=== PATIENT | female | born 1935 | race Caucasian/White ===

== ENCOUNTER → 2016-06-30 | Outpatient (CLI) | payer MEDICARE, MEDICAID ==
[2016-06-30 16:33] LABS: CH 30.4; CHCM 32.3; HCT 43.5 % (34.0-46.0); HDW 2.62; MCH 30.5 pg (25.0-35.0); MCHC 32.2 g/dL (31.0-37.0); MCV 94.6 fL (80.0-100.0); Mean Platelet Volume 6.7; RDW 13.9 % (11.5-15.5); WBC 7.4 k/uL (3.8-10.6)
[2016-06-30 16:42] LABS: Anion Gap 7 mmol/L; Blood Urea Nitrogen 14 mg/dL (7-17); Carbon Dioxide 29 mmol/L (22-30); Chloride 106 mmol/L (98-107); Non-African American GFR(MDRD) >60 (>60 ml/min/1.73 sqM); Potassium 4.2 mmol/L (3.5-5.1); Sodium 142 mmol/L (137-145)
== END | disposition home or self-care (01) ==
LOC: LABWHC1 15:52
PROVIDERS: ATTEND Internal Medicine Interventional Cardiology
DX: Z01.812 Encounter for preprocedural laboratory examination (principal); I73.9 Peripheral vascular disease, unspecified
CPT/HCPCS: 80051; 82565; 84520; 85027

== ENCOUNTER 2016-07-06 10:20 | Day surgery (SDC) | payer MEDICARE, MEDICAID ==
[2016-06-30 14:19] VITALS: BMI 28.1
[~2016-07-06 10:20] MED LIST: ASPIRIN 325 MG TAB PO ONE; SODIUM CHLORIDE 0.9% 1,000 ML in EMPTY BAG 1 BAG IV ONE
[2016-07-06 10:48] VITALS: RESP 18
[2016-07-06] MEDS: MIDAZOLAM 2 MG/2 ML VIAL IVP ONE ×2 (12:10→12:16)
[2016-07-06] MEDS ORDERED: LIDOCAINE 2% INJ 20 MG/ML SQ ONE (12:15)
[2016-07-06] MEDS ORDERED: HEPARIN SODIUM 1,000 UNIT/ML VIAL IV ONE (12:16)
[2016-07-06] MEDS: VERAPAMIL SYRINGE (5 MG/10 ML) INTRAARTER ONE ×2 (12:17→12:30)
[2016-07-06] MEDS ORDERED: IODIXANOL 320 MG/ML 100 ML INTRAARTER ONE (12:31)
[2016-07-06] MEDS ORDERED: SODIUM CHLORIDE 0.9% 1,000 ML IV SCH (12:45)
--- NOTE | 2016-07-06 13:10 | IR ---
EXAMINATION TYPE: IR angio abdominal w runoff DATE OF EXAM: 07/06/2016 1:05 PM COMPARISON: NONE HISTORY: Peripheral vascular occlusive disease. Fluoroscopy was applied to the referring clinician. See dictated report from cardiology.
[2016-07-06 18:18] VITALS: BP 125/62; PULSE 60; TEMP 98.2
--- NOTE | 2016-07-07 05:59 | PCN ---
DATE OF PROCEDURE: 07/06/2016 ABDOMINAL AORTOGRAM AND BILATERAL LOWER EXTREMITY RUNOFF PERFORMING PHYSICIAN: Salvador Cotton MD, stunner animal. PROCEDURE PERFORMED: 1. Abdominal aortogram. 2. Bilateral lower extremity runoff. INDICATION: This is a pleasant 80-year-old female patient who sees Dr. Teague as an outpatient, who was experiencing lower extremity discomfort consistent with intermittent claudication who underwent an arterial duplex study recently in our office and that study showed peripheral arterial disease. APPROACH: Right radial artery. COMPLICATIONS: None. LEVEL OF SEDATION: Moderate. PROCEDURE DESCRIPTION: After obtaining an informed consent, the patient was brought to the cardiac lab technologist. The right radial artery was cannulated using micropuncture technique. The micropuncture wire passed easily and I placed 5-[place] Island[place] sheath in the right radial artery. Subsequently, the patient was given 2 mg of verapamil IA, 3000 units of heparin IV. Then I did an abdominal aortogram and bilateral lower extremity runoff using 5-[place] pigtail catheter, which was initially placed at the level of the renal arteries then it was advanced into above the bifurcation of the aorta to right and left common iliac arteries. The procedure was completed without any completion. SELECTIVE PERIPHERAL ANGIOGRAM. 1. The abdominal aorta appeared to be calcified with mild disease only. 2. Common Iliac Arteries: The right common iliac artery is occluded from the ostium and reconstitutes above the bifurcation of the common iliacs right and left to right external and right internal iliac arteries. The left common iliac artery appeared to have mild disease only. 3. The External Iliac Artery: The right and left external iliac arteries appear to have mild disease only. 4. The Internal Iliac Arteries: The right and left internal iliac arteries are patent. 5. Common Femoral Arteries: The right and left common femoral arteries are angiographically normal. 6. Profunda: The right and left profunda are normal. 7. SFA: The right and left SFA appear to have mild disease only. 8. Popliteal: The right and left popliteal appear to have mild disease only. 9. Below the Knee: There are ( ) runoff below the knee bilaterally. 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 POSTPROCEDURE MANAGEMENT: I will discuss with the patient how symptomatic she is on the right side and if she is symptomatic I will consider doing a PROSTHETICS LAB TECHNICIAN of the right common iliac artery.
== END 2016-07-06 18:34 | disposition home or self-care (01) ==
LOC: CATHCVL 10:20
PROVIDERS: ATTEND Internal Medicine Interventional Cardiology
DX: I73.9 Peripheral vascular disease, unspecified (principal); I77.9 Disorder of arteries and arterioles, unspecified; I70.0 Atherosclerosis of aorta; I10 Essential (primary) hypertension; E78.5 Hyperlipidemia, unspecified; I25.10 Atherosclerotic heart disease of native coronary artery without angina pectoris; Z95.5 Presence of coronary angioplasty implant and graft; I25.2 Old myocardial infarction; I48.92 Unspecified atrial flutter; I48.91 Unspecified atrial fibrillation; Z79.01 Long term (current) use of anticoagulants; Z79.899 Other long term (current) drug therapy; Z88.8 Allergy status to other drugs, medicaments and biological substances; Z87.891 Personal history of nicotine dependence
CPT/HCPCS: 36200; 75625; 75716; 99156; 99157; C1769 ×5; C1894 ×2; J2001; J2250; Q9967; J1644

== ENCOUNTER → 2016-08-31 | Outpatient (CLI) | payer MEDICARE, MEDICAID ==
[2016-08-31 12:34] LABS: CH 30.5; CHCM 32.7; HCT 43.8 % (34.0-46.0); HDW 2.77; HGB 14.1 gm/dL (11.4-16.0); MCH 30.2 pg (25.0-35.0); MCHC 32.2 g/dL (31.0-37.0); MCV 93.6 fL (80.0-100.0); Mean Platelet Volume 6.7; RBC 4.67 m/uL (3.80-5.40); RDW 13.6 % (11.5-15.5); WBC 10.5 k/uL (3.8-10.6)
[2016-08-31 13:13] LABS: Anion Gap 11 mmol/L; Blood Urea Nitrogen 14 mg/dL (7-17); Carbon Dioxide 32 mmol/L (22-30); Chloride 100 mmol/L (98-107); Non-African American GFR(MDRD) 60 (>60 ml/min/1.73 sqM); Potassium 3.4 mmol/L (3.5-5.1); Sodium 143 mmol/L (137-145)
== END ==
LOC: LABPAT 11:33
PROVIDERS: ATTEND Internal Medicine Interventional Cardiology
DX: Z01.812 Encounter for preprocedural laboratory examination (principal); I71.9 Aortic aneurysm of unspecified site, without rupture
CPT/HCPCS: 80051; 82565; 84520; 85027

== ENCOUNTER 2016-09-10 06:29 | Day surgery (SDC) | payer MEDICARE, MEDICAID ==
[2016-08-31 10:34] VITALS: BMI 28.3
[~2016-09-10 06:29] MED LIST changes: -ASPIRIN 325 MG TAB PO ONE
[2016-09-10] MEDS ORDERED: IV FLUID CONTINUATION 1,000 ML IV ONE (07:20)
[2016-09-10] MEDS: MIDAZOLAM 2 MG/2 ML VIAL IV ONE ×2 (07:45→07:53)
[2016-09-10] MEDS ORDERED: LIDOCAINE 2% INJ 20 MG/ML SQ ONE (07:47)
[2016-09-10] MEDS: HYDROmorphone 2 MG/ML 1 ML SYRINGE IV ONE ×3 (07:50→08:13)
[2016-09-10] MEDS ORDERED: HEPARIN SODIUM 1,000 UNIT/ML VIAL IV ONE (07:51)
[2016-09-10] MEDS ORDERED: MIDAZOLAM 2 MG/2 ML VIAL IV ONE (08:26)
[2016-09-10] MEDS ORDERED: fentaNYL (PF) 50 MCG/ML 2 ML AMP IV ONE (08:31)
[2016-09-10] MEDS ORDERED: HYDROmorphone 2 MG/ML 1 ML SYRINGE IV ONE (08:47)
[2016-09-10] MEDS ORDERED: CLOPIDOGREL 75 MG TAB PO ONE (09:27)
[2016-09-10] MEDS ORDERED: guaiFENesin 600 MG TABLET.ER PO PRN (10:37)
[2016-09-10] MEDS ORDERED: FUROSEMIDE 20 MG TAB PO PRN (10:37)
[2016-09-10] MEDS ORDERED: SODIUM CHLORIDE 0.9% 1,000 ML IV SCH (10:45)
[2016-09-10] MEDS ORDERED: IODIXANOL 320 MG/ML 100 ML INTRAARTER ONE (10:51)
--- NOTE | 2016-09-10 11:14 | IR ---
EXAMINATION TYPE: IR stent intravas non coronary DATE OF EXAM: 09/10/2016 11:11 AM COMPARISON: NONE HISTORY: Peripheral vascular occlusive disease. Fluoroscopy was applied to the referring clinician. See dictated report from cardiology.
[2016-09-10] MEDS ORDERED: METOPROLOL SUCCINATE (ER) 25 MG TAB.ER.24H PO STA (12:06)
[2016-09-10 13:13] LABS: Magnesium 1.5 mg/dL (1.6-2.3); Potassium 3.5 mmol/L (3.5-5.1)
--- NOTE | 2016-09-10 13:13 | PCN ---
DATE OF SERVICE: 09/10/2016 PERCUTANEOUS PERIPHERAL INTERVENTION PERFORMING PHYSICIAN: Salvador Cotton MD, boilermaker ship. PROCEDURE PERFORMED: 1. 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 2. Selective bilateral common iliac arteries angiogram. 3. Selective bilateral external iliac arteries angiogram. 4. Selective bilateral common femoral arteries angiogram. 5. Successful kissing stents of bilateral common iliac arteries using a 7.0 x 40 on the right and 8.0 x 40 on the left balloon expandable stent with good angiographic results. 6. Successful stenting of the right external iliac artery using 7.0 x 50 Viabahn self-expandable stent, as well as 7.0 x 39 mm another self-expandable stent with a good angiographic result. INDICATION: This is a very pleasant 80-year-old female patient who was experiencing right leg discomfort consistent with intermittent claudication who underwent a peripheral angiogram a few weeks ago and that showed occluded right common iliac artery from the ostium with reconstitution in the external iliac artery. She was brought today to undergo a RIG HAND of the right common iliac artery. APPROACH: Right common femoral artery and left common femoral artery in retrograde fashion. COMPLICATION: Dissection of the right external iliac artery which was stented. LEVEL OF SEDATION: Moderate with sedation length about 2-1/2 hours. PROCEDURE DESCRIPTION: After obtaining an informed consent, the patient was brought to the cardiac laborer. The right common iliac artery was cannulated using micropuncture technique. The micropuncture wire passed easily and then I placed initially an 5 Belgian 23 cm Brite tip sheath in the right common femoral artery. At that point, anticoagulation was initiated using heparin and the patient was given a weight-based heparin. Subsequently, I did stat anticoagulation using heparin and the patient was given a weight -based heparin. After that, I tried to cross the WASHER AND CAPPER MACHINE OPERATOR of the right common iliac artery and I was able to using an 0.035 Glidewire initially, then I used an 0.018 Astato wire and I was able to cross the WASHER AND CAPPER MACHINE OPERATOR of the right common iliac artery, then I did advance an 0.035 QuickCross catheter and I was able to inject blood in the aorta to prove that I was in the true lumen. At that point, I did access the left common femoral artery using micropuncture technique. The micropuncture wire passed easily. Then I placed a 7 Belgian 23 cm Brite tip sheath in the left common femoral artery preparing for kissing technique using covered stent. After that, I did upgrade my sheath on the right side from 5 Belgian into 7 Belgian where I placed a 7 Belgian 23 cm Brite tip sheath in the right common femoral artery. I did selective bilateral common iliac artery and external iliac arteries angiogram. At that point, I took a 7.0 x 40 balloon expandable stent, which was covered stent and 8.0 x 40 balloon expandable which was also covered stent to do bilateral kissing stents. The 7.0 stent was placed on the right and the 8.0 was placed on the left. Both placements were performed under fluoroscopic guidance with contract injection. I deployed 2 stents simultaneously with a kissing technique where both the stents were deployed under 12 atmospheres for 1 minute. The following angiogram showed good angiographic results in the right common iliac arteries. I did pull my 23 cm Brite tip sheath down just above the inguinal ligament and then I injected contrast to assess the right external iliac artery and I found there was what seems to be a ( ) dissection. I decided to cover that with self-expandable stent so initially I placed a 7.0 x 50 and then 7.0 x 39 mm self-expandable stent. The following angiogram showed good angiographic results. At that point, I did exchange my 23 cm Brite tip sheath to an 11 cm sheath, which was a 7 Belgian sheath on each side. Finally, I did selective bilateral common iliac artery angiogram. The procedure was completed without any complication. POSTPROCEDURE MANAGEMENT: 1. Dual antiplatelet therapy. 2. Risk factor modification. 3. Follow up with the patient.
[2016-09-10] MEDS: HYDROcodone/APAP 7.5-325MG 1 EACH TAB PO PRN ×2 (13:34→21:57)
[2016-09-10] MEDS ORDERED: Potassium Replacement Protocol 1 EACH MISC MISCELLANE PRN (14:16)
[2016-09-10] MEDS ORDERED: Magnesium Replacement Protocol 1 EACH MISC MISCELLANE PRN (14:16)
[2016-09-10] MEDS ORDERED: HYDROmorphone 1 MG/ML 1 ML SYRINGE IVP STA (14:17)
[2016-09-10] MEDS: POTASSIUM CHLORIDE 10 MEQ, LIDOCAINE 2% INJ 10 MG in SODIUM CHLORIDE 0.9% 100 ML IV SCH ×2 (15:49→18:31)
[2016-09-10] MEDS: MAGNESIUM SULFATE-D5W PMX 1 GM in DEXTROSE/WATER 1 100ML.BAG IVPB SCH ×2 (16:19→18:31)
[2016-09-10] MEDS ORDERED: ONDANSETRON 4 MG/2 ML VIAL IVP PRN (18:26)
[2016-09-10] MEDS ORDERED: LISINOPRIL 5 MG TAB PO SCH (21:00)
[2016-09-10] MEDS: METOPROLOL SUCCINATE (ER) 25 MG TAB.ER.24H PO SCH (21:55)
[2016-09-10] MEDS: ATORVASTATIN 80 MG TAB PO SCH ×2 (21:57→22:00)
[2016-09-11 06:20] LABS: Basophils % (A) 0 %; CH 30.7; CHCM 33.4; Eosinophils # (A) 0.1 k/uL (0-0.7); Eosinophils % (A) 1 %; HCT 35.8 % (34.0-46.0); HDW 2.82; HGB 11.9 gm/dL (11.4-16.0); Luc # (Auto) 0.22; Luc % (Auto) 3; Lymphocytes # (A) 1.5 k/uL (1.0-4.8); Lymphocytes % (A) 18 %; MCH 30.8 pg (25.0-35.0); MCHC 33.3 g/dL (31.0-37.0); MCV 92.3 fL (80.0-100.0); Mean Platelet Volume 6.7; Monocytes # (A) 0.6 k/uL (0-1.0); Monocytes % (A) 7 %; Neutrophils % (A) 72 %; RBC 3.88 m/uL (3.80-5.40); RDW 13.6 % (11.5-15.5); WBC 8.4 k/uL (3.8-10.6); WBC (Perox) 9.24
[2016-09-11 06:30] LABS: Anion Gap 6 mmol/L; Blood Urea Nitrogen 12 mg/dL (7-17); Calcium 8.7 mg/dL (8.4-10.2); Carbon Dioxide 26 mmol/L (22-30); Chloride 107 mmol/L (98-107); Glucose 99 mg/dL (74-99); Non-African American GFR(MDRD) >60 (>60 ml/min/1.73 sqM); Potassium 3.8 mmol/L (3.5-5.1); Sodium 139 mmol/L (137-145)
[2016-09-11] MEDS: LEVOTHYROXINE 50 MCG TAB PO SCH ×2 (06:36→06:54)
[2016-09-11] MEDS: METOPROLOL SUCCINATE (ER) 25 MG TAB.ER.24H PO SCH (08:35)
[2016-09-11] MEDS ORDERED: CLOPIDOGREL 75 MG TAB PO SCH (09:00)
[2016-09-11] MEDS ORDERED: FAMOTIDINE 20 MG TAB PO SCH (09:00)
[2016-09-11] MEDS ORDERED: amLODIPine 10 MG TAB PO SCH (09:00)
[2016-09-11] MEDS ORDERED: ASPIRIN 325 MG TAB PO SCH (09:00)
[2016-09-11 09:09] VITALS: BP 109/58; PULSE 63; RESP 18; TEMP 97.1
--- NOTE | 2016-09-13 11:55 | DS ---
DATE OF ADMISSION: 09/10/2016 DATE OF DISCHARGE: 09/11/2016 BRIEF HISTORY: This is a pleasant 80-year-old female patient who sees Dr. Teague as an outpatient, who was admitted to the hospital on September 10, 2016 and underwent successful kissing stents of right and left common iliac arteries with a good angiographic result and without any complication from bilateral groin approach. Both the groins are soft and nontender and without any bruises. The patient is going to be discharged on dual antiplatelet therapy and I will follow up with the patient as an outpatient in the office.
== END 2016-09-11 11:54 | disposition home or self-care (01) ==
LOC: CATHCVL 06:29 → 6SEL 10:38 → CATHCVL 09-11 11:54
PROVIDERS: ATTEND Internal Medicine Interventional Cardiology
DX: I73.9 Peripheral vascular disease, unspecified (principal); I74.5 Embolism and thrombosis of iliac artery; I70.92 Chronic total occlusion of artery of the extremities; Z87.891 Personal history of nicotine dependence; E78.5 Hyperlipidemia, unspecified; I25.10 Atherosclerotic heart disease of native coronary artery without angina pectoris; Z95.5 Presence of coronary angioplasty implant and graft; I65.23 Occlusion and stenosis of bilateral carotid arteries; I25.5 Ischemic cardiomyopathy; I48.92 Unspecified atrial flutter; I48.91 Unspecified atrial fibrillation; I10 Essential (primary) hypertension; I49.5 Sick sinus syndrome; I51.7 Cardiomegaly; J44.9 Chronic obstructive pulmonary disease, unspecified; I25.2 Old myocardial infarction; Z79.01 Long term (current) use of anticoagulants; Z79.891 Long term (current) use of opiate analgesic; Z79.899 Other long term (current) drug therapy; Z88.8 Allergy status to other drugs, medicaments and biological substances
CPT/HCPCS: 37221; 37223; 85347; 80051; 80048; 83735 ×2; 85025; 99152; 99153 ×6; C1769 ×7; C1894 ×2; C1725; C1876; C1887; C1874 ×2; J2001; J2250; J1170 ×2; Q9967; J2405; J3480; J3010; J1644; J3475

== ENCOUNTER → 2016-10-01 | Outpatient (CLI) | payer MEDICARE, MEDICAID ==
--- NOTE | 2016-10-01 14:23 | US ---
EXAMINATION TYPE: US venous doppler duplex LE BI DATE OF EXAM: 10/01/2016 1:43 PM COMPARISON: NONE CLINICAL HISTORY: Deep Vein Thrombosis Z86.718. No hx of blood clots. On blood thinners. Bilateral leg pain. Lower arterial surgery x 3 weeks ago. SIDE PERFORMED: Bilateral. TECHNIQUE: The lower extremity deep venous system is examined utilizing real time linear array sonog jaqui with graded compression, doppler sonography and color-flow sonography. VESSELS IMAGED: External Iliac Vein (EIV) Common Femoral Vein Deep Femoral Vein Greater Saphenous Vein * Femoral Vein Popliteal Vein Small Saphenous Vein * Proximal Calf Veins (* superficial vessels) Suboptimal exam due to patient tender at touch Right Leg: Appears negative for DVT Left Leg: Appears negative for DVT IMPRESSION: No evidence for DVT.
== END | disposition home or self-care (01) ==
LOC: RADUSWWP 13:06
PROVIDERS: ATTEND Internal Medicine Clinical Cardiac Electrophysiology
DX: M79.606 Pain in leg, unspecified (principal); R22.40 Localized swelling, mass and lump, unspecified lower limb; Z86.718 Personal history of other venous thrombosis and embolism
CPT/HCPCS: 93970

== ENCOUNTER 2016-10-09 16:44 | Emergency (ER) | payer MEDICARE, MEDICAID ==
[2016-10-09 16:50] VITALS: RESP 16
[2016-10-09 17:48] LABS: Calcium 9.6 mg/dL (8.4-10.2); Magnesium 1.6 mg/dL (1.6-2.3); Potassium 3.1 mmol/L (3.5-5.1)
[2016-10-09] MEDS ORDERED: POTASSIUM CHLORIDE ER 10 MEQ TAB.ER.PRT PO STA (17:59)
[2016-10-09 18:09] LABS: Basophils # (A) 0.1 k/uL (0-0.2); Basophils % (A) 1 %; CH 30.5; CHCM 33.8; Eosinophils # (A) 0.2 k/uL (0-0.7); Eosinophils % (A) 3 %; HCT 41.5 % (34.0-46.0); HDW 2.83; HGB 13.7 gm/dL (11.4-16.0); Luc % (Auto) 4; Lymphocytes # (A) 2.6 k/uL (1.0-4.8); Lymphocytes % (A) 31 %; MCV 90.7 fL (80.0-100.0); Mean Platelet Volume 6.8; Monocytes # (A) 0.5 k/uL (0-1.0); Monocytes % (A) 6 %; Neutrophils # (A) 4.6 k/uL (1.3-7.7); Neutrophils % (A) 56 %; RBC 4.58 m/uL (3.80-5.40); RDW 13.5 % (11.5-15.5); WBC 8.3 k/uL (3.8-10.6); WBC (Perox) 8.36
--- NOTE | 2016-10-09 18:42 | ED ---
Recheck HPI - General Chief Complaint: Recheck/Abnormal Lab/Rx Stated Complaint: Lab Redraw Time Seen by Provider: 10/09/16 16:55 Source: patient Mode of arrival: wheelchair Limitations: no limitations - History of Present Illness Initial Comments: 80-year-old female presented for evaluation of abnormal lab. She states that she recently switched to a new primary care physician and was getting new labs for a future CT with IV contrast. The primary goal was to obtain her baseline kidney status however there was noted to be hypokalemia on labs and she was sent to the ED for further evaluation and treatment. She states that she has no complaints at this time. She states this last August she had 3 stents placed in her legs 2 in the right one on the left for peripheral vascular disease. There were no grafts placed for bypasses performed. She is currently on Xarelto and Plavix as well as aspirin. She was also originally started on Lasix which she believes is accountable for the hypokalemia and she denies any potassium supplementation. She denies any chest pain, shortness breath, fevers, chills, nausea, vomiting. She does state that she is having some swelling to her right lower extremity which is the reason for her primary care physician wanting to obtain a CT with IV contrast and runoff. - Related Data Home Medications Medication Instructions Recorded Confirmed Levothyroxine Sodium [Synthroid] 50 mcg PO QAM 11/07/14 10/09/16 Lisinopril [Zestril] 5 mg PO HS 11/07/14 10/09/16 Metoprolol Succinate (ER) [Toprol 25 mg PO BID 11/07/14 10/09/16 XL] amLODIPine [Norvasc] 10 mg PO QAM 11/07/14 10/09/16 guaiFENesin [Mucinex] 600 mg PO BID PRN 11/07/14 10/09/16 HYDROcodone/APAP 7.5-325MG [[place] 1 tab PO Q4H PRN 10/24/15 10/09/16 7.5-325] Rivaroxaban [Xarelto] 20 mg PO HS 06/30/16 10/09/16 Famotidine [Pepcid] 20 mg PO DAILY 07/06/16 10/09/16 Furosemide [Lasix] 60 mg PO DAILY 07/06/16 10/09/16 Rosuvastatin [Crestor] 20 mg PO HS 10/09/16 10/09/16 Previous Rx's Medication Instructions Recorded Aspirin 81 mg PO DAILY #90 tab 09/11/16 Clopidogrel [Plavix] 75 mg PO DAILY #90 tab 09/11/16 Potassium Chloride ER [K-Dur 20] 20 meq PO BID #14 tab 10/09/16 Allergies Allergy/AdvReac Type Severity Reaction Status Date / Time lorazepam [From Ativan] Allergy Hallucinati Verified 10/09/16 17:15 ons hydromorphone [From Dilaudid] AdvReac Nausea Verified 10/09/16 17:15 Review of Systems ROS Statement: Those systems with pertinent positive or pertinent negative responses have been documented in the HPI. ROS Other: All systems not noted in ROS Statement are negative. Constitutional: Denies: fever, chills Eyes: Denies: eye pain, eye discharge, vision change ENT: Denies: ear pain, throat pain, dental pain Respiratory: Denies: cough, dyspnea, wheezes, hemoptysis, stridor Cardiovascular: Denies: chest pain, palpitations, dyspnea on exertion, orthopnea , edema Endocrine: Denies: fatigue, polydipsia, polyuria Gastrointestinal: Denies: abdominal pain, nausea, vomiting, diarrhea, constipation Genitourinary: Denies: urgency, dysuria Musculoskeletal: Denies: back pain, arthralgia, myalgia Skin: Denies: rash, lesions Neurological: Denies: headache, weakness Psychiatric: Denies: anxiety, depression Hematological/Lymphatic: Denies: easy bleeding, easy bruising Past Medical History Past Medical History: Atrial Fibrillation, Atrial Flutter, Coronary Artery Disease (CAD), Cancer, Heart Failure, COPD, CVA/TIA, Hyperlipidemia, Hypertension, Liver Disease, Vascular Disorder Additional Past Medical History / Comment(s): hx Kidney Stones, Chronic left leg numbness, degenerative arthritis, hx hepatitis C, hx cervical cancer Last Myocardial Infarction Date:: 2009 History of Any Multi-Drug Resistant Organisms: None Reported Past Surgical History: Appendectomy, Cholecystectomy, Heart Catheterization With Stent, Hysterectomy, Joint Replacement, Pacemaker Additional Past Surgical History / Comment(s): 2--17 abd. aortogram, ERCP, 4 cardiac stents, left hip replacement, Past Anesthesia/Blood Transfusion Reactions: Family History of Problems w/ Anesthesia Additional Past Anesthesia/Blood Transfusion Reaction / Comment(s): sister-long time to come out Date of Last Stent Placement:: unknown Type of Cardiac Device: Permanent Pacemaker Device Placement Date:: 2014 Past Psychological History: No Psychological Hx Reported Smoking Status: Former smoker Past Alcohol Use History: Rare Additional Past Alcohol Use History / Comment(s): quit smoking November 2015. SMOKED >35 YEARS 1PPD. Past Drug Use History: None Reported - Past Family History Son(s) Family Medical History: Cancer Father Family Medical History: COPD Additional Family Medical History / Comment(s): EMPHYSEMA Mother Family Medical History: Chest Pain / Angina, Myocardial Infarction ([place]) Brother(s) Family Medical History: Cancer Daughter(s) Family Medical History: Cancer General Exam Limitations: no limitations General appearance: alert, in no apparent distress Head exam: Present: atraumatic, normocephalic, normal inspection Eye exam: Present: normal appearance, PERRL, EOMI. Absent: scleral icterus, conjunctival injection, periorbital swelling ENT exam: Present: normal exam, mucous membranes moist Neck exam: Present: normal inspection. Absent: tenderness, meningismus, lymphadenopathy Respiratory exam: Present: normal lung sounds bilaterally. Absent: respiratory distress, wheezes, rales, rhonchi, stridor Cardiovascular Exam: Present: regular rate, normal rhythm, normal heart sounds. Absent: systolic murmur, diastolic murmur, rubs, gallop, clicks GI/Abdominal exam: Present: soft, normal bowel sounds. Absent: distended, tenderness, guarding, rebound, rigid Rectal exam: Present: deferred Extremities exam: Present: full ROM, pedal edema, other (right lower extremity edema compared to the left). Absent: tenderness Back exam: Present: normal inspection Neurological exam: Present: alert, oriented X3, CN II-XII intact Psychiatric exam: Present: normal affect, normal mood Skin exam: Present: warm, dry, intact, normal color. Absent: rash Course Vital Signs 10/09/16 16:47 Temperature 97.6 F Pulse Rate 87 Respiratory 16 Rate Blood Pressure 129/60 O2 Sat by Pulse 98 Oximetry Medical Decision Making - Medical Decision Making 80-year-old female presented for evaluation of hyperkalemia on outpatient lab draw. She is obtaining these labs in order to prepare for an outpatient CT abdomen with contrast and runoff. This is to evaluate for lower extremity peripheral vascular disease which she had intervention for in August. She had 2 stents placed in her right leg and one stent placed in her left however her right leg is started to swell recently and they would like to obtain a CT to evaluate the patency of the stents. No grafts of bypasses were placed at that time. The patient denies any shortness of breath, chest pain, fevers, chills, nausea, vomiting, abdominal pain. On physical examination her right lower extremity is more edematous than the left but there are no focal point tenderness erythema or focal swelling. Labs are obtained which showed a mild hypokalemia and she was given oral replacement. There is also a mild BONIFACIO noticed on labs. Labs were discussed with pharmacy and given that the patient is on 60 of Lasix daily Will start her on twice a day treatment with oral potassium. The patient was informed of these results and this plan and she agreed. She was advised to follow-up with her primary care physician but also to return this facility for symptoms should worsen or persist. The patient acknowledged an understanding of this information and agreed with this plan of care. - Lab Data Result diagrams: 10/09/16 17:55 10/09/16 17:30 Lab Results 10/09/16 10/09/16 Range/Units 17:30 17:55 WBC 8.3 (3.8-10.6) k/uL RBC 4.58 (3.80-5.40) m/uL Hgb 13.7 (11.4-16.0) gm/dL Hct 41.5 (34.0-46.0) % MCV 90.7 (80.0-100.0) fL MCH 30.0 (25.0-35.0) pg MCHC 33.0 (31.0-37.0) g/dL RDW 13.5 (11.5-15.5) % Plt Count 218 (150-450) k/uL Neutrophils % 56 % Lymphocytes % 31 % Monocytes % 6 % Eosinophils % 3 % Basophils % 1 % Neutrophils # 4.6 (1.3-7.7) k/uL Lymphocytes # 2.6 (1.0-4.8) k/uL Monocytes # 0.5 (0-1.0) k/uL Eosinophils # 0.2 (0-0.7) k/uL Basophils # 0.1 (0-0.2) k/uL Sodium 142 (137-145) mmol/L Potassium 3.1 L (3.5-5.1) mmol/L Chloride 99 (98-107) mmol/L Carbon Dioxide 33 H (22-30) mmol/L Anion Gap 10 mmol/L BUN 29 H (7-17) mg/dL Creatinine 1.33 H (0.52-1.04) mg/dL Est GFR (MDRD) Af Amer 47 (>60 ml/min/1.73 sqM) Est GFR (MDRD) Non-Af 38 (>60 ml/min/1.73 sqM) Glucose 107 H (74-99) mg/dL Calcium 9.6 (8.4-10.2) mg/dL Magnesium 1.6 (1.6-2.3) mg/dL 10/09/16 18:43 Normal sinus rhythm with left axis deviation and incomplete right bundle-branch block. Ventricular rate 72, BARBARA 174, QRS 92, QT/QTc 406/444. Disposition Clinical Impression: Hypokalemia, BONIFACIO (acute kidney injury) Disposition: HOME SELF-CARE Condition: Stable Instructions: Hypokalemia (ED) Additional Instructions: Please use medication as discussed. Please follow up with family doctor if symptoms have not improved over the next two days. Please return to the emergency room if your symptoms increase or worsen or for any other concerns. Prescriptions: Potassium Chloride ER [K-Dur 20] 20 meq PO BID #14 tab Referrals: Bertram Kikrpatrick MD [Primary Care Provider] - 1-2 days Time of Disposition: 18:42
[2016-10-09 19:12] VITALS: BP 129/70; PULSE 78; TEMP 97.8
== END 2016-10-09 19:11 | disposition home or self-care (01) ==
LOC: EC 16:44
DX: E87.6 Hypokalemia (principal); N17.9 Acute kidney failure, unspecified; I48.91 Unspecified atrial fibrillation; I11.0 Hypertensive heart disease with heart failure; I50.9 Heart failure, unspecified; Z86.73 Personal history of transient ischemic attack (TIA), and cerebral infarction without residual deficits; Z85.41 Personal history of malignant neoplasm of cervix uteri; Z87.891 Personal history of nicotine dependence; Z88.5 Allergy status to narcotic agent; Z88.8 Allergy status to other drugs, medicaments and biological substances; Z79.01 Long term (current) use of anticoagulants; Z79.02 Long term (current) use of antithrombotics/antiplatelets; Z79.82 Long term (current) use of aspirin; Z79.899 Other long term (current) drug therapy
CPT/HCPCS: 36415; 80048; 80053; 83735; 85025; 85027; 93005; 99283

== ENCOUNTER → 2016-10-09 | Outpatient (CLI) | payer MEDICARE, MEDICAID ==
[2016-10-09 16:04] LABS: Calcium 9.6 mg/dL (8.4-10.2); Total Bilirubin 0.7 mg/dL (0.2-1.3); Total Protein 7.4 g/dL (6.3-8.2)
[2016-10-09 16:05] LABS: CH 29.9; HCT 42.8 % (34.0-46.0); HDW 2.86; HGB 13.7 gm/dL (11.4-16.0); MCH 29.2 pg (25.0-35.0); MCHC 32.1 g/dL (31.0-37.0); Mean Platelet Volume 6.9; RBC 4.71 m/uL (3.80-5.40); RDW 13.5 % (11.5-15.5); WBC 9.2 k/uL (3.8-10.6)
== END | disposition home or self-care (01) ==
LOC: LABWHC1 15:29
PROVIDERS: ATTEND Internal Medicine
DX: R60.9 Edema, unspecified (principal)
CPT/HCPCS: 36415; 80053; 85027

== ENCOUNTER → 2016-10-19 | Outpatient (CLI) | payer MEDICARE, MEDICAID ==
--- NOTE | 2016-10-19 16:04 | CT ---
EXAMINATION TYPE: CT abdomen pelvis wo con DATE OF EXAM: 10/19/2016 2:51 PM COMPARISON: NONE INDICATION: Right leg swelling x 4 years. DLP: 865.00 mGycm, Automated exposure control for dose reduction was used. CONTRAST: None Study performed with Oral Contrast TECHNIQUE: Axial images were obtained from above the diaphragm to the pubic rami in the axial plane a t 5 mm thick sections. Reconstructed images are reviewed on the computer in the coronal plane. FINDINGS: Limited CT sections are obtained the lung bases. The lung bases are clear. CT ABDOMEN: Liver: Normal Spleen: Normal Pancreas: Normal Adrenal glands: The adrenal glands are normal. Gallbladder: Not visualized Kidneys: No masses are evident. No hydronephrosis is present. No cysts are present. There is a 1.1 x 0.3 cm calcification at the inferior pole right kidney. Aorta: Vascular calcification is within the aorta. There is fusiform prominence of the distal abdomi nal aorta with an AP diameter of 2.1 cm. This extends to the bifurcation. Inferior vena cava: Normal. CT PELVIS: Lower pelvis is limitation due to beam hardening artifact from the left hip prosthesis. Loops of bowel within the abdomen and pelvis are normal. There are loops of bowel which are incom pletely distended or lack oral contrast limiting their evaluation. Diverticular changes are within th e sigmoid colon. No acute diverticulitis is evident. Appendix: Not visualized. Urinary bladder: Normal. Genitourinary structures: Uterus and ovaries are not identified. Osseous structures: No suspicious lytic or sclerotic lesions. Facet degenerative changes are through the lumbar spine. IMPRESSIONS: 1. Nonobstructing inferior pole right renal stone. 2. Fusiform prominence distal abdominal aorta with an AP diameter of 2.1 cm. 3. Diverticulosis without acute diverticulitis sigmoid colon. 4. Facet degenerative changes lower lumbar spine. 5. No suspicious masses to account for swelling lower extremities
== END | disposition home or self-care (01) ==
LOC: RADCTMAIN 12:11
PROVIDERS: ATTEND Internal Medicine
DX: N20.0 Calculus of kidney (principal); K57.90 Diverticulosis of intestine, part unspecified, without perforation or abscess without bleeding; R60.9 Edema, unspecified
CPT/HCPCS: 36415; 74176; 82565; 84520

== ENCOUNTER 2017-03-08 17:58 | Inpatient (IN) | payer MEDICARE, MEDICAID ==
[2017-03-08] MEDS ORDERED: SODIUM CHLORIDE 0.9% 1,000 ML IV STA ×2 (19:37)
--- NOTE | 2017-03-08 19:40 | ED ---
Recheck HPI - General Chief Complaint: Recheck/Abnormal Lab/Rx Stated Complaint: Sent by Tomaryann ABnormal Labs Time Seen by Provider: 03/08/17 19:16 Source: patient Mode of arrival: wheelchair Limitations: no limitations - History of Present Illness Initial Comments: patient states she was sent to the ER today for abnormal lab work done earlier this morning. States she's not sure what the abnormal lab work was, however she was told to stop taking her Lasix. patient does states she's been urinating less recently. Patient admits to softer than normal light brown stools 3-4 times a day over the past 2 weeks. Patient states she has left lower quadrant pain when she lifts her right leg. Patient denies nausea, vomiting, changes in appetite, fevers, chills. States her Lasix has slowly been increase outpatient , was increased from 40 mg to 60 mg 2 months ago. Patient states she thinks she drinks a lot of water. States she still able to urinate throughout the day , however it is smaller amounts, it is clear per patient. Denies blood in her stools. she complains of mild abdominal bloating. Complaint: abnormal lab - Related Data Home Medications Medication Instructions Recorded Confirmed Levothyroxine Sodium [Synthroid] 50 mcg PO DAILY 11/07/14 03/08/17 Lisinopril [Zestril] 5 mg PO HS 11/07/14 03/08/17 Metoprolol Succinate (ER) [Toprol 25 mg PO BID 11/07/14 03/08/17 XL] Famotidine [Pepcid] 20 mg PO DAILY 07/06/16 03/08/17 Furosemide [Lasix] 60 mg PO DAILY 07/06/16 03/08/17 Rosuvastatin [Crestor] 20 mg PO HS 10/09/16 03/08/17 Triamterene-Hctz 37.5-25Mg 1 cap PO DAILY 03/08/17 03/08/17 [Dyazide 37.5-25 Capsule] Previous Rx's Medication Instructions Recorded Clopidogrel [Plavix] 75 mg PO DAILY #90 tab 09/11/16 Allergies Allergy/AdvReac Type Severity Reaction Status Date / Time hydromorphone [From Dilaudid] AdvReac Nausea & Verified 03/08/17 20:03 Vomiting lorazepam [From Ativan] AdvReac Hallucinati Verified 03/08/17 20:03 ons Review of Systems ROS Statement: Those systems with pertinent positive or pertinent negative responses have been documented in the HPI. ROS Other: All systems not noted in ROS Statement are negative. Constitutional: Denies: fever, chills, weakness Eyes: Denies: vision change ENT: Reports: congestion Respiratory: Denies: cough, dyspnea Cardiovascular: Denies: chest pain, palpitations Endocrine: Denies: fatigue Gastrointestinal: Reports: abdominal pain, diarrhea. Denies: nausea, vomiting, constipation, hematemesis, melena, hematochezia Genitourinary: Reports: frequency, other (decreased urine). Denies: urgency, dysuria, hematuria, discharge Musculoskeletal: Denies: back pain Skin: Denies: rash Neurological: Denies: headache, weakness, numbness, confusion Past Medical History Past Medical History: Atrial Fibrillation, Atrial Flutter, Coronary Artery Disease (CAD), Cancer, Heart Failure, COPD, CVA/TIA, Hyperlipidemia, Hypertension, Liver Disease, Vascular Disorder Additional Past Medical History / Comment(s): hx Kidney Stones, Chronic left leg numbness, degenerative arthritis, hx hepatitis C, hx cervical cancer Last Myocardial Infarction Date:: 2009 History of Any Multi-Drug Resistant Organisms: None Reported Past Surgical History: Appendectomy, Cholecystectomy, Heart Catheterization With Stent, Hysterectomy, Joint Replacement, Pacemaker Additional Past Surgical History / Comment(s): 2--17 abd. aortogram, ERCP, 4 cardiac stents, left hip replacement, Past Anesthesia/Blood Transfusion Reactions: Family History of Problems w/ Anesthesia Additional Past Anesthesia/Blood Transfusion Reaction / Comment(s): sister-long time to come out Date of Last Stent Placement:: unknown Type of Cardiac Device: Permanent Pacemaker Device Placement Date:: 2014 Past Psychological History: No Psychological Hx Reported Smoking Status: Former smoker Past Alcohol Use History: Rare Past Drug Use History: None Reported - Past Family History Son(s) Family Medical History: Cancer Father Family Medical History: COPD Additional Family Medical History / Comment(s): EMPHYSEMA Mother Family Medical History: Chest Pain / Angina, Myocardial Infarction ([place]) Brother(s) Family Medical History: Cancer Daughter(s) Family Medical History: Cancer General Exam - General Exam Comments Initial Comments: Sitting up in bed. No acute distress. Conversing normally. Calm, pleasant. Well appearing. Limitations: no limitations General appearance: alert, in no apparent distress Head exam: Present: atraumatic, normocephalic Eye exam: Present: normal appearance, PERRL, EOMI ENT exam: Present: normal exam, normal oropharynx, mucous membranes moist, normal external ear exam Neck exam: Present: normal inspection Respiratory exam: Present: normal lung sounds bilaterally. Absent: respiratory distress, wheezes, rales Cardiovascular Exam: Present: regular rate, normal rhythm GI/Abdominal exam: Present: soft, tenderness, other (tenderness palpation left lower quadrant). Absent: distended, guarding, rebound Extremities exam: Present: other (no edema to the lower extremities) Neurological exam: Present: alert, oriented X3, CN II-XII intact Psychiatric exam: Present: normal affect, normal mood Skin exam: Present: warm, dry, intact, normal color. Absent: rash Course Vital Signs 03/08/17 03/08/17 03/08/17 18:21 19:23 20:22 Temperature 97.6 F Pulse Rate 55 L 92 81 Respiratory 17 17 Rate Blood Pressure 115/71 127/61 107/63 O2 Sat by Pulse 98 98 100 Oximetry 03/08/17 21:40 Temperature 97.9 F Pulse Rate 80 Respiratory 18 Rate Blood Pressure 132/68 O2 Sat by Pulse 99 Oximetry Medical Decision Making - Medical Decision Making Review of blood work from this morning shows BUN in the 80s, creatinine 2. Patient with decreased urine, history of UTIs per patient, "soft stools" but not "diarrhea". Patient denies blood in her stools, hemoglobin level within normal range on blood work from earlier today. give IV fluids given. CT abdomen with oral contrast only ordered to rule out possible diverticulitis or other etiologies of left lower quadrant tenderness and pain. BUN and creatinine significantly elevated on repeat, we'll continue with IV fluid hydration. UA shows infection, IV Rocephin given, culture sent. CT the abdomen shows diverticulosis without diverticulitis, no renal stones. plan for observation for, complicated UTI, acute renal failure likely secondary to dehydration versus diuretic use. Pt updated results and plan. spoke with Dr. Ponce, updated with patient condition and results, agrees with observation, no further requests at this time. - Lab Data Result diagrams: 03/08/17 19:30 03/08/17 19:30 Lab Results 03/08/17 03/08/17 03/08/17 Range/Units 19:30 19:30 19:30 WBC 8.0 (3.8-10.6) k/uL RBC 4.71 (3.80-5.40) m/uL Hgb 14.0 (11.4-16.0) gm/dL Hct 42.8 (34.0-46.0) % MCV 90.8 (80.0-100.0) fL MCH 29.6 (25.0-35.0) pg MCHC 32.6 (31.0-37.0) g/dL RDW 15.1 (11.5-15.5) % Plt Count 217 (150-450) k/uL Neutrophils % 50 % Lymphocytes % 37 % Monocytes % 7 % Eosinophils % 2 % Basophils % 1 % Neutrophils # 4.0 (1.3-7.7) k/uL Lymphocytes # 3.0 (1.0-4.8) k/uL Monocytes # 0.6 (0-1.0) k/uL Eosinophils # 0.2 (0-0.7) k/uL Basophils # 0.1 (0-0.2) k/uL Sodium 142 (137-145) mmol/L Potassium 5.5 H (3.5-5.1) mmol/L Chloride 103 (98-107) mmol/L Carbon Dioxide 23 (22-30) mmol/L Anion Gap 16 mmol/L BUN 85 H* (7-17) mg/dL Creatinine 2.80 H (0.52-1.04) mg/dL Est GFR (MDRD) Af Amer 20 (>60 ml/min/1.73 sqM) Est GFR (MDRD) Non-Af 16 (>60 ml/min/1.73 sqM) Glucose 109 H (74-99) mg/dL Calcium 10.6 H (8.4-10.2) mg/dL Urine Color Light Yellow Urine Appearance Cloudy H (Clear) Urine pH 6.0 (5.0-8.0) Ur Specific Merritt 1.008 (1.001-1.035) Urine Protein Negative (Negative) Urine Glucose (UA) Negative (Negative) Urine Ketones Negative (Negative) Urine Blood Trace H (Negative) Urine Nitrite Negative (Negative) Urine Bilirubin Negative (Negative) Urine Urobilinogen <2.0 (<2.0) mg/dL Ur Leukocyte Esterase Large H (Negative) Urine RBC 2 (0-5) /hpf Urine WBC >182 H (0-5) /hpf Urine WBC Clumps Few H (None) /hpf Ur Squamous Epith Cells <1 (0-4) /hpf Urine Bacteria Moderate H (None) /hpf Hyaline Casts 1 (0-2) /lpf Urine Mucus Rare H (None) /hpf Disposition Clinical Impression: Complicated UTI (urinary tract infection), Acute renal failure Disposition: ADMITTED IP TO THIS HOSP Condition: Good Referrals: Bertram Kirkpatrick MD [Primary Care Provider] - 1-2 days
[2017-03-08] MEDS ORDERED: IOHEXOL 350 MG/ML 25 ML BOTTLE (ORAL USE) PO PRN (19:42)
[2017-03-08 19:57] LABS: Basophils # (A) 0.1 k/uL (0-0.2); Basophils % (A) 1 %; CH 30.7; Eosinophils # (A) 0.2 k/uL (0-0.7); Eosinophils % (A) 2 %; HCT 42.8 % (34.0-46.0); HDW 2.47; Luc # (Auto) 0.28; Luc % (Auto) 3; Lymphocytes % (A) 37 %; MCH 29.6 pg (25.0-35.0); MCHC 32.6 g/dL (31.0-37.0); MCV 90.8 fL (80.0-100.0); Mean Platelet Volume 7.7; Monocytes # (A) 0.6 k/uL (0-1.0); Monocytes % (A) 7 %; Neutrophils % (A) 50 %; RBC 4.71 m/uL (3.80-5.40); RDW 15.1 % (11.5-15.5); WBC (Perox) 7.89
[2017-03-08 20:01] LABS: Appearance,Urine Cloudy (Clear); Bacteria,Urine Moderate /hpf; Bilirubin,Urine Negative (Negative); Glucose,Urine (UA) Negative (Negative); Ketones,Urine Negative (Negative); Leukocyte Esterase,Urine Large (Negative); Mucus,Urine Rare /hpf; Nitrite,Urine Negative (Negative); Particle Count 24317; Protein,Urine Negative (Negative); RBC,Urine 2 /hpf (0-5); Specific Gravity,Urine 1.008 (1.001-1.035); Squamous Epithelial Cell,Urine <1 /hpf (0-4); UA Billing (MACRO vs. MICRO) MICRO; Urobilinogen,Urine <2.0 mg/dL (<2.0); WBC,Urine >182 /hpf (0-5)
[2017-03-08 20:10] LABS: Calcium 10.6 mg/dL (8.4-10.2); Potassium 5.5 mmol/L (3.5-5.1)
--- NOTE | 2017-03-08 21:41 | CT ---
EXAMINATION TYPE: CT abdomen pelvis wo con DATE OF EXAM: 03/08/2017 COMPARISON: NONE HISTORY: Left lower quadrant pain, abnormal labs. CT DLP: 555.70 mGycm Automated exposure control for dose reduction was used. TECHNIQUE: Helical acquisition of images was performed from the lung bases through the pelvis. FINDINGS: Lung bases are clear of consolidation. There is no pleural effusion. Liver shows no focal defect. There is some air in the bile ducts. Spleen appears normal. There is no pancreatic mass. There is atherosclerotic vascular calcification. Bile ducts are not dilated. Cholecy stectomy is noted. There is no adrenal mass. The kidneys show no hydronephrosis. Ureters are not dilated. There is no re troperitoneal adenopathy. Abdominal aorta is atheromatous. There is no ascites. There is left hip pro sthesis. There are multiple diverticula in the sigmoid colon. There is no sign of diverticulitis. Ki dder distends smoothly. There is spondylotic change in the lumbar spine there is a degenerative first degree L4-5 spondylolisthesis. There is L4-5 bony spinal stenosis. There is severe L3-4 bony spinal stenosis. IMPRESSION: ATHEROSCLEROTIC VASCULAR DISEASE. SPINAL STENOSIS IN THE LOWER LUMBAR SPINE. SIGMOID DIVERTICULOSIS WITHOUT SIGN OF DIVERTICULITIS.
[2017-03-09 00:26] VITALS: BMI 29.3
[2017-03-09 08:11] LABS: Basophils % (A) 1 %; CH 30.4; CHCM 33.5; Eosinophils # (A) 0.3 k/uL (0-0.7); Eosinophils % (A) 4 %; HCT 40.1 % (34.0-46.0); HGB 12.6 gm/dL (11.4-16.0); Luc # (Auto) 0.22; Luc % (Auto) 3; Lymphocytes # (A) 2.3 k/uL (1.0-4.8); Lymphocytes % (A) 35 %; MCH 28.5 pg (25.0-35.0); MCHC 31.3 g/dL (31.0-37.0); MCV 91.2 fL (80.0-100.0); Mean Platelet Volume 7.4; Monocytes # (A) 0.5 k/uL (0-1.0); Monocytes % (A) 8 %; Neutrophils # (A) 3.2 k/uL (1.3-7.7); Neutrophils % (A) 49 %; RDW 14.4 % (11.5-15.5); WBC 6.5 k/uL (3.8-10.6); WBC (Perox) 6.57
[2017-03-09 08:33] LABS: Calcium 9.5 mg/dL (8.4-10.2); Potassium 4.4 mmol/L (3.5-5.1)
[2017-03-09] MEDS: METOPROLOL SUCCINATE (ER) 25 MG TAB.ER.24H PO SCH ×2 (13:09→20:19)
[2017-03-09] MEDS: LEVOTHYROXINE 50 MCG TAB PO SCH (13:09)
[2017-03-09] MEDS: FAMOTIDINE 20 MG TAB PO SCH (13:10)
[2017-03-09] MEDS: CLOPIDOGREL 75 MG TAB PO SCH (13:10)
--- NOTE | 2017-03-09 16:28 | US ---
EXAMINATION TYPE: US kidneys/renal and bladder DATE OF EXAM: 03/09/2017 COMPARISON: CLINICAL HISTORY: BONIFACIO. bladder infection EXAM MEASUREMENTS: Right Kidney: 8.4 x 4.2 x 4.6 cm Left Kidney: 9.3 x 4.1 x 4.6 cm Right Kidney: wnl Left Kidney: wnl Bladder: distended, wnl as visualized Bilateral Jets not seen There is no evidence for hydronephrosis at this point in time. No nephrolithiasis is seen. No dameon s are identified. The urinary bladder is anechoic. IMPRESSION: No significant abnormality seen.
--- NOTE | 2017-03-09 18:03 | P.HPIM ---
History of Present Illness H&P Date: 03/09/17 Chief Complaint: acute kidney injury. This is an 81-year-old female one of Dr. Kirkpatrick with a previous medical history significant for hypertension and hypertensive cardiovascular disease, atrial flutter/fibrillation status post permanent pacemaker placement on xarelto, history of previous CVA, CAD status post microinfarction in the past , PVD status post stents by Dr. Cotton in both lower extremities last one was about 09/03/2015, patient received a call from Dr. Tompkins's office stating of the patient did go to the emergency department because of abnormal labs she was found to have a BUN of 85 and creatinine is 2.5 patient baseline creatinine 0.95 , patient stated that she was started recently on Dyazide along with Lasix that was about a month ago and the patient has been drinking enough water, patient was not complaining of any cramps in the legs however she was admitted to the hospital because of acute kidney injury due to acute tubular necrosis, she had a computed tomography scan of the abdomen and pelvis yesterday that did not show any evidence of acute of normalities. There is no evidence of any hydronephrosis or hydroureter. Review of Systems Constitutional: Denies anorexia, Denies chronic headaches, Denies chronic pain, Denies fever, Denies lethargy, Denies weakness, Denies weight gain, Denies weight loss Eyes: denies blurred vision, denies bulging eye, denies decreased vision, denies diplopia Ears: deny: decreased hearing Ears, nose, mouth and throat: Denies dysphagia, Denies neck lump, Denies swelling in throat, Denies sore throat Cardiovascular: Reports high blood pressure, Reports irregular heart beat, Reports shortness of breath, Denies chest pain, Denies decreased exercise tolerance, Denies dyspnea on exertion, Denies rapid heart beat, Denies syncope Respiratory: Reports dyspnea, Denies congestion, Denies cough, Denies cough with sputum, Denies sleep apnea, Denies snoring, Denies wheezing Gastrointestinal: Denies abdominal pain, Denies bloating, Denies BRBPR, Denies heartburn, Denies melena, Denies nausea, Denies vomiting Genitourinary: Denies dysuria, Denies hematuria Menstruation: Reports postmenopausal Musculoskeletal: Denies myalgias Musculoskeletal: absent: ankle pain, ankle stiffness, ankle swelling, elbow pain , elbow stiffness, elbow swelling, foot pain, foot stiffness, foot swelling, hand pain, hand stiffness, hand swelling, hip pain, hip stiffness, hip swelling , knee pain, knee stiffness, knee swelling, shoulder pain, shoulder stiffness, shoulder swelling, wrist pain, wrist stiffness, wrist swelling Integumentary: Denies pruritus, Denies rash Neurological: Denies numbness, Denies weakness Psychiatric: Denies anxiety, Denies depression Endocrine: Denies fatigue, Denies weight change Past Medical History Past Medical History: Atrial Fibrillation, Atrial Flutter, Coronary Artery Disease (CAD), Cancer, Heart Failure, COPD, CVA/TIA, Hyperlipidemia, Hypertension, Liver Disease, Vascular Disorder Additional Past Medical History / Comment(s): hx Kidney Stones, Chronic left leg numbness, degenerative arthritis, hx hepatitis C, hx cervical cancer, PVD Last Myocardial Infarction Date:: 2009 History of Any Multi-Drug Resistant Organisms: None Reported Past Surgical History: Appendectomy, Cholecystectomy, Heart Catheterization With Stent, Hysterectomy, Joint Replacement, Pacemaker Additional Past Surgical History / Comment(s): 2--17 abd. aortogram, ERCP, 4 cardiac stents, left hip replacement, Past Anesthesia/Blood Transfusion Reactions: Family History of Problems w/ Anesthesia Additional Past Anesthesia/Blood Transfusion Reaction / Comment(s): sister-long time to come out Date of Last Stent Placement:: unknown Type of Cardiac Device: Permanent Pacemaker Device Placement Date:: 2014 Past Psychological History: No Psychological Hx Reported Smoking Status: Former smoker Past Alcohol Use History: Rare Additional Past Alcohol Use History / Comment(s): quit smoking November 2015. SMOKED >35 YEARS 1PPD. Past Drug Use History: None Reported - Past Family History Son(s) Family Medical History: Cancer (patient has 3 sons one of them was diagnosed with bladder cancer.) Father Family Medical History: COPD (father at age of 89 from COPD/emphysema.) Additional Family Medical History / Comment(s): EMPHYSEMA Mother Family Medical History: Chest Pain / Angina, Myocardial Infarction ([place]) (mother at age of 91 from myocardial infarction) Brother(s) Family Medical History: Cancer (patient had 2 brothers one of them was diagnosed with esophageal cancer with metastatic disease) Daughter(s) Family Medical History: Cancer (patient has 3 daughters one of them was diagnosed with leukemia.) Medications and Allergies Home Medications Medication Instructions Recorded Confirmed Type Levothyroxine Sodium [Synthroid] 50 mcg PO DAILY 11/07/14 03/08/17 History Lisinopril [Zestril] 5 mg PO HS 11/07/14 03/08/17 History Metoprolol Succinate (ER) [Toprol 25 mg PO BID 11/07/14 03/08/17 History XL] Famotidine [Pepcid] 20 mg PO DAILY 07/06/16 03/08/17 History Furosemide [Lasix] 60 mg PO DAILY 07/06/16 03/08/17 History Clopidogrel [Plavix] 75 mg PO DAILY #90 tab 09/11/16 03/08/17 Rx Rosuvastatin [Crestor] 20 mg PO HS 10/09/16 03/08/17 History Triamterene-Hctz 37.5-25Mg 1 cap PO DAILY 03/08/17 03/08/17 History [Dyazide 37.5-25 Capsule] Rivaroxaban [Xarelto] 20 mg PO HS 03/09/17 03/09/17 History Allergies Allergy/AdvReac Type Severity Reaction Status Date / Time hydromorphone [From Dilaudid] AdvReac Nausea & Verified 03/08/17 20:03 Vomiting lorazepam [From Ativan] AdvReac Hallucinati Verified 03/08/17 20:03 ons Physical Exam Vitals: Vital Signs Temp Pulse Pulse Resp BP BP Pulse Ox 03/09/17 10:59 78 14 03/09/17 07:00 98.0 F 78 14 102/54 98 03/09/17 03:53 97.0 F L 79 16 101/66 100 03/08/17 23:51 98.0 F 91 18 119/69 96 03/08/17 22:45 82 16 119/62 96 03/08/17 21:40 97.9 F 80 18 132/68 99 03/08/17 20:22 81 17 107/63 100 03/08/17 19:23 92 127/61 98 03/08/17 18:21 97.6 F 55 L 17 115/71 98 Intake and Output 03/08/17 03/09/17 03/09/17 22:59 06:59 14:59 Intake Total 1000 Balance 1000 Intake: Amount of Fluid Infused ( 1000 ml) Other: Voiding Method Toilet Toilet # Voids 3 1 # Bowel Movements 2 Weight 72.575 kg 70.5 kg - Constitutional General appearance: average body habitus, no acute distress - EENT Eyes: anicteric sclerae, EOMI, PERRLA, no ptosis, no scleral icterus, normal appearance ENT: hearing grossly normal, NA/AT, normal oropharynx, no thrush Ears: bilateral: normal - Neck Neck: no lymphadenopathy, normal ROM, no rigidity, no stridor, no thyromegaly Carotids: bilateral: upstroke normal Thyroid: bilateral: normal size - Respiratory Respiratory: bilateral: diminished, negative: dullness, rales, rhonchi, wheezing , prolonged expiration, prolonged inspiration - Cardiovascular Rhythm: irregularly irregular (permanent pacemaker.) Heart sounds: normal: S1, S2 Abnormal Heart Sounds: systolic murmur, no rub, no click - Gastrointestinal General gastrointestinal: normal bowel sounds, soft, no splenomegaly, no tenderness, no umbilical hernia, no ventral hernia - Integumentary Integumentary: normal, normal turgor - Neurologic Neurologic: CNII-XII intact - Musculoskeletal Musculoskeletal: gait normal, strength equal bilaterally - Psychiatric Psychiatric: A&O x's 3, appropriate affect, intact judgment & insight Results CBC & Chem 7: 03/09/17 07:44 03/09/17 07:44 Labs: Abnormal Lab Results - Last 24 Hours (Table) 03/08/17 03/08/17 03/09/17 Range/Units 19:30 19:30 07:44 Potassium 5.5 H (3.5-5.1) mmol/L Chloride 110 H (98-107) mmol/L Carbon Dioxide 19 L (22-30) mmol/L BUN 85 H* 65 H (7-17) mg/dL Creatinine 2.80 H 1.93 H (0.52-1.04) mg/dL Glucose 109 H (74-99) mg/dL Calcium 10.6 H (8.4-10.2) mg/dL Urine Appearance Cloudy H (Clear) Urine Blood Trace H (Negative) Ur Leukocyte Esterase Large H (Negative) Urine WBC >182 H (0-5) /hpf Urine WBC Clumps Few H (None) /hpf Urine Bacteria Moderate H (None) /hpf Urine Mucus Rare H (None) /hpf Microbiology - Last 24 Hours (Table) 03/08/17 19:30 Urine Culture - Preliminary Urine,Voided Thrombosis Risk Factor Assmnt - DVT/VTE Prophylaxis DVT/VTE Prophylaxis: Pharmacologic Prophylaxis ordered, Mechanical Prophylaxis ordered - Choose All That Apply Any of the Below Risk Factors Present?: Yes Each Factor Represents 1 point: Obesity (BMI >25) Other Risk Factors: Yes Each Risk Factor Represents 3 Points: Age 75 years or older Thrombosis Risk Factor Assessment Total Risk Factor Score: 4 Thrombosis Risk Factor Assessment Level: Moderate Risk Assessment and Plan Plan: Assessment and plan: 1. Acute kidney injury due to acute tubular necrosis with aggressive diuresis. Discontinue Lasix, discontinue Dyazide, start the patient on half-normal saline at 100 mL an hour, monitor the patient input and output and daily weight , monitor the patient CMP magnesium and the next 24 hours, computed tomography scan of the abdomen and pelvis did not show any evidence of acute hydronephrosis or hydroureter. 2. History of CAD . Continue metoprolol 25 mg orally twice every day. 3. Hypertension and hypertensive cardiovascular disease. Discontinue lisinopril 5 mg orally once every day, amlodipine 10 mg orally once every day. Continue metoprolol 25 mg orally twice every day. 4. Hypothyroidism. Continue Synthroid 50 g orally once every day. 5. PAD post PTBI with stent placement of both lower extremities. Stable. 6. Atrial fibrillation post-permanent pacemaker placement. Continue metoprolol 25 mg orally twice every day as well as Xarelto 15 mg orally once every day. 7. DVT prophylaxis. Continue with the Xarelto. 8. Prophylaxis. Continue patient on Pepcid 20 mg orally once every day. 9. Full code. 10. Admitted to inpatient. Estimate a length of stay 2 midnights.
[2017-03-09] MEDS ORDERED: RIVAROXABAN 15 MG TAB PO SCH (18:30)
[2017-03-09] MEDS: SODIUM CHLORIDE 0.45% 1,000 ML IV SCH (18:56)
[2017-03-09] MEDS: ATORVASTATIN 40 MG TAB PO SCH (20:20)
[2017-03-09] MEDS: RIVAROXABAN 15 MG TAB PO SCH (20:21)
[2017-03-09] MEDS ORDERED: NON-FORMULARY DRUG (Rivaroxaban [Xarelto] 20 MG) PO SCH (21:00)
[2017-03-10] MEDS: LEVOTHYROXINE 50 MCG TAB PO SCH (05:53)
[2017-03-10] MEDS: SODIUM CHLORIDE 0.45% 1,000 ML IV SCH (08:07)
[2017-03-10] MEDS: FAMOTIDINE 20 MG TAB PO SCH (08:08)
[2017-03-10] MEDS: CLOPIDOGREL 75 MG TAB PO SCH (08:08)
[2017-03-10] MEDS: METOPROLOL SUCCINATE (ER) 25 MG TAB.ER.24H PO SCH ×2 (08:08→21:55)
[2017-03-10 08:57] LABS: Calcium 9.1 mg/dL (8.4-10.2)
[2017-03-10] MEDS: AMMONIUM LACTATE 12% LOTION 225 GM BTL TOPICAL SCH ×2 (12:24→21:54)
[2017-03-10] MEDS: DEXTROSE 5%-0.45% NACL 1,000 ML IV SCH ×2 (12:24→23:45)
[2017-03-10] MEDS ORDERED: MAGNESIUM HYDROXIDE 2,400 MG/10 ML CUP PO PRN (12:26)
--- NOTE | 2017-03-10 12:57 | CDI ---
In responding to this query, please exercise your independent professional judgment. The [facility] Coding Staff and Clinical Documentation Specialists appreciate your assistance in clarifying documentation, maintaining compliance with coding guidelines, accurately documenting patients condition and capturing severity of illness. The fact that a question is asked does not imply that any particular answer is desired or expected. Communication forms are a method of clarifying documentation and are not made part of the Legal Health Record. Thank you in advance for your clarification. Last Revision, March 2015 Bertha Mendez [address] [facility] [place] [address] Documentation Clarification Form Date: 03/10/2017 12:49:00 PM From: Jennifer Houston RN, CCDS Admit Date: 03/08/2017 10:26:00 PM Patient Name: Rohini Hansen Visit Number: [id number] Dr. Phillip Ponce/Bette Copeland CNP Atrial fibrillation is documented in the H&P. History/Risk Factors: A-Fib Flutter, CAD< CHF, COPD< CVA?TIA, hyperlipidemia, HTN, liver disease, vascular disorder Clinical Indicators: 03/09 H&P: "Atrial Fib s/p PPM placement." EKG/telemetry: not done Treatment: Consults: Nephro Toprol XL PO BID Xarelto 15mg PO Q HS In your professional opinion, can you please clarify the type of atrial fibrillation, if known? Chronic/Permanent Paroxysmal Persistent Other, please specify Unable to determine Please document in your progress notes and discharge summary in order to capture severity of illness and risk of mortality. Include clinical findings that support your diagnosis. FYI: Press F11 to launch patient chart PAF DANISHD
--- NOTE | 2017-03-10 13:03 | P.PN ---
Subjective Progress Note Date: 03/10/17 This is an 81-year-old female one of Dr. Kirkpatrick with a previous medical history significant for hypertension and hypertensive cardiovascular disease, atrial flutter/fibrillation status post permanent pacemaker placement on xarelto, history of previous CVA, CAD status post microinfarction in the past , PVD status post stents by Dr. Cotton in both lower extremities last one was about 09/03/2015, patient received a call from Dr. Tompkins's office stating of the patient did go to the emergency department because of abnormal labs she was found to have a BUN of 85 and creatinine is 2.5 patient baseline creatinine 0.95 , patient stated that she was started recently on Dyazide along with Lasix that was about a month ago and the patient has been drinking enough water, patient was not complaining of any cramps in the legs however she was admitted to the hospital because of acute kidney injury due to acute tubular necrosis, she had a computed tomography scan of the abdomen and pelvis yesterday that did not show any evidence of acute of normalities. There is no evidence of any hydronephrosis or hydroureter. 03/10: Kidney function is much improved today with a BUN of 39 and creatinine 1.46. She was changed to half-normal saline last night. Today we'll change her to D5 half-normal saline at 75 mL per hour. She states she is eating okay. PT and OT are in process. Milk of magnesia added. Anticipate discharge home tomorrow. Objective - Vital Signs Vital signs: Vital Signs Temp 97.0 F L 03/10/17 07:00 Pulse 64 03/10/17 07:00 Resp 16 03/10/17 07:00 BP 109/56 03/10/17 07:00 Pulse Ox 99 03/10/17 07:00 Intake & Output 03/09/17 03/10/17 03/10/17 18:59 06:59 18:59 Weight 77.8 kg Other: Voiding Method Toilet Toilet # Voids 4 3 # Bowel Movements 1 - Exam General appearance: average body habitus, no acute distress - EENT Eyes: anicteric sclerae, EOMI, PERRLA, no ptosis, no scleral icterus, normal appearance ENT: hearing grossly normal, NA/AT, normal oropharynx, no thrush Ears: bilateral: normal - Neck Neck: no lymphadenopathy, normal ROM, no rigidity, no stridor, no thyromegaly Carotids: bilateral: upstroke normal Thyroid: bilateral: normal size - Respiratory Respiratory: bilateral: diminished, negative: dullness, rales, rhonchi, wheezing , prolonged expiration, prolonged inspiration - Cardiovascular Rhythm: irregularly irregular (permanent pacemaker.) Heart sounds: normal: S1, S2 Abnormal Heart Sounds: systolic murmur, no rub, no click - Gastrointestinal General gastrointestinal: normal bowel sounds, soft, no splenomegaly, no tenderness, no umbilical hernia, no ventral hernia - Integumentary Integumentary: normal, normal turgor - Neurologic Neurologic: CNII-XII intact - Musculoskeletal Musculoskeletal: gait normal, strength equal bilaterally - Psychiatric Psychiatric: A&O x's 3, appropriate affect, intact judgment & insight - Labs CBC & Chem 7: 03/09/17 07:44 03/10/17 07:41 Labs: Abnormal Lab Results - Last 24 Hours (Table) 03/10/17 Range/Units 07:41 Chloride 113 H (98-107) mmol/L Carbon Dioxide 19 L (22-30) mmol/L BUN 39 H (7-17) mg/dL Creatinine 1.46 H (0.52-1.04) mg/dL Microbiology - Last 24 Hours (Table) 03/08/17 19:30 Urine Culture - Preliminary Urine,Voided Gram Neg Bacilli Assessment and Plan Plan: 1. Acute kidney injury due to acute tubular necrosis with aggressive diuresis. Discontinue Lasix, discontinue Dyazide, start the patient on half-normal saline at 100 mL an hour, monitor the patient input and output and daily weight , monitor the patient CMP magnesium and the next 24 hours, computed tomography scan of the abdomen and pelvis did not show any evidence of acute hydronephrosis or hydroureter. 2. History of CAD . Continue metoprolol 25 mg orally twice every day. 3. Hypertension and hypertensive cardiovascular disease. Discontinue lisinopril 5 mg orally once every day, amlodipine 10 mg orally once every day. Continue metoprolol 25 mg orally twice every day. 4. Hypothyroidism. Continue Synthroid 50 g orally once every day. 5. PAD post PTBI with stent placement of both lower extremities. Stable. 6. Atrial fibrillation , chronic, post-permanent pacemaker placement. Continue metoprolol 25 mg orally twice every day as well as Xarelto 15 mg orally once every day. 7. DVT prophylaxis. Continue with the Xarelto. 8. Prophylaxis. Continue patient on Pepcid 20 mg orally once every day. 9. Full code. Discharge plan: PT consult in place. Impression and plan of care have been directed as dictated by the signing physician. Bette Copeland nurse practitioner acting as scribe for signing physician.
--- NOTE | 2017-03-10 14:47 | CONS ---
CONSULTATION REASON FOR CONSULT: Renal failure. DATE OF CONSULTATION: 03/10/2017. HISTORY OF PRESENT ILLNESS: The patient is a 81-year-old female who was admitted to the hospital on 03/08/2017 with the complaints of abnormal blood work which was done as outpatient and patient was advised admission. The patient denies any prior history of kidney diseases. Her serum creatinine was 2.8 mg/dL at the time of admission, and potassium was 5.5. The patient denies use of any nonsteroidal anti-inflammatory agents. Her blood pressure has been running low with systolic in the 90s at the time of admission. Currently, patient is maintained on IV fluids. At home she was on Zestril, which is currently on hold. Serum creatinine is now down to 1.46 mg/dL. PAST MEDICAL HISTORY: Hypertension, coronary artery disease, COPD, CVA/TIA, hyperlipidemia, valvular heart disease, atrial fibrillation, A. fib/atrial flutter, history of hepatitis C, kidney stones, cervical cancer, peripheral vascular disease. PAST SURGICAL HISTORY: Appendectomy, cholecystectomy, cardiac catheterization with coronary stent placement, pacemaker, hysterectomy, four coronary stents, ERCP, left hip arthroplasty. SOCIAL HISTORY: Negative for smoking, drug abuse or alcohol abuse. MEDICATIONS: Medications at home prior to admission included: 1. Dyazide. 2. Xarelto. 3. Crestor. 4. Plavix. 5. Lasix. 6. Pepcid. 7. Metoprolol. 8. Zestril. 9. Synthroid. ALLERGIES: INCLUDE DILAUDID, ATIVAN. REVIEW OF SYSTEMS: As per HPI. Other systems negative. PHYSICAL EXAMINATION: Patient is comfortable, awake, not in any acute distress. She is alert and oriented x3. Blood pressure is 109/56, heart rate 64 per minute. She is afebrile. Examination of the heart S1, S2. Examination lungs bilateral breath sounds are heard. Abdomen is soft, nontender. Exam of the lower extremity shows no evidence of edema. 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 Patient moving all 4 extremities. LAB: Show sodium 140, potassium 5.0, chloride 113, BUN 39, serum creatinine 1.46. Hemoglobin was 12.6. UA shows trace blood, no protein, WBCs more than 182. Urine culture is growing gram-negative bacilli. ASSESSMENT: 1. Acute kidney injury, prerenal, associated with hypotension, hypoperfusion as well as urinary tract infection, currently improving. Continue with IV fluids. Continue to hold off on MARY ANN inhibitors for now as the patient remains hypotensive. 2. Urinary tract infection with urine culture growing gram-negative bacilli. Maintained on Rocephin. 3. Dyslipidemia. 4. Hypertension. 5. History of coronary artery disease, status post coronary stents. 6. Atrial fibrillation with controlled ventricular response maintained on Xarelto. PLAN: Continue IV fluids. Continue antibiotics. Repeat labs in a.m. Repeat UA down the road as outpatient after treatment of urinary tract infection. Thank you for this consultation. We will continue to follow the patient with you during her hospitalization. MMODL / IJN: [id number] /
[2017-03-10] MEDS: ATORVASTATIN 40 MG TAB PO SCH (21:54)
[2017-03-10] MEDS: RIVAROXABAN 15 MG TAB PO SCH (21:55)
[2017-03-11] MEDS: LEVOTHYROXINE 50 MCG TAB PO SCH (05:18)
[2017-03-11 07:53] VITALS: BP 114/69; PULSE 71; RESP 16; TEMP 96.9
[2017-03-11 08:37] LABS: Calcium 9.4 mg/dL (8.4-10.2); Potassium 4.2 mmol/L (3.5-5.1)
[2017-03-11] MEDS: CLOPIDOGREL 75 MG TAB PO SCH (08:49)
[2017-03-11] MEDS: METOPROLOL SUCCINATE (ER) 25 MG TAB.ER.24H PO SCH (08:49)
[2017-03-11] MEDS: FAMOTIDINE 20 MG TAB PO SCH (08:50)
[2017-03-11] MEDS: AMMONIUM LACTATE 12% LOTION 225 GM BTL TOPICAL SCH (08:50)
--- NOTE | 2017-03-11 11:53 | P.PN ---
Subjective Patient is seen in follow-up for acute kidney injury. Creatinine was 2.8 on admission and potassium was 5.5. MARY ANN inhibitor is held and she is currently maintained on IV hydration with normal saline running at 75 mL an hour. Potassium is down to 4.2 and creatinine is down to 1.2. She is currently being treated for an E. coli UTI with IV Rocephin. Oral intake is good. Admits to good urine output. No vomiting or diarrhea. Denies chest pain or shortness of breath. Vital signs are stable. General: The patient appeared well nourished and normally developed. HEENT: Head exam is unremarkable. Neck is without jugular venous distension. LUNGS: Lungs are clear to auscultation and percussion. Breath sounds decreased. HEART: Rate and Rhythm are regular. First and second heart sounds normal. No murmurs, rubs or gallops. ABDOMEN: Abdominal exam reveals normal bowel sounds. Non-tender and non- distended. No evidence of peritonitis. EXTREMITITES: No clubbing, cyanosis, or edema. Objective - Vital Signs Vital signs: Vital Signs Temp 96.9 F L 03/11/17 07:00 Pulse 71 03/11/17 07:00 Resp 16 03/11/17 07:00 BP 114/69 03/11/17 07:00 Pulse Ox 100 03/11/17 07:00 Intake & Output 03/10/17 03/11/17 03/11/17 18:59 06:59 18:59 Intake Total 600 300 Balance 600 300 Weight 72.5 kg Intake: IV 600 Dextrose 5%-0.45% NaCl 1, 600 000 ml @ 75 mls/hr IV . [id number] [facility] Rx#:[id number] Oral 300 Other: Voiding Method Toilet # Voids 1 2 - Labs CBC & Chem 7: 03/09/17 07:44 03/11/17 07:23 Labs: Abnormal Lab Results - Last 24 Hours (Table) 03/11/17 Range/Units 07:23 Chloride 113 H (98-107) mmol/L Carbon Dioxide 20 L (22-30) mmol/L BUN 21 H (7-17) mg/dL Creatinine 1.20 H (0.52-1.04) mg/dL Glucose 102 H (74-99) mg/dL Microbiology - Last 24 Hours (Table) 03/08/17 19:30 Urine Culture - Final Urine,Voided Escherichia coli Assessment and Plan Plan: Assessment: #1. Nonoliguric acute kidney injury mostly prerenal. Improved with stopping MARY ANN inhibitor and IV hydration. Creatinine was 2.8 on admission and is down to 1.2 today. #2. Hypotension with systolic blood pressure in the 90s. Improved with holding MARY ANN inhibitor. #3. E. coli UTI. #4. Hyperkalemia secondary to acute kidney injury and MARY ANN inhibitor use. Resolved. Plan: Encourage oral intake. I will decrease rate of fluids to 50 mL an hour. Continue antibiotics. Potential discharge today. She will need to follow-up as an outpatient in the next 2 weeks.
--- NOTE | 2017-03-11 12:28 | P.DS ---
Providers Date of admission: 03/08/17 22:26 Expected date of discharge: 03/11/17 Attending physician: Phillip Ponce Consults: 03/09/17 14:57 Consult Physician Routine Consulting Provider: Dorys Ivory Consult Reason/Comments: bebeto Do you want consulting provider notified?: Yes Primary care physician: Bertram [facility] Course: This is an 81-year-old female one of Dr. Kirkpatrick with a previous medical history significant for hypertension and hypertensive cardiovascular disease, atrial flutter/fibrillation status post permanent pacemaker placement on xarelto, history of previous CVA, CAD status post microinfarction in the past , PVD status post stents by Dr. Cotton in both lower extremities last one was about 09/03/2015, patient received a call from Dr. Tompkins's office stating of the patient did go to the emergency department because of abnormal labs she was found to have a BUN of 85 and creatinine is 2.5 patient baseline creatinine 0.95 , patient stated that she was started recently on Dyazide along with Lasix that was about a month ago and the patient has been drinking enough water, patient was not complaining of any cramps in the legs however she was admitted to the hospital because of acute kidney injury due to acute tubular necrosis, she had a computed tomography scan of the abdomen and pelvis yesterday that did not show any evidence of acute of normalities. There is no evidence of any hydronephrosis or hydroureter. 03/10: Kidney function is much improved today with a BUN of 39 and creatinine 1.46. She was changed to half-normal saline last night. Today we'll change her to D5 half-normal saline at 75 mL per hour. She states she is eating okay. PT and OT are in process. Milk of magnesia added. Anticipate discharge home tomorrow. 03/11: Patient has been followed by Dr. Velazquez from nephrology with recommendations for outpatient follow-up in 2 weeks. Today's lab work shows a BUN of 21 and creatinine of 1.2. Chloride is 113 and CO2 was 20. Urine culture is positive for E. coli, pansensitive. Patient has been ambulating well in her room and denies any need for home care. Patient will be discharged home today in stable condition. Discharge diagnoses: 1. Acute kidney injury due to acute tubular necrosis with aggressive diuresis. 2. History of CAD 3. Hypertension and hypertensive cardiovascular disease. 4. Hypothyroidism. 5. PAD post PTBI with stent placement of both lower extremities. Stable. 6. Atrial fibrillation , chronic, post-permanent pacemaker placement. Discharge plan: Return home Impression and plan of care have been directed as dictated by the signing physician. Bette Copeland nurse practitioner acting as scribe for signing physician. Cc: Dr. Bertram Kirkpatrick Patient Condition at Discharge: Good Plan - Discharge Summary New Discharge Prescriptions: New Ammonium Lactate Lotion [Lac-Hydrin 12% Lotion] 1 applic TOPICAL BID dose Cefuroxime [Ceftin] 250 mg PO BID #14 tablet Continue Metoprolol Succinate (ER) [Toprol XL] 25 mg PO BID Levothyroxine Sodium [Synthroid] 50 mcg PO DAILY Lisinopril [Zestril] 5 mg PO HS Clopidogrel [Plavix] 75 mg PO DAILY #90 tab Rosuvastatin [Crestor] 20 mg PO HS Rivaroxaban [Xarelto] 20 mg PO HS Famotidine [Pepcid] 20 mg PO DAILY #0 Changed Furosemide [Lasix] 20 mg PO DAILY #0 Discontinued Triamterene-Hctz 37.5-25Mg [Dyazide 37.5-25 Capsule] 1 cap PO DAILY Discharge Medication List Levothyroxine Sodium [Synthroid] 50 mcg PO DAILY 11/07/14 [History] Lisinopril [Zestril] 5 mg PO HS 11/07/14 [History] Metoprolol Succinate (ER) [Toprol XL] 25 mg PO BID 11/07/14 [History] Clopidogrel [Plavix] 75 mg PO DAILY #90 tab 09/11/16 [Rx] Rosuvastatin [Crestor] 20 mg PO HS 10/09/16 [History] Rivaroxaban [Xarelto] 20 mg PO HS 03/09/17 [History] Ammonium Lactate Lotion [Lac-Hydrin 12% Lotion] 1 applic TOPICAL BID dose 03/11 [Rx] Cefuroxime [Ceftin] 250 mg PO BID #14 tablet 03/11/17 [Rx] Famotidine [Pepcid] 20 mg PO DAILY #0 03/11/17 [Rx] Furosemide [Lasix] 20 mg PO DAILY #0 03/11/17 [Rx] Follow up Appointment(s)/Referral(s): Bertram Kirkpatrick MD [Primary Care Provider] - 03/17/17 1:30 pm Eugenio Velazquez DO [STAFF PHYSICIAN] - 2 Weeks Ambulatory/Diagnostic Orders: Basic Metabolic Panel [LAB.AMB] Location: Determined By Patient Patient Instructions/Handouts: Heart Failure (DC), Urinary Tract Infection in Women (DC) Activity/Diet/Wound Care/Special Instructions: Cardiac diet. Limited activity until follow up with , with fall precautions. Discharge Disposition: HOME SELF-CARE
[2017-03-11] MEDS: DEXTROSE 5%-0.45% NACL 1,000 ML IV SCH (14:40)
== END 2017-03-11 14:43 | disposition home or self-care (01) | DRG 683 ==
LOC: EC 17:58 → 4MS4W 22:26
PROVIDERS: ADMIT Internal Medicine; ATTEND Internal Medicine
DX: N17.0 Acute kidney failure with tubular necrosis (principal); N39.0 Urinary tract infection, site not specified; I95.9 Hypotension, unspecified; I11.0 Hypertensive heart disease with heart failure; I50.9 Heart failure, unspecified; E87.5 Hyperkalemia; I48.2 Chronic atrial fibrillation; J44.9 Chronic obstructive pulmonary disease, unspecified; I73.9 Peripheral vascular disease, unspecified; B96.20 Unspecified Escherichia coli [E. coli] as the cause of diseases classified elsewhere; E03.9 Hypothyroidism, unspecified; E78.5 Hyperlipidemia, unspecified; I25.10 Atherosclerotic heart disease of native coronary artery without angina pectoris; I25.2 Old myocardial infarction; K57.90 Diverticulosis of intestine, part unspecified, without perforation or abscess without bleeding; B19.20 Unspecified viral hepatitis C without hepatic coma; M19.90 Unspecified osteoarthritis, unspecified site; Z79.02 Long term (current) use of antithrombotics/antiplatelets; Z79.899 Other long term (current) drug therapy; Z87.440 Personal history of urinary (tract) infections; Z87.891 Personal history of nicotine dependence; Z95.0 Presence of cardiac pacemaker; Z95.5 Presence of coronary angioplasty implant and graft; Z96.642 Presence of left artificial hip joint; Z85.41 Personal history of malignant neoplasm of cervix uteri; Z88.5 Allergy status to narcotic agent; Z88.8 Allergy status to other drugs, medicaments and biological substances; Z82.49 Family history of ischemic heart disease and other diseases of the circulatory system
CPT/HCPCS: 36415; 74176; 76770; 80048; 80053; 80061; 81001; 84443; 85025; 85027; 87077; 87086; 87186; 87324; 96360; 96361; 99284

== ENCOUNTER → 2017-03-08 | Outpatient (CLI) | payer MEDICARE, MEDICAID ==
[2017-03-08 16:31] LABS: CH 30.5; CHCM 33.7; HDW 2.48; HGB 13.2 gm/dL (11.4-16.0); MCHC 32.9 g/dL (31.0-37.0); MCV 91.1 fL (80.0-100.0); Mean Platelet Volume 7.9; RBC 4.39 m/uL (3.80-5.40); RDW 14.9 % (11.5-15.5); WBC 6.5 k/uL (3.8-10.6)
[2017-03-08 16:44] LABS: Calcium 10.1 mg/dL (8.4-10.2); Potassium 4.8 mmol/L (3.5-5.1); Total Bilirubin 0.7 mg/dL (0.2-1.3); Total Protein 7.7 g/dL (6.3-8.2)
== END | disposition home or self-care (01) ==
LOC: LABWHC1 15:43
PROVIDERS: ATTEND Nurse Practitioner Adult Health
DX: E03.9 Hypothyroidism, unspecified (principal); E78.00 Pure hypercholesterolemia, unspecified; I10 Essential (primary) hypertension; R60.0 Localized edema
CPT/HCPCS: 36415; 80053; 80061; 84443; 85027

== ENCOUNTER → 2017-12-06 | Outpatient (CLI) | payer MEDICARE, MEDICAID | END | disposition home or self-care (01) | LOC: LABWHC1 16:04 | PROVIDERS: ATTEND Family Medicine | DX: Z13.88 Encounter for screening for disorder due to exposure to contaminants (principal) | CPT/HCPCS: 36415; 83655 ==

== ENCOUNTER → 2017-12-28 | Outpatient (CLI) | payer MEDICARE, MEDICAID ==
[2017-12-22 14:46] VITALS: BMI 27.4
[2017-12-28 11:42] VITALS: BP 135/70; PULSE 67; RESP 18; TEMP 98.2
--- NOTE | 2017-12-28 13:01 | P.PAINPG ---
Subjective Progress Note Date: 12/28/17 Principal diagnosis: Right hip and right leg pain as well as right back pain This a very pleasant 82-year-old woman who has a long-standing history of right hip pain and right back pain as well as weakness and pain down her right leg to her foot. She also reports weakness in her left leg. She has had previous left hip replacement. She also has a history of vascular disease and has had stents put into her iliac arteries bilaterally. She has a history of atrial fibrillation as well. She does take several toe and Plavix. She is been through physical therapy in the past however the last time would seem to be several years ago. She does not do any exercises on a regular basis. She denies bowel or bladder dysfunction. Objective - Vital Signs Vital signs: Vital Signs Temp 98.2 F 12/28/17 11:33 Pulse 67 12/28/17 11:33 Resp 18 12/28/17 11:33 BP 135/70 12/28/17 11:33 Pulse Ox - Exam General: The patient is alert and oriented. Patient is not sedated Patient answers all question appropriately. She demonstrates a forward leaning posture Cardiac: Heart is regular in rate and rhythm Respiratory: Clear to auscultation. No audible wheezes. Abdomen: Soft nontender nondistended. Lower extremities: Strength is normal bilaterally. Sensation is normal bilaterally. Reflexes are preserved and symmetric bilaterally. Straight leg raise is negative bilaterally. She is tender to palpation over her trochanteric bursa on the right side. Facet loading maneuvers are positive bilaterally. She is tender to palpation over the facet joints bilaterally. She is also tender to palpation over sacroiliac joints bilaterally. Neurologic: She demonstrates decreased sensation in the L4 and L5 dermatomes on the left side. Assessment and Plan (1) Spondylosis of lumbar joint Current Visit: Yes Status: Acute Code(s): M47.816 - SPONDYLOSIS W/O MYELOPATHY OR RADICULOPATHY, LUMBAR REGION SNOMED Code(s): 545610133 (2) Lumbar radiculopathy, chronic Narrative/Plan: Plan of Care 1. Medications: I had a long discussion with patient regarding her management. There are significant risks and benefits to many different treatment courses. The patient would need to discontinue her blood thinners for any sort of interventional procedure. I think this is a risky proposition at this time given her history of atrial fibrillation as well as stents. She has previously utilized [place] and found this to be very helpful in controlling her pain. I would recommend that we restart this medication discontinue her tramadol which she reports is not helpful. She did sign the [place] start talking form today. I have reviewed the patient's MAPS report and it reveals expected results. Patient has signed an opiate agreement as well as opiate consent for treatment in our clinic. They understand the risks and benefits of opiate medications. They are aware of the potential for addiction. 2. Interventions: Interventions are contraindicated secondary to her anticoagulations status. 3. Referrals: Patient will follow up with her orthopedist next week. I've asked that she send me a report concerning his findings. 4. Testing: I did not order an EMG or any imaging of her back as I am not considering any interventional treatment for her. If this changes I would recommend these 2 modalities to further elucidate the cause of her back pain. 5. Psychological: She denies significant depression or anxiety. I will not refer her to a psychologist today. Current Visit: Yes Status: Acute Code(s): M54.16 - RADICULOPATHY, LUMBAR REGION SNOMED Code(s): 060928276 (3) Myofascial pain syndrome Current Visit: Yes Status: Acute Code(s): M79.1 - MYALGIA SNOMED Code(s): 994701725 PQRS Measure Charge Sheet Measure #130: Documentation of Current Meds in Medical Chart: Patient's medications documented in chart Measure #226: Tobacco Use: Screen & Cessation Intervention: Pt not a tobacco user Measure #111: Pneumonia Vaccination: Pneumococcal vaccine NOT administered or previously given Measure #47: Advance Care Plan: Advance care planning discussed & documented, pt chose/unable to give Measure #412: Opioid Treatment Agreement: Documented signed opioid trtmnt agreemnt min once during opioid trtmnt Measure #408: Opioid Therapy Follow-up Evaluation: Patient had f/u eval minimum every 3 months during opioid therapy Measure #317: Preventitive Care & Scrn High Bld Press & F/U: Normal blood pressure, f/u not required Measure #128: Body Mass Index (BMI) Screening & Follow-up: BMI documented within normal parameters Measure #131: Pain Assessment & Follow-up: Pain positive & plan documented Measure #431: Unhealthy Alcohol Use Preventative Care & Scrn: Patient not identified as an unhealthy alcohol user PQRS Narrative: Smoking Status Current every day smoker Do You Want the Pneumonia No Vaccine AT THIS TIME? Blood Pressure 135/70 Pain Intensity [Right Hip] 8 Hx Alcohol Use (MH) Yes: rare Home Medications: Ambulatory Orders Levothyroxine Sodium [Synthroid] 50 mcg PO DAILY 11/07/14 Lisinopril [Zestril] 5 mg PO HS 11/07/14 Metoprolol Succinate (ER) [Toprol XL] 25 mg PO BID 11/07/14 Clopidogrel [Plavix] 75 mg PO DAILY #90 tab 09/11/16 Rosuvastatin [Crestor] 20 mg PO HS 10/09/16 Rivaroxaban [Xarelto] 20 mg PO HS 03/09/17 Ammonium Lactate Lotion [Lac-Hydrin 12% Lotion] 1 applic TOPICAL BID dose 03/11 Famotidine [Pepcid] 20 mg PO DAILY #0 03/11/17 Furosemide [Lasix] 20 mg PO DAILY #0 03/11/17 Potassium Chloride [K-Tab ER] 10 meq PO DAILY 12/22/17 Controlled Substance Measures - Controlled Substance Measures Is patient prescribed a controlled substance at discharge?: Yes When asked, does pt state using other controlled substances?: No If prescribed controlled substance>3 days was MAPS reviewed?: Yes If Rx opioid, was Start Talking consent form obtained?: Yes
== END | disposition home or self-care (01) ==
LOC: PNWHC3 11:28
PROVIDERS: ATTEND Pain Medicine Pain Medicine
DX: M47.26 Other spondylosis with radiculopathy, lumbar region (principal); M79.1 Myalgia; F17.200 Nicotine dependence, unspecified, uncomplicated; Z79.899 Other long term (current) drug therapy; Z79.02 Long term (current) use of antithrombotics/antiplatelets; Z79.01 Long term (current) use of anticoagulants
CPT/HCPCS: 99211

== ENCOUNTER 2018-01-09 20:04 | Inpatient (IN) | payer MEDICARE, MEDICAID ==
[2018-01-09] MEDS ORDERED: MORPHINE SULFATE 2 MG/ML SYRINGE IVP STA (20:44)
[2018-01-09] MEDS ORDERED: SODIUM CHLORIDE 0.9% 500 ML IV STA (20:44)
[2018-01-09] MEDS ORDERED: ONDANSETRON 4 MG/2 ML VIAL IVP STA (20:44)
[2018-01-09 21:10] LABS: Albumin 4.2 g/dL (3.5-5.0); Calcium 10.4 mg/dL (8.4-10.2); Creatine Kinase 106 U/L (30-135); Potassium 3.3 mmol/L (3.5-5.1); Total Bilirubin 1.5 mg/dL (0.2-1.3); Total Protein 7.4 g/dL (6.3-8.2)
--- NOTE | 2018-01-09 21:21 | ED ---
General Adult HPI - General Source: patient, EMS Mode of arrival: EMS Limitations: no limitations <Bre Prado - Last Filed: 01/10/18 00:53> <Kate Jimenez - Last Filed: 01/21/18 08:10> - General Chief complaint: Nausea/Vomiting/Diarrhea Stated complaint: Nausea,vomiting Time Seen by Provider: 01/09/18 20:21 - History of Present Illness Initial comments: 82-year-old female patient presents to the emergency department today for evaluation of abdominal pain and vomiting. Patient states that she is having lower abdominal pain that is severe. Patient feels like she needs to have a bowel movement but cannot. Patient states she has vomited several times. States her symptoms started after eating today. She denies any fevers or chills. Denies any diarrhea, hematochezia, or melena. Denies any difficulty with urination. Patient denies any recent rash, shortness breath, chest pain, numbness, tingling, dizziness, weakness, hematuria, dysuria, urinary urgency, urinary frequency, headache, visual changes, or any other complaints. (Bre Prado) - Related Data Home Medications Medication Instructions Recorded Confirmed Levothyroxine Sodium [Synthroid] 50 mcg PO DAILY 11/07/14 01/10/18 Rosuvastatin [Crestor] 20 mg PO HS 10/09/16 01/10/18 Previous Rx's Medication Instructions Recorded Famotidine [Pepcid] 20 mg PO DAILY #0 03/11/17 Furosemide [Lasix] 40 mg PO DAILY tab 01/17/18 Levofloxacin [Levaquin] 500 mg PO DAILY #3 tab 01/17/18 Metoprolol Succinate (ER) [Toprol 50 mg PO TID tab.er.24h 01/17/18 XL] Nystatin 100,000 Unit/ml Susp 500,000 unit PO QID cup 01/17/18 [Mycostatin Oral Susp] Potassium Chloride ER [K-Dur 20] 20 meq PO DAILY tab.er.prt 01/17/18 Rivaroxaban [Xarelto] 15 mg PO W/SUPPER tab 01/17/18 metroNIDAZOLE [Flagyl] 500 mg PO TID #9 tab 01/17/18 traMADol HCL [Ultram] 50 mg PO Q12H PRN #6 tablet 01/17/18 Allergies Allergy/AdvReac Type Severity Reaction Status Date / Time hydromorphone [From Dilaudid] AdvReac Nausea & Verified 01/10/18 09:49 Vomiting lorazepam [From Ativan] AdvReac Hallucinati Verified 01/10/18 09:49 ons Review of Systems ROS Other: All systems not noted in ROS Statement are negative. <Bre Prado M - Last Filed: 01/10/18 00:53> ROS Other: All systems not noted in ROS Statement are negative. <Kate Jimenez P - Last Filed: 01/21/18 08:10> ROS Statement: Those systems with pertinent positive or pertinent negative responses have been documented in the HPI. Past Medical History Past Medical History: Atrial Fibrillation, Atrial Flutter, Coronary Artery Disease (CAD), Cancer, Heart Failure, COPD, CVA/TIA, Hyperlipidemia, Hypertension, Liver Disease, Thyroid Disorder, Vascular Disorder Additional Past Medical History / Comment(s): hx Kidney Stones, Chronic N/T BILAT LEGS, WITH BLE EDEMA, degenerative arthritis, hx hepatitis C, hx cervical cancer, PVD Last Myocardial Infarction Date:: 2009 History of Any Multi-Drug Resistant Organisms: None Reported Past Surgical History: Appendectomy, Cholecystectomy, Heart Catheterization With Stent, Hysterectomy, Joint Replacement, Pacemaker Additional Past Surgical History / Comment(s): 2-6-17 abd. aortogram, ERCP, 4 cardiac stents, left hip replacement, Past Anesthesia/Blood Transfusion Reactions: Family History of Problems w/ Anesthesia Additional Past Anesthesia/Blood Transfusion Reaction / Comment(s): sister-long time to come out Date of Last Stent Placement:: unknown Type of Cardiac Device: Permanent Pacemaker Device Placement Date:: 2014 Past Psychological History: No Psychological Hx Reported Smoking Status: Current every day smoker Past Alcohol Use History: Rare Past Drug Use History: None Reported - Past Family History Son(s) Family Medical History: Cancer Father Family Medical History: COPD (father at age of 89 from COPD/emphysema.) Additional Family Medical History / Comment(s): EMPHYSEMA Mother Family Medical History: Chest Pain / Angina, Myocardial Infarction ([place]) (mother at age of 91 from myocardial infarction) Brother(s) Family Medical History: Cancer Daughter(s) Family Medical History: Cancer (patient has 3 daughters one of them was diagnosed with leukemia.) <EveBre - Last Filed: 01/10/18 00:53> General Exam Limitations: no limitations General appearance: alert, in no apparent distress, other (Physical well- developed, well-nourished elderly female patient in mild distress related to pain. Vital signs upon presentation are temperature 98.0F, pulse 75, respirations 18, blood pressure 113/69, pulse ox 95% on room air.) Eye exam: Present: normal appearance, PERRL, EOMI. Absent: scleral icterus, conjunctival injection, periorbital swelling ENT exam: Present: normal exam, normal oropharynx, mucous membranes moist Neck exam: Present: normal inspection. Absent: tenderness, meningismus, lymphadenopathy Respiratory exam: Present: normal lung sounds bilaterally. Absent: respiratory distress, wheezes, rales, rhonchi, stridor Cardiovascular Exam: Present: regular rate, normal rhythm, normal heart sounds. Absent: systolic murmur, diastolic murmur, rubs, gallop, clicks GI/Abdominal exam: Present: soft, tenderness (Lower abdominal tenderness), normal bowel sounds. Absent: distended, guarding, rebound, rigid Neurological exam: Present: alert, CN II-XII intact, other (Patient seems out of it, not able to give a lot of information. ). Absent: oriented X3 ( Oriented 2) Psychiatric exam: Present: normal affect, normal mood Skin exam: Present: warm, intact, normal color, diaphoretic. Absent: dry, rash <EveDelonBre - Last Filed: 01/10/18 00:53> Vital Signs 01/09/18 01/09/18 01/10/18 20:09 22:52 01:15 Temperature 98.0 F Pulse Rate 75 79 75 Respiratory 18 20 20 Rate Blood Pressure 113/69 169/86 127/62 O2 Sat by Pulse 95 92 L 92 L Oximetry EKG Findings - EKG Comments: EKG Findings:: EKG obtained at 2013 shows sinus rhythm with premature PVCs. Ventricular rate is 81, UT interval 168, QRS duration 88, QTC 418, QTC 485. EKG obtained at 2042 shows sinus rhythm with a marked sinus arrhythmia with PVCs. Ventricular rate is 78, UT interval 184, QRS duration 92, QT 426, QTC 485. <Bre Prado Regulo - Last Filed: 01/10/18 00:53> Medical Decision Making - Lab Data Result diagrams: 01/09/18 20:15 01/09/18 20:15 - Radiology Data Radiology results: report reviewed, image reviewed <Bre Prado - Last Filed: 01/10/18 00:53> - Lab Data Result diagrams: 01/17/18 06:01 01/17/18 06:01 <Kate Jimenez - Last Filed: 01/21/18 08:10> - Medical Decision Making 82-year-old male patient presented to the emergency department today for complaints of abdominal pain and vomiting. Physical examination upon arrival patient was diaphoretic and pale. Abdomen was mildly tender over the entirety of the abdomen but more so over the lower abdomen. Patient is afebrile. Labs reviewed and did reveal elevated white blood cell count elevated lactic acid at 2.9. Mildly elevated bilirubin. CT of the abdomen and pelvis was obtained without contrast due to renal function, did show evidence of ileus and colitis with fat stranding. Patient was given doses of Zofran and Reglan here in the department. Patient is still experiencing pain and nausea. We'll keep her in the hospital for IV antibiotics and symptom management. She'll be admitted to Dr. Díaz. Patient and family are aware of the plan and agree. (Bre Prado) I personally saw and examined the patient. I reviewed and agree with the mid- level provider findings including all diagnostic interpretations and treatment plans as written unless otherwise stated. I was present for paulson portions of any procedures performed. Discussed patient care with the admitting team agreed with plan for admission. (Kate Jimenez) - Lab Data Lab Results 01/09/18 01/09/18 01/09/18 Range/Units 20:15 20:15 20:15 WBC 14.5 H (3.8-10.6) k/uL RBC 5.74 H (3.80-5.40) m/uL Hgb 17.2 H (11.4-16.0) gm/dL Hct 52.8 H (34.0-46.0) % MCV 92.0 (80.0-100.0) fL MCH 30.0 (25.0-35.0) pg MCHC 32.6 (31.0-37.0) g/dL RDW 14.6 (11.5-15.5) % Plt Count 193 (150-450) k/uL Neutrophils % 55 % Lymphocytes % 40 % Monocytes % 3 % Eosinophils % 1 % Basophils % 1 % Neutrophils # 7.9 H (1.3-7.7) k/uL Lymphocytes # 5.7 H (1.0-4.8) k/uL Monocytes # 0.4 (0-1.0) k/uL Eosinophils # 0.1 (0-0.7) k/uL Basophils # 0.1 (0-0.2) k/uL Manual Slide Review Performed RBC Morphology Normal Sodium 140 (137-145) mmol/L Potassium 3.3 L (3.5-5.1) mmol/L Chloride 106 (98-107) mmol/L Carbon Dioxide 21 L (22-30) mmol/L Anion Gap 13 mmol/L BUN 20 H (7-17) mg/dL Creatinine 1.40 H (0.52-1.04) mg/dL Est GFR (CKD-EPI)AfAm 41 (>60 ml/min/1.73 sqM) Est GFR (CKD-EPI)NonAf 35 (>60 ml/min/1.73 sqM) Glucose 130 H (74-99) mg/dL Lactic Ac Sepsis Rflx Plasma Lactic Acid Tyler (0.7-2.0) mmol/L Calcium 10.4 H (8.4-10.2) mg/dL Total Bilirubin 1.5 H (0.2-1.3) mg/dL AST 40 H (14-36) U/L ALT 24 (9-52) U/L Alkaline Phosphatase 101 (38-126) U/L Total Creatine Kinase 106 (30-135) U/L CK-MB (CK-2) 1.4 (0.0-2.4) ng/mL CK-MB (CK-2) Rel Index 1.3 Troponin I <0.012 (0.000-0.034) ng/mL Total Protein 7.4 (6.3-8.2) g/dL Albumin 4.2 (3.5-5.0) g/dL Amylase 307 H* (30-110) U/L Lipase 133 (23-300) U/L Urine Color Urine Appearance (Clear) Urine pH (5.0-8.0) Ur Specific [place] (1.001-1.035) Urine Protein (Negative) Urine Glucose (UA) (Negative) Urine Ketones (Negative) Urine Blood (Negative) Urine Nitrite (Negative) Urine Bilirubin (Negative) Urine Urobilinogen (<2.0) mg/dL Ur Leukocyte Esterase (Negative) Urine RBC (0-5) /hpf Urine WBC (0-5) /hpf Ur Squamous Epith Cells (0-4) /hpf Amorphous Sediment (None) /hpf Urine Bacteria (None) /hpf Urine Mucus (None) /hpf 01/09/18 01/09/18 01/09/18 Range/Units 20:15 21:15 22:02 WBC (3.8-10.6) k/uL RBC (3.80-5.40) m/uL Hgb (11.4-16.0) gm/dL Hct (34.0-46.0) % MCV (80.0-100.0) fL MCH (25.0-35.0) pg MCHC (31.0-37.0) g/dL RDW (11.5-15.5) % Plt Count (150-450) k/uL Neutrophils % % Lymphocytes % % Monocytes % % Eosinophils % % Basophils % % Neutrophils # (1.3-7.7) k/uL Lymphocytes # (1.0-4.8) k/uL Monocytes # (0-1.0) k/uL Eosinophils # (0-0.7) k/uL Basophils # (0-0.2) k/uL Manual Slide Review RBC Morphology Sodium (137-145) mmol/L Potassium (3.5-5.1) mmol/L Chloride (98-107) mmol/L Carbon Dioxide (22-30) mmol/L Anion Gap mmol/L BUN (7-17) mg/dL Creatinine (0.52-1.04) mg/dL Est GFR (CKD-EPI)AfAm (>60 ml/min/1.73 sqM) Est GFR (CKD-EPI)NonAf (>60 ml/min/1.73 sqM) Glucose (74-99) mg/dL Lactic Ac Sepsis Rflx Y Plasma Lactic Acid Tyler 2.9 H* (0.7-2.0) mmol/L Calcium (8.4-10.2) mg/dL Total Bilirubin (0.2-1.3) mg/dL AST (14-36) U/L ALT (9-52) U/L Alkaline Phosphatase (38-126) U/L Total Creatine Kinase (30-135) U/L CK-MB (CK-2) (0.0-2.4) ng/mL CK-MB (CK-2) Rel Index Troponin I (0.000-0.034) ng/mL Total Protein (6.3-8.2) g/dL Albumin (3.5-5.0) g/dL Amylase (30-110) U/L Lipase (23-300) U/L Urine Color Yellow Urine Appearance Cloudy H (Clear) Urine pH 7.5 (5.0-8.0) Ur Specific [place] 1.006 (1.001-1.035) Urine Protein 1+ H (Negative) Urine Glucose (UA) Negative (Negative) Urine Ketones Negative (Negative) Urine Blood Trace H (Negative) Urine Nitrite Negative (Negative) Urine Bilirubin Negative (Negative) Urine Urobilinogen <2.0 (<2.0) mg/dL Ur Leukocyte Esterase Small H (Negative) Urine RBC 4 (0-5) /hpf Urine WBC 13 H (0-5) /hpf Ur Squamous Epith Cells 1 (0-4) /hpf Amorphous Sediment Rare H (None) /hpf Urine Bacteria Moderate H (None) /hpf Urine Mucus Rare H (None) /hpf - Radiology Data Two-view x-ray of the chest is obtained. Report was reviewed in its entirety. Impression by Dr. Herrera shows no acute cardiopulmonary process. CT of the abdomen and pelvis without contrast was obtained. Report was reviewed in its entirety. Impression by Dr. Puckett shows diffuse wall thickening of the left colon compared to old exam consistent with nonspecific colitis. Large bowel fluid levels consistent with ileus. No evidence of an abscess. Extensive colonic diverticulosis. (Bre Prado) Disposition Decision to Admit Reason: Admit from EC Decision Date: 01/10/18 Decision Time: 00:09 <Bre Prado - Last Filed: 01/10/18 00:53> <Kate Jimenez - Last Filed: 01/21/18 08:10> Clinical Impression: Colitis, Ileus, Sepsis Disposition: ADMITTED IP TO THIS HOSP Condition: Good
[2018-01-09 21:24] LABS: Creatine Kinase MB 1.4 ng/mL (0.0-2.4); Troponin I <0.012 ng/mL (0.000-0.034)
[2018-01-09 21:25] LABS: Basophils # (A) 0.1 k/uL (0-0.2); Basophils % (A) 1 %; Eosinophils # (A) 0.1 k/uL (0-0.7); Eosinophils % (A) 1 %; HCT 52.8 % (34.0-46.0); HGB 17.2 gm/dL (11.4-16.0); Lymphocytes % (A) 40 %; MCHC 32.6 g/dL (31.0-37.0); Mean Platelet Volume 7.2; Monocytes # (A) 0.4 k/uL (0-1.0); Monocytes % (A) 3 %; Neutrophils # (A) 7.9 k/uL (1.3-7.7); Neutrophils % (A) 55 %; Platelet Count 193 k/uL (150-450); RBC 5.74 m/uL (3.80-5.40); RDW 14.6 % (11.5-15.5); WBC 14.5 k/uL (3.8-10.6)
[2018-01-09 21:27] LABS: Lymphocytes # (A) 5.7 k/uL (1.0-4.8)
--- NOTE | 2018-01-09 21:32 | XR ---
EXAMINATION TYPE: XR chest 2V DATE OF EXAM: 01/09/2018 COMPARISON: 11/16/2014 HISTORY: Nausea, vomiting, and chest pain TECHNIQUE: Frontal and lateral views of the chest are obtained. FINDINGS: There is no focal air space opacity, pleural effusion, or pneumothorax seen. Multilead le ft-sided cardiac device is noted in addition to prominence of the cardiomediastinal silhouette, upper limits of normal. Low lung volumes accentuate the pulmonary vasculature. The cardiac silhouette size is within normal limits. There is generalized osseous demineralization. The osseous structures are intact. IMPRESSION: No acute cardiopulmonary process.
[2018-01-09] MEDS ORDERED: SODIUM CHLORIDE 0.9% 500 ML IV ONE (21:42)
[2018-01-09] MEDS ORDERED: diphenhydrAMINE 50 MG/ML 1 ML VIAL IVP STA ×2 (21:53→22:15)
[2018-01-09] MEDS ORDERED: METOCLOPRAMIDE 5 MG/ML 2 ML VIAL IVP STA (21:53)
--- NOTE | 2018-01-09 22:35 | CT ---
EXAMINATION TYPE: CT abdomen pelvis wo con DATE OF EXAM: 01/09/2018 COMPARISON: 03/08/2017 HISTORY: Nausea and vomiting CT DLP: 605.3 mGycm Automated exposure control for dose reduction was used. TECHNIQUE: Helical acquisition of images was performed from the lung bases through the pelvis. FINDINGS: There is minimal subsegmental atelectasis or scarring at the lung bases. There is no pleural effusion . Heart appears slightly enlarged. Liver shows no focal defect. Spleen appears normal. There is atherosclerotic vascular calcification i n the abdominal aorta and its branches. There is no evidence of pancreatic mass. Gallbladder is absen t. Bile ducts are not dilated. There is no adrenal mass. Kidneys show no hydronephrosis. There are a few retroperitoneal lymph nodes that measure up to 1 cm. There is wall thickening and fat stranding around the splenic flexure and descending colon. There is also wall thickening in the rectosigmoid colon. There are numerous diverticula in the left colon and sigmoid colon. There are large bowel fluid levels in the transverse colon. Bladder distends smoothly. There is left hip prosthesis. There is a 1 cm anterior subluxation of L4 in relation L5. There is no compression fracture. There is disc space narrowing in the lower lumbar spine. IMPRESSION: THERE IS NEW DIFFUSE WALL THICKENING OF THE LEFT COLON COMPARED TO OLD EXAM CONSISTENT WITH NONSPECIF IC COLITIS. LARGE BOWEL FLUID LEVELS CONSISTENT WITH ILEUS. NO EVIDENCE OF AN ABSCESS. EXTENSIVE COLO CINTIA DIVERTICULOSIS.
[2018-01-09 23:12] LABS: Amorphous Sediment,Urine Rare /hpf; Appearance,Urine Cloudy (Clear); Bacteria,Urine Moderate /hpf; Bilirubin,Urine Negative (Negative); Blood,Urine Trace (Negative); Color,Urine Yellow; Glucose,Urine (UA) Negative (Negative); Ketones,Urine Negative (Negative); Leukocyte Esterase,Urine Small (Negative); Mucus,Urine Rare /hpf; Nitrite,Urine Negative (Negative); PH, Urine 7.5 (5.0-8.0); Protein,Urine 1+ (Negative); RBC,Urine 4 /hpf (0-5); Specific Gravity,Urine 1.006 (1.001-1.035); Squamous Epithelial Cell,Urine 1 /hpf (0-4); Urobilinogen,Urine <2.0 mg/dL (<2.0); WBC,Urine 13 /hpf (0-5)
[2018-01-09] MEDS ORDERED: cefTRIAXone IN SWFI 1,000 MG/10 ML SYRINGE IVP STA (23:32)
[2018-01-09] MEDS ORDERED: metroNIDAZOLE-NS PMX 500 MG in SALINE 1 100ML.BAG IVPB STA (23:32)
[2018-01-10] MEDS ORDERED: NALOXONE 0.4 MG/ML 1 ML VIAL IV PRN (00:05)
[2018-01-10] MEDS ORDERED: SODIUM CHLORIDE 0.9% 1,000 ML IV ONE ×2 (01:11→21:27)
[2018-01-10] MEDS: SODIUM CHLORIDE 0.9% 1,000 ML IV SCH ×2 (04:13→13:51)
[2018-01-10 07:09] LABS: Basophils % (A) 0 %; Eosinophils % (A) 0 %; HCT 50.7 % (34.0-46.0); Lymphocytes % (A) 6 %; MCH 29.7 pg (25.0-35.0); MCHC 31.6 g/dL (31.0-37.0); Mean Platelet Volume 7.3; Monocytes # (A) 0.6 k/uL (0-1.0); Monocytes % (A) 4 %; Neutrophils # (A) 13.7 k/uL (1.3-7.7); Neutrophils % (A) 89 %; Platelet Count 182 k/uL (150-450); RBC 5.39 m/uL (3.80-5.40); RDW 14.4 % (11.5-15.5); WBC 15.4 k/uL (3.8-10.6)
[2018-01-10 07:25] LABS: Albumin 2.9 g/dL (3.5-5.0); Calcium 8.5 mg/dL (8.4-10.2); Potassium 3.5 mmol/L (3.5-5.1); Total Bilirubin 1.3 mg/dL (0.2-1.3); Total Protein 5.4 g/dL (6.3-8.2)
[2018-01-10] MEDS: metroNIDAZOLE-NS PMX 500 MG in SALINE 1 100ML.BAG IVPB SCH ×2 (10:16→16:18)
[2018-01-10] MEDS: LEVOFLOXACIN 500MG-D5W PMX 500 MG in DEXTROSE/WATER 1 100ML.BAG IVPB SCH (12:00)
--- NOTE | 2018-01-10 15:13 | P.GSCN ---
History of Present Illness Consult date: 01/10/18 Reason for Consult: Abdominal pain History of present illness: 82-year-old female known to our service. Patient presents to the hospital with a one-day history of abdominal pain. Pain is described as crampy. Some nausea. Some diarrhea as well that started about a day or so prior to that. Denies rectal bleeding or melena. Has not noticed any mucus. History of previous colitis in the past possibly ischemic in nature. Patient has a history of peripheral vascular disease as well. Pain somewhat better today. Labs show a lactic acidosis returned to normal. White blood cell count remains slightly elevated. Repeat abdominal x-rays today are pending. Denies fevers. No tachycardia. Last colonoscopy November 2015. A few small adenomas found but no colitis. This was done by Dr. Tompkins. Review of Systems The patient denies any acute changes in vision or hearing, no dysphagia or odynophagia, no chest pain or shortness of breath, no dysuria or hematuria, no headache, no runny nose, no rectal bleeding or melena, no unexplained weight loss Past Medical History Past Medical History: Atrial Fibrillation, Atrial Flutter, Coronary Artery Disease (CAD), Cancer, Heart Failure, COPD, CVA/TIA, Hyperlipidemia, Hypertension, Liver Disease, Thyroid Disorder, Vascular Disorder Additional Past Medical History / Comment(s): hx Kidney Stones, Chronic N/T BILAT LEGS, WITH BLE EDEMA, degenerative arthritis, hx hepatitis C, hx cervical cancer, PVD Last Myocardial Infarction Date:: 2009 History of Any Multi-Drug Resistant Organisms: None Reported Past Surgical History: Appendectomy, Cholecystectomy, Heart Catheterization With Stent, Hysterectomy, Joint Replacement, Pacemaker Additional Past Surgical History / Comment(s): 2--17 abd. aortogram, ERCP, 4 cardiac stents, left hip replacement, Past Anesthesia/Blood Transfusion Reactions: Family History of Problems w/ Anesthesia Additional Past Anesthesia/Blood Transfusion Reaction / Comm: sister-long time to come out Date of Last Stent Placement:: unknown Type of Cardiac Device: Permanent Pacemaker Device Placement Date:: 2014 Past Psychological History: No Psychological Hx Reported Smoking Status: Former smoker Past Alcohol Use History: Rare Additional Past Alcohol Use History / Comment(s): Patient quit smoking in 2016. She smoked one pack per day for greater than 35 years. No illicit drug use. rare alcohol use. Past Drug Use History: None Reported - Past Family History Son(s) Family Medical History: Cancer Additional Family Medical History / Comment(s): Patient has 3 sons and one has been diagnosed with bladder cancer. Father Family Medical History: COPD (father at age of 89 from COPD/emphysema.) Additional Family Medical History / Comment(s): EMPHYSEMA. Father at age 89 from COPD. Mother Family Medical History: Chest Pain / Angina, Myocardial Infarction ([place]) (mother at age of 91 from myocardial infarction) Additional Family Medical History / Comment(s): Mother at age 91 from myocardial infarction. Brother(s) Family Medical History: Cancer Additional Family Medical History / Comment(s): Patient has 2 brothers and one was diagnosed with esophageal cancer with metastatic disease. Daughter(s) Family Medical History: Cancer (patient has 3 daughters one of them was diagnosed with leukemia.) Additional Family Medical History / Comment(s): Patient has 3 daughters and one diagnosed with leukemia. Medications and Allergies Home Medications Medication Instructions Recorded Confirmed Type Levothyroxine Sodium [Synthroid] 50 mcg PO DAILY 11/07/14 01/10/18 History Lisinopril [Zestril] 5 mg PO HS 11/07/14 01/10/18 History Clopidogrel [Plavix] 75 mg PO DAILY #90 tab 09/11/16 01/10/18 Rx Rosuvastatin [Crestor] 20 mg PO HS 10/09/16 01/10/18 History Rivaroxaban [Xarelto] 20 mg PO HS 03/09/17 01/10/18 History Famotidine [Pepcid] 20 mg PO DAILY #0 03/11/17 01/10/18 Rx Furosemide [Lasix] 20 mg PO DAILY #0 03/11/17 01/10/18 Rx Potassium Chloride [K-Tab ER] 10 meq PO DAILY 12/22/17 01/10/18 History Metoprolol Succinate [Toprol Xl] 50 mg PO BID 01/10/18 01/10/18 History traMADol HCL [Ultram] 50 mg PO Q12H PRN 01/10/18 01/10/18 History Allergies Allergy/AdvReac Type Severity Reaction Status Date / Time hydromorphone [From Dilaudid] AdvReac Nausea & Verified 01/10/18 09:49 Vomiting lorazepam [From Ativan] AdvReac Hallucinati Verified 01/10/18 09:49 ons Surgical - Exam Vital Signs Temp Pulse Resp BP Pulse Ox 98.0 F 75 18 113/69 95 01/09/18 20:09 01/09/18 20:09 01/09/18 20:09 01/09/18 20:09 01/09/18 20:09 Physical exam: General: Well-developed, well-nourished HEENT: Normocephalic, sclerae nonicteric Abdomen: Mild diffuse tenderness, nondistended Extremities: No edema Neuro: Alert and oriented Results - Labs 01/10/18 06:44 01/10/18 06:44 Abnormal Lab Results - Last 24 Hours (Table) 01/09/18 01/09/18 01/09/18 Range/Units 20:15 20:15 20:15 WBC 14.5 H (3.8-10.6) k/uL RBC 5.74 H (3.80-5.40) m/uL Hgb 17.2 H (11.4-16.0) gm/dL Hct 52.8 H (34.0-46.0) % Neutrophils # 7.9 H (1.3-7.7) k/uL Lymphocytes # 5.7 H (1.0-4.8) k/uL Potassium 3.3 L (3.5-5.1) mmol/L Chloride (98-107) mmol/L Carbon Dioxide 21 L (22-30) mmol/L BUN 20 H (7-17) mg/dL Creatinine 1.40 H (0.52-1.04) mg/dL Glucose 130 H (74-99) mg/dL Plasma Lactic Acid Tyler 2.9 H* (0.7-2.0) mmol/L Calcium 10.4 H (8.4-10.2) mg/dL Total Bilirubin 1.5 H (0.2-1.3) mg/dL AST 40 H (14-36) U/L Total Protein (6.3-8.2) g/dL Albumin (3.5-5.0) g/dL Amylase 307 H* (30-110) U/L Urine Appearance (Clear) Urine Protein (Negative) Urine Blood (Negative) Ur Leukocyte Esterase (Negative) Urine WBC (0-5) /hpf Amorphous Sediment (None) /hpf Urine Bacteria (None) /hpf Urine Mucus (None) /hpf 01/09/18 01/10/18 01/10/18 Range/Units 22:02 00:23 06:44 WBC 15.4 H (3.8-10.6) k/uL RBC (3.80-5.40) m/uL Hgb (11.4-16.0) gm/dL Hct 50.7 H (34.0-46.0) % Neutrophils # 13.7 H (1.3-7.7) k/uL Lymphocytes # (1.0-4.8) k/uL Potassium (3.5-5.1) mmol/L Chloride (98-107) mmol/L Carbon Dioxide (22-30) mmol/L BUN (7-17) mg/dL Creatinine (0.52-1.04) mg/dL Glucose (74-99) mg/dL Plasma Lactic Acid Tyler 3.3 H* (0.7-2.0) mmol/L Calcium (8.4-10.2) mg/dL Total Bilirubin (0.2-1.3) mg/dL AST (14-36) U/L Total Protein (6.3-8.2) g/dL Albumin (3.5-5.0) g/dL Amylase (30-110) U/L Urine Appearance Cloudy H (Clear) Urine Protein 1+ H (Negative) Urine Blood Trace H (Negative) Ur Leukocyte Esterase Small H (Negative) Urine WBC 13 H (0-5) /hpf Amorphous Sediment Rare H (None) /hpf Urine Bacteria Moderate H (None) /hpf Urine Mucus Rare H (None) /hpf 01/10/18 Range/Units 06:44 WBC (3.8-10.6) k/uL RBC (3.80-5.40) m/uL Hgb (11.4-16.0) gm/dL Hct (34.0-46.0) % Neutrophils # (1.3-7.7) k/uL Lymphocytes # (1.0-4.8) k/uL Potassium (3.5-5.1) mmol/L Chloride 113 H (98-107) mmol/L Carbon Dioxide 21 L (22-30) mmol/L BUN 25 H (7-17) mg/dL Creatinine 1.50 H (0.52-1.04) mg/dL Glucose 220 H (74-99) mg/dL Plasma Lactic Acid [place] (0.7-2.0) mmol/L Calcium (8.4-10.2) mg/dL Total Bilirubin (0.2-1.3) mg/dL AST 40 H (14-36) U/L Total Protein 5.4 L (6.3-8.2) g/dL Albumin 2.9 L (3.5-5.0) g/dL Amylase (30-110) U/L Urine Appearance (Clear) Urine Protein (Negative) Urine Blood (Negative) Ur Leukocyte Esterase (Negative) Urine WBC (0-5) /hpf Amorphous Sediment (None) /hpf Urine Bacteria (None) /hpf Urine Mucus (None) /hpf Microbiology - Last 24 Hours (Table) 01/09/18 22:02 Urine Culture - Preliminary Urine,Voided Diabetes panel 01/09/18 01/10/18 Range/Units 20:15 06:44 Sodium 140 143 (137-145) mmol/L Potassium 3.3 L 3.5 (3.5-5.1) mmol/L Chloride 106 113 H (98-107) mmol/L Carbon Dioxide 21 L 21 L (22-30) mmol/L BUN 20 H 25 H (7-17) mg/dL Creatinine 1.40 H 1.50 H (0.52-1.04) mg/dL Glucose 130 H 220 H (74-99) mg/dL Calcium 10.4 H 8.5 (8.4-10.2) mg/dL AST 40 H 40 H (14-36) U/L ALT 24 32 (9-52) U/L Alkaline Phosphatase 101 60 (38-126) U/L Total Protein 7.4 5.4 L (6.3-8.2) g/dL Albumin 4.2 2.9 L (3.5-5.0) g/dL Calcium panel 01/09/18 01/10/18 Range/Units 20:15 06:44 Calcium 10.4 H 8.5 (8.4-10.2) mg/dL Albumin 4.2 2.9 L (3.5-5.0) g/dL Pituitary panel 01/09/18 01/10/18 Range/Units 20:15 06:44 Sodium 140 143 (137-145) mmol/L Potassium 3.3 L 3.5 (3.5-5.1) mmol/L Chloride 106 113 H (98-107) mmol/L Carbon Dioxide 21 L 21 L (22-30) mmol/L BUN 20 H 25 H (7-17) mg/dL Creatinine 1.40 H 1.50 H (0.52-1.04) mg/dL Glucose 130 H 220 H (74-99) mg/dL Calcium 10.4 H 8.5 (8.4-10.2) mg/dL Adrenal panel 01/09/18 01/10/18 Range/Units 20:15 06:44 Sodium 140 143 (137-145) mmol/L Potassium 3.3 L 3.5 (3.5-5.1) mmol/L Chloride 106 113 H (98-107) mmol/L Carbon Dioxide 21 L 21 L (22-30) mmol/L BUN 20 H 25 H (7-17) mg/dL Creatinine 1.40 H 1.50 H (0.52-1.04) mg/dL Glucose 130 H 220 H (74-99) mg/dL Calcium 10.4 H 8.5 (8.4-10.2) mg/dL Total Bilirubin 1.5 H 1.3 (0.2-1.3) mg/dL AST 40 H 40 H (14-36) U/L ALT 24 32 (9-52) U/L Alkaline Phosphatase 101 60 (38-126) U/L Total Protein 7.4 5.4 L (6.3-8.2) g/dL Albumin 4.2 2.9 L (3.5-5.0) g/dL Assessment and Plan (1) Colitis Narrative/Plan: Continue antibiotics for suspected ischemic colitis. Will check SMA via CT angiogram. Patient does have a history of extensive peripheral vascular disease. This is likely related to small vessel disease however. Begin clear liquid diet. Repeat labs tomorrow. Will follow. Current Visit: Yes Status: Acute Code(s): K52.9 - NONINFECTIVE GASTROENTERITIS AND COLITIS, UNSPECIFIED SNOMED Code(s): 14890310
--- NOTE | 2018-01-10 15:29 | P.HPIM ---
History of Present Illness H&P Date: 01/10/18 This is an 82-year-old female one of Dr. Kirkpatrick with a previous medical history significant for hypertension and hypertensive cardiovascular disease, atrial flutter/fibrillation status post permanent pacemaker placement on xarelto, history of previous CVA, CAD status post microinfarction in the past , PVD status post stents by Dr. Cotton in both lower extremities last one was about 09/03/2015, admission February 2017 for acute kidney injury secondary to aggressive diuresis. Patient is complaining of lower abdominal pain that is severe and feeling that she needs to have a bowel movement but is unable to do that. She has had several episodes of vomiting. Onset of symptoms were yesterday. No fever or chills she denies any diarrhea. She denies any chest pain or shortness of breath. She came into [facility] emergency center by EMS. She was found to be afebrile with stable vital signs, leukocytosis of 14.5, BUN 20 creatinine 1.4 and potassium 3.3. Blood sugar was 130. Amylase 307, lipase 133, troponin was normal. Lactic acid was 2.9. Urinalysis was cloudy, trace blood, nitrate negative, leukoesterase small, bacteria moderate. She had a chest x-ray shows no acute cardiopulmonary process. CT of the abdomen and pelvis without contrast shows diffuse wall thickening of the left colon compared to old exam consistent with nonspecific colitis. She large bowel with air-fluid levels consistent with ileus. No evidence of an abscess. Extensive colonic diverticulosis. Patient was given IV ceftriaxone, Reglan and Flagyl status post 2 L of IV fluid and admitted to the [facility] floor. Patient is nothing by mouth. A consult with Dr. Balbuena requested and repeat abdominal x-rays. Review of Systems All systems: negative Constitutional: Reports fatigue, Reports poor appetite, Denies chills, Denies fever Eyes: denies blurred vision, denies pain Ears, nose, mouth and throat: Denies headache, Denies sore throat, Denies vertigo Cardiovascular: Denies chest pain, Denies decreased exercise tolerance, Denies dyspnea on exertion, Denies leg edema, Denies lightheadedness, Denies shortness of breath, Denies syncope Respiratory: Denies cough, Denies cough with sputum, Denies dyspnea, Denies excessive sputum, Denies hemoptysis, Denies home oxygen, Denies wheezing Gastrointestinal: Reports abdominal pain, Reports diarrhea, Reports loss of appetite, Reports nausea, Reports vomiting, Denies hematemesis, Denies hematochezia, Denies melena Genitourinary: Denies dysuria, Denies hematuria, Denies urgency, Denies urinary frequency Musculoskeletal: Denies myalgias Integumentary: Denies pruritus, Denies rash Neurological: Denies confusion, Denies gait dysfunction, Denies numbness, Denies weakness Psychiatric: Denies anxiety, Denies depression Endocrine: Denies fatigue, Denies weight change Past Medical History Past Medical History: Atrial Fibrillation, Atrial Flutter, Coronary Artery Disease (CAD), Cancer, Heart Failure, COPD, CVA/TIA, Hyperlipidemia, Hypertension, Liver Disease, Thyroid Disorder, Vascular Disorder Additional Past Medical History / Comment(s): hx Kidney Stones, Chronic N/T BILAT LEGS, WITH BLE EDEMA, degenerative arthritis, hx hepatitis C, hx cervical cancer, PVD Last Myocardial Infarction Date:: 2009 History of Any Multi-Drug Resistant Organisms: None Reported Past Surgical History: Appendectomy, Cholecystectomy, Heart Catheterization With Stent, Hysterectomy, Joint Replacement, Pacemaker Additional Past Surgical History / Comment(s): 2-6-17 abd. aortogram, ERCP, 4 cardiac stents, left hip replacement, Past Anesthesia/Blood Transfusion Reactions: Family History of Problems w/ Anesthesia Additional Past Anesthesia/Blood Transfusion Reaction / Comment(s): sister-long time to come out Date of Last Stent Placement:: unknown Type of Cardiac Device: Permanent Pacemaker Device Placement Date:: 2014 Past Psychological History: No Psychological Hx Reported Smoking Status: Former smoker Past Alcohol Use History: Rare Additional Past Alcohol Use History / Comment(s): Patient quit smoking in 2016. She smoked one pack per day for greater than 35 years. No illicit drug use. rare alcohol use. Past Drug Use History: None Reported - Past Family History Son(s) Family Medical History: Cancer Additional Family Medical History / Comment(s): Patient has 3 sons and one has been diagnosed with bladder cancer. Father Family Medical History: COPD (father at age of 89 from COPD/emphysema.) Additional Family Medical History / Comment(s): EMPHYSEMA. Father at age 89 from COPD. Mother Family Medical History: Chest Pain / Angina, Myocardial Infarction ([place]) (mother at age of 91 from myocardial infarction) Additional Family Medical History / Comment(s): Mother at age 91 from myocardial infarction. Brother(s) Family Medical History: Cancer Additional Family Medical History / Comment(s): Patient has 2 brothers and one was diagnosed with esophageal cancer with metastatic disease. Daughter(s) Family Medical History: Cancer (patient has 3 daughters one of them was diagnosed with leukemia.) Additional Family Medical History / Comment(s): Patient has 3 daughters and one diagnosed with leukemia. Medications and Allergies Home Medications Medication Instructions Recorded Confirmed Type Levothyroxine Sodium [Synthroid] 50 mcg PO DAILY 11/07/14 01/10/18 History Lisinopril [Zestril] 5 mg PO HS 11/07/14 01/10/18 History Clopidogrel [Plavix] 75 mg PO DAILY #90 tab 09/11/16 01/10/18 Rx Rosuvastatin [Crestor] 20 mg PO HS 10/09/16 01/10/18 History Rivaroxaban [Xarelto] 20 mg PO HS 03/09/17 01/10/18 History Famotidine [Pepcid] 20 mg PO DAILY #0 03/11/17 01/10/18 Rx Furosemide [Lasix] 20 mg PO DAILY #0 03/11/17 01/10/18 Rx Potassium Chloride [K-Tab ER] 10 meq PO DAILY 12/22/17 01/10/18 History Metoprolol Succinate [Toprol Xl] 50 mg PO BID 01/10/18 01/10/18 History traMADol HCL [Ultram] 50 mg PO Q12H PRN 01/10/18 01/10/18 History Allergies Allergy/AdvReac Type Severity Reaction Status Date / Time hydromorphone [From Dilaudid] AdvReac Nausea & Verified 01/10/18 09:49 Vomiting lorazepam [From Ativan] AdvReac Hallucinati Verified 01/10/18 09:49 ons Physical Exam Vitals: Vital Signs Temp Pulse Pulse Resp BP BP Pulse Ox 01/10/18 06:44 97.7 F 82 16 140/79 94 L 01/10/18 01:15 75 20 127/62 92 L 01/09/18 22:52 79 20 169/86 92 L 01/09/18 20:09 98.0 F 75 18 113/69 95 Intake and Output 01/09/18 01/10/18 01/10/18 22:59 06:59 14:59 Intake Total 1500 Balance 1500 Intake: Amount of Fluid Infused ( 1500 ml) Other: # Bowel Movements 2 Weight 68.039 kg General appearance: average body habitus, no acute distress - EENT Eyes: anicteric sclerae, EOMI, PERRLA, no ptosis, no scleral icterus, normal appearance ENT: hearing grossly normal, NA/AT, normal oropharynx, no thrush Ears: bilateral: normal - Neck Neck: no lymphadenopathy, normal ROM, no rigidity, no stridor, no thyromegaly Carotids: bilateral: upstroke normal Thyroid: bilateral: normal size - Respiratory Respiratory: bilateral: diminished, negative: dullness, rales, rhonchi, wheezing , prolonged expiration, prolonged inspiration - Cardiovascular Rhythm: irregularly irregular (permanent pacemaker.) Heart sounds: normal: S1, S2 Abnormal Heart Sounds: systolic murmur, no rub, no click - Gastrointestinal General gastrointestinal: normal bowel sounds, soft, no splenomegaly, generalized tenderness more severe in the lower quadrants. - Integumentary Integumentary: normal, normal turgor - Neurologic Neurologic: CNII-XII intact - Musculoskeletal Musculoskeletal: gait normal, strength equal bilaterally - Psychiatric Psychiatric: A&O x's 3, appropriate affect, intact judgment & insight Results CBC & Chem 7: 01/10/18 06:44 01/10/18 06:44 Labs: Abnormal Lab Results - Last 24 Hours (Table) 01/09/18 01/09/18 01/09/18 Range/Units 20:15 20:15 20:15 WBC 14.5 H (3.8-10.6) k/uL RBC 5.74 H (3.80-5.40) m/uL Hgb 17.2 H (11.4-16.0) gm/dL Hct 52.8 H (34.0-46.0) % Neutrophils # 7.9 H (1.3-7.7) k/uL Lymphocytes # 5.7 H (1.0-4.8) k/uL Potassium 3.3 L (3.5-5.1) mmol/L Chloride (98-107) mmol/L Carbon Dioxide 21 L (22-30) mmol/L BUN 20 H (7-17) mg/dL Creatinine 1.40 H (0.52-1.04) mg/dL Glucose 130 H (74-99) mg/dL Plasma Lactic Acid Tyler 2.9 H* (0.7-2.0) mmol/L Calcium 10.4 H (8.4-10.2) mg/dL Total Bilirubin 1.5 H (0.2-1.3) mg/dL AST 40 H (14-36) U/L Total Protein (6.3-8.2) g/dL Albumin (3.5-5.0) g/dL Amylase 307 H* (30-110) U/L Urine Appearance (Clear) Urine Protein (Negative) Urine Blood (Negative) Ur Leukocyte Esterase (Negative) Urine WBC (0-5) /hpf Amorphous Sediment (None) /hpf Urine Bacteria (None) /hpf Urine Mucus (None) /hpf 01/09/18 01/10/18 01/10/18 Range/Units 22:02 00:23 06:44 WBC 15.4 H (3.8-10.6) k/uL RBC (3.80-5.40) m/uL Hgb (11.4-16.0) gm/dL Hct 50.7 H (34.0-46.0) % Neutrophils # 13.7 H (1.3-7.7) k/uL Lymphocytes # (1.0-4.8) k/uL Potassium (3.5-5.1) mmol/L Chloride (98-107) mmol/L Carbon Dioxide (22-30) mmol/L BUN (7-17) mg/dL Creatinine (0.52-1.04) mg/dL Glucose (74-99) mg/dL Plasma Lactic Acid Tyler 3.3 H* (0.7-2.0) mmol/L Calcium (8.4-10.2) mg/dL Total Bilirubin (0.2-1.3) mg/dL AST (14-36) U/L Total Protein (6.3-8.2) g/dL Albumin (3.5-5.0) g/dL Amylase (30-110) U/L Urine Appearance Cloudy H (Clear) Urine Protein 1+ H (Negative) Urine Blood Trace H (Negative) Ur Leukocyte Esterase Small H (Negative) Urine WBC 13 H (0-5) /hpf Amorphous Sediment Rare H (None) /hpf Urine Bacteria Moderate H (None) /hpf Urine Mucus Rare H (None) /hpf 01/10/18 Range/Units 06:44 WBC (3.8-10.6) k/uL RBC (3.80-5.40) m/uL Hgb (11.4-16.0) gm/dL Hct (34.0-46.0) % Neutrophils # (1.3-7.7) k/uL Lymphocytes # (1.0-4.8) k/uL Potassium (3.5-5.1) mmol/L Chloride 113 H (98-107) mmol/L Carbon Dioxide 21 L (22-30) mmol/L BUN 25 H (7-17) mg/dL Creatinine 1.50 H (0.52-1.04) mg/dL Glucose 220 H (74-99) mg/dL Plasma Lactic Acid Tyler (0.7-2.0) mmol/L Calcium (8.4-10.2) mg/dL Total Bilirubin (0.2-1.3) mg/dL AST 40 H (14-36) U/L Total Protein 5.4 L (6.3-8.2) g/dL Albumin 2.9 L (3.5-5.0) g/dL Amylase (30-110) U/L Urine Appearance (Clear) Urine Protein (Negative) Urine Blood (Negative) Ur Leukocyte Esterase (Negative) Urine WBC (0-5) /hpf Amorphous Sediment (None) /hpf Urine Bacteria (None) /hpf Urine Mucus (None) /hpf Thrombosis Risk Factor Assmnt - DVT/VTE Prophylaxis DVT/VTE Prophylaxis: Pharmacologic Prophylaxis ordered - Choose All That Apply Any of the Below Risk Factors Present?: Yes Each Factor Represents 1 point: Medical pt on bed rest, Obesity (BMI >25) Other Risk Factors: Yes Each Risk Factor Represents 3 Points: Age 75 years or older, History of DVT/PE Thrombosis Risk Factor Assessment Total Risk Factor Score: 8 Thrombosis Risk Factor Assessment Level: High Risk Assessment and Plan Plan: 1. Acute colitis, possible ischemic colitis, possible ileus. Patient made nothing by mouth. Levaquin and Flagyl started. Consult with Dr. Balbuena ordered. Repeat abdominal x-rays. Continue Zofran for nausea and morphine for pain control. Continue IV fluids at 75 mL per hour. Check stool for occult blood. 2. History of CAD. Continue metoprolol 50 mg orally twice every day. 3. Hypertension and hypertensive cardiovascular disease. Continue lisinopril 5 mg orally once every day, metoprolol 50 mg orally twice every day. 4. Hypothyroidism. Continue Synthroid 50 g orally once every day. 5. PAD post PTBI with stent placement of both lower extremities. Stable. Continue Plavix 6. Atrial fibrillation post-permanent pacemaker placement. Continue metoprolol 50 mg orally twice every day as well as Xarelto 15 mg orally once every day. 7. Chronic kidney disease stage III. Monitor kidney function. 8. DVT prophylaxis. Continue with the Xarelto. 9. Gastrointestinal prophylaxis. Protonix. 10. Full code. 11. Admitted to inpatient. Estimate a length of stay 2 midnights. Impression and plan of care have been directed as dictated by the signing physician. Bette Copeland nurse practitioner acting as scribe for signing physician.
--- NOTE | 2018-01-10 16:06 | XR ---
EXAMINATION TYPE: XR abdomen 2V DATE OF EXAM: 01/10/2018 2:20 PM CLINICAL HISTORY: Follow-up for ileus TECHNIQUE: Upright and supine abdominal images were performed. COMPARISON: 01/09/2018. FINDINGS: Few mildly dilated small bowel loops stacked upon one another within the right lower quadra nt measuring up to 3.1 cm. Left hip arthroplasty is noted. There is atherosclerosis of the abdominal aorta and its branches. No dilated large bowel. Lung bases are well aerated. No pneumoperitoneum is s een on the upright image. IMPRESSION: Few minimally dilated loops of small bowel within the right mid abdomen suggest mild smal l bowel ileus. No evidence of obstruction.
[2018-01-10] MEDS ORDERED: SODIUM CHLORIDE 0.9% 500 ML IV ONE (20:59)
[2018-01-10] MEDS ORDERED: LISINOPRIL 5 MG TAB PO SCH (21:00)
[2018-01-10] MEDS ORDERED: RIVAROXABAN 15 MG TAB PO SCH (21:00)
[2018-01-10] MEDS ORDERED: METOPROLOL SUCCINATE (ER) 50 MG TAB.ER.24H PO SCH (21:00)
[2018-01-10 21:05] LABS: Glucose,Whole Blood 105 mg/dL (75-99)
[2018-01-10 21:14] LABS: Basophils # (A) 0.1 k/uL (0-0.2); Basophils % (A) 0 %; Eosinophils # (A) 0.1 k/uL (0-0.7); Eosinophils % (A) 1 %; HCT 50.8 % (34.0-46.0); HGB 16.4 gm/dL (11.4-16.0); Lymphocytes # (A) 1.8 k/uL (1.0-4.8); Lymphocytes % (A) 11 %; MCH 29.9 pg (25.0-35.0); MCHC 32.2 g/dL (31.0-37.0); MCV 92.9 fL (80.0-100.0); Mean Platelet Volume 7.4; Monocytes # (A) 0.5 k/uL (0-1.0); Monocytes % (A) 3 %; Neutrophils # (A) 13.5 k/uL (1.3-7.7); Neutrophils % (A) 84 %; Platelet Count 165 k/uL (150-450); RBC 5.47 m/uL (3.80-5.40); RDW 14.7 % (11.5-15.5); WBC 16.2 k/uL (3.8-10.6)
[2018-01-10] MEDS: traMADol 50 MG TAB PO PRN (21:14)
[2018-01-10 21:26] LABS: INR 1.5 (<1.2); Partial Thromboplastin Time 27.6 sec (22.0-30.0)
[2018-01-10 21:28] LABS: Albumin 2.9 g/dL (3.5-5.0); Calcium 8.3 mg/dL (8.4-10.2); Magnesium 1.9 mg/dL (1.6-2.3); Phosphorus 2.9 mg/dL (2.5-4.5); Potassium 3.5 mmol/L (3.5-5.1); Total Bilirubin 0.9 mg/dL (0.2-1.3); Total Protein 5.5 g/dL (6.3-8.2)
--- NOTE | 2018-01-10 21:55 | XR ---
EXAMINATION TYPE: XR abdomen 1V DATE OF EXAM: 01/10/2018 COMPARISON: 11/07/2014 HISTORY: Abdominal pain TECHNIQUE: 2 views supine FINDINGS: There is no sign of intestinal obstruction or pneumoperitoneum. There is gas-filled multipl e loops of small bowel. There is left hip prosthesis. IMPRESSION: There is probably small bowel ileus that is new compared to old exam. No free air.
[2018-01-10] MEDS: DILTIAZEM 50 MG in SODIUM CHLORIDE 0.9% 40 ML IV SCH ×2 (22:10→23:53)
[2018-01-10] MEDS ORDERED: DILTIAZEM DRIP BOLUS FROM BAG 1 MG SOLN IV ONE (22:14)
[2018-01-10 23:27] LABS: Appearance,Urine Turbid (Clear); Bilirubin,Urine Negative (Negative); Blood,Urine Moderate (Negative); Color,Urine Red; Glucose,Urine (UA) Negative (Negative); Ketones,Urine Negative (Negative); Leukocyte Esterase,Urine Large (Negative); Mucus,Urine Moderate /hpf; Nitrite,Urine Negative (Negative); Protein,Urine 2+ (Negative); RBC,Urine 97 /hpf (0-5); Urobilinogen,Urine <2.0 mg/dL (<2.0); WBC,Urine >182 /hpf (0-5)
[2018-01-10 23:28] LABS: Specific Gravity,Urine 1.013 (1.001-1.035)
[2018-01-11] MEDS: DILTIAZEM 50 MG in SODIUM CHLORIDE 0.9% 40 ML IV SCH (00:03)
[2018-01-11] MEDS: metroNIDAZOLE-NS PMX 500 MG in SALINE 1 100ML.BAG IVPB SCH ×3 (00:11→16:47)
[2018-01-11] MEDS: MORPHINE SULFATE 4 MG/ML SYRINGE IV PRN (03:04)
[2018-01-11] MEDS: SODIUM CHLORIDE 0.9% 1,000 ML IV SCH ×2 (03:05→12:53)
[2018-01-11 05:12] LABS: Basophils % (A) 0 %; Eosinophils % (A) 0 %; HCT 38.7 % (34.0-46.0); Lymphocytes # (A) 1.1 k/uL (1.0-4.8); Lymphocytes % (A) 8 %; MCH 30.7 pg (25.0-35.0); MCHC 32.9 g/dL (31.0-37.0); MCV 93.4 fL (80.0-100.0); Mean Platelet Volume 7.7; Monocytes # (A) 0.5 k/uL (0-1.0); Monocytes % (A) 4 %; Neutrophils % (A) 87 %; Platelet Count 138 k/uL (150-450); RBC 4.14 m/uL (3.80-5.40); RDW 14.7 % (11.5-15.5); WBC 13.8 k/uL (3.8-10.6)
[2018-01-11 05:13] LABS: HGB 12.7 gm/dL (11.4-16.0)
[2018-01-11 05:26] LABS: Calcium 7.7 mg/dL (8.4-10.2); Magnesium 1.7 mg/dL (1.6-2.3); Phosphorus 3.3 mg/dL (2.5-4.5); Potassium 3.3 mmol/L (3.5-5.1)
[2018-01-11] MEDS ORDERED: Potassium Replacement Protocol 1 EACH MISC MISCELLANE PRN (06:21)
[2018-01-11] MEDS ORDERED: LEVOTHYROXINE IVP 100 MCG/5 ML VIAL IV SCH (06:30)
[2018-01-11] MEDS: MAGNESIUM SULFATE-D5W PMX 1 GM in DEXTROSE/WATER 1 100ML.BAG IVPB SCH ×2 (06:41→07:44)
[2018-01-11] MEDS: LEVOTHYROXINE 50 MCG TAB PO SCH (06:41)
[2018-01-11] MEDS: POTASSIUM CHLORIDE 10 MEQ in WATER FOR INJECTION 1 100ML.BAG IVPB SCH ×4 (07:37→18:23)
--- NOTE | 2018-01-11 07:44 | XR ---
EXAMINATION TYPE: XR chest 1V DATE OF EXAM: 01/11/2018 CLINICAL HISTORY: Difficulty breathing progress study. TECHNIQUE: Single AP portable upright view of the chest is obtained. COMPARISON: Chest x-ray from 2 days earlier. FINDINGS: Overlying EKG leads are redemonstrated. There is persistent cardiomegaly with dual lead pa cemaker. Patchy left basilar atelectasis is now present. Right lung is clear. No pleural effusion or pneumothorax is evident bilaterally. Osseous structures are intact. IMPRESSION: Overall stable findings, cardiomegaly with patchy left basilar atelectasis but no new s uspicious focal infiltrate.
--- NOTE | 2018-01-11 08:44 | P.CNPUL ---
History of Present Illness Consult date: 01/11/18 Reason for consult: other Chief complaint: GI bleed and hypotension History of present illness: Pulmonary consult dated 01/11/2018 82-year-old female who was seen in the emergency department on January 09. She presented to the emergency department with complaints of abdominal pain and vomiting. He was also having some bloody bowel movements. Abdominal pain was described as being very severe. The patient also had some nausea with vomiting. This occurred several times. It seemed to happen after she was eating. No fever or chills. There is no urinary complaints. No chest pain or chest discomfort. No shortness of breath. No neurologic complaints. History is consistent with atrial fibrillation and atrial flutter CAD heart failure COPD CVA hyperlipidemia hypertension liver disease hypothyroidism and peripheral last occlusive disease. The patient also has history of cervical cancer and kidney stones as well as hepatitis C. The patient was seen as an"A "team last night. She was brought to the ICU primarily because of hypotension. She is not requiring any supplemental oxygen. She's got an IV of Cardizem 5 mg an hour and a saline IV at 75 mL an hour. Her current systolic blood pressure is 90. She is awake and alert. Her only complaint today is some tenderness in the abdomen. Review of Systems A 12 point review of systems is positive for abdominal tenderness some nausea vomiting and some bloody bowel movements. The rest of the 14 point review of system is negative. Past Medical History Past Medical History: Atrial Fibrillation, Atrial Flutter, Coronary Artery Disease (CAD), Cancer, Heart Failure, COPD, CVA/TIA, Hyperlipidemia, Hypertension, Liver Disease, Thyroid Disorder, Vascular Disorder Additional Past Medical History / Comment(s): hx Kidney Stones, Chronic N/T BILAT LEGS, WITH BLE EDEMA, degenerative arthritis, hx hepatitis C, hx cervical cancer, PVD Last Myocardial Infarction Date:: 2009 History of Any Multi-Drug Resistant Organisms: None Reported Past Surgical History: Appendectomy, Cholecystectomy, Heart Catheterization With Stent, Hysterectomy, Joint Replacement, Pacemaker Additional Past Surgical History / Comment(s): 2--17 abd. aortogram, ERCP, 4 cardiac stents, left hip replacement, Past Anesthesia/Blood Transfusion Reactions: Family History of Problems w/ Anesthesia Additional Past Anesthesia/Blood Transfusion Reaction / Comment(s): sister-long time to come out Date of Last Stent Placement:: unknown Type of Cardiac Device: Permanent Pacemaker Device Placement Date:: 2014 Past Psychological History: No Psychological Hx Reported Smoking Status: Former smoker Past Alcohol Use History: Rare Additional Past Alcohol Use History / Comment(s): Patient quit smoking in 2016. She smoked one pack per day for greater than 35 years. No illicit drug use. rare alcohol use. Past Drug Use History: None Reported - Past Family History Son(s) Family Medical History: Cancer Additional Family Medical History / Comment(s): Patient has 3 sons and one has been diagnosed with bladder cancer. Father Family Medical History: COPD (father at age of 89 from COPD/emphysema.) Additional Family Medical History / Comment(s): EMPHYSEMA. Father at age 89 from COPD. Mother Family Medical History: Chest Pain / Angina, Myocardial Infarction ([place]) (mother at age of 91 from myocardial infarction) Additional Family Medical History / Comment(s): Mother at age 91 from myocardial infarction. Brother(s) Family Medical History: Cancer Additional Family Medical History / Comment(s): Patient has 2 brothers and one was diagnosed with esophageal cancer with metastatic disease. Daughter(s) Family Medical History: Cancer (patient has 3 daughters one of them was diagnosed with leukemia.) Additional Family Medical History / Comment(s): Patient has 3 daughters and one diagnosed with leukemia. Medications and Allergies Home Medications Medication Instructions Recorded Confirmed Type Levothyroxine Sodium [Synthroid] 50 mcg PO DAILY 11/07/14 01/10/18 History Lisinopril [Zestril] 5 mg PO HS 11/07/14 01/10/18 History Clopidogrel [Plavix] 75 mg PO DAILY #90 tab 09/11/16 01/10/18 Rx Rosuvastatin [Crestor] 20 mg PO HS 10/09/16 01/10/18 History Rivaroxaban [Xarelto] 20 mg PO HS 03/09/17 01/10/18 History Famotidine [Pepcid] 20 mg PO DAILY #0 03/11/17 01/10/18 Rx Furosemide [Lasix] 20 mg PO DAILY #0 03/11/17 01/10/18 Rx Potassium Chloride [K-Tab ER] 10 meq PO DAILY 12/22/17 01/10/18 History Metoprolol Succinate [Toprol Xl] 50 mg PO BID 01/10/18 01/10/18 History traMADol HCL [Ultram] 50 mg PO Q12H PRN 01/10/18 01/10/18 History Allergies Allergy/AdvReac Type Severity Reaction Status Date / Time hydromorphone [From Dilaudid] AdvReac Nausea & Verified 01/10/18 09:49 Vomiting lorazepam [From Ativan] AdvReac Hallucinati Verified 01/10/18 09:49 ons Physical Exam Osteopathic Statement: *. No significant issues noted on an osteopathic structural exam other than those noted in the History and Physical/Consult. Vitals: Vital Signs Temp Pulse Pulse Resp BP BP Pulse Ox 01/11/18 08:00 97.9 F 96 16 89/66 93 L 01/11/18 07:30 104 H 10 L 90/51 92 L 01/11/18 07:00 94 12 93/72 92 L 01/11/18 06:30 82 18 83/46 92 L 01/11/18 06:00 101 H 25 H 82/49 88 L 01/11/18 05:30 102 H 12 91/48 90 L 01/11/18 05:00 100 13 83/47 90 L 01/11/18 04:30 96 12 83/46 91 L 01/11/18 04:00 98.2 F 93 12 76/50 90 L 01/11/18 03:30 94 10 L 78/43 91 L 01/11/18 03:00 98.2 F 119 H 18 98/54 92 L 01/11/18 02:30 122 H 15 127/52 91 L 01/11/18 02:00 123 H 18 102/65 91 L 01/11/18 01:30 111 H 13 115/66 92 L 01/11/18 01:00 110 H 28 H 107/60 91 L 01/11/18 00:30 111 H 15 104/60 93 L 01/11/18 00:00 135 H 17 114/61 93 L 01/10/18 23:30 127 H 57 H 117/90 95 01/10/18 23:00 124 H 17 97/59 94 L 01/10/18 22:30 127 H 18 75/53 98 01/10/18 22:00 153 H 22 87/57 92 L 01/10/18 21:55 163 H 01/10/18 15:27 18 01/10/18 14:44 96.8 F L 87 18 144/45 92 L Intake and Output 01/10/18 01/11/18 01/11/18 22:59 06:59 14:59 Intake Total 0 2725.167 250 Output Total 1405 75 Balance 0 1320.167 175 Intake: IV 525 150 Sodium Chloride 0.9% 1, 525 150 000 ml @ 75 mls/hr IV . [id number] [facility] Rx#:[id number] Intake, IV Titration 0 2200.167 100 Amount Diltiazem 50 mg In Sodium 0 0.167 Chloride 0.9% 40 ml @ Per Protocol IV .Q0M [facility] Rx#:[id number] Magnesium Sulfate-D5w Pmx 100 1 gm In Dextrose/Water 1 100ml.bag @ 100 mls/hr IVPB Q1H [facility] Rx#: [id number] Potassium Chloride 10 meq 100 In Water For Injection 1 100ml.bag @ 100 mls/hr IVPB Q1HR [facility] Rx#: [id number] Sodium Chloride 0.9% 500 2000 ml @ 999 mls/hr IV .Q31M [facility] Rx#:[id number] metroNIDAZOLE-NS PMX 500 100 mg In Saline 1 100ml.bag @ 100 mls/hr IVPB Q8HR [facility] Rx#:[id number] Output: Urine 1405 75 Other: Voiding Method Indwelling Catheter # Voids 0 # Bowel Movements 0 Weight 68.9 kg No acute distress, oriented 3. No supplemental oxygen. HEENT examination is grossly unremarkable. Mucous membranes are moist. No oral lesions. Neck supple. Full range of motion. No adenopathy thyromegaly or neck vein distention. Cardiovascular examination reveals a irregular rhythm and rate. S1-S2 normal. No heart murmur noted.. Lungs reveal clear breath sounds. Her sounds are equal bilaterally. No adventitious lung sounds including wheezes rhonchi or crackles. Abdomen tender on palpation. No bowel sounds. Extremities are intact. No cyanosis clubbing or edema. Skin is without rash or lesion. Neurologic examination is brief but nonfocal. Results - Laboratory Findings CBC and BMP: 01/11/18 04:35 01/11/18 04:35 PT/INR, D-dimer PT 14.0 sec (9.0-12.0) H 01/10/18 21:04 INR 1.5 (<1.2) H 01/10/18 21:04 Abnormal lab findings: Abnormal Labs 01/09/18 01/09/18 01/09/18 20:15 20:15 20:15 WBC 14.5 H RBC 5.74 H Hgb 17.2 H Hct 52.8 H Plt Count Neutrophils # 7.9 H Lymphocytes # 5.7 H PT INR Potassium 3.3 L Chloride Carbon Dioxide 21 L BUN 20 H Creatinine 1.40 H Glucose 130 H POC Glucose (mg/dL) Plasma Lactic Acid Tyler 2.9 H* Calcium 10.4 H Total Bilirubin 1.5 H AST 40 H Total Protein Albumin Amylase 307 H* Urine Appearance Urine Protein Urine Blood Ur Leukocyte Esterase Urine RBC Urine WBC Amorphous Sediment Urine Bacteria Urine Mucus 01/09/18 01/10/18 01/10/18 22:02 00:23 06:44 WBC 15.4 H RBC Hgb Hct 50.7 H Plt Count Neutrophils # 13.7 H Lymphocytes # PT INR Potassium Chloride Carbon Dioxide BUN Creatinine Glucose POC Glucose (mg/dL) Plasma Lactic Acid Tyler 3.3 H* Calcium Total Bilirubin AST Total Protein Albumin Amylase Urine Appearance Cloudy H Urine Protein 1+ H Urine Blood Trace H Ur Leukocyte Esterase Small H Urine RBC Urine WBC 13 H Amorphous Sediment Rare H Urine Bacteria Moderate H Urine Mucus Rare H 01/10/18 01/10/18 01/10/18 06:44 20:54 21:04 WBC 16.2 H RBC 5.47 H Hgb 16.4 H Hct 50.8 H Plt Count Neutrophils # 13.5 H Lymphocytes # PT INR Potassium Chloride 113 H Carbon Dioxide 21 L BUN 25 H Creatinine 1.50 H Glucose 220 H POC Glucose (mg/dL) 105 H Plasma Lactic Acid Tyler Calcium Total Bilirubin AST 40 H Total Protein 5.4 L Albumin 2.9 L Amylase Urine Appearance Urine Protein Urine Blood Ur Leukocyte Esterase Urine RBC Urine WBC Amorphous Sediment Urine Bacteria Urine Mucus 01/10/18 01/10/18 01/10/18 21:04 21:04 21:45 WBC RBC Hgb Hct Plt Count Neutrophils # Lymphocytes # PT 14.0 H INR 1.5 H Potassium Chloride 111 H Carbon Dioxide 18 L BUN 25 H Creatinine 1.48 H Glucose 109 H POC Glucose (mg/dL) Plasma Lactic Acid Tyler 2.6 H* Calcium 8.3 L Total Bilirubin AST Total Protein 5.5 L Albumin 2.9 L Amylase Urine Appearance Urine Protein Urine Blood Ur Leukocyte Esterase Urine RBC Urine WBC Amorphous Sediment Urine Bacteria Urine Mucus 01/10/18 01/11/18 01/11/18 23:20 04:35 04:35 WBC 13.8 H RBC Hgb Hct Plt Count 138 L Neutrophils # 12.0 H Lymphocytes # PT INR Potassium 3.3 L Chloride 114 H Carbon Dioxide 19 L BUN 23 H Creatinine 1.40 H Glucose 104 H POC Glucose (mg/dL) Plasma Lactic Acid Tyler Calcium 7.7 L Total Bilirubin AST Total Protein Albumin Amylase Urine Appearance Turbid H Urine Protein 2+ H Urine Blood Moderate H Ur Leukocyte Esterase Large H Urine RBC 97 H Urine WBC >182 H Amorphous Sediment Urine Bacteria Urine Mucus Moderate H - Diagnostic Findings Chest x-ray: report reviewed, image reviewed (Chest x-ray, labs, and medications are all reviewed.) Assessment and Plan Assessment: Assessment Abdominal pain, nausea vomiting and bloody stools, rule out ischemic colitis secondary to patient's history of atrial fibrillation History of hypothyroidism History of hypertension History of hyperlipidemia History of chronic atrial fibrillation/flutter History of coronary disease History of hepatitis C History of CVA History of COPD History of cervical cancer Peripheral last occlusive disease Nephrolithiasis Plan: Plan dated 01/11/2018 The patient seemed to be much more stable than last night. Her blood pressure has improved with fluid resuscitation. Currently on IV Cardizem at 5 mg an hour. She's getting a saline IV at 75 mL an hour. Her heart rhythm is atrial fibrillation with a heart rate of 109. Her abdomen is tender on palpation. He has some mild lower extremity edema. No respiratory issues at all. CT of the abdomen was consistent with colitis of the left colon. White count 13.8 hemoglobin 12.7 hematocrit 38.7 platelet count 138,000. Sodium 140 potassium 3.3 chloride 114 CO2 19 anion gap 7 BUN and creatinine were 23 and 1.40. Lactic acid is down to 1.3 from 2.6. Medications are reviewed. Additional recommendations and suggestions are forthcoming. Chest x-ray is stable. Time with Patient: Greater than 30
[2018-01-11] MEDS ORDERED: CLOPIDOGREL 75 MG TAB PO SCH (09:00)
[2018-01-11] MEDS ORDERED: FUROSEMIDE 20 MG TAB PO SCH (09:00)
[2018-01-11] MEDS: LEVOFLOXACIN 500MG-D5W PMX 500 MG in DEXTROSE/WATER 1 100ML.BAG IVPB SCH (09:59)
[2018-01-11] MEDS: PANTOPRAZOLE 40 MG/10 ML VIAL IVP SCH (10:00)
[2018-01-11] MEDS: POTASSIUM CHLORIDE ER 10 MEQ TAB.ER.PRT PO SCH (10:05)
[2018-01-11] MEDS ORDERED: SODIUM CHLORIDE 0.9% 500 ML IV ONE (12:15)
--- NOTE | 2018-01-11 12:27 | P.PN ---
Subjective Progress Note Date: 01/11/18 This is an 82-year-old female one of Dr. Kirkpatrick with a previous medical history significant for hypertension and hypertensive cardiovascular disease, atrial flutter/fibrillation status post permanent pacemaker placement on xarelto, history of previous CVA, CAD status post microinfarction in the past , PVD status post stents by Dr. Cotton in both lower extremities last one was about 09/03/2015, admission February 2017 for acute kidney injury secondary to aggressive diuresis. Patient is complaining of lower abdominal pain that is severe and feeling that she needs to have a bowel movement but is unable to do that. She has had several episodes of vomiting. Onset of symptoms were yesterday. No fever or chills she denies any diarrhea. She denies any chest pain or shortness of breath. She came into [facility] emergency center by EMS. She was found to be afebrile with stable vital signs, leukocytosis of 14.5, BUN 20 creatinine 1.4 and potassium 3.3. Blood sugar was 130. Amylase 307, lipase 133, troponin was normal. Lactic acid was 2.9. Urinalysis was cloudy, trace blood, nitrate negative, leukoesterase small, bacteria moderate. She had a chest x-ray shows no acute cardiopulmonary process. CT of the abdomen and pelvis without contrast shows diffuse wall thickening of the left colon compared to old exam consistent with nonspecific colitis. She large bowel with air-fluid levels consistent with ileus. No evidence of an abscess. Extensive colonic diverticulosis. Patient was given IV ceftriaxone, Reglan and Flagyl status post 2 L of IV fluid and admitted to the [facility] floor. Patient is nothing by mouth. A consult with Dr. Balbuena requested and repeat abdominal x-rays. 01/11: Patient has been seen by Dr. Balbuena with recommendations to continue antibiotics for suspected ischemic colitis and clear liquid diet. He has ordered CTA of the abdomen and pelvis. Last evening, patient had 2 bloody bowel movements and abdominal pain became severe she was nauseated and had emesis. She had a drop in her blood pressure to systolic of 60 and she was transferred to the intensive care unit. She apparently had one bloody stool in ICU. She has been treated with 2-1/2 L of IV fluids. He has not required vasopressors. Her initial lactic acid was 3.3 now improved to 1.3. She also went into rapid ventricular response A. fib. She is currently in a paced rhythm and rate controlled. Cardiology consult was added and patient is on a Cardizem drip. Is also consult with intensive care management. Objective - Vital Signs Vital signs: Vital Signs Temp 97.9 F 01/11/18 08:00 Pulse 100 01/11/18 09:30 Resp 13 01/11/18 09:30 BP 98/48 01/11/18 09:30 Pulse Ox 92 L 01/11/18 09:30 Intake & Output 01/10/18 01/11/18 01/11/18 18:59 06:59 18:59 Intake Total 2725.167 425 Output Total 1405 150 Balance 1320.167 275 Weight 68.9 kg Intake: IV 525 225 Sodium Chloride 0.9% 1, 525 225 000 ml @ 75 mls/hr IV . [id number] [facility] Rx#:[id number] Intake, IV Titration 2200.167 200 Amount Diltiazem 50 mg In Sodium 0.167 Chloride 0.9% 40 ml @ Per Protocol IV .Q0M [facility] Rx#:[id number] Levofloxacin 500Mg-D5w 100 Pmx 500 mg In Dextrose/ Water 1 100ml.bag @ 100 mls/hr IVPB Q24HR [facility] Rx# :[id number] Magnesium Sulfate-D5w Pmx 100 1 gm In Dextrose/Water 1 100ml.bag @ 100 mls/hr IVPB Q1H [facility] Rx#: [id number] Potassium Chloride 10 meq 100 In Water For Injection 1 100ml.bag @ 100 mls/hr IVPB Q1HR [facility] Rx#: [id number] Sodium Chloride 0.9% 500 2000 ml @ 999 mls/hr IV .Q31M [facility] Rx#:[id number] metroNIDAZOLE-NS PMX 500 100 mg In Saline 1 100ml.bag @ 100 mls/hr IVPB Q8HR [facility] Rx#:[id number] Output: Urine 1405 150 Other: Voiding Method Indwelling Catheter # Voids 1 0 # Bowel Movements 0 0 - Exam General appearance: average body habitus, no acute distress - EENT Eyes: anicteric sclerae, EOMI, PERRLA, no ptosis, no scleral icterus, normal appearance ENT: hearing grossly normal, NA/AT, normal oropharynx, no thrush Ears: bilateral: normal - Neck Neck: no lymphadenopathy, normal ROM, no rigidity, no stridor, no thyromegaly Carotids: bilateral: upstroke normal Thyroid: bilateral: normal size - Respiratory Respiratory: bilateral: diminished, negative: dullness, rales, rhonchi, wheezing , prolonged expiration, prolonged inspiration - Cardiovascular Rhythm: irregularly irregular (permanent pacemaker.) Heart sounds: normal: S1, S2 Abnormal Heart Sounds: systolic murmur, no rub, no click - Gastrointestinal General gastrointestinal: normal bowel sounds, soft, no splenomegaly, generalized tenderness more severe in the lower quadrants. - Integumentary Integumentary: normal, normal turgor - Neurologic Neurologic: CNII-XII intact - Musculoskeletal Musculoskeletal: gait normal, strength equal bilaterally - Psychiatric Psychiatric: A&O x's 3, appropriate affect, intact judgment & insight - Labs CBC & Chem 7: 01/11/18 04:35 01/11/18 04:35 Labs: Abnormal Lab Results - Last 24 Hours (Table) 01/10/18 01/10/18 01/10/18 Range/Units 20:54 21:04 21:04 WBC 16.2 H (3.8-10.6) k/uL RBC 5.47 H (3.80-5.40) m/uL Hgb 16.4 H (11.4-16.0) gm/dL Hct 50.8 H (34.0-46.0) % Plt Count (150-450) k/uL Neutrophils # 13.5 H (1.3-7.7) k/uL PT 14.0 H (9.0-12.0) sec INR 1.5 H (<1.2) Potassium (3.5-5.1) mmol/L Chloride (98-107) mmol/L Carbon Dioxide (22-30) mmol/L BUN (7-17) mg/dL Creatinine (0.52-1.04) mg/dL Glucose (74-99) mg/dL POC Glucose (mg/dL) 105 H (75-99) mg/dL Plasma Lactic Acid Tyler (0.7-2.0) mmol/L Calcium (8.4-10.2) mg/dL Total Protein (6.3-8.2) g/dL Albumin (3.5-5.0) g/dL Urine Appearance (Clear) Urine Protein (Negative) Urine Blood (Negative) Ur Leukocyte Esterase (Negative) Urine RBC (0-5) /hpf Urine WBC (0-5) /hpf Urine Mucus (None) /hpf 01/10/18 01/10/18 01/10/18 Range/Units 21:04 21:45 23:20 WBC (3.8-10.6) k/uL RBC (3.80-5.40) m/uL Hgb (11.4-16.0) gm/dL Hct (34.0-46.0) % Plt Count (150-450) k/uL Neutrophils # (1.3-7.7) k/uL PT (9.0-12.0) sec INR (<1.2) Potassium (3.5-5.1) mmol/L Chloride 111 H (98-107) mmol/L Carbon Dioxide 18 L (22-30) mmol/L BUN 25 H (7-17) mg/dL Creatinine 1.48 H (0.52-1.04) mg/dL Glucose 109 H (74-99) mg/dL POC Glucose (mg/dL) (75-99) mg/dL Plasma Lactic Acid Tyler 2.6 H* (0.7-2.0) mmol/L Calcium 8.3 L (8.4-10.2) mg/dL Total Protein 5.5 L (6.3-8.2) g/dL Albumin 2.9 L (3.5-5.0) g/dL Urine Appearance Turbid H (Clear) Urine Protein 2+ H (Negative) Urine Blood Moderate H (Negative) Ur Leukocyte Esterase Large H (Negative) Urine RBC 97 H (0-5) /hpf Urine WBC >182 H (0-5) /hpf Urine Mucus Moderate H (None) /hpf 01/11/18 01/11/18 Range/Units 04:35 04:35 WBC 13.8 H (3.8-10.6) k/uL RBC (3.80-5.40) m/uL Hgb (11.4-16.0) gm/dL Hct (34.0-46.0) % Plt Count 138 L (150-450) k/uL Neutrophils # 12.0 H (1.3-7.7) k/uL PT (9.0-12.0) sec INR (<1.2) Potassium 3.3 L (3.5-5.1) mmol/L Chloride 114 H (98-107) mmol/L Carbon Dioxide 19 L (22-30) mmol/L BUN 23 H (7-17) mg/dL Creatinine 1.40 H (0.52-1.04) mg/dL Glucose 104 H (74-99) mg/dL POC Glucose (mg/dL) (75-99) mg/dL Plasma Lactic Acid Tyler (0.7-2.0) mmol/L Calcium 7.7 L (8.4-10.2) mg/dL Total Protein (6.3-8.2) g/dL Albumin (3.5-5.0) g/dL Urine Appearance (Clear) Urine Protein (Negative) Urine Blood (Negative) Ur Leukocyte Esterase (Negative) Urine RBC (0-5) /hpf Urine WBC (0-5) /hpf Urine Mucus (None) /hpf Microbiology - Last 24 Hours (Table) 01/09/18 20:15 Blood Culture - Preliminary Blood No Growth after 24 hours 01/09/18 22:02 Urine Culture - Preliminary Urine,Voided Assessment and Plan Plan: 1. Acute colitis, possible ischemic colitis, possible ileus with lactic acidosis that has resolved. Patient made nothing by mouth. Levaquin and Flagyl started. Consult with Dr. Balbuena appreciated. CTA of the abdomen and pelvis ordered. Continue Zofran for nausea and morphine for pain control. Continue IV fluids at 75 mL per hour. 2. Acute GI bleed. Continue to monitor hemoglobin. 2. History of CAD. Continue metoprolol 50 mg orally twice every day. 3. Hypertension and hypertensive cardiovascular disease. Continue lisinopril 5 mg orally once every day, metoprolol 50 mg orally twice every day. 4. Hypothyroidism. Continue Synthroid 50 g orally once every day. 5. PAD post PTBI with stent placement of both lower extremities. Stable. Continue Plavix 6. Atrial fibrillation post-permanent pacemaker placement with episode of RVR. Patient required Cardizem drip. Xarelto on hold. Cardiology consult appreciated. 7. Chronic kidney disease stage III. Monitor kidney function. 8. DVT prophylaxis. Continue with the Xarelto. 9. Gastrointestinal prophylaxis. Protonix. 10. Full code. Impression and plan of care have been directed as dictated by the signing physician. Bette Copeland nurse practitioner acting as scribe for signing physician.
[2018-01-11] MEDS ORDERED: NOREPINEPHRIN 4 MG-0.9% NS PMX 4 MG/250 ML ML IV SCH (12:30)
[2018-01-11] MEDS ORDERED: NOREPINEPHRINE 4 MG in DEXTROSE 5% IN WATER 250 ML IV SCH ×2 (13:00)
--- NOTE | 2018-01-11 13:10 | CONS ---
CONSULTATION This patient's medical records reviewed. She is an 82-year-old female who was admitted on 01/10/1988 with generalized abdominal pain, nausea, vomiting, as well as diarrhea. Patient had some maroon-colored stools. Last night the patient A-team was called in. Patient was on the general floor and A-team was called. Patient was found to be in atrial fibrillation with rapid ventricular response and the patient was subsequently transferred to the intensive care unit. This patient has a history of atrial fibrillation and paroxysmal atrial fibrillation and history of permanent pacemaker. The patient also has a history of peripheral vascular disease with a history of a stent in both lower extremities. The patient has a prior history of CVA. Patient's initial lactic acid level was 2.9, and CT of the abdomen and pelvis without contrast was done which showed diffuse wall thickening of the left colon suggestive of nonspecific colitis. The patient was evaluated by Dr. Balbuena and he has ordered a CT angiogram of the abdomen and pelvis to rule out any ischemic colitis. Patient at present is comfortable. She is not having any chest discomfort and she is not in any respiratory distress. The patient's blood pressure at the time of my examination, was 72/60. Patient heart rate is 70 to 80 per minute. HEENT examination is negative. Neck is supple. There is no increase in jugular venous pressure. Both the carotid pulses are felt. There is no bruit. Chest is symmetrical. HEART: The PMI is not felt. First and second heart sounds are normal. There is no evidence of any murmur. Lungs are clinically clear to auscultation and percussion. Abdomen shows mild generalized tenderness. Bowel sounds are hypoactive. EXTREMITIES: Peripheral pulsations are 1+. The EKG on admission showed normal sinus rhythm with intermittent PVCs. Monitor strip yet last night showed evidence of atrial fibrillation with a rapid ventricular response. This morning the patient is in atrial pacer rhythm. The patient's electrolytes are normal. Creatinine is 1.40. FINAL IMPRESSION: This patient is admitted with abdominal pain and diarrhea. Rule out ischemic colitis. Patient has a history of atrial fibrillation. The patient has been taking Xarelto and Plavix. We will continue the patient on IV fluids and after the patient's blood pressure is stabilized she can undergo CT angiogram of the abdomen and pelvis. The risk of acute kidney injury was explained to the family members. We will continue the patient's fluids and echocardiogram will be obtained. FLIP / JOSSELIN: [id number] /
--- NOTE | 2018-01-11 16:53 | P.PN ---
Subjective Progress Note Date: 01/11/18 Principal diagnosis: Colitis Patient was transferred to the ICU last night because of uncontrolled heart rate /A. fib with hypotension. Patient states her pain is improved today. Vital signs of also improved. She did have a bloody liquidy stool earlier today. CAT scan angiogram of the mesenteric vasculature was ordered. Those results are pending. White blood cell count 13.8. Lactic acid normalized. Objective - Vital Signs Vital signs: Vital Signs Temp 97.7 F 01/11/18 12:00 Pulse 75 01/11/18 15:00 Resp 12 01/11/18 15:00 BP 90/49 01/11/18 15:00 Pulse Ox 93 L 01/11/18 15:00 Intake & Output 01/10/18 01/11/18 01/11/18 18:59 06:59 18:59 Intake Total 2725.167 919.5 Output Total 1405 355 Balance 1320.167 564.5 Weight 68.9 kg Intake: IV 525 475 Sodium Chloride 0.9% 1, 525 475 000 ml @ 100 mls/hr IV . Q10H [facility] Rx#:[id number] Intake, IV Titration 2200.167 444.5 Amount Diltiazem 50 mg In Sodium 0.167 Chloride 0.9% 40 ml @ Per Protocol IV .Q0M [facility] Rx#:[id number] Levofloxacin 500Mg-D5w 100 Pmx 500 mg In Dextrose/ Water 1 100ml.bag @ 100 mls/hr IVPB Q24HR [facility] Rx# :[id number] Magnesium Sulfate-D5w Pmx 100 1 gm In Dextrose/Water 1 100ml.bag @ 100 mls/hr IVPB Q1H [facility] Rx#: [id number] Norepinephrine 4 mg In 9.5 Dextrose 5% in Water 250 ml @ Titrate IV .Q0M [facility] Rx#:[id number] Potassium Chloride 10 meq 235 In Water For Injection 1 100ml.bag @ 100 mls/hr IVPB Q1HR [facility] Rx#: [id number] Sodium Chloride 0.9% 1, 100 000 ml @ 100 mls/hr IV . Q10H [facility] Rx#:[id number] Sodium Chloride 0.9% 500 2000 ml @ 999 mls/hr IV .Q31M [facility] Rx#:[id number] metroNIDAZOLE-NS PMX 500 100 mg In Saline 1 100ml.bag @ 100 mls/hr IVPB Q8HR [facility] Rx#:[id number] Output: Urine 1405 355 Other: Voiding Method Indwelling Catheter Indwelling Catheter # Voids 1 0 # Bowel Movements 0 0 - Exam Abdomen: Soft, mild diffuse tenderness, mild distention - Labs CBC & Chem 7: 01/11/18 04:35 01/11/18 04:35 Labs: Abnormal Lab Results - Last 24 Hours (Table) 01/10/18 01/10/18 01/10/18 Range/Units 20:54 21:04 21:04 WBC 16.2 H (3.8-10.6) k/uL RBC 5.47 H (3.80-5.40) m/uL Hgb 16.4 H (11.4-16.0) gm/dL Hct 50.8 H (34.0-46.0) % Plt Count (150-450) k/uL Neutrophils # 13.5 H (1.3-7.7) k/uL PT 14.0 H (9.0-12.0) sec INR 1.5 H (<1.2) Potassium (3.5-5.1) mmol/L Chloride (98-107) mmol/L Carbon Dioxide (22-30) mmol/L BUN (7-17) mg/dL Creatinine (0.52-1.04) mg/dL Glucose (74-99) mg/dL POC Glucose (mg/dL) 105 H (75-99) mg/dL Plasma Lactic Acid Tyler (0.7-2.0) mmol/L Calcium (8.4-10.2) mg/dL Total Protein (6.3-8.2) g/dL Albumin (3.5-5.0) g/dL Urine Appearance (Clear) Urine Protein (Negative) Urine Blood (Negative) Ur Leukocyte Esterase (Negative) Urine RBC (0-5) /hpf Urine WBC (0-5) /hpf Urine Mucus (None) /hpf 01/10/18 01/10/18 01/10/18 Range/Units 21:04 21:45 23:20 WBC (3.8-10.6) k/uL RBC (3.80-5.40) m/uL Hgb (11.4-16.0) gm/dL Hct (34.0-46.0) % Plt Count (150-450) k/uL Neutrophils # (1.3-7.7) k/uL PT (9.0-12.0) sec INR (<1.2) Potassium (3.5-5.1) mmol/L Chloride 111 H (98-107) mmol/L Carbon Dioxide 18 L (22-30) mmol/L BUN 25 H (7-17) mg/dL Creatinine 1.48 H (0.52-1.04) mg/dL Glucose 109 H (74-99) mg/dL POC Glucose (mg/dL) (75-99) mg/dL Plasma Lactic Acid Tyler 2.6 H* (0.7-2.0) mmol/L Calcium 8.3 L (8.4-10.2) mg/dL Total Protein 5.5 L (6.3-8.2) g/dL Albumin 2.9 L (3.5-5.0) g/dL Urine Appearance Turbid H (Clear) Urine Protein 2+ H (Negative) Urine Blood Moderate H (Negative) Ur Leukocyte Esterase Large H (Negative) Urine RBC 97 H (0-5) /hpf Urine WBC >182 H (0-5) /hpf Urine Mucus Moderate H (None) /hpf 01/11/18 01/11/18 Range/Units 04:35 04:35 WBC 13.8 H (3.8-10.6) k/uL RBC (3.80-5.40) m/uL Hgb (11.4-16.0) gm/dL Hct (34.0-46.0) % Plt Count 138 L (150-450) k/uL Neutrophils # 12.0 H (1.3-7.7) k/uL PT (9.0-12.0) sec INR (<1.2) Potassium 3.3 L (3.5-5.1) mmol/L Chloride 114 H (98-107) mmol/L Carbon Dioxide 19 L (22-30) mmol/L BUN 23 H (7-17) mg/dL Creatinine 1.40 H (0.52-1.04) mg/dL Glucose 104 H (74-99) mg/dL POC Glucose (mg/dL) (75-99) mg/dL Plasma Lactic Acid Tyler (0.7-2.0) mmol/L Calcium 7.7 L (8.4-10.2) mg/dL Total Protein (6.3-8.2) g/dL Albumin (3.5-5.0) g/dL Urine Appearance (Clear) Urine Protein (Negative) Urine Blood (Negative) Ur Leukocyte Esterase (Negative) Urine RBC (0-5) /hpf Urine WBC (0-5) /hpf Urine Mucus (None) /hpf Microbiology - Last 24 Hours (Table) 01/09/18 22:02 Urine Culture - Final Urine,Voided 01/10/18 23:20 Urine Culture - Preliminary Urine,Catheterized 01/09/18 20:15 Blood Culture - Preliminary Blood No Growth after 24 hours Assessment and Plan (1) Colitis Narrative/Plan: Await stool studies. Await final CT angiogram report. Will discuss with Dr. Morgan regarding mesenteric vascular status. Current colitis likely ischemic in origin but related to low flow ischemia rather than a thrombotic or embolic event. Begin clear liquids. Will follow. Current Visit: Yes Status: Acute Code(s): K52.9 - NONINFECTIVE GASTROENTERITIS AND COLITIS, UNSPECIFIED SNOMED Code(s): 00173823
--- NOTE | 2018-01-11 18:15 | CT ---
EXAMINATION TYPE: CT angio abdomen pelvis DATE OF EXAM: 01/11/2018 HISTORY: Recurrent ischemic colitis. CT DLP: 2089mGycm Automated Exposure Control for Dose Reduction was Utilized. CONTRAST: CT scan of the abdomen and pelvis is performed without and with IV Contrast, patient injected with 80 ml mL of Isovue 370. There are 3-D post processed images. COMPARISON: None FINDINGS: The heart appears enlarged. There is infiltrate and atelectasis at the posterior lung bases. Abdomina l aorta is atheromatous. The abdominal aorta is not dilated. There is patency of the common internal and external iliac arteries bilaterally. There is patency of the celiac artery and superior mesenteri c artery. There is bilateral patency of the renal arteries. There is diffuse wall thickening of the d istal transverse colon and the left colon. There is metal artifact from left hip prosthesis. There is some free fluid in the pelvis. There is Myrick catheter in the urinary bladder. There is a degenerati ve first-degree L4-5 spondylolisthesis.There is 25% stenosis at the origin of the celiac artery and s uperior mesenteric artery. There is atherosclerotic plaque at the origin of both renal arteries. 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 This could relate to a chronic dissection. This is at the origin of the inferior mesenteric artery. There is some fat stranding around the descending colon. IMPRESSION: There is left colon Wall thickening and surrounding fat stranding. This is consistent wit h a nonspecific colitis that is worse than last CT scan of 01/09/2018. This could be ischemic colitis. Atherosclerotic vascular disease. There is increase in the fluid and thickening in the posterior lef t paracolic gutter compared to old exam.
[2018-01-12] MEDS: metroNIDAZOLE-NS PMX 500 MG in SALINE 1 100ML.BAG IVPB SCH ×3 (00:11→15:39)
[2018-01-12] MEDS: SODIUM CHLORIDE 0.9% 1,000 ML IV SCH ×2 (02:04→15:37)
[2018-01-12 05:40] LABS: Basophils % (A) 0 %; Eosinophils # (A) 0.1 k/uL (0-0.7); Eosinophils % (A) 1 %; Hypochromasia Slight; Lymphocytes # (A) 1.5 k/uL (1.0-4.8); Lymphocytes % (A) 10 %; MCH 30.2 pg (25.0-35.0); MCHC 31.7 g/dL (31.0-37.0); MCV 95.3 fL (80.0-100.0); Mean Platelet Volume 7.7; Monocytes # (A) 0.5 k/uL (0-1.0); Monocytes % (A) 3 %; Neutrophils # (A) 12.6 k/uL (1.3-7.7); Neutrophils % (A) 85 %; Platelet Count 136 k/uL (150-450); RBC 4.31 m/uL (3.80-5.40); RDW 14.6 % (11.5-15.5); WBC 14.8 k/uL (3.8-10.6)
[2018-01-12 05:47] LABS: Calcium 8.4 mg/dL (8.4-10.2); Magnesium 2.1 mg/dL (1.6-2.3); Phosphorus 2.9 mg/dL (2.5-4.5); Potassium 4.1 mmol/L (3.5-5.1)
[2018-01-12] MEDS ORDERED: DEXTROSE 50%-WATER 50 ML SYRINGE IVP ONE (06:11)
[2018-01-12 06:12] LABS: Glucose,Whole Blood 70 mg/dL (75-99)
[2018-01-12] MEDS: ONDANSETRON 4 MG/2 ML VIAL IVP PRN ×2 (06:26→18:30)
[2018-01-12] MEDS: LEVOTHYROXINE 50 MCG TAB PO SCH (06:32)
[2018-01-12 06:33] LABS: Glucose,Whole Blood 129 mg/dL (75-99)
--- NOTE | 2018-01-12 07:49 | P.PN ---
Subjective Progress Note Date: 01/12/18 Principal diagnosis: Colitis Progress note dated 01/12/2018 82-year-old female who was seen in the emergency department on January 09. She presented to the emergency department with complaints of abdominal pain and vomiting. He was also having some bloody bowel movements. Abdominal pain was described as being very severe. The patient also had some nausea with vomiting. This occurred several times. It seemed to happen after she was eating. No fever or chills. There is no urinary complaints. No chest pain or chest discomfort. No shortness of breath. No neurologic complaints. History is consistent with atrial fibrillation and atrial flutter CAD heart failure COPD CVA hyperlipidemia hypertension liver disease hypothyroidism and peripheral last occlusive disease. The patient also has history of cervical cancer and kidney stones as well as hepatitis C. The patient was seen as an"A "team last night. She was brought to the ICU primarily because of hypotension. She is not requiring any supplemental oxygen. She's got an IV of Cardizem 5 mg an hour and a saline IV at 75 mL an hour. Her current systolic blood pressure is 90. She is awake and alert. Her only complaint today is some tenderness in the abdomen. The patient is currently not receiving any supplemental oxygen. She is still complaining of abdominal pain. She was weaned off the norepinephrine. She is really only minimally better than she did yesterday. Objective - Vital Signs Vital signs: Vital Signs Temp 98.2 F 01/12/18 04:00 Pulse 125 H 01/12/18 07:00 Resp 11 L 01/12/18 07:00 BP 154/86 01/12/18 07:00 Pulse Ox 91 L 01/12/18 07:00 Intake & Output 01/11/18 01/12/18 01/12/18 18:59 06:59 18:59 Intake Total 1434.5 1573.625 100 Output Total 470 755 75 Balance 964.5 818.625 25 Weight 75 kg Intake: IV 875 1200 100 Sodium Chloride 0.9% 1, 875 1200 100 000 ml @ 100 mls/hr IV . Q10H [facility] Rx#:[id number] Intake, IV Titration 559.5 73.625 Amount Levofloxacin 500Mg-D5w 100 Pmx 500 mg In Dextrose/ Water 1 100ml.bag @ 100 mls/hr IVPB Q24HR [facility] Rx# :[id number] Norepinephrine 4 mg In 24.5 73.625 Dextrose 5% in Water 250 ml @ Titrate IV .Q0M [facility] Rx#:[id number] Potassium Chloride 10 meq 235 In Water For Injection 1 100ml.bag @ 100 mls/hr IVPB Q1HR [facility] Rx#: [id number] Sodium Chloride 0.9% 1, 100 000 ml @ 100 mls/hr IV . Q10H [facility] Rx#:[id number] metroNIDAZOLE-NS PMX 500 100 mg In Saline 1 100ml.bag @ 100 mls/hr IVPB Q8HR [facility] Rx#:[id number] Oral 300 Output: Urine 470 755 75 Other: Voiding Method Indwelling Catheter Indwelling Catheter - Exam No acute distress, oriented 3. No supplemental oxygen. HEENT examination is grossly unremarkable. Mucous membranes are moist. No oral lesions. Neck supple. Full range of motion. No adenopathy thyromegaly or neck vein distention. Cardiovascular examination reveals a irregular rhythm and rate. S1-S2 normal. No heart murmur noted. She appears to be in atrial fibrillation. Heart rate about 110 bpm. Lungs reveal clear breath sounds. Her sounds are equal bilaterally. No adventitious lung sounds including wheezes rhonchi or crackles. Abdomen tender on palpation. A few bowel sounds are noted today. Abdomen mildly distended. Extremities are intact. No cyanosis clubbing or edema. Skin is without rash or lesion. Neurologic examination is brief but nonfocal. - Labs CBC & Chem 7: 01/12/18 05:12 01/12/18 05:12 Labs: Abnormal Lab Results - Last 24 Hours (Table) 01/12/18 01/12/18 01/12/18 Range/Units 05:12 05:12 06:10 WBC 14.8 H (3.8-10.6) k/uL Plt Count 136 L (150-450) k/uL Neutrophils # 12.6 H (1.3-7.7) k/uL Chloride 114 H (98-107) mmol/L Carbon Dioxide 16 L (22-30) mmol/L BUN 19 H (7-17) mg/dL Creatinine 1.20 H (0.52-1.04) mg/dL Glucose 73 L (74-99) mg/dL POC Glucose (mg/dL) 70 L (75-99) mg/dL 01/12/18 Range/Units 06:32 WBC (3.8-10.6) k/uL Plt Count (150-450) k/uL Neutrophils # (1.3-7.7) k/uL Chloride (98-107) mmol/L Carbon Dioxide (22-30) mmol/L BUN (7-17) mg/dL Creatinine (0.52-1.04) mg/dL Glucose (74-99) mg/dL POC Glucose (mg/dL) 129 H (75-99) mg/dL Microbiology - Last 24 Hours (Table) 01/09/18 20:15 Blood Culture - Preliminary Blood No Growth after 48 hours 01/09/18 22:02 Urine Culture - Final Urine,Voided 01/10/18 23:20 Urine Culture - Preliminary Urine,Catheterized Assessment and Plan Assessment: Assessment Abdominal pain, nausea vomiting and bloody stools, rule out ischemic colitis secondary to patient's history of atrial fibrillation Hypotension, resolved, patient was weaned off of norepinephrine. History of hypothyroidism History of hypertension History of hyperlipidemia History of chronic atrial fibrillation/flutter History of coronary disease History of hepatitis C History of CVA History of COPD History of cervical cancer Peripheral last occlusive disease Nephrolithiasis Plan: Plan dated 01/11/2018 The patient seemed to be much more stable than last night. Her blood pressure has improved with fluid resuscitation. Currently on IV Cardizem at 5 mg an hour. She's getting a saline IV at 75 mL an hour. Her heart rhythm is atrial fibrillation with a heart rate of 109. Her abdomen is tender on palpation. He has some mild lower extremity edema. No respiratory issues at all. CT of the abdomen was consistent with colitis of the left colon. White count 13.8 hemoglobin 12.7 hematocrit 38.7 platelet count 138,000. Sodium 140 potassium 3.3 chloride 114 CO2 19 anion gap 7 BUN and creatinine were 23 and 1.40. Lactic acid is down to 1.3 from 2.6. Medications are reviewed. Additional recommendations and suggestions are forthcoming. Chest x-ray is stable. Plan dated 01/12/2018 The patient's white count is 14.8 hemoglobin and hematocrit were stable and platelet count 136,000. Sodium 137, potassium 4.1, chlorides 114, CO2 16, anion gap normal, BUN 19, and creatinine 1.20. Chest x-ray shows some bibasilar atelectasis. Microbiology was all negative. Medications are reviewed and seem appropriate including Levaquin and Flagyl. We will continue to follow here in the ICU. The patient may need a follow-up computed tomography scan of the abdomen. The surgeon is following along. Additional recommendations and suggestions are forthcoming. Prognosis is guarded. Critical care time 31 minutes Time with Patient: Greater than 30
--- NOTE | 2018-01-12 08:07 | XR ---
EXAMINATION TYPE: XR chest 1V DATE OF EXAM: 01/12/2018 COMPARISON: 01/11/2018 INDICATION: ICU management. No additional history is provided., Previous history of difficulty breath ing with abnormal prior chest films. TECHNIQUE: Single frontal view of the chest is obtained. FINDINGS: The heart size is normal. The pulmonary vasculature is normal. Suspicious patchy infiltrate at the left base is not as evident. Pacemaker overlies left chest. IMPRESSION: 1. No acute pulmonary process.
[2018-01-12] MEDS: LEVOFLOXACIN 500MG-D5W PMX 500 MG in DEXTROSE/WATER 1 100ML.BAG IVPB SCH (08:47)
[2018-01-12] MEDS: PANTOPRAZOLE 40 MG/10 ML VIAL IVP SCH (08:47)
[2018-01-12] MEDS ORDERED: METOPROLOL TARTRATE 25 MG TAB PO SCH (09:00)
--- NOTE | 2018-01-12 09:12 | P.PN ---
Subjective Progress Note Date: 01/12/18 Principal diagnosis: Colitis Patient feeling nauseated this morning. Says her abdominal pain itself is improved. CT angiogram report noted. There is not a lot of description regarding the takeoff of the SMA and degree of atherosclerosis. She is afebrile. No pressors. She is thirsty. No stool since yesterday. Objective - Vital Signs Vital signs: Vital Signs Temp 98.2 F 01/12/18 08:00 Pulse 95 01/12/18 08:00 Resp 10 L 01/12/18 08:00 BP 159/93 01/12/18 08:00 Pulse Ox 97 01/12/18 08:00 Intake & Output 01/11/18 01/12/18 01/12/18 18:59 06:59 18:59 Intake Total 1434.5 1573.625 100 Output Total 470 755 75 Balance 964.5 818.625 25 Weight 75 kg Intake: IV 875 1200 100 Sodium Chloride 0.9% 1, 875 1200 100 000 ml @ 100 mls/hr IV . Q10H [facility] Rx#:[id number] Intake, IV Titration 559.5 73.625 Amount Levofloxacin 500Mg-D5w 100 Pmx 500 mg In Dextrose/ Water 1 100ml.bag @ 100 mls/hr IVPB Q24HR [facility] Rx# :[id number] Norepinephrine 4 mg In 24.5 73.625 Dextrose 5% in Water 250 ml @ Titrate IV .Q0M [facility] Rx#:[id number] Potassium Chloride 10 meq 235 In Water For Injection 1 100ml.bag @ 100 mls/hr IVPB Q1HR [facility] Rx#: [id number] Sodium Chloride 0.9% 1, 100 000 ml @ 100 mls/hr IV . Q10H [facility] Rx#:[id number] metroNIDAZOLE-NS PMX 500 100 mg In Saline 1 100ml.bag @ 100 mls/hr IVPB Q8HR [facility] Rx#:[id number] Oral 300 Output: Urine 470 755 75 Other: Voiding Method Indwelling Catheter Indwelling Catheter - Exam Abdomen: Soft, mild distention, mild diffuse tenderness improved - Labs CBC & Chem 7: 01/12/18 05:12 01/12/18 05:12 Labs: Abnormal Lab Results - Last 24 Hours (Table) 01/12/18 01/12/18 01/12/18 Range/Units 05:12 05:12 06:10 WBC 14.8 H (3.8-10.6) k/uL Plt Count 136 L (150-450) k/uL Neutrophils # 12.6 H (1.3-7.7) k/uL Chloride 114 H (98-107) mmol/L Carbon Dioxide 16 L (22-30) mmol/L BUN 19 H (7-17) mg/dL Creatinine 1.20 H (0.52-1.04) mg/dL Glucose 73 L (74-99) mg/dL POC Glucose (mg/dL) 70 L (75-99) mg/dL 01/12/18 Range/Units 06:32 WBC (3.8-10.6) k/uL Plt Count (150-450) k/uL Neutrophils # (1.3-7.7) k/uL Chloride (98-107) mmol/L Carbon Dioxide (22-30) mmol/L BUN (7-17) mg/dL Creatinine (0.52-1.04) mg/dL Glucose (74-99) mg/dL POC Glucose (mg/dL) 129 H (75-99) mg/dL Microbiology - Last 24 Hours (Table) 01/09/18 20:15 Blood Culture - Preliminary Blood No Growth after 48 hours 01/09/18 22:02 Urine Culture - Final Urine,Voided 01/10/18 23:20 Urine Culture - Preliminary Urine,Catheterized Assessment and Plan (1) Colitis Narrative/Plan: CAT scan angiogram report is lacking some details. I discussed the case with Dr. Morgan no ulcer from previous peripheral vascular studies. He will evaluate her case today. Keep nothing by mouth given the patient's nausea. May have ice chips. Continue antibiotics. We'll follow closely. Current Visit: Yes Status: Acute Code(s): K52.9 - NONINFECTIVE GASTROENTERITIS AND COLITIS, UNSPECIFIED SNOMED Code(s): 15480652
[2018-01-12] MEDS: POTASSIUM CHLORIDE ER 10 MEQ TAB.ER.PRT PO SCH (09:36)
[2018-01-12] MEDS ORDERED: DILTIAZEM DRIP BOLUS FROM BAG 1 MG SOLN IV ONE (10:27)
[2018-01-12] MEDS: DILTIAZEM 50 MG in SODIUM CHLORIDE 0.9% 40 ML IV SCH (10:41)
--- NOTE | 2018-01-12 12:32 | P.PN ---
Subjective Progress Note Date: 01/12/18 This is an 82-year-old female one of Dr. Kirkpatrick with a previous medical history significant for hypertension and hypertensive cardiovascular disease, atrial flutter/fibrillation status post permanent pacemaker placement on xarelto, history of previous CVA, CAD status post microinfarction in the past , PVD status post stents by Dr. Cotton in both lower extremities last one was about 09/03/2015, admission February 2017 for acute kidney injury secondary to aggressive diuresis. Patient is complaining of lower abdominal pain that is severe and feeling that she needs to have a bowel movement but is unable to do that. She has had several episodes of vomiting. Onset of symptoms were yesterday. No fever or chills she denies any diarrhea. She denies any chest pain or shortness of breath. She came into [facility] by EMS. She was found to be afebrile with stable vital signs, leukocytosis of 14.5, BUN 20 creatinine 1.4 and potassium 3.3. Blood sugar was 130. Amylase 307, lipase 133, troponin was normal. Lactic acid was 2.9. Urinalysis was cloudy, trace blood, nitrate negative, leukoesterase small, bacteria moderate. She had a chest x-ray shows no acute cardiopulmonary process. CT of the abdomen and pelvis without contrast shows diffuse wall thickening of the left colon compared to old exam consistent with nonspecific colitis. She large bowel with air-fluid levels consistent with ileus. No evidence of an abscess. Extensive colonic diverticulosis. Patient was given IV ceftriaxone, Reglan and Flagyl status post 2 L of IV fluid and admitted to the [facility] floor. Patient is nothing by mouth. A consult with Dr. Balbuena requested and repeat abdominal x-rays. 01/11: Patient has been seen by Dr. Balbuena with recommendations to continue antibiotics for suspected ischemic colitis and clear liquid diet. He has ordered CTA of the abdomen and pelvis. Last evening, patient had 2 bloody bowel movements and abdominal pain became severe she was nauseated and had emesis. She had a drop in her blood pressure to systolic of 60 and she was transferred to the intensive care unit. She apparently had one bloody stool in ICU. She has been treated with 2-1/2 L of IV fluids. He has not required vasopressors. Her initial lactic acid was 3.3 now improved to 1.3. She also went into rapid ventricular response A. fib. She is currently in a paced rhythm and rate controlled. Cardiology consult was added and patient is on a Cardizem drip. Is also consult with intensive care management. 01/12: CTA of the abdomen and pelvis showed left colon wall thickening and surrounding fat stranding consistent with nonspecific colitis that is worse than last CT on 01/09/2018. This could be ischemic colitis. Atherosclerotic vascular disease. Increase in fluid and thickening in the posterior left paracolic gutter compared to old exam. Repeat chest x-ray shows no acute findings. White count has increased to 14.8. Hemoglobin is stable at 13. Creatinine is 1.2. Capillary blood glucose running between 70 and 129. She states that she has had some nausea and vomiting and saw Dr. Balbuena this morning and patient will be switched from clears to nothing by mouth. Dr. Balbuena discussing case with Dr. Cotton. Objective - Vital Signs Vital signs: Vital Signs Temp 98.2 F 01/12/18 04:00 Pulse 125 H 01/12/18 07:00 Resp 11 L 01/12/18 07:00 BP 154/86 01/12/18 07:00 Pulse Ox 91 L 01/12/18 07:00 Intake & Output 01/11/18 01/12/18 01/12/18 18:59 06:59 18:59 Intake Total 1434.5 1573.625 100 Output Total 470 755 75 Balance 964.5 818.625 25 Weight 75 kg Intake: IV 875 1200 100 Sodium Chloride 0.9% 1, 875 1200 100 000 ml @ 100 mls/hr IV . Q10H [facility] Rx#:[id number] Intake, IV Titration 559.5 73.625 Amount Levofloxacin 500Mg-D5w 100 Pmx 500 mg In Dextrose/ Water 1 100ml.bag @ 100 mls/hr IVPB Q24HR [facility] Rx# :[id number] Norepinephrine 4 mg In 24.5 73.625 Dextrose 5% in Water 250 ml @ Titrate IV .Q0M [facility] Rx#:[id number] Potassium Chloride 10 meq 235 In Water For Injection 1 100ml.bag @ 100 mls/hr IVPB Q1HR [facility] Rx#: [id number] Sodium Chloride 0.9% 1, 100 000 ml @ 100 mls/hr IV . Q10H [facility] Rx#:[id number] metroNIDAZOLE-NS PMX 500 100 mg In Saline 1 100ml.bag @ 100 mls/hr IVPB Q8HR [facility] Rx#:[id number] Oral 300 Output: Urine 470 755 75 Other: Voiding Method Indwelling Catheter Indwelling Catheter - Exam General appearance: average body habitus, no acute distress - EENT Eyes: anicteric sclerae, EOMI, PERRLA, no ptosis, no scleral icterus, normal appearance ENT: hearing grossly normal, NA/AT, normal oropharynx, no thrush Ears: bilateral: normal - Neck Neck: no lymphadenopathy, normal ROM, no rigidity, no stridor, no thyromegaly Carotids: bilateral: upstroke normal Thyroid: bilateral: normal size - Respiratory Respiratory: bilateral: diminished, negative: dullness, rales, rhonchi, wheezing , prolonged expiration, prolonged inspiration - Cardiovascular Rhythm: irregularly irregular (permanent pacemaker.) Heart sounds: normal: S1, S2 Abnormal Heart Sounds: systolic murmur, no rub, no click - Gastrointestinal General gastrointestinal: normal bowel sounds, soft, no splenomegaly, generalized mild tenderness. - Integumentary Integumentary: normal, normal turgor - Neurologic Neurologic: CNII-XII intact - Musculoskeletal Musculoskeletal: gait normal, strength equal bilaterally - Psychiatric Psychiatric: A&O x's 3, appropriate affect, intact judgment & insight - Labs CBC & Chem 7: 01/12/18 05:12 01/12/18 05:12 Labs: Abnormal Lab Results - Last 24 Hours (Table) 01/12/18 01/12/18 01/12/18 Range/Units 05:12 05:12 06:10 WBC 14.8 H (3.8-10.6) k/uL Plt Count 136 L (150-450) k/uL Neutrophils # 12.6 H (1.3-7.7) k/uL Chloride 114 H (98-107) mmol/L Carbon Dioxide 16 L (22-30) mmol/L BUN 19 H (7-17) mg/dL Creatinine 1.20 H (0.52-1.04) mg/dL Glucose 73 L (74-99) mg/dL POC Glucose (mg/dL) 70 L (75-99) mg/dL 08/15/18 Range/Units 06:32 WBC (3.8-10.6) k/uL Plt Count (150-450) k/uL Neutrophils # (1.3-7.7) k/uL Chloride (98-107) mmol/L Carbon Dioxide (22-30) mmol/L BUN (7-17) mg/dL Creatinine (0.52-1.04) mg/dL Glucose (74-99) mg/dL POC Glucose (mg/dL) 129 H (75-99) mg/dL Microbiology - Last 24 Hours (Table) 01/09/18 20:15 Blood Culture - Preliminary Blood No Growth after 48 hours 01/09/18 22:02 Urine Culture - Final Urine,Voided 01/10/18 23:20 Urine Culture - Preliminary Urine,Catheterized Assessment and Plan Plan: 1. Acute colitis secondary to ischemic colitis, with lactic acidosis. Patient made nothing by mouth. Levaquin and Flagyl started. Consult with Dr. Balbuena appreciated. CTA of the abdomen and pelvis as above. Continue Zofran for nausea and morphine for pain control. Continue IV fluids at 75 mL per hour. 2. Acute GI bleed with stable hemoglobin. Continue to monitor hemoglobin. 3. Hypovolemic shock secondary to acute acute GI bleed requiring IV fluid resuscitation and transferred to the intensive care unit. 4. History of CAD. Continue metoprolol 50 mg orally twice every day. 5. Hypertension and hypertensive cardiovascular disease. Continue lisinopril 5 mg orally once every day, metoprolol 50 mg orally twice every day. 6. Hypothyroidism. Continue Synthroid 50 g orally once every day. 7. PAD post PTBI with stent placement of both lower extremities. Stable. Continue Plavix 8. Atrial fibrillation post-permanent pacemaker placement with episode of RVR. Patient required Cardizem drip. Xarelto on hold. Cardiology consult appreciated. 9. Chronic kidney disease stage III. Monitor kidney function. 10. DVT prophylaxis. Continue with the Xarelto. 11. Gastrointestinal prophylaxis. Protonix. Full code. Discharge plan: To be determined Impression and plan of care have been directed as dictated by the signing physician. Bette Copeland nurse practitioner acting as scribe for signing physician.
--- NOTE | 2018-01-12 14:12 | ECHOF ---
Referral Reason:low bp MEASUREMENTS -------- HEIGHT: 154.9 cm WEIGHT: 68.5 kg BP: 90/50 RVIDd: 2.3 cm (< 3.3) IVSd: 1.0 cm (0.6 - 1.1) LVIDd: 3.4 cm (3.9 - 5.3) LVPWd: 1.0 cm (0.6 - 1.1) IVSs: 1.4 cm LVIDs: 2.2 cm LVPWs: 1.1 cm LA Diam: 2.5 cm (2.7 - 3.8) LAESV Index (A-L): 18.83 ml/m Ao Diam: 3.1 cm (2.0 - 3.7) AV Cusp: 1.9 cm (1.5 - 2.6) MV EXCURSION: 21.258 mm (> 18.000) MV EF SLOPE: 95 mm/s (70 - 150) EPSS: 0.2 cm MV E Saleem: 1.02 m/s MV DecT: 148 ms MV A Saleem: 0.38 m/s MV E/A Ratio: 2.70 RAP: 15.00 mmHg RVSP: 49.99 mmHg FINDINGS -------- Sinus rhythm with extra systolic beats. This was a technically adequate study. The left ventricular size is normal. Left ventricular wall thickness is normal. Overall left vent ricular systolic function is normal with, an EF between 55 - 60 %. The right ventricle is normal in size. Normal LA size by volume 22+/-6 ml/m2. The right atrium is normal in size. There is mild aortic valve sclerosis. The mitral valve leaflets are mildly thickened. Mild mitral annular calcification present. Moderate tricuspid regurgitation present. There is moderate pulmonary hypertension. The right agnes tricular systolic pressure, as measured by Doppler, is 49.99mmHg. Trace/mild (physiologic) pulmonic regurgitation. The aortic root size is normal. The inferior vena cava is dilated with no significant inspiratory collapse which is consistent estima satcy right atrial pressure of >15 mmHg. There is no pericardial effusion. CONCLUSIONS -------- 1. Sinus rhythm with extra systolic beats. 2. This was a technically adequate study. 3. The left ventricular size is normal. 4. Left ventricular wall thickness is normal. 5. Overall left ventricular systolic function is normal with, an EF between 55 - 60 %. 6. The right ventricle is normal in size. 7. Normal LA size by volume 22+/-6 ml/m2. 8. The right atrium is normal in size. 9. There is mild aortic valve sclerosis. 10. The mitral valve leaflets are mildly thickened. 11. Mild mitral annular calcification present. 12. Moderate tricuspid regurgitation present. 13. There is moderate pulmonary hypertension. 14. The right ventricular systolic pressure, as measured by Doppler, is 49.99mmHg. 15. Trace/mild (physiologic) pulmonic regurgitation. 16. The aortic root size is normal. 17. The inferior vena cava is dilated with no significant inspiratory collapse which is consistent es timated right atrial pressure of >15 mmHg. 18. There is no pericardial effusion. AGENCY SERVICE COORDINATOR: Claudia Reyes RDCS
--- NOTE | 2018-01-12 15:21 | P.CRDCN ---
History of Present Illness Consult date: 01/12/18 Chief complaint: Abdominal discomfort History of present illness: This is a pleasant 82-year-old female patient who I was asked to see regarding peripheral arterial disease and mesenteric ischemia. The patient does have a history of peripheral arterial disease where she underwent in August 2015 stenting of the bilateral iliac arteries, beside that she does have history of paroxysmal atrial fibrillation on oral anticoagulation as well as hypertension and dyslipidemia. Beside that she does have history of TIA/CVA. According to her and her daughter, she was in her usual state of health until the day she was brought to the hospital when she developed sudden onset of abdominal discomfort. The patient was sitting on the toilet when she developed a discomfort in the abdomen. She felt that she is going to have a bowel movement but she was unable to. It was associated also with nausea as well as vomiting. No fever and no chills. Subsequently the patient developed bloody diarrhea. She did not have any symptoms of chest pain or chest discomfort or any shortness of breath. During her hospitalization she developed an episode of A. fib with RVR and converted to normal sinus mechanism on Cardizem and drip. The patient was seen by Dr. Balbuena and mesenteric ischemia was suspected. She underwent a CTA of the abdomen and pelvis which I reviewed and that revealed heavily calcified peripheral arterial system as well as aorta at the mesenteric arteries with patent celiac trunk as well as intermediate calcified plaque involving the ostial of the superior mesenteric artery. I could not visualize the inferior mesenteric artery which is likely to be occluded chronically from before. Beside that the CTA revealed very thickened transverse colon consistent with ischemia. The patient continues to have very mild ongoing abdominal discomfort and abdominal tenderness but the abdomen overall seems to be soft. Currently she is nothing by mouth. That anticoagulation with Xarelto as well as Plavix where on hold at that time because of the bloody diarrhea. Beside that the intensive care team as well as the primary care team suspecting possible infection and currently the patient is also receiving antibiotic. The EKG when the patient presented to the hospital revealed sinus mechanism. I reviewed her echocardiogram from today and that revealed normal LV function without any significant valvular abnormalities. Past Medical History Past Medical History: Atrial Fibrillation, Atrial Flutter, Coronary Artery Disease (CAD), Cancer, Heart Failure, COPD, CVA/TIA, Hyperlipidemia, Hypertension, Liver Disease, Thyroid Disorder, Vascular Disorder Additional Past Medical History / Comment(s): hx Kidney Stones, Chronic N/T BILAT LEGS, WITH BLE EDEMA, degenerative arthritis, hx hepatitis C, hx cervical cancer, PVD Last Myocardial Infarction Date:: 2009 History of Any Multi-Drug Resistant Organisms: None Reported Past Surgical History: Appendectomy, Cholecystectomy, Heart Catheterization With Stent, Hysterectomy, Joint Replacement, Pacemaker Additional Past Surgical History / Comment(s): 2-6-17 abd. aortogram, ERCP, 4 cardiac stents, left hip replacement, Past Anesthesia/Blood Transfusion Reactions: Family History of Problems w/ Anesthesia Additional Past Anesthesia/Blood Transfusion Reaction / Comment(s): sister-long time to come out Date of Last Stent Placement:: unknown Type of Cardiac Device: Permanent Pacemaker Device Placement Date:: 2014 Past Psychological History: No Psychological Hx Reported Smoking Status: Former smoker Past Alcohol Use History: Rare Additional Past Alcohol Use History / Comment(s): Patient quit smoking in 2016. She smoked one pack per day for greater than 35 years. No illicit drug use. rare alcohol use. Past Drug Use History: None Reported - Past Family History Son(s) Family Medical History: Cancer Additional Family Medical History / Comment(s): Patient has 3 sons and one has been diagnosed with bladder cancer. Father Family Medical History: COPD (father at age of 89 from COPD/emphysema.) Additional Family Medical History / Comment(s): EMPHYSEMA. Father at age 89 from COPD. Mother Family Medical History: Chest Pain / Angina, Myocardial Infarction (CA) (mother at age of 91 from myocardial infarction) Additional Family Medical History / Comment(s): Mother at age 91 from myocardial infarction. Brother(s) Family Medical History: Cancer Additional Family Medical History / Comment(s): Patient has 2 brothers and one was diagnosed with esophageal cancer with metastatic disease. Daughter(s) Family Medical History: Cancer (patient has 3 daughters one of them was diagnosed with leukemia.) Additional Family Medical History / Comment(s): Patient has 3 daughters and one diagnosed with leukemia. Medications and Allergies Home Medications Medication Instructions Recorded Confirmed Type Levothyroxine Sodium [Synthroid] 50 mcg PO DAILY 11/07/14 01/10/18 History Lisinopril [Zestril] 5 mg PO HS 11/07/14 01/10/18 History Clopidogrel [Plavix] 75 mg PO DAILY #90 tab 09/11/16 01/10/18 Rx Rosuvastatin [Crestor] 20 mg PO HS 10/09/16 01/10/18 History Rivaroxaban [Xarelto] 20 mg PO HS 03/09/17 01/10/18 History Famotidine [Pepcid] 20 mg PO DAILY #0 03/11/17 01/10/18 Rx Furosemide [Lasix] 20 mg PO DAILY #0 03/11/17 01/10/18 Rx Potassium Chloride [K-Tab ER] 10 meq PO DAILY 12/22/17 01/10/18 History Metoprolol Succinate [Toprol Xl] 50 mg PO BID 01/10/18 01/10/18 History traMADol HCL [Ultram] 50 mg PO Q12H PRN 01/10/18 01/10/18 History Allergies Allergy/AdvReac Type Severity Reaction Status Date / Time hydromorphone [From Dilaudid] AdvReac Nausea & Verified 01/10/18 09:49 Vomiting lorazepam [From Ativan] AdvReac Hallucinati Verified 01/10/18 09:49 ons Physical Exam Vitals: Vital Signs Temp Pulse Resp BP Pulse Ox 01/12/18 13:00 122 H 20 134/70 94 L 01/12/18 12:00 112 H 23 149/83 94 L 01/12/18 11:00 98 29 H 163/74 93 L 01/12/18 10:00 86 15 164/74 93 L 01/12/18 09:00 81 22 163/82 94 L 01/12/18 08:00 98.2 F 95 17 159/93 97 01/12/18 07:00 125 H 11 L 154/86 91 L 01/12/18 06:00 98 13 157/79 92 L 01/12/18 05:00 87 14 159/82 94 L 01/12/18 04:00 98.2 F 79 12 145/66 93 L 01/12/18 03:00 86 13 134/74 92 L 01/12/18 02:00 86 25 H 138/68 92 L 01/12/18 01:45 78 8 L 143/77 91 L 01/12/18 01:30 84 11 L 143/77 93 L 01/12/18 01:15 82 10 L 138/63 92 L 01/12/18 01:00 81 19 138/63 93 L 01/12/18 00:45 79 18 133/72 91 L 01/12/18 00:30 82 16 133/72 93 L 01/12/18 00:15 82 14 144/68 94 L 01/12/18 00:00 98.9 F 78 15 127/63 93 L 01/11/18 23:45 79 22 127/63 93 L 01/11/18 23:30 80 12 119/59 91 L 01/11/18 23:28 80 22 115/60 92 L 01/11/18 23:15 81 14 115/60 91 L 01/11/18 23:00 80 13 137/69 92 L 01/11/18 22:45 84 15 76/53 92 L 01/11/18 22:30 82 15 130/60 92 L 01/11/18 22:15 80 32 H 125/60 91 L 01/11/18 22:00 78 16 125/60 92 L 01/11/18 21:00 80 20 119/56 93 L 01/11/18 20:00 97.9 F 87 22 121/66 96 01/11/18 19:00 81 13 97/60 94 L 01/11/18 18:30 82 30 H 103/60 93 L 01/11/18 18:00 72 16 111/60 96 01/11/18 17:30 75 21 01/11/18 17:00 84 30 H 114/60 94 L 01/11/18 16:30 79 21 97/55 92 L 01/11/18 16:18 97.7 F 80 28 H 01/11/18 15:30 74 12 91/50 93 L Intake and Output 01/12/18 01/12/18 01/12/18 06:59 14:59 22:59 Intake Total 800 700 Output Total 505 375 Balance 295 325 Intake: IV 800 500 Sodium Chloride 0.9% 1, 800 500 000 ml @ 100 mls/hr IV . Q10H [facility] Rx#:[id number] Intake, IV Titration 200 Amount Levofloxacin 500Mg-D5w 100 Pmx 500 mg In Dextrose/ Water 1 100ml.bag @ 100 mls/hr IVPB Q24HR [facility] Rx# :[id number] metroNIDAZOLE-NS PMX 500 100 mg In Saline 1 100ml.bag @ 100 mls/hr IVPB Q8HR [facility] Rx#:[id number] Output: Urine 505 375 Other: Voiding Method Indwelling Catheter # Bowel Movements 1 Weight 75 kg - Constitutional General appearance: no acute distress - Respiratory Respiratory: bilateral: CTA - Cardiovascular Rhythm: regular Heart sounds: normal: S1, S2 Results 01/12/18 05:12 01/12/18 05:12 CBC 01/12/18 Range/Units 05:12 WBC 14.8 H (3.8-10.6) k/uL RBC 4.31 (3.80-5.40) m/uL Hgb 13.0 (11.4-16.0) gm/dL Hct 41.0 (34.0-46.0) % Plt Count 136 L (150-450) k/uL Comprehensive Metabolic Panel 01/12/18 Range/Units 05:12 Sodium 137 (137-145) mmol/L Potassium 4.1 (3.5-5.1) mmol/L Chloride 114 H (98-107) mmol/L Carbon Dioxide 16 L (22-30) mmol/L BUN 19 H (7-17) mg/dL Creatinine 1.20 H (0.52-1.04) mg/dL Glucose 73 L (74-99) mg/dL Calcium 8.4 (8.4-10.2) mg/dL Current Medications Generic Name Dose Route Start Last Admin Trade Name Freq PRN Reason Stop Dose Admin Sodium Chloride 1,000 mls @ 100 mls/hr 01/10/18 00:15 01/12/18 02:04 Saline 0.9% IV 100 mls/hr .Q10H [facility] Administration Levofloxacin 500 mg/ IV 100 mls @ 100 mls/hr 01/10/18 09:30 01/12/18 08:47 Solution IVPB 100 mls/hr Q24HR [facility] Administration Metronidazole 500 mg/ IV 100 mls @ 100 mls/hr 01/10/18 09:30 01/12/18 08:47 Solution IVPB 100 mls/hr Q8HR [facility] Administration Norepinephrine Bitartrate 4 mg 250 mls @ 0 mls/hr 01/11/18 13:00 01/11/18 22: 42 / Dextrose/Water IV 0 mcg/min .Q0M [facility] 0 mls/hr Titration Protocol Titrate Diltiazem HCl 50 mg/ Sodium 50 mls @ 5 mls/hr 01/12/18 10:30 01/12/18 10:41 Chloride IV 5 mg/hr .Q10H [facility] 5 mls/hr Administration 5 MG/HR Levothyroxine Sodium 50 mcg 01/11/18 06:30 01/12/18 06:32 Synthroid PO 50 mcg DAILY@0630 [facility] Administration Miscellaneous Information 1 each 01/11/18 06:21 Potassium Per Protocol MISCELLANE DAILY PRN Per Protocol Protocol Morphine Sulfate 4 mg 01/10/18 00:05 01/11/18 03:04 Morphine Sulfate (Inj) IV 4 mg Q4HR PRN Administration Severe Pain Naloxone HCl 0.2 mg 01/10/18 00:05 Narcan IV Q2M PRN Opioid Reversal Ondansetron HCl 4 mg 01/10/18 00:05 01/12/18 06:26 Zofran IVP 4 mg Q8HR PRN Administration Nausea And Vomiting Pantoprazole Sodium 40 mg 01/11/18 09:00 01/12/18 08:47 Protonix IVP 40 mg DAILY [facility] Administration Potassium Chloride 10 meq 01/11/18 09:00 01/11/18 10:05 K-Dur 10 PO Not Given DAILY [facility] Tramadol HCl 50 mg 01/10/18 14:50 01/10/18 21:14 Ultram PO 50 mg Q12H PRN Administration Pain Intake and Output 01/12/18 01/12/18 01/12/18 06:59 14:59 22:59 Intake Total 800 700 Output Total 505 375 Balance 295 325 Intake: IV 800 500 Sodium Chloride 0.9% 1, 800 500 000 ml @ 100 mls/hr IV . Q10H [facility] Rx#:[id number] Intake, IV Titration 200 Amount Levofloxacin 500Mg-D5w 100 Pmx 500 mg In Dextrose/ Water 1 100ml.bag @ 100 mls/hr IVPB Q24HR [facility] Rx# :[id number] metroNIDAZOLE-NS PMX 500 100 mg In Saline 1 100ml.bag @ 100 mls/hr IVPB Q8HR [facility] Rx#:[id number] Output: Urine 505 375 Other: Voiding Method Indwelling Catheter # Bowel Movements 1 Weight 75 kg 01/12/18 05:12 01/12/18 05:12 Assessment and Plan Assessment: Assessment #1 sudden onset of abdominal discomfort associated with bloody stool. The clinical picture is likely consistent with ischemic colitis. #2 peripheral arterial disease documented by peripheral angiogram in the past. #3 paroxysmal atrial fibrillation and the patient now is in normal sinus mechanism #4 hypertension #5 dyslipidemia Plan #1 the patient's clinical picture is likely consistent with ischemic colitis. The etiology either severe atherosclerosis which is documented by the CTA of the abdomen and pelvis, or because of embolic event given her history of paroxysmal atrial fibrillation. #2 the patient does have intermediate plaque involving the ostial superior mesenteric artery. The inferior mesentery artery was not visualized and likely to be occluded. #3 I would recommend continuing the patient on Cardizem if she is still nothing by mouth. Switch her to Cardizem by mouth down the line. #4 resume oral anticoagulation once she is not having any bloody stool and once we know for sure that she is not going to have any surgery on the abdomen #5 I would recommend a conservative medical approach at this point of time. If the patient continues to have discomfort we might consider proceeding with an abdominal aortogram to evaluate her mesenteric arteries with possible intervention on the superior mesenteric artery #6 continue monitor the hemoglobin and the kidney function #7 the echocardiogram was reviewed and discussed above. It did show normal LV function #8 follow-up with the patient. Thank you for allowing us participate in her care and we will continue following up with the patient
--- NOTE | 2018-01-12 19:56 | PN ---
PROGRESS NOTE This patient has remained stable over the last 24 hours. As far as cardiac-ernandez concerns, patient goes in and out of atrial fibrillation. She continues to have abdominal pain, but hemodynamically patient is stable. Heart rate varies between 80-120 per minute. Blood pressure is 134/70 mmHg. HEART: S1 and S2 normal. Lungs are clinically clear to auscultation and percussion. The patient has a urine output of about 400-500 mL per shift. The patient continues to have some abdominal discomfort. Dr. Cotton is going to evaluate for ischemic bowel. We will start the patient on Cardizem drip to keep the heart rate under control. MMODL / IJN: [id number] /
[2018-01-13] MEDS: SODIUM CHLORIDE 0.9% 1,000 ML IV SCH ×2 (00:41→10:53)
[2018-01-13] MEDS: metroNIDAZOLE-NS PMX 500 MG in SALINE 1 100ML.BAG IVPB SCH ×4 (00:41→23:48)
[2018-01-13] MEDS: MORPHINE SULFATE 4 MG/ML SYRINGE IV PRN ×2 (01:04→21:56)
[2018-01-13] MEDS: ONDANSETRON 4 MG/2 ML VIAL IVP PRN ×3 (02:00→21:57)
[2018-01-13] MEDS: DILTIAZEM 50 MG in SODIUM CHLORIDE 0.9% 40 ML IV SCH ×3 (03:45→23:57)
[2018-01-13 04:53] LABS: Basophils % (A) 0 %; Eosinophils % (A) 0 %; HCT 40.2 % (34.0-46.0); Lymphocytes # (A) 1.2 k/uL (1.0-4.8); Lymphocytes % (A) 10 %; MCH 29.9 pg (25.0-35.0); MCHC 32.3 g/dL (31.0-37.0); MCV 92.6 fL (80.0-100.0); Mean Platelet Volume 7.7; Monocytes # (A) 0.4 k/uL (0-1.0); Monocytes % (A) 3 %; Neutrophils # (A) 10.8 k/uL (1.3-7.7); Neutrophils % (A) 86 %; Platelet Count 154 k/uL (150-450); RBC 4.34 m/uL (3.80-5.40); RDW 14.8 % (11.5-15.5); WBC 12.6 k/uL (3.8-10.6)
[2018-01-13 04:57] LABS: Calcium 8.2 mg/dL (8.4-10.2); Magnesium 1.7 mg/dL (1.6-2.3); Phosphorus 2.3 mg/dL (2.5-4.5); Potassium 3.5 mmol/L (3.5-5.1)
[2018-01-13] MEDS ORDERED: Magnesium Replacement Protocol 1 EACH MISC MISCELLANE PRN (05:13)
[2018-01-13] MEDS: MAGNESIUM SULFATE-D5W PMX 1 GM in DEXTROSE/WATER 1 100ML.BAG IVPB SCH ×2 (06:03→09:22)
[2018-01-13] MEDS: LEVOTHYROXINE 50 MCG TAB PO SCH (06:35)
[2018-01-13] MEDS: POTASSIUM CHLORIDE ER 20 MEQ TAB.ER PO SCH ×2 (06:36→09:23)
--- NOTE | 2018-01-13 07:17 | P.PN ---
Subjective Progress Note Date: 01/13/18 Principal diagnosis: Colitis Progress note dated 01/12/2018 82-year-old female who was seen in the emergency department on January 09. She presented to the emergency department with complaints of abdominal pain and vomiting. He was also having some bloody bowel movements. Abdominal pain was described as being very severe. The patient also had some nausea with vomiting. This occurred several times. It seemed to happen after she was eating. No fever or chills. There is no urinary complaints. No chest pain or chest discomfort. No shortness of breath. No neurologic complaints. History is consistent with atrial fibrillation and atrial flutter CAD heart failure COPD CVA hyperlipidemia hypertension liver disease hypothyroidism and peripheral last occlusive disease. The patient also has history of cervical cancer and kidney stones as well as hepatitis C. The patient was seen as an"A "team last night. She was brought to the ICU primarily because of hypotension. She is not requiring any supplemental oxygen. She's got an IV of Cardizem 5 mg an hour and a saline IV at 75 mL an hour. Her current systolic blood pressure is 90. She is awake and alert. Her only complaint today is some tenderness in the abdomen. The patient is currently not receiving any supplemental oxygen. She is still complaining of abdominal pain. She was weaned off the norepinephrine. She is really only minimally better than she did yesterday. Progress note dated 01/13/2018 82-year-old female admitted with a diagnosis of colitis and possible sepsis. Patient remains on an IV of saline at 100 mL an hour and is on a Cardizem drip at 5 mg an hour. She is in atrial fibrillation with a rapid ventricular response. Heart rate is 130. She still having abdominal discomfort. She is maybe a bit better. The patient denies any fever or chills. No chest pain or chest discomfort. Not practically short of breath or anything like that. Her most recent chest x-ray shows a bit of fluid overload. She's got some very mild interstitial edema some small amounts of fluid in the fissure on the right and small bilateral pleural effusions. Her white count is 12.6 hemoglobin and hematocrit and platelet count all normal. Sodium 138 potassium 3.5 chloride 1: 15 CO2 16 anion gap is 7 BUN and creatinine are 13 and 1.0. This is consistent with a non-anion gap hyperchloremic metabolic acidosis. Microbiology is currently on negative. Clostridium difficile studies were negative and stools were positive for blood. Objective - Vital Signs Vital signs: Vital Signs Temp 97.4 F L 01/13/18 04:00 Pulse 93 01/13/18 07:00 Resp 12 01/13/18 07:00 BP 135/76 01/13/18 07:00 Pulse Ox 93 L 01/13/18 07:00 Intake & Output 01/12/18 01/13/18 01/13/18 18:59 06:59 18:59 Intake Total 1385 1515 Output Total 755 855 Balance 630 660 Weight 75 kg 76.1 kg Intake: IV 1050 1430 Diltiazem 50 mg In Sodium 30 Chloride 0.9% 40 ml @ 5 MG/HR 5 mls/hr IV .Q10H [facility] Rx#:[id number] Sodium Chloride 0.9% 1, 1050 1300 000 ml @ 100 mls/hr IV . Q10H [facility] Rx#:[id number] metroNIDAZOLE-NS PMX 500 100 mg In Saline 1 100ml.bag @ 100 mls/hr IVPB Q8HR [facility] Rx#:[id number] Intake, IV Titration 335 85 Amount Diltiazem 50 mg In Sodium 35 85 Chloride 0.9% 40 ml @ 5 MG/HR 5 mls/hr IV .Q10H [facility] Rx#:[id number] Levofloxacin 500Mg-D5w 100 Pmx 500 mg In Dextrose/ Water 1 100ml.bag @ 100 mls/hr IVPB Q24HR [facility] Rx# :[id number] metroNIDAZOLE-NS PMX 500 200 mg In Saline 1 100ml.bag @ 100 mls/hr IVPB Q8HR [facility] Rx#:[id number] Output: Urine 755 855 Other: Voiding Method Indwelling Catheter Indwelling Catheter # Bowel Movements 1 2 - Exam No acute distress, oriented 3. No supplemental oxygen. HEENT examination is grossly unremarkable. Mucous membranes are moist. No oral lesions. Neck supple. Full range of motion. No adenopathy thyromegaly or neck vein distention. Cardiovascular examination reveals a irregular rhythm and rate. S1-S2 normal. No heart murmur noted. She appears to be in atrial fibrillation. Heart rate about 130 bpm. Lungs reveal mostly clear breath sounds. Her sounds are equal bilaterally. There are a few scattered crackles. No wheezes or rhonchi. Abdomen tender on palpation. A few bowel sounds are noted today. Abdomen mildly distended. Extremities are intact. No cyanosis clubbing or edema. Skin is without rash or lesion. Neurologic examination is brief but nonfocal. - Labs CBC & Chem 7: 01/13/18 04:04 01/13/18 04:04 Labs: Abnormal Lab Results - Last 24 Hours (Table) 01/12/18 01/13/18 01/13/18 Range/Units 11:50 04:04 04:04 WBC 12.6 H (3.8-10.6) k/uL Neutrophils # 10.8 H (1.3-7.7) k/uL Chloride 115 H (98-107) mmol/L Carbon Dioxide 16 L (22-30) mmol/L Calcium 8.2 L (8.4-10.2) mg/dL Phosphorus 2.3 L (2.5-4.5) mg/dL Stool Occult Blood Positive H (Negative) Microbiology - Last 24 Hours (Table) 01/12/18 20:16 Stool Culture - Preliminary Stool 01/09/18 20:15 Blood Culture - Preliminary Blood No Growth after 72 hours 01/10/18 23:20 Urine Culture - Final Urine,Catheterized Assessment and Plan Assessment: Assessment Abdominal pain, nausea vomiting and bloody stools, rule out ischemic colitis secondary to patient's history of atrial fibrillation Hypotension, resolved, patient was weaned off of norepinephrine Atrial fibrillation with rapid ventricular response History of hypothyroidism History of hypertension History of hyperlipidemia History of chronic atrial fibrillation/flutter History of coronary disease History of hepatitis C History of CVA History of COPD History of cervical cancer Peripheral last occlusive disease Nephrolithiasis Plan: Plan dated 01/11/2018 The patient seemed to be much more stable than last night. Her blood pressure has improved with fluid resuscitation. Currently on IV Cardizem at 5 mg an hour. She's getting a saline IV at 75 mL an hour. Her heart rhythm is atrial fibrillation with a heart rate of 109. Her abdomen is tender on palpation. He has some mild lower extremity edema. No respiratory issues at all. CT of the abdomen was consistent with colitis of the left colon. White count 13.8 hemoglobin 12.7 hematocrit 38.7 platelet count 138,000. Sodium 140 potassium 3.3 chloride 114 CO2 19 anion gap 7 BUN and creatinine were 23 and 1.40. Lactic acid is down to 1.3 from 2.6. Medications are reviewed. Additional recommendations and suggestions are forthcoming. Chest x-ray is stable. Plan dated 01/12/2018 The patient's white count is 14.8 hemoglobin and hematocrit were stable and platelet count 136,000. Sodium 137, potassium 4.1, chlorides 114, CO2 16, anion gap normal, BUN 19, and creatinine 1.20. Chest x-ray shows some bibasilar atelectasis. Microbiology was all negative. Medications are reviewed and seem appropriate including Levaquin and Flagyl. We will continue to follow here in the ICU. The patient may need a follow-up computed tomography scan of the abdomen. The surgeon is following along. Additional recommendations and suggestions are forthcoming. Prognosis is guarded. Critical care time 31 minutes Plan dated 01/13/2018 The patient remains in atrial fibrillation with rapid ventricular response. This is despite being on Cardizem at 5 mg an hour. Her pressure has stabilized a bit. The patient has developed a non-anion gap hyperchloremic metabolic acidosis. Microbiology is negative. Chest x-ray show some very mild fluid overload with some interstitial edema fluid in the fissures and small pleural effusions. Clostridium difficile studies were negative and stools were positive for occult blood. We will continue to follow. Prognosis is guarded. No additional recommendations are made. Critical care time 32 minutes Time with Patient: Greater than 30
--- NOTE | 2018-01-13 08:11 | XR ---
EXAMINATION TYPE: XR chest 1V DATE OF EXAM: 01/13/2018 HISTORY: Shortness of breath. COMPARISON: January 12, 2018 TECHNIQUE: Single view of the chest is submitted. FINDINGS: Demonstrated are scattered senescent parenchymal change. There is no evidence for focal infiltrate. The heart is stable. Pulmonary venous congestion without overt failure. Hilar and mediastinal structures are within normal limits. Degenerative changes are seen of the dorsal spine. IMPRESSION: 1. Pulmonary venous congestion without overt failure.
[2018-01-13] MEDS: LEVOFLOXACIN 500MG-D5W PMX 500 MG in DEXTROSE/WATER 1 100ML.BAG IVPB SCH (09:23)
[2018-01-13] MEDS: PANTOPRAZOLE 40 MG/10 ML VIAL IVP SCH (09:24)
[2018-01-13] MEDS: POTASSIUM CHLORIDE ER 10 MEQ TAB.ER.PRT PO SCH (09:25)
--- NOTE | 2018-01-13 11:06 | PN ---
PROGRESS NOTE This patient was admitted with abdominal pain. She has been consider as ischemic colitis. She is improved. She did have a bowel movement. Today her pain is improved. The patient goes in and out of the atrial fibrillation. The patient currently is off the anticoagulant in view of the possibility of ischemic colitis from the atrial fibrillation. I would recommend to at least consider IV heparin if it is okay with Dr. Balbuena until she is ready for oral anticoagulant. The patient's vital signs remain stable with the heart rate of 90 to 100. Blood pressure is 129/69 mmHg. Oxygen saturation is normal. First and second heart sounds are normal. Lungs are clear to auscultation and percussion. Patient's electrolytes are normal and creatinine is 1.0. We will continue the patient on Cardizem drip. MMODL / IJN: [id number] /
--- NOTE | 2018-01-13 15:09 | P.PN ---
Subjective Progress Note Date: 01/13/18 This is an 82-year-old female one of Dr. Kirkpatrick with a previous medical history significant for hypertension and hypertensive cardiovascular disease, atrial flutter/fibrillation status post permanent pacemaker placement on xarelto, history of previous CVA, CAD status post microinfarction in the past , PVD status post stents by Dr. Cotton in both lower extremities last one was about 09/03/2015, admission February 2017 for acute kidney injury secondary to aggressive diuresis. Patient is complaining of lower abdominal pain that is severe and feeling that she needs to have a bowel movement but is unable to do that. She has had several episodes of vomiting. Onset of symptoms were yesterday. No fever or chills she denies any diarrhea. She denies any chest pain or shortness of breath. She came into [facility] emergency center by EMS. She was found to be afebrile with stable vital signs, leukocytosis of 14.5, BUN 20 creatinine 1.4 and potassium 3.3. Blood sugar was 130. Amylase 307, lipase 133, troponin was normal. Lactic acid was 2.9. Urinalysis was cloudy, trace blood, nitrate negative, leukoesterase small, bacteria moderate. She had a chest x-ray shows no acute cardiopulmonary process. CT of the abdomen and pelvis without contrast shows diffuse wall thickening of the left colon compared to old exam consistent with nonspecific colitis. She large bowel with air-fluid levels consistent with ileus. No evidence of an abscess. Extensive colonic diverticulosis. Patient was given IV ceftriaxone, Reglan and Flagyl status post 2 L of IV fluid and admitted to the [facility] floor. Patient is nothing by mouth. A consult with Dr. Balbuena requested and repeat abdominal x-rays. 01/11: Patient has been seen by Dr. Balbuena with recommendations to continue antibiotics for suspected ischemic colitis and clear liquid diet. He has ordered CTA of the abdomen and pelvis. Last evening, patient had 2 bloody bowel movements and abdominal pain became severe she was nauseated and had emesis. She had a drop in her blood pressure to systolic of 60 and she was transferred to the intensive care unit. She apparently had one bloody stool in ICU. She has been treated with 2-1/2 L of IV fluids. He has not required vasopressors. Her initial lactic acid was 3.3 now improved to 1.3. She also went into rapid ventricular response A. fib. She is currently in a paced rhythm and rate controlled. Cardiology consult was added and patient is on a Cardizem drip. Is also consult with intensive care management. 01/12: CTA of the abdomen and pelvis showed left colon wall thickening and surrounding fat stranding consistent with nonspecific colitis that is worse than last CT on 01/09/2018. This could be ischemic colitis. Atherosclerotic vascular disease. Increase in fluid and thickening in the posterior left paracolic gutter compared to old exam. Repeat chest x-ray shows no acute findings. White count has increased to 14.8. Hemoglobin is stable at 13. Creatinine is 1.2. Capillary blood glucose running between 70 and 129. She states that she has had some nausea and vomiting and saw Dr. Balbuena this morning and patient will be switched from clears to nothing by mouth. Dr. Balbuena discussing case with Dr. Cotton. 01/13: Patient remains in the intensive care unit. Heart rate is running in the 1 teens as paced atrial fibrillation. Patient had vomiting continued until last evening. She tolerated clear liquids for dinner and for breakfast this morning. She denies having any nausea at this time. She has had a bowel movement. Myrick catheter in place. Anticipate patient is ready for transfer out of the intensive care unit. She is on a Cardizem drip. Abdominal tenderness to the left lower quadrant today. Objective - Vital Signs Vital signs: Vital Signs Temp 97.4 F L 01/13/18 04:00 Pulse 93 01/13/18 07:00 Resp 12 01/13/18 07:00 BP 135/76 01/13/18 07:00 Pulse Ox 93 L 01/13/18 07:00 Intake & Output 01/12/18 01/13/18 01/13/18 18:59 06:59 18:59 Intake Total 1385 1515 Output Total 755 855 Balance 630 660 Weight 75 kg 76.1 kg Intake: IV 1050 1430 Diltiazem 50 mg In Sodium 30 Chloride 0.9% 40 ml @ 5 MG/HR 5 mls/hr IV .Q10H [facility] Rx#:[id number] Sodium Chloride 0.9% 1, 1050 1300 000 ml @ 100 mls/hr IV . Q10H [facility] Rx#:[id number] metroNIDAZOLE-NS PMX 500 100 mg In Saline 1 100ml.bag @ 100 mls/hr IVPB Q8HR [facility] Rx#:[id number] Intake, IV Titration 335 85 Amount Diltiazem 50 mg In Sodium 35 85 Chloride 0.9% 40 ml @ 5 MG/HR 5 mls/hr IV .Q10H [facility] Rx#:[id number] Levofloxacin 500Mg-D5w 100 Pmx 500 mg In Dextrose/ Water 1 100ml.bag @ 100 mls/hr IVPB Q24HR [facility] Rx# :[id number] metroNIDAZOLE-NS PMX 500 200 mg In Saline 1 100ml.bag @ 100 mls/hr IVPB Q8HR [facility] Rx#:[id number] Output: Urine 755 855 Other: Voiding Method Indwelling Catheter Indwelling Catheter # Bowel Movements 1 2 - Exam General appearance: average body habitus, no acute distress - EENT Eyes: anicteric sclerae, EOMI, PERRLA, no ptosis, no scleral icterus, normal appearance ENT: hearing grossly normal, NA/AT, normal oropharynx, no thrush Ears: bilateral: normal - Neck Neck: no lymphadenopathy, normal ROM, no rigidity, no stridor, no thyromegaly Carotids: bilateral: upstroke normal Thyroid: bilateral: normal size - Respiratory Respiratory: bilateral: diminished, negative: dullness, rales, rhonchi, wheezing , prolonged expiration, prolonged inspiration - Cardiovascular Rhythm: irregularly irregular (permanent pacemaker.) Heart sounds: normal: S1, S2 Abnormal Heart Sounds: systolic murmur, no rub, no click - Gastrointestinal General gastrointestinal: normal bowel sounds, soft, no splenomegaly, generalized mild tenderness to left lower quadrant. - Integumentary Integumentary: normal, normal turgor - Neurologic Neurologic: CNII-XII intact - Musculoskeletal Musculoskeletal: gait normal, strength equal bilaterally - Psychiatric Psychiatric: A&O x's 3, appropriate affect, intact judgment & insight - Labs CBC & Chem 7: 01/13/18 04:04 01/13/18 04:04 Labs: Abnormal Lab Results - Last 24 Hours (Table) 01/12/18 01/13/18 01/13/18 Range/Units 11:50 04:04 04:04 WBC 12.6 H (3.8-10.6) k/uL Neutrophils # 10.8 H (1.3-7.7) k/uL Chloride 115 H (98-107) mmol/L Carbon Dioxide 16 L (22-30) mmol/L Calcium 8.2 L (8.4-10.2) mg/dL Phosphorus 2.3 L (2.5-4.5) mg/dL Stool Occult Blood Positive H (Negative) Microbiology - Last 24 Hours (Table) 01/12/18 20:16 Stool Culture - Preliminary Stool 01/09/18 20:15 Blood Culture - Preliminary Blood No Growth after 72 hours 01/10/18 23:20 Urine Culture - Final Urine,Catheterized Assessment and Plan Plan: 1. Acute colitis secondary to ischemic colitis, with lactic acidosis. Patient made nothing by mouth. Levaquin and Flagyl started. Consult with Dr. Balbuena appreciated. CTA of the abdomen and pelvis as above. Continue Zofran for nausea and morphine for pain control. Continue IV fluids at 100 mL per hour. 2. Acute GI bleed with stable hemoglobin. Continue to monitor hemoglobin. 3. Hypovolemic shock secondary to acute acute GI bleed requiring IV fluid resuscitation and transferred to the intensive care unit. No vasopressors. 4. History of CAD. Continue metoprolol 50 mg orally twice every day. 5. Hypertension and hypertensive cardiovascular disease. Continue lisinopril 5 mg orally once every day, metoprolol 50 mg orally twice every day. 6. Hypothyroidism. Continue Synthroid 50 g orally once every day. 7. PAD post PTBI with stent placement of both lower extremities. Stable. Continue Plavix 8. Atrial fibrillation post-permanent pacemaker placement with episode of RVR. Patient required Cardizem drip. Xarelto on hold. Cardiology consult appreciated. 9. Chronic kidney disease stage III. Monitor kidney function. 10. DVT prophylaxis. Continue with the Xarelto. 11. Gastrointestinal prophylaxis. Protonix. Full code. Discharge plan: To be determined. PT and OT to evaluate patient. She lives at home with her daughter. Impression and plan of care have been directed as dictated by the signing physician. Bette Copeland nurse practitioner acting as scribe for signing physician.
--- NOTE | 2018-01-13 15:34 | P.PN ---
Subjective Progress Note Date: 01/13/18 Principal diagnosis: Colitis Patient states she feels better today. She is hungry. Her nausea has improved. She is afebrile. White blood cell count decreased to 12.6. Objective - Vital Signs Vital signs: Vital Signs Temp 98.3 F 01/13/18 12:00 Pulse 92 01/13/18 15:00 Resp 11 L 01/13/18 15:25 BP 139/73 01/13/18 15:00 Pulse Ox 96 01/13/18 15:00 Intake & Output 01/12/18 01/13/18 01/13/18 18:59 06:59 18:59 Intake Total 1385 1515 1190 Output Total 755 855 510 Balance 630 660 680 Weight 75 kg 76.1 kg Intake: IV 1050 1430 940 Diltiazem 50 mg In Sodium 30 40 Chloride 0.9% 40 ml @ 5 MG/HR 5 mls/hr IV .Q10H [facility] Rx#:[id number] Sodium Chloride 0.9% 1, 1050 1300 800 000 ml @ 100 mls/hr IV . Q10H [facility] Rx#:[id number] metroNIDAZOLE-NS PMX 500 100 100 mg In Saline 1 100ml.bag @ 100 mls/hr IVPB Q8HR [facility] Rx#:[id number] Intake, IV Titration 335 85 250 Amount Diltiazem 50 mg In Sodium 35 85 50 Chloride 0.9% 40 ml @ 5 MG/HR 5 mls/hr IV .Q10H [facility] Rx#:[id number] Levofloxacin 500Mg-D5w 100 Pmx 500 mg In Dextrose/ Water 1 100ml.bag @ 100 mls/hr IVPB Q24HR [facility] Rx# :[id number] Magnesium Sulfate-D5w Pmx 100 1 gm In Dextrose/Water 1 100ml.bag @ 100 mls/hr IVPB Q1H [facility] Rx#: [id number] Sodium Chloride 0.9% 1, 100 000 ml @ 100 mls/hr IV . Q10H [facility] Rx#:[id number] metroNIDAZOLE-NS PMX 500 200 mg In Saline 1 100ml.bag @ 100 mls/hr IVPB Q8HR [facility] Rx#:[id number] Output: Urine 755 855 510 Other: Voiding Method Indwelling Catheter Indwelling Catheter Indwelling Catheter # Voids 0 # Bowel Movements 1 2 - Exam Abdomen: Soft, mild diffuse tenderness, nondistended - Labs CBC & Chem 7: 01/13/18 04:04 01/13/18 04:04 Labs: Abnormal Lab Results - Last 24 Hours (Table) 01/13/18 01/13/18 Range/Units 04:04 04:04 WBC 12.6 H (3.8-10.6) k/uL Neutrophils # 10.8 H (1.3-7.7) k/uL Chloride 115 H (98-107) mmol/L Carbon Dioxide 16 L (22-30) mmol/L Calcium 8.2 L (8.4-10.2) mg/dL Phosphorus 2.3 L (2.5-4.5) mg/dL Microbiology - Last 24 Hours (Table) 01/12/18 20:16 Stool Culture - Preliminary Stool 01/09/18 20:15 Blood Culture - Preliminary Blood No Growth after 72 hours Assessment and Plan (1) Colitis Narrative/Plan: Continue IV antibiotics. Advance diet to full liquids. May transfer to [facility] care. Current Visit: Yes Status: Acute Code(s): K52.9 - NONINFECTIVE GASTROENTERITIS AND COLITIS, UNSPECIFIED SNOMED Code(s): 44122696
[2018-01-13] MEDS: METOPROLOL SUCCINATE (ER) 25 MG TAB.ER.24H PO SCH (20:31)
--- NOTE | 2018-01-13 22:57 | PN ---
PROGRESS NOTE DATE OF SERVICE: January 13, 2018. HISTORY OF PRESENT ILLNESS: This is a pleasant 82-year-old female patient with a past medical history significant for peripheral arterial disease and status post bilateral iliac stenting, paroxysmal atrial fibrillation, and history of TIA/CVA, was admitted to the hospital with abdominal discomfort of sudden onset and possible mesenteric ischemia. On follow up with the patient today, overall she is feeling better. The abdominal discomfort is better. She is afebrile. Denies having any chest pain or chest discomfort. Her diet was advanced and she is on liquid diet and she seems to be tolerating that very well. No more episodes of bloody stool so far. She continues to be in atrial fibrillation. She continues to be in an out atrial fibrillation and continues to be on Cardizem IV. The heart rate has been around 110 to 120 beats per minute. Hemodynamically, she continues to be stable beside that. Physical examination: General appearance: She does not look in any pain or any distress. Vitals showed a heart rate of 118 beats per minute, pressure is 146/88 mmHg, saturation is 96% on room air, and respiratory rate is 15 per minute. CARDIOVASCULAR examination shows irregularly irregular rhythm. RESPIRATORY examination showed diminished breathing sounds bilaterally. Diagnostic workup showed WBC is 12.6, hemoglobin 13.0, platelet count is 154. Sodium 138, potassium 3.5 and creatinine continues to be stable at 1.0. ASSESSMENT: 1. Mesenteric ischemia. 2. Abdominal discomfort associated with diarrhea seems to be better and secondary to mesenteric ischemia. 3. Paroxysmal atrial fibrillation. PLAN: 1. I would hold the anti-platelet and anticoagulation for at least additional 24 hours. 2. Start the patient on metoprolol to control the heart rate, and right wean from the Cardizem drip. 3. Her diet was advanced to liquid diet and she seems to be tolerating that very well. 4. Follow up with the patient. MMODL / IJN: [id number] /
[2018-01-14] MEDS: SODIUM CHLORIDE 0.9% 1,000 ML IV SCH ×2 (04:40→05:45)
[2018-01-14 05:14] LABS: Basophils % (A) 0 %; Eosinophils % (A) 0 %; HCT 43.3 % (34.0-46.0); Lymphocytes # (A) 1.2 k/uL (1.0-4.8); Lymphocytes % (A) 10 %; MCH 29.8 pg (25.0-35.0); MCHC 32.3 g/dL (31.0-37.0); MCV 92.3 fL (80.0-100.0); Mean Platelet Volume 7.7; Monocytes # (A) 0.6 k/uL (0-1.0); Monocytes % (A) 5 %; Neutrophils % (A) 83 %; Platelet Count 164 k/uL (150-450); RBC 4.69 m/uL (3.80-5.40); RDW 14.7 % (11.5-15.5); WBC 12.1 k/uL (3.8-10.6)
[2018-01-14 05:26] LABS: Calcium 8.3 mg/dL (8.4-10.2); Magnesium 1.9 mg/dL (1.6-2.3); Phosphorus 2.1 mg/dL (2.5-4.5); Potassium 3.6 mmol/L (3.5-5.1)
[2018-01-14] MEDS: DILTIAZEM 50 MG in SODIUM CHLORIDE 0.9% 40 ML IV SCH (05:45)
[2018-01-14] MEDS ORDERED: POTASSIUM CHLORIDE ER 20 MEQ TAB.ER PO SCH (06:00)
[2018-01-14] MEDS: MAGNESIUM SULFATE-D5W PMX 1 GM in DEXTROSE/WATER 1 100ML.BAG IVPB SCH ×2 (06:41→08:33)
[2018-01-14] MEDS: LEVOTHYROXINE 50 MCG TAB PO SCH (06:42)
--- NOTE | 2018-01-14 08:10 | XR ---
EXAMINATION TYPE: XR chest 1V DATE OF EXAM: 01/14/2018 CLINICAL HISTORY: Difficulty breathing progress study. TECHNIQUE: Single AP portable upright view of the chest is obtained. COMPARISON: Chest x-ray from one day earlier FINDINGS: There is cardiomegaly with dual lead pacemaker. Diminished inspiration is seen on current study with central vascular congestion. Bibasilar opacity remains present. No large pleural effusion or pneumothorax is seen. Osseous structures are demineralized. IMPRESSION: Diminished inspiration on current study. Persistent cardiomegaly with central vascular co ngestion may be on basis of CHF exacerbation.
--- NOTE | 2018-01-14 08:21 | P.PN ---
Subjective Progress Note Date: 01/14/18 Principal diagnosis: Colitis Progress note dated 01/12/2018 82-year-old female who was seen in the emergency department on January 09. She presented to the emergency department with complaints of abdominal pain and vomiting. He was also having some bloody bowel movements. Abdominal pain was described as being very severe. The patient also had some nausea with vomiting. This occurred several times. It seemed to happen after she was eating. No fever or chills. There is no urinary complaints. No chest pain or chest discomfort. No shortness of breath. No neurologic complaints. History is consistent with atrial fibrillation and atrial flutter CAD heart failure COPD CVA hyperlipidemia hypertension liver disease hypothyroidism and peripheral last occlusive disease. The patient also has history of cervical cancer and kidney stones as well as hepatitis C. The patient was seen as an"A "team last night. She was brought to the ICU primarily because of hypotension. She is not requiring any supplemental oxygen. She's got an IV of Cardizem 5 mg an hour and a saline IV at 75 mL an hour. Her current systolic blood pressure is 90. She is awake and alert. Her only complaint today is some tenderness in the abdomen. The patient is currently not receiving any supplemental oxygen. She is still complaining of abdominal pain. She was weaned off the norepinephrine. She is really only minimally better than she did yesterday. Progress note dated 01/13/2018 82-year-old female admitted with a diagnosis of colitis and possible sepsis. Patient remains on an IV of saline at 100 mL an hour and is on a Cardizem drip at 5 mg an hour. She is in atrial fibrillation with a rapid ventricular response. Heart rate is 130. She still having abdominal discomfort. She is maybe a bit better. The patient denies any fever or chills. No chest pain or chest discomfort. Not practically short of breath or anything like that. Her most recent chest x-ray shows a bit of fluid overload. She's got some very mild interstitial edema some small amounts of fluid in the fissure on the right and small bilateral pleural effusions. Her white count is 12.6 hemoglobin and hematocrit and platelet count all normal. Sodium 138 potassium 3.5 chloride 1: 15 CO2 16 anion gap is 7 BUN and creatinine are 13 and 1.0. This is consistent with a non-anion gap hyperchloremic metabolic acidosis. Microbiology is currently on negative. Clostridium difficile studies were negative and stools were positive for blood. Progress note dated 01/14/2018 82-year-old female admitted with a diagnosis of colitis and possible sepsis. Patient remains on O2 at 2 L by nasal cannula and saline IV 100 mL an hour and IV Cardizem 5 mg an hour for her atrial fibrillation. The patient seemed be doing a bit better. The patient states that she is having less abdominal discomfort. We can actually touch her abdomen and to palpate it without her jumping off the bed. In addition, she complains of having some difficulty swallowing and feeling a good is a lump in her throat. On evaluation, it appears that she has an oral pharyngeal candidiasis. We will order some nystatin swish and swallow for this. She had a pretty uneventful night last night according to the nurses. She denies any shortness breath chest tightness wheezing or cough. No chest pain or chest discomfort. Abdominal pain is improved. Objective - Vital Signs Vital signs: Vital Signs Temp 97.4 F L 01/14/18 04:00 Pulse 105 H 01/14/18 04:00 Resp 10 L 01/14/18 04:00 BP 137/74 01/14/18 04:00 Pulse Ox 98 01/14/18 04:00 Intake & Output 01/13/18 01/14/18 01/14/18 18:59 06:59 18:59 Intake Total 1555 1615 Output Total 705 1030 Balance 850 585 Weight 78.8 kg Intake: IV 1255 1565 Diltiazem 50 mg In Sodium 55 65 Chloride 0.9% 40 ml @ 5 MG/HR 5 mls/hr IV .Q10H [facility] Rx#:[id number] Magnesium Sulfate-D5w Pmx 100 1 gm In Dextrose/Water 1 100ml.bag @ 100 mls/hr IVPB Q1H [facility] Rx#: [id number] Sodium Chloride 0.9% 1, 1100 1300 000 ml @ 100 mls/hr IV . Q10H [facility] Rx#:[id number] metroNIDAZOLE-NS PMX 500 100 100 mg In Saline 1 100ml.bag @ 100 mls/hr IVPB Q8HR [facility] Rx#:[id number] Intake, IV Titration 250 50 Amount Diltiazem 50 mg In Sodium 50 50 Chloride 0.9% 40 ml @ 5 MG/HR 5 mls/hr IV .Q10H [facility] Rx#:[id number] Magnesium Sulfate-D5w Pmx 100 1 gm In Dextrose/Water 1 100ml.bag @ 100 mls/hr IVPB Q1H [facility] Rx#: [id number] Sodium Chloride 0.9% 1, 100 000 ml @ 100 mls/hr IV . Q10H [facility] Rx#:[id number] Oral 50 Output: Urine 705 1030 Other: Voiding Method Indwelling Catheter Indwelling Catheter # Voids 0 - Exam No acute distress, oriented 3. Nasal O2 at 2 L/m HEENT examination is grossly unremarkable. Mucous membranes are moist. Posterior or pharyngeal white plaques consistent with candidiasis Neck supple. Full range of motion. No adenopathy thyromegaly or neck vein distention. Cardiovascular examination reveals a irregular rhythm and rate. S1-S2 normal. No heart murmur noted. She appears to be in atrial fibrillation. Heart rate about 100 bpm. Lungs reveal mostly clear breath sounds. Her sounds are equal bilaterally. There are a few scattered crackles. No wheezes or rhonchi. Abdomen tender on palpation. A few bowel sounds are noted today. Abdomen mildly distended. Abdomen less tender today. Extremities are intact. No cyanosis clubbing or edema. Skin is without rash or lesion. Neurologic examination is brief but nonfocal. - Labs CBC & Chem 7: 01/14/18 04:05 01/14/18 04:05 Labs: Abnormal Lab Results - Last 24 Hours (Table) 01/14/18 01/14/18 Range/Units 04:05 04:05 WBC 12.1 H (3.8-10.6) k/uL Neutrophils # 10.0 H (1.3-7.7) k/uL Chloride 117 H (98-107) mmol/L Carbon Dioxide 16 L (22-30) mmol/L Calcium 8.3 L (8.4-10.2) mg/dL Phosphorus 2.1 L (2.5-4.5) mg/dL Microbiology - Last 24 Hours (Table) 01/09/18 20:15 Blood Culture - Preliminary Blood No Growth after 96 hours Assessment and Plan Assessment: Assessment Abdominal pain, nausea vomiting and bloody stools, rule out ischemic colitis secondary to patient's history of atrial fibrillation Hypotension, resolved, patient was weaned off of norepinephrine Atrial fibrillation with rapid ventricular response History of hypothyroidism History of hypertension History of hyperlipidemia History of chronic atrial fibrillation/flutter History of coronary disease History of hepatitis C History of CVA History of COPD History of cervical cancer Peripheral last occlusive disease Nephrolithiasis Oropharyngeal candidiasis Plan: Plan dated 01/11/2018 The patient seemed to be much more stable than last night. Her blood pressure has improved with fluid resuscitation. Currently on IV Cardizem at 5 mg an hour. She's getting a saline IV at 75 mL an hour. Her heart rhythm is atrial fibrillation with a heart rate of 109. Her abdomen is tender on palpation. He has some mild lower extremity edema. No respiratory issues at all. CT of the abdomen was consistent with colitis of the left colon. White count 13.8 hemoglobin 12.7 hematocrit 38.7 platelet count 138,000. Sodium 140 potassium 3.3 chloride 114 CO2 19 anion gap 7 BUN and creatinine were 23 and 1.40. Lactic acid is down to 1.3 from 2.6. Medications are reviewed. Additional recommendations and suggestions are forthcoming. Chest x-ray is stable. Plan dated 01/12/2018 The patient's white count is 14.8 hemoglobin and hematocrit were stable and platelet count 136,000. Sodium 137, potassium 4.1, chlorides 114, CO2 16, anion gap normal, BUN 19, and creatinine 1.20. Chest x-ray shows some bibasilar atelectasis. Microbiology was all negative. Medications are reviewed and seem appropriate including Levaquin and Flagyl. We will continue to follow here in the ICU. The patient may need a follow-up computed tomography scan of the abdomen. The surgeon is following along. Additional recommendations and suggestions are forthcoming. Prognosis is guarded. Critical care time 31 minutes Plan dated 01/13/2018 The patient remains in atrial fibrillation with rapid ventricular response. This is despite being on Cardizem at 5 mg an hour. Her pressure has stabilized a bit. The patient has developed a non-anion gap hyperchloremic metabolic acidosis. Microbiology is negative. Chest x-ray show some very mild fluid overload with some interstitial edema fluid in the fissures and small pleural effusions. Clostridium difficile studies were negative and stools were positive for occult blood. We will continue to follow. Prognosis is guarded. No additional recommendations are made. Critical care time 32 minutes Plan dated 01/14/2018 The patient remains in atrial fibrillation. Heart rate bit better controlled today. The patient's oral examination revealed candidiasis. For this, she'll get nystatin swish and swallow. She remains on Cardizem drip at 5 mg an hour and she's getting a saline IV 100 mL an hour. She is also on oxygen at 2 L/m by nasal cannula. Chest x-ray is consistent with mild heart failure. Microbiology is negative. White count is 12.1, hemoglobin 14, hematocrit 43.3 and platelet count 164,000. Sodium potassium normal. Chlorides 117 CO2 16 anion gap 7 BUN 9 creatinine 0.90. I will reduce the patient's IV and switch her to half normal saline. In addition, the patient will get a small dose of Lasix 20 mg IV push. We also start her on nystatin swish and swallow 5 mL 4 times a day. Prognosis is guarded. She might be able to be transferred out to the sixth floor. She still has a number of issues that we need to resolve. Critical care time 32 minutes Time with Patient: Greater than 30
[2018-01-14] MEDS ORDERED: FUROSEMIDE 10 MG/ML 2 ML VIAL IV ONE (08:30)
[2018-01-14] MEDS: metroNIDAZOLE-NS PMX 500 MG in SALINE 1 100ML.BAG IVPB SCH ×2 (08:33→15:56)
[2018-01-14] MEDS: LEVOFLOXACIN 500MG-D5W PMX 500 MG in DEXTROSE/WATER 1 100ML.BAG IVPB SCH (08:33)
[2018-01-14] MEDS: PANTOPRAZOLE 40 MG/10 ML VIAL IVP SCH (08:34)
[2018-01-14] MEDS: METOPROLOL SUCCINATE (ER) 25 MG TAB.ER.24H PO SCH ×2 (08:34→20:13)
[2018-01-14] MEDS: POTASSIUM CHLORIDE ER 10 MEQ TAB.ER.PRT PO SCH (08:34)
[2018-01-14] MEDS: NYSTATIN 100,000 UNIT/ML SUSP 500,000 UNIT/5 ML CUP PO SCH ×4 (09:13→20:13)
[2018-01-14] MEDS: SODIUM CHLORIDE 0.45% 1,000 ML IV SCH (09:13)
--- NOTE | 2018-01-14 12:10 | CONS ---
CONSULTATION This patient's medical records were reviewed. This patient is admitted with abdominal pain and currently is being treated for possible ischemic colitis. Patient remained stable cardiac-ernandez. Her Lopressor is initiated orally. She had 1 bloody movement yesterday and so patient was not started on anticoagulation. Heart rate, first and second heart sounds are normal. Lungs are clinically clear to auscultation and percussion. Patient's urine output remains good. There is no evidence of any significant failure We will continue the current medications. I would recommend to initiate the patient preferably on Eliquis rather than Xarelto as an anticoagulation. MMODL / IJN: [id number] /
--- NOTE | 2018-01-14 13:36 | P.PN ---
<Kera Faulknerlenora Rajput - Last Filed: 01/14/18 13:19> Subjective Progress Note Date: 01/14/18 82-year-old being seen in the intensive care unit sitting up in a chair waiting for transfer to a stepdown unit when bed available pleasant cooperative oriented. Patient states feeling better today afebrile heart rate in the 90s to 100. Cardiology following IV Cardizem drip has been DC'd beta uhsa initiated per cardiology's recommendations white count 12.1 currently tolerating a full liquid diet with no nausea no vomiting or seen reports patient had one small cyst stool this morning 1 large 1 yesterday evening. Patients being followed by surgical service for colitis Objective - Vital Signs Vital signs: Vital Signs Temp 97.5 F L 01/14/18 12:00 Pulse 94 01/14/18 13:00 Resp 12 01/14/18 13:00 BP 146/83 01/14/18 13:00 Pulse Ox 95 01/14/18 11:00 Intake & Output 01/13/18 01/14/18 01/14/18 18:59 06:59 18:59 Intake Total 1555 1615 220 Output Total 705 1030 845 Balance 850 585 -625 Weight 78.8 kg Intake: IV 1255 1565 220 Diltiazem 50 mg In Sodium 55 65 20 Chloride 0.9% 40 ml @ 5 MG/HR 5 mls/hr IV .Q10H [facility] Rx#:[id number] Magnesium Sulfate-D5w Pmx 100 1 gm In Dextrose/Water 1 100ml.bag @ 100 mls/hr IVPB Q1H [facility] Rx#: [id number] Sodium Chloride 0.9% 1, 1100 1300 100 000 ml @ 100 mls/hr IV . Q10H [facility] Rx#:[id number] metroNIDAZOLE-NS PMX 500 100 100 100 mg In Saline 1 100ml.bag @ 100 mls/hr IVPB Q8HR [facility] Rx#:[id number] Intake, IV Titration 250 50 Amount Diltiazem 50 mg In Sodium 50 50 Chloride 0.9% 40 ml @ 5 MG/HR 5 mls/hr IV .Q10H [facility] Rx#:[id number] Magnesium Sulfate-D5w Pmx 100 1 gm In Dextrose/Water 1 100ml.bag @ 100 mls/hr IVPB Q1H [facility] Rx#: [id number] Sodium Chloride 0.9% 1, 100 000 ml @ 100 mls/hr IV . Q10H [facility] Rx#:[id number] Oral 50 Output: Urine 705 1030 845 Other: Voiding Method Indwelling Catheter Indwelling Catheter Indwelling Catheter # Voids 0 0 - Exam Physical exam 82-year-old female sitting up in a chair pleasant cooperative oriented to person and place Lungs admission the bases otherwise adequate air movement Heart S1-S2 audible heart rate in the 90s to 100 Abdomen soft nontender non-distended bowel tones present tolerating a full liquid diet 1 stool this morning no blood noted no nausea no vomiting Extremities no edema - Labs CBC & Chem 7: 01/14/18 04:05 01/14/18 04:05 Labs: Abnormal Lab Results - Last 24 Hours (Table) 01/14/18 01/14/18 Range/Units 04:05 04:05 WBC 12.1 H (3.8-10.6) k/uL Neutrophils # 10.0 H (1.3-7.7) k/uL Chloride 117 H (98-107) mmol/L Carbon Dioxide 16 L (22-30) mmol/L Calcium 8.3 L (8.4-10.2) mg/dL Phosphorus 2.1 L (2.5-4.5) mg/dL Microbiology - Last 24 Hours (Table) 01/09/18 20:15 Blood Culture - Preliminary Blood No Growth after 96 hours Assessment and Plan Assessment: Impression Acute colitis suspect due to ischemic colitis. Improving Acute GI bleed hemoglobin stable History of coronary artery disease chronic atril fibrillation with episodes of RVR Hypovolemic shock secondary to acute acute GI bleed requiring IV fluid resuscitation and transferred to the intensive care unit. No vasopressors. Plan Continue IV Levaquin and Flagyl as ordered Increase activity Will follow with you further recommendations Advance diet as tolerated The above impression and plan of care have been discussed and directed by signing physician. Joana Faulkner nurse practitioner acting as scribe for signing physician. <Ilan Balbuena - Last Filed: 01/14/18 15:28> Objective - Vital Signs Vital signs: Vital Signs Temp 97.5 F L 01/14/18 12:00 Pulse 107 H 01/14/18 14:00 Resp 27 H 01/14/18 14:00 BP 147/88 08/17/18 14:00 Pulse Ox 98 01/14/18 14:00 Intake & Output 01/13/18 01/14/18 01/14/18 18:59 06:59 18:59 Intake Total 1555 1615 220 Output Total 705 1030 995 Balance 850 585 -775 Weight 78.8 kg Intake: IV 1255 1565 220 Diltiazem 50 mg In Sodium 55 65 20 Chloride 0.9% 40 ml @ 5 MG/HR 5 mls/hr IV .Q10H [facility] Rx#:[id number] Magnesium Sulfate-D5w Pmx 100 1 gm In Dextrose/Water 1 100ml.bag @ 100 mls/hr IVPB Q1H [facility] Rx#: [id number] Sodium Chloride 0.9% 1, 1100 1300 100 000 ml @ 100 mls/hr IV . Q10H [facility] Rx#:[id number] metroNIDAZOLE-NS PMX 500 100 100 100 mg In Saline 1 100ml.bag @ 100 mls/hr IVPB Q8HR [facility] Rx#:[id number] Intake, IV Titration 250 50 Amount Diltiazem 50 mg In Sodium 50 50 Chloride 0.9% 40 ml @ 5 MG/HR 5 mls/hr IV .Q10H [facility] Rx#:[id number] Magnesium Sulfate-D5w Pmx 100 1 gm In Dextrose/Water 1 100ml.bag @ 100 mls/hr IVPB Q1H [facility] Rx#: [id number] Sodium Chloride 0.9% 1, 100 000 ml @ 100 mls/hr IV . Q10H [facility] Rx#:[id number] Oral 50 Output: Urine 705 1030 995 Other: Voiding Method Indwelling Catheter Indwelling Catheter Indwelling Catheter # Voids 0 0 - Labs CBC & Chem 7: 01/14/18 04:05 01/14/18 04:05 Labs: Abnormal Lab Results - Last 24 Hours (Table) 01/14/18 01/14/18 Range/Units 04:05 04:05 WBC 12.1 H (3.8-10.6) k/uL Neutrophils # 10.0 H (1.3-7.7) k/uL Chloride 117 H (98-107) mmol/L Carbon Dioxide 16 L (22-30) mmol/L Calcium 8.3 L (8.4-10.2) mg/dL Phosphorus 2.1 L (2.5-4.5) mg/dL Microbiology - Last 24 Hours (Table) 01/09/18 20:15 Blood Culture - Preliminary Blood No Growth after 96 hours Assessment and Plan Assessment: As above. Patient ambulate in the room. Feels fatigued. Appetite diminished. Tolerating some of the full liquid diet. No nausea or vomiting. Denies any significant abdominal pain. White blood cell count remains slightly elevated. Tachycardia improved. Abdomen soft, nondistended, mild bilateral mid abdominal tenderness. Continue full liquids. Continue antibiotics. Will follow. (1) Colitis Current Visit: Yes Status: Acute Code(s): K52.9 - NONINFECTIVE GASTROENTERITIS AND COLITIS, UNSPECIFIED SNOMED Code(s): 82109612
--- NOTE | 2018-01-14 14:07 | P.PN ---
Subjective Progress Note Date: 01/14/18 This is an 82-year-old female one of Dr. Kirkpatrick with a previous medical history significant for hypertension and hypertensive cardiovascular disease, atrial flutter/fibrillation status post permanent pacemaker placement on xarelto, history of previous CVA, CAD status post microinfarction in the past , PVD status post stents by Dr. Cotton in both lower extremities last one was about 09/03/2015, admission February 2017 for acute kidney injury secondary to aggressive diuresis. Patient is complaining of lower abdominal pain that is severe and feeling that she needs to have a bowel movement but is unable to do that. She has had several episodes of vomiting. Onset of symptoms were yesterday. No fever or chills she denies any diarrhea. She denies any chest pain or shortness of breath. She came into [facility] emergency center by EMS. She was found to be afebrile with stable vital signs, leukocytosis of 14.5, BUN 20 creatinine 1.4 and potassium 3.3. Blood sugar was 130. Amylase 307, lipase 133, troponin was normal. Lactic acid was 2.9. Urinalysis was cloudy, trace blood, nitrate negative, leukoesterase small, bacteria moderate. She had a chest x-ray shows no acute cardiopulmonary process. CT of the abdomen and pelvis without contrast shows diffuse wall thickening of the left colon compared to old exam consistent with nonspecific colitis. She large bowel with air-fluid levels consistent with ileus. No evidence of an abscess. Extensive colonic diverticulosis. Patient was given IV ceftriaxone, Reglan and Flagyl status post 2 L of IV fluid and admitted to the [facility] floor. Patient is nothing by mouth. A consult with Dr. Balbuena requested and repeat abdominal x-rays. 01/11: Patient has been seen by Dr. Balbuena with recommendations to continue antibiotics for suspected ischemic colitis and clear liquid diet. He has ordered CTA of the abdomen and pelvis. Last evening, patient had 2 bloody bowel movements and abdominal pain became severe she was nauseated and had emesis. She had a drop in her blood pressure to systolic of 60 and she was transferred to the intensive care unit. She apparently had one bloody stool in ICU. She has been treated with 2-1/2 L of IV fluids. He has not required vasopressors. Her initial lactic acid was 3.3 now improved to 1.3. She also went into rapid ventricular response A. fib. She is currently in a paced rhythm and rate controlled. Cardiology consult was added and patient is on a Cardizem drip. Is also consult with intensive care management. 01/12: CTA of the abdomen and pelvis showed left colon wall thickening and surrounding fat stranding consistent with nonspecific colitis that is worse than last CT on 01/09/2018. This could be ischemic colitis. Atherosclerotic vascular disease. Increase in fluid and thickening in the posterior left paracolic gutter compared to old exam. Repeat chest x-ray shows no acute findings. White count has increased to 14.8. Hemoglobin is stable at 13. Creatinine is 1.2. Capillary blood glucose running between 70 and 129. She states that she has had some nausea and vomiting and saw Dr. Balbuena this morning and patient will be switched from clears to nothing by mouth. Dr. Balbuena discussing case with Dr. Cotton. 01/13: Patient remains in the intensive care unit. Heart rate is running in the 1 teens as paced atrial fibrillation. Patient had vomiting continued until last evening. She tolerated clear liquids for dinner and for breakfast this morning. She denies having any nausea at this time. She has had a bowel movement. Myrick catheter in place. Anticipate patient is ready for transfer out of the intensive care unit. She is on a Cardizem drip. Abdominal tenderness to the left lower quadrant today. 01/14: Patient remains in intensive care unit. She does state that she is feeling better today. Abdominal pain is improving. She is on a full liquid diet and tolerating this. White count is at 12.1 and hemoglobin is stable at 14. She remains on Cardizem drip for atrial fibrillation running in the low 100 and teens. Patient to be transferred to the selective care unit. She was ordered for 1 dose of IV Lasix 20 mg and IV fluids decreased to 50 mL per hour. Objective - Vital Signs Vital signs: Vital Signs Temp 97.4 F L 01/14/18 04:00 Pulse 105 H 01/14/18 04:00 Resp 10 L 01/14/18 04:00 BP 137/74 01/14/18 04:00 Pulse Ox 98 01/14/18 04:00 Intake & Output 01/13/18 01/14/18 01/14/18 18:59 06:59 18:59 Intake Total 1555 1615 Output Total 705 1030 125 Balance 850 585 -125 Weight 78.8 kg Intake: IV 1255 1565 Diltiazem 50 mg In Sodium 55 65 Chloride 0.9% 40 ml @ 5 MG/HR 5 mls/hr IV .Q10H [facility] Rx#:[id number] Magnesium Sulfate-D5w Pmx 100 1 gm In Dextrose/Water 1 100ml.bag @ 100 mls/hr IVPB Q1H [facility] Rx#: [id number] Sodium Chloride 0.9% 1, 1100 1300 000 ml @ 100 mls/hr IV . Q10H [facility] Rx#:[id number] metroNIDAZOLE-NS PMX 500 100 100 mg In Saline 1 100ml.bag @ 100 mls/hr IVPB Q8HR [facility] Rx#:[id number] Intake, IV Titration 250 50 Amount Diltiazem 50 mg In Sodium 50 50 Chloride 0.9% 40 ml @ 5 MG/HR 5 mls/hr IV .Q10H [facility] Rx#:[id number] Magnesium Sulfate-D5w Pmx 100 1 gm In Dextrose/Water 1 100ml.bag @ 100 mls/hr IVPB Q1H [facility] Rx#: [id number] Sodium Chloride 0.9% 1, 100 000 ml @ 100 mls/hr IV . Q10H [facility] Rx#:[id number] Oral 50 Output: Urine 705 1030 125 Other: Voiding Method Indwelling Catheter Indwelling Catheter # Voids 0 - Exam General appearance: average body habitus, no acute distress - EENT Eyes: anicteric sclerae, EOMI, PERRLA, no ptosis, no scleral icterus, normal appearance ENT: hearing grossly normal, NA/AT, normal oropharynx, no thrush Ears: bilateral: normal - Neck Neck: no lymphadenopathy, normal ROM, no rigidity, no stridor, no thyromegaly Carotids: bilateral: upstroke normal Thyroid: bilateral: normal size - Respiratory Respiratory: bilateral: diminished, negative: dullness, rales, rhonchi, wheezing , prolonged expiration, prolonged inspiration - Cardiovascular Rhythm: irregularly irregular (permanent pacemaker.) Heart sounds: normal: S1, S2 Abnormal Heart Sounds: systolic murmur, no rub, no click - Gastrointestinal General gastrointestinal: normal bowel sounds, soft, no splenomegaly, generalized mild tenderness to left lower quadrant. - Integumentary Integumentary: normal, normal turgor - Neurologic Neurologic: CNII-XII intact - Musculoskeletal Musculoskeletal: gait normal, strength equal bilaterally - Psychiatric Psychiatric: A&O x's 3, appropriate affect, intact judgment & insight - Labs CBC & Chem 7: 01/14/18 04:05 01/14/18 04:05 Labs: Abnormal Lab Results - Last 24 Hours (Table) 01/14/18 01/14/18 Range/Units 04:05 04:05 WBC 12.1 H (3.8-10.6) k/uL Neutrophils # 10.0 H (1.3-7.7) k/uL Chloride 117 H (98-107) mmol/L Carbon Dioxide 16 L (22-30) mmol/L Calcium 8.3 L (8.4-10.2) mg/dL Phosphorus 2.1 L (2.5-4.5) mg/dL Microbiology - Last 24 Hours (Table) 01/09/18 20:15 Blood Culture - Preliminary Blood No Growth after 96 hours Assessment and Plan Plan: 1. Acute colitis secondary to ischemic colitis, with lactic acidosis. Patient made nothing by mouth. Levaquin and Flagyl started. Consult with Dr. Balbuena appreciated. CTA of the abdomen and pelvis as above. Continue Zofran for nausea and morphine for pain control. Continue IV fluids at 50 mL per hour. 2. Acute GI bleed with stable hemoglobin. Continue to monitor hemoglobin. 3. Hypovolemic shock secondary to acute GI bleed requiring IV fluid resuscitation and transferred to the intensive care unit. No vasopressors. 4. History of CAD. Continue metoprolol 50 mg orally twice every day is on hold. 5. Hypertension and hypertensive cardiovascular disease. Lisinopril 5 mg orally once every day, metoprolol 50 mg orally twice every day on hold. 6. Hypothyroidism. Continue Synthroid 50 g orally once every day. 7. PAD post PTBI with stent placement of both lower extremities. Stable. Plavix on hold 8. Atrial fibrillation post-permanent pacemaker placement with episode of RVR. Patient required Cardizem drip. Xarelto on hold. Cardiology consult appreciated. 9. Chronic kidney disease stage III. Monitor kidney function. 10. DVT prophylaxis. 11. Gastrointestinal prophylaxis. Protonix. Full code. Discharge plan: To be determined. PT and OT to evaluate patient. She lives at home with her daughter. Impression and plan of care have been directed as dictated by the signing physician. Bette Copeland nurse practitioner acting as scribe for signing physician.
[2018-01-14] MEDS: ONDANSETRON 4 MG/2 ML VIAL IVP PRN (18:37)
[2018-01-14] MEDS: MORPHINE SULFATE 4 MG/ML SYRINGE IV PRN (20:13)
[2018-01-15] MEDS: ONDANSETRON 4 MG/2 ML VIAL IVP PRN (01:14)
[2018-01-15] MEDS: metroNIDAZOLE-NS PMX 500 MG in SALINE 1 100ML.BAG IVPB SCH ×4 (01:14→23:11)
[2018-01-15] MEDS: SODIUM CHLORIDE 0.45% 1,000 ML IV SCH (06:12)
[2018-01-15] MEDS: LEVOTHYROXINE 50 MCG TAB PO SCH (06:34)
[2018-01-15 06:52] LABS: HCT 37.6 % (34.0-46.0); HGB 12.4 gm/dL (11.4-16.0); MCV 91.1 fL (80.0-100.0); Mean Platelet Volume 7.2; Platelet Count 151 k/uL (150-450); RBC 4.13 m/uL (3.80-5.40); RDW 14.7 % (11.5-15.5)
--- NOTE | 2018-01-15 06:52 | XR ---
EXAMINATION TYPE: XR chest 1V portable DATE OF EXAM: 01/15/2018 HISTORY: shortness of breath. REFERENCE: Previous study dated 12/29/2017. FINDINGS: There is a bipolar pacemaker place on the left. There is some bibasilar atelectasis. Lungs otherwise clear. Pleural space are clear. The heart is not enlarged. IMPRESSION: CONTINUING BIBASILAR ATELECTASIS.
[2018-01-15 06:57] LABS: Calcium 7.9 mg/dL (8.4-10.2); Magnesium 1.9 mg/dL (1.6-2.3); Phosphorus 1.4 mg/dL (2.5-4.5); Potassium 3.6 mmol/L (3.5-5.1)
[2018-01-15 07:17] LABS: Eosinophils # (M) 0.08 k/uL (0-0.7); Monocytes # (M) 1.11 k/uL (0-1.0); Neutrophils # (M) 5.21 k/uL (1.3-7.7); Neutrophils % (M) 66 %; Nucleated Red Blood Cells 1 /100 WBC (0-0); Total Cells Counted 100; WBC 7.9 k/uL (3.8-10.6)
[2018-01-15] MEDS: NYSTATIN 100,000 UNIT/ML SUSP 500,000 UNIT/5 ML CUP PO SCH ×4 (09:19→21:01)
[2018-01-15] MEDS: METOPROLOL SUCCINATE (ER) 25 MG TAB.ER.24H PO SCH ×2 (09:19→21:00)
[2018-01-15] MEDS: POTASSIUM CHLORIDE ER 10 MEQ TAB.ER.PRT PO SCH (09:19)
[2018-01-15] MEDS: PANTOPRAZOLE 40 MG/10 ML VIAL IVP SCH (09:19)
--- NOTE | 2018-01-15 10:17 | P.PN ---
Subjective Progress Note Date: 01/15/18 Principal diagnosis: Colitis Patient doing better today. Denies pain currently. Her appetite is slowly improving. Heart rate remains in the low 100s. White blood cell count normal at 7.9. Objective - Vital Signs Vital signs: Vital Signs Temp 98.3 F 01/15/18 07:55 Pulse 107 H 01/15/18 07:55 Resp 18 01/15/18 07:55 BP 124/76 01/15/18 07:55 Pulse Ox 99 01/15/18 07:55 Intake & Output 01/14/18 01/15/18 01/15/18 18:59 06:59 18:59 Intake Total 306.25 540 Output Total 1450 Balance -1143.75 540 Weight 77.1 kg Intake: IV 270 100 Diltiazem 50 mg In Sodium 20 Chloride 0.9% 40 ml @ 5 MG/HR 5 mls/hr IV .Q10H [facility] Rx#:[id number] Sodium Chloride 0.45% 1, 50 000 ml @ 50 mls/hr IV . Q20H [facility] Rx#:[id number] Sodium Chloride 0.9% 1, 100 000 ml @ 100 mls/hr IV . Q10H [facility] Rx#:[id number] metroNIDAZOLE-NS PMX 500 100 100 mg In Saline 1 100ml.bag @ 100 mls/hr IVPB Q8HR [facility] Rx#:[id number] Intake, IV Titration 36.25 Amount Diltiazem 50 mg In Sodium 36.25 Chloride 0.9% 40 ml @ 5 MG/HR 5 mls/hr IV .Q10H [facility] Rx#:[id number] Oral 440 Output: Urine 1450 Other: Voiding Method Indwelling Catheter Bedside Commode # Voids 0 1 # Bowel Movements 2 - Exam Abdomen: Soft, nontender, nondistended - Labs CBC & Chem 7: 01/15/18 06:16 01/15/18 06:16 Labs: Abnormal Lab Results - Last 24 Hours (Table) 01/15/18 01/15/18 Range/Units 06:16 06:16 Monocytes # (Manual) 1.11 H (0-1.0) k/uL Nucleated RBCs 1 H (0-0) /100 WBC Chloride 113 H (98-107) mmol/L Carbon Dioxide 21 L (22-30) mmol/L Calcium 7.9 L (8.4-10.2) mg/dL Phosphorus 1.4 L (2.5-4.5) mg/dL Microbiology - Last 24 Hours (Table) 01/09/18 20:15 Blood Culture - Preliminary Blood No Growth after 120 hours 01/12/18 20:16 Stool Culture - Preliminary Stool Assessment and Plan (1) Colitis Narrative/Plan: Will increase diet to low fiber. Continue antibiotics. Increase activity. Current Visit: Yes Status: Acute Code(s): K52.9 - NONINFECTIVE GASTROENTERITIS AND COLITIS, UNSPECIFIED SNOMED Code(s): 37585487
[2018-01-15] MEDS ORDERED: FUROSEMIDE 10 MG/ML 4 ML VIAL IV STA (10:30)
--- NOTE | 2018-01-15 10:58 | P.PN ---
Subjective Progress Note Date: 01/15/18 Principal diagnosis: Colitis Progress note dated 01/12/2018 82-year-old female who was seen in the emergency department on January 09. She presented to the emergency department with complaints of abdominal pain and vomiting. He was also having some bloody bowel movements. Abdominal pain was described as being very severe. The patient also had some nausea with vomiting. This occurred several times. It seemed to happen after she was eating. No fever or chills. There is no urinary complaints. No chest pain or chest discomfort. No shortness of breath. No neurologic complaints. History is consistent with atrial fibrillation and atrial flutter CAD heart failure COPD CVA hyperlipidemia hypertension liver disease hypothyroidism and peripheral last occlusive disease. The patient also has history of cervical cancer and kidney stones as well as hepatitis C. The patient was seen as an"A "team last night. She was brought to the ICU primarily because of hypotension. She is not requiring any supplemental oxygen. She's got an IV of Cardizem 5 mg an hour and a saline IV at 75 mL an hour. Her current systolic blood pressure is 90. She is awake and alert. Her only complaint today is some tenderness in the abdomen. The patient is currently not receiving any supplemental oxygen. She is still complaining of abdominal pain. She was weaned off the norepinephrine. She is really only minimally better than she did yesterday. Progress note dated 01/13/2018 82-year-old female admitted with a diagnosis of colitis and possible sepsis. Patient remains on an IV of saline at 100 mL an hour and is on a Cardizem drip at 5 mg an hour. She is in atrial fibrillation with a rapid ventricular response. Heart rate is 130. She still having abdominal discomfort. She is maybe a bit better. The patient denies any fever or chills. No chest pain or chest discomfort. Not practically short of breath or anything like that. Her most recent chest x-ray shows a bit of fluid overload. She's got some very mild interstitial edema some small amounts of fluid in the fissure on the right and small bilateral pleural effusions. Her white count is 12.6 hemoglobin and hematocrit and platelet count all normal. Sodium 138 potassium 3.5 chloride 1: 15 CO2 16 anion gap is 7 BUN and creatinine are 13 and 1.0. This is consistent with a non-anion gap hyperchloremic metabolic acidosis. Microbiology is currently on negative. Clostridium difficile studies were negative and stools were positive for blood. Progress note dated 01/14/2018 82-year-old female admitted with a diagnosis of colitis and possible sepsis. Patient remains on O2 at 2 L by nasal cannula and saline IV 100 mL an hour and IV Cardizem 5 mg an hour for her atrial fibrillation. The patient seemed be doing a bit better. The patient states that she is having less abdominal discomfort. We can actually touch her abdomen and to palpate it without her jumping off the bed. In addition, she complains of having some difficulty swallowing and feeling a good is a lump in her throat. On evaluation, it appears that she has an oral pharyngeal candidiasis. We will order some nystatin swish and swallow for this. She had a pretty uneventful night last night according to the nurses. She denies any shortness breath chest tightness wheezing or cough. No chest pain or chest discomfort. Abdominal pain is improved. The patient is seen today 01/15/2018 in follow-up on the selective care unit. She is currently awake and alert in no acute distress. She denies any worsening shortness of breath, cough or congestion. She is feeling better today as compared to yesterday. His x-ray does show continued by basilar atelectasis. She is maintaining good O2 saturations up to 100% on 3 L/m per nasal cannula. She's been afebrile. Blood urine and stool cultures reveal no growth to date. C. difficile screen negative. White count 7.9. Hemoglobin 12.4. Creatinine 0.97. She remains on Levaquin and Flagyl. Objective - Vital Signs Vital signs: Vital Signs Temp 98.3 F 01/15/18 07:55 Pulse 107 H 01/15/18 07:55 Resp 18 01/15/18 07:55 BP 124/76 01/15/18 07:55 Pulse Ox 99 01/15/18 07:55 Intake & Output 01/14/18 01/15/18 01/15/18 18:59 06:59 18:59 Intake Total 306.25 540 Output Total 1450 Balance -1143.75 540 Weight 77.1 kg Intake: IV 270 100 Diltiazem 50 mg In Sodium 20 Chloride 0.9% 40 ml @ 5 MG/HR 5 mls/hr IV .Q10H [facility] Rx#:[id number] Sodium Chloride 0.45% 1, 50 000 ml @ 50 mls/hr IV . Q20H [facility] Rx#:[id number] Sodium Chloride 0.9% 1, 100 000 ml @ 100 mls/hr IV . Q10H [facility] Rx#:[id number] metroNIDAZOLE-NS PMX 500 100 100 mg In Saline 1 100ml.bag @ 100 mls/hr IVPB Q8HR [facility] Rx#:[id number] Intake, IV Titration 36.25 Amount Diltiazem 50 mg In Sodium 36.25 Chloride 0.9% 40 ml @ 5 MG/HR 5 mls/hr IV .Q10H [facility] Rx#:[id number] Oral 440 Output: Urine 1450 Other: Voiding Method Indwelling Catheter Bedside Commode # Voids 0 1 # Bowel Movements 2 - Exam No acute distress, oriented 3. Nasal O2 at 2 L/m HEENT examination is grossly unremarkable. Mucous membranes are moist. Posterior or pharyngeal white plaques consistent with candidiasis Neck supple. Full range of motion. No adenopathy thyromegaly or neck vein distention. Cardiovascular examination reveals a irregular rhythm and rate. S1-S2 normal. No heart murmur noted. She appears to be in atrial fibrillation. Heart rate about 100 bpm. Lungs reveal mostly clear breath sounds. Her sounds are equal bilaterally. There are a few scattered crackles. No wheezes or rhonchi. Abdomen tender on palpation. A few bowel sounds are noted today. Abdomen mildly distended. Abdomen less tender today. Extremities are intact. No cyanosis clubbing or edema. Skin is without rash or lesion. Neurologic examination is brief but nonfocal. - Labs CBC & Chem 7: 01/15/18 06:16 01/15/18 06:16 Labs: Abnormal Lab Results - Last 24 Hours (Table) 01/15/18 01/15/18 Range/Units 06:16 06:16 Monocytes # (Manual) 1.11 H (0-1.0) k/uL Nucleated RBCs 1 H (0-0) /100 WBC Chloride 113 H (98-107) mmol/L Carbon Dioxide 21 L (22-30) mmol/L Calcium 7.9 L (8.4-10.2) mg/dL Phosphorus 1.4 L (2.5-4.5) mg/dL Microbiology - Last 24 Hours (Table) 01/09/18 20:15 Blood Culture - Preliminary Blood No Growth after 120 hours 01/12/18 20:16 Stool Culture - Preliminary Stool Assessment and Plan Assessment: Assessment Abdominal pain, nausea vomiting and bloody stools, rule out ischemic colitis secondary to patient's history of atrial fibrillation Hypotension, resolved, patient was weaned off of norepinephrine Atrial fibrillation with rapid ventricular response History of hypothyroidism History of hypertension History of hyperlipidemia History of chronic atrial fibrillation/flutter History of coronary disease History of hepatitis C History of CVA History of COPD History of cervical cancer Peripheral last occlusive disease Nephrolithiasis Oropharyngeal candidiasis [place]: The patient was seen and evaluated by Dr. Caraballo. She is stable from the pulmonary and critical care standpoint. We'll follow the patient on as-needed basis. I, the cosigning physician, performed a history & physical examination of the patient. Lungs sounds faint crackles in the posterior bases. Maintaining good O2 saturations in the 90s on 2 L/m per nasal cannula. I discussed the assessment and plan of care with my nurse practitioner, Mary Ho. I attest to the above note as dictated by her.
[2018-01-15] MEDS: LEVOFLOXACIN 500MG-D5W PMX 500 MG in DEXTROSE/WATER 1 100ML.BAG IVPB SCH (11:01)
--- NOTE | 2018-01-15 12:54 | P.PN ---
Subjective Progress Note Date: 01/15/18 This is an 82-year-old female admitted to the hospital primarily with abdominal pain, currently being treated for ischemic colitis. Cardiology was seeing the patient because of atrial fibrillation, patient had had a bloody bowel movement and for this reason her anticoagulation had been placed on hold. I did speak with Dr. belle today who inferred that the patient could be reinitiated on anticoagulation. We will restart reinitiate her xarelto at the same dose that she was taking at home. Continue to monitor hemoglobin closely. Overall she states she's feeling somewhat better today. Hemodynamically stable. Objective - Vital Signs Vital signs: Vital Signs Temp 98.3 F 01/15/18 07:55 Pulse 107 H 01/15/18 07:55 Resp 18 01/15/18 07:55 BP 124/76 01/15/18 07:55 Pulse Ox 99 01/15/18 07:55 Intake & Output 01/14/18 01/15/18 01/15/18 18:59 06:59 18:59 Intake Total 306.25 540 Output Total 1450 Balance -1143.75 540 Weight 77.1 kg Intake: IV 270 100 Diltiazem 50 mg In Sodium 20 Chloride 0.9% 40 ml @ 5 MG/HR 5 mls/hr IV .Q10H [facility] Rx#:[id number] Sodium Chloride 0.45% 1, 50 000 ml @ 50 mls/hr IV . Q20H [facility] Rx#:[id number] Sodium Chloride 0.9% 1, 100 000 ml @ 100 mls/hr IV . Q10H [facility] Rx#:[id number] metroNIDAZOLE-NS PMX 500 100 100 mg In Saline 1 100ml.bag @ 100 mls/hr IVPB Q8HR [facility] Rx#:[id number] Intake, IV Titration 36.25 Amount Diltiazem 50 mg In Sodium 36.25 Chloride 0.9% 40 ml @ 5 MG/HR 5 mls/hr IV .Q10H [facility] Rx#:[id number] Oral 440 Output: Urine 1450 Other: Voiding Method Indwelling Catheter Bedside Commode # Voids 0 1 # Bowel Movements 2 - Exam PHYSICAL EXAMINATION: GENERAL: 82-year-old female in no acute distress at the time of my examination HEENT: Head is atraumatic, normocephalic. Pupils equal, round. Sclera anicteric. Conjunctiva are clear. Mucous membranes of the mouth are moist. Neck is supple. There is no elevated jugular venous pressure.] bruit is heard. HEART EXAMINATION: Heart S1 S2 1 systolic murmur is heard. CHEST EXAMINATION: His reveal diminished air entry with scattered wheezing throughout. ABDOMEN: Soft, nontender. Bowel sounds are heard. No organomegaly noted. EXTREMITIES: 2+ peripheral pulses with no evidence of peripheral edema and no calf tenderness noted. NEUROLOGIC patient is awake, alert and oriented ?-3. . - Labs CBC & Chem 7: 01/15/18 06:16 01/15/18 06:16 Labs: Abnormal Lab Results - Last 24 Hours (Table) 01/15/18 01/15/18 Range/Units 06:16 06:16 Monocytes # (Manual) 1.11 H (0-1.0) k/uL Nucleated RBCs 1 H (0-0) /100 WBC Chloride 113 H (98-107) mmol/L Carbon Dioxide 21 L (22-30) mmol/L Calcium 7.9 L (8.4-10.2) mg/dL Phosphorus 1.4 L (2.5-4.5) mg/dL Microbiology - Last 24 Hours (Table) 01/09/18 20:15 Blood Culture - Preliminary Blood No Growth after 120 hours 01/12/18 20:16 Stool Culture - Preliminary Stool Assessment and Plan Plan: Assessment and Plan Plan: 1. Acute colitis, possible ischemic colitis, 2. History of CAD. 3. Hypertension 4. Hypothyroidism. 5. PAD post PTBI with stent placement of both lower extremities. Stable. 6. Atrial fibrillation, paroxysmal, and post-permanent pacemaker placement. Continue metoprolol 50 mg orally twice every day as well as Xarelto 15 mg orally once every day. 7. Chronic kidney disease stage III. Monitor kidney function. From cardiology's perspective, we'll resume the patient's xarelto 15 mg daily. Monitor daily hemoglobins. DNP note has been reviewed, I agree with a documented findings and plan of care. Patient was seen and examined.
--- NOTE | 2018-01-15 15:56 | P.PN ---
Subjective Progress Note Date: 01/15/18 This is an 82-year-old female one of Dr. Kirkpatrick with a previous medical history significant for hypertension and hypertensive cardiovascular disease, atrial flutter/fibrillation status post permanent pacemaker placement on xarelto, history of previous CVA, CAD status post microinfarction in the past , PVD status post stents by Dr. Cotton in both lower extremities last one was about 09/03/2015, admission February 2017 for acute kidney injury secondary to aggressive diuresis. Patient is complaining of lower abdominal pain that is severe and feeling that she needs to have a bowel movement but is unable to do that. She has had several episodes of vomiting. Onset of symptoms were yesterday. No fever or chills she denies any diarrhea. She denies any chest pain or shortness of breath. She came into [facility] emergency center by EMS. She was found to be afebrile with stable vital signs, leukocytosis of 14.5, BUN 20 creatinine 1.4 and potassium 3.3. Blood sugar was 130. Amylase 307, lipase 133, troponin was normal. Lactic acid was 2.9. Urinalysis was cloudy, trace blood, nitrate negative, leukoesterase small, bacteria moderate. She had a chest x-ray shows no acute cardiopulmonary process. CT of the abdomen and pelvis without contrast shows diffuse wall thickening of the left colon compared to old exam consistent with nonspecific colitis. She large bowel with air-fluid levels consistent with ileus. No evidence of an abscess. Extensive colonic diverticulosis. Patient was given IV ceftriaxone, Reglan and Flagyl status post 2 L of IV fluid and admitted to the [facility] floor. Patient is nothing by mouth. A consult with Dr. Balbuena requested and repeat abdominal x-rays. 01/11: Patient has been seen by Dr. Balbuena with recommendations to continue antibiotics for suspected ischemic colitis and clear liquid diet. He has ordered CTA of the abdomen and pelvis. Last evening, patient had 2 bloody bowel movements and abdominal pain became severe she was nauseated and had emesis. She had a drop in her blood pressure to systolic of 60 and she was transferred to the intensive care unit. She apparently had one bloody stool in ICU. She has been treated with 2-1/2 L of IV fluids. He has not required vasopressors. Her initial lactic acid was 3.3 now improved to 1.3. She also went into rapid ventricular response A. fib. She is currently in a paced rhythm and rate controlled. Cardiology consult was added and patient is on a Cardizem drip. Is also consult with intensive care management. 01/12: CTA of the abdomen and pelvis showed left colon wall thickening and surrounding fat stranding consistent with nonspecific colitis that is worse than last CT on 01/09/2018. This could be ischemic colitis. Atherosclerotic vascular disease. Increase in fluid and thickening in the posterior left paracolic gutter compared to old exam. Repeat chest x-ray shows no acute findings. White count has increased to 14.8. Hemoglobin is stable at 13. Creatinine is 1.2. Capillary blood glucose running between 70 and 129. She states that she has had some nausea and vomiting and saw Dr. Balbuena this morning and patient will be switched from clears to nothing by mouth. Dr. Balbuena discussing case with Dr. Cotton. 01/13: Patient remains in the intensive care unit. Heart rate is running in the 1 teens as paced atrial fibrillation. Patient had vomiting continued until last evening. She tolerated clear liquids for dinner and for breakfast this morning. She denies having any nausea at this time. She has had a bowel movement. Myrick catheter in place. Anticipate patient is ready for transfer out of the intensive care unit. She is on a Cardizem drip. Abdominal tenderness to the left lower quadrant today. 01/14: Patient remains in intensive care unit. She does state that she is feeling better today. Abdominal pain is improving. She is on a full liquid diet and tolerating this. White count is at 12.1 and hemoglobin is stable at 14. She remains on Cardizem drip for atrial fibrillation running in the low 100 and teens. Patient to be transferred to the selective care unit. She was ordered for 1 dose of IV Lasix 20 mg and IV fluids decreased to 50 mL per hour. 01/15: Patient is complaining of increased shortness of breath, her chest x-ray showed bilateral atelectasis, however she has significant edema both lower extremities and upper extremities, we will Hep-Lock her IV and give the patient Lasix 40 mg IV push 1, reevaluate in the next 24 hours. Objective - Vital Signs Vital signs: Vital Signs Temp 97.2 F L 01/15/18 03:55 Pulse 109 H 01/15/18 04:15 Resp 20 01/15/18 04:15 BP 145/90 01/15/18 03:55 Pulse Ox 100 01/15/18 03:55 Intake & Output 01/14/18 01/15/18 01/15/18 18:59 06:59 18:59 Intake Total 306.25 Output Total 1450 Balance -1143.75 Weight 77.1 kg Intake: IV 270 Diltiazem 50 mg In Sodium 20 Chloride 0.9% 40 ml @ 5 MG/HR 5 mls/hr IV .Q10H [facility] Rx#:[id number] Sodium Chloride 0.45% 1, 50 000 ml @ 50 mls/hr IV . Q20H [facility] Rx#:[id number] Sodium Chloride 0.9% 1, 100 000 ml @ 100 mls/hr IV . Q10H [facility] Rx#:[id number] metroNIDAZOLE-NS PMX 500 100 mg In Saline 1 100ml.bag @ 100 mls/hr IVPB Q8HR [facility] Rx#:[id number] Intake, IV Titration 36.25 Amount Diltiazem 50 mg In Sodium 36.25 Chloride 0.9% 40 ml @ 5 MG/HR 5 mls/hr IV .Q10H [facility] Rx#:[id number] Output: Urine 1450 Other: Voiding Method Indwelling Catheter Bedside Commode # Voids 0 1 # Bowel Movements 2 - Exam - Exam General appearance: average body habitus, no acute distress - EENT Eyes: anicteric sclerae, EOMI, PERRLA, no ptosis, no scleral icterus, normal appearance ENT: hearing grossly normal, NA/AT, normal oropharynx, no thrush Ears: bilateral: normal - Neck Neck: no lymphadenopathy, normal ROM, no rigidity, no stridor, no thyromegaly Carotids: bilateral: upstroke normal Thyroid: bilateral: normal size - Respiratory Respiratory: bilateral: diminished, negative: dullness, rales, rhonchi, wheezing , prolonged expiration, prolonged inspiration - Cardiovascular Rhythm: irregularly irregular (permanent pacemaker.) Heart sounds: normal: S1, S2 Abnormal Heart Sounds: systolic murmur, no rub, no click - Gastrointestinal General gastrointestinal: normal bowel sounds, soft, no splenomegaly, generalized mild tenderness to left lower quadrant. - Integumentary Integumentary: normal, normal turgor - Neurologic Neurologic: CNII-XII intact - Musculoskeletal Musculoskeletal: gait normal, strength equal bilaterally - Psychiatric Psychiatric: A&O x's 3, appropriate affect, intact judgment & insight - Labs CBC & Chem 7: 01/15/18 06:16 01/15/18 06:16 Labs: Abnormal Lab Results - Last 24 Hours (Table) 01/15/18 01/15/18 Range/Units 06:16 06:16 Monocytes # (Manual) 1.11 H (0-1.0) k/uL Nucleated RBCs 1 H (0-0) /100 WBC Chloride 113 H (98-107) mmol/L Carbon Dioxide 21 L (22-30) mmol/L Calcium 7.9 L (8.4-10.2) mg/dL Phosphorus 1.4 L (2.5-4.5) mg/dL Microbiology - Last 24 Hours (Table) 01/09/18 20:15 Blood Culture - Preliminary Blood No Growth after 120 hours 01/12/18 20:16 Stool Culture - Preliminary Stool Assessment and Plan Assessment: Assessment and Plan Plan: 1. Acute colitis secondary to ischemic colitis, with lactic acidosis. Patient made nothing by mouth. Levaquin and Flagyl started. Consult with Dr. Balbuena appreciated. CTA of the abdomen and pelvis as above. Continue Zofran for nausea and morphine for pain control. Continue IV fluids at 50 mL per hour. 2. Acute GI bleed with stable hemoglobin. Continue to monitor hemoglobin. 3. Hypovolemic shock secondary to acute GI bleed requiring IV fluid resuscitation and transferred to the intensive care unit. No vasopressors. 4. History of CAD. Continue metoprolol 50 mg orally twice every day is on hold. 5. Hypertension and hypertensive cardiovascular disease. Lisinopril 5 mg orally once every day, metoprolol 50 mg orally twice every day on hold. 6. Hypothyroidism. Continue Synthroid 50 g orally once every day. 7. PAD post PTBI with stent placement of both lower extremities. Stable. Plavix on hold 8. Atrial fibrillation post-permanent pacemaker placement with episode of RVR. Patient required Cardizem drip. Xarelto on hold. Cardiology consult appreciated. 9. Chronic kidney disease stage III. Monitor kidney function. 10. DVT prophylaxis. 11. Gastrointestinal prophylaxis. Protonix. 12. Fluid overload. Discontinue IV fluid, Lasix 40 mg IV push 1.
[2018-01-15] MEDS: RIVAROXABAN 15 MG TAB PO SCH (16:44)
[2018-01-15] MEDS ORDERED: RIVAROXABAN 20 MG TAB PO SCH (17:30)
[2018-01-15] MEDS ORDERED: RIVAROXABAN 15 MG TAB PO SCH (17:30)
[2018-01-16] MEDS: LEVOTHYROXINE 50 MCG TAB PO SCH (06:34)
[2018-01-16 06:42] LABS: Calcium 7.9 mg/dL (8.4-10.2); Magnesium 1.7 mg/dL (1.6-2.3); Phosphorus 2.1 mg/dL (2.5-4.5); Potassium 3.3 mmol/L (3.5-5.1)
[2018-01-16 06:47] LABS: Basophils % (A) 0 %; Eosinophils # (A) 0.1 k/uL (0-0.7); Eosinophils % (A) 1 %; HCT 37.2 % (34.0-46.0); HGB 12.2 gm/dL (11.4-16.0); Lymphocytes # (A) 1.8 k/uL (1.0-4.8); Lymphocytes % (A) 23 %; MCH 29.8 pg (25.0-35.0); MCHC 32.8 g/dL (31.0-37.0); MCV 90.8 fL (80.0-100.0); Mean Platelet Volume 7.4; Monocytes # (A) 0.6 k/uL (0-1.0); Monocytes % (A) 7 %; Neutrophils # (A) 5.1 k/uL (1.3-7.7); Neutrophils % (A) 65 %; Platelet Count 178 k/uL (150-450); RDW 14.8 % (11.5-15.5); WBC 7.8 k/uL (3.8-10.6)
[2018-01-16] MEDS ORDERED: Potassium Replacement Protocol 1 EACH MISC MISCELLANE PRN (07:13)
[2018-01-16] MEDS: metroNIDAZOLE-NS PMX 500 MG in SALINE 1 100ML.BAG IVPB SCH ×3 (08:06→22:56)
[2018-01-16] MEDS: POTASSIUM CHLORIDE ER 20 MEQ TAB.ER PO SCH ×3 (08:06→10:34)
[2018-01-16] MEDS ORDERED: POTASSIUM CHLORIDE ER 20 MEQ TAB.ER PO STA (09:17)
[2018-01-16] MEDS: LEVOFLOXACIN 500MG-D5W PMX 500 MG in DEXTROSE/WATER 1 100ML.BAG IVPB SCH (10:26)
[2018-01-16] MEDS: PANTOPRAZOLE 40 MG/10 ML VIAL IVP SCH (10:26)
[2018-01-16] MEDS: NYSTATIN 100,000 UNIT/ML SUSP 500,000 UNIT/5 ML CUP PO SCH ×4 (10:26→20:45)
[2018-01-16] MEDS: POTASSIUM CHLORIDE ER 10 MEQ TAB.ER.PRT PO SCH (10:27)
--- NOTE | 2018-01-16 10:43 | P.PN ---
<Joana Faulkner M - Last Filed: 01/16/18 10:37> Subjective Progress Note Date: 01/16/18 82-year-old female sitting up in bed no new events. Patient reports feeling a little stronger still needs the assist of 2 to transfer from bed to bedside commode no frequent stooling document being followed by surgical service for colitis Objective - Vital Signs Vital signs: Vital Signs Temp 97.9 F 01/16/18 04:00 Pulse 110 H 01/16/18 04:00 Resp 18 01/16/18 04:00 BP 124/58 01/16/18 04:00 Pulse Ox 92 L 01/16/18 04:00 Intake & Output 01/15/18 01/16/18 01/16/18 18:59 06:59 18:59 Intake Total 880 200 Output Total 200 Balance 880 -200 200 Weight 78.6 kg Intake: IV 200 metroNIDAZOLE-NS PMX 500 200 mg In Saline 1 100ml.bag @ 100 mls/hr IVPB Q8HR [facility] Rx#:[id number] Oral 680 200 Output: Urine 200 Other: Voiding Method Bedside Commode # Voids 3 # Bowel Movements 3 - Exam Physical exam 82-year-old female sitting up in bed pleasant cooperative oriented to person and place getting stronger Lungs admission the bases otherwise adequate air movement sats 92% on room air Heart S1-S2 audible heart rate 110- 70 Abdomen soft nontender non-distended bowel tones noted no nausea no vomiting had 3 loose stools Extremities no edema - Labs CBC & Chem 7: 01/16/18 05:55 01/16/18 05:55 Labs: Abnormal Lab Results - Last 24 Hours (Table) 01/16/18 Range/Units 05:55 Potassium 3.3 L (3.5-5.1) mmol/L Chloride 110 H (98-107) mmol/L Creatinine 1.13 H (0.52-1.04) mg/dL Calcium 7.9 L (8.4-10.2) mg/dL Phosphorus 2.1 L (2.5-4.5) mg/dL Microbiology - Last 24 Hours (Table) 01/12/18 20:16 Stool Culture - Final Stool 01/09/18 20:15 Blood Culture - Final Blood No Growth after 144 hours Assessment and Plan Assessment: Impression Acute colitis suspect due to ischemic colitis. Improving Acute GI bleed hemoglobin stable History of coronary artery disease chronic atril fibrillation with episodes of RVR Hypovolemic shock secondary to acute acute GI bleed requiring IV fluid resuscitation and transferred to the intensive care unit. No vasopressors. Debilitated Electrolyte imbalance hypokalemia Plan Potassium replaced Continue IV Levaquin and Flagyl as ordered Increase activity Will follow with you further recommendations Advance diet as tolerated PT OT The above impression and plan of care have been discussed and directed by signing physician. Joana Faulkner nurse practitioner acting as scribe for signing physician. <Ilan Balbuena - Last Filed: 01/16/18 11:02> Objective - Vital Signs Vital signs: Vital Signs Temp 97.9 F 01/16/18 04:00 Pulse 110 H 01/16/18 04:00 Resp 18 01/16/18 04:00 BP 124/58 01/16/18 04:00 Pulse Ox 92 L 01/16/18 04:00 Intake & Output 01/15/18 01/16/18 01/16/18 18:59 06:59 18:59 Intake Total 880 200 Output Total 200 Balance 880 -200 200 Weight 78.6 kg Intake: IV 200 metroNIDAZOLE-NS PMX 500 200 mg In Saline 1 100ml.bag @ 100 mls/hr IVPB Q8HR [facility] Rx#:[id number] Oral 680 200 Output: Urine 200 Other: Voiding Method Bedside Commode # Voids 3 # Bowel Movements 3 - Labs CBC & Chem 7: 01/16/18 05:55 01/16/18 05:55 Labs: Abnormal Lab Results - Last 24 Hours (Table) 01/16/18 Range/Units 05:55 Potassium 3.3 L (3.5-5.1) mmol/L Chloride 110 H (98-107) mmol/L Creatinine 1.13 H (0.52-1.04) mg/dL Calcium 7.9 L (8.4-10.2) mg/dL Phosphorus 2.1 L (2.5-4.5) mg/dL Microbiology - Last 24 Hours (Table) 01/12/18 20:16 Stool Culture - Final Stool 01/09/18 20:15 Blood Culture - Final Blood No Growth after 144 hours Assessment and Plan Assessment: As above. Patient denies abdominal pain today. She is tolerating her low fiber diet. Patient mainly has complaints of weakness. Would continue antibiotics for now. Continue low fiber diet. Advise outpatient follow-up to discuss possible colonoscopy electively. We'll sign off at this point. Please contact if needed. (1) Colitis Current Visit: Yes Status: Acute Code(s): K52.9 - NONINFECTIVE GASTROENTERITIS AND COLITIS, UNSPECIFIED SNOMED Code(s): 90977450
[2018-01-16] MEDS: METOPROLOL SUCCINATE (ER) 25 MG TAB.ER.24H PO SCH (10:46)
--- NOTE | 2018-01-16 12:21 | P.PN ---
Subjective This is a pleasant 82-year-old female seen and examined resting comfortably in bed. Anticoagulation has been resumed as of last night. She denies any further black or bloody stools. She denies symptoms of chest discomfort, shortness of breath, palpitations or dizziness. Hemoglobin 12.2, platelets 178, sodium 138, potassium 3.3, magnesium 1.7 and creatinine 1.13. Blood pressure 06/23/1956 heart rate 110. She is currently on Toprol 25 mg twice a day. Objective - Vital Signs Vital signs: Vital Signs Temp 97.9 F 01/16/18 04:00 Pulse 110 H 01/16/18 04:00 Resp 18 01/16/18 04:00 BP 124/58 01/16/18 04:00 Pulse Ox 92 L 01/16/18 04:00 Intake & Output 01/15/18 01/16/18 01/16/18 18:59 06:59 18:59 Intake Total 880 200 Output Total 200 Balance 880 -200 200 Weight 78.6 kg Intake: IV 200 metroNIDAZOLE-NS PMX 500 200 mg In Saline 1 100ml.bag @ 100 mls/hr IVPB Q8HR [facility] Rx#:[id number] Oral 680 200 Output: Urine 200 Other: Voiding Method Bedside Commode # Voids 3 # Bowel Movements 3 - Exam GENERAL: Well-appearing, well-nourished and in no acute distress. NECK: Supple without JVD or thyromegaly. LUNGS: Breath sounds clear to auscultation bilaterally. Respiration equal and unlabored. No wheezes, rales or rhonchi. Diminished. HEART: Irregular rate and rhythm with systolic ejection murmur, no rubs or gallops. S1 and S2 heard. EXTREMITIES: Normal range of motion, no edema. No clubbing or cyanosis. Peripheral pulses intact. - Labs CBC & Chem 7: 01/16/18 05:55 01/16/18 05:55 Labs: Abnormal Lab Results - Last 24 Hours (Table) 01/16/18 Range/Units 05:55 Potassium 3.3 L (3.5-5.1) mmol/L Chloride 110 H (98-107) mmol/L Creatinine 1.13 H (0.52-1.04) mg/dL Calcium 7.9 L (8.4-10.2) mg/dL Phosphorus 2.1 L (2.5-4.5) mg/dL Microbiology - Last 24 Hours (Table) 01/12/18 20:16 Stool Culture - Final Stool 01/09/18 20:15 Blood Culture - Final Blood No Growth after 144 hours Assessment and Plan Assessment: ASSESSMENT Acute colitis possible ischemic colitis Paroxysmal atrial fibrillation on long-term anticoagulation resumed yesterday with stable hemoglobin. History of coronary artery disease Hypertension Chronic kidney disease, stage III PLAN Increase Toprol to 50 mg twice a day which was her home dose. Continue anticoagulation as was previously ordered. Hemoglobin has been stable. No further episodes of black or bloody stools per the patient. Further recommendations to follow based upon clinical course. Nurse Practitioner note has been reviewed, I agree with a documented findings and plan of care. Patient was seen and examined.
--- NOTE | 2018-01-16 13:34 | P.PN ---
Subjective Progress Note Date: 01/16/18 This is an 82-year-old female one of Dr. Kirkpatrick with a previous medical history significant for hypertension and hypertensive cardiovascular disease, atrial flutter/fibrillation status post permanent pacemaker placement on xarelto, history of previous CVA, CAD status post microinfarction in the past , PVD status post stents by Dr. Cotton in both lower extremities last one was about 09/03/2015, admission February 2017 for acute kidney injury secondary to aggressive diuresis. Patient is complaining of lower abdominal pain that is severe and feeling that she needs to have a bowel movement but is unable to do that. She has had several episodes of vomiting. Onset of symptoms were yesterday. No fever or chills she denies any diarrhea. She denies any chest pain or shortness of breath. She came into [facility] emergency center by EMS. She was found to be afebrile with stable vital signs, leukocytosis of 14.5, BUN 20 creatinine 1.4 and potassium 3.3. Blood sugar was 130. Amylase 307, lipase 133, troponin was normal. Lactic acid was 2.9. Urinalysis was cloudy, trace blood, nitrate negative, leukoesterase small, bacteria moderate. She had a chest x-ray shows no acute cardiopulmonary process. CT of the abdomen and pelvis without contrast shows diffuse wall thickening of the left colon compared to old exam consistent with nonspecific colitis. She large bowel with air-fluid levels consistent with ileus. No evidence of an abscess. Extensive colonic diverticulosis. Patient was given IV ceftriaxone, Reglan and Flagyl status post 2 L of IV fluid and admitted to the [facility] floor. Patient is nothing by mouth. A consult with Dr. Balbuena requested and repeat abdominal x-rays. 01/11: Patient has been seen by Dr. Balbuena with recommendations to continue antibiotics for suspected ischemic colitis and clear liquid diet. He has ordered CTA of the abdomen and pelvis. Last evening, patient had 2 bloody bowel movements and abdominal pain became severe she was nauseated and had emesis. She had a drop in her blood pressure to systolic of 60 and she was transferred to the intensive care unit. She apparently had one bloody stool in ICU. She has been treated with 2-1/2 L of IV fluids. He has not required vasopressors. Her initial lactic acid was 3.3 now improved to 1.3. She also went into rapid ventricular response A. fib. She is currently in a paced rhythm and rate controlled. Cardiology consult was added and patient is on a Cardizem drip. Is also consult with intensive care management. 01/12: CTA of the abdomen and pelvis showed left colon wall thickening and surrounding fat stranding consistent with nonspecific colitis that is worse than last CT on 01/09/2018. This could be ischemic colitis. Atherosclerotic vascular disease. Increase in fluid and thickening in the posterior left paracolic gutter compared to old exam. Repeat chest x-ray shows no acute findings. White count has increased to 14.8. Hemoglobin is stable at 13. Creatinine is 1.2. Capillary blood glucose running between 70 and 129. She states that she has had some nausea and vomiting and saw Dr. Balbuena this morning and patient will be switched from clears to nothing by mouth. Dr. Balbuena discussing case with Dr. Cotton. 01/13: Patient remains in the intensive care unit. Heart rate is running in the 1 teens as paced atrial fibrillation. Patient had vomiting continued until last evening. She tolerated clear liquids for dinner and for breakfast this morning. She denies having any nausea at this time. She has had a bowel movement. Myrick catheter in place. Anticipate patient is ready for transfer out of the intensive care unit. She is on a Cardizem drip. Abdominal tenderness to the left lower quadrant today. 01/14: Patient remains in intensive care unit. She does state that she is feeling better today. Abdominal pain is improving. She is on a full liquid diet and tolerating this. White count is at 12.1 and hemoglobin is stable at 14. She remains on Cardizem drip for atrial fibrillation running in the low 100 and teens. Patient to be transferred to the selective care unit. She was ordered for 1 dose of IV Lasix 20 mg and IV fluids decreased to 50 mL per hour. 01/15: Patient is complaining of increased shortness of breath, her chest x-ray showed bilateral atelectasis, however she has significant edema both lower extremities and upper extremities, we will Hep-Lock her IV and give the patient Lasix 40 mg IV push 1, reevaluate in the next 24 hours. 01/16: Patient is feeling a lot better today she denies any chest pain is she is less short of breath, she was taken off her IV fluid, she did receive a Lasix yesterday she did receive potassium supplement because of hypokalemia, she continues to have minimal swelling in both lower extremities. Objective - Vital Signs Vital signs: Vital Signs Temp 97.9 F 01/16/18 04:00 Pulse 110 H 01/16/18 04:00 Resp 18 01/16/18 04:00 BP 124/58 01/16/18 04:00 Pulse Ox 92 L 01/16/18 04:00 Intake & Output 01/15/18 01/16/18 01/16/18 18:59 06:59 18:59 Intake Total 880 200 Output Total 200 Balance 880 -200 200 Weight 78.6 kg Intake: IV 200 metroNIDAZOLE-NS PMX 500 200 mg In Saline 1 100ml.bag @ 100 mls/hr IVPB Q8HR [facility] Rx#:[id number] Oral 680 200 Output: Urine 200 Other: Voiding Method Bedside Commode # Voids 3 # Bowel Movements 3 - Exam - Exam General appearance: average body habitus, no acute distress - EENT Eyes: anicteric sclerae, EOMI, PERRLA, no ptosis, no scleral icterus, normal appearance ENT: hearing grossly normal, NA/AT, normal oropharynx, no thrush Ears: bilateral: normal - Neck Neck: no lymphadenopathy, normal ROM, no rigidity, no stridor, no thyromegaly Carotids: bilateral: upstroke normal Thyroid: bilateral: normal size - Respiratory Respiratory: bilateral: diminished, negative: dullness, rales, rhonchi, wheezing , prolonged expiration, prolonged inspiration - Cardiovascular Rhythm: irregularly irregular (permanent pacemaker.) Heart sounds: normal: S1, S2 Abnormal Heart Sounds: systolic murmur, no rub, no click - Gastrointestinal General gastrointestinal: normal bowel sounds, soft, no splenomegaly, generalized mild tenderness to left lower quadrant. - Integumentary Integumentary: normal, normal turgor - Neurologic Neurologic: CNII-XII intact - Musculoskeletal Musculoskeletal: gait normal, strength equal bilaterally - Psychiatric Psychiatric: A&O x's 3, appropriate affect, intact judgment & insight - Labs CBC & Chem 7: 01/16/18 05:55 01/16/18 05:55 Labs: Abnormal Lab Results - Last 24 Hours (Table) 01/16/18 Range/Units 05:55 Potassium 3.3 L (3.5-5.1) mmol/L Chloride 110 H (98-107) mmol/L Creatinine 1.13 H (0.52-1.04) mg/dL Calcium 7.9 L (8.4-10.2) mg/dL Phosphorus 2.1 L (2.5-4.5) mg/dL Microbiology - Last 24 Hours (Table) 01/12/18 20:16 Stool Culture - Final Stool 01/09/18 20:15 Blood Culture - Final Blood No Growth after 144 hours Assessment and Plan Assessment: Assessment and Plan Plan: 1. Acute colitis secondary to ischemic colitis, with lactic acidosis. Patient diet has been advanced to regular diet with low residue, continue with Levaquin and Flagyl, increase activity and ask physical therapy to see the patient. 2. Acute GI bleed with stable hemoglobin. Continue to monitor hemoglobin. 3. Hypovolemic shock secondary to acute GI bleed requiring IV fluid resuscitation and transferred to the intensive care unit. No vasopressors. 4. History of CAD. Continue metoprolol 50 mg orally twice every day is on hold. 5. Hypertension and hypertensive cardiovascular disease. Lisinopril 5 mg orally once every day, metoprolol 50 mg orally twice every day on hold. 6. Hypothyroidism. Continue Synthroid 50 g orally once every day. 7. PAD post PTBI with stent placement of both lower extremities. Stable. Plavix on hold 8. Atrial fibrillation post-permanent pacemaker placement with episode of RVR. Patient required Cardizem drip. Xarelto on hold. Cardiology consult appreciated. 9. Chronic kidney disease stage III. Monitor kidney function. 10. DVT prophylaxis. 11. Gastrointestinal prophylaxis. Protonix. 12. Fluid overload. Discontinue IV fluid, monitor the patient weight on a daily basis. 13. Physical therapy evaluation.
[2018-01-16] MEDS ORDERED: METOPROLOL SUCCINATE (ER) 25 MG TAB.ER.24H PO STA (16:51)
[2018-01-16] MEDS: RIVAROXABAN 15 MG TAB PO SCH (17:27)
[2018-01-16] MEDS: METOPROLOL SUCCINATE (ER) 50 MG TAB.ER.24H PO SCH (20:45)
[2018-01-16] MEDS ORDERED: FUROSEMIDE 10 MG/ML 4 ML VIAL IV STA (20:45)
[2018-01-16] MEDS: ONDANSETRON 4 MG/2 ML VIAL IVP PRN (21:12)
[2018-01-17] MEDS: traMADol 50 MG TAB PO PRN (00:03)
[2018-01-17] MEDS ORDERED: FAMOTIDINE 20 MG/2 ML VIAL IV PRN ×2 (03:37→10:31)
[2018-01-17 06:32] LABS: Basophils % (A) 0 %; Eosinophils # (A) 0.1 k/uL (0-0.7); Eosinophils % (A) 1 %; HCT 39.2 % (34.0-46.0); HGB 12.5 gm/dL (11.4-16.0); Lymphocytes # (A) 1.8 k/uL (1.0-4.8); Lymphocytes % (A) 18 %; MCH 29.3 pg (25.0-35.0); MCHC 31.7 g/dL (31.0-37.0); MCV 92.2 fL (80.0-100.0); Mean Platelet Volume 6.9; Monocytes # (A) 0.5 k/uL (0-1.0); Monocytes % (A) 5 %; Neutrophils # (A) 6.9 k/uL (1.3-7.7); Neutrophils % (A) 72 %; Platelet Count 214 k/uL (150-450); RBC 4.25 m/uL (3.80-5.40); RDW 15.4 % (11.5-15.5); WBC 9.6 k/uL (3.8-10.6)
[2018-01-17] MEDS: LEVOTHYROXINE 50 MCG TAB PO SCH (06:35)
[2018-01-17 06:40] LABS: Albumin 2.3 g/dL (3.5-5.0); Calcium 8.2 mg/dL (8.4-10.2); Magnesium 1.6 mg/dL (1.6-2.3); Potassium 3.7 mmol/L (3.5-5.1); Total Bilirubin 0.4 mg/dL (0.2-1.3); Total Protein 4.8 g/dL (6.3-8.2)
[2018-01-17] MEDS ORDERED: POTASSIUM CHLORIDE ER 20 MEQ TAB.ER PO SCH (09:00)
[2018-01-17] MEDS ORDERED: FUROSEMIDE 40 MG TAB PO SCH (09:00)
[2018-01-17] MEDS: metroNIDAZOLE-NS PMX 500 MG in SALINE 1 100ML.BAG IVPB SCH (09:23)
[2018-01-17] MEDS: NYSTATIN 100,000 UNIT/ML SUSP 500,000 UNIT/5 ML CUP PO SCH ×2 (09:24→12:35)
[2018-01-17] MEDS: PANTOPRAZOLE 40 MG/10 ML VIAL IVP SCH (09:24)
[2018-01-17] MEDS: METOPROLOL SUCCINATE (ER) 50 MG TAB.ER.24H PO SCH (09:24)
--- NOTE | 2018-01-17 09:29 | CDI ---
Last Revision, April 2017 Documentation Clarification Form Date: 01/17/18 From: Cheryl Calderón RN Admit Date: 01/10/2018 12:06:00 AM Patient Name: Rohini Hansen Visit Number: [id number] ATTENTION: The Clinical Documentation Specialists (CDI) and [facility] Coding Staff appreciate your assistance in clarifying documentation. Please respond to the clarification below the line at the bottom and electronically sign. The CDI & [facility] Coding staff will review the response and follow-up if needed. Please note: Queries are made part of the Legal Health Record. If you have any questions, please contact the author of this message via ITS. Dr. Phillip Ponce MD, Can you please render your opinion on the following documentation? Patient was admitted with complaining of severe abdominal pain, acute colitis possible ischemic colitis, and possible ileus. Heart failure is documented throughout the chart. History/Risk Factors: fib, a flutter, CAD, COPD, CVA/TIA, HTN, hyperlipidemia, liver disease, hypothyroidism, vascular, heart failure Clinical Indicators: VS/Pulse OX: 96% on 3L Echocardiogram Results: moderate pulmonary HTN, EF 55-60% Chest X Ray: 01/14 Persistent cardiomegaly with central vascular congestion may be on basis of CHF exacerbation. PN 01/15 states " Patient is complaining of increased shortness of breath, she has significant edema both lower extremities and upper extremities. Treatment: Lasix 20mg PO daily, IV 20 mg given and IV 40 mg given, Lisinopril 5mg daily, Metoprolol 50mg PO, Daily weights In your professional opinion, can you please clarify the acuity and type of CHF if known? Systolic Heart Failure: Acute Chronic Acute on Chronic Diastolic Heart Failure: Acute Chronic Acute on Chronic Systolic & Diastolic Heart Failure: Acute Chronic Acute on Chronic Heart Failure Unable to Determine Other, please specify Please continue to document in your progress notes, under the line below and/or in the discharge summary in order to capture severity of illness and risk of mortality. Include clinical findings that support your diagnosis. MTDD
[2018-01-17] MEDS: LEVOFLOXACIN 500MG-D5W PMX 500 MG in DEXTROSE/WATER 1 100ML.BAG IVPB SCH (09:30)
[2018-01-17] MEDS ORDERED: LEVOFLOXACIN 500 MG TAB PO SCH (10:15)
[2018-01-17] MEDS ORDERED: LEVOFLOXACIN 250 MG TAB PO SCH (11:39)
--- NOTE | 2018-01-17 12:25 | P.PN ---
Subjective Progress Note Date: 01/17/18 This is an 82-year-old female admitted to the hospital primarily with abdominal pain, currently being treated for ischemic colitis. Cardiology was seeing the patient because of atrial fibrillation, patient had had a bloody bowel movement and for this reason her anticoagulation had been placed on hold. I did speak with Dr. belle today who inferred that the patient could be reinitiated on anticoagulation. We will restart reinitiate her xarelto at the same dose that she was taking at home. Continue to monitor hemoglobin closely. Overall she states she's feeling somewhat better today. Hemodynamically stable. 01/17/2018 Patient seen and examined this morning, she states she has some abdominal discomfort last night, she did move her bowels, abdominal discomfort was much better this morning. Heart rate this morning in the low 100s, we'll increase her beta usha to a 3 times a day dose. Objective - Vital Signs Vital signs: Vital Signs Temp 97.3 F L 01/17/18 09:15 Pulse 110 H 01/17/18 09:15 Resp 16 01/17/18 09:15 BP 122/83 01/17/18 09:15 Pulse Ox 95 01/17/18 09:15 Intake & Output 01/16/18 01/17/18 01/17/18 18:59 06:59 18:59 Intake Total 1979 240 Output Total 1100 Balance 1979 -1099 240 Weight 71.8 kg Intake: IV 200 metroNIDAZOLE-NS PMX 500 200 mg In Saline 1 100ml.bag @ 100 mls/hr IVPB Q8HR SERGIO Rx#:[id number] Intake, IV Titration 100 Amount Levofloxacin 500Mg-D5w 100 Pmx 500 mg In Dextrose/ Water 1 100ml.bag @ 100 mls/hr IVPB Q24HR SERGIO Rx# :[id number] Oral 1680 240 Output: Urine 1100 Other: Voiding Method Bedside Commode Bedside Commode # Voids 1 1 # Bowel Movements 1 1 - Exam PHYSICAL EXAMINATION: GENERAL: 82-year-old female in no acute distress at the time of my examination HEENT: Head is atraumatic, normocephalic. Pupils equal, round. Sclera anicteric. Conjunctiva are clear. Mucous membranes of the mouth are moist. Neck is supple. There is no elevated jugular venous pressure.] bruit is heard. HEART EXAMINATION: Heart S1 S2 1 systolic murmur is heard. CHEST EXAMINATION: His reveal diminished air entry with scattered wheezing throughout. ABDOMEN: Soft, nontender. Bowel sounds are heard. No organomegaly noted. EXTREMITIES: 2+ peripheral pulses with no evidence of peripheral edema and no calf tenderness noted. NEUROLOGIC patient is awake, alert and oriented ?-3. . - Labs CBC & Chem 7: 01/17/18 06:01 01/17/18 06:01 Labs: Abnormal Lab Results - Last 24 Hours (Table) 01/17/18 Range/Units 06:01 Glucose 112 H (74-99) mg/dL Calcium 8.2 L (8.4-10.2) mg/dL Total Protein 4.8 L (6.3-8.2) g/dL Albumin 2.3 L (3.5-5.0) g/dL Microbiology - Last 24 Hours (Table) 01/12/18 20:16 Stool Culture - Final Stool Assessment and Plan Plan: Assessment and Plan Plan: 1. Acute colitis, possible ischemic colitis, 2. History of CAD. 3. Hypertension 4. Hypothyroidism. 5. PAD post PTBI with stent placement of both lower extremities. Stable. 6. Atrial fibrillation, paroxysmal, and post-permanent pacemaker placement. Continue metoprolol 50 mg orally twice every day as well as Xarelto 15 mg orally once every day. 7. Chronic kidney disease stage III. Monitor kidney function. From cardiology's perspective, we will increase the dose of beta usha to 3 times a day, continue the rest of the patient's medications. She may be transferred to rehab tomorrow. We will follow her now with you on an as-needed basis only, please don't hesitate to call with any questions. DNP note has been reviewed, I agree with a documented findings and plan of care. Patient was seen and examined.
--- NOTE | 2018-01-17 12:51 | P.DS ---
Providers Date of admission: 01/10/18 00:06 Expected date of discharge: 01/17/18 Attending physician: Mj Díaz Consults: 01/10/18 09:33 Consult Physician Routine Consulting Provider: Ilan Balbuena Consult Reason/Comments: ileus Do you want consulting provider notified?: Yes 01/10/18 21:30 Consult Physician Stat Consulting Provider: Fazal Caraballo Consult Reason/Comments: icu managment Do you want consulting provider notified?: Yes 01/11/18 00:16 Consult Physician Stat Consulting Provider: Lamberto Palmer Consult Reason/Comments: afib RVR Do you want consulting provider notified?: Yes Primary care physician: [facility] Course: This is an 82-year-old female one of Dr. Kirkpatrick with a previous medical history significant for hypertension and hypertensive cardiovascular disease, atrial flutter/fibrillation status post permanent pacemaker placement on xarelto, history of previous CVA, CAD status post microinfarction in the past , PVD status post stents by Dr. Cotton in both lower extremities last one was about 09/03/2015, admission February 2017 for acute kidney injury secondary to aggressive diuresis. Patient is complaining of lower abdominal pain that is severe and feeling that she needs to have a bowel movement but is unable to do that. She has had several episodes of vomiting. Onset of symptoms were yesterday. No fever or chills she denies any diarrhea. She denies any chest pain or shortness of breath. She came into [facility] emergency center by EMS. She was found to be afebrile with stable vital signs, leukocytosis of 14.5, BUN 20 creatinine 1.4 and potassium 3.3. Blood sugar was 130. Amylase 307, lipase 133, troponin was normal. Lactic acid was 2.9. Urinalysis was cloudy, trace blood, nitrate negative, leukoesterase small, bacteria moderate. She had a chest x-ray shows no acute cardiopulmonary process. CT of the abdomen and pelvis without contrast shows diffuse wall thickening of the left colon compared to old exam consistent with nonspecific colitis. She large bowel with air-fluid levels consistent with ileus. No evidence of an abscess. Extensive colonic diverticulosis. Patient was given IV ceftriaxone, Reglan and Flagyl status post 2 L of IV fluid and admitted to the [facility] floor. Patient is nothing by mouth. A consult with Dr. Balbuena requested and repeat abdominal x-rays. 01/11: Patient has been seen by Dr. Balbuena with recommendations to continue antibiotics for suspected ischemic colitis and clear liquid diet. He has ordered CTA of the abdomen and pelvis. Last evening, patient had 2 bloody bowel movements and abdominal pain became severe she was nauseated and had emesis. She had a drop in her blood pressure to systolic of 60 and she was transferred to the intensive care unit. She apparently had one bloody stool in ICU. She has been treated with 2-1/2 L of IV fluids. He has not required vasopressors. Her initial lactic acid was 3.3 now improved to 1.3. She also went into rapid ventricular response A. fib. She is currently in a paced rhythm and rate controlled. Cardiology consult was added and patient is on a Cardizem drip. Is also consult with intensive care management. 01/12: CTA of the abdomen and pelvis showed left colon wall thickening and surrounding fat stranding consistent with nonspecific colitis that is worse than last CT on 01/09/2018. This could be ischemic colitis. Atherosclerotic vascular disease. Increase in fluid and thickening in the posterior left paracolic gutter compared to old exam. Repeat chest x-ray shows no acute findings. White count has increased to 14.8. Hemoglobin is stable at 13. Creatinine is 1.2. Capillary blood glucose running between 70 and 129. She states that she has had some nausea and vomiting and saw Dr. Balbuena this morning and patient will be switched from clears to nothing by mouth. Dr. Balbuena discussing case with Dr. Cotton. 01/13: Patient remains in the intensive care unit. Heart rate is running in the 1 teens as paced atrial fibrillation. Patient had vomiting continued until last evening. She tolerated clear liquids for dinner and for breakfast this morning. She denies having any nausea at this time. She has had a bowel movement. Myrick catheter in place. Anticipate patient is ready for transfer out of the intensive care unit. She is on a Cardizem drip. Abdominal tenderness to the left lower quadrant today. 01/14: Patient remains in intensive care unit. She does state that she is feeling better today. Abdominal pain is improving. She is on a full liquid diet and tolerating this. White count is at 12.1 and hemoglobin is stable at 14. She remains on Cardizem drip for atrial fibrillation running in the low 100 and teens. Patient to be transferred to the selective care unit. She was ordered for 1 dose of IV Lasix 20 mg and IV fluids decreased to 50 mL per hour. 01/15: Patient is complaining of increased shortness of breath, her chest x-ray showed bilateral atelectasis, however she has significant edema both lower extremities and upper extremities, we will Hep-Lock her IV and give the patient Lasix 40 mg IV push 1, reevaluate in the next 24 hours. 01/16: Patient is feeling a lot better today she denies any chest pain is she is less short of breath, she was taken off her IV fluid, she did receive a Lasix yesterday she did receive potassium supplement because of hypokalemia, she continues to have minimal swelling in both lower extremities. 01/17: Patient states that she did not sleep well she had to get up to the bathroom frequently during the night. Heart rate is running in the 1 teens and cardiology has increased her beta usha. Discussed discharge planning with patient and she is willing to go to subacute rehab, [facility], and we will make arrangements for this to occur today if possible. W BC count is normal at 9.6, hemoglobin is 12.5, elective lites are within normal limits, BUN 10 and creatinine 1.0 Discharge diagnoses: 1. Acute colitis secondary to ischemic colitis, with lactic acidosis. 2. Acute GI bleed with stable hemoglobin. 3. Hypovolemic shock secondary to acute GI bleed 4. History of CAD. 5. Hypertension and hypertensive cardiovascular disease. 6. Hypothyroidism. 7. PAD post PTBI with stent placement of both lower extremities. 8. Atrial fibrillation post-permanent pacemaker placement with episode of RVR. 9. Chronic kidney disease stage III. 10. Fluid overload. Discharge plan: [facility] Impression and plan of care have been directed as dictated by the signing physician. Bette Copeland nurse practitioner acting as scribe for signing physician. Patient Condition at Discharge: Good Plan - Discharge Summary New Discharge Prescriptions: New Furosemide [Lasix] 40 mg PO DAILY tab Levofloxacin [Levaquin] 500 mg PO DAILY #3 tab Metoprolol Succinate (ER) [Toprol XL] 50 mg PO TID tab.er.24h metroNIDAZOLE [Flagyl] 500 mg PO TID #9 tab Nystatin 100,000 Unit/ml Susp [Mycostatin Oral Susp] 500,000 unit PO QID cup Potassium Chloride ER [K-Dur 20] 20 meq PO DAILY tab.er.prt Rivaroxaban [Xarelto] 15 mg PO W/SUPPER tab Continue Levothyroxine Sodium [Synthroid] 50 mcg PO DAILY Rosuvastatin [Crestor] 20 mg PO HS Famotidine [Pepcid] 20 mg PO DAILY #0 traMADol HCL [Ultram] 50 mg PO Q12H PRN #6 tablet PRN Reason: Pain Discontinued Lisinopril [Zestril] 5 mg PO HS Clopidogrel [Plavix] 75 mg PO DAILY #90 tab Rivaroxaban [Xarelto] 20 mg PO HS Furosemide [Lasix] 20 mg PO DAILY #0 Potassium Chloride [K-Tab ER] 10 meq PO DAILY Metoprolol Succinate [Toprol Xl] 50 mg PO BID Discharge Medication List Levothyroxine Sodium [Synthroid] 50 mcg PO DAILY 11/07/14 [History] Rosuvastatin [Crestor] 20 mg PO HS 10/09/16 [History] Famotidine [Pepcid] 20 mg PO DAILY #0 03/11/17 [Rx] Furosemide [Lasix] 40 mg PO DAILY tab 01/17/18 [Rx] Levofloxacin [Levaquin] 500 mg PO DAILY #3 tab 01/17/18 [Rx] Metoprolol Succinate (ER) [Toprol XL] 50 mg PO TID tab.er.24h 01/17/18 [Rx] Nystatin 100,000 Unit/ml Susp [Mycostatin Oral Susp] 500,000 unit PO QID cup [Rx] Potassium Chloride ER [K-Dur 20] 20 meq PO DAILY tab.er.prt 01/17/18 [Rx] Rivaroxaban [Xarelto] 15 mg PO W/SUPPER tab 01/17/18 [Rx] metroNIDAZOLE [Flagyl] 500 mg PO TID #9 tab 01/17/18 [Rx] traMADol HCL [Ultram] 50 mg PO Q12H PRN #6 tablet 01/17/18 [Rx] Follow up Appointment(s)/Referral(s): Ilan Balbuena MD [Medical Doctor] - 02/02/18 2:40 pm Bertram Kirkpatrick MD [Primary Care Provider] - 01/18/18 2:00 pm Discharge Disposition: TRANSFER TO SNF/ECF
[2018-01-17 15:34] VITALS: BP 101/65; PULSE 102; RESP 20; TEMP 97.7
[2018-01-17] MEDS ORDERED: METOPROLOL SUCCINATE (ER) 50 MG TAB.ER.24H PO SCH (16:00)
[2018-01-17] MEDS ORDERED: metroNIDAZOLE 500 MG TAB PO SCH (16:00)
--- NOTE | 2018-01-18 13:26 | CDI ---
Last Revision, April 2017 Documentation Clarification Form Date: 01/18/18 From: Madeleine Satnam Merleen Barajas, [employer] Hours-8:30 am & 5 pm M-Brianna Admit Date: 01/10/2018 12:06:00 AM Patient Name: Rohini Hansen Visit Number: [id number] Discharge Date: 01/17/18 ATTENTION: The Clinical Documentation Specialists (CDI) and [facility] Coding Staff appreciate your assistance in clarifying documentation. Please respond to the clarification below the line at the bottom and electronically sign. The CDI & [facility] Coding staff will review the response and follow-up if needed. Please note: Queries are made part of the Legal Health Record. If you have any questions, please contact the author of this message via ITS. Mj Gentile MD Possible sepsis is documented in the ED note, PNs-01/13, 01/14 & 01/15. History/Risk Factors: ischemic colitis, GI bleed, hypovolemic shock, A/C diastolic CHF WBC/Left Shift: 14.5/7.9; Lactic acid: 2.9, 3.3, 2.6; Blood cultures: no growth Vitals signs on admission: T-97.7, P-82, R-16, BP-140/79, O2 Sat-94 Treatment: IV Rocephin, IV Levofloxacin, IV Flagyl In your professional opinion, please clarify if these findings signify one of the following conditions: Sepsis ruled out SIRS, without underlying infectious process Sepsis Severe Sepsis Other, please specify Unable to determine Please continue to document in your progress notes and discharge summary in order to capture severity of illness and risk of mortality. Include clinical findings that support your diagnosis. MTDD
--- NOTE | 2018-01-18 13:36 | CDI ---
Last Revision, April 2017 Documentation Clarification Form Date: 01/18/18 From: Madeleine Satnam Merlene Barajas, [employer] Hours-8:30 am & 5 pm Jason Admit Date: 01/10/2018 12:06:00 AM Patient Name: Rohini Hansen Visit Number: [id number] Discharge Date: 01/17/18 ATTENTION: The Clinical Documentation Specialists (CDI) and [facility] Coding Staff appreciate your assistance in clarifying documentation. Please respond to the clarification below the line at the bottom and electronically sign. The CDI & [facility] Coding staff will review the response and follow-up if needed. Please note: Queries are made part of the Legal Health Record. If you have any questions, please contact the author of this message via ITS. Mj Gentile MD Per history of present illness the patient had a previous episode of acute kidney injury due to aggressive diuresis. Her Cr were elevated on admission. History/Risk Factors: Clinical Indicators: Curent Cr: 1.40, 1.50, 1.48, 1.40,1.20, 1.00, .90, .97, 1.13, 1.00 Current BUN: 20, 25, 25, 23, 19, 13, 9, 9, 11, 10 Current GFR: >60 (for all of them) IV fluids In order to capture the severity of condition, please clarify if the condition signifies: Tubular Necrosis Acute kidney injury Unable to determine Please continue to document in your progress notes and discharge summary in order to capture severity of illness and risk of mortality. Include clinical findings that support your diagnosis. MTDD
== END 2018-01-17 16:06 | DRG 393 ==
LOC: EC 20:04 → 4MS4W 01-10 00:06 → 6ICU 01-10 21:37 → 6SEL 01-14 17:57
PROVIDERS: ADMIT Internal Medicine; ATTEND Internal Medicine
DX: K55.039 Acute (reversible) ischemia of large intestine, extent unspecified (principal); R57.1 Hypovolemic shock; I50.33 Acute on chronic diastolic (congestive) heart failure; I13.0 Hypertensive heart and chronic kidney disease with heart failure and stage 1 through stage 4 chronic kidney disease, or unspecified chronic kidney disease; K56.7 Ileus, unspecified; E87.2 Acidosis; J98.11 Atelectasis; R17 Unspecified jaundice; B37.0 Candidal stomatitis; N17.9 Acute kidney failure, unspecified; I48.92 Unspecified atrial flutter; I48.2 Chronic atrial fibrillation; J44.9 Chronic obstructive pulmonary disease, unspecified; N18.3 Chronic kidney disease, stage 3 (moderate); I73.9 Peripheral vascular disease, unspecified; R13.10 Dysphagia, unspecified; E87.6 Hypokalemia; I49.3 Ventricular premature depolarization; B19.20 Unspecified viral hepatitis C without hepatic coma; K57.30 Diverticulosis of large intestine without perforation or abscess without bleeding; I25.10 Atherosclerotic heart disease of native coronary artery without angina pectoris; E78.5 Hyperlipidemia, unspecified; E03.9 Hypothyroidism, unspecified; M19.91 Primary osteoarthritis, unspecified site; I25.2 Old myocardial infarction; Z79.02 Long term (current) use of antithrombotics/antiplatelets; Z79.01 Long term (current) use of anticoagulants; Z79.890 Hormone replacement therapy; Z79.899 Other long term (current) drug therapy; Z86.73 Personal history of transient ischemic attack (TIA), and cerebral infarction without residual deficits; Z87.442 Personal history of urinary calculi; Z90.49 Acquired absence of other specified parts of digestive tract; Z95.5 Presence of coronary angioplasty implant and graft; Z95.0 Presence of cardiac pacemaker; Z96.642 Presence of left artificial hip joint; Z85.41 Personal history of malignant neoplasm of cervix uteri; Z95.828 Presence of other vascular implants and grafts; Z90.710 Acquired absence of both cervix and uterus; Z87.891 Personal history of nicotine dependence; Z88.5 Allergy status to narcotic agent; Z88.8 Allergy status to other drugs, medicaments and biological substances; Z82.5 Family history of asthma and other chronic lower respiratory diseases; Z82.49 Family history of ischemic heart disease and other diseases of the circulatory system; Z80.6 Family history of leukemia; Z80.52 Family history of malignant neoplasm of bladder; Z80.0 Family history of malignant neoplasm of digestive organs; Z80.9 Family history of malignant neoplasm, unspecified
CPT/HCPCS: 36415; 71045; 71046; 74018; 74019; 74174; 74176; 80048; 80053; 81001; 82150; 82272; 82550; 82553; 83605; 83690; 83735; 84100; 84132; 84484; 85025; 85610; 85730; 87040; 87045; 87046; 87086; 87324; 93005; 93306; 96361; 96365; 96366; 96375; 99285

== ENCOUNTER → 2018-04-27 | Outpatient (CLI) | payer MEDICAID, MEDICARE ==
[2018-04-27 12:57] VITALS: BP 100/58; PULSE 80; RESP 16
--- NOTE | 2018-04-27 14:49 | P.PAINPG ---
Subjective Progress Note Date: 04/27/18 Principal diagnosis: Lumbar spinal stenosis This is a pleasant 82-year-old woman who presents today for follow-up. She was last seen in our clinic in late November. At that point time, [place] was prescribed. The patient reports that this medicine does help her however she has run out. She also was given a prescription for physical therapy. Approximately 4 months after her appointment, she did start going to physical therapy. She is undergone 6 treatments. She is unclear as to whether this is helping her. She denies any new symptoms. Objective - Vital Signs Vital signs: Vital Signs Temp Pulse 80 04/27/18 12:47 Resp 16 04/27/18 12:47 BP 100/58 04/27/18 12:47 Pulse Ox 97 04/27/18 12:47 Intake & Output 04/26/18 04/27/18 04/27/18 18:59 06:59 18:59 Weight 65.771 kg - Exam General: The patient is alert and oriented. Patient is not sedated Patient answers all question appropriately. Cardiac: Heart is regular in rate and rhythm Respiratory: Clear to auscultation. No audible wheezes. Abdomen: Soft nontender nondistended. Lower extremities: Strength is normal bilaterally. Sensation is normal bilaterally. Reflexes are preserved and symmetric bilaterally. Straight leg raise is negative bilaterally. Assessment and Plan (1) Lumbar spinal stenosis Current Visit: Yes Status: Acute Code(s): M48.061 - SPINAL STENOSIS, LUMBAR REGION WITHOUT NEUROGENIC CARMEN SNOMED Code(s): 19885458 Plan: Plan of Care 1. Medications: I will refill the patient's [place] today. I have reviewed the patient's MAPS report and it reveals expected results. Patient has signed an opiate agreement as well as opiate consent for treatment in our clinic. They understand the risks and benefits of opiate medications. They are aware of the potential for addiction. 2. Interventions: I did offer the patient potentially to undergo a lumbar epidural steroid injection. She will need to stop her blood thinner if she were to do this. She has declined at this time. 3. Referrals: She will continue to complete her physical therapy. 4. Testing: None 5. Follow-up: 1 month after completion of physical therapy. PQRS Measure Charge Sheet Measure #130: Documentation of Current Meds in Medical Chart: Patient's medications documented in chart Measure #226: Tobacco Use: Screen & Cessation Intervention: Pt not a tobacco user Measure #111: Pneumonia Vaccination: Pneumococcal vaccine NOT administered or previously given Measure #47: Advance Care Plan: Advance care planning discussed & documented, pt chose/unable to give Measure #412: Opioid Treatment Agreement: Documented signed opioid trtmnt agreemnt min once during opioid trtmnt Measure #408: Opioid Therapy Follow-up Evaluation: Patient had f/u eval minimum every 3 months during opioid therapy Measure #317: Preventitive Care & Scrn High Bld Press & F/U: Pre-hypertensive or hypertensive BP documented, pt will f/u with PCP Measure #128: Body Mass Index (BMI) Screening & Follow-up: BMI documented ABOVE normal parameters - f/u documented Measure #131: Pain Assessment & Follow-up: Pain positive & plan documented Measure #431: Unhealthy Alcohol Use Preventative Care & Scrn: Patient not identified as an unhealthy alcohol user PQRS Narrative: Smoking Status Current every day smoker Do You Want the Pneumonia Vaccine Up to Date Vaccine AT THIS TIME? Blood Pressure 100/58 Pain Intensity [Lower Back] 8 Scale Used Numeric (1 - 10) Hx Alcohol Use (MH) Yes: rare Home Medications: Ambulatory Orders Levothyroxine Sodium [Synthroid] 50 mcg PO DAILY 11/07/14 Rosuvastatin [Crestor] 20 mg PO HS 10/09/16 Famotidine [Pepcid] 20 mg PO DAILY #0 03/11/17 Furosemide [Lasix] 40 mg PO DAILY tab 01/17/18 Metoprolol Succinate (ER) [Toprol XL] 50 mg PO TID tab.er.24h 01/17/18 Potassium Chloride ER [K-Dur 20] 20 meq PO DAILY tab.er.prt 01/17/18 Rivaroxaban [Xarelto] 15 mg PO W/SUPPER tab 01/17/18 Clopidogrel [Plavix] 1 tab PO DAILY 04/27/18 Controlled Substance Measures - Controlled Substance Measures Is patient prescribed a controlled substance at discharge?: Yes When asked, does pt state using other controlled substances?: No If prescribed controlled substance>3 days was MAPS reviewed?: Yes
== END | disposition home or self-care (01) ==
LOC: PNWHC3 12:33
PROVIDERS: ATTEND Pain Medicine Pain Medicine
DX: M48.061 Spinal stenosis, lumbar region without neurogenic claudication (principal); F17.200 Nicotine dependence, unspecified, uncomplicated; Z79.899 Other long term (current) drug therapy; Z79.01 Long term (current) use of anticoagulants; Z79.02 Long term (current) use of antithrombotics/antiplatelets
CPT/HCPCS: 99211

== ENCOUNTER → 2018-05-17 | Outpatient (CLI) | payer MEDICARE ==
[2018-05-17 14:43] VITALS: BP 104/60; PULSE 80; RESP 18
--- NOTE | 2018-05-18 14:32 | P.PN ---
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 and currently she had some hip pain bilaterally, the pain increases with movement, she denies any motor or sensory deficit she denies any fever or night sweats and there is no change in the bowel movement or urination, she denies any side effect of the medication, she denies any excessive drowsiness or sleepiness , and she recalled the current medication helping her to control her pain Objective - Vital Signs Vital signs: Vital Signs Temp Pulse 80 05/17/18 14:35 Resp 18 05/17/18 14:35 BP 104/60 05/17/18 14:35 Pulse Ox 97 05/17/18 14:35 Intake & Output 05/17/18 05/18/18 05/18/18 18:59 06:59 18:59 Weight 63.503 kg - Exam Physical Examinations : 1-Constitutiona : Cooperative , not in acute distress . 2-HEENT : nech ; supple , no Lymphadenopathy , normal thyroid size . eyes : no ptosis , no icterus, no photophobia . ENT : normal of hearing , normal oropharynx , no Thrush . 3- Respiratory : Chest clear to auscultations Bilaterally , no wheezing , no Rhonchi . 4- Cardiovascular : regular rate and rhythem , S1 , S2 , no S3 , no S4. 5- Gastrointestinal : abdomen soft no tenderness , bowel sounds , no organomegally . 6- Genitourinary : Defferred . 7- neurologic : Cranial nerve II to XII intact , no focal neurological deffecit . 8-psychatric : alert , oriented X 3 , appropriate affect , intact judgment and insight . 9-Lymphatic : no Lymphadenopathy . 10- musculoskeltal : . Lumber spine moter stegnth lower extremities , thigh and legs 5/5 Right side , 5/5 Left side deep tendon reflexes : normal Knee Jerk , normal ankle Jerk positive lumber facet Loading Test Range of motion of the lumbar spine Flexion 30 degrees, extension 10 degrees strait leg raising test negative bilaterally Fabere test negative bilaterally Sever tenderness over the Sacroiliac joint on the R and L sides Flexion extension and abduction and adduction and rotation of both hips associated with pain Assessment and Plan Plan: Assessment and plan= chronic low back pain secondary to lumbar spondylosis with lumbar facet arthropathy . 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 Peripheral vascular disease, patient currently on Plavix and Xarelto chronic and current use of high-risk medication (opioids) Patient denies any side effects of the current pain medication and the current treatment/medication helping the patient to do activity of daily living , Diagnoses, prognosis, treatment options, including but not limited to physical therapy, medication management, interventional therapies, and surgery, were discussed with the patient All the questions answered The narcotic consent was signed and patient agreed and understood the side effects and complications of opioid treatment. Patient signed the narcotic agreement, and was orally counseled, not to overuse, not to abuse, not to Divert , not tp sell pain medication, and to take it as prescribed only, Patient was counseled not to drive or operate heavy equipment while using narcotic medication, and advised not to use alcohol or any Illicit drugs while using the narcotis. understanding that lack of compliance with any of the above instructions, will likely to cause discharge from, the pain service, not to renew his narcotic prescriptions MAPS Reviwed and it was apropriate . Medication managements= patient will be given prescription refills for [place] 5/325 dispense 45 with one refill , urine drug screen ordered. Patient preferred not to have ,any interventional pain management Patient will follow up with the pain clinic in 2 months - PQRS measures = - Patient's medications are documented in the chart. -Tobacco use is positive, and counseling.Given. -Patient's has not received pneumococcal vaccine. -Advanced care planning discussed, patient not eligible. -Opiate contract signed. -Pain positive and follow-up visit. -Patient's blood pressure measured [104/60 ] , and documented in the record ,and patient will follow up with the primary care. -Patient's weight was measured and body mass index [26,5 ] above the, . and patient instructed to follow-up with the primary care physician. -Patient was not identified as an unhealthy alcohol user , Time with Patient: Less than 30
== END ==
LOC: PNWHC3 13:47
PROVIDERS: ATTEND Specialist
DX: G89.29 Other chronic pain (principal); M47.816 Spondylosis without myelopathy or radiculopathy, lumbar region; M46.96 Unspecified inflammatory spondylopathy, lumbar region; M25.551 Pain in right hip; M25.552 Pain in left hip; I73.9 Peripheral vascular disease, unspecified; Z96.642 Presence of left artificial hip joint; Z79.899 Other long term (current) drug therapy; Z79.891 Long term (current) use of opiate analgesic
CPT/HCPCS: 80307; G0482; G0463; 99211

== ENCOUNTER → 2018-07-01 | Outpatient (CLI) | payer MEDICARE, MEDICAID ==
[2018-07-01 20:10] LABS: Anion Gap 10.6 mmol/L (4.00-12.00); Calcium 9.8 mg/dL (8.7-10.3); Carbon Dioxide 30.4 mmol/L (21.6-31.8); Potassium 3.6 mmol/L (3.5-5.5)
== END | disposition home or self-care (01) ==
LOC: LABWHC1 12:53
PROVIDERS: ATTEND Nurse Practitioner Adult Health
DX: E87.6 Hypokalemia (principal)
CPT/HCPCS: 36415; 80048

== ENCOUNTER → 2018-11-17 | Outpatient (CLI) | payer MEDICAID, MEDICARE ==
[2018-11-17 14:38] VITALS: BP 125/86; RESP 16
--- NOTE | 2018-11-17 15:34 | P.PAINPG ---
Subjective Progress Note Date: 11/17/18 This is a follow-up visit for this 82 years old female, with a chronic history of severe low back pain with radiation to the lower extremity, she is diagnosed with lumbar spondylosis, patient had peripheral vascular disease, coronary artery disease and she is currently on blood thinner Plavix and Xarelto , she is maintained on [place] 5/325-12 hours when necessary, she also complaining of bilateral hip pain and she had left hip replacement more than 20 years ago and currently she had some hip pain bilaterally, the pain increases with movement, she denies any motor or sensory deficit she denies any fever or night sweats and there is no change in the bowel movement or urination, she denies any side ef fect of the medication, she denies any excessive drowsiness or sleepiness ,and she recalled the current medication helping her to control her pain Physical Examinations : 1-Constitutiona : Cooperative , not in acute distress . 2-HEENT : nech ; supple , no Lymphadenopathy , normal thyroid size . eyes : no ptosis , no icterus, no photophobia . ENT : normal of hearing , normal oropharynx , no Thrush . 3- Respiratory : Chest clear to auscultations Bilaterally , no wheezing , no Rhonchi . 4- Cardiovascular : regular rate and rhythem , S1 , S2 , no S3 , no S4. 5- Gastrointestinal : abdomen soft no tenderness , bowel sounds , no organomegally . 6- Genitourinary : Defferred . 7- neurologic : Cranial nerve II to XII intact , no focal neurological deffecit . 8-psychatric : alert , oriented X 3 , appropriate affect , intact judgment and insight . 9-Lymphatic : no Lymphadenopathy . 10- musculoskeltal : . Lumber spine moter stegnth lower extremities ,thigh and legs 5/5 Right side , 5/5 Left side deep tendon reflexes : normal Knee Jerk , normal ankle Jerk positive lumber facet Loading Test Range of motion of the lumbar spine Flexion 30 degrees, extension 10 degrees strait leg raising test negative bilaterally Fabere test negative bilaterally Sever tenderness over the Sacroiliac joint on the R and L sides Flexion extension and abduction and adduction and rotation of both hips associated with pain Assessment and plan= chronic low back pain secondary to lumbar spondylosis with lumbar facet arthropathy . 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 Peripheral vascular disease, patient currently on Plavix and Xarelto chronic and current use of high-risk medication (opioids) Patient denies any side effects of the current pain medication and the current treatment/medication helping the patient to do activity of daily living , Diagnoses, prognosis, treatment options, including but not limited to physical therapy, medication management, interventional therapies, and surgery, were discussed with the patient All the questions answered The narcotic consent was signed and patient agreed and understood the side effects and complications of opioid treatment. Patient signed the narcotic agreement, and was orally counseled, not to overuse, not to abuse, not to Divert , not tp sell pain medication, and to take it as prescribed only, Patient was counseled not to drive or operate heavy equipment while using narcotic medication, and advised not to use alcohol or any Illicit drugs while using the narcotis. understanding that lack of compliance with any of the above instructions, will likely to cause discharge from, the pain service, not to renew his narcotic prescriptions MAPS Reviwed and it was apropriate . Medication managements= patient will be given prescription refills for [place] 5/325 dispense 45 with one refill , urine drug screen ordered. Patient preferred not to have ,any interventional pain management Patient will follow up with the pain clinic in 2 months Objective - Vital Signs Vital signs: Vital Signs Temp Pulse Resp 16 11/17/18 14:37 BP 125/86 11/17/18 14:37 Pulse Ox Intake & Output 11/16/18 11/17/18 11/17/18 18:59 06:59 18:59 Weight 63.503 kg PQRS Measure Charge Sheet Measure #130: Documentation of Current Meds in Medical Chart: Patient's medications documented in chart Measure #226: Tobacco Use: Screen & Cessation Intervention: Pt screened for tobacco use AND intervention given Measure #111: Pneumonia Vaccination: Pneumococcal vaccine NOT administered or previously given Measure #47: Advance Care Plan: Advance care planning discussed & documented, pt chose/unable to give Measure #412: Opioid Treatment Agreement: Documented signed opioid trtmnt agreemnt min once during opioid trtmnt Measure #408: Opioid Therapy Follow-up Evaluation: Patient had f/u eval minimum every 3 months during opioid therapy Measure #317: Preventitive Care & Scrn High Bld Press & F/U: Normal blood pressure, f/u not required Measure #128: Body Mass Index (BMI) Screening & Follow-up: BMI documented ABOVE normal parameters - f/u documented Measure #131: Pain Assessment & Follow-up: Pain positive & plan documented, Follow-up scheduled Measure #431: Unhealthy Alcohol Use Preventative Care & Scrn: Patient not identified as an unhealthy alcohol user PQRS Narrative: Smoking Status Current every day smoker Blood Pressure 125/86 Pain Intensity [Generalized] 5 Scale Used Numeric (1 - 10) Hx Alcohol Use (MH) Yes: rare Home Medications: Ambulatory Orders Levothyroxine Sodium [Synthroid] 50 mcg PO DAILY 11/07/14 Rosuvastatin [Crestor] 20 mg PO HS 10/09/16 Famotidine [Pepcid] 20 mg PO DAILY #0 03/11/17 Furosemide [Lasix] 40 mg PO DAILY tab 01/17/18 Potassium Chloride ER [K-Dur 20] 20 meq PO DAILY tab.er.prt 01/17/18 Rivaroxaban [Xarelto] 15 mg PO W/SUPPER tab 01/17/18 Clopidogrel [Plavix] 1 tab PO DAILY 04/27/18 HYDROcodone/APAP 5-325MG [[place] 5-325] 1 tab PO BID PRN #45 tab 05/17/18 Metoprolol Succinate (ER) [Toprol XL] 50 mg PO BID 05/17/18 Controlled Substance Measures - Controlled Substance Measures Is patient prescribed a controlled substance at discharge?: Yes When asked, does pt state using other controlled substances?: No If prescribed controlled substance>3 days was MAPS reviewed?: Yes If Rx opioid, was Start Talking consent form obtained?: Yes If opioid is for acute pain is fill amount 7 days or less?: No Was information provided regarding opioid addiction?: Yes
== END | disposition home or self-care (01) ==
LOC: PNWHC3 14:10
PROVIDERS: ATTEND Specialist
DX: G89.29 Other chronic pain (principal); M47.816 Spondylosis without myelopathy or radiculopathy, lumbar region; M46.96 Unspecified inflammatory spondylopathy, lumbar region; M25.551 Pain in right hip; M25.552 Pain in left hip; F17.200 Nicotine dependence, unspecified, uncomplicated; Z96.642 Presence of left artificial hip joint; Z79.01 Long term (current) use of anticoagulants; Z79.891 Long term (current) use of opiate analgesic; Z79.899 Other long term (current) drug therapy
CPT/HCPCS: 99211

== ENCOUNTER → 2019-01-12 | Outpatient (CLI) | payer MEDICARE ==
[2019-01-12 14:33] VITALS: BP 115/74; PULSE 67; RESP 16
--- NOTE | 2019-01-15 18:08 | P.PN ---
Subjective Progress Note Date: 01/12/19 This is a follow-up visit for this 82 years old female, with a chronic history of severe low back pain with radiation to the lower extremity, she is diagnosed with lumbar spondylosis, patient had peripheral vascular disease, coronary artery disease and she is currently on blood thinner Plavix and Xarelto , she is maintained on [place] 5/325-12 hours when necessary, she also complaining of bilateral hip pain and she had left hip replacement more than 20 years ago and currently she had some hip pain bilaterally, the pain increases with movement, she denies any motor or sensory deficit she denies any fever or night sweats and there is no change in the bowel movement or urination, she denies any side ef fect of the medication, she denies any excessive drowsiness or sleepiness ,and she reported that the current dose of the medication is not helping her enough, she is having quite a lot of pain when she is trying to ambulate. Physical Examinations : -Constitutiona : Cooperative , not in acute distress . -HEENT : nech ; supple , no Lymphadenopathy , normal thyroid size . eyes : no ptosis , no icterus, no photophobia . - neurologic : Cranial nerve II to XII intact , no focal neurological deffecit . -psychatric : alert , oriented X 3 , appropriate affect , intact judgment and insight . -Lymphatic : no Lymphadenopathy . - musculoskeltal : . Lumber spine moter stegnth lower extremities ,thigh and legs 5/5 Right side , 5/5 Left side deep tendon reflexes : normal Knee Jerk , normal ankle Jerk positive lumber facet Loading Test Range of motion of the lumbar spine Flexion 30 degrees, extension 10 degrees strait leg raising test negative bilaterally Fabere test negative bilaterally Sever tenderness over the Sacroiliac joint on the R and L sides Flexion extension and abduction and adduction and rotation of both hips associated with pain Assessment and plan= chronic low back pain secondary to lumbar spondylosis with lumbar facet arthropathy . 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 Peripheral vascular disease, patient currently on Plavix and Xarelto chronic and current use of high-risk medication (opioids) Patient denies any side effects of the current pain medication and the current treatment/medication is not helping enough to control the pain Diagnoses, prognosis, treatment options, including but not limited to physical therapy, medication management, interventional therapies, and surgery, were discussed with the patient All the questions answered The narcotic consent was signed and patient agreed and understood the side effects and complications of opioid treatment. Patient signed the narcotic agreement, and was orally counseled, not to overuse, not to abuse, not to Divert , not tp sell pain medication, and to take it as prescribed only, Patient was counseled not to drive or operate heavy equipment while using narcotic medication, and advised not to use alcohol or any Illicit drugs while using the narcotis. understanding that lack of compliance with any of the above instructions, will likely to cause discharge from, the pain service, not to renew his narcotic prescriptions MAPS Reviwed and it was apropriate . Medication managements= patient could benefit from [place] 7.5/325 dispense 45 with one refill Patient preferred not to have ,any interventional pain management Patient will follow up with the pain clinic in 2 months PQRS Measure Charge Sheet Measure #130: Documentation of Current Meds in Medical Chart: Patient's medications documented in chart Measure #226: Tobacco Use: Screen & Cessation Intervention: Pt screened for tobacco use AND intervention given Measure #111: Pneumonia Vaccination: Pneumococcal vaccine NOT administered or previously given Measure #47: Advance Care Plan: Advance care planning discussed & documented, pt chose/unable to give Measure #412: Opioid Treatment Agreement: Documented signed opioid trtmnt agreemnt min once during opioid trtmnt Measure #408: Opioid Therapy Follow-up Evaluation: Patient had f/u eval minimum every 3 months during opioid therapy Measure #317: Preventitive Care & Scrn High Bld Press & F/U: Normal blood pressure, f/u not required Measure #128: Body Mass Index (BMI) Screening & Follow-up: BMI documented ABOVE normal parameters - f/u documented Measure #131: Pain Assessment & Follow-up: Pain positive & plan documented, Follow-up scheduled Measure #431: Unhealthy Alcohol Use Preventative Care & Scrn: Patient not identified as an unhealthy alcohol user PQRS Narrative: - Controlled Substance Measures Is patient prescribed a controlled substance at discharge?: Yes When asked, does pt state using other controlled substances?: No If prescribed controlled substance>3 days was MAPS reviewed?: Yes If Rx opioid, was Start Talking consent form obtained?: Yes If opioid is for acute pain is fill amount 7 days or less?: No Was information provided regarding opioid addiction?: Yes Objective - Vital Signs Vital signs: Vital Signs Temp Pulse 67 01/12/19 14:19 Resp 16 01/12/19 14:19 BP 115/74 01/12/19 14:19 Pulse Ox 100 01/12/19 14:19
== END | disposition home or self-care (01) ==
LOC: PNWHC3 13:38
PROVIDERS: ATTEND Specialist
DX: G89.29 Other chronic pain (principal); M47.816 Spondylosis without myelopathy or radiculopathy, lumbar region; M46.96 Unspecified inflammatory spondylopathy, lumbar region; M25.551 Pain in right hip; M25.552 Pain in left hip; I73.9 Peripheral vascular disease, unspecified; I25.10 Atherosclerotic heart disease of native coronary artery without angina pectoris; Z96.642 Presence of left artificial hip joint; Z79.02 Long term (current) use of antithrombotics/antiplatelets; Z79.01 Long term (current) use of anticoagulants; Z79.891 Long term (current) use of opiate analgesic
CPT/HCPCS: 99211

== ENCOUNTER → 2019-03-03 | Outpatient (CLI) | payer MEDICARE | END | disposition home or self-care (01) | LOC: RADUSWWP 10:55 | PROVIDERS: ATTEND Internal Medicine | DX: Z53.9 Procedure and treatment not carried out, unspecified reason (principal) ==

== ENCOUNTER → 2019-03-16 | Outpatient (CLI) | payer MEDICARE ==
--- NOTE | 2019-03-16 11:39 | P.PAINPG ---
Subjective Progress Note Date: 03/16/19 This is a follow-up visit for this 83 years old female, with a chronic history of severe low back pain with radiation to the lower extremity, she is diagnosed with lumbar spondylosis, patient had peripheral vascular disease, coronary artery disease and she is currently on blood thinner Plavix and Xarelto , she is maintained on [place] 7.5/325-every 12 hours when necessary, she also complaining of bilateral hip pain and she had left hip replacement more than 20 years ago and currently she had some hip pain bilaterally, the pain increases with movement, she denies any motor or sensory deficit she denies any fever or night sweats and there is no change in the bowel movement or urination, she denies any side effect of the medication, she denies any excessive drowsiness or sleepiness , currently she is complaining of some swelling in the right lower extremity and she has some numbness in her right toe, she reported that her primary care ordered an ultrasound of the right lower extremity and this will be done next Wednesday Physical Examinations : -Constitutiona : Cooperative , not in acute distress . -HEENT : nech ; supple , no Lymphadenopathy , normal thyroid size . eyes : no ptosis , no icterus, no photophobia . - neurologic : Cranial nerve II to XII intact , no focal neurological deffecit . -psychatric : alert , oriented X 3 , appropriate affec t , intact judgment and insight . -Lymphatic : no Lymphadenopathy . - musculoskeltal : . Lumber spine moter stegnth lower extremities ,thigh and legs 4/5 Right side , 4/5 Left side deep tendon reflexes : normal Kn ee Jerk , normal ankle Jerk positive lumber facet Loading Test Range of motion of the lumbar spine Flexion 30 degrees, extension 10 degrees strait leg raising test negative bilaterally Fabere test negative bilaterally Sever tenderness over the Sacroiliac joint on the R and L sides Flexion extension and abduction and adduction and rotation of both hips associated with pain Assessment and plan= chronic low back pain secondary to lumbar spondylosis with lumbar facet arthropathy . 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 Peripheral vascular disease, patient currently on Plavix and Xarelto chronic and current use of high-risk medication (opioids) Patient denies any side effects of the current pain medication and the current treatment/medication is not helping enough to control the pain Diagnoses, prognosis, treatment options, including but not limited to physical therapy, medication management, interventional therapies, and surgery, were discussed with the patient All the questions answered The narcotic consent was signed and patient agreed and understood the side effects and complications of opioid treatment. Patient signed the narcotic agreement, and was orally counseled, not to overuse, not to abuse, not to Divert , not tp sell pain medication, and to take it as prescribed only, Patient was counseled not to drive or operate heavy equipment while using narcotic medication, and advised not to use alcohol or any Illicit drugs while using the narcotis. understanding that lack of compliance with any of the above instructions, will likely to cause discharge from, the pain service, not to renew his narcotic prescriptions MAPS Reviwed and it was apropriate . Medication managements= patient could benefit from [place] 7.5/325 dispense 45 with one refill Patient preferred not to have ,any interventional pain management Patient will follow up with the pain clinic in 2 months PQRS Measure Charge Sheet Measure #130: Documentation of Current Meds in Medical Chart: Patient's medications documented in chart Measure #226: Tobacco Use: Screen & Cessation Intervention: Pt screened for tobacco use AND intervention given Measure #111: Pneumonia Vaccination: Pneumococcal vaccine administered or previously received Measure #47: Advance Care Plan: Advance care planning discussed & documented, pt chose/unable to give Measure #412: Opioid Treatment Agreement: Documented signed opioid trtmnt agreem nt min once during opioid trtmnt Measure #408: Opioid Therapy Follow-up Evaluation: Patient had f/u eval minimum every 3 months during opioid therapy Measure #317: Preventitive Care & Scrn High Bld Press & F/U: Normal blood pressure, f/u not required Measure #128: Body Mass Index (BMI) Screening & Follow-up: BMI documented ABOVE normal parameters - f/u documented Measure #131: Pain Assessment & Follow-up: Pain positive & plan documented, Follow-up scheduled Measure #431: Unhealthy Alcohol Use Preventative Care & Scrn: Patient not identified as an unhealthy alcohol user PQRS Narrative: Smoking Status Current every day smoker Pain Intensity [Lower Back] 5 Scale Used Numeric (1 - 10) Hx Alcohol Use (MH) Yes: rare Home Medications: Ambulatory Orders Levothyroxine Sodium [Synthroid] 50 mcg PO QAM 11/07/14 Rosuvastatin [Crestor] 20 mg PO HS 10/09/16 Rivaroxaban [Xarelto] 15 mg PO W/SUPPER tab 01/17/18 Clopidogrel [Plavix] 75 tab PO QAM 04/27/18 Metoprolol Succinate (ER) [Toprol XL] 50 mg PO BID 05/17/18 HYDROcodone/APAP 7.5-325MG [[place] 7.5-325] 1 tab PO BID PRN 01/12/19 Famotidine [Pepcid] 20 mg PO QAM 03/06/19 Furosemide [Lasix] 40 mg PO QAM 03/06/19 Potassium Chloride ER [K-Dur 20] 20 meq PO QAM 03/06/19 Controlled Substance Measures - Controlled Substance Measures Is patient prescribed a controlled substance at discharge?: Yes When asked, does pt state using other controlled substances?: No If prescribed controlled substance>3 days was MAPS reviewed?: Yes If Rx opioid, was Start Talking consent form obtained?: Yes If opioid is for acute pain is fill amount 7 days or less?: No Was information provided regarding opioid addiction?: Yes
[2019-03-16 12:22] VITALS: BP 121/79; PULSE 76; RESP 16
== END | disposition home or self-care (01) ==
LOC: PNWHC3 10:51
PROVIDERS: ATTEND Specialist
DX: G89.29 Other chronic pain (principal); M47.816 Spondylosis without myelopathy or radiculopathy, lumbar region; M46.96 Unspecified inflammatory spondylopathy, lumbar region; M25.551 Pain in right hip; M25.552 Pain in left hip; I73.9 Peripheral vascular disease, unspecified; F17.200 Nicotine dependence, unspecified, uncomplicated; Z79.890 Hormone replacement therapy; Z79.899 Other long term (current) drug therapy; Z79.02 Long term (current) use of antithrombotics/antiplatelets; Z96.642 Presence of left artificial hip joint
CPT/HCPCS: 99211

== ENCOUNTER → 2019-03-20 | Outpatient (CLI) | payer MEDICARE ==
--- NOTE | 2019-03-20 15:36 | US ---
EXAMINATION TYPE: US venous doppler duplex LE RT DATE OF EXAM: 03/20/2019 12:42 PM COMPARISON: NONE CLINICAL HISTORY: 83-year-old female with right Lower, M79.89 Swelling. RIGHT leg swelling, no h/o DV T, on thinners for a-fib, stenting SIDE PERFORMED: Right TECHNIQUE: The lower extremity deep venous system is examined utilizing real time linear array sonog jaqui with graded compression, doppler sonography and color-flow sonography. FINDINGS: VESSELS IMAGED: External Iliac Vein (EIV) Common Femoral Vein Deep Femoral Vein Greater Saphenous Vein * Femoral Vein Popliteal Vein Small Saphenous Vein * Proximal Calf Veins (* superficial vessels) Right Leg: Appears negative for DVT IMPRESSION: No evidence for DVT within the right lower extremity imaged from the groin to the upper calf.
== END ==
LOC: RADUSWWP 12:18
PROVIDERS: ATTEND Internal Medicine
DX: M79.89 Other specified soft tissue disorders (principal)

== ENCOUNTER → 2019-05-05 | Outpatient (CLI) | payer MEDICARE ==
--- NOTE | 2019-05-30 09:51 | P.ARTDOP ---
Arterial Doppler LOWER EXTREMITY ARTERIAL DOPPLER: DATE OF SERVICE: 05/05/2019 Reason for study: Post bilateral lower extremity stents. Doppler waveforms: Multiphasic bilaterally throughout. Pulse volume recording: []. Pressure gradients: Mild bilateral gradients. Ankle-brachial indices: 0.93 on the right and 0.82 on the left. Toe pressures: [] on the right, [] on the left Impression: Mild bilateral fem-pop disease.
== END | disposition home or self-care (01) ==
LOC: RADUSWWP 12:26
PROVIDERS: ATTEND Internal Medicine
DX: I73.9 Peripheral vascular disease, unspecified (principal)
CPT/HCPCS: 93922

== ENCOUNTER → 2020-01-03 | Outpatient (CLI) | payer MEDICARE ==
[2020-01-04 00:05] LABS: Chol/HDL Ratio 2.63; LDL Cholesterol,Calculated 51.8 mg/dL (0.0-131.0); VLDL Calculation 18.2 mg/dL (5.00-40.00)
== END | disposition home or self-care (01) ==
LOC: LABWHC1 13:57
PROVIDERS: ATTEND Internal Medicine Clinical Cardiac Electrophysiology
DX: E78.5 Hyperlipidemia, unspecified (principal); I73.9 Peripheral vascular disease, unspecified
CPT/HCPCS: 36415; 80061

== ENCOUNTER → 2020-05-27 | Outpatient (CLI) | payer MEDICAID, MEDICARE ==
--- NOTE | 2020-05-27 11:42 | P.PN ---
Progress Note - Text Progress Note Date: 05/27/20 84-year-old female presents for follow-up visit. She has a chief complaint of bilateral lower extremity pain and low back pain. She has a medical history significant for peripheral arterial disease as well as vascular disease. She was evaluated by multiple physicians for her venous insufficiency as well as PAD. She was maintained on when necessary opiate therapy requiring low-dose Montrose 2-3 times a month for painful symptoms. She returns for medication refill. She's had no changes to her medical history since her last visit in March 2019. She presents today in good health, she does complain of slightly increased swelling in her right lower extremity which is also slightly more erythematous than normal. She has not followed up with a [employer] consultant but she plans to do so soon. She denies any shortness of breath or double be breathing, she denies any orthopnea or PND. Overall patient is stable. Past medical history, past surgical history, and social history reviewed and unchanged from previous visit. In addition to above, 13-point review of systems is also negative for chest pain, shortness of breath, changes in vision, changes in hearing, new onset weakness, abdominal pain, diarrhea, extreme fatigue, malaise, fever, skin margaret nges, homicidal or suicidal ideation, or bowel or bladder incontinence. Vital Signs: Reviewed in EMR Gen: WDWN, AAOx3, NAD HEENT: NCAT, EOMI, hearing grossly normal Pulm: resp unlabored Abd: soft, NT, ND Neck: supple, trachea midline Lower extremity: Bilateral edema worse on the right. Pitting edema 2+ erythema on the anterior aspect of her rueda medial and lateral. Slightly tender to touch no signs of overt infection. Gait: Patient is wheelchair bound. Imaging: Reviewed in EMR Assessment: 1. Peripheral arterial disease 2. Venous insufficiency 3. Lumbar spinal stenosis Plan: 1. Explanation: Opioid and psychological risk scores were reviewed. Diagnoses, prognoses, and multiple treatment options including but not limited to physical therapy, interventional therapies, adjuvant medical therapies, narcotic medication therapies, and surgery were discussed with the patient and all questions were answered to the patient's satisfaction. 2. Opioid agreement: 3. Counseling: The patient was counseled extensively on SMOKING CESSATION, BODY MASS INDEX, EXERCISE. Specifically, the patient was instructed regarding the importance of smoking cessation, obesity, and exercise in the context of both chronic pain and overall health. 4. Procedures: None 5. Consultations: Follow up with [employer] consultant to reevaluate right lower extremity pitting edema 6. Investigations: Urine drug screen was ordered today 05/27/2020. 7. Medications: Montrose 5 mg/325 mg every 8 hours when necessary 45 tablets. One refill was given. 8. Disposition: Follow up as needed. I discussed with patient her need to follow up with her [employer] consultant review her right lower extremity edema. No concern for deep veins thrombosis with no tenderness in her calf and negative Woo sign. This is a chronic issue and needs to be reevaluated by her [employer] consultant.
[2020-05-27 11:46] VITALS: BP 145/65; PULSE 76; RESP 18; TEMP 97.5
== END | disposition home or self-care (01) ==
LOC: PNWHC3 10:40
PROVIDERS: ATTEND Anesthesiology
DX: M48.061 Spinal stenosis, lumbar region without neurogenic claudication (principal); I87.2 Venous insufficiency (chronic) (peripheral); I77.89 Other specified disorders of arteries and arterioles; Z79.891 Long term (current) use of opiate analgesic
CPT/HCPCS: 80307; G0482; G0463; 99211; 99212

== ENCOUNTER 2020-06-02 13:19 | Emergency (ER) | payer MEDICARE, MEDICAID ==
[2020-06-02 13:27] VITALS: RESP 18
--- NOTE | 2020-06-02 13:42 | ED ---
General Adult HPI - General Chief complaint: Extremity Injury, Lower Stated complaint: bilat leg swelling Time Seen by Provider: 06/02/20 13:31 Source: patient Mode of arrival: ambulatory Limitations: no limitations - History of Present Illness Initial comments: Dictation was produced using [employer] dictation software. please excuse any grammatical, word or spelling errors. This patient was cared for during a federal and state declared state of e mergency secondary to Covid 19 Chief Complaint: 84-year-old female presents with right lower extremity pain and redness for 1 month. History of Present Illness: 84-year-old female she has past medical history of peripheral vascular disease with bilateral lower extremity stents for poor blood flow. Patient states this seizure was performed by a diet therapist. Patient states over the last months she's been having right lower extremity pain and redness especially with ambulation. She states at rest she does not have any symptoms. She saw a nurse practitioner at a cardiology office. She was given prescription for Bactrim. She states her symptoms are not improved. She is instructed to come to the emergency room if her symptoms do not get better. Notes worsening bilateral lower extremity swelling especially worse in the right compared to the left. She denies any respiratory complaints. No constitutional symptoms. The ROS documented in this emergency department record has been reviewed and confirmed by me. Those systems with pertinent positive or negative responses h ave been documented in the HPI. All other systems are other negative and/or noncontributory. PHYSICAL EXAM: General Impression: Alert and oriented x3, not in acute distress HEENT: Normocephalic atraumatic, extra-ocular movements intact, pupils equal and reactive to light bilaterally, mucous membranes moist. Cardiovascular: Heart regular rate and rhythm Chest: Able to complete full sentences, no retractions, no tachypnea Abdomen: abdomen soft, non-tender, non-distended, no organomegaly Musculoskeletal: Pulses present and equal in all extremities Motor: no focal deficits noted Neurological: CN II-XII grossly intact, no focal motor or sensory deficits noted Extremities bilaterally: There are weak but equal DP pulses in the right and left leg, 3+ pitting edema to the bilateral lower extremities that are tender to palpation, lower extremities are not warm. There is bilateral erythema wor sening leg compared to the left. Psych: Normal affect and mood ED course: 84-year-old female presents with right lower show any symptoms or signs upon arrival are within acceptable limits. Laboratory evaluation obtained. CBC unremarkable. Metabolic panel shows BUN of 30 with a creatinine 2.23. Rest of labs unremarkable. Patient observed in the emergency department for approximately 2 and half hours. She is reevaluated at 3:47 PM found in stable medical condition. Patient told about her elevated renal markers. She denies any nausea vomiting. She is told to increase her fluid intake. At this point there is concern that perhaps patient's symptoms may be due to cellulitis. She is told to discontinue her Bactrim. She is prescribed Keflex. She is strongly advised follow-up with her primary care physician for reevaluation of her leg symptoms and for reevaluation of her renal markers. - Related Data Home Medications Medication Instructions Recorded Confirmed Levothyroxine Sodium [Synthroid] 50 mcg PO QAM 11/07/14 05/22/20 Rosuvastatin [Crestor] 20 mg PO HS 10/09/16 05/22/20 Clopidogrel [Plavix] 75 tab PO QAM 04/27/18 05/22/20 Metoprolol Succinate (ER) [Toprol 50 mg PO BID 05/17/18 05/22/20 XL] Famotidine [Pepcid] 20 mg PO QAM 03/06/19 05/22/20 Furosemide [Lasix] 40 mg PO QAM 03/06/19 05/22/20 Potassium Chloride ER [K-Dur 20] 20 meq PO QAM 03/06/19 05/22/20 Previous Rx's Medication Instructions Recorded Rivaroxaban [Xarelto] 15 mg PO W/SUPPER tab 01/17/18 Cephalexin [Keflex] 500 mg PO Q6HR 5 Days #20 cap 06/02/20 Allergies Allergy/AdvReac Type Severity Reaction Status Date / Time hydromorphone [From Dilaudid] AdvReac Nausea & Verified 06/02/20 13:23 Vomiting lorazepam [From Ativan] AdvReac Hallucinati Verified 06/02/20 13:23 ons Review of Systems ROS Statement: Those systems with pertinent positive or pertinent negative responses have been documented in the HPI. ROS Other: All systems not noted in ROS Statement are negative. Past Medical History Past Medical History: Atrial Fibrillation, Atrial Flutter, Coronary Artery Disease (CAD), Cancer, Heart Failure, COPD, Hyperlipidemia, Hypertension, Liver Disease, Thyroid Disorder, Vascular Disorder Additional Past Medical History / Comment(s): hx Kidney Stones, Chronic N/T BILAT LEGS, WITH BLE EDEMA, degenerative arthritis, hx hepatitis C, hx cervical cancer, PVD Last Myocardial Infarction Date:: 2009 History of Any Multi-Drug Resistant Organisms: None Reported Past Surgical History: Appendectomy, Cholecystectomy, Heart Catheterization With Stent, Hysterectomy, Joint Replacement, Pacemaker Additional Past Surgical History / Comment(s): valeria lower ext vacular repairs,2-6-17 abd. aortogram, ERCP, 4 cardiac stents, left hip replacement Past Anesthesia/Blood Transfusion Reactions: Family History of Problems w/ Anesthesia Additional Past Anesthesia/Blood Transfusion Reaction / Comment(s): sister-long time to come out Date of Last Stent Placement:: unknown Type of Cardiac Device: Permanent Pacemaker Device Placement Date:: 2014 Past Psychological History: No Psychological Hx Reported Smoking Status: Former smoker Past Alcohol Use History: None Reported Past Drug Use History: None Reported - Past Family History Son(s) Family Medical History: Cancer Additional Family Medical History / Comment(s): Patient has 3 sons and one has been diagnosed with bladder cancer. Father Family Medical History: COPD (father at age of 89 from COPD/emphysema.) Additional Family Medical History / Comment(s): EMPHYSEMA. Father at age 89 from COPD. Mother Family Medical History: Chest Pain / Angina, Myocardial Infarction (NE) (mother at age of 91 from myocardial infarction) Additional Family Medical History / Comment(s): Mother at age 91 from myocardial infarction. Brother(s) Family Medical History: Cancer Additional Family Medical History / Comment(s): Patient has 2 brothers and one was diagnosed with esophageal cancer with metastatic disease. Daughter(s) Family Medical History: Cancer (patient has 3 daughters one of them was diagnosed with leukemia.) Additional Family Medical History / Comment(s): Patient has 3 daughters and one diagnosed with leukemia. General Exam Limitations: no limitations Course Vital Signs 06/02/20 13:23 Temperature 99 F Pulse Rate 76 Respiratory 18 Rate Blood Pressure 148/73 O2 Sat by Pulse 97 Oximetry Medical Decision Making - Lab Data Result diagrams: 06/02/20 14:10 06/02/20 14:10 Lab Results 06/02/20 06/02/20 06/02/20 Range/Units 14:10 14:10 14:10 WBC 6.7 (3.8-10.6) k/uL RBC 4.46 (3.80-5.40) m/uL Hgb 13.3 (11.4-16.0) gm/dL Hct 39.7 (34.0-46.0) % MCV 88.9 (80.0-100.0) fL MCH 29.9 (25.0-35.0) pg MCHC 33.6 (31.0-37.0) g/dL RDW 13.7 (11.5-15.5) % Plt Count 234 (150-450) k/uL MPV 6.9 Neutrophils % 54 % Lymphocytes % 32 % Monocytes % 8 % Eosinophils % 2 % Basophils % 1 % Neutrophils # 3.7 (1.3-7.7) k/uL Lymphocytes # 2.2 (1.0-4.8) k/uL Monocytes # 0.5 (0-1.0) k/uL Eosinophils # 0.2 (0-0.7) k/uL Basophils # 0.0 (0-0.2) k/uL Sodium 138 (137-145) mmol/L Potassium 3.7 (3.5-5.1) mmol/L Chloride 100 (98-107) mmol/L Carbon Dioxide 31 H (22-30) mmol/L Anion Gap 7 mmol/L BUN 30 H (7-17) mg/dL Creatinine 2.23 H (0.52-1.04) mg/dL Est GFR (CKD-EPI)AfAm 23 (>60 ml/min/1.73 sqM) Est GFR (CKD-EPI)NonAf 20 (>60 ml/min/1.73 sqM) Glucose 100 H (74-99) mg/dL Plasma Lactic Acid Tyler 1.2 (0.7-2.0) mmol/L Calcium 9.3 (8.4-10.2) mg/dL Total Bilirubin 0.5 (0.2-1.3) mg/dL AST 42 H (14-36) U/L ALT 14 (4-34) U/L Alkaline Phosphatase 107 (38-126) U/L C-Reactive Protein <5.0 (<10.0) mg/L NT-Pro-B Natriuret Pep pg/mL Total Protein 7.4 (6.3-8.2) g/dL Albumin 3.7 (3.5-5.0) g/dL 06/02/20 Range/Units 14:10 WBC (3.8-10.6) k/uL RBC (3.80-5.40) m/uL Hgb (11.4-16.0) gm/dL Hct (34.0-46.0) % MCV (80.0-100.0) fL MCH (25.0-35.0) pg MCHC (31.0-37.0) g/dL RDW (11.5-15.5) % Plt Count (150-450) k/uL MPV Neutrophils % % Lymphocytes % % Monocytes % % Eosinophils % % Basophils % % Neutrophils # (1.3-7.7) k/uL Lymphocytes # (1.0-4.8) k/uL Monocytes # (0-1.0) k/uL Eosinophils # (0-0.7) k/uL Basophils # (0-0.2) k/uL Sodium (137-145) mmol/L Potassium (3.5-5.1) mmol/L Chloride (98-107) mmol/L Carbon Dioxide (22-30) mmol/L Anion Gap mmol/L BUN (7-17) mg/dL Creatinine (0.52-1.04) mg/dL Est GFR (CKD-EPI)AfAm (>60 ml/min/1.73 sqM) Est GFR (CKD-EPI)NonAf (>60 ml/min/1.73 sqM) Glucose (74-99) mg/dL Plasma Lactic Acid Tyler (0.7-2.0) mmol/L Calcium (8.4-10.2) mg/dL Total Bilirubin (0.2-1.3) mg/dL AST (14-36) U/L ALT (4-34) U/L Alkaline Phosphatase (38-126) U/L C-Reactive Protein (<10.0) mg/L NT-Pro-B Natriuret Pep 936 pg/mL Total Protein (6.3-8.2) g/dL Albumin (3.5-5.0) g/dL Disposition Clinical Impression: BONIFACIO (acute kidney injury), Cellulitis Disposition: HOME SELF-CARE Condition: Fair Instructions (If sedation given, give patient instructions): Dehydration (ED), Cellulitis (ED) Additional Instructions: 1. Your evaluated today for lower extremity pain and redness. Your prescribed Keflex. Please discontinue her Bactrim 2. You have elevated BUN and creatinine. This serves signs of acute kidney injury. You must follow up with your primary care doctor for outpatient management of kidney injury. 3. Please discontinue your Lasix in the meantime. Try to stay well hydrated. Prescriptions: Cephalexin [Keflex] 500 mg PO Q6HR 5 Days #20 cap Is patient prescribed a controlled substance at d/c from ED?: No Referrals: Bertram Kirkpatrick MD [Primary Care Provider] - 1-2 days Time of Disposition: 15:50
[2020-06-02 14:42] LABS: Basophils % (A) 1 %; Eosinophils # (A) 0.2 k/uL (0-0.7); Eosinophils % (A) 2 %; HCT 39.7 % (34.0-46.0); HGB 13.3 gm/dL (11.4-16.0); Lymphocytes # (A) 2.2 k/uL (1.0-4.8); Lymphocytes % (A) 32 %; MCH 29.9 pg (25.0-35.0); MCHC 33.6 g/dL (31.0-37.0); MCV 88.9 fL (80.0-100.0); Mean Platelet Volume 6.9; Monocytes # (A) 0.5 k/uL (0-1.0); Monocytes % (A) 8 %; Neutrophils # (A) 3.7 k/uL (1.3-7.7); Neutrophils % (A) 54 %; Platelet Count 234 k/uL (150-450); RBC 4.46 m/uL (3.80-5.40); RDW 13.7 % (11.5-15.5); WBC 6.7 k/uL (3.8-10.6)
[2020-06-02 14:59] LABS: ALT 14 U/L (4-34); AST 42 U/L (14-36); African American GFR (CKD) 23 (>60 ml/min/1.73 sqM); Albumin 3.7 g/dL (3.5-5.0); Alkaline Phosphatase 107 U/L (38-126); Anion Gap 7 mmol/L; Blood Urea Nitrogen 30 mg/dL (7-17); C Reactive Protein <5.0 mg/L (<10.0); Calcium 9.3 mg/dL (8.4-10.2); Carbon Dioxide 31 mmol/L (22-30); Chloride 100 mmol/L (98-107); Glucose 100 mg/dL (74-99); Non-African American GFR(CKD) 20 (>60 ml/min/1.73 sqM); Potassium 3.7 mmol/L (3.5-5.1); Sodium 138 mmol/L (137-145); Total Bilirubin 0.5 mg/dL (0.2-1.3); Total Protein 7.4 g/dL (6.3-8.2)
[2020-06-02] MEDS ORDERED: SODIUM CHLORIDE 0.9% 1,000 ML IV STA (15:39)
[2020-06-02 16:03] LABS: Erythrocyte Sedimentation Rate 31 mm/hr (0-20)
[2020-06-02 16:32] VITALS: BP 152/78; PULSE 81; TEMP 98.8
== END 2020-06-02 16:30 | disposition home or self-care (01) ==
LOC: EC 13:19
DX: N17.9 Acute kidney failure, unspecified (principal); L03.90 Cellulitis, unspecified; I11.0 Hypertensive heart disease with heart failure; I50.9 Heart failure, unspecified; E78.5 Hyperlipidemia, unspecified; I48.91 Unspecified atrial fibrillation; E07.9 Disorder of thyroid, unspecified; I25.2 Old myocardial infarction; Z79.890 Hormone replacement therapy; Z79.02 Long term (current) use of antithrombotics/antiplatelets; Z79.899 Other long term (current) drug therapy; Z88.5 Allergy status to narcotic agent; Z88.8 Allergy status to other drugs, medicaments and biological substances; Z96.642 Presence of left artificial hip joint; Z85.41 Personal history of malignant neoplasm of cervix uteri; Z87.891 Personal history of nicotine dependence
CPT/HCPCS: 36415; 80053; 83605; 83880; 85025; 85652; 86140; 87040; 99283

== ENCOUNTER → 2020-06-06 | Outpatient (CLI) | payer MEDICARE, MEDICAID ==
--- NOTE | 2020-06-06 15:13 | US ---
EXAMINATION TYPE: US venous doppler duplex LE RT DATE OF EXAM: 06/06/2020 2:56 PM COMPARISON: US 2019 CLINICAL HISTORY: L03.115 CELLULITIS OF RIGHT LOWER EXTREMITY. Right leg swelling, patient on 2 blood thinners SIDE PERFORMED: Right TECHNIQUE: The lower extremity deep venous system is examined utilizing real time linear array sonog jaqui with graded compression, doppler sonography and color-flow sonography. VESSELS IMAGED: Common Femoral Vein Deep Femoral Vein Greater Saphenous Vein * Femoral Vein Popliteal Vein Small Saphenous Vein * Proximal Calf Veins (* superficial vessels) Right Leg: Appears negative for DVT IMPRESSION: 1. Right lower extremity ultrasound negative for deep venous thrombosis.
== END | disposition home or self-care (01) ==
LOC: RADUSWWP 14:23
PROVIDERS: ATTEND Internal Medicine
DX: L03.115 Cellulitis of right lower limb (principal)

== ENCOUNTER → 2020-06-24 | Outpatient (CLI) | payer MEDICARE, MEDICAID ==
--- NOTE | 2020-06-26 11:32 | P.ARTDOP ---
Arterial Doppler LOWER EXTREMITY ARTERIAL DOPPLER: DATE OF SERVICE: 06/24/2020 Reason for study: Leg pain. Doppler waveforms: Multiphasic bilaterally throughout. Pulse volume recording: []. Pressure gradients: None. Ankle-brachial indices: Greater than 1 bilaterally. Toe brachial indices: [] on the right, [] on the left Impression: Normal study.
== END | disposition home or self-care (01) ==
LOC: RADUSWWP 14:29
PROVIDERS: ATTEND Internal Medicine
DX: I73.9 Peripheral vascular disease, unspecified (principal)
CPT/HCPCS: 93922; 93923

== ENCOUNTER → 2020-08-14 | Outpatient (CLI) | payer MEDICARE, MEDICAID ==
--- NOTE | 2020-08-14 16:07 | XR ---
EXAMINATION TYPE: XR Hip RT and AP Pelvis DATE OF EXAM: 08/14/2020 COMPARISON: CT January 11, 2018 HISTORY: Pelvic and right hip pain TECHNIQUE: A single AP view of the pelvis is obtained. Two views of the right hip are obtained. FINDINGS: The osseous structures redemonstrated demineralized. Metallic hardware from total left hip arthroplasty redemonstrated and stable in position. Pubic symphysis is intact. Sacroiliac joints sym metric and felt within normal limits. There is advanced degenerative change in right hip joint redemonstrated with marked superior joint sp janna loss. There is joint space sclerosis that is more prominent. There is new deformity to the superi or aspect right femoral head, subchondral fracture with bony fragmentation and sclerosis suspected. 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 Overlyi ng vascular calcification in the pelvis extends into bilateral groin region. There are stent grafts i n the common iliac arteries bilaterally redemonstrated. IMPRESSION: There is further interval progression of advanced degenerative changes right hip as deta iled above.
== END ==
LOC: RADXRMAIN 15:23
PROVIDERS: ATTEND Orthopaedic Surgery
DX: M16.11 Unilateral primary osteoarthritis, right hip (principal)
CPT/HCPCS: 73502

== ENCOUNTER → 2020-09-16 | Outpatient (CLI) | payer MEDICARE, MEDICAID ==
[2020-09-16 12:48] VITALS: BP 118/74; PULSE 84; RESP 18; TEMP 97.9
--- NOTE | 2020-09-16 13:02 | P.PN ---
Subjective Progress Note Date: 09/16/20 This is a follow-up visit for this 84 years old female, with a chronic history of severe low back pain with radiation to the lower extremity, she is diagnosed with lumbar spondylosis, patient had peripheral vascular disease, coronary artery disease, and she is currently on blood thinner Plavix and Xarelto , she is maintained on Sparks 5/325-every 12 hours when necessary, she also complaining of bilateral hip pain and she had left hip replacement more than 20 years ago and currently she had hip pain bilaterally, the pain increases with movement, she denies any fever or night sweats and there is no change in the bowel movement or urination, she denies any side effect of the medication, she denies any excessive drowsiness or sleepiness , she reported that the current medication is helping to control her pain her pain gets severe all the time increased with any change in position Physical Examinations : -Constitutiona : Cooperative , not in acute distress . -HEENT : nech ; supple , no Lymphadenopathy , normal thyroid size . eyes : no ptosis , no icterus, no photophobia . - neurologic : Cranial nerve II to XII intact , no focal neurological deffecit . -psychatric : alert , oriented X 3 , appropriate affect , intact judgment and insight . -Lymphatic : no Lymphadenopathy . - musculoskeltal : . Lumber spine moter stegnth lower extremities ,thigh and legs 4/5 Right side , 4/5 Left side deep tendon reflexes : normal Knee Jerk , normal ankle Jerk positive lumber facet Loading Test Range of motion of the lumbar spine Flexion 30 degrees, extension 10 degrees strait leg raising test negative bilaterally Fabere test negative bilaterally Sever tenderness over the Sacroiliac joint on the R and L sides Flexion extension and abduction and adduction and rotation of both hips associated with pain Assessment and plan= chronic low back pain secondary to lumbar spondylosis with lumbar facet arthropathy . Bilateral hip arthralgia Peripheral vascular disease, patient currently on Plavix and Xarelto chronic and current use of high-risk medication (opioids) Patient denies any side effects of the current pain medication and the current treatment/medication is not helping enough to control the pain Diagnoses, prognosis, treatment options, including but not limited to physical therapy, medication management, interventional therapies, and surgery, were discussed with the patient All the questions answered The narcotic consent was signed and patient agreed and understood the side effects and complications of opioid treatment. Patient signed the narcotic agreement, and was orally counseled, not to overuse, not to abuse, not to Divert , not tp sell pain medication, and to take it as prescribed only, Patient was counseled not to drive or operate heavy equipment while using narcotic medication, and advised not to use alcohol or any Illicit drugs while using the narcotis. understanding that lack of compliance with any of the above instructions, will likely to cause discharge from, the pain service, not to renew his narcotic prescriptions [facility] Reviwed and it was apropriate . Medication managements= I will increase Sparks to Sparks 7.5/325 dispense 45 with one refill Patient preferred not to have ,any interventional pain management Patient will follow up with the pain clinic in 2 months Next visit we'll order a urine drug screen PQRS Measure Charge Sheet Measure #130: Documentation of Current Meds in Medical Chart: Patient's medications documented in chart Measure #226: Tobacco Use: Screen & Cessation Intervention: Pt screened for tobacco use AND intervention given Measure #111: Pneumonia Vaccination: Pneumococcal vaccine administered or previously received Measure #47: Advance Care Plan: Advance care planning discussed & documented, pt chose/unable to give Measure #412: Opioid Treatment Agreement: Documented signed opioid trtmnt agreemnt min once during opioid trtmnt Measure #408: Opioid Therapy Follow-up Evaluation: Patient had f/u eval minimum every 3 months during opioid therapy Measure #317: Preventitive Care & Scrn High Bld Press & F/U: Normal blood pressure, f/u not required Measure #128: Body Mass Index (BMI) Screening & Follow-up: BMI documented ABOVE normal parameters - f/u documented Measure #131: Pain Assessment & Follow-up: Pain positive & plan documented, Fol low-up scheduled Measure #431: Unhealthy Alcohol Use Preventative Care & Scrn: Patient not identified as an unhealthy alcohol user PQRS Narrative: Objective - Vital Signs Vital signs: Vital Signs Temp 97.9 F 09/16/20 12:38 Pulse 84 09/16/20 12:38 Resp 18 09/16/20 12:38 BP 118/74 09/16/20 12:38 Pulse Ox 95 09/16/20 12:38
== END ==
LOC: PNWHC3 12:27
PROVIDERS: ATTEND Specialist
DX: M47.816 Spondylosis without myelopathy or radiculopathy, lumbar region (principal); G89.29 Other chronic pain; I73.9 Peripheral vascular disease, unspecified; I25.10 Atherosclerotic heart disease of native coronary artery without angina pectoris; F17.200 Nicotine dependence, unspecified, uncomplicated; Z79.891 Long term (current) use of opiate analgesic; Z79.02 Long term (current) use of antithrombotics/antiplatelets; Z96.643 Presence of artificial hip joint, bilateral
CPT/HCPCS: 99211

== ENCOUNTER 2021-01-13 07:22 | Inpatient (IN) | payer MEDICARE, MEDICAID ==
--- NOTE | 2021-01-13 07:44 | ED ---
General Adult HPI - General Chief complaint: Fall Stated complaint: Fall Time Seen by Provider: 01/13/21 07:27 Source: patient, EMS Mode of arrival: EMS Limitations: no limitations - History of Present Illness Initial comments: Dictation was produced using [employer] dictation software. please excuse any grammatical, word or spelling errors. Chief Complaint: 85-year-old female past medical history of A. fib presents to emergency department after fall. History of Present Illness: 85-year-old female she woke up this morning because sure her dark arcing at something. She got up to see what it was. She noticed that there wasn't anything that the dog was barking and. She turned around and eczema across her legs. She states she fell backwards. She complains of some mild neck pain and bilateral hip pain. Patient denies any other symptoms. She takes Xarelto for atrial fibrillation. Denies any numbness and paresthesias to the arms or legs. Patient states that she is hungry and is requesting breakfast. The ROS documented in this emergency department record has been reviewed and confirmed by me. Those systems with pertinent positive or negative responses have been documented in the HPI. All other systems are other negative and/or noncontributory. PHYSICAL EXAM: General Impression: Alert and oriented x3, not in acute distress HEENT: Normocephalic atraumatic, extra-ocular movements intact, pupils equal and reactive to light bilaterally, mucous membranes moist. Cardiovascular: Heart regular rate and rhythm Chest: Able to complete full sentences, no retractions, no tachypnea Abdomen: abdomen soft, non-tender, non-distended, no organomegaly Musculoskeletal: Pulses present and equal in all extremities, no peripheral edema, mild tenderness to palpation of the bilateral hips and posterior cervical spine Motor: no focal deficits noted Neurological: CN II-XII grossly intact, no focal motor or sensory deficits noted Skin: Intact with no visualized rashes Psych: Normal affect and mood ED course: 85-year-old well-appearing female on anticoagulation medications presents to the emergency department for neck pain and bilateral hip pain after a mechanical fall. Vital Signs upon arrival are within acceptable limits. No obvious signs of traumatic injury on physical exam. Coag panel is unremarkable. Pelvis x-ray and bilateral hips x-ray shows no acute processes. Computed tomography scan of the head and C-spine shows no acute processes. Disposition options were discussed. Patient was given the option to be admitted to the hospital she felt too weak to go home especially since she lives by herself. She was ambulated at bedside didn't feel very stable. She lives alone by herself at home gets around with a walker. She does not have anyone to come home and help her. Neither does she have any place to go for assistance. Patient requested to be admitted. Given patient's age, comorbidities and functional status patient is a significant fall risk. Furthermore she takes and a coagulation medications. Patient be admitted. Physical therapy consulted. She does have some mild coccygeal pain. Patient given a lidocaine patch in that area. Patient admitted to Dr. Wayne. - Related Data Home Medications Medication Instructions Recorded Confirmed Levothyroxine Sodium [Synthroid] 50 mcg PO DAILY 11/07/14 01/13/21 Rosuvastatin [Crestor] 20 mg PO HS 10/09/16 01/13/21 Clopidogrel [Plavix] 75 tab PO DAILY 04/27/18 01/13/21 Metoprolol Succinate (ER) [Toprol 50 mg PO BID 05/17/18 01/13/21 XL] Famotidine [Pepcid] 20 mg PO HS 03/06/19 01/13/21 Furosemide [Lasix] 40 mg PO DAILY 03/06/19 01/13/21 Potassium Chloride ER [K-Dur 20] 20 meq PO DAILY 03/06/19 01/13/21 Previous Rx's Medication Instructions Recorded Rivaroxaban [Xarelto] 15 mg PO W/SUPPER tab 01/17/18 HYDROcodone/APAP 7.5-325MG [[place] 1 tab PO Q8HR PRN 30 Days #45 tab 12/18/20 7.5-325] Allergies Allergy/AdvReac Type Severity Reaction Status Date / Time hydromorphone [From Dilaudid] AdvReac Nausea & Verified 01/13/21 08:36 Vomiting lorazepam [From Ativan] AdvReac Hallucinati Verified 01/13/21 08:36 ons Review of Systems ROS Statement: Those systems with pertinent positive or pertinent negative responses have been documented in the HPI. ROS Other: All systems not noted in ROS Statement are negative. Past Medical History Past Medical History: Atrial Fibrillation, Atrial Flutter, Coronary Artery Disease (CAD), Cancer, Heart Failure, COPD, Hyperlipidemia, Hypertension, Liver Disease, Thyroid Disorder, Vascular Disorder Additional Past Medical History / Comment(s): hx Kidney Stones, Chronic N/T BILAT LEGS, WITH BLE EDEMA, states has had lymphedema with weeping valeria lower legs, degenerative arthritis, hx hepatitis C, hx cervical cancer, PVD Last Myocardial Infarction Date:: 2009 History of Any Multi-Drug Resistant Organisms: None Reported Past Surgical History: Appendectomy, Cholecystectomy, Heart Catheterization With Stent, Hysterectomy, Joint Replacement, Pacemaker Additional Past Surgical History / Comment(s): valeria lower ext vascular repairs,2-6-17 abd. aortogram, ERCP, 4 cardiac stents, left hip replacement Past Anesthesia/Blood Transfusion Reactions: Family History of Problems w/ Anesthesia Additional Past Anesthesia/Blood Transfusion Reaction / Comment(s): sister-long time to come out Date of Last Stent Placement:: 2010? Type of Cardiac Device: Permanent Pacemaker Device Placement Date:: 2014 Past Psychological History: No Psychological Hx Reported Smoking Status: Former smoker Past Alcohol Use History: None Reported Past Drug Use History: None Reported - Past Family History Son(s) Family Medical History: Cancer Additional Family Medical History / Comment(s): Patient has 3 sons and one has been diagnosed with bladder cancer. Father Family Medical History: COPD (father at age of 89 from COPD/emphysema.) Additional Family Medical History / Comment(s): EMPHYSEMA. Father at age 89 from COPD. Mother Family Medical History: Chest Pain / Angina, Myocardial Infarction ([place]) (mother at age of 91 from myocardial infarction) Additional Family Medical History / Comment(s): Mother at age 91 from myocardial infarction. Brother(s) Family Medical History: Cancer Additional Family Medical History / Comment(s): Patient has 2 brothers and one was diagnosed with esophageal cancer with metastatic disease. Daughter(s) Family Medical History: Cancer (patient has 3 daughters one of them was diagnosed with leukemia.) Additional Family Medical History / Comment(s): Patient has 3 daughters and one diagnosed with leukemia. General Exam Limitations: no limitations Course Vital Signs 01/13/21 01/13/21 07:27 08:32 Temperature 97.5 F L Pulse Rate 79 81 Respiratory 18 18 Rate Blood Pressure 127/74 141/83 O2 Sat by Pulse 95 95 Oximetry Medical Decision Making - Lab Data Lab Results 01/13/21 Range/Units 07:56 PT 11.8 (9.0-12.0) sec INR 1.1 (<1.2) APTT 24.1 (22.0-30.0) sec Disposition Clinical Impression: Fall Disposition: ADMITTED IP TO THIS HOSP Condition: Fair Referrals: Bertram Kirkpatrick MD [REFERRING] - 1-2 days
--- NOTE | 2021-01-13 08:30 | CT ---
EXAMINATION TYPE: CT brain roland laird con DATE OF EXAM: 01/13/2021 COMPARISON: 04/19/2012 HISTORY: fall CT DLP: 1362.[address] of the brain was performed. The ventricles, basal cisterns and sulci overlying the cerebral convexities demonstrate mild enlargem ent. There is no evidence for intracranial hemorrhage or sulcal effacement. There is decreased attenuatio n about the periventricular white matter and deep white matter of both cerebral hemispheres, compatib le with chronic small vessel ischemia. No mass effects are seen. If symptoms persist consider MRI. Osseous calvarium is intact. IMPRESSION: 1. Age related atrophic and chronic small vessel ischemic change without acute intracranial process seen at this time. CT Cervical Spine: Unenhanced CT of the cervical spine was performed with bone and soft tissue window settings submitted . Coronal and sagittal reconstruction is obtained. There is normal alignment and prevertebral soft tissues. No evidence for acute cervical fracture . Reversal of the normal cervical lordosis. Scattered degenerative disc disease and spondylosis. Biapic al scarring. IMPRESSION: 1. No evidence for acute fracture or subluxation of the cervical spine.
--- NOTE | 2021-01-13 08:39 | XR ---
EXAMINATION TYPE: AP view pelvis and 2 views bilateral hips DATE OF EXAM: 01/13/2021 COMPARISON: and 04/17/2012 HIST : 85-year-old female with fall and pain FINDINGS: Marked osteopenia. Iliac vascular stents are present. Left hip arthroplasty redemonstrated. Alignment is unchanged. No periprostatic fracture identified For the degree of osteopenia. Redemonstrated end-stage, bone on bone degenerative change of the right hip with complete loss of migue nt space along the superolateral margin, extensive subchondral sclerosis, and early bony remodeling. No displaced fracture is seen. IMPRESSION: 1. Left hip total arthroplasty, unchanged in appearance, no evident acute complication. 2. Osteopenia with redemonstrated severe endstage, [id number] right hip OA. No displaced fracture s een.
[2021-01-13 08:41] LABS: INR 1.1 (<1.2); Partial Thromboplastin Time 24.1 sec (22.0-30.0); Prothrombin Time 11.8 sec (9.0-12.0)
[2021-01-13] MEDS ORDERED: ACETAMINOPHEN TAB 500 MG TAB PO STA ×2 (09:00→12:57)
[2021-01-13] MEDS ORDERED: LIDOCAINE 5% PATCH TOPICAL STA (09:00)
[2021-01-13] MEDS ORDERED: NALOXONE 0.4 MG/ML 1 ML VIAL IV PRN (10:34)
[2021-01-13 11:34] LABS: Basophils % (A) 0 %; Eosinophils # (A) 0.2 k/uL (0-0.7); Eosinophils % (A) 2 %; HCT 44.1 % (34.0-46.0); HGB 14.2 gm/dL (11.4-16.0); Lymphocytes # (A) 1.7 k/uL (1.0-4.8); Lymphocytes % (A) 17 %; MCH 30.1 pg (25.0-35.0); MCHC 32.1 g/dL (31.0-37.0); MCV 93.5 fL (80.0-100.0); Monocytes # (A) 0.4 k/uL (0-1.0); Monocytes % (A) 4 %; Neutrophils # (A) 7.8 k/uL (1.3-7.7); Neutrophils % (A) 76 %; Platelet Count 233 k/uL (150-450); RBC 4.71 m/uL (3.80-5.40); RDW 14.4 % (11.5-15.5); WBC 10.3 k/uL (3.8-10.6)
[2021-01-13 11:49] LABS: Calcium 9.7 mg/dL (8.4-10.2); Potassium 3.7 mmol/L (3.5-5.1)
[2021-01-13] MEDS ORDERED: traMADol 50 MG TAB PO STA (12:58)
[2021-01-13] MEDS: SODIUM CHLORIDE 0.9% 1,000 ML IV SCH (13:09)
[2021-01-13] MEDS: ATORVASTATIN 40 MG TAB PO SCH (20:14)
[2021-01-13] MEDS: METOPROLOL SUCCINATE (ER) 50 MG TAB.ER.24H PO SCH (20:14)
[2021-01-13] MEDS: FAMOTIDINE 20 MG TAB PO SCH (20:14)
[2021-01-13] MEDS: RIVAROXABAN 15 MG TAB PO SCH (20:15)
[2021-01-14] MEDS: HYDROcodone/APAP 7.5-325MG 1 EACH TAB PO PRN ×3 (03:57→20:16)
[2021-01-14] MEDS: LEVOTHYROXINE 50 MCG TAB PO SCH (05:20)
[2021-01-14] MEDS: POTASSIUM CHLORIDE ER 20 MEQ TAB.ER PO SCH (08:36)
[2021-01-14] MEDS: METOPROLOL SUCCINATE (ER) 50 MG TAB.ER.24H PO SCH ×2 (08:37→20:16)
[2021-01-14] MEDS: CLOPIDOGREL 75 MG TAB PO SCH (08:37)
[2021-01-14] MEDS: FUROSEMIDE 40 MG TAB PO SCH (08:37)
[2021-01-14] MEDS: SODIUM CHLORIDE 0.9% 1,000 ML IV SCH (09:34)
[2021-01-14] MEDS: TAMSULOSIN 0.4 MG CAP.ER.24H PO SCH (11:26)
[2021-01-14] MEDS: RIVAROXABAN 15 MG TAB PO SCH (17:43)
--- NOTE | 2021-01-14 19:49 | P.HPIM ---
History of Present Illness H&P Date: 01/14/21 Rohini Hansen, is an 85-year-old female who presented to [facility] emergency room after sustaining a fall and having severe pain in her hip The patient was evaluated in the emergency room vital examination on presentation revealed a temperature of 98.1 pulse 87 respirations 16 blood pressure 107/69 pulse ox 93% on room air Laboratory data reveals a white blood count of 10.3 hemoglobin 14.2 platelet count 233 sodium 143 potassium 3.7 chloride 32 BUN 14 creatinine 1.13 glucose level [id number] Testing in the emergency room revealed computed tomography scan of the brain and the cervical spine revealed no intracranial or bleeding and no evidence for acute fracture or subluxation of the cervical spine, x-ray of the pelvis and hips revealed evidence of severe arthritis otherwise no evidence of acute fracture Patient was admitted to medical floor for further evaluation and treatment history of coronary artery disease with previous history of angioplasty and stent placement, history of cardiac arrhythmia with history of pacemaker placement, history of atrial fibrillation, history of hypertension, history of hyperlipidemia, history of kidney stones, history of osteoarthritis with left hip replacement Past medical history is significant for On review of systems Past Medical History Past Medical History: Atrial Fibrillation, Atrial Flutter, Coronary Artery Disease (CAD), Cancer, Heart Failure, COPD, Hyperlipidemia, Hypertension, Liver Disease, Thyroid Disorder, Vascular Disorder Additional Past Medical History / Comment(s): hx Kidney Stones, Chronic N/T BILAT LEGS, WITH BLE EDEMA, states has had lymphedema with weeping valeria lower legs, degenerative arthritis, hx hepatitis C, hx cervical cancer, PVD Last Myocardial Infarction Date:: 2009 History of Any Multi-Drug Resistant Organisms: None Reported Past Surgical History: Appendectomy, Cholecystectomy, Heart Catheterization With Stent, Hysterectomy, Joint Replacement, Pacemaker Additional Past Surgical History / Comment(s): valeria lower ext vascular repairs,2-6-17 abd. aortogram, ERCP, 4 cardiac stents, left hip replacement Past Anesthesia/Blood Transfusion Reactions: Family History of Problems w/ Anesthesia Additional Past Anesthesia/Blood Transfusion Reaction / Comment(s): sister-long time to come out Date of Last Stent Placement:: 2010? Type of Cardiac Device: Permanent Pacemaker Device Placement Date:: 2014 Past Psychological History: No Psychological Hx Reported Smoking Status: Former smoker Past Alcohol Use History: None Reported Additional Past Alcohol Use History / Comment(s): Patient quit smoking in 2019. She smoked one pack per day for 70 years Past Drug Use History: None Reported - Past Family History Son(s) Family Medical History: Cancer Additional Family Medical History / Comment(s): Patient has 3 sons and one has been diagnosed with bladder cancer. Father Family Medical History: COPD (father at age of 89 from COPD/emphysema.) Additional Family Medical History / Comment(s): EMPHYSEMA. Father at age 89 from COPD. Mother Family Medical History: Chest Pain / Angina, Myocardial Infarction ([place]) (mother at age of 91 from myocardial infarction) Additional Family Medical History / Comment(s): Mother at age 91 from myocardial infarction. Brother(s) Family Medical History: Cancer Additional Family Medical History / Comment(s): Patient has 2 brothers and one was diagnosed with esophageal cancer with metastatic disease. Daughter(s) Family Medical History: Cancer (patient has 3 daughters one of them was diagnosed with leukemia.) Additional Family Medical History / Comment(s): Patient has 3 daughters and one diagnosed with leukemia. Medications and Allergies Home Medications Medication Instructions Recorded Confirmed Type Levothyroxine Sodium [Synthroid] 50 mcg PO DAILY 11/07/14 01/13/21 History Rosuvastatin [Crestor] 20 mg PO HS 10/09/16 01/13/21 History Rivaroxaban [Xarelto] 15 mg PO W/SUPPER tab 01/17/18 01/13/21 Rx Clopidogrel [Plavix] 75 tab PO DAILY 04/27/18 01/13/21 History Metoprolol Succinate (ER) [Toprol 50 mg PO BID 05/17/18 01/13/21 History XL] Famotidine [Pepcid] 20 mg PO HS 03/06/19 01/13/21 History Furosemide [Lasix] 40 mg PO DAILY 03/06/19 01/13/21 History Potassium Chloride ER [K-Dur 20] 20 meq PO DAILY 03/06/19 01/13/21 History HYDROcodone/APAP 7.5-325MG [[place] 1 tab PO Q8HR PRN 30 Days #45 tab 12/18/20 01/13/21 Rx 7.5-325] Allergies Allergy/AdvReac Type Severity Reaction Status Date / Time hydromorphone [From Dilaudid] AdvReac Nausea & Verified 01/13/21 08:36 Vomiting lorazepam [From Ativan] AdvReac Hallucinati Verified 01/13/21 08:36 ons Physical Exam Vitals: Vital Signs Temp Pulse Pulse Pulse Resp BP BP 01/14/21 11:24 97.7 F 86 16 01/14/21 04:52 98.1 F 87 16 107/69 01/13/21 20:00 97.9 F 77 16 125/75 01/13/21 18:11 97.5 F L 77 18 113/59 01/13/21 17:00 77 18 113/59 01/13/21 16:00 63 18 01/13/21 15:00 66 18 01/13/21 14:00 77 18 01/13/21 13:00 89 18 107/58 BP Pulse Ox 01/14/21 11:24 121/73 99 01/14/21 04:52 93 L 01/13/21 20:00 94 L 01/13/21 18:11 95 01/13/21 17:00 95 01/13/21 16:00 95 01/13/21 15:00 95 01/13/21 14:00 95 01/13/21 13:00 95 Intake and Output 01/13/21 01/14/21 01/14/21 22:59 06:59 14:59 Output Total 469 Balance -469 Output: Post Void Residual 469 Other: Voiding Method Bedside Commode Bedside Commode # Voids 1 1 In general patient is alert and oriented x 3 in no distress HEENT head normocephalic and atraumatic Neck is supple no JVD no goiter no lymphadenopathy no carotid bruit Chest examination is clear to auscultation no crackles no wheezing Cardiac exam reveals regular heart sounds S1 and S2 no gallops no murmurs Abdomen is soft nontender no organomegaly with normal bowel sounds Extremity exam reveals no edema no cyanosis or clubbing Neurological examination reveals no gross focal deficits Results CBC & Chem 7: 01/13/21 11:26 01/13/21 11:26 Thrombosis Risk Factor Assmnt - Choose All That Apply Each Factor Represents 1 point: Obesity (BMI >25), Swollen legs (current) Other Risk Factors: Yes Each Risk Factor Represents 3 Points: Age 75 years or older Thrombosis Risk Factor Assessment Total Risk Factor Score: 5 Thrombosis Risk Factor Assessment Level: High Risk Assessment and Plan Plan: Fall with bilateral hip pain no evidence of fracture on x-ray Physical debility physical therapy and occupational therapy consulted Underlying history of hypertension Underlying history of hyperlipidemia Underlying history of coronary artery disease with previous history of angioplasty and stent placement last myocardial infarction in 2009 Underlying history of cardiac arrhythmia status post pacemaker placement History of atrial fibrillation At this time patient is admitted to medical floor He is still having severe pain in the left hip area and having difficulty ambulating Physical therapy and occupational therapy requested Will obtain computed tomography scan of the left hip and consult orthopedic surgery Will follow closely
[2021-01-14] MEDS: ATORVASTATIN 40 MG TAB PO SCH (20:16)
[2021-01-14] MEDS: FAMOTIDINE 20 MG TAB PO SCH (20:16)
[2021-01-15 00:09] LABS: Appearance,Urine Cloudy (Clear); Bacteria,Urine Few /hpf; Bilirubin,Urine Negative (Negative); Blood,Urine Trace (Negative); Color,Urine Yellow; Glucose,Urine (UA) Negative (Negative); Hyaline Casts,Urine 4 /lpf (0-2); Ketones,Urine Negative (Negative); Leukocyte Esterase,Urine Large (Negative); Nitrite,Urine Negative (Negative); Protein,Urine Trace (Negative); RBC,Urine 3 /hpf (0-5); Specific Gravity,Urine 1.011 (1.001-1.035); Squamous Epithelial Cell,Urine <1 /hpf (0-4); Urobilinogen,Urine <2.0 mg/dL (<2.0); WBC,Urine >182 /hpf (0-5)
[2021-01-15] MEDS: HYDROcodone/APAP 7.5-325MG 1 EACH TAB PO PRN ×2 (06:01→16:01)
[2021-01-15] MEDS: LEVOTHYROXINE 50 MCG TAB PO SCH (06:01)
[2021-01-15 06:34] LABS: Basophils % (A) 0 %; Eosinophils # (A) 0.4 k/uL (0-0.7); Eosinophils % (A) 5 %; HCT 36.8 % (34.0-46.0); HGB 11.9 gm/dL (11.4-16.0); Hypochromasia Slight; Lymphocytes # (A) 1.3 k/uL (1.0-4.8); Lymphocytes % (A) 18 %; MCHC 32.4 g/dL (31.0-37.0); MCV 95.6 fL (80.0-100.0); Mean Platelet Volume 7.7; Monocytes # (A) 0.4 k/uL (0-1.0); Monocytes % (A) 6 %; Neutrophils # (A) 5.2 k/uL (1.3-7.7); Neutrophils % (A) 69 %; Platelet Count 194 k/uL (150-450); RBC 3.85 m/uL (3.80-5.40); RDW 14.5 % (11.5-15.5); WBC 7.5 k/uL (3.8-10.6)
[2021-01-15] MEDS: POTASSIUM CHLORIDE ER 20 MEQ TAB.ER PO SCH (08:39)
[2021-01-15] MEDS: FUROSEMIDE 40 MG TAB PO SCH (08:39)
[2021-01-15] MEDS: CLOPIDOGREL 75 MG TAB PO SCH (08:39)
[2021-01-15] MEDS: METOPROLOL SUCCINATE (ER) 50 MG TAB.ER.24H PO SCH ×2 (08:39→20:14)
[2021-01-15] MEDS: TAMSULOSIN 0.4 MG CAP.ER.24H PO SCH (08:39)
--- NOTE | 2021-01-15 09:09 | CT ---
EXAMINATION TYPE: CT hip RT wo con, CT hip LT wo con DATE OF EXAM: 01/15/2021 COMPARISON: CTA abdomen and pelvis January 11, 2018. Pelvic and bilateral hip x-ray 2 days earlier HISTORY: Fall, injury, severe pain in both hips CT DLP: 443.1 mGycm Automated exposure control for dose reduction was used. FINDINGS: CT of left hip redemonstrates metallic hardware from left hip arthroplasty. Position stable and [employer]. Streak artifact from metallic hardware makes evaluation slightly suboptimal. No acute fractu re clearly seen. Osseous structures are demineralized. Pubic symphysis remains intact. No suspicious left groin hernia or adenopathy. Muscle bulk is maintained except superiorly near lateral scarring wh ere there is [id number] generalized atrophy adjacent to the iliac bone near axial image 5 now p resent. Right hip redemonstrates advanced superior joint space loss with joint space sclerosis and subchondra l cystic change. There is moderate head neck collar spurring. No acute fracture or dislocation is see n. Osseous structures redemonstrated demineralized. Prominent right groin lymph node axial image 33 i s subcentimeter in short axis but more prominent from 2018 study. No right groin hernia. Muscle bulk fairly well maintained. There is right external iliac artery stent graft redemonstrated. Prominent sigmoid colonic diverticul osis is redemonstrated. IMPRESSION: No acute fracture or dislocation in either hip. Advanced degenerative changes right hip j oint redemonstrated. Left prosthesis redemonstrated and stable in position.
[2021-01-15 09:52] LABS: African American GFR (CKD) 48.1 (60.0-200.0); Albumin 3.1 g/dL (3.80-4.90); Albumin/Globulin Ratio 1.07 (1.60-3.17); Anion Gap 4.6 mmol/L (4.00-12.00); Calcium 8.4 mg/dL (8.7-10.3); Carbon Dioxide 32.4 mmol/L (21.6-31.8); Globulin 2.9 g/dL (1.6-3.3); Non-African American GFR(CKD) 41.5 (60.0-200.0)
--- NOTE | 2021-01-15 09:55 | P.CONS ---
History of Present Illness - Chief Complaint Walking difficulty - History of Present Illness I had the opportunity to see patient for inpatient rehab consultation with regard to walking difficulty. She was admitted to [facility] January 13 history of fall and bilateral hip pain. History of previous left SILVINA. Multiple tests done. Head CT demonstrates only age-related change. C-spine CT with reversal of lordosis. Pelvic x-ray consistent with her left hip prosthesis and diffuse osteopenia. Computed tomography scan of hips demonstrates marked arthritis right hip and prosthesis in the left hip. Has started therapies. PT reports moderate assistance bed mobility, transfers, gait 5 feet with roller walker. OT reports minimal assistance for upper dressing and bathing and moderate assistance for lower dressing and functional debility/transfers. Supervision for toileting. Previous functional history as elicited from patient: 85-year-old right-handed white female who is lives in one floor home with daughter. Daughter generally does the cooking and laundry. Patient retired. Patient independent previously did driving, sitdown shower and gait with standard walker. Doesn't like walkers with wheels. PCP Dr. Reina Dunlap. Review of Systems Review of systems: ENT: Denies sneezes or discharge. Eyes: Denies discharge or photophobia. Cardiac: Denies chest pain or palpitation. Pulmonary: Denies cough or shortness of breath. Breast: Denies discharge or lumps. Gastrointestinal: Denies nausea, emesis, constipation, diarrhea. Genitourinary: Denies discharge or frequency. Musculoskeletal: Long-standing back and hips of [id number] on right and pros thesis and left. Neurologic: Denies motor or sensory change. Endocrine: Denies shakes or sweats. Oncology: Denies cancers. Dermatologic: Denies rash, itching, pruritus. ALLERGY/immunology: Denies sneezes, rashes. Past Medical History Past Medical History: Atrial Fibrillation, Atrial Flutter, Coronary Artery Disease (CAD), Cancer, Heart Failure, COPD, Hyperlipidemia, Hypertension, Liver Disease, Thyroid Disorder, Vascular Disorder Additional Past Medical History / Comment(s): hx Kidney Stones, Chronic N/T BILAT LEGS, WITH BLE EDEMA, states has had lymphedema with weeping valeria lower legs, degenerative arthritis, hx hepatitis C, hx cervical cancer, PVD Last Myocardial Infarction Date:: 2009 History of Any Multi-Drug Resistant Organisms: None Reported Past Surgical History: Appendectomy, Cholecystectomy, Heart Catheterization With Stent, Hysterectomy, Joint Replacement, Pacemaker Additional Past Surgical History / Comment(s): valeria lower ext vascular repairs,2-6-17 abd. aortogram, ERCP, 4 cardiac stents, left hip replacement Past Anesthesia/Blood Transfusion Reactions: Family History of Problems w/ Anesthesia Additional Past Anesthesia/Blood Transfusion Reaction / Comm: sister-long time to come out Date of Last Stent Placement:: 2010? Type of Cardiac Device: Permanent Pacemaker Device Placement Date:: 2014 Past Psychological History: No Psychological Hx Reported Smoking Status: Former smoker Past Alcohol Use History: None Reported Additional Past Alcohol Use History / Comment(s): Patient quit smoking in 2019. She smoked one pack per day for 70 years Past Drug Use History: None Reported - Past Family History Son(s) Family Medical History: Cancer Additional Family Medical History / Comment(s): Patient has 3 sons and one has been diagnosed with bladder cancer. Father Family Medical History: COPD (father at age of 89 from COPD/emphysema.) Additional Family Medical History / Comment(s): EMPHYSEMA. Father at age 89 from COPD. Mother Family Medical History: Chest Pain / Angina, Myocardial Infarction ([place]) (mother at age of 91 from myocardial infarction) Additional Family Medical History / Comment(s): Mother at age 91 from myocardial infarction. Brother(s) Family Medical History: Cancer Additional Family Medical History / Comment(s): Patient has 2 brothers and one was diagnosed with esophageal cancer with metastatic disease. Daughter(s) Family Medical History: Cancer (patient has 3 daughters one of them was diagnosed with leukemia.) Additional Family Medical History / Comment(s): Patient has 3 daughters and one diagnosed with leukemia. Medications and Allergies Home Medications Medication Instructions Recorded Confirmed Type Levothyroxine Sodium [Synthroid] 50 mcg PO DAILY 11/07/14 01/13/21 History Rosuvastatin [Crestor] 20 mg PO HS 10/09/16 01/13/21 History Rivaroxaban [Xarelto] 15 mg PO W/SUPPER tab 01/17/18 01/13/21 Rx Clopidogrel [Plavix] 75 tab PO DAILY 04/27/18 01/13/21 History Metoprolol Succinate (ER) [Toprol 50 mg PO BID 05/17/18 01/13/21 History XL] Famotidine [Pepcid] 20 mg PO HS 03/06/19 01/13/21 History Furosemide [Lasix] 40 mg PO DAILY 03/06/19 01/13/21 History Potassium Chloride ER [K-Dur 20] 20 meq PO DAILY 03/06/19 01/13/21 History HYDROcodone/APAP 7.5-325MG [[place] 1 tab PO Q8HR PRN 30 Days #45 tab 12/18/20 01/13/21 Rx 7.5-325] Allergies Allergy/AdvReac Type Severity Reaction Status Date / Time hydromorphone [From Dilaudid] AdvReac Nausea & Verified 01/13/21 08:36 Vomiting lorazepam [From Ativan] AdvReac Hallucinati Verified 01/13/21 08:36 ons Physical Exam Vitals: Vital Signs Temp Pulse Pulse Resp BP BP Pulse Ox 01/15/21 05:00 98.9 F 95 20 114/78 92 L 01/14/21 20:00 98.6 F 86 20 126/72 92 L 01/14/21 11:24 97.7 F 86 16 121/73 99 Intake and Output 01/14/21 01/15/21 01/15/21 22:59 06:59 14:59 Intake Total 120 475 Output Total 500 Balance 120 -25 Intake: Oral 120 475 Output: Urine 400 Post Void Residual 100 Other: Voiding Method Bedside Commode # Voids 4 Skin: Atrophic, intact. General: Overweight build and comfortable appearance. Head: Normocephalic, atraumatic. Eyes: Symmetric. Pupils equal round. Ears: Symmetric. Hearing within normal limits. Mouth: Clear. Neck: Supple. Carotid without bruit. Cardiac: Regular rate and rhythm. Lungs: Clear anteriorly and posteriorly. Abdomen: Soft active nontender, overweight. Extremities: Normal tone. Moderate to marked arthritic changes throughout. Some wasting noted in hands. Neurological: Mental status: Alert, cooperative, pleasant. Cranial nerves: Symmetric facial tone and trapezius. Motor: Normal strength and isolation all 4 limbs. Sensation: Intact throughout. DTRs: Symmetric and equal throughout. Mobility: Patient required minimal assist transfer to Belinda chair from nurse. Results CBC & Chem 7: 01/15/21 05:42 01/13/21 11:26 Labs: Abnormal Lab Results - Last 24 Hours (Table) 01/14/21 Range/Units 19:40 Urine Appearance Cloudy H (Clear) Urine Protein Trace H (Negative) Urine Blood Trace H (Negative) Ur Leukocyte Esterase Large H (Negative) Urine WBC >182 H (0-5) /hpf Urine WBC Clumps Many H (None) /hpf Urine Bacteria Few H (None) /hpf Hyaline Casts 4 H (0-2) /lpf Assessment and Plan (1) Fall Current Visit: Yes Status: Acute Code(s): W19.XXXA - UNSPECIFIED FALL, INITIAL ENCOUNTER SNOMED Code(s): 0393710 Plan: Impression: 1. Walking difficulty due to bilateral hip pain, negative for fractures. Marked arthritis right hip endoprosthesis left hip. 2. Heart disease with Coronary artery disease, CHF, atrial fibrillation, atrial flutter. 3. Hypertension. 4. Dyslipidemia. 5. Liver disease. 6. History of cancer. 7. COPD. 8. Hypothyroid. 9. Peripheral Vascular disease. Comments and plan: At this time PT and OT are ongoing. I discussed possible inpatient rehab with patient and she voices a strong preference for return to home with therapies at home.
--- NOTE | 2021-01-15 11:03 | P.PN ---
Subjective Progress Note Date: 01/15/21 Rohini Hansen, is an 85-year-old female who presented to [facility] emergency room after sustaining a fall and having severe pain in her hip The patient was evaluated in the emergency room vital examination on presentation revealed a temperature of 98.1 pulse 87 respirations 16 blood p ressure 107/69 pulse ox 93% on room air Laboratory data reveals a white blood count of 10.3 hemoglobin 14.2 platelet count 233 sodium 143 potassium 3.7 chloride 32 BUN 14 creatinine 1.13 glucose level [id number] Testing in the emergency room revealed computed tomography scan of the brain and the cervical spine revealed no intracranial or bleeding and no evidence for acute fracture or subluxation of the cervical spine, x-ray of the pelvis and hips revealed evidence of severe arthritis otherwise no evidence of acute fracture Patient was admitted to medical floor for further evaluation and treatment history of coronary artery disease with previous history of angioplasty and stent placement, history of cardiac arrhythmia with history of pacemaker placement, history of atrial fibrillation, history of hypertension, history of hyperlipidemia, history of kidney stones, history of osteoarthritis with left hip replacement Past medical history is significant for On review of systems On 01/15/2021 patient is alert and oriented 3. UA positive for urinary tract infection. Nursing staff unable to get IV patient refusing any further attempts we'll place patient on oral antibiotic and urine culture ordered. CT of hip ordered this a.m. with BX services have been consulted. Patient also having post void residual patient started on Flomax and urology service is consulted and this time patient denies chest pain or shortness breath. Patient nausea vomiting or diarrhea. Patient denies any urinary burning or frequency Objective - Vital Signs Vital signs: Vital Signs Temp 98.9 F 01/15/21 05:00 Pulse 95 01/15/21 05:00 Resp 20 01/15/21 05:00 BP 114/78 01/15/21 05:00 Pulse Ox 92 L 01/15/21 05:00 Intake & Output 01/14/21 01/15/21 01/15/21 18:59 06:59 18:59 Intake Total 595 Output Total 898 500 Balance -898 95 Intake: Oral 595 Output: Urine 400 Post Void Residual 898 100 Other: Voiding Method Bedside Commode Bedside Commode Bedside Commode Diaper # Voids 4 - Exam In general patient is alert and oriented x 3 in no distress HEENT head normocephalic and atraumatic Neck is supple no JVD no goiter no lymphadenopathy no carotid bruit Chest examination is clear to auscultation no crackles no wheezing Cardiac exam reveals regular heart sounds S1 and S2 no gallops no murmurs Abdomen is soft nontender no organomegaly with normal bowel sounds Extremity exam reveals no edema no cyanosis or clubbing Neurological examination reveals no gross focal deficits - Labs CBC & Chem 7: 01/15/21 05:42 01/15/21 05:42 Labs: Abnormal Lab Results - Last 24 Hours (Table) 01/14/21 01/15/21 Range/Units 19:40 05:42 Carbon Dioxide 32.4 H (21.6-31.8) mmol/L Est GFR (CKD-EPI)AfAm 48.1 L (60.0-200.0) Est GFR (CKD-EPI)NonAf 41.5 L (60.0-200.0) Glucose 111 H (70-110) mg/dL Calcium 8.4 L (8.7-10.3) mg/dL Total Protein 6.0 L (6.2-8.2) g/dL Albumin 3.10 L (3.80-4.90) g/dL Albumin/Globulin Ratio 1.07 L (1.60-3.17) g/dL Urine Appearance Cloudy H (Clear) Urine Protein Trace H (Negative) Urine Blood Trace H (Negative) Ur Leukocyte Esterase Large H (Negative) Urine WBC >182 H (0-5) /hpf Urine WBC Clumps Many H (None) /hpf Urine Bacteria Few H (None) /hpf Hyaline Casts 4 H (0-2) /lpf Assessment and Plan Plan: Fall with bilateral hip pain no evidence of fracture on x-ray Physical debility physical therapy and occupational therapy consulted Underlying history of hypertension Underlying history of hyperlipidemia Underlying history of coronary artery disease with previous history of ang ioplasty and stent placement last myocardial infarction in 2009 Underlying history of cardiac arrhythmia status post pacemaker placement History of atrial fibrillation Urinary retention. Patient started on Flomax urology service is consulted Urinary tract infection. Patient started on antibiotic urine culture ordered At this time patient is admitted to medical floor He is still having severe pain in the left hip area and having difficulty ambulating Physical therapy and occupational therapy requested Will obtain computed tomography scan of the left hip and consult orthopedic surgery Social work service is consulted for possible ECF placement Will follow closely
[2021-01-15] MEDS: SODIUM CHLORIDE 0.9% 1,000 ML IV SCH (11:47)
[2021-01-15] MEDS: CEFDINIR 300 MG CAP PO SCH (11:48)
--- NOTE | 2021-01-15 12:45 | P.CNOR ---
History of Present Illness - [facility] Consult date: 01/15/21 Consult reason: joint pain History of present illness: Patient is a pleasant 85-year-old female seen in consultation for right hip pain at bedside this afternoon. She states she's had chronic right hip pain where she has been seen in our office last of which was July 2020. She was not surgical candidate for total hip replacement. Conservative measures were recommended. She had a recent fall with continued right hip pain. She does not feel that she has new or increased pain compared to the past. She has pain at the outer right hip and at the groin at times. Pain worsens with ambulation, weightbearing and activities. She denies any constant radicular symptoms including numbness or tingling. She has no calf pain. She has no fevers or chills. Review of Systems All systems: negative Constitutional: Denies chills, Denies fever Eyes: denies blurred vision, denies pain Ears, nose, mouth and throat: Denies headache, Denies sore throat Cardiovascular: Denies chest pain, Denies shortness of breath Respiratory: Denies cough Gastrointestinal: Denies abdominal pain, Denies diarrhea, Denies nausea, Denies vomiting Genitourinary: Denies dysuria, Denies hematuria Musculoskeletal: Denies myalgias Integumentary: Denies pruritus, Denies rash Neurological: Denies numbness, Denies weakness Psychiatric: Denies anxiety, Denies depression Endocrine: Denies fatigue, Denies weight change Past Medical History Past Medical History: Atrial Fibrillation, Atrial Flutter, Coronary Artery Disease (CAD), Cancer, Heart Failure, COPD, Hyperlipidemia, Hypertension, Liver Disease, Thyroid Disorder, Vascular Disorder Additional Past Medical History / Comment(s): hx Kidney Stones, Chronic N/T BILAT LEGS, WITH BLE EDEMA, states has had lymphedema with weeping valeria lower legs, degenerative arthritis, hx hepatitis C, hx cervical cancer, PVD Last Myocardial Infarction Date:: 2009 History of Any Multi-Drug Resistant Organisms: None Reported Past Surgical History: Appendectomy, Cholecystectomy, Heart Catheterization With Stent, Hysterectomy, Joint Replacement, Pacemaker Additional Past Surgical History / Comment(s): valeria lower ext vascular repairs,2-6-17 abd. aortogram, ERCP, 4 cardiac stents, left hip replacement Past Anesthesia/Blood Transfusion Reactions: Family History of Problems w/ Anesthesia Additional Past Anesthesia/Blood Transfusion Reaction / Comm: sister-long time to come out Date of Last Stent Placement:: 2010? Type of Cardiac Device: Permanent Pacemaker Device Placement Date:: 2014 Past Psychological History: No Psychological Hx Reported Smoking Status: Former smoker Past Alcohol Use History: None Reported Additional Past Alcohol Use History / Comment(s): Patient quit smoking in 2019. She smoked one pack per day for 70 years Past Drug Use History: None Reported - Past Family History Son(s) Family Medical History: Cancer Additional Family Medical History / Comment(s): Patient has 3 sons and one has been diagnosed with bladder cancer. Father Family Medical History: COPD (father at age of 89 from COPD/emphysema.) Additional Family Medical History / Comment(s): EMPHYSEMA. Father at age 89 from COPD. Mother Family Medical History: Chest Pain / Angina, Myocardial Infarction ([place]) (mother at age of 91 from myocardial infarction) Additional Family Medical History / Comment(s): Mother at age 91 from myocardial infarction. Brother(s) Family Medical History: Cancer Additional Family Medical History / Comment(s): Patient has 2 brothers and one was diagnosed with esophageal cancer with metastatic disease. Daughter(s) Family Medical History: Cancer (patient has 3 daughters one of them was diagnosed with leukemia.) Additional Family Medical History / Comment(s): Patient has 3 daughters and one diagnosed with leukemia. Medications and Allergies Home Medications Medication Instructions Recorded Confirmed Type Levothyroxine Sodium [Synthroid] 50 mcg PO DAILY 11/07/14 01/13/21 History Rosuvastatin [Crestor] 20 mg PO HS 10/09/16 01/13/21 History Rivaroxaban [Xarelto] 15 mg PO W/SUPPER tab 01/17/18 01/13/21 Rx Clopidogrel [Plavix] 75 tab PO DAILY 04/27/18 01/13/21 History Metoprolol Succinate (ER) [Toprol 50 mg PO BID 05/17/18 01/13/21 History XL] Famotidine [Pepcid] 20 mg PO HS 03/06/19 01/13/21 History Furosemide [Lasix] 40 mg PO DAILY 03/06/19 01/13/21 History Potassium Chloride ER [K-Dur 20] 20 meq PO DAILY 03/06/19 01/13/21 History HYDROcodone/APAP 7.5-325MG [[place] 1 tab PO Q8HR PRN 30 Days #45 tab 12/18/20 01/13/21 Rx 7.5-325] Allergies Allergy/AdvReac Type Severity Reaction Status Date / Time hydromorphone [From Dilaudid] AdvReac Nausea & Verified 01/13/21 08:36 Vomiting lorazepam [From Ativan] AdvReac Hallucinati Verified 01/13/21 08:36 ons Physical Examination Inspection of the right hip and lower extremity shows no deformity. There is no erythema or ecchymoses. She has mild tenderness to palpation at the right greater trochanter. She has mild pain at the right groin with hip flexion and internal and external rotation. She can flex at the hip 90. She has internal rotation of 30. She has external rotation of 40. Neurovascular status is intact with motor and sensation throughout the right lower extremity. Calf is soft and nontender. 2+ dorsalis pedis pulses less than 2 second capillary refill present. Results - Labs Labs: Abnormal Lab Results - Last 24 Hours (Table) 01/14/21 01/15/21 Range/Units 19:40 05:42 Carbon Dioxide 32.4 H (21.6-31.8) mmol/L Est GFR (CKD-EPI)AfAm 48.1 L (60.0-200.0) Est GFR (CKD-EPI)NonAf 41.5 L (60.0-200.0) Glucose 111 H (70-110) mg/dL Calcium 8.4 L (8.7-10.3) mg/dL Total Protein 6.0 L (6.2-8.2) g/dL Albumin 3.10 L (3.80-4.90) g/dL Albumin/Globulin Ratio 1.07 L (1.60-3.17) g/dL Urine Appearance Cloudy H (Clear) Urine Protein Trace H (Negative) Urine Blood Trace H (Negative) Ur Leukocyte Esterase Large H (Negative) Urine WBC >182 H (0-5) /hpf Urine WBC Clumps Many H (None) /hpf Urine Bacteria Few H (None) /hpf Hyaline Casts 4 H (0-2) /lpf Microbiology - Last 24 Hours (Table) 01/14/21 19:40 Urine Culture - Preliminary Urine,Voided H & H 01/13/21 01/15/21 Range/Units 11:26 05:42 Hgb 14.2 11.9 (11.4-16.0) gm/dL Hct 44.1 36.8 (34.0-46.0) % Coagulation 01/13/21 Range/Units 07:56 INR 1.1 (<1.2) Result Diagrams: 01/15/21 05:42 01/15/21 05:42 - Diagnostic results Hip x-ray: report reviewed, image reviewed Hip CT: report reviewed, image reviewed Assessment and Plan (1) Right hip pain Narrative/Plan: Patient has chronic right hip pain. She ihas advanced degenerative changes of the right hip joint. There are no fractures seen on imaging. No immediate surgical intervention is planned. Would recommend continued conservative measures including physical therapy and pain management. She cannot take anti- inflammatories due to being on Xarelto. May consider short-term corticosteroids if okay with primary team and not contraindicated with comorbidities. She may follow up as an outpatient. Thank you for the consult. Current Visit: Yes Status: Acute Priority: Medium Code(s): M25.551 - PAIN IN RIGHT HIP SNOMED Code(s): 93211573 (2) Osteoarthritis of right hip Current Visit: Yes Status: Acute Priority: Medium Code(s): M16.11 - UNILATERAL PRIMARY OSTEOARTHRITIS, RIGHT HIP SNOMED Code(s): 684535005276855 Time with Patient: Less than 30
--- NOTE | 2021-01-15 14:01 | P.GSCN ---
History of Present Illness Consult date: 01/14/21 Reason for Consult: Urinary retention History of present illness: This is an 85 yo female admitted to the hospital with a fall and debility. I maging in the ED showed no evidence of any fractures. urology is consultated for urinary retention. No previous history of retention, no known voiding issues at baseline. PVR was obtained in the ED which was 469 mL, patient declined a Myrick catheter. Denies any abdominal pain or dysuria. Review of Systems - Constitutional Reports weakness, Denies chills, Denies fever - EENT Ears, nose, mouth and throat: Denies dysphagia - Cardiovascular Denies chest pain, Denies shortness of breath - Respiratory Denies cough, Denies 7 - Gastrointestinal Reports as per HPI - Genitourinary Genitourinary: Reports incomplete emptying, Denies dysuria, Denies flank pain, Denies hematuria, Denies kidney stones - Integumentary Denies rash, Denies unusual bruising - Neurological Reports lack of coordination Past Medical History Past Medical History: Atrial Fibrillation, Atrial Flutter, Coronary Artery Disease (CAD), Cancer, Heart Failure, COPD, Hyperlipidemia, Hypertension, Liver Disease, Thyroid Disorder, Vascular Disorder Additional Past Medical History / Comment(s): hx Kidney Stones, Chronic N/T BILAT LEGS, WITH BLE EDEMA, states has had lymphedema with weeping valeria lower legs, degenerative arthritis, hx hepatitis C, hx cervical cancer, PVD Last Myocardial Infarction Date:: 2009 History of Any Multi-Drug Resistant Organisms: None Reported Past Surgical History: Appendectomy, Cholecystectomy, Heart Catheterization With Stent, Hysterectomy, Joint Replacement, Pacemaker Additional Past Surgical History / Comment(s): valeria lower ext vascular repairs,2-6-17 abd. aortogram, ERCP, 4 cardiac stents, left hip replacement Past Anesthesia/Blood Transfusion Reactions: Family History of Problems w/ Anesthesia Additional Past Anesthesia/Blood Transfusion Reaction / Comm: sister-long time to come out Date of Last Stent Placement:: 2010? Type of Cardiac Device: Permanent Pacemaker Device Placement Date:: 2014 Past Psychological History: No Psychological Hx Reported Smoking Status: Former smoker Past Alcohol Use History: None Reported Additional Past Alcohol Use History / Comment(s): Patient quit smoking in 2019. She smoked one pack per day for 70 years Past Drug Use History: None Reported - Past Family History Son(s) Family Medical History: Cancer Additional Family Medical History / Comment(s): Patient has 3 sons and one has been diagnosed with bladder cancer. Father Family Medical History: COPD (father at age of 89 from COPD/emphysema.) Additional Family Medical History / Comment(s): EMPHYSEMA. Father at age 89 from COPD. Mother Family Medical History: Chest Pain / Angina, Myocardial Infarction ([place]) (mother at age of 91 from myocardial infarction) Additional Family Medical History / Comment(s): Mother at age 91 from myocardial infarction. Brother(s) Family Medical History: Cancer Additional Family Medical History / Comment(s): Patient has 2 brothers and one was diagnosed with esophageal cancer with metastatic disease. Daughter(s) Family Medical History: Cancer (patient has 3 daughters one of them was diag nosed with leukemia.) Additional Family Medical History / Comment(s): Patient has 3 daughters and one diagnosed with leukemia. Medications and Allergies Home Medications Medication Instructions Recorded Confirmed Type Levothyroxine Sodium [Synthroid] 50 mcg PO DAILY 11/07/14 01/13/21 History Rosuvastatin [Crestor] 20 mg PO HS 10/09/16 01/13/21 History Rivaroxaban [Xarelto] 15 mg PO W/SUPPER tab 01/17/18 01/13/21 Rx Clopidogrel [Plavix] 75 tab PO DAILY 04/27/18 01/13/21 History Metoprolol Succinate (ER) [Toprol 50 mg PO BID 05/17/18 01/13/21 History XL] Famotidine [Pepcid] 20 mg PO HS 03/06/19 01/13/21 History Furosemide [Lasix] 40 mg PO DAILY 03/06/19 01/13/21 History Potassium Chloride ER [K-Dur 20] 20 meq PO DAILY 03/06/19 01/13/21 History HYDROcodone/APAP 7.5-325MG [[place] 1 tab PO Q8HR PRN 30 Days #45 tab 12/18/20 01/13/21 Rx 7.5-325] Allergies Allergy/AdvReac Type Severity Reaction Status Date / Time hydromorphone [From Dilaudid] AdvReac Nausea & Verified 01/13/21 08:36 Vomiting lorazepam [From Ativan] AdvReac Hallucinati Verified 01/13/21 08:36 ons Surgical - Exam Vital Signs Temp Pulse Resp BP Pulse Ox 97.5 F L 79 18 127/74 95 01/13/21 07:27 01/13/21 07:27 01/13/21 07:27 01/13/21 07:27 01/13/21 07:27 - General no distress, no pain - Eyes PERRL, normal ocular movement - ENT normal nares, normal mucosa - Respiratory normal expansion, normal respiratory effort - Abdomen Abdomen: soft, non tender - Psychiatric oriented to time, oriented to person, oriented to place Results - Labs 01/13/21 11:26 01/13/21 11:26 Assessment and Plan Assessment: 85-year-old female admitted following a fall. Urology is consulted for elevated PVR at 469 mL. Patient is asymptomatic from her Urinary retention . Has declined a Myrick catheter -UA -Check PVR if >300mL can perform CIC, if continue to have an elevated PVR despite multiple CIC, then recommend a Myrick catheter and keeping the Myrick in place for 1 week
--- NOTE | 2021-01-15 14:03 | P.PN ---
Progress Note - Text Progress Note Date: 01/15/21 no acute overnight events, indicated no voiding without issues. Denies any gross hematuria or dysuria. Her PVRs have been in the 100s to 200 mL range. Given the resolution of voiding issues, and normal PVR range can discontinue checking her PVR. advised to continue with timed voiding -Can F/U PRN
--- NOTE | 2021-01-15 14:09 | CDI ---
Documentation Clarification Form Date: 01/15/2021 01:47:50 PM From: Willa Pisano RN CCDS Admit Date: 01/13/2021 10:34:00 AM Patient Name: Rohini Hansen Visit Number: [id number] Discharge Date: ATTENTION: The Clinical Documentation Specialists (CDI) and [facility] Coding Staff appreciate your assistance in clarifying documentation. Please respond to the clarification below the line at the bottom and electronically sign. The CDI & [facility] Coding staff will review the response and follow-up if needed. Please note: Queries are made part of the Legal Health Record. If you have any questions, please contact the author of this message via ITS. Dr. Lei Wayne Your patient has the documented diagnosis of unspecified Heart Failure 01/14, H&P. Additional information regarding the type, acuity of Heart Failure is requested. History/Risk Factors: 85-year-old female presents to the ED after sustaining a fall and having severe left hip pain. Medical History: Atrial Fibrillation; CAD; HTN and Heart Failure. H&P 01/14. Clinical Indicators: VS/Pulse OX: 01/13 B/P 127/74; HR 79; Temp 97.5 Oral F Echocardiogram Results: 01/11/18 Left ventricular systolic function is normal with EF between 55-60%. Mild aortic valve sclerosis, Mitral valve leaflets are mildly thickened. Mild mitral annular calcification present. Moderate tricuspid regurgitation. Moderate pulmonary hypertension. Treatment: 01/13 Toprol XL 50mg PO BID SERGIO to current; 01/14 Lasix 40mg PO Daily SERGIO to current. In your professional opinion, can you please clarify the [acuity and type] of CHF if known? [ ] Chronic Diastolic Heart Failure (preserved EF) [ ] Other, please specify [ ] Unable to determine No response (Template Last Revised: July 2020 MTDD
[2021-01-15] MEDS: RIVAROXABAN 15 MG TAB PO SCH (17:25)
[2021-01-15] MEDS: ATORVASTATIN 40 MG TAB PO SCH (20:14)
[2021-01-15] MEDS: FAMOTIDINE 20 MG TAB PO SCH (20:14)
[2021-01-15] MEDS ORDERED: CEFDINIR 300 MG CAP PO SCH (21:00)
[2021-01-16] MEDS: HYDROcodone/APAP 7.5-325MG 1 EACH TAB PO PRN (01:28)
[2021-01-16] MEDS: LEVOTHYROXINE 50 MCG TAB PO SCH (06:17)
[2021-01-16 07:54] LABS: Basophils % (A) 0 %; Eosinophils # (A) 0.3 k/uL (0-0.7); Eosinophils % (A) 5 %; HGB 12.1 gm/dL (11.4-16.0); Hypochromasia Slight; Lymphocytes # (A) 1.8 k/uL (1.0-4.8); Lymphocytes % (A) 28 %; MCH 31.1 pg (25.0-35.0); MCHC 32.8 g/dL (31.0-37.0); MCV 94.9 fL (80.0-100.0); Monocytes # (A) 0.4 k/uL (0-1.0); Monocytes % (A) 6 %; Neutrophils # (A) 3.6 k/uL (1.3-7.7); Neutrophils % (A) 57 %; Platelet Count 191 k/uL (150-450); RDW 14.2 % (11.5-15.5); WBC 6.3 k/uL (3.8-10.6)
[2021-01-16] MEDS: FUROSEMIDE 40 MG TAB PO SCH (08:31)
[2021-01-16] MEDS: METOPROLOL SUCCINATE (ER) 50 MG TAB.ER.24H PO SCH ×2 (08:31→20:39)
[2021-01-16] MEDS: POTASSIUM CHLORIDE ER 20 MEQ TAB.ER PO SCH (08:31)
[2021-01-16] MEDS: TAMSULOSIN 0.4 MG CAP.ER.24H PO SCH (08:31)
[2021-01-16] MEDS: CEFDINIR 300 MG CAP PO SCH (08:31)
[2021-01-16] MEDS: CLOPIDOGREL 75 MG TAB PO SCH (08:31)
[2021-01-16 14:23] LABS: ALT <8 U/L (8-44); AST 16 U/L (13-35); African American GFR (CKD) 48.1 (60.0-200.0); Alkaline Phosphatase 70 U/L (41-126); BUN/Creat Ratio 19.17 Ratio (12.00-20.00); Calcium 8.9 mg/dL (8.7-10.3); Carbon Dioxide 31.1 mmol/L (21.6-31.8); Chloride 104 mmol/L (96-109); Globulin 2.9 g/dL (1.6-3.3); Glucose 106 mg/dL (70-110); Non-African American GFR(CKD) 41.5 (60.0-200.0); Potassium 4.2 mmol/L (3.5-5.5); Sodium 140 mmol/L (135-145); Total Protein 6.1 g/dL (6.2-8.2)
[2021-01-16] MEDS: RIVAROXABAN 15 MG TAB PO SCH (17:57)
--- NOTE | 2021-01-16 18:53 | P.PN ---
Subjective Progress Note Date: 01/16/21 Rohini Hansen, is an 85-year-old female who presented to [facility] emergency room after sustaining a fall and having severe pain in her hip The patient was evaluated in the emergency room vital examination on presentation revealed a temperature of 98.1 pulse 87 respirations 16 blood p ressure 107/69 pulse ox 93% on room air Laboratory data reveals a white blood count of 10.3 hemoglobin 14.2 platelet count 233 sodium 143 potassium 3.7 chloride 32 BUN 14 creatinine 1.13 glucose level [id number] Testing in the emergency room revealed computed tomography scan of the brain and the cervical spine revealed no intracranial or bleeding and no evidence for acute fracture or subluxation of the cervical spine, x-ray of the pelvis and hips revealed evidence of severe arthritis otherwise no evidence of acute fracture Patient was admitted to medical floor for further evaluation and treatment history of coronary artery disease with previous history of angioplasty and stent placement, history of cardiac arrhythmia with history of pacemaker placement, history of atrial fibrillation, history of hypertension, history of hyperlipidemia, history of kidney stones, history of osteoarthritis with left hip replacement Past medical history is significant for On review of systems On 01/15/2021 patient is alert and oriented 3. UA positive for urinary tract infection. Nursing staff unable to get IV patient refusing any further attempts we'll place patient on oral antibiotic and urine culture ordered. CT of hip ordered this a.m. with BX services have been consulted. Patient also having post void residual patient started on Flomax and urology service is consulted and this time patient denies chest pain or shortness breath. Patient nausea vomiting or diarrhea. Patient denies any urinary burning or frequency On 01/16/2021 Patient was seen and examined on the medical floor, he is alert and oriented x 3 in no distress, he denies any complaints there is no fever or chills no headache or dizziness no chest pain no shortness of breath no palpitation no cough no nausea or vomiting no abdominal pain no diarrhea no blood in the stools no burning with urination no frequency or urgency and no hematuria, there is no weakness or numbness in any of the extremities no change in vision speech or gait. Patient is still complaining of bilateral hip pain Objective - Vital Signs Vital signs: Vital Signs Temp 97.8 F 01/16/21 12:07 Pulse 72 01/16/21 12:07 Resp 18 01/16/21 12:07 BP 128/82 01/16/21 12:07 Pulse Ox 94 L 01/16/21 12:07 Intake & Output 01/15/21 01/16/21 01/16/21 18:59 06:59 18:59 Intake Total 240 780 Balance 240 780 Intake: Oral 240 780 Other: Voiding Method Bedside Commode Bedside Commode Bedside Commode Diaper Diaper Diaper # Voids 10 2 4 - Exam In general patient is alert and oriented x 3 in no distress HEENT head normocephalic and atraumatic Neck is supple no JVD no goiter no lymphadenopathy no carotid bruit Chest examination is clear to auscultation no crackles no wheezing Cardiac exam reveals regular heart sounds S1 and S2 no gallops no murmurs Abdomen is soft nontender no organomegaly with normal bowel sounds Extremity exam reveals no edema no cyanosis or clubbing Neurological examination reveals no gross focal deficits - Labs CBC & Chem 7: 01/16/21 07:19 01/16/21 07:19 Labs: Abnormal Lab Results - Last 24 Hours (Table) 01/16/21 Range/Units 07:19 Est GFR (CKD-EPI)AfAm 48.1 L (60.0-200.0) Est GFR (CKD-EPI)NonAf 41.5 L (60.0-200.0) ALT <8 L (8-44) U/L Total Protein 6.1 L (6.2-8.2) g/dL Albumin 3.20 L (3.80-4.90) g/dL Albumin/Globulin Ratio 1.10 L (1.60-3.17) g/dL Microbiology - Last 24 Hours (Table) 01/14/21 19:40 Urine Culture - Preliminary Urine,Voided Group D Enterococcus Aerococcus urinae Assessment and Plan Plan: Fall with bilateral hip pain no evidence of fracture on x-ray Physical debility physical therapy and occupational therapy consulted Underlying history of hypertension Underlying history of hyperlipidemia Underlying history of coronary artery disease with previous history of angioplasty and stent placement last myocardial infarction in 2009 Underlying history of cardiac arrhythmia status post pacemaker placement History of atrial fibrillation Urinary retention. Patient started on Flomax urology service is consulted Urinary tract infection. Patient started on antibiotic urine culture ordered At this time patient is admitted to medical floor He is still having severe pain in the left hip area and having difficulty ambulating Physical therapy and occupational therapy requested Will obtain computed tomography scan of the left hip and consult orthopedic surgery Social work service is consulted for possible ECF placement Will follow closely
[2021-01-16] MEDS: ATORVASTATIN 40 MG TAB PO SCH (20:38)
[2021-01-16] MEDS: FAMOTIDINE 20 MG TAB PO SCH (20:39)
[2021-01-17] MEDS: HYDROcodone/APAP 7.5-325MG 1 EACH TAB PO PRN ×2 (04:45→14:55)
[2021-01-17] MEDS: LEVOTHYROXINE 50 MCG TAB PO SCH (05:59)
[2021-01-17] MEDS: FUROSEMIDE 40 MG TAB PO SCH (08:46)
[2021-01-17] MEDS: CLOPIDOGREL 75 MG TAB PO SCH (08:46)
[2021-01-17] MEDS: METOPROLOL SUCCINATE (ER) 50 MG TAB.ER.24H PO SCH ×2 (08:46→21:09)
[2021-01-17] MEDS: CEFDINIR 300 MG CAP PO SCH (08:46)
[2021-01-17] MEDS: TAMSULOSIN 0.4 MG CAP.ER.24H PO SCH (08:46)
[2021-01-17] MEDS: POTASSIUM CHLORIDE ER 20 MEQ TAB.ER PO SCH (08:46)
--- NOTE | 2021-01-17 10:09 | P.DS ---
Providers Date of admission: 01/13/21 10:34 Expected date of discharge: 01/17/21 Attending physician: Lei Wayne Consults: 01/14/21 11:09 Consult Physician Routine Consulting Provider: Ismael Miles Consult Reason/Comments: retention/PVR 469 Do you want consulting provider notified?: Already Contacted 01/14/21 18:51 Consult Physician Routine Consulting Provider: Jonathan Coffey Consult Reason/Comments: Fall and physical debility Do you want consulting provider notified?: Yes Primary care physician: [facility] Course: Discharge diagnosis Fall with bilateral hip pain no evidence of fracture on x-ray Physical debility physical therapy and occupational therapy consulted Underlying history of hypertension Underlying history of hyperlipidemia Underlying history of coronary artery disease with previous history of angioplasty and stent placement last myocardial infarction in 2009 Underlying history of cardiac arrhythmia status post pacemaker placement History of atrial fibrillation Urinary retention. Patient started on Flomax urology service is consulted Urinary tract infection. Patient started on antibiotic urine culture ordered Hospital course Rohini Hansen, is an 85-year-old female who presented to [facility] emergency room after sustaining a fall and having severe pain in her hip The patient was evaluated in the emergency room vital examination on presentation revealed a temperature of 98.1 pulse 87 respirations 16 blood pressure 107/69 pulse ox 93% on room air Laboratory data reveals a white blood count of 10.3 hemoglobin 14.2 platelet count 233 sodium 143 potassium 3.7 chloride 32 BUN 14 creatinine 1.13 glucose level CXXXVII Testing in the emergency room revealed computed tomography scan of the brain and the cervical spine revealed no intracranial or bleeding and no evidence for acute fracture or subluxation of the cervical spine, x-ray of the pelvis and hips revealed evidence of severe arthritis otherwise no evidence of acute fracture Patient was admitted to medical floor for further evaluation and treatment history of coronary artery disease with previous history of angioplasty and stent placement, history of cardiac arrhythmia with history of pacemaker placement, history of atrial fibrillation, history of hypertension, history of hyperlipidemia, history of kidney stones, history of osteoarthritis with left hip replacement Past medical history is significant for On review of systems On 01/15/2021 patient is alert and oriented 3. UA positive for urinary tract infection. Nursing staff unable to get IV patient refusing any further attempts we'll place patient on oral antibiotic and urine culture ordered. CT of hip ordered this a.m. with BX services have been consulted. Patient also having post void residual patient started on Flomax and urology service is consulted and this time patient denies chest pain or shortness breath. Patient nausea vomiting or diarrhea. Patient denies any urinary burning or frequency On 01/16/2021 Patient was seen and examined on the medical floor, he is alert and oriented x 3 in no distress, he denies any complaints there is no fever or chills no headache or dizziness no chest pain no shortness of breath no palpitation no cough no nausea or vomiting no abdominal pain no diarrhea no blood in the stools no burning with urination no frequency or urgency and no hematuria, there is no weakness or numbness in any of the extremities no change in vision speech or gait. Patient is still complaining of bilateral hip pain On 01/17/2021 patient was evaluated by orthopedic services. Per orthopedic services no immediate surgical intervention is planned would recommend continued conservative measures, recommendation of short-term corticosteroids. Patient will be DC'd on prednisone due to ongoing discomfort. Patient was also evaluated by urology services no further workup inpatient. Post void residuals have improved. Patient will be DC'd on Omnicef for 7 more days for urinary tract infection. Final urine culture pending. Patient will be DC'd home with [facility] care. At this time patient denies chest pain or shortness of breath. Patient denies nausea vomiting or diarrhea. Patient denies any urinary burning or frequency Patient Condition at Discharge: Stable Plan - Discharge Summary New Discharge Prescriptions: New RX: Tamsulosin [Flomax] 0.4 mg PO PC-BRKFST 30 Days #30 cap.er.24h RX: Cefdinir [Omnicef] 300 mg PO DAILY 7 Days #7 cap RX: predniSONE 10 mg PO DIRECTED 12 Days #15 tab Continue RX: Levothyroxine Sodium [Synthroid] 50 mcg PO DAILY RX: Rosuvastatin [Crestor] 20 mg PO HS RX: Rivaroxaban [Xarelto] 15 mg PO W/SUPPER tab RX: Clopidogrel [Plavix] 75 tab PO DAILY RX: Metoprolol Succinate (ER) [Toprol XL] 50 mg PO BID RX: Famotidine [Pepcid] 20 mg PO HS RX: Furosemide [Lasix] 40 mg PO DAILY RX: Potassium Chloride ER [K-Dur 20] 20 meq PO DAILY RX: HYDROcodone/APAP 7.5-325MG [[place] 7.5-325] 1 tab PO Q8HR PRN 30 Days #45 tab PRN Reason: Pain Discharge Medication List RX: Levothyroxine Sodium [Synthroid] 50 mcg PO DAILY 11/07/14 [History] RX: Rosuvastatin [Crestor] 20 mg PO HS 10/09/16 [History] RX: Rivaroxaban [Xarelto] 15 mg PO W/SUPPER tab 01/17/18 [Rx] RX: Clopidogrel [Plavix] 75 tab PO DAILY 04/27/18 [History] RX: Metoprolol Succinate (ER) [Toprol XL] 50 mg PO BID 05/17/18 [History] RX: Famotidine [Pepcid] 20 mg PO HS 03/06/19 [History] RX: Furosemide [Lasix] 40 mg PO DAILY 03/06/19 [History] RX: Potassium Chloride ER [K-Dur 20] 20 meq PO DAILY 03/06/19 [History] RX: HYDROcodone/APAP 7.5-325MG [[place] 7.5-325] 1 tab PO Q8HR PRN 30 Days #45 tab 12/18/20 [Rx] RX: Cefdinir [Omnicef] 300 mg PO DAILY 7 Days #7 cap 01/17/21 [Rx] RX: Tamsulosin [Flomax] 0.4 mg PO PC-BRKFST 30 Days #30 cap.er.24h 01/17/21 [Rx] RX: predniSONE 10 mg PO DIRECTED 12 Days #15 tab 01/17/21 [Rx] Follow up Appointment(s)/Referral(s): [facility], [NON-STAFF] - 1 Week Bertram Kirkpatrick MD [REFERRING] - 1-2 days
[2021-01-17] MEDS: RIVAROXABAN 15 MG TAB PO SCH (18:01)
[2021-01-17] MEDS: ATORVASTATIN 40 MG TAB PO SCH (21:09)
[2021-01-17] MEDS: FAMOTIDINE 20 MG TAB PO SCH (21:09)
[2021-01-18] MEDS: LEVOTHYROXINE 50 MCG TAB PO SCH (05:26)
[2021-01-18] MEDS: HYDROcodone/APAP 7.5-325MG 1 EACH TAB PO PRN ×2 (08:36→22:06)
[2021-01-18] MEDS: METOPROLOL SUCCINATE (ER) 50 MG TAB.ER.24H PO SCH ×2 (08:37→20:35)
[2021-01-18] MEDS: FUROSEMIDE 40 MG TAB PO SCH (08:37)
[2021-01-18] MEDS: CEFDINIR 300 MG CAP PO SCH (08:37)
[2021-01-18] MEDS: TAMSULOSIN 0.4 MG CAP.ER.24H PO SCH (08:37)
[2021-01-18] MEDS: CLOPIDOGREL 75 MG TAB PO SCH (08:37)
[2021-01-18] MEDS: POTASSIUM CHLORIDE ER 20 MEQ TAB.ER PO SCH (08:37)
--- NOTE | 2021-01-18 12:31 | P.PN ---
Subjective Progress Note Date: 01/18/21 Rohini Hansen, is an 85-year-old female who presented to [facility] emergency room after sustaining a fall and having severe pain in her hip The patient was evaluated in the emergency room vital examination on presentation revealed a temperature of 98.1 pulse 87 respirations 16 blood p ressure 107/69 pulse ox 93% on room air Laboratory data reveals a white blood count of 10.3 hemoglobin 14.2 platelet count 233 sodium 143 potassium 3.7 chloride 32 BUN 14 creatinine 1.13 glucose level CXXXVII Testing in the emergency room revealed computed tomography scan of the brain and the cervical spine revealed no intracranial or bleeding and no evidence for acute fracture or subluxation of the cervical spine, x-ray of the pelvis and hips revealed evidence of severe arthritis otherwise no evidence of acute fracture Patient was admitted to medical floor for further evaluation and treatment history of coronary artery disease with previous history of angioplasty and stent placement, history of cardiac arrhythmia with history of pacemaker placement, history of atrial fibrillation, history of hypertension, history of hyperlipidemia, history of kidney stones, history of osteoarthritis with left hip replacement Past medical history is significant for On review of systems On 01/15/2021 patient is alert and oriented 3. UA positive for urinary tract infection. Nursing staff unable to get IV patient refusing any further attempts we'll place patient on oral antibiotic and urine culture ordered. CT of hip ordered this a.m. with BX services have been consulted. Patient also having post void residual patient started on Flomax and urology service is consulted and this time patient denies chest pain or shortness breath. Patient nausea vomiting or diarrhea. Patient denies any urinary burning or frequency On 01/16/2021 Patient was seen and examined on the medical floor, he is alert and oriented x 3 in no distress, he denies any complaints there is no fever or chills no headache or dizziness no chest pain no shortness of breath no palpitation no cough no nausea or vomiting no abdominal pain no diarrhea no blood in the stools no burning with urination no frequency or urgency and no hematuria, there is no weakness or numbness in any of the extremities no change in vision speech or gait. Patient is still complaining of bilateral hip pain On 01/18/2021 Patient was seen and examined on the medical floor, she is alert and oriented x 3 in no distress, she is complaining of generalized weakness and complaining of severe hip pain otherwise she denies any complaints there is no fever or chills no headache or dizziness no chest pain no shortness of breath no palpitation no cough no nausea or vomiting no abdominal pain no diarrhea no blood in the stools no burning with urination no frequency or urgency and no hematuria, there is no weakness or numbness in any of the extremities no change in vision speech or gait. Urine culture is positive for Enterococcus faecalis VRE and Aerococcus Urinae, there is multiple drug resistance, at this time will hold off discharge and consult infectious disease. Objective - Vital Signs Vital signs: Vital Signs Temp 98.0 F 01/18/21 11:18 Pulse 76 01/18/21 11:18 Resp 16 01/18/21 11:18 BP 104/68 01/18/21 11:18 Pulse Ox 94 L 01/18/21 11:18 Intake & Output 01/17/21 01/18/21 01/18/21 18:59 06:59 18:59 Intake Total 480 Balance 480 Intake: Oral 480 Other: Voiding Method Bedside Commode Bedside Commode Bedside Commode Diaper Diaper Diaper # Voids 6 2 # Bowel Movements 1 - Exam In general patient is alert and oriented x 3 in no distress HEENT head normocephalic and atraumatic Neck is supple no JVD no goiter no lymphadenopathy no carotid bruit Chest examination is clear to auscultation no crackles no wheezing Cardiac exam reveals regular heart sounds S1 and S2 no gallops no murmurs Abdomen is soft nontender no organomegaly with normal bowel sounds Extremity exam reveals no edema no cyanosis or clubbing Neurological examination reveals no gross focal deficits - Labs CBC & Chem 7: 01/16/21 07:19 01/16/21 07:19 Labs: Microbiology - Last 24 Hours (Table) 01/14/21 19:40 Urine Culture - Final Urine,Voided Enterococcus faecalis VRE Aerococcus urinae Assessment and Plan Plan: Fall with bilateral hip pain no evidence of fracture on x-ray Physical debility physical therapy and occupational therapy consulted Underlying history of hypertension Underlying history of hyperlipidemia Underlying history of coronary artery disease with previous history of angioplasty and stent placement last myocardial infarction in 2009 Underlying history of cardiac arrhythmia status post pacemaker placement History of atrial fibrillation Urinary retention. Patient started on Flomax urology service is consulted Urinary tract infection. Patient started on antibiotic urine culture ordered Physical debility patient is room confined a prescription for hospital bed and commode was provided for the time of discharge to home, patient does not want to go to any rehab facility At this time patient is admitted to medical floor He is still having severe pain in the left hip area and having difficulty ambulating Physical therapy and occupational therapy requested Will obtain computed tomography scan of the left hip and consult orthopedic surgery Patient is refusing to go to any rehab facility At this time I am waiting for opinion of infectious disease in regard to urinary tract infection with enterococcus faecalis VRE Possible discharge to home in the next 1-2 days
[2021-01-18] MEDS: DAPTOmycin 350 MG in SODIUM CHLORIDE 0.9% 50 ML IVPB SCH (14:40)
[2021-01-18] MEDS: RIVAROXABAN 15 MG TAB PO SCH (17:05)
[2021-01-18 18:07] LABS: Amorphous Sediment,Urine Rare /hpf; Appearance,Urine Cloudy (Clear); Bacteria,Urine Occasional /hpf; Bilirubin,Urine Negative (Negative); Blood,Urine Trace (Negative); Color,Urine Yellow; Glucose,Urine (UA) Negative (Negative); Ketones,Urine Negative (Negative); Leukocyte Esterase,Urine Large (Negative); Nitrite,Urine Negative (Negative); Protein,Urine Negative (Negative); RBC,Urine 1 /hpf (0-5); Squamous Epithelial Cell,Urine 1 /hpf (0-4); Urobilinogen,Urine <2.0 mg/dL (<2.0); WBC,Urine >182 /hpf (0-5)
[2021-01-18] MEDS: FAMOTIDINE 20 MG TAB PO SCH (20:35)
--- NOTE | 2021-01-18 21:54 | P.CONS ---
History of Present Illness - Reason for Consult Consult date: 01/18/21 VRE UTI Requesting physician: Lei Wayne - Chief Complaint weakness and fall x few days - History of Present Illness History of present illness : Patient is 85-year female who was brought into the hospital 5 days ago on 01/13/2021 after the patient did have a fall backwards patient was complaining of some pain to the mid neck area and bilateral hip patient did not have any loss of consciousness no fever no chills patient on presentation to the hospital was afebrile and no fever has been recorded subsequently patient did have a positive UA however white count was normal with mild left shift creatinine was mildly elevated liver enzymes are normal abdul PCR was negative patient did have a head CT and has been evaluated by urology and orthopedic surgery she was treated with oral antibiotic therapy with a urine culture finalized with the VRE Enterococcus urinary infection he was consulted for further management of antibiotic therapy patient denies having any fever or any chills, but denies having any chest pain no shortness of the cough no nausea no vomiting no abdominal pain and no diarrhea Review of system: CONSTITUTIONAL: Positive for weakness denies fever. EYES: No complaint. ENT: No complaint. RESPIRATORY: No complaint. CARDIOVASCULAR: No complaint. GENITOURINARY: As per history of present illness GASTROINTESTINAL: No complaint. MUSCULOSKELETAL: As per history present illness. INTEGUMENTARY: No complaint. PSYCHOLOGIC: No complaint. ENDOCRINE: No complaint. NEUROLOGIC: No complaint. Past medical history : Reviewed, documented below Past surgical history : Reviewed, documented below Social history: Reviewed, documented below Medications: Reviewed, as documented below GENERAL DESCRIPTION: Elderly female lying in bed, no distress. No tachypnea or accessory muscle of respiration use. HEENT: Shows Pallor , no scleral icterus. Oral mucous membrane is dry. NECK: Trachea central, no thyromegaly. LUNGS: Unlabored breathing. Clear to auscultation anteriorly. No wheeze or crackle. HEART: S1, S2, regular rate and rhythm. ABDOMEN: Soft, no tenderness , guarding or rigidity EXTREMITIES: No edema of feet. SKIN: No rash, no masses palpable. NEUROLOGICAL: The patient is awake, alert, oriented x3, mood and affect normal. LABS AND RADIOLOGY: Reviewed results see below Assessment : Patient presented to hospital after the patient did have a fall with pain to the bilateral hip area and weakness in this patient did not have a ny fever or elevated white count patient did have a positive UA however do not have significant urinary symptoms concern for possible asymptomatic bacteriuria versus mild cystitis Plan: 1-we will obtain repeat clean-catch urine sample for UA and culture 2-start the patient on daptomycin 4 mg/kg daily while waiting for repeat urine to be finalized 3-gentle IV fluid We will follow on clinical condition and cultures to further adjust medication if needed Thank you for this consultation we will follow the patient along with you Past Medical History Past Medical History: Atrial Fibrillation, Atrial Flutter, Coronary Artery Disease (CAD), Cancer, Heart Failure, COPD, Hyperlipidemia, Hypertension, Liver Disease, Thyroid Disorder, Vascular Disorder Additional Past Medical History / Comment(s): hx Kidney Stones, Chronic N/T MOHSEN AT LEGS, WITH BLE EDEMA, states has had lymphedema with weeping mohsen lower legs, degenerative arthritis, hx hepatitis C, hx cervical cancer, PVD Last Myocardial Infarction Date:: 2009 History of Any Multi-Drug Resistant Organisms: None Reported Past Surgical History: Appendectomy, Cholecystectomy, Heart Catheterization With Stent, Hysterectomy, Joint Replacement, Pacemaker Additional Past Surgical History / Comment(s): mohsen lower ext vascular repairs,2-6-17 abd. aortogram, ERCP, 4 cardiac stents, left hip replacement Past Anesthesia/Blood Transfusion Reactions: Family History of Problems w/ Anesthesia Additional Past Anesthesia/Blood Transfusion Reaction / Comm: sister-long time to come out Date of Last Stent Placement:: 2010? Type of Cardiac Device: Permanent Pacemaker Device Placement Date:: 2014 Past Psychological History: No Psychological Hx Reported Smoking Status: Former smoker Past Alcohol Use History: None Reported Additional Past Alcohol Use History / Comment(s): Patient quit smoking in 2019. She smoked one pack per day for 70 years Past Drug Use History: None Reported - Past Family History Son(s) Family Medical History: Cancer Additional Family Medical History / Comment(s): Patient has 3 sons and one has been diagnosed with bladder cancer. Father Family Medical History: COPD (father at age of 89 from COPD/emphysema.) Additional Family Medical History / Comment(s): EMPHYSEMA. Father at age 89 from COPD. Mother Family Medical History: Chest Pain / Angina, Myocardial Infarction ([place]) (mother at age of 91 from myocardial infarction) Additional Family Medical History / Comment(s): Mother at age 91 from selena cardial infarction. Brother(s) Family Medical History: Cancer Additional Family Medical History / Comment(s): Patient has 2 brothers and one was diagnosed with esophageal cancer with metastatic disease. Daughter(s) Family Medical History: Cancer (patient has 3 daughters one of them was diagnosed with leukemia.) Additional Family Medical History / Comment(s): Patient has 3 daughters and one diagnosed with leukemia. Medications and Allergies Home Medications Medication Instructions Recorded Confirmed Type Levothyroxine Sodium [Synthroid] 50 mcg PO DAILY 11/07/14 01/13/21 History Rosuvastatin [Crestor] 20 mg PO HS 10/09/16 01/13/21 History Rivaroxaban [Xarelto] 15 mg PO W/SUPPER tab 01/17/18 01/13/21 Rx Clopidogrel [Plavix] 75 tab PO DAILY 04/27/18 01/13/21 History Metoprolol Succinate (ER) [Toprol 50 mg PO BID 05/17/18 01/13/21 History XL] Famotidine [Pepcid] 20 mg PO HS 03/06/19 01/13/21 History Furosemide [Lasix] 40 mg PO DAILY 03/06/19 01/13/21 History Potassium Chloride ER [K-Dur 20] 20 meq PO DAILY 03/06/19 01/13/21 History HYDROcodone/APAP 7.5-325MG [[place] 1 tab PO Q8HR PRN 30 Days #45 tab 12/18/20 01/13/21 Rx 7.5-325] Cefdinir [Omnicef] 300 mg PO DAILY 7 Days #7 cap 01/17/21 Rx Tamsulosin [Flomax] 0.4 mg PO PC-BRKFST 30 Days #30 01/17/21 Rx cap.er.24h predniSONE 10 mg PO DIRECTED 12 Days #15 01/17/21 Rx tab Allergies Allergy/AdvReac Type Severity Reaction Status Date / Time hydromorphone [From Dilaudid] AdvReac Nausea & Verified 01/13/21 08:36 Vomiting lorazepam [From Ativan] AdvReac Hallucinati Verified 01/13/21 08:36 ons Physical Exam Vitals: Vital Signs Temp Pulse Resp BP Pulse Ox 01/18/21 11:18 98.0 F 76 16 104/68 94 L 01/18/21 09:04 88 L 01/18/21 05:23 97.8 F 77 18 112/70 96 01/17/21 20:12 97.1 F L 56 L 16 126/66 96 Intake and Output 01/17/21 01/18/21 01/18/21 22:59 06:59 14:59 Other: Voiding Method Bedside Commode Bedside Commode Diaper Diaper # Voids 6 2 # Bowel Movements 1 Results CBC & Chem 7: 01/16/21 07:19 01/16/21 07:19 Labs: Microbiology - Last 24 Hours (Table) 01/14/21 19:40 Urine Culture - Final Urine,Voided Enterococcus faecalis VRE Aerococcus urinae
[2021-01-19] MEDS: HYDROcodone/APAP 7.5-325MG 1 EACH TAB PO PRN (04:44)
[2021-01-19] MEDS: LEVOTHYROXINE 50 MCG TAB PO SCH (05:38)
[2021-01-19] MEDS: CLOPIDOGREL 75 MG TAB PO SCH (08:42)
[2021-01-19] MEDS: FUROSEMIDE 40 MG TAB PO SCH (08:42)
[2021-01-19] MEDS: POTASSIUM CHLORIDE ER 20 MEQ TAB.ER PO SCH (08:42)
[2021-01-19] MEDS: TAMSULOSIN 0.4 MG CAP.ER.24H PO SCH (08:42)
[2021-01-19] MEDS: METOPROLOL SUCCINATE (ER) 50 MG TAB.ER.24H PO SCH ×3 (08:42→20:07)
--- NOTE | 2021-01-19 10:11 | P.PN ---
Subjective Progress Note Date: 01/19/21 Rohini Hansen, is an 85-year-old female who presented to [facility] emergency room after sustaining a fall and having severe pain in her hip The patient was evaluated in the emergency room vital examination on presentation revealed a temperature of 98.1 pulse 87 respirations 16 blood p ressure 107/69 pulse ox 93% on room air Laboratory data reveals a white blood count of 10.3 hemoglobin 14.2 platelet count 233 sodium 143 potassium 3.7 chloride 32 BUN 14 creatinine 1.13 glucose level [id number] Testing in the emergency room revealed computed tomography scan of the brain and the cervical spine revealed no intracranial or bleeding and no evidence for acute fracture or subluxation of the cervical spine, x-ray of the pelvis and hips revealed evidence of severe arthritis otherwise no evidence of acute fracture Patient was admitted to medical floor for further evaluation and treatment history of coronary artery disease with previous history of angioplasty and stent placement, history of cardiac arrhythmia with history of pacemaker placement, history of atrial fibrillation, history of hypertension, history of hyperlipidemia, history of kidney stones, history of osteoarthritis with left hip replacement Past medical history is significant for On review of systems On 01/15/2021 patient is alert and oriented 3. UA positive for urinary tract infection. Nursing staff unable to get IV patient refusing any further attempts we'll place patient on oral antibiotic and urine culture ordered. CT of hip ordered this a.m. with BX services have been consulted. Patient also having post void residual patient started on Flomax and urology service is consulted and this time patient denies chest pain or shortness breath. Patient nausea vomiting or diarrhea. Patient denies any urinary burning or frequency On 01/16/2021 Patient was seen and examined on the medical floor, he is alert and oriented x 3 in no distress, he denies any complaints there is no fever or chills no headache or dizziness no chest pain no shortness of breath no palpitation no cough no nausea or vomiting no abdominal pain no diarrhea no blood in the stools no burning with urination no frequency or urgency and no hematuria, there is no weakness or numbness in any of the extremities no change in vision speech or gait. Patient is still complaining of bilateral hip pain On 01/18/2021 Patient was seen and examined on the medical floor, she is alert and oriented x 3 in no distress, she is complaining of generalized weakness and complaining of severe hip pain otherwise she denies any complaints there is no fever or chills no headache or dizziness no chest pain no shortness of breath no palpitation no cough no nausea or vomiting no abdominal pain no diarrhea no blood in the stools no burning with urination no frequency or urgency and no hematuria, there is no weakness or numbness in any of the extremities no change in vision speech or gait. Urine culture is positive for Enterococcus faecalis VRE and Aerococcus Urinae, there is multiple drug resistance, at this time will hold off discharge and consult infectious disease. On 01/19/2021 patient alert and oriented 3. Patient has been started on daptomycin per infectious disease. This time patient denies chest pain or shortness of breath. Patient denies nausea vomiting or diarrhea. Patient denies any urinary burning or frequency. Repeat UA and urine culture ordered per ID Objective - Vital Signs Vital signs: Vital Signs Temp 97.7 F 01/19/21 04:41 Pulse 61 01/19/21 04:41 Resp 18 01/19/21 04:41 BP 98/66 01/19/21 04:41 Pulse Ox 96 01/19/21 04:41 Intake & Output 01/18/21 01/19/21 01/19/21 18:59 06:59 18:59 Intake Total 50 200 Balance 50 200 Intake: Intake, IV Titration 50 Amount DAPTOmycin 350 mg In 50 Sodium Chloride 0.9% 50 ml @ 100 mls/hr IVPB Q24HR@1200 SERGIO Rx#: [id number] Oral 200 Other: Voiding Method Bedside Commode Bedside Commode Diaper Diaper # Voids 3 2 1 - Exam In general patient is alert and oriented x 3 in no distress HEENT head normocephalic and atraumatic Neck is supple no JVD no goiter no lymphadenopathy no carotid bruit Chest examination is clear to auscultation no crackles no wheezing Cardiac exam reveals regular heart sounds S1 and S2 no gallops no murmurs Abdomen is soft nontender no organomegaly with normal bowel sounds Extremity exam reveals no edema no cyanosis or clubbing Neurological examination reveals no gross focal deficits - Labs CBC & Chem 7: 01/16/21 07:19 01/16/21 07:19 Labs: Abnormal Lab Results - Last 24 Hours (Table) 01/18/21 Range/Units 17:30 Urine Appearance Cloudy H (Clear) Urine Blood Trace H (Negative) Ur Leukocyte Esterase Large H (Negative) Urine WBC >182 H (0-5) /hpf Urine WBC Clumps Rare H (None) /hpf Amorphous Sediment Rare H (None) /hpf Urine Bacteria Occasional H (None) /hpf Assessment and Plan Plan: Fall with bilateral hip pain no evidence of fracture on x-ray Physical debility physical therapy and occupational therapy consulted Urinary tract infection positive for VRE. Patient has been started on daptomycin per infectious disease repeat UA and urine culture ordered Underlying history of hypertension Underlying history of hyperlipidemia Underlying history of coronary artery disease with previous history of angioplasty and stent placement last myocardial infarction in 2009 Underlying history of cardiac arrhythmia status post pacemaker placement History of atrial fibrillation Urinary retention. Patient started on Flomax urology service is consulted Physical debility patient is room confined a prescription for hospital bed and commode was provided for the time of discharge to home, patient does not want to go to any rehab facility At this time patient is admitted to medical floor Patient started on daptomycin per infectious disease Repeat UA and urine culture ordered Patient was evaluated by orthopedic services no surgical intervention at this time Possible discharge to home in the next 1-2 days
[2021-01-19 11:52] VITALS: RESP 16
[2021-01-19] MEDS: DAPTOmycin 350 MG in SODIUM CHLORIDE 0.9% 50 ML IVPB SCH (13:22)
[2021-01-19] MEDS: RIVAROXABAN 15 MG TAB PO SCH (17:25)
--- NOTE | 2021-01-19 17:32 | PN ---
PROGRESS NOTE DATE OF SERVICE: 01/19/2021 REASON FOR FOLLOWUP: VRE urinary tract infection. INTERVAL HISTORY: Patient is afebrile. The patient is currently breathing comfortably. No chest pain. No shortness of breath or cough. No abdominal pain or diarrhea. PHYSICAL EXAMINATION: Blood pressure 107/69 with a pulse of 98, temperature 97.8. She is 96% on room air. General description is an elderly female lying in bed in no distress. Respiratory system: Unlabored breathing, clear to auscultation anteriorly. Heart S1, S2. Regular rate and rhythm. Abdomen soft, no tenderness. LABS: Repeat urine was still positive. DIAGNOSTIC IMPRESSION AND PLAN: Patient with Enterococcus faecalis VRE, Enterococcus urinary urinary tract infection, possible cystitis. She received 2 doses of Dapto, another dose tomorrow, should be more than enough and there will be no need for antibiotic on discharge. Continue supportive care. MMODL / IJN: [id number] /
[2021-01-19] MEDS: FAMOTIDINE 20 MG TAB PO SCH (20:07)
[2021-01-20] MEDS: HYDROcodone/APAP 7.5-325MG 1 EACH TAB PO PRN (00:40)
[2021-01-20] MEDS: LEVOTHYROXINE 50 MCG TAB PO SCH (05:40)
[2021-01-20 06:03] LABS: HCT 38.2 % (34.0-46.0); Hypochromasia Slight; MCH 30.1 pg (25.0-35.0); MCHC 31.5 g/dL (31.0-37.0); MCV 95.5 fL (80.0-100.0); Mean Platelet Volume 7.9; Platelet Count 209 k/uL (150-450); RDW 14.4 % (11.5-15.5); WBC 5.6 k/uL (3.8-10.6)
[2021-01-20 06:24] LABS: Band Neutrophils % 2 %; Eosinophils # (M) 0.45 k/uL (0-0.7); Monocytes # (M) 0.73 k/uL (0-1.0); Neutrophils % (M) 43 %; Nucleated Red Blood Cells 0 /100 WBC (0-0); Total Cells Counted 100
[2021-01-20] MEDS: FUROSEMIDE 40 MG TAB PO SCH (09:02)
[2021-01-20] MEDS: METOPROLOL SUCCINATE (ER) 50 MG TAB.ER.24H PO SCH (09:02)
[2021-01-20] MEDS: TAMSULOSIN 0.4 MG CAP.ER.24H PO SCH (09:02)
[2021-01-20] MEDS: CLOPIDOGREL 75 MG TAB PO SCH (09:02)
[2021-01-20] MEDS: POTASSIUM CHLORIDE ER 20 MEQ TAB.ER PO SCH (09:02)
[2021-01-20 11:50] VITALS: BP 110/67; PULSE 83; TEMP 98
[2021-01-20 12:35] LABS: African American GFR (CKD) 43.6 (60.0-200.0); Albumin 3.1 g/dL (3.80-4.90); Albumin/Globulin Ratio 1.03 (1.60-3.17); Anion Gap 6.5 mmol/L (4.00-12.00); BUN/Creat Ratio 17.69 Ratio (12.00-20.00); Calcium 8.8 mg/dL (8.7-10.3); Carbon Dioxide 28.5 mmol/L (21.6-31.8); Non-African American GFR(CKD) 37.6 (60.0-200.0); Potassium 4.6 mmol/L (3.5-5.5); Total Bilirubin 0.5 mg/dL (0.3-1.2); Total Protein 6.1 g/dL (6.2-8.2)
--- NOTE | 2021-01-20 13:10 | P.DS ---
Providers Date of admission: 01/13/21 10:34 Expected date of discharge: 01/20/21 Attending physician: Lei Wayne Consults: 01/14/21 11:09 Consult Physician Routine Consulting Provider: Ismael Miles Consult Reason/Comments: retention/PVR 469 Do you want consulting provider notified?: Already Contacted 01/14/21 18:51 Consult Physician Routine Consulting Provider: Jonathan Coffey Consult Reason/Comments: Fall and physical debility Do you want consulting provider notified?: Yes 01/18/21 12:25 Consult Physician Routine Consulting Provider: Soheila Calvert Consult Reason/Comments: UTI Do you want consulting provider notified?: Yes [facility] care [facility] Course: Diagnosis on discharge: Fall with bilateral hip pain no evidence of fracture on x-ray Physical debility physical therapy and occupational therapy consulted Urinary tract infection positive for VRE. Patient has been started on daptomycin per infectious disease repeat UA and urine culture ordered Underlying history of hypertension Underlying history of hyperlipidemia Underlying history of coronary artery disease with previous history of angio plasty and stent placement last myocardial infarction in 2009 Underlying history of cardiac arrhythmia status post pacemaker placement History of atrial fibrillation Urinary retention. Patient started on Flomax urology service is consulted Physical debility patient will be discharged to [facility] for rehabilitation Hospital course: Rohini Hansen, is an 85-year-old female who presented to [facility] emergency room after sustaining a fall and having severe pain in her hip The patient was evaluated in the emergency room vital examination on presentation revealed a temperature of 98.1 pulse 87 respirations 16 blood pressure 107/69 pulse ox 93% on room air Laboratory data reveals a white blood count of 10.3 hemoglobin 14.2 platelet c ount 233 sodium 143 potassium 3.7 chloride 32 BUN 14 creatinine 1.13 glucose level CXXXVII Testing in the emergency room revealed computed tomography scan of the brain and the cervical spine revealed no intracranial or bleeding and no evidence for acute fracture or subluxation of the cervical spine, x-ray of the pelvis and hips revealed evidence of severe arthritis otherwise no evidence of acute f racture Patient was admitted to medical floor for further evaluation and treatment history of coronary artery disease with previous history of angioplasty and stent placement, history of cardiac arrhythmia with history of pacemaker placement, history of atrial fibrillation, history of hypertension, history of hyperlipidemia, history of kidney stones, history of osteoarthritis with left hip replacement Past medical history is significant for On 01/15/2021 patient is alert and oriented 3. UA positive for urinary tract infection. Nursing staff unable to get IV patient refusing any further attempts we'll place patient on oral antibiotic and urine culture ordered. CT of hip ordered this a.m. with BX services have been consulted. Patient also having post void residual patient started on Flomax and urology service is consulted and this time patient denies chest pain or shortness breath. Patient nausea vomiting or diarrhea. Patient denies any urinary burning or frequency On 01/16/2021 Patient was seen and examined on the medical floor, he is alert and oriented x 3 in no distress, he denies any complaints there is no fever or chills no headache or dizziness no chest pain no shortness of breath no palpitation no cough no nausea or vomiting no abdominal pain no diarrhea no blood in the stools no burning with urination no frequency or urgency and no hematuria, there is no weakness or numbness in any of the extremities no change in vision speech or gait. Patient is still complaining of bilateral hip pain On 01/18/2021 Patient was seen and examined on the medical floor, she is alert and oriented x 3 in no distress, she is complaining of generalized weakness and complaining of severe hip pain otherwise she denies any complaints there is no fever or chills no headache or dizziness no chest pain no shortness of breath no palpitation no cough no nausea or vomiting no abdominal pain no diarrhea no blood in the stools no burning with urination no frequency or urgency and no hematuria, there is no weakness or numbness in any of the extremities no change in vision speech or gait. Urine culture is positive for Enterococcus faecalis VRE and Aerococcus Urinae, there is multiple drug resistance, at this time will hold off discharge and consult infectious disease. On 01/19/2021 patient alert and oriented 3. Patient has been started on daptomycin per infectious disease. This time patient denies chest pain or shortness of breath. Patient denies nausea vomiting or diarrhea. Patient denies any urinary burning or frequency. Repeat UA and urine culture ordered per ID On 01/20/2021 patient was seen and examined on the medical floor she is alert and oriented 3 in no apparent distress input from infectious disease reviewed patient received 3 days of IV daptomycin and infectious disease recommending no further antibiotic at the time of discharge. Patient will be discharged to [facility] for rehabilitation. Patient Condition at Discharge: Stable Plan - Discharge Summary New Discharge Prescriptions: New Tamsulosin [Flomax] 0.4 mg PO PC-BRKFST 30 Days #30 cap.er.24h predniSONE 10 mg PO DIRECTED 12 Days #15 tab Continue Levothyroxine Sodium [Synthroid] 50 mcg PO DAILY Rosuvastatin [Crestor] 20 mg PO HS Rivaroxaban [Xarelto] 15 mg PO W/SUPPER tab Clopidogrel [Plavix] 75 tab PO DAILY Metoprolol Succinate (ER) [Toprol XL] 50 mg PO BID Famotidine [Pepcid] 20 mg PO HS Furosemide [Lasix] 40 mg PO DAILY Potassium Chloride ER [K-Dur 20] 20 meq PO DAILY HYDROcodone/APAP 7.5-325MG [[place] 7.5-325] 1 tab PO Q8HR PRN 30 Days #45 tab PRN Reason: Pain Discharge Medication List Levothyroxine Sodium [Synthroid] 50 mcg PO DAILY 11/07/14 [History] Rosuvastatin [Crestor] 20 mg PO HS 10/09/16 [History] Rivaroxaban [Xarelto] 15 mg PO W/SUPPER tab 01/17/18 [Rx] Clopidogrel [Plavix] 75 tab PO DAILY 04/27/18 [History] Metoprolol Succinate (ER) [Toprol XL] 50 mg PO BID 05/17/18 [History] Famotidine [Pepcid] 20 mg PO HS 03/06/19 [History] Furosemide [Lasix] 40 mg PO DAILY 03/06/19 [History] Potassium Chloride ER [K-Dur 20] 20 meq PO DAILY 03/06/19 [History] HYDROcodone/APAP 7.5-325MG [[place] 7.5-325] 1 tab PO Q8HR PRN 30 Days #45 tab 12/18/20 [Rx] Tamsulosin [Flomax] 0.4 mg PO PC-BRKFST 30 Days #30 cap.er.24h 01/17/21 [Rx] predniSONE 10 mg PO DIRECTED 12 Days #15 tab 01/17/21 [Rx] Follow up Appointment(s)/Referral(s): [facility], [NON-STAFF] - 1 Week [facility] [NON-STAFF] - 1 Week Bertram Kirkpatrick MD [REFERRING] - 1-2 days Activity/Diet/Wound Care/Special Instructions: Activity as tolerated Diet heart healthy Discharge Disposition: HOME WITH HOME HEALTH SERVICES
--- NOTE | 2021-01-20 13:34 | PN ---
PROGRESS NOTE DATE OF SERVICE: 01/20/2021 REASON FOR FOLLOWUP: VRE urinary tract infection, possible cystitis. INTERVAL HISTORY: The patient is afebrile. The patient is feeling better. Breathing comfortably. Patient denies having any chest pain. No shortness of breath, cough, no abdominal pain and no diarrhea. PHYSICAL EXAMINATION: Blood pressure 110/67, pulse of 83, temperature 98. She is 93% on room air. General description is an elderly female lying in bed in no distress. Respiratory system: Unlabored breathing, clear to auscultation anteriorly. Heart S1, S2. Regular rate and rhythm. Abdomen: Soft, no tenderness. LABS: Hemoglobin is 12.7, white count 5.6. DIAGNOSTIC IMPRESSION AND PLAN: Patient with VRE, urinary tract infection more likely cystitis not behaving as deep infection. Has received 3 doses of Dapto, as mentioned earlier, should be enough. No need for antibiotic on discharge. MMODL / IJN: [id number] /
[2021-01-20 13:41] VITALS: BMI 32.8
[2021-01-20] MEDS: RIVAROXABAN 15 MG TAB PO SCH (17:22)
[2021-01-21] MEDS ORDERED: DAPTOmycin 350 MG in SODIUM CHLORIDE 0.9% 50 ML IVPB SCH (09:00)
== END 2021-01-20 18:25 | disposition home health service (06) | DRG 556 ==
LOC: EC 07:22 → 5NMEDONC 10:34
PROVIDERS: ADMIT Internal Medicine; ATTEND Internal Medicine
DX: M25.552 Pain in left hip (principal); I48.92 Unspecified atrial flutter; Z16.24 Resistance to multiple antibiotics; Z16.21 Resistance to vancomycin; M54.2 Cervicalgia; B95.2 Enterococcus as the cause of diseases classified elsewhere; E03.9 Hypothyroidism, unspecified; E78.5 Hyperlipidemia, unspecified; G89.29 Other chronic pain; I11.0 Hypertensive heart disease with heart failure; I25.10 Atherosclerotic heart disease of native coronary artery without angina pectoris; I25.2 Old myocardial infarction; I48.91 Unspecified atrial fibrillation; I50.9 Heart failure, unspecified; I73.9 Peripheral vascular disease, unspecified; J44.9 Chronic obstructive pulmonary disease, unspecified; K76.9 Liver disease, unspecified; L30.9 Dermatitis, unspecified; M16.11 Unilateral primary osteoarthritis, right hip; M53.3 Sacrococcygeal disorders, not elsewhere classified; Z79.890 Hormone replacement therapy; Z79.899 Other long term (current) drug therapy; Z80.0 Family history of malignant neoplasm of digestive organs; Z82.49 Family history of ischemic heart disease and other diseases of the circulatory system; Z82.5 Family history of asthma and other chronic lower respiratory diseases; Z85.41 Personal history of malignant neoplasm of cervix uteri; Z87.442 Personal history of urinary calculi; Z87.891 Personal history of nicotine dependence; Z90.710 Acquired absence of both cervix and uterus; Z91.81 History of falling; Z95.0 Presence of cardiac pacemaker; Z95.5 Presence of coronary angioplasty implant and graft; Z96.642 Presence of left artificial hip joint; Z79.01 Long term (current) use of anticoagulants; W18.30XA Fall on same level, unspecified, initial encounter; N30.90 Cystitis, unspecified without hematuria; M85.80 Other specified disorders of bone density and structure, unspecified site
CPT/HCPCS: 36415; 70450; 72125; 73521; 80048; 80053; 81001; 85025; 85610; 85730; 87077; 87086; 87186; 87635; 94760; 99285

== ENCOUNTER → 2021-06-18 | Outpatient (CLI) | payer MEDICARE, MEDICAID ==
--- NOTE | 2021-06-18 12:43 | P.PN ---
Subjective Progress Note Date: 06/18/21 Principal diagnosis: A 85 yr old female with daughter at side with a history of severe and chronic low back pain secondary to lumbar degenerative disc diseases and lumbar spondylosis with facet arthropathy presents today for medication refills. States she was unable to come to the clinic over the last several months and received some pain medications from a home visiting physician. States that her pain level is currently at 1 /10 but at times jumps to 10/ 10. Pain is dull/ achy in the middle pelvic part then shoots in a sharp/ shooting character towards her right leg. Pain is provoked by bending, twisting, standing. Pain is alleviated with medications, sitting, stretching and repositioning. Patient is currently on Pal[place]ine 7.5/ 325mg up to BID Patient denies any side effects of the medication(s), denies excessive drowsiness or sleepiness, denies suicidal ideation and reports that the current pain medication is helping to control the pain and improve activities of daily living. Patient denies any motor or sensory deficits. Patient denies any fever or night sweats, denies any change in the bowel movements or urination. Physical Examination: -Constitutional: Cooperative. Not in acute distress . -HEENT: Neck is supple. No lymphadenopathy. No thyromegaly. Normal thyroid size. Eyes: No ptosis , no icterus, no photophobia. ENT: No auditory deficits. Normal oropharynx. No Thrush. - Respiratory: Chest clear to auscultations bilaterally. No wheezing. No rhonchi. - Cardiovascular: Regular rate and rhythm. S1 / S2 , no S3 , no S4. - Gastrointestinal: Abdomen soft no tenderness. Bowel sounds positive in all four quadrants. No organomegaly. - Genitourinary: Deferred. - Neurologic: Cranial nerve II to XII intact. No focal neurological deficits. - Psychatric: Alert & oriented x 3. Matching mood & appropriate affect. Judgment and insight intact. - Lymphatic: No Lymphadenopathy. - Musculoskeletal: Cervical spine: Muscle bulk/ tone/ strength in the bilateral upper extremities normal. Facet loading test cervical area positive. Lumbar spine: Uses wheelchair for ambulation Motor bulk/ tone/ strength lower extremities , thigh and legs : age appropriate Deep tendon reflexes : Normal Knee Jerk. Normal Ankle Jerk . L5 vertebral body tenderness to palpation Lumbar Facet Loading Test positive at BL L4-L5/ L5-S1 Straight Leg Raise: positive at 30 degree right side/ left side Paresh test: positive right side / left side Range of motion: Flexion of the lumbar spine <60 degrees Range of motion: Extension of the lumbar spine <20 degrees Severe tenderness over the Sacroiliac joint: right side > left side Assessment and plan: Chronic low back pain secondary to lumbar degenerative disc disease , lumbar spondylosis with facet arthropathy without myelopathy Chronic and current use of high-risk medication (Opioids). The patient was counseled about risk of opioid use, psychological risk associated with opioids and was orally counseled to not overuse , divert or sell medications. Pt is to store medication in a safe location. The patient is counseled against driving while using narcotic medications and also not to use alcohol or any illicit recreational drugs. Patient verbalized understanding that the lack of compliance will result in failure to renew narcotic prescription(s) as well as possible discharge from the clinic Diagnoses, prognosis and treatment options including but not limited to physical therapy, surgical interventions, interventional therapies and medication management including narcotics and adjuvant medication were discussed. All patient questions answered MAPS reviewed and it was apropriate. Prescription refill for Palatine 7.5 /325mg BID prn #75 with one refill Urine collected for UDS Opioid agreement reissued / signed today I have spent 31 minutes on patient care today. Dr Petersen was available by phone for the evaluation of this patient. The time was used to review the medical records including relevant urine studies and Prescription history (MAPs), review of the available imaging, evaluation and examination of the patient, coordination of care with the medical staff and if applicable referring physicians, as well as creation of the medical record PQRS Measure Charge Sheet - Pain Location Right Leg Pharmacological Interventions: PRN Medication PQRS Narrative: Smoking Status Current every day smoker Pain Intensity [Right Leg] 0 Scale Used Numeric (1 - 10) Hx Alcohol Use (MH) Yes: rare Home Medications: Ambulatory Orders Levothyroxine Sodium [Synthroid] 50 mcg PO DAILY 11/07/14 Rosuvastatin [Crestor] 20 mg PO HS 10/09/16 Rivaroxaban [Xarelto] 15 mg PO W/SUPPER tab 01/17/18 Clopidogrel [Plavix] 75 tab PO DAILY 04/27/18 Metoprolol Succinate (ER) [Toprol XL] 50 mg PO BID 05/17/18 Famotidine [Pepcid] 20 mg PO HS 03/06/19 Furosemide [Lasix] 20 mg PO DAILY 03/06/19 Potassium Chloride ER [K-Dur 20] 20 meq PO DAILY 03/06/19 HYDROcodone/APAP 7.5-325MG [[place] 7.5-325] 1 tab PO Q8HR PRN 30 Days #45 tab 12/18/20
[2021-06-18 13:04] VITALS: BP 164/91; PULSE 76; RESP 18
== END ==
LOC: PNWHC3 11:49
PROVIDERS: ATTEND Physician Assistant Medical
DX: M47.816 Spondylosis without myelopathy or radiculopathy, lumbar region (principal); M51.36 Other intervertebral disc degeneration, lumbar region; G89.29 Other chronic pain; Z79.891 Long term (current) use of opiate analgesic; F17.200 Nicotine dependence, unspecified, uncomplicated; Z88.5 Allergy status to narcotic agent; Z88.8 Allergy status to other drugs, medicaments and biological substances
CPT/HCPCS: 80307; G0482; G0463; 99211; 99212

== ENCOUNTER 2021-07-23 13:59 | Inpatient (IN) | payer MEDICARE, MEDICAID ==
--- NOTE | 2021-07-23 15:16 | ED ---
General Adult HPI - General Chief complaint: Shortness of Breath Stated complaint: GRETA Time Seen by Provider: 07/23/21 14:24 Source: patient, EMS, RN notes reviewed Mode of arrival: EMS Limitations: no limitations - History of Present Illness Initial comments: Patient is a pleasant 85-year-old female presenting to the emergency department with difficulty breathing or leg swelling. Symptoms have progressively the past few days. Patient recently has been switched from a 6 to Bumex. Patient does have history of similar symptoms previously associated with CHF. Patient has mild discomfort of her legs secondary to the swelling. No calf pain. No fe vers. No cough. No chest pain. - Related Data Home Medications Medication Instructions Recorded Confirmed Levothyroxine Sodium [Synthroid] 50 mcg PO DAILY 11/07/14 07/23/21 Rosuvastatin [Crestor] 20 mg PO HS 10/09/16 07/23/21 Clopidogrel [Plavix] 75 tab PO DAILY 04/27/18 07/23/21 Metoprolol Succinate (ER) [Toprol 50 mg PO BID 05/17/18 07/23/21 XL] Famotidine [Pepcid] 20 mg PO DAILY 03/06/19 07/23/21 Potassium Chloride ER [K-Dur 20] 20 meq PO DAILY 03/06/19 07/23/21 Cholecalciferol [Vitamin D3 (25 50 mcg PO DAILY 07/23/21 07/23/21 Mcg = 1000 Iu)] Cyanocobalamin [Vitamin B-12] 500 mcg PO DAILY 07/23/21 07/23/21 Rivaroxaban [Xarelto] 15 mg PO HS 07/23/21 07/23/21 Previous Rx's Medication Instructions Recorded HYDROcodone/APAP 7.5-325MG [[place] 1 tab PO Q8HR PRN 30 Days #45 tab 12/18/20 7.5-325] Allergies Allergy/AdvReac Type Severity Reaction Status Date / Time hydromorphone [From Dilaudid] AdvReac Nausea & Verified 07/23/21 16:14 Vomiting lorazepam [From Ativan] AdvReac Hallucinati Verified 07/23/21 16:14 ons Review of Systems ROS Statement: Those systems with pertinent positive or pertinent negative responses have been documented in the HPI. ROS Other: All systems not noted in ROS Statement are negative. Constitutional: Denies: fever Eyes: Denies: eye pain ENT: Denies: ear pain Respiratory: Reports: dyspnea. Denies: cough Cardiovascular: Reports: edema. Denies: chest pain Endocrine: Denies: fatigue Gastrointestinal: Denies: abdominal pain Genitourinary: Denies: dysuria Musculoskeletal: Denies: back pain Skin: Denies: rash Neurological: Denies: weakness Past Medical History Past Medical History: Atrial Fibrillation, Atrial Flutter, Coronary Artery Disease (CAD), Cancer, Heart Failure, COPD, Hyperlipidemia, Hypertension, Liver Disease, Thyroid Disorder, Vascular Disorder Additional Past Medical History / Comment(s): hx Kidney Stones, Chronic N/T BILAT LEGS, WITH BLE EDEMA, states has had lymphedema with weeping valeria lower legs, degenerative arthritis, hx hepatitis C, hx cervical cancer, PVD Last Myocardial Infarction Date:: 2009 History of Any Multi-Drug Resistant Organisms: VRE Date of last positivie culture/infection: 01/14/21 MDRO Source:: VRE URINE Past Surgical History: Appendectomy, Cholecystectomy, Heart Catheterization With Stent, Hysterectomy, Joint Replacement, Pacemaker Additional Past Surgical History / Comment(s): valeria lower ext vascular r epairs,2-6-17 abd. aortogram, ERCP, 4 cardiac stents, left hip replacement Past Anesthesia/Blood Transfusion Reactions: Family History of Problems w/ Anesthesia Additional Past Anesthesia/Blood Transfusion Reaction / Comment(s): sister-long time to come out Date of Last Stent Placement:: 2010? Type of Cardiac Device: Permanent Pacemaker Device Placement Date:: 2014 Past Psychological History: No Psychological Hx Reported Smoking Status: Former smoker Past Alcohol Use History: None Reported Additional Past Alcohol Use History / Comment(s): Patient quit smoking in 2019. She smoked one pack per day for 70 years Past Drug Use History: None Reported - Past Family History Son(s) Family Medical History: Cancer Additional Family Medical History / Comment(s): Patient has 3 sons and one has been diagnosed with bladder cancer. Brother(s) Family Medical History: Cancer Additional Family Medical History / Comment(s): Patient has 2 brothers and one was diagnosed with esophageal cancer with metastatic disease. Daughter(s) Family Medical History: Cancer (patient has 3 daughters one of them was diagnosed with leukemia.) Additional Family Medical History / Comment(s): Patient has 3 daughters and one diagnosed with leukemia. General Exam Limitations: no limitations General appearance: alert, in no apparent distress Head exam: Present: normocephalic Eye exam: Present: normal appearance Neck exam: Present: normal inspection Respiratory exam: Present: normal lung sounds bilaterally Cardiovascular Exam: Present: tachycardia, irregular rhythm GI/Abdominal exam: Present: soft. Absent: tenderness Extremities exam: Present: pedal edema. Absent: calf tenderness Neurological exam: Present: alert Psychiatric exam: Present: normal affect, normal mood Skin exam: Present: normal color Course Vital Signs 07/23/21 14:07 Temperature 97.8 F Pulse Rate 119 H Respiratory 18 Rate Blood Pressure 158/113 O2 Sat by Pulse 97 Oximetry EKG Findings - EKG Comments: EKG Findings:: A flutter with rate of 114. QRS 89. QT 306. QTc 374. Left axis. Septal Q waves. PVCs present. Nonspecific ST-T. Medical Decision Making - Medical Decision Making Patient reevaluated. Patient updated on results and plan. Case discussed with Dr. Wayne, who will admit covering Dr. reid. - Lab Data Result diagrams: 07/23/21 15:06 07/23/21 15:06 Lab Results 07/23/21 07/23/21 07/23/21 Range/Units 15:06 15:06 15:06 WBC 7.4 (3.8-10.6) k/uL RBC 4.79 (3.80-5.40) m/uL Hgb 14.7 (11.4-16.0) gm/dL Hct 45.5 (34.0-46.0) % MCV 95.1 (80.0-100.0) fL MCH 30.6 (25.0-35.0) pg MCHC 32.2 (31.0-37.0) g/dL RDW 14.1 (11.5-15.5) % Plt Count 196 (150-450) k/uL MPV 7.9 Neutrophils % 47 % Lymphocytes % 39 % Monocytes % 8 % Eosinophils % 2 % Basophils % 1 % Neutrophils # 3.5 (1.3-7.7) k/uL Lymphocytes # 2.9 (1.0-4.8) k/uL Monocytes # 0.6 (0-1.0) k/uL Eosinophils # 0.2 (0-0.7) k/uL Basophils # 0.0 (0-0.2) k/uL PT 13.2 H (9.0-12.0) sec INR 1.3 H (<1.2) APTT 27.4 (22.0-30.0) sec Sodium 141 (137-145) mmol/L Potassium 4.5 (3.5-5.1) mmol/L Chloride 104 (98-107) mmol/L Carbon Dioxide 32 H (22-30) mmol/L Anion Gap 5 mmol/L BUN 36 H (7-17) mg/dL Creatinine 1.55 H (0.52-1.04) mg/dL Est GFR (CKD-EPI)AfAm 35 (>60 ml/min/1.73 sqM) Est GFR (CKD-EPI)NonAf 31 (>60 ml/min/1.73 sqM) Glucose 96 (74-99) mg/dL Calcium 10.0 (8.4-10.2) mg/dL Total Bilirubin 0.9 (0.2-1.3) mg/dL AST 24 (14-36) U/L ALT 11 (4-34) U/L Alkaline Phosphatase 104 (38-126) U/L Troponin I (0.000-0.034) ng/mL NT-Pro-B Natriuret Pep pg/mL Total Protein 8.0 (6.3-8.2) g/dL Albumin 3.9 (3.5-5.0) g/dL 07/23/21 07/23/21 Range/Units 15:06 15:06 WBC (3.8-10.6) k/uL RBC (3.80-5.40) m/uL Hgb (11.4-16.0) gm/dL Hct (34.0-46.0) % MCV (80.0-100.0) fL MCH (25.0-35.0) pg MCHC (31.0-37.0) g/dL RDW (11.5-15.5) % Plt Count (150-450) k/uL MPV Neutrophils % % Lymphocytes % % Monocytes % % Eosinophils % % Basophils % % Neutrophils # (1.3-7.7) k/uL Lymphocytes # (1.0-4.8) k/uL Monocytes # (0-1.0) k/uL Eosinophils # (0-0.7) k/uL Basophils # (0-0.2) k/uL PT (9.0-12.0) sec INR (<1.2) APTT (22.0-30.0) sec Sodium (137-145) mmol/L Potassium (3.5-5.1) mmol/L Chloride (98-107) mmol/L Carbon Dioxide (22-30) mmol/L Anion Gap mmol/L BUN (7-17) mg/dL Creatinine (0.52-1.04) mg/dL Est GFR (CKD-EPI)AfAm (>60 ml/min/1.73 sqM) Est GFR (CKD-EPI)NonAf (>60 ml/min/1.73 sqM) Glucose (74-99) mg/dL Calcium (8.4-10.2) mg/dL Total Bilirubin (0.2-1.3) mg/dL AST (14-36) U/L ALT (4-34) U/L Alkaline Phosphatase (38-126) U/L Troponin I <0.012 (0.000-0.034) ng/mL NT-Pro-B Natriuret Pep 2780 pg/mL Total Protein (6.3-8.2) g/dL Albumin (3.5-5.0) g/dL - Radiology Data Radiology results: image reviewed (Chest x-ray shows cardiomegaly and venous congestion. Mild COPD.) Disposition Clinical Impression: Congestive heart failure Disposition: ADMITTED IP TO THIS HOSP Is patient prescribed a controlled substance at d/c from ED?: No Referrals: Bethany Calle MD [Primary Care Provider] - 1-2 days Decision Time: 16:21
[2021-07-23 15:25] LABS: Basophils % (A) 1 %; Eosinophils # (A) 0.2 k/uL (0-0.7); Eosinophils % (A) 2 %; HCT 45.5 % (34.0-46.0); HGB 14.7 gm/dL (11.4-16.0); Lymphocytes # (A) 2.9 k/uL (1.0-4.8); Lymphocytes % (A) 39 %; MCH 30.6 pg (25.0-35.0); MCHC 32.2 g/dL (31.0-37.0); MCV 95.1 fL (80.0-100.0); Mean Platelet Volume 7.9; Monocytes # (A) 0.6 k/uL (0-1.0); Monocytes % (A) 8 %; Neutrophils # (A) 3.5 k/uL (1.3-7.7); Neutrophils % (A) 47 %; Platelet Count 196 k/uL (150-450); RBC 4.79 m/uL (3.80-5.40); RDW 14.1 % (11.5-15.5); WBC 7.4 k/uL (3.8-10.6)
[2021-07-23 15:33] LABS: INR 1.3 (<1.2); Partial Thromboplastin Time 27.4 sec (22.0-30.0); Prothrombin Time 13.2 sec (9.0-12.0)
[2021-07-23 15:51] LABS: Albumin 3.9 g/dL (3.5-5.0); Potassium 4.5 mmol/L (3.5-5.1); Total Bilirubin 0.9 mg/dL (0.2-1.3)
--- NOTE | 2021-07-23 15:58 | XR ---
EXAMINATION TYPE: XR chest 2V DATE OF EXAM: 07/23/2021 COMPARISON: 01/15/2018 TECHNIQUE: PA and lateral views submitted. HISTORY: Shortness of breath FINDINGS: Heart is enlarged and there is a cardiac device with diffuse interstitial pattern. Diffuse osteopenia with arthropathy of the shoulders. No pneumothorax. Small bilateral effusions. Degenerative change o f the spine. IMPRESSION: 1. Cardiomegaly correlate for COPD with mild superimposed venous congestion otherwise consider inters titial pneumonitis.
[2021-07-23] MEDS ORDERED: ASPIRIN 325 MG TAB PO STA (16:21)
[2021-07-23] MEDS ORDERED: BUMETANIDE 0.5 MG TABLET PO SCH (17:00)
[2021-07-23] MEDS: FAMOTIDINE 20 MG TAB PO SCH (19:23)
[2021-07-23] MEDS: FUROSEMIDE 10 MG/ML 4 ML VIAL IV SCH ×2 (19:24→19:26)
[2021-07-23] MEDS: NITROGLYCERIN OINT 1 INCH/GM PACKET TOPICAL SCH ×2 (19:25→21:36)
[2021-07-23] MEDS: HYDROcodone/APAP 7.5-325MG 1 EACH TAB PO PRN (21:29)
[2021-07-23] MEDS: RIVAROXABAN 15 MG TAB PO SCH (21:29)
[2021-07-23] MEDS: METOPROLOL SUCCINATE (ER) 50 MG TAB.ER.24H PO SCH (21:29)
[2021-07-23] MEDS: ATORVASTATIN 40 MG TAB PO SCH (21:33)
[2021-07-24] MEDS: HYDROcodone/APAP 7.5-325MG 1 EACH TAB PO PRN ×3 (04:47→21:15)
[2021-07-24] MEDS: LEVOTHYROXINE 50 MCG TAB PO SCH (04:47)
--- NOTE | 2021-07-24 08:25 | P.HPIM ---
History of Present Illness H&P Date: 07/23/21 Rohini Hansen, is an 85-year-old female who presented to [facility] emergency room with a chief complaint of worsening shortness of breath She was evaluated in the emergency room vital examination on presentation revealed a temperature of 97.8 pulse 119 respiration 18 blood pressure 158/113 and pulse ox of 97% on room air Laboratory data revealed a white blood count of 7.4 hemoglobin 14.7 platelet count 196 INR 1.3 sodium 141 potassium 4.5 chloride 104 CO2 32 BUN 36 creatinine 1.55 troponin level less than 0.012 BNP 2780 COVID-19 PCR was negative Testing in the emergency room revealed chest x-ray done in the emergency room revealed cardiomegaly with venous congestion. Patient was started on IV Lasix in the emergency room. Patient was admitted to medical floor for further evaluation and treatment, cardiology consultation was requested Past Medical History Past Medical History: Atrial Fibrillation, Atrial Flutter, Coronary Artery Disease (CAD), Cancer, Heart Failure, COPD, Hyperlipidemia, Hypertension, Liver Disease, Thyroid Disorder, Vascular Disorder Additional Past Medical History / Comment(s): hx Kidney Stones, Chronic N/T BILAT LEGS, WITH BLE EDEMA, states has had lymphedema with weeping valeria lower legs, degenerative arthritis, hx hepatitis C, hx cervical cancer, PVD Last Myocardial Infarction Date:: 2009 History of Any Multi-Drug Resistant Organisms: VRE Date of last positivie culture/infection: 01/14/21 MDRO Source:: VRE URINE Past Surgical History: Appendectomy, Cholecystectomy, Heart Catheterization With Stent, Hysterectomy, Joint Replacement, Pacemaker Additional Past Surgical History / Comment(s): valeria lower ext vascular repairs, 2--17 abd. aortogram, ERCP, 4 cardiac stents, left hip replacement Past Anesthesia/Blood Transfusion Reactions: Family History of Problems w/ Anesthesia Additional Past Anesthesia/Blood Transfusion Reaction / Comment(s): sister-long time to come out Date of Last Stent Placement:: 2010? Type of Cardiac Device: Permanent Pacemaker Device Placement Date:: 2014 Past Psychological History: No Psychological Hx Reported Smoking Status: Former smoker Past Alcohol Use History: None Reported Additional Past Alcohol Use History / Comment(s): Patient quit smoking in 2019. She smoked one pack per day for 70 years Past Drug Use History: None Reported - Past Family History Son(s) Family Medical History: Cancer Additional Family Medical History / Comment(s): Patient has 3 sons and one has been diagnosed with bladder cancer. Brother(s) Family Medical History: Cancer Additional Family Medical History / Comment(s): Patient has 2 brothers and one was diagnosed with esophageal cancer with metastatic disease. Daughter(s) Family Medical History: Cancer (patient has 3 daughters one of them was diagnosed with leukemia.) Additional Family Medical History / Comment(s): Patient has 3 daughters and one diagnosed with leukemia. Medications and Allergies Home Medications Medication Instructions Recorded Confirmed Type Levothyroxine Sodium [Synthroid] 50 mcg PO DAILY 11/07/14 07/23/21 History Rosuvastatin [Crestor] 20 mg PO HS 10/09/16 07/23/21 History Clopidogrel [Plavix] 75 tab PO DAILY 04/27/18 07/23/21 History Metoprolol Succinate (ER) [Toprol 50 mg PO BID 05/17/18 07/23/21 History XL] Famotidine [Pepcid] 20 mg PO DAILY 03/06/19 07/23/21 History Potassium Chloride ER [K-Dur 20] 20 meq PO DAILY 03/06/19 07/23/21 History HYDROcodone/APAP 7.5-325MG [[place] 1 tab PO Q8HR PRN 30 Days #45 tab 12/18/20 07/23/21 Rx 7.5-325] Bumetanide [BUMEX] 0.5 mg PO DAILY 07/23/21 07/23/21 History Cholecalciferol [Vitamin D3 (25 50 mcg PO DAILY 07/23/21 07/23/21 History Mcg = 1000 Iu)] Cyanocobalamin [Vitamin B-12] 500 mcg PO DAILY 07/23/21 07/23/21 History Rivaroxaban [Xarelto] 15 mg PO HS 07/23/21 07/23/21 History Allergies Allergy/AdvReac Type Severity Reaction Status Date / Time hydromorphone [From Dilaudid] AdvReac Nausea & Verified 07/23/21 16:14 Vomiting lorazepam [From Ativan] AdvReac Hallucinati Verified 07/23/21 16:14 ons Physical Exam Vitals: Vital Signs Temp Pulse Resp BP Pulse Ox 07/23/21 14:07 97.8 F 119 H 18 158/113 97 Intake and Output 07/23/21 07/23/21 07/23/21 06:59 14:59 22:59 Other: Weight 83.007 kg In general patient is alert and oriented x 3 in no distress HEENT head normocephalic and atraumatic Neck is supple no JVD no goiter no lymphadenopathy no carotid bruit Chest examination reveals scattered crackles in both lung bases no wheezing Cardiac exam reveals regular heart sounds S1 and S2 no gallops no murmurs Abdomen is soft nontender no organomegaly with normal bowel sounds Extremity exam reveals 2+ edema with bilateral pretibial erythema and multiple superficial ulcers Neurological examination reveals no gross focal deficits Results CBC & Chem 7: 07/23/21 15:06 07/23/21 15:06 Labs: Abnormal Lab Results - Last 24 Hours (Table) 07/23/21 07/23/21 Range/Units 15:06 15:06 PT 13.2 H (9.0-12.0) sec INR 1.3 H (<1.2) Carbon Dioxide 32 H (22-30) mmol/L BUN 36 H (7-17) mg/dL Creatinine 1.55 H (0.52-1.04) mg/dL Assessment and Plan Plan: Acute exacerbation of congestive heart failure Acute kidney injury with elevated BUN and creatinine, creatinine today 1.55 it was 1.3 in December 2020 BUN 36 6 was 28 in December 2020 Underlying history of atrial fibrillation, maintained on Xarelto Underlying history of hypothyroidism Underlying history of hypertension Underlying history of hyperlipidemia maintained on Crestor Underlying history of coronary artery disease with previous history of angioplasty and stent placement Underlying history of cardiac arrhythmia status post pacemaker placement Evidence of bilateral lower extremity cellulitis, will start on IV Ancef and monitor progress At this time patient was given IV Lasix in the emergency room Echocardiogram was ordered cardiology consultation requested Home medications reviewed and reordered For DVT prophylaxis patient is maintained on Xarelto For GI prophylaxis Will add Protonix Will follow closely
--- NOTE | 2021-07-24 08:27 | P.PN ---
Subjective Progress Note Date: 07/24/21 Rohini Hansen, is an 85-year-old female who presented to [facility] emergency room with a chief complaint of worsening shortness of breath She was evaluated in the emergency room vital examination on presentation revealed a temperature of 97.8 pulse 119 respiration 18 blood pressure 158/113 and pulse ox of 97% on room air Laboratory data revealed a white blood count of 7.4 hemoglobin 14.7 platelet count 196 INR 1.3 sodium 141 potassium 4.5 chloride 104 CO2 32 BUN 36 creatinine 1.55 troponin level less than 0.012 BNP 2780 COVID-19 PCR was negative Testing in the emergency room revealed chest x-ray done in the emergency room revealed cardiomegaly with venous congestion. Patient was started on IV Lasix in the emergency room. Patient was admitted to medical floor for further evaluation and treatment, cardiology consultation was requested On 07/24/2021 patient was seen and examined on the medical floor she is alert and oriented 3 in no apparent distress she is still complaining of shortness of breath and bilateral lower extremity tenderness to touch otherwise she denies a ny complaints there is no fever or chills no headache or dizziness no chest pain no cough no nausea or vomiting no abdominal pain no diarrhea no blood in the stools no burning with urination no frequency or urgency and no hematuria Objective - Vital Signs Vital signs: Vital Signs Temp 97.8 F 07/24/21 07:20 Pulse 58 L 07/24/21 07:20 Resp 17 07/24/21 07:20 BP 120/71 07/24/21 07:20 Pulse Ox 97 07/24/21 07:20 Intake & Output 07/23/21 07/24/21 07/24/21 18:59 06:59 18:59 Weight 83.007 kg Other: # Voids 2 - Exam In general patient is alert and oriented x 3 in no distress HEENT head normocephalic and atraumatic Neck is supple no JVD no goiter no lymphadenopathy no carotid bruit Chest examination reveals scattered crackles in both lung bases no wheezing Cardiac exam reveals regular heart sounds S1 and S2 no gallops no murmurs Abdomen is soft nontender no organomegaly with normal bowel sounds Extremity exam reveals 2+ edema with bilateral pretibial erythema and multiple superficial ulcers Neurological examination reveals no gross focal deficits - Labs CBC & Chem 7: 07/23/21 15:06 07/23/21 15:06 Labs: Abnormal Lab Results - Last 24 Hours (Table) 07/23/21 07/23/21 Range/Units 15:06 15:06 PT 13.2 H (9.0-12.0) sec INR 1.3 H (<1.2) Carbon Dioxide 32 H (22-30) mmol/L BUN 36 H (7-17) mg/dL Creatinine 1.55 H (0.52-1.04) mg/dL Assessment and Plan Plan: Acute exacerbation of congestive heart failure Acute kidney injury with elevated BUN and creatinine, creatinine today 1.55 it was 1.3 in December 2020 BUN 36 6 was 28 in December 2020 Underlying history of atrial fibrillation, maintained on Xarelto Underlying history of hypothyroidism Underlying history of hypertension Underlying history of hyperlipidemia maintained on Crestor Underlying history of coronary artery disease with previous history of angioplasty and stent placement Underlying history of cardiac arrhythmia status post pacemaker placement Evidence of bilateral lower extremity cellulitis, will start on IV Ancef and mo nitor progress At this time patient was given IV Lasix in the emergency room Echocardiogram was ordered cardiology consultation requested Home medications reviewed and reordered For DVT prophylaxis patient is maintained on Xarelto For GI prophylaxis Will add Protonix Will follow closely
[2021-07-24] MEDS ORDERED: ASPIRIN 325 MG TAB PO SCH (09:00)
[2021-07-24] MEDS: FUROSEMIDE 10 MG/ML 4 ML VIAL IV SCH ×2 (09:03→17:08)
[2021-07-24] MEDS: CHOLECALCIFEROL 25 MCG (1000 IU) TABLET PO SCH (09:04)
[2021-07-24] MEDS: METOPROLOL SUCCINATE (ER) 50 MG TAB.ER.24H PO SCH ×2 (09:04→20:20)
[2021-07-24] MEDS: POTASSIUM CHLORIDE ER 20 MEQ TAB.ER PO SCH (09:04)
[2021-07-24] MEDS: FAMOTIDINE 20 MG TAB PO SCH (09:04)
[2021-07-24] MEDS: CLOPIDOGREL 75 MG TAB PO SCH (09:04)
[2021-07-24] MEDS: CYANOCOBALAMIN 500 MCG TAB PO SCH (09:04)
--- NOTE | 2021-07-24 10:50 | P.CRDCN ---
History of Present Illness History of present illness: HISTORY OF PRESENTING ILLNESS This is a pleasant 85-year-old -year-old female past medical history significant for coronary artery disease status post PCI SALUD to mid RCA in 2011, hypertension , dyslipidemia, former smoker, paroxysmal atrial fibrillation on Xarelto, sick sinus syndrome status post dual chamber pacemaker implantation in 10/2014, peripheral vascular disease status post stenting of the right and left common iliac arteries in 2017, non-ischemic cardiomyopathy with improvement in ejection fraction, hypothyroidism. She follows in the office with Dr. Teague. We have been asked to see in consultation for congestive heart failure. Patient presents emergency department with worsening symptoms of shortness of breath and bilateral lower extremity edema. She also has noticed a 14lb weight gain in the past 2 weeks. Patient states that over the past 2 weeks she's been feeling more short of breath with activity and has noticed her bilateral lower extremities have been increased in swelling. She states last month she was transition to Bumex from Lasix. She denies any symptoms of chest pain, palpitations, lightheadedness, dizziness, syncope or near-syncope. She denies any symptoms of orthopnea or PND. She states she currently states with 1 pillow. She denies any increased salt intake. She does endorse increased fluid intake. DIAGNOSTICS -EKG reveals atrial fibrillation with rapid ventricular response, heart rate 114, PVCs -Telemetry tracings indicate atrial paced, underlying atrial fibrillation, PVCs -Chest xray cardiomegaly and superimposed venous congestion. -Most recent stress test 01/2020 Lexiscan was negative for reversible ischemia -Most recent echocardiogram 08/2018 revealed an EF 55%, mild to moderate mitral regurgitation, mildly increased pulmonary arterial systolic pressure -Holter monitor in 2019 revealed sinus mechanism with intermittent atrial pacing, minimal ventricular pacing noted heart rate ranged 5693 BPM, longest parts 1.7 seconds no sustained or nonsustained arrhythmias -Laboratory reviewed, CBC unremarkable, proBNP 2780, troponin negative, sodium 141, potassium 4.5, BUN 36, serum creatinine 1.5 -Current home cardiac medications include Bumex 0.5 mg daily, rosuvastatin 20 mg nightly, Xarelto 50 mg daily, Toprol 11/16/1948 milligrams twice a day, Synthroid 50mcg daily, Plavix 75 mg daily REVIEW OF SYSTEMS At the time of my exam: CONSTITUTIONAL: Denies fever or chills. CARDIOVASCULAR: Denies chest pain, shortness of breath, orthopnea, PND or palpitations. RESPIRATORY: Denies cough. GASTROINTESTINAL: Denies abdominal pain, diarrhea, constipation, nausea or vomiting. MUSCULOSKELETAL: Denies myalgias. NEUROLOGIC: Denies numbness, tingling, headacbe or weakness. ENDOCRINE: Denies fatigue, weight change, polydipsia or polyurina. GENITOURINARY: Denies burning, hematuria or urgency with micturation. HEMATOLOGIC: Denies history of anemia or bleeding. PHYSICAL EXAMINATION Blood pressure 120/71, heart rate 58, afebrile, saturations 97% on room air CONSTITUTIONAL: No apparent distress. HEENT: Head is normocephalic. Pupils are equal, round. Sclerae anicteric. Mucous membranes of the mouth are moist. No JVD. No carotid bruit. CHEST EXAMINATION: Lungs with crackles in the bases bilaterally to auscultation. No chest wall tenderness is noted on palpation or with deep breathing. HEART EXAMINATION: Irregular rate and rhythm. S1, S2 heard. Ejection mumur noted at apex. No gallops or rub. ABDOMEN: Soft, nontender. Positive bowel sounds. EXTREMITIES: 2+ peripheral pulses, 3+ bilateral lower extremity edema and no calf tenderness. NEUROLOGIC EXAMINATION: Patient is awake, alert and oriented x3. ASSESSMENT Acute on chronic heart failure with preserved ejection fraction Coronary artery disease status post PCI SALUD to mid RCA in 2011 Sick sinus syndrome status post dual chamber pacemaker implantation in History of hypertension Dyslipidemia Former smoker Paroxysmal Atrial fibrillation on Xarelto Peripheral vascular disease status post prior stenting in 2017 Chronic kidney disease PLAN -Interrogate device to assess how long patient has been in atrial fibrillation -Obtain 2D echocardiogram and doppler study to assess cardiac structure and function. -Continue IV LaSix 40mg BID -Monitor I/Os, daily weights, renal function and electrolytes -Continue home statin, Plavix, metoprolol succinate in Xarelto -Further recommendations based on clinical course Nurse practitioner note has been reviewed by physician. Signing provider agrees with the documented findings, assessment, and plan of care. Past Medical History Past Medical History: Atrial Fibrillation, Atrial Flutter, Coronary Artery Disease (CAD), Cancer, Heart Failure, COPD, Hyperlipidemia, Hypertension, Liver Disease, Thyroid Disorder, Vascular Disorder Additional Past Medical History / Comment(s): hx Kidney Stones, Chronic N/T BILAT LEGS, WITH BLE EDEMA, states has had lymphedema with weeping valeria lower legs, degenerative arthritis, hx hepatitis C, hx cervical cancer, PVD Last Myocardial Infarction Date:: 2009 History of Any Multi-Drug Resistant Organisms: VRE Date of last positivie culture/infection: 01/14/21 MDRO Source:: VRE URINE Past Surgical History: Appendectomy, Cholecystectomy, Heart Catheterization With Stent, Hysterectomy, Joint Replacement, Pacemaker Additional Past Surgical History / Comment(s): valeria lower ext vascular repairs,2-6-17 abd. aortogram, ERCP, 4 cardiac stents, left hip replacement Past Anesthesia/Blood Transfusion Reactions: Family History of Problems w/ Anesthesia Additional Past Anesthesia/Blood Transfusion Reaction / Comment(s): sister-long time to come out Date of Last Stent Placement:: 2010? Type of Cardiac Device: Permanent Pacemaker Device Placement Date:: 2014 Past Psychological History: No Psychological Hx Reported Smoking Status: Former smoker Past Alcohol Use History: None Reported Additional Past Alcohol Use History / Comment(s): Patient quit smoking in 2019. She smoked one pack per day for 70 years Past Drug Use History: None Reported - Past Family History Son(s) Family Medical History: Cancer Additional Family Medical History / Comment(s): Patient has 3 sons and one has been diagnosed with bladder cancer. Brother(s) Family Medical History: Cancer Additional Family Medical History / Comment(s): Patient has 2 brothers and one was diagnosed with esophageal cancer with metastatic disease. Daughter(s) Family Medical History: Cancer (patient has 3 daughters one of them was diagnosed with leukemia.) Additional Family Medical History / Comment(s): Patient has 3 daughters and one diagnosed with leukemia. Medications and Allergies Home Medications Medication Instructions Recorded Confirmed Type Levothyroxine Sodium [Synthroid] 50 mcg PO DAILY 11/07/14 07/23/21 History Rosuvastatin [Crestor] 20 mg PO HS 10/09/16 07/23/21 History Clopidogrel [Plavix] 75 tab PO DAILY 04/27/18 07/23/21 History Metoprolol Succinate (ER) [Toprol 50 mg PO BID 05/17/18 07/23/21 History XL] Famotidine [Pepcid] 20 mg PO DAILY 03/06/19 07/23/21 History Potassium Chloride ER [K-Dur 20] 20 meq PO DAILY 03/06/19 07/23/21 History HYDROcodone/APAP 7.5-325MG [[place] 1 tab PO Q8HR PRN 30 Days #45 tab 12/18/20 07/23/21 Rx 7.5-325] Bumetanide [BUMEX] 0.5 mg PO DAILY 07/23/21 07/23/21 History Cholecalciferol [Vitamin D3 (25 50 mcg PO DAILY 07/23/21 07/23/21 History Mcg = 1000 Iu)] Cyanocobalamin [Vitamin B-12] 500 mcg PO DAILY 07/23/21 07/23/21 History Rivaroxaban [Xarelto] 15 mg PO HS 07/23/21 07/23/21 History Allergies Allergy/AdvReac Type Severity Reaction Status Date / Time hydromorphone [From Dilaudid] AdvReac Nausea & Verified 07/23/21 16:14 Vomiting lorazepam [From Ativan] AdvReac Hallucinati Verified 07/23/21 16:14 ons Physical Exam Vitals: Vital Signs Temp Pulse Pulse Resp BP BP BP 07/24/21 07:20 97.8 F 58 L 17 120/71 07/24/21 01:40 97.8 F 58 L 16 133/81 07/23/21 21:00 16 07/23/21 20:56 98.2 F 60 16 143/71 07/23/21 20:39 84 18 132/84 07/23/21 18:35 78 18 137/59 07/23/21 14:07 97.8 F 119 H 18 158/113 Pulse Ox 07/24/21 07:20 97 07/24/21 01:40 95 07/23/21 21:00 07/23/21 20:56 97 07/23/21 20:39 95 07/23/21 18:35 95 07/23/21 14:07 97 Intake and Output 07/23/21 07/24/21 07/24/21 22:59 06:59 14:59 Other: # Voids 1 2 Weight 83.007 kg Results 07/23/21 15:06 07/23/21 15:06 Cardiac Enzymes 07/23/21 07/23/21 Range/Units 15:06 15:06 AST 24 (14-36) U/L Troponin I <0.012 (0.000-0.034) ng/mL Coagulation 07/23/21 Range/Units 15:06 PT 13.2 H (9.0-12.0) sec APTT 27.4 (22.0-30.0) sec CBC 07/23/21 Range/Units 15:06 WBC 7.4 (3.8-10.6) k/uL RBC 4.79 (3.80-5.40) m/uL Hgb 14.7 (11.4-16.0) gm/dL Hct 45.5 (34.0-46.0) % Plt Count 196 (150-450) k/uL Comprehensive Metabolic Panel 07/23/21 Range/Units 15:06 Sodium 141 (137-145) mmol/L Potassium 4.5 (3.5-5.1) mmol/L Chloride 104 (98-107) mmol/L Carbon Dioxide 32 H (22-30) mmol/L BUN 36 H (7-17) mg/dL Creatinine 1.55 H (0.52-1.04) mg/dL Glucose 96 (74-99) mg/dL Calcium 10.0 (8.4-10.2) mg/dL AST 24 (14-36) U/L ALT 11 (4-34) U/L Alkaline Phosphatase 104 (38-126) U/L Total Protein 8.0 (6.3-8.2) g/dL Albumin 3.9 (3.5-5.0) g/dL Current Medications Generic Name Dose Route Start Last Admin Trade Name Freq PRN Reason Stop Dose Admin Hydrocodone Bitart/Acetaminophen 1 each 07/23/21 16:59 07/24/21 04:47 Hydrocodone/Apap 7.5-325mg 1 Each Tab PO 1 each Q8HR PRN Administration Pain Atorvastatin Calcium 40 mg 07/23/21 21:00 07/23/21 21:33 Atorvastatin 40 Mg Tab PO Not Given HS SERGIO Bumetanide 0.5 mg 07/23/21 17:00 07/23/21 19:24 Bumetanide 0.5 Mg Tablet PO Not Given DAILY SERGIO Cholecalciferol 50 mcg 07/24/21 09:00 Cholecalciferol 25 Mcg (1000 Iu) Tablet PO DAILY SERGIO Clopidogrel Bisulfate 75 mg 07/24/21 09:00 Clopidogrel 75 Mg Tab PO DAILY SERGIO Cyanocobalamin 500 mcg 07/24/21 09:00 Cyanocobalamin 500 Mcg Tab PO DAILY SERGIO Famotidine 20 mg 07/23/21 17:00 07/23/21 19:23 Famotidine 20 Mg Tab PO 20 mg DAILY SERGIO Administration Furosemide 40 mg 07/23/21 17:00 07/23/21 19:26 Furosemide 10 Mg/Ml 4 Ml Vial IV Not Given Q12H SERGIO Levothyroxine Sodium 50 mcg 07/24/21 06:30 07/24/21 04:47 Levothyroxine 50 Mcg Tab PO 50 mcg DAILY@0630 SERGIO Administration Metoprolol Succinate 50 mg 07/23/21 21:00 07/23/21 21:29 Metoprolol Succinate (Er) 50 Mg Tab.Er.24h PO 50 mg BID SERGIO Administration Potassium Chloride 20 meq 07/24/21 09:00 Potassium Chloride Er 20 Meq Tab.Er PO DAILY SERGIO Rivaroxaban 15 mg 07/23/21 21:00 07/23/21 21:29 Rivaroxaban 15 Mg Tab PO 15 mg HS SERGIO Administration Protocol Sodium Chloride 10 ml 07/23/21 21:00 07/23/21 23:25 Sodium Chloride 0.9% Flush 10 Ml Syringe IV 10 ml BID SERGIO Administration Intake and Output 07/23/21 07/24/21 07/24/21 22:59 06:59 14:59 Other: # Voids 1 2 Weight 83.007 kg 07/23/21 15:06 07/23/21 15:06
[2021-07-24 11:06] LABS: Basophils # (A) 0.02 X 10*3/uL (0.00-0.10); Basophils % (A) 0.3 %; Eosinophils # (A) 0.25 X 10*3/uL (0.04-0.35); Eosinophils % (A) 4.2 %; HCT 39.4 % (37.2-46.3); HGB 11.9 g/dL (12.0-15.0); Immature Grans, Automated 0.2 %; Lymphocytes # (A) 2.61 X 10*3/uL (0.90-5.00); Lymphocytes % (A) 43.4 %; MCH 29.2 pg (27.0-32.0); MCHC 30.2 g/dL (32.0-37.0); MCV 96.6 fL (80.0-97.0); Mean Platelet Volume 10.7 fL (9.5-12.2); Monocytes # (A) 0.81 X 10*3/uL (0.20-1.00); Monocytes % (A) 13.5 %; NRBC Per 100 WBC 0 /100 WBCS (0.0-0.0); Neutrophils # (A) 2.31 X 10*3/uL (1.80-7.70); Neutrophils % (A) 38.4 %; Platelet Count 174 X 10*3/uL (140-440); RBC 4.08 X 10*6/uL (4.10-5.20); RDW 14.6 % (11.5-14.5); WBC 6.01 X 10*3/uL (4.50-10.00)
[2021-07-24 11:46] LABS: African American GFR (CKD) 36.7 (60.0-200.0); Albumin 3.3 g/dL (3.8-4.9); Albumin/Globulin Ratio 1.14 (1.60-3.17); Anion Gap 10.7 mmol/L (10.00-18.00); BUN/Creat Ratio 21.27 Ratio (12.00-20.00); Blood Urea Nitrogen 31.9 mg/dL (9.0-27.0); Calcium 9.4 mg/dL (8.7-10.3); Carbon Dioxide 26.3 mmol/L (20.0-27.5); Globulin 2.9 g/dL (1.6-3.3); Non-African American GFR(CKD) 31.7 (60.0-200.0); Potassium 4.4 mmol/L (3.5-5.5); Total Bilirubin 0.4 mg/dL (0.30-1.20); Total Protein 6.2 g/dL (6.2-8.2)
[2021-07-24 11:47] VITALS: BMI 34.5
--- NOTE | 2021-07-24 11:57 | ECHOF ---
Referral Reason:LV function, chf MEASUREMENTS -------- HEIGHT: 154.9 cm WEIGHT: 83.0 kg BP: 120/71 RVIDd: 2.3 cm (< 3.3) IVSd: 0.9 cm (0.6 - 1.1) LVIDd: 3.9 cm (3.9 - 5.3) LVPWd: 0.9 cm (0.6 - 1.1) IVSs: 1.5 cm LVIDs: 2.0 cm LVPWs: 1.3 cm LA Diam: 2.5 cm (2.7 - 3.8) Ao Diam: 3.2 cm (2.0 - 3.7) AV Cusp: 1.9 cm (1.5 - 2.6) MV EXCURSION: 17.405 mm (> 18.000) MV EF SLOPE: 85 mm/s (70 - 150) EPSS: 0.3 cm MV E Saleem: 0.88 m/s MV DecT: 274 ms MV A Saleem: 0.76 m/s MV E/A Ratio: 1.16 RAP: 15.00 mmHg RVSP: 47.58 mmHg FINDINGS -------- Sinus rhythm. Pacerwire seen in RV and RA. This was a technically adequate study. The left ventricular size is normal. Left ventricular wall thickness is normal. Overall left vent ricular systolic function is normal with, an EF between 55 - 60 %. The right ventricle is normal in size. The left atrium is normal in size. The right atrium is normal in size. Interatrial and interventricular septum intact. Aortic valve is trileaflet and is mildly thickened. Mild mitral annular calcification present. Mild mitral regurgitation is present. The tricuspid valve appears structurally normal. [id number] tricuspid regurgitation present. There is mild to moderate pulmonary hypertension. The right ventricular systolic pressure, as nicky sured by Doppler, is 47.58mmHg. Trace/mild (physiologic) pulmonic regurgitation. The aortic root size is normal. Normal inferior vena cava with less than 50% inspiratory collapse consistent with estimated right atr ial pressure of 15 mmHg. There is no pericardial effusion. CONCLUSIONS -------- 1. Pacerwire seen in RV and RA. 2. Left ventricular wall thickness is normal. 3. Overall left ventricular systolic function is normal with, an EF between 55 - 60 %. 4. Aortic valve is trileaflet and is mildly thickened. 5. Mild mitral annular calcification present. 6. Mild mitral regurgitation is present. 7. Hzej-mn-[id number] tricuspid regurgitation present. 8. There is mild to moderate pulmonary hypertension. 9. Trace/mild (physiologic) pulmonic regurgitation. 10. Normal inferior vena cava with less than 50% inspiratory collapse consistent with estimated right atrial pressure of 15 mmHg. 11. There is no pericardial effusion. RETAIL PHARMACIST: SABA Lockett
--- NOTE | 2021-07-24 13:11 | P.NPCON ---
History of Present Illness - Reason for Consult acute renal failure - History of Present Illness Patient is a 85-year-old female with history of chronic A. fib urinary artery disease COPD. Patient is admitted to the hospital with complaints of worsening shortness of breath and increased lower extremity swelling. She denied any chest pains. Patient is currently being diuresed. She is maintained on IV Lasix. Serum creatinine was 1.55 mg/dL yesterday and to date is at 1.5. Previous creatinine noted to be 1.3 on 01/24/2021. Blood pressure is not low Patient is voiding on her own. Ejection fraction 55-60%. With moderate pulmonary hypertension Review of Systems As per HPI other systems negative Past Medical History Past Medical History: Atrial Fibrillation, Atrial Flutter, Coronary Artery Disease (CAD), Cancer, Heart Failure, COPD, Hyperlipidemia, Hypertension, Liver Disease, Thyroid Disorder, Vascular Disorder Additional Past Medical History / Comment(s): hx Kidney Stones, Chronic N/T BILAT LEGS, WITH BLE EDEMA, states has had lymphedema with weeping valeria lower legs, degenerative arthritis, hx hepatitis C, hx cervical cancer, PVD Last Myocardial Infarction Date:: 2009 History of Any Multi-Drug Resistant Organisms: VRE Date of last positivie culture/infection: 01/14/21 MDRO Source:: VRE URINE Past Surgical History: Appendectomy, Cholecystectomy, Heart Catheterization With Stent, Hysterectomy, Joint Replacement, Pacemaker Additional Past Surgical History / Comment(s): valeria lower ext vascular repairs,2-6-17 abd. aortogram, ERCP, 4 cardiac stents, left hip replacement Past Anesthesia/Blood Transfusion Reactions: Family History of Problems w/ Anesthesia Additional Past Anesthesia/Blood Transfusion Reaction / Comment(s): sister-long time to come out Date of Last Stent Placement:: 2010? Type of Cardiac Device: Permanent Pacemaker Device Placement Date:: 2014 Past Psychological History: No Psychological Hx Reported Smoking Status: Former smoker Past Alcohol Use History: None Reported Additional Past Alcohol Use History / Comment(s): Patient quit smoking in 2019. She smoked one pack per day for 70 years Past Drug Use History: None Reported - Past Family History Son(s) Family Medical History: Cancer Additional Family Medical History / Comment(s): Patient has 3 sons and one has been diagnosed with bladder cancer. Brother(s) Family Medical History: Cancer Additional Family Medical History / Comment(s): Patient has 2 brothers and one was diagnosed with esophageal cancer with metastatic disease. Daughter(s) Family Medical History: Cancer (patient has 3 daughters one of them was diagnosed with leukemia.) Additional Family Medical History / Comment(s): Patient has 3 daughters and one diagnosed with leukemia. Medications and Allergies Home Medications Medication Instructions Recorded Confirmed Type Levothyroxine Sodium [Synthroid] 50 mcg PO DAILY 11/07/14 07/23/21 History Rosuvastatin [Crestor] 20 mg PO HS 10/09/16 07/23/21 History Clopidogrel [Plavix] 75 tab PO DAILY 04/27/18 07/23/21 History Metoprolol Succinate (ER) [Toprol 50 mg PO BID 05/17/18 07/23/21 History XL] Famotidine [Pepcid] 20 mg PO DAILY 03/06/19 07/23/21 History Potassium Chloride ER [K-Dur 20] 20 meq PO DAILY 03/06/19 07/23/21 History HYDROcodone/APAP 7.5-325MG [[place] 1 tab PO Q8HR PRN 30 Days #45 tab 12/18/20 07/23/21 Rx 7.5-325] Bumetanide [BUMEX] 0.5 mg PO DAILY 07/23/21 07/23/21 History Cholecalciferol [Vitamin D3 (25 50 mcg PO DAILY 07/23/21 07/23/21 History Mcg = 1000 Iu)] Cyanocobalamin [Vitamin B-12] 500 mcg PO DAILY 07/23/21 07/23/21 History Rivaroxaban [Xarelto] 15 mg PO HS 07/23/21 07/23/21 History Allergies Allergy/AdvReac Type Severity Reaction Status Date / Time hydromorphone [From Dilaudid] AdvReac Nausea & Verified 07/23/21 16:14 Vomiting lorazepam [From Ativan] AdvReac Hallucinati Verified 07/23/21 16:14 ons Physical Exam Vitals: Vital Signs Temp Pulse Pulse Resp BP BP BP 07/24/21 08:26 07/24/21 07:20 97.8 F 58 L 17 120/71 07/24/21 01:40 97.8 F 58 L 16 133/81 07/23/21 21:00 16 07/23/21 20:56 98.2 F 60 16 143/71 07/23/21 20:39 84 18 132/84 07/23/21 18:35 78 18 137/59 07/23/21 14:07 97.8 F 119 H 18 158/113 Pulse Ox 07/24/21 08:26 96 07/24/21 07:20 97 07/24/21 01:40 95 07/23/21 21:00 07/23/21 20:56 97 07/23/21 20:39 95 07/23/21 18:35 95 07/23/21 14:07 97 Intake and Output 07/23/21 07/24/21 07/24/21 22:59 06:59 14:59 Intake Total 118 Balance 118 Intake: Oral 118 Other: Voiding Method Bedside Commode # Voids 1 2 Weight 83.007 kg 83.007 kg Patient is awake comfortable, not in any acute distress. Examination of the heart S1 and S2 Examination lungs bilateral breath sounds are heard, decreased breath sounds at the bases Abdomen is soft nontender Examination lower extremity shows chronic skin changes with chronic edema bilaterally about 3+ [employer] exam grossly intact Results - Lab Results Most recent lab results Calcium 9.4 mg/dL (8.7-10.3) 07/24/21 06:58 07/24/21 05:58 07/24/21 06:58 Assessment and Plan Assessment: 1. Acute kidney injury mostly cardiorenal, currently stable. Continue with current dose of diuretics. Check urine analysis 2. 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 CHF acute, mostly diastolic 4. Chronic A. fib maintained on Zaroxolyn 2, rate is controlled maintained on Toprol 5. Hypothyroidism maintained on supplementation 6. Coronary artery disease with history of coronary stent placement Plan: Continue with current dose of IV Lasix Check urine analysis Check ultrasound of the kidneys Repeat labs in a.m. Check accurate I's and O's
[2021-07-24] MEDS: ATORVASTATIN 40 MG TAB PO SCH (20:20)
[2021-07-24] MEDS: RIVAROXABAN 15 MG TAB PO SCH (20:20)
[2021-07-25] MEDS: HYDROcodone/APAP 7.5-325MG 1 EACH TAB PO PRN ×2 (03:25→22:07)
[2021-07-25] MEDS: FUROSEMIDE 10 MG/ML 4 ML VIAL IV SCH (06:32)
[2021-07-25] MEDS: LEVOTHYROXINE 50 MCG TAB PO SCH (06:32)
[2021-07-25 09:43] LABS: Basophils # (A) 0.02 X 10*3/uL (0.00-0.10); Basophils % (A) 0.3 %; Eosinophils # (A) 0.27 X 10*3/uL (0.04-0.35); Eosinophils % (A) 4.5 %; HCT 41.7 % (37.2-46.3); HGB 12.7 g/dL (12.0-15.0); Immature Grans, Automated 0.2 %; Lymphocytes # (A) 2.29 X 10*3/uL (0.90-5.00); Lymphocytes % (A) 38.5 %; MCH 28.7 pg (27.0-32.0); MCHC 30.5 g/dL (32.0-37.0); MCV 94.3 fL (80.0-97.0); Mean Platelet Volume 10.5 fL (9.5-12.2); Monocytes # (A) 0.84 X 10*3/uL (0.20-1.00); Monocytes % (A) 14.1 %; NRBC Per 100 WBC 0 /100 WBCS (0.0-0.0); Neutrophils # (A) 2.52 X 10*3/uL (1.80-7.70); Neutrophils % (A) 42.4 %; Platelet Count 181 X 10*3/uL (140-440); RBC 4.42 X 10*6/uL (4.10-5.20); RDW 14.4 % (11.5-14.5); WBC 5.95 X 10*3/uL (4.50-10.00)
[2021-07-25] MEDS: FAMOTIDINE 20 MG TAB PO SCH (10:05)
[2021-07-25] MEDS: CHOLECALCIFEROL 25 MCG (1000 IU) TABLET PO SCH (10:05)
[2021-07-25] MEDS: POTASSIUM CHLORIDE ER 20 MEQ TAB.ER PO SCH (10:05)
[2021-07-25] MEDS: METOPROLOL SUCCINATE (ER) 50 MG TAB.ER.24H PO SCH ×2 (10:05→22:07)
[2021-07-25] MEDS: CLOPIDOGREL 75 MG TAB PO SCH (10:06)
[2021-07-25] MEDS: CYANOCOBALAMIN 500 MCG TAB PO SCH (10:06)
[2021-07-25 10:11] LABS: African American GFR (CKD) 29.4 (60.0-200.0); Albumin 3.4 g/dL (3.8-4.9); Albumin/Globulin Ratio 1.13 (1.60-3.17); BUN/Creat Ratio 19.78 Ratio (12.00-20.00); Blood Urea Nitrogen 35.6 mg/dL (9.0-27.0); Calcium 9.3 mg/dL (8.7-10.3); Non-African American GFR(CKD) 25.4 (60.0-200.0); Potassium 4.8 mmol/L (3.5-5.5); Total Bilirubin 0.5 mg/dL (0.30-1.20); Total Protein 6.4 g/dL (6.2-8.2)
--- NOTE | 2021-07-25 10:23 | P.PN ---
Subjective Patient is seen in follow-up for acute kidney injury on chronic kidney disease. Renal function worse today from diuresis. On room air. Blood pressure stable. Good urine output. No vomiting or diarrhea. Vital signs are stable. HEENT: Head exam is unremarkable. LUNGS: Breath sounds decreased. HEART: Rate and Rhythm are regular. ABDOMEN: Soft, no distention. EXTREMITITES: Chronic changes noted. Trace edema. Objective - Vital Signs Vital signs: Vital Signs Temp 97.9 F 07/25/21 07:30 Pulse 54 L 07/25/21 07:30 Resp 16 07/25/21 07:30 BP 133/90 07/25/21 07:30 Pulse Ox 98 07/25/21 07:30 Intake & Output 07/24/21 07/25/21 07/25/21 18:59 06:59 18:59 Intake Total 236 240 Output Total 400 Balance -164 240 Weight 83.007 kg Intake: Oral 236 240 Output: Urine 400 Other: Voiding Method Bedside Commode # Voids 3 - Labs CBC & Chem 7: 07/25/21 06:50 07/25/21 06:50 Labs: Abnormal Lab Results - Last 24 Hours (Table) 07/24/21 07/24/21 07/25/21 Range/Units 05:58 06:58 06:50 RBC 4.08 L (4.10-5.20) X 10*6/uL Hgb 11.9 L (12.0-15.0) g/dL MCHC 30.2 L 30.5 L (32.0-37.0) g/dL RDW 14.6 H (11.5-14.5) % Carbon Dioxide (20.0-27.5) mmol/L BUN 31.9 H (9.0-27.0) mg/dL Creatinine (0.6-1.5) mg/dL Est GFR (CKD-EPI)AfAm 36.7 L (60.0-200.0) Est GFR (CKD-EPI)NonAf 31.7 L (60.0-200.0) BUN/Creatinine Ratio 21.27 H (12.00-20.00) Ratio ALT (8-44) U/L Albumin 3.3 L (3.8-4.9) g/dL Albumin/Globulin Ratio 1.14 L (1.60-3.17) g/dL 07/25/21 Range/Units 06:50 RBC (4.10-5.20) X 10*6/uL Hgb (12.0-15.0) g/dL MCHC (32.0-37.0) g/dL RDW (11.5-14.5) % Carbon Dioxide 28.0 H (20.0-27.5) mmol/L BUN 35.6 H (9.0-27.0) mg/dL Creatinine 1.8 H (0.6-1.5) mg/dL Est GFR (CKD-EPI)AfAm 29.4 L (60.0-200.0) Est GFR (CKD-EPI)NonAf 25.4 L (60.0-200.0) BUN/Creatinine Ratio (12.00-20.00) Ratio ALT 6 L (8-44) U/L Albumin 3.4 L (3.8-4.9) g/dL Albumin/Globulin Ratio 1.13 L (1.60-3.17) g/dL Assessment and Plan Plan: Assessment: 1. Acute kidney injury mostly prerenal secondary to cardiorenal syndrome. Creatinine 1.8 today. 2. Volume overload. 3. Acute on chronic diastolic CHF with mild to moderate tricuspid regurgitation and pulmonary hypertension. 4. Chronic A. fib. 5. Coronary disease status post stent placement in the past. Plan: Change Lasix to 40 mg orally twice daily. Follow-up urinalysis. Check renal ultrasound. Continue to monitor renal function and urine output.
--- NOTE | 2021-07-25 10:53 | P.PN ---
Subjective Progress Note Date: 07/25/21 Rohini Hansen, is an 85-year-old female who presented to [facility] emergency room with a chief complaint of worsening shortness of breath She was evaluated in the emergency room vital examination on presentation revealed a temperature of 97.8 pulse 119 respiration 18 blood pressure 158/113 and pulse ox of 97% on room air Laboratory data revealed a white blood count of 7.4 hemoglobin 14.7 platelet count 196 INR 1.3 sodium 141 potassium 4.5 chloride 104 CO2 32 BUN 36 creatinine 1.55 troponin level less than 0.012 BNP 2780 COVID-19 PCR was negative Testing in the emergency room revealed chest x-ray done in the emergency room revealed cardiomegaly with venous congestion. Patient was started on IV Lasix in the emergency room. Patient was admitted to medical floor for further evaluation and treatment, cardiology consultation was requested On 07/24/2021 patient was seen and examined on the medical floor she is alert and oriented 3 in no apparent distress she is still complaining of shortness of breath and bilateral lower extremity tenderness to touch otherwise she denies a ny complaints there is no fever or chills no headache or dizziness no chest pain no cough no nausea or vomiting no abdominal pain no diarrhea no blood in the stools no burning with urination no frequency or urgency and no hematuria On 07/25/2019 to patient's lack and oriented 3. Ultrasound of kidneys have been ordered per nephrology services. Patient remains on IV antibiotics for cellulitis. This time patient denies chest pain or shortness breath. Patient denies nausea vomiting or diarrhea. Patient denies any urinary burning or frequency Objective - Vital Signs Vital signs: Vital Signs Temp 97.9 F 07/25/21 07:30 Pulse 54 L 07/25/21 07:30 Resp 16 07/25/21 07:30 BP 133/90 07/25/21 07:30 Pulse Ox 98 07/25/21 07:30 Intake & Output 07/24/21 07/25/21 07/25/21 18:59 06:59 18:59 Intake Total 236 240 Output Total 400 Balance -164 240 Weight 83.007 kg Intake: Oral 236 240 Output: Urine 400 Other: Voiding Method Bedside Commode # Voids 3 - Exam In general patient is alert and oriented x 3 in no distress HEENT head normocephalic and atraumatic Neck is supple no JVD no goiter no lymphadenopathy no carotid bruit Chest examination reveals scattered crackles in both lung bases no wheezing Cardiac exam reveals regular heart sounds S1 and S2 no gallops no murmurs Abdomen is soft nontender no organomegaly with normal bowel sounds Extremity exam reveals 2+ edema with bilateral pretibial erythema and multiple superficial ulcers Neurological examination reveals no gross focal deficits - Labs CBC & Chem 7: 07/25/21 06:50 07/25/21 06:50 Labs: Abnormal Lab Results - Last 24 Hours (Table) 07/24/21 07/24/21 07/25/21 Range/Units 05:58 06:58 06:50 RBC 4.08 L (4.10-5.20) X 10*6/uL Hgb 11.9 L (12.0-15.0) g/dL MCHC 30.2 L 30.5 L (32.0-37.0) g/dL RDW 14.6 H (11.5-14.5) % Carbon Dioxide (20.0-27.5) mmol/L BUN 31.9 H (9.0-27.0) mg/dL Creatinine (0.6-1.5) mg/dL Est GFR (CKD-EPI)AfAm 36.7 L (60.0-200.0) Est GFR (CKD-EPI)NonAf 31.7 L (60.0-200.0) BUN/Creatinine Ratio 21.27 H (12.00-20.00) Ratio ALT (8-44) U/L Albumin 3.3 L (3.8-4.9) g/dL Albumin/Globulin Ratio 1.14 L (1.60-3.17) g/dL 07/25/21 Range/Units 06:50 RBC (4.10-5.20) X 10*6/uL Hgb (12.0-15.0) g/dL MCHC (32.0-37.0) g/dL RDW (11.5-14.5) % Carbon Dioxide 28.0 H (20.0-27.5) mmol/L BUN 35.6 H (9.0-27.0) mg/dL Creatinine 1.8 H (0.6-1.5) mg/dL Est GFR (CKD-EPI)AfAm 29.4 L (60.0-200.0) Est GFR (CKD-EPI)NonAf 25.4 L (60.0-200.0) BUN/Creatinine Ratio (12.00-20.00) Ratio ALT 6 L (8-44) U/L Albumin 3.4 L (3.8-4.9) g/dL Albumin/Globulin Ratio 1.13 L (1.60-3.17) g/dL Assessment and Plan Plan: Acute exacerbation of congestive heart failure Acute kidney injury with elevated BUN and creatinine, creatinine today 1.55 it was 1.3 in December 2020 BUN 36 6 was 28 in December 2020 Underlying history of atrial fibrillation, maintained on Xarelto Underlying history of hypothyroidism Underlying history of hypertension Underlying history of hyperlipidemia maintained on Crestor Underlying history of coronary artery disease with previous history of angioplas ty and stent placement Underlying history of cardiac arrhythmia status post pacemaker placement Evidence of bilateral lower extremity cellulitis, will start on IV Ancef and monitor progress At this time patient was given IV Lasix in the emergency room Echocardiogram was ordered cardiology consultation requested Ultrasound of kidneys ordered per nephrology For DVT prophylaxis patient is maintained on Xarelto For GI prophylaxis Will add Protonix Will follow closely
--- NOTE | 2021-07-25 12:05 | US ---
EXAMINATION TYPE: US kidneys/renal and bladder DATE OF EXAM: 07/25/2021 / COMPARISON: US dated , and CT dated / CLINICAL HISTORY: bebeto. EXAM MEASUREMENTS: Right Kidney: 8.9 x 4.7 x 5.0 cm Left Kidney: 8.7 x 4.3 x 4.8 cm Right Kidney: No hydronephrosis or masses seen Left Kidney: two cysts seen lower/lateral, largest measures 1.9 x 1.8 x 1.9 cm. Bladder: wnl There is no evidence for hydronephrosis at this point in time. No nephrolithiasis is seen. No solid masses are identified. The urinary bladder is anechoic. IMPRESSION: Renal cysts left kidney
--- NOTE | 2021-07-25 12:19 | P.PN ---
Subjective HISTORY OF PRESENTING ILLNESS This is a pleasant 85-year-old -year-old female past medical history significant for coronary artery disease status post PCI SALUD to mid RCA in 2011, hypertension, dyslipidemia, former smoker, paroxysmal atrial fibrillation on Xarelto, sick sinus syndrome status post dual chamber pacemaker implantation in 10/2014, peripheral vascular disease status post stenting of the right and left common iliac arteries in 2017, non-ischemic cardiomyopathy with improvement in ejection fraction, hypothyroidism. She follows in the office with Dr. Teague. We have been asked to see in consultation for congestive heart failure. Patient presents emergency department with worsening symptoms of shortness of breath, bilateral lower extremity edema, and 14lb weight gain in the past 2 weeks. Patient started on IV Lasix on admission. 07/25/2021 Patient seen and examined at bedside, no acute distress. She denies any chest pain or shortness of breath. Her breathing has improved. She continues to have some edema, but her bilateral lower extremity edema has improved since admission. Device interrogation revealed episodes of non-sustained ventricular tachycardia and patient with episodes of in and out of atrial fibrillation Her echocardiogram revealed an EF of 5560%, mild mitral regurgitation, mild to moderate tricuspid regurgitation, mild to moderate pulmonary hypertension. Telemetry reviewed, patient a paced on the monitor. Maintained on Started on IV cefazolin for cellulitis of bilateral lower extremities, atorvastatin 40 mg nightly, Plavix 70 mg daily, metoprolol succinate 50 mg twice a day, Xarelto 15 mg nightly Labs, sodium 140, potassium 4.8, BUN 35, serum creatinine increased to 1.8. PHYSICAL EXAMINATION Blood pressure 133/90, heart rate 62, afebrile, saturation 98% on room air CONSTITUTIONAL: No apparent distress. HEENT: Neck Supple. No JVD. CHEST EXAMINATION: Lungs with mild crackles in the bases bilaterally to auscultation. HEART EXAMINATION: Regular rate and rhythm. S1, S2 heard. Ejection mumur noted at apex. No gallops or rub. ABDOMEN: Soft, nontender. Positive bowel sounds. EXTREMITIES: 2+ peripheral pulses, 2+ bilateral lower extremity edema and no calf tenderness. NEUROLOGIC EXAMINATION: Patient is awake, alert and oriented x3. ASSESSMENT Acute on chronic heart failure with preserved ejection fraction Coronary artery disease status post PCI SALUD to mid RCA in 2011 Sick sinus syndrome status post dual chamber pacemaker implantation in History of hypertension Dyslipidemia Former smoker Paroxysmal Atrial fibrillation on Xarelto Peripheral vascular disease status post prior stenting in 2017 Chronic kidney disease PLAN -Patient transitioned to PO lasix per nephrology -Monitor I/Os, daily weights, renal function and electrolytes tomorrow, check pro BNP tomorrow -Continue home statin, Plavix, metoprolol succinate, and Xarelto -Hopefully discharge in the next 24 hours. -Further recommendations as clinical course Nurse practitioner note has been reviewed by physician. Signing provider agrees with the documented findings, assessment, and plan of care. Objective - Vital Signs Vital signs: Vital Signs Temp 97.9 F 07/25/21 07:30 Pulse 54 L 07/25/21 07:30 Resp 16 07/25/21 07:30 BP 133/90 07/25/21 07:30 Pulse Ox 98 07/25/21 07:30 Intake & Output 07/24/21 07/25/21 07/25/21 18:59 06:59 18:59 Intake Total 236 240 Output Total 400 Balance -164 240 Weight 83.007 kg Intake: Oral 236 240 Output: Urine 400 Other: Voiding Method Bedside Commode # Voids 3 - Labs CBC & Chem 7: 07/25/21 06:50 07/25/21 06:50 Labs: Abnormal Lab Results - Last 24 Hours (Table) 07/24/21 07/25/21 07/25/21 Range/Units 06:58 06:50 06:50 MCHC 30.5 L (32.0-37.0) g/dL Carbon Dioxide 28.0 H (20.0-27.5) mmol/L BUN 31.9 H 35.6 H (9.0-27.0) mg/dL Creatinine 1.8 H (0.6-1.5) mg/dL Est GFR (CKD-EPI)AfAm 36.7 L 29.4 L (60.0-200.0) Est GFR (CKD-EPI)NonAf 31.7 L 25.4 L (60.0-200.0) BUN/Creatinine Ratio 21.27 H (12.00-20.00) Ratio ALT 6 L (8-44) U/L Albumin 3.3 L 3.4 L (3.8-4.9) g/dL Albumin/Globulin Ratio 1.14 L 1.13 L (1.60-3.17) g/dL
[2021-07-25] MEDS: FUROSEMIDE 40 MG TAB PO SCH (17:20)
[2021-07-25] MEDS: ATORVASTATIN 40 MG TAB PO SCH (22:06)
[2021-07-25] MEDS: RIVAROXABAN 15 MG TAB PO SCH (22:07)
[2021-07-26 01:38] LABS: Appearance,Urine Cloudy (Clear); Bacteria,Urine Many /hpf; Bilirubin,Urine Negative (Negative); Blood,Urine Trace (Negative); Color,Urine Light Yellow; Glucose,Urine (UA) Negative (Negative); Ketones,Urine 1+ (Negative); Leukocyte Esterase,Urine Large (Negative); Mucus,Urine Rare /hpf; Nitrite,Urine Negative (Negative); Protein,Urine Trace (Negative); RBC,Urine 2 /hpf (0-5); Specific Gravity,Urine 1.015 (1.001-1.035); Urobilinogen,Urine <2.0 mg/dL (<2.0); WBC,Urine >182 /hpf (0-5)
[2021-07-26] MEDS: LEVOTHYROXINE 50 MCG TAB PO SCH (06:11)
[2021-07-26 07:04] LABS: ALT <6 U/L (4-34); AST 22 U/L (14-36); African American GFR (CKD) 37 (>60 ml/min/1.73 sqM); Albumin 3.2 g/dL (3.5-5.0); Albumin/Globulin Ratio 0.9; Alkaline Phosphatase 76 U/L (38-126); Anion Gap 4 mmol/L; Blood Urea Nitrogen 40 mg/dL (7-17); Calcium 9.1 mg/dL (8.4-10.2); Carbon Dioxide 33 mmol/L (22-30); Chloride 103 mmol/L (98-107); Globulin 3.7 g/dL; Glucose 107 mg/dL (74-99); Magnesium 1.9 mg/dL (1.6-2.3); Non-African American GFR(CKD) 32 (>60 ml/min/1.73 sqM); Sodium 140 mmol/L (137-145); Total Bilirubin 0.8 mg/dL (0.2-1.3); Total Protein 6.9 g/dL (6.3-8.2)
[2021-07-26] MEDS: CHOLECALCIFEROL 25 MCG (1000 IU) TABLET PO SCH (08:52)
[2021-07-26] MEDS: CLOPIDOGREL 75 MG TAB PO SCH (08:52)
[2021-07-26] MEDS: POTASSIUM CHLORIDE ER 20 MEQ TAB.ER PO SCH (08:52)
[2021-07-26] MEDS: METOPROLOL SUCCINATE (ER) 50 MG TAB.ER.24H PO SCH ×2 (08:52→20:31)
[2021-07-26] MEDS: FUROSEMIDE 40 MG TAB PO SCH ×2 (08:52→15:02)
[2021-07-26] MEDS: CYANOCOBALAMIN 500 MCG TAB PO SCH (08:52)
[2021-07-26] MEDS: HYDROcodone/APAP 7.5-325MG 1 EACH TAB PO PRN ×3 (08:53→20:30)
[2021-07-26 08:55] LABS: Basophils # (A) 0.02 X 10*3/uL (0.00-0.10); Basophils % (A) 0.3 %; Eosinophils # (A) 0.26 X 10*3/uL (0.04-0.35); Eosinophils % (A) 3.8 %; HCT 42.1 % (37.2-46.3); HGB 13.1 g/dL (12.0-15.0); Immature Grans, Automated 0.1 %; Lymphocytes # (A) 2.42 X 10*3/uL (0.90-5.00); Lymphocytes % (A) 35.8 %; MCH 29.2 pg (27.0-32.0); MCHC 31.1 g/dL (32.0-37.0); MCV 93.8 fL (80.0-97.0); Mean Platelet Volume 10.7 fL (9.5-12.2); Monocytes # (A) 0.85 X 10*3/uL (0.20-1.00); Monocytes % (A) 12.6 %; NRBC Per 100 WBC 0 /100 WBCS (0.0-0.0); Neutrophils % (A) 47.4 %; Platelet Count 184 X 10*3/uL (140-440); RBC 4.49 X 10*6/uL (4.10-5.20); RDW 14.5 % (11.5-14.5); WBC 6.76 X 10*3/uL (4.50-10.00)
[2021-07-26] MEDS: FAMOTIDINE 20 MG TAB PO SCH (08:55)
--- NOTE | 2021-07-26 12:04 | P.PN ---
Subjective Progress Note Date: 07/26/21 Rohini Hansen, is an 85-year-old female who presented to [facility] emergency room with a chief complaint of worsening shortness of breath She was evaluated in the emergency room vital examination on presentation revealed a temperature of 97.8 pulse 119 respiration 18 blood pressure 158/113 and pulse ox of 97% on room air Laboratory data revealed a white blood count of 7.4 hemoglobin 14.7 platelet count 196 INR 1.3 sodium 141 potassium 4.5 chloride 104 CO2 32 BUN 36 creatinine 1.55 troponin level less than 0.012 BNP 2780 COVID-19 PCR was negative Testing in the emergency room revealed chest x-ray done in the emergency room revealed cardiomegaly with venous congestion. Patient was started on IV Lasix in the emergency room. Patient was admitted to medical floor for further evaluation and treatment, cardiology consultation was requested On 07/24/2021 patient was seen and examined on the medical floor she is alert and oriented 3 in no apparent distress she is still complaining of shortness of breath and bilateral lower extremity tenderness to touch otherwise she denies a ny complaints there is no fever or chills no headache or dizziness no chest pain no cough no nausea or vomiting no abdominal pain no diarrhea no blood in the stools no burning with urination no frequency or urgency and no hematuria On to patient's alert and oriented 3. Ultrasound of kidneys have been ordered per nephrology services. Patient remains on IV antibiotics for cellulitis. This time patient denies chest pain or shortness breath. Patient denies nausea vomiting or diarrhea. Patient denies any urinary burning or frequency On 07/26/2021 patient is alert and oriented 3. Patient has been transitioned to by mouth Lasix. Patient also positive for urinary tract infection. Patient remains on IV urine culture has been ordered. Cardiology and nephrology services are following. Current vitals temp 97.5, heart rate 94, blood pressure 132/73 patient satting 95% on room air. Patient reports she does not feel ready to be DC'd home. Anticipate discharge in the next 24-48 hours Objective - Vital Signs Vital signs: Vital Signs Temp 97.5 F L 07/26/21 07:20 Pulse 94 07/26/21 09:00 Resp 16 07/26/21 07:20 BP 132/73 07/26/21 09:00 Pulse Ox 95 07/26/21 07:20 Intake & Output 07/25/21 07/26/21 07/26/21 18:59 06:59 18:59 Intake Total 358 200 Output Total 150 500 Balance 208 -500 200 Weight 61.5 kg Intake: Oral 358 200 Output: Urine 150 500 Other: Voiding Method Bedside Commode Bedside Commode # Voids 2 - Exam In general patient is alert and oriented x 3 in no distress HEENT head normocephalic and atraumatic Neck is supple no JVD no goiter no lymphadenopathy no carotid bruit Chest examination reveals scattered crackles in both lung bases no wheezing Cardiac exam reveals regular heart sounds S1 and S2 no gallops no murmurs Abdomen is soft nontender no organomegaly with normal bowel sounds Extremity exam reveals 2+ edema with bilateral pretibial erythema and multiple superficial ulcers Neurological examination reveals no gross focal deficits - Labs CBC & Chem 7: 07/26/21 06:22 07/26/21 06:22 Labs: Abnormal Lab Results - Last 24 Hours (Table) 07/25/21 07/26/21 07/26/21 Range/Units 21:30 06:22 06:22 MCHC 31.1 L (32.0-37.0) g/dL Carbon Dioxide 33 H (22-30) mmol/L BUN 40 H (7-17) mg/dL Creatinine 1.48 H (0.52-1.04) mg/dL Glucose 107 H (74-99) mg/dL Albumin 3.2 L (3.5-5.0) g/dL Urine Appearance Cloudy H (Clear) Urine Protein Trace H (Negative) Urine Ketones 1+ H (Negative) Urine Blood Trace H (Negative) Ur Leukocyte Esterase Large H (Negative) Urine WBC >182 H (0-5) /hpf Urine Bacteria Many H (None) /hpf Urine Mucus Rare H (None) /hpf Assessment and Plan Plan: Acute exacerbation of congestive heart failure Acute kidney injury with elevated BUN and creatinine, creatinine today 1.55 it was 1.3 in December 2020 BUN 36 6 was 28 in December 2020 Underlying history of atrial fibrillation, maintained on Xarelto Underlying history of hypothyroidism Underlying history of hypertension Underlying history of hyperlipidemia maintained on Crestor Underlying history of coronary artery disease with previous history of angioplasty and stent placement Underlying history of cardiac arrhythmia status post pacemaker placement Evidence of bilateral lower extremity cellulitis, will start on IV Ancef and monitor progress Urinary tract infection. Patient remains on IV Kefzol. Urine culture ordered At this time patient was given IV Lasix in the emergency room Echocardiogram was ordered cardiology consultation requested Ultrasound of kidneys ordered per nephrology For DVT prophylaxis patient is maintained on Xarelto For GI prophylaxis Will add Protonix Will follow closely
--- NOTE | 2021-07-26 12:16 | P.PN ---
Subjective HISTORY OF PRESENTING ILLNESS This is a pleasant 85-year-old -year-old female past medical history significant for coronary artery disease status post PCI SALUD to mid RCA in 2011, hypertension, dyslipidemia, former smoker, paroxysmal atrial fibrillation on Xarelto, sick sinus syndrome status post dual chamber pacemaker implantation in 10/2014, peripheral vascular disease status post stenting of the right and left common iliac arteries in 2016, non-ischemic cardiomyopathy with improvement in ejection fraction, hypothyroidism. She follows in the office with Dr. Teague. We have been asked to see in consultation for congestive heart failure. Patient presents emergency department with worsening symptoms of shortness of breath, bilateral lower extremity edema, and 14lb weight gain in the past 2 weeks. Patient started on IV Lasix on admission. 07/26/2021 Pt seen and examined sitting up eating breakfast in no acute distress. She is stable at rest but complains of shortness of breath with any activity. She is on PO lasix per nephrology. She is urinating a lot according to her. Maintaining a negative fluid balance. She has no chest pain. Blood pressure 124/64 heart rate 58 afebrile maintaining oxygen saturation on room air. PHYSICAL EXAMINATION CONSTITUTIONAL: No apparent distress. HEENT: Neck Supple. No JVD. CHEST EXAMINATION: Lungs with mild crackles in the bases bilaterally to auscultation. HEART EXAMINATION: Regular rate and rhythm. S1, S2 heard. Ejection mumur noted at apex. No gallops or rub. EXTREMITIES: 2+ peripheral pulses, 1+ bilateral lower extremity edema and no calf tenderness. ASSESSMENT Acute on chronic heart failure with preserved ejection fraction Coronary artery disease status post PCI SALUD to mid RCA in 2011 Sick sinus syndrome status post dual chamber pacemaker implantation in History of hypertension Dyslipidemia Former smoker Paroxysmal Atrial fibrillation on Xarelto Peripheral vascular disease status post prior stenting in 2017 Chronic kidney disease PLAN Continue current medical regimen, ongoing observation for another 24 hours. Further recommendations to follow. Nurse practitioner note has been reviewed by physician. Signing provider agrees with the documented findings, assessment, and plan of care. Objective - Vital Signs Vital signs: Vital Signs Temp 97.5 F L 07/26/21 07:20 Pulse 58 L 07/26/21 07:20 Resp 16 07/26/21 07:20 BP 124/64 07/26/21 07:20 Pulse Ox 95 07/26/21 07:20 Intake & Output 07/25/21 07/26/21 07/26/21 18:59 06:59 18:59 Intake Total 358 200 Output Total 150 500 Balance 208 -500 200 Weight 61.5 kg Intake: Oral 358 200 Output: Urine 150 500 Other: Voiding Method Bedside Commode # Voids 2 - Labs CBC & Chem 7: 07/26/21 06:22 07/26/21 06:22 Labs: Abnormal Lab Results - Last 24 Hours (Table) 07/25/21 07/26/21 07/26/21 Range/Units 21:30 06:22 06:22 MCHC 31.1 L (32.0-37.0) g/dL Carbon Dioxide 33 H (22-30) mmol/L BUN 40 H (7-17) mg/dL Creatinine 1.48 H (0.52-1.04) mg/dL Glucose 107 H (74-99) mg/dL Albumin 3.2 L (3.5-5.0) g/dL Urine Appearance Cloudy H (Clear) Urine Protein Trace H (Negative) Urine Ketones 1+ H (Negative) Urine Blood Trace H (Negative) Ur Leukocyte Esterase Large H (Negative) Urine WBC >182 H (0-5) /hpf Urine Bacteria Many H (None) /hpf Urine Mucus Rare H (None) /hpf
--- NOTE | 2021-07-26 15:13 | P.PN ---
Subjective Progress Note Date: 07/26/21 Follow-up for acute kidney injury. Objective - Vital Signs Vital signs: Vital Signs Temp 97.5 F L 07/26/21 07:20 Pulse 94 07/26/21 09:00 Resp 16 07/26/21 07:20 BP 132/73 07/26/21 09:00 Pulse Ox 95 07/26/21 07:20 Intake & Output 07/25/21 07/26/21 07/26/21 18:59 06:59 18:59 Intake Total 358 200 Output Total 150 500 Balance 208 -500 200 Weight 61.5 kg Intake: Oral 358 200 Output: Urine 150 500 Other: Voiding Method Bedside Commode Bedside Commode # Voids 2 - Exam No acute distress S1-S2 heard Lungs clear No edema - Labs CBC & Chem 7: 07/26/21 06:22 07/26/21 06:22 Labs: Abnormal Lab Results - Last 24 Hours (Table) 07/25/21 07/26/21 07/26/21 Range/Units 21:30 06:22 06:22 MCHC 31.1 L (32.0-37.0) g/dL Carbon Dioxide 33 H (22-30) mmol/L BUN 40 H (7-17) mg/dL Creatinine 1.48 H (0.52-1.04) mg/dL Glucose 107 H (74-99) mg/dL Albumin 3.2 L (3.5-5.0) g/dL Urine Appearance Cloudy H (Clear) Urine Protein Trace H (Negative) Urine Ketones 1+ H (Negative) Urine Blood Trace H (Negative) Ur Leukocyte Esterase Large H (Negative) Urine WBC >182 H (0-5) /hpf Urine Bacteria Many H (None) /hpf Urine Mucus Rare H (None) /hpf Assessment and Plan Assessment: #1 acute kidney injury secondary to cardiorenal syndrome. -Baseline creatinine 1.3 MG per DL. #2 volume overload #3 acute on chronic diastolic heart failure #4 chronic atrial fibrillation #5 coronary artery disease status post cardiac stent #6 kidney disease stage III with a baseline creatinine of 1.3 Plan: #1 renal function stable and improving. #2 continue with Lasix 40 mg oral twice a day. #3 renal ultrasound no hydronephrosis
[2021-07-26] MEDS: ATORVASTATIN 40 MG TAB PO SCH (20:31)
[2021-07-26] MEDS: RIVAROXABAN 15 MG TAB PO SCH (20:31)
[2021-07-27] MEDS: HYDROcodone/APAP 7.5-325MG 1 EACH TAB PO PRN ×4 (03:05→21:41)
[2021-07-27] MEDS: LEVOTHYROXINE 50 MCG TAB PO SCH (05:46)
[2021-07-27] MEDS: POTASSIUM CHLORIDE ER 20 MEQ TAB.ER PO SCH (07:56)
[2021-07-27] MEDS: CHOLECALCIFEROL 25 MCG (1000 IU) TABLET PO SCH (07:56)
[2021-07-27] MEDS: CYANOCOBALAMIN 500 MCG TAB PO SCH (07:57)
[2021-07-27] MEDS: CLOPIDOGREL 75 MG TAB PO SCH (07:57)
[2021-07-27] MEDS: METOPROLOL SUCCINATE (ER) 50 MG TAB.ER.24H PO SCH ×2 (07:57→21:37)
[2021-07-27] MEDS: FAMOTIDINE 20 MG TAB PO SCH (07:57)
[2021-07-27] MEDS: FUROSEMIDE 40 MG TAB PO SCH (07:57)
[2021-07-27 09:01] LABS: Basophils # (A) 0.03 X 10*3/uL (0.00-0.10); Basophils % (A) 0.5 %; Eosinophils # (A) 0.19 X 10*3/uL (0.04-0.35); HCT 43.3 % (37.2-46.3); Immature Grans, Automated 0.2 %; Lymphocytes # (A) 2.46 X 10*3/uL (0.90-5.00); Lymphocytes % (A) 39.2 %; MCH 28.6 pg (27.0-32.0); MCV 95.4 fL (80.0-97.0); Mean Platelet Volume 10.7 fL (9.5-12.2); Monocytes # (A) 0.93 X 10*3/uL (0.20-1.00); Monocytes % (A) 14.8 %; NRBC Per 100 WBC 0 /100 WBCS (0.0-0.0); Neutrophils # (A) 2.65 X 10*3/uL (1.80-7.70); Neutrophils % (A) 42.3 %; Platelet Count 183 X 10*3/uL (140-440); RBC 4.54 X 10*6/uL (4.10-5.20); RDW 14.6 % (11.5-14.5); WBC 6.27 X 10*3/uL (4.50-10.00)
[2021-07-27 09:13] LABS: ALT <5 U/L (8-44); AST 23 U/L (13-35); African American GFR (CKD) 33.9 (60.0-200.0); Albumin 3.3 g/dL (3.8-4.9); Albumin/Globulin Ratio 1.06 (1.60-3.17); Alkaline Phosphatase 68 U/L (41-126); Blood Urea Nitrogen 36.8 mg/dL (9.0-27.0); Calcium 9.2 mg/dL (8.7-10.3); Carbon Dioxide 28.6 mmol/L (20.0-27.5); Chloride 102 mmol/L (96-109); Globulin 3.1 g/dL (1.6-3.3); Glucose 105 mg/dL (70-110); Non-African American GFR(CKD) 29.3 (60.0-200.0); Potassium 4.2 mmol/L (3.5-5.5); Sodium 141 mmol/L (135-145); Total Protein 6.4 g/dL (6.2-8.2)
--- NOTE | 2021-07-27 10:34 | P.PN ---
Subjective Progress Note Date: 07/27/21 Rohini Hansen, is an 85-year-old female who presented to [facility] emergency room with a chief complaint of worsening shortness of breath She was evaluated in the emergency room vital examination on presentation revealed a temperature of 97.8 pulse 119 respiration 18 blood pressure 158/113 and pulse ox of 97% on room air Laboratory data revealed a white blood count of 7.4 hemoglobin 14.7 platelet count 196 INR 1.3 sodium 141 potassium 4.5 chloride 104 CO2 32 BUN 36 creatinine 1.55 troponin level less than 0.012 BNP 2780 COVID-19 PCR was negative Testing in the emergency room revealed chest x-ray done in the emergency room revealed cardiomegaly with venous congestion. Patient was started on IV Lasix in the emergency room. Patient was admitted to medical floor for further evaluation and treatment, cardiology consultation was requested On 07/24/2021 patient was seen and examined on the medical floor she is alert and oriented 3 in no apparent distress she is still complaining of shortness of breath and bilateral lower extremity tenderness to touch otherwise she denies a ny complaints there is no fever or chills no headache or dizziness no chest pain no cough no nausea or vomiting no abdominal pain no diarrhea no blood in the stools no burning with urination no frequency or urgency and no hematuria On to patient's alert and oriented 3. Ultrasound of kidneys have been ordered per nephrology services. Patient remains on IV antibiotics for cellulitis. This time patient denies chest pain or shortness breath. Patient denies nausea vomiting or diarrhea. Patient denies any urinary burning or frequency On 07/26/2021 patient is alert and oriented 3. Patient has been transitioned to by mouth Lasix. Patient also positive for urinary tract infection. Patient remains on IV urine culture has been ordered. Cardiology and nephrology services are following. Current vitals temp 97.5, heart rate 94, blood pressure 132/73 patient satting 95% on room air. Patient reports she does not feel ready to be DC'd home. Anticipate discharge in the next 24-48 hours On 07/27/2021 patient was seen and examined on the medical floor she is alert and oriented 3 in no apparent distress there is no fever or chills no headache or dizziness no chest pain, her shortness of breath has improved, there is no cough no nausea or vomiting, no abdominal pain no diarrhea no blood in the stools no burning with urination no frequency or urgency and no hematuria, today patient is complaining of worsening pain in the right upper thigh and groin area. Objective - Vital Signs Vital signs: Vital Signs Temp 97.6 F 07/27/21 07:15 Pulse 90 07/27/21 07:15 Resp 17 07/27/21 07:15 BP 97/66 07/27/21 07:15 Pulse Ox 95 07/27/21 07:15 Intake & Output 07/26/21 07/27/21 07/27/21 18:59 06:59 18:59 Intake Total 318 350 100 Output Total 650 Balance 318 -300 100 Weight 63.1 kg Intake: Oral 318 350 100 Output: Urine 650 Other: Voiding Method Bedside Commode Bedside Commode - Exam In general patient is alert and oriented x 3 in no distress HEENT head normocephalic and atraumatic Neck is supple no JVD no goiter no lymphadenopathy no carotid bruit Chest examination reveals scattered crackles in both lung bases no wheezing Cardiac exam reveals regular heart sounds S1 and S2 no gallops no murmurs Abdomen is soft nontender no organomegaly with normal bowel sounds Extremity exam reveals 2+ edema with bilateral pretibial erythema and multiple superficial ulcers Neurological examination reveals no gross focal deficits - Labs CBC & Chem 7: 07/27/21 05:58 07/27/21 05:58 Labs: Abnormal Lab Results - Last 24 Hours (Table) 07/27/21 07/27/21 Range/Units 05:58 05:58 MCHC 30.0 L (32.0-37.0) g/dL RDW 14.6 H (11.5-14.5) % Carbon Dioxide 28.6 H (20.0-27.5) mmol/L BUN 36.8 H (9.0-27.0) mg/dL Creatinine 1.6 H (0.6-1.5) mg/dL Est GFR (CKD-EPI)AfAm 33.9 L (60.0-200.0) Est GFR (CKD-EPI)NonAf 29.3 L (60.0-200.0) BUN/Creatinine Ratio 23.00 H (12.00-20.00) Ratio ALT <5 L (8-44) U/L Albumin 3.3 L (3.8-4.9) g/dL Albumin/Globulin Ratio 1.06 L (1.60-3.17) g/dL Assessment and Plan Plan: Acute exacerbation of diastolic congestive heart failure Acute kidney injury with elevated BUN and creatinine, creatinine today 1.55 it was 1.3 in December 2020 BUN 36 6 was 28 in December 2020 Underlying history of atrial fibrillation, maintained on Xarelto Underlying history of hypothyroidism Underlying history of hypertension Underlying history of hyperlipidemia maintained on Crestor Underlying history of coronary artery disease with previous history of angioplasty and stent placement Underlying history of cardiac arrhythmia status post pacemaker placement Evidence of bilateral lower extremity cellulitis, will start on IV Ancef and monitor progress Urinary tract infection. Patient remains on IV Kefzol. Urine culture ordered Right groin and upper thigh pain Will check right venous Doppler ruled out DVT, will check right hip x-ray At this time patient was given IV Lasix in the emergency room Echocardiogram was ordered cardiology consultation requested Ultrasound of kidneys ordered per nephrology For DVT prophylaxis patient is maintained on Xarelto For GI prophylaxis Will add Protonix Will follow closely
--- NOTE | 2021-07-27 12:09 | P.PN ---
Subjective HISTORY OF PRESENTING ILLNESS This is a pleasant 85-year-old -year-old female past medical history significant for coronary artery disease status post PCI SALUD to mid RCA in 2011, hypertension, dyslipidemia, former smoker, paroxysmal atrial fibrillation on Xarelto, sick sinus syndrome status post dual chamber pacemaker implantation in 10/2014, peripheral vascular disease status post stenting of the right and left common iliac arteries in 2016, non-ischemic cardiomyopathy with improvement in ejection fraction, hypothyroidism. She follows in the office with Dr. Teague. We have been asked to see in consultation for congestive heart failure. Patient presents emergency department with worsening symptoms of shortness of breath, bilateral lower extremity edema, and 14lb weight gain in the past 2 weeks. Patient started on IV Lasix on admission. 07/26/2021 Pt seen and examined laying flat in bed in no acute distress. She continues to have pain in her legs and feels short of breath. Cr today is 1.6. She is still on oral lasix per nephrology. Blood pressure 97/66 heart rate 90. PHYSICAL EXAMINATION CONSTITUTIONAL: No apparent distress. HEENT: Neck Supple. No JVD. CHEST EXAMINATION: Lungs with mild crackles in the bases bilaterally to auscultation. HEART EXAMINATION: Regular rate and rhythm. S1, S2 heard. Ejection mumur noted at apex. No gallops or rub. EXTREMITIES: 2+ peripheral pulses, 1+ bilateral lower extremity edema and no calf tenderness. ASSESSMENT Acute on chronic heart failure with preserved ejection fraction Coronary artery disease status post PCI SALUD to mid RCA in 2011 Sick sinus syndrome status post dual chamber pacemaker implantation in History of hypertension Dyslipidemia Former smoker Paroxysmal Atrial fibrillation on Xarelto Peripheral vascular disease status post prior stenting in 2017 Chronic kidney disease PLAN Diuretics per nephrology. Clinically she is stable from a cardiac perspective. Nurse practitioner note has been reviewed by physician. Signing provider agrees with the documented findings, assessment, and plan of care. Objective - Vital Signs Vital signs: Vital Signs Temp 97.6 F 07/27/21 07:15 Pulse 90 07/27/21 07:15 Resp 17 07/27/21 07:15 BP 97/66 07/27/21 07:15 Pulse Ox 95 07/27/21 07:15 Intake & Output 07/26/21 07/27/21 07/27/21 18:59 06:59 18:59 Intake Total 318 350 100 Output Total 650 Balance 318 -300 100 Weight 63.1 kg Intake: Oral 318 350 100 Output: Urine 650 Other: Voiding Method Bedside Commode Bedside Commode - Labs CBC & Chem 7: 07/27/21 05:58 07/27/21 05:58 Labs: Abnormal Lab Results - Last 24 Hours (Table) 07/27/21 07/27/21 Range/Units 05:58 05:58 MCHC 30.0 L (32.0-37.0) g/dL RDW 14.6 H (11.5-14.5) % Carbon Dioxide 28.6 H (20.0-27.5) mmol/L BUN 36.8 H (9.0-27.0) mg/dL Creatinine 1.6 H (0.6-1.5) mg/dL Est GFR (CKD-EPI)AfAm 33.9 L (60.0-200.0) Est GFR (CKD-EPI)NonAf 29.3 L (60.0-200.0) BUN/Creatinine Ratio 23.00 H (12.00-20.00) Ratio ALT <5 L (8-44) U/L Albumin 3.3 L (3.8-4.9) g/dL Albumin/Globulin Ratio 1.06 L (1.60-3.17) g/dL
--- NOTE | 2021-07-27 12:13 | P.PN ---
Subjective Progress Note Date: 07/27/21 Follow-up for acute kidney injury. Denies any nausea vomiting diarrhea. Objective - Vital Signs Vital signs: Vital Signs Temp 97.6 F 07/27/21 07:15 Pulse 90 07/27/21 07:15 Resp 17 07/27/21 07:15 BP 97/66 07/27/21 07:15 Pulse Ox 95 07/27/21 07:15 Intake & Output 07/26/21 07/27/21 07/27/21 18:59 06:59 18:59 Intake Total 318 350 100 Output Total 650 Balance 318 -300 100 Weight 63.1 kg Intake: Oral 318 350 100 Output: Urine 650 Other: Voiding Method Bedside Commode Bedside Commode - Exam No acute distress S1-S2 heard Lungs clear No edema - Labs CBC & Chem 7: 07/27/21 05:58 07/27/21 05:58 Labs: Abnormal Lab Results - Last 24 Hours (Table) 07/27/21 07/27/21 Range/Units 05:58 05:58 MCHC 30.0 L (32.0-37.0) g/dL RDW 14.6 H (11.5-14.5) % Carbon Dioxide 28.6 H (20.0-27.5) mmol/L BUN 36.8 H (9.0-27.0) mg/dL Creatinine 1.6 H (0.6-1.5) mg/dL Est GFR (CKD-EPI)AfAm 33.9 L (60.0-200.0) Est GFR (CKD-EPI)NonAf 29.3 L (60.0-200.0) BUN/Creatinine Ratio 23.00 H (12.00-20.00) Ratio ALT <5 L (8-44) U/L Albumin 3.3 L (3.8-4.9) g/dL Albumin/Globulin Ratio 1.06 L (1.60-3.17) g/dL Assessment and Plan Assessment: #1 acute kidney injury secondary to cardiorenal syndrome. -Baseline creatinine 1.3 MG per DL. #2 volume overload, improved with diuretics #3 acute on chronic diastolic heart failure #4 chronic atrial fibrillation #5 coronary artery disease status post cardiac stent #6 kidney disease stage III with a baseline creatinine of 1.3 Plan: #1 slight creep in creatinine, suspect overdiuresis. #2 on Lasix 40 mg oral twice a day. Change to torsemide 20 mg by mouth daily from tomorrow. #3 renal ultrasound no hydronephrosis #4 stable from nephrology for discharge tomorrow.
--- NOTE | 2021-07-27 14:10 | US ---
EXAMINATION TYPE: US venous doppler duplex LE RT DATE OF EXAM: 07/27/2021 11:35 AM COMPARISON: NONE CLINICAL HISTORY: right groin and thigh pain. rt groin pain SIDE PERFORMED: Right TECHNIQUE: The lower extremity deep venous system is examined utilizing real time linear array sonog jaqui with graded compression, doppler sonography and color-flow sonography. VESSELS IMAGED: Common Femoral Vein Deep Femoral Vein Greater Saphenous Vein * Femoral Vein Popliteal Vein Small Saphenous Vein * Proximal Calf Veins (* superficial vessels) There is normal flow, compressibility, vascular waveforms. Right Leg: Negative for DVT IMPRESSION: No evident deep venous thrombosis within the right lower extremity from the level the kne e centrally
--- NOTE | 2021-07-27 14:16 | XR ---
Right hip HISTORY: Pain 2 views the right hip correlated prior exam 01/13/2021, CT 01/15/2021 There is overlying artifact. No interval change. Vascular calcifications noted incidentally. IMPRESSION: Osteoarthritis is advanced age as described in previous reports.
[2021-07-27] MEDS: RIVAROXABAN 15 MG TAB PO SCH (21:37)
[2021-07-27] MEDS: ATORVASTATIN 40 MG TAB PO SCH (21:37)
[2021-07-28 02:56] VITALS: RESP 18
[2021-07-28] MEDS: LEVOTHYROXINE 50 MCG TAB PO SCH (05:44)
[2021-07-28 07:21] VITALS: BP 114/69; PULSE 71; TEMP 97.6
[2021-07-28] MEDS: METOPROLOL SUCCINATE (ER) 50 MG TAB.ER.24H PO SCH (08:11)
[2021-07-28] MEDS: POTASSIUM CHLORIDE ER 20 MEQ TAB.ER PO SCH (08:11)
[2021-07-28] MEDS: CYANOCOBALAMIN 500 MCG TAB PO SCH (08:11)
[2021-07-28] MEDS: CLOPIDOGREL 75 MG TAB PO SCH (08:11)
[2021-07-28] MEDS: CHOLECALCIFEROL 25 MCG (1000 IU) TABLET PO SCH (08:11)
[2021-07-28] MEDS: FAMOTIDINE 20 MG TAB PO SCH (08:11)
[2021-07-28] MEDS: HYDROcodone/APAP 7.5-325MG 1 EACH TAB PO PRN (08:19)
[2021-07-28] MEDS ORDERED: TORSEMIDE 20 MG TAB PO SCH (09:00)
[2021-07-28 09:53] LABS: Basophils # (A) 0.02 X 10*3/uL (0.00-0.10); Basophils % (A) 0.3 %; Eosinophils # (A) 0.21 X 10*3/uL (0.04-0.35); Eosinophils % (A) 3.5 %; HCT 38.9 % (37.2-46.3); HGB 11.8 g/dL (12.0-15.0); Immature Grans, Automated 0.2 %; Lymphocytes # (A) 2.38 X 10*3/uL (0.90-5.00); Lymphocytes % (A) 39.9 %; MCH 28.6 pg (27.0-32.0); MCHC 30.3 g/dL (32.0-37.0); MCV 94.2 fL (80.0-97.0); Mean Platelet Volume 10.4 fL (9.5-12.2); Monocytes # (A) 0.76 X 10*3/uL (0.20-1.00); Monocytes % (A) 12.8 %; NRBC Per 100 WBC 0 /100 WBCS (0.0-0.0); Neutrophils # (A) 2.58 X 10*3/uL (1.80-7.70); Neutrophils % (A) 43.3 %; Platelet Count 165 X 10*3/uL (140-440); RBC 4.13 X 10*6/uL (4.10-5.20); RDW 14.6 % (11.5-14.5); WBC 5.96 X 10*3/uL (4.50-10.00)
--- NOTE | 2021-07-28 10:03 | P.PN ---
Subjective Patient is seen in follow-up for acute kidney injury on chronic kidney disease. Renal function fairly stable with creatinine 1.6 yesterday. On room air. Blood pressure stable. Good urine output. No vomiting or diarrhea. Vital signs are stable. HEENT: Head exam is unremarkable. LUNGS: Breath sounds decreased. HEART: Rate and Rhythm are regular. ABDOMEN: Soft, no distention. EXTREMITITES: Chronic changes noted. Trace edema. Objective - Vital Signs Vital signs: Vital Signs Temp 97.6 F 07/28/21 07:20 Pulse 71 07/28/21 07:20 Resp 18 07/28/21 07:20 BP 114/69 07/28/21 07:20 Pulse Ox 97 07/28/21 07:20 Intake & Output 07/27/21 07/28/21 07/28/21 18:59 06:59 18:59 Intake Total 300 Balance 300 Weight 80 kg Intake: Oral 300 Other: # Voids 2 1 - Labs CBC & Chem 7: 07/28/21 07:01 07/27/21 05:58 Labs: Abnormal Lab Results - Last 24 Hours (Table) 07/28/21 Range/Units 07:01 Hgb 11.8 L (12.0-15.0) g/dL MCHC 30.3 L (32.0-37.0) g/dL RDW 14.6 H (11.5-14.5) % Microbiology - Last 24 Hours (Table) 07/26/21 19:30 Urine Culture - Preliminary Urine,Clean Catch Assessment and Plan Plan: Assessment: 1. Acute kidney injury mostly prerenal secondary to cardiorenal syndrome. Creatinine 1. 6 yesterday. Trace protein on UA. Kidneys are atrophic but no hydronephrosis. 2. Volume overload. Improved with diuresis. 3. Acute on chronic diastolic CHF with mild to moderate tricuspid regurgitation and pulmonary hypertension. 4. Chronic A. fib. 5. Coronary disease status post stent placement in the past. Plan: Maintain oral diuretics. Continue to monitor renal function and urine output. Patient will need to follow-up outpatient 1 week post discharge. Repeat BMP and magnesium level 2-3 days postdischarge.
[2021-07-28 10:28] LABS: African American GFR (CKD) 31.5 (60.0-200.0); Albumin 3.4 g/dL (3.8-4.9); Albumin/Globulin Ratio 1.17 (1.60-3.17); Anion Gap 9.7 mmol/L (10.00-18.00); BUN/Creat Ratio 22.71 Ratio (12.00-20.00); Blood Urea Nitrogen 38.6 mg/dL (9.0-27.0); Calcium 8.9 mg/dL (8.7-10.3); Carbon Dioxide 27.3 mmol/L (20.0-27.5); Globulin 2.9 g/dL (1.6-3.3); Non-African American GFR(CKD) 27.2 (60.0-200.0); Potassium 4.2 mmol/L (3.5-5.5); Total Bilirubin 0.4 mg/dL (0.30-1.20); Total Protein 6.3 g/dL (6.2-8.2)
--- NOTE | 2021-07-28 13:32 | P.DS ---
Providers Date of admission: 07/25/21 08:10 Expected date of discharge: 07/28/21 Attending physician: Lei Wayne Consults: 07/23/21 16:21 Consult Physician Routine Consulting Provider: Chris Goss Consult Reason/Comments: chf Do you want consulting provider notified?: Yes 07/23/21 17:17 Consult Physician Routine Consulting Provider: Dorys Ivory Consult Reason/Comments: BONIFACIO Do you want consulting provider notified?: Yes Primary care physician: Bethany Calle Hospital Course: Diagnosis on discharge: Acute exacerbation of diastolic congestive heart failure Acute kidney injury with elevated BUN and creatinine, creatinine today 1.55 it was 1.3 in December 2020 BUN 36 6 was 28 in December 2020 Underlying history of atrial fibrillation, maintained on Xarelto Underlying history of hypothyroidism Underlying history of hypertension Underlying history of hyperlipidemia maintained on Crestor Underlying history of coronary artery disease with previous history of angioplasty and stent placement Underlying history of cardiac arrhythmia status post pacemaker placement Evidence of bilateral lower extremity cellulitis, will start on IV Ancef and monitor progress Urinary tract infection. Patient remains on IV Kefzol. Urine culture ordered Right groin and upper thigh pain Will check right venous Doppler ruled out DVT, will check right hip x-ray Hospital course: Rohini Hansen, is an 85-year-old female who presented to [facility] emergency room with a chief complaint of worsening shortness of breath She was evaluated in the emergency room vital examination on presentation revealed a temperature of 97.8 pulse 119 respiration 18 blood pressure 158/113 and pulse ox of 97% on room air Laboratory data revealed a white blood count of 7.4 hemoglobin 14.7 platelet count 196 INR 1.3 sodium 141 potassium 4.5 chloride 104 CO2 32 BUN 36 creatinine 1.55 troponin level less than 0.012 BNP 2780 COVID-19 PCR was negative Testing in the emergency room revealed chest x-ray done in the emergency room revealed cardiomegaly with venous congestion. Patient was started on IV Lasix in the emergency room. Patient was admitted to medical floor for further evaluation and treatment, cardiology consultation was requested On 07/24/2021 patient was seen and examined on the medical floor she is alert and oriented 3 in no apparent distress she is still complaining of shortness of breath and bilateral lower extremity tenderness to touch otherwise she denies any complaints there is no fever or chills no headache or dizziness no chest pain no cough no nausea or vomiting no abdominal pain no diarrhea no blood in the stools no burning with urination no frequency or urgency and no hematuria On to patient's alert and oriented 3. Ultrasound of kidneys have been ordered per nephrology services. Patient remains on IV antibiotics for cellulitis. This time patient denies chest pain or shortness breath. Patient denies nausea vomiting or diarrhea. Patient denies any urinary burning or frequency On 07/26/2021 patient is alert and oriented 3. Patient has been transitioned to by mouth Lasix. Patient also positive for urinary tract infection. Patient remains on IV urine culture has been ordered. Cardiology and nephrology services are following. Current vitals temp 97.5, heart rate 94, blood pressure 132/73 patient satting 95% on room air. Patient reports she does not feel ready to be DC'd home. Anticipate discharge in the next 24-48 hours On 07/27/2021 patient was seen and examined on the medical floor she is alert and oriented 3 in no apparent distress there is no fever or chills no headache or dizziness no chest pain, her shortness of breath has improved, there is no cough no nausea or vomiting, no abdominal pain no diarrhea no blood in the stools no burning with urination no frequency or urgency and no hematuria, today patient is complaining of worsening pain in the right upper thigh and groin area. On 07/28/2021 patient was seen and examined on the medical floor she is alert and oriented 3 in no apparent distress there is no fever or chills no headache or dizziness no chest pain no shortness of breath no cough no nausea or vomiting no abdominal pain no diarrhea and no urinary symptoms. Started the patient was complaining of pain in the right groin area x-ray of the right hip revealed evidence of advanced osteoarthritis, Doppler of the right lower extremity did not reveal any evidence of DVT. Patient is stable and will be discharged home today, she was switched from IV antibiotics to oral Keflex, also Bumex was discontinued during this admission and patient was started on Demadex 20 mg by mouth daily. Patient should have blood test in the next 2-3 days including BMP and magnesium she should follow-up with nephrology in 2-3 weeks follow-up with primary care physician within one week Plan - Discharge Summary Discharge Rx Participant: Yes New Discharge Prescriptions: New Torsemide [Demadex] 20 mg PO DAILY tab Cephalexin [Keflex] 500 mg PO Q8HR 10 Days #30 cap Continue Levothyroxine Sodium [Synthroid] 50 mcg PO DAILY Rosuvastatin [Crestor] 20 mg PO HS Clopidogrel [Plavix] 75 tab PO DAILY Metoprolol Succinate (ER) [Toprol XL] 50 mg PO BID Famotidine [Pepcid] 20 mg PO DAILY Potassium Chloride ER [K-Dur 20] 20 meq PO DAILY Cyanocobalamin [Vitamin B-12] 500 mcg PO DAILY Cholecalciferol [Vitamin D3 (25 Mcg = 1000 Iu)] 50 mcg PO DAILY HYDROcodone/APAP 7.5-325MG [[place] 7.5-325] 1 tab PO Q8HR PRN 30 Days #45 tab PRN Reason: Pain Rivaroxaban [Xarelto] 15 mg PO HS Discontinued Bumetanide [BUMEX] 0.5 mg PO DAILY Discharge Medication List Levothyroxine Sodium [Synthroid] 50 mcg PO DAILY 11/07/14 [History] Rosuvastatin [Crestor] 20 mg PO HS 10/09/16 [History] Clopidogrel [Plavix] 75 tab PO DAILY 04/27/18 [History] Metoprolol Succinate (ER) [Toprol XL] 50 mg PO BID 05/17/18 [History] Famotidine [Pepcid] 20 mg PO DAILY 03/06/19 [History] Potassium Chloride ER [K-Dur 20] 20 meq PO DAILY 03/06/19 [History] HYDROcodone/APAP 7.5-325MG [[place] 7.5-325] 1 tab PO Q8HR PRN 30 Days #45 tab 12/18/20 [Rx] Cholecalciferol [Vitamin D3 (25 Mcg = 1000 Iu)] 50 mcg PO DAILY 07/23/21 [History] Cyanocobalamin [Vitamin B-12] 500 mcg PO DAILY 07/23/21 [History] Rivaroxaban [Xarelto] 15 mg PO HS 07/23/21 [History] Cephalexin [Keflex] 500 mg PO Q8HR 10 Days #30 cap 07/28/21 [Rx] Torsemide [Demadex] 20 mg PO DAILY tab 07/28/21 [Rx] Follow up Appointment(s)/Referral(s): Emir Teague MD [STAFF PHYSICIAN] - 2 Weeks [facility], [NON-STAFF] - 1-2 Days Bethany Calle MD [Primary Care Provider] - 1-2 days Patient Instructions/Handouts: Heart Failure (DC) Activity/Diet/Wound Care/Special Instructions: activity as tolerated heart healthy diet
== END 2021-07-28 14:06 | disposition home health service (06) | DRG 602 ==
LOC: EC 13:59 → 6NMEDSUR 16:37 → OBSVTOIN 07-25 08:10
PROVIDERS: ADMIT Internal Medicine; ATTEND Internal Medicine
DX: L03.115 Cellulitis of right lower limb (principal); I50.33 Acute on chronic diastolic (congestive) heart failure; I13.0 Hypertensive heart and chronic kidney disease with heart failure and stage 1 through stage 4 chronic kidney disease, or unspecified chronic kidney disease; I42.8 Other cardiomyopathies; I47.2 Ventricular tachycardia; Z20.822 Contact with and (suspected) exposure to COVID-19; N17.9 Acute kidney failure, unspecified; N39.0 Urinary tract infection, site not specified; I48.92 Unspecified atrial flutter; L97.828 Non-pressure chronic ulcer of other part of left lower leg with other specified severity; L97.818 Non-pressure chronic ulcer of other part of right lower leg with other specified severity; L03.116 Cellulitis of left lower limb; I73.9 Peripheral vascular disease, unspecified; J44.9 Chronic obstructive pulmonary disease, unspecified; E03.9 Hypothyroidism, unspecified; E78.5 Hyperlipidemia, unspecified; I08.1 Rheumatic disorders of both mitral and tricuspid valves; I25.10 Atherosclerotic heart disease of native coronary artery without angina pectoris; I25.2 Old myocardial infarction; N18.9 Chronic kidney disease, unspecified; I27.20 Pulmonary hypertension, unspecified; I49.5 Sick sinus syndrome; I48.0 Paroxysmal atrial fibrillation; M79.651 Pain in right thigh; I49.3 Ventricular premature depolarization; M19.90 Unspecified osteoarthritis, unspecified site; Z79.01 Long term (current) use of anticoagulants; Z79.02 Long term (current) use of antithrombotics/antiplatelets; Z79.890 Hormone replacement therapy; Z79.899 Other long term (current) drug therapy; Z80.0 Family history of malignant neoplasm of digestive organs; Z85.41 Personal history of malignant neoplasm of cervix uteri; Z87.442 Personal history of urinary calculi; Z87.891 Personal history of nicotine dependence; Z90.710 Acquired absence of both cervix and uterus; Z95.0 Presence of cardiac pacemaker; Z95.5 Presence of coronary angioplasty implant and graft; Z95.820 Peripheral vascular angioplasty status with implants and grafts; Z96.642 Presence of left artificial hip joint; Z88.5 Allergy status to narcotic agent; Z88.8 Allergy status to other drugs, medicaments and biological substances; Z87.19 Personal history of other diseases of the digestive system
CPT/HCPCS: 36415; 71046; 73502; 76770; 80053; 81001; 83735; 83880; 84484; 85025; 85610; 85730; 87077; 87086; 87186; 87635; 93005; 93306; 94760; 99285

== ENCOUNTER → 2021-08-11 | Outpatient (CLI) | payer MEDICARE, MEDICAID ==
--- NOTE | 2021-08-11 14:00 | P.PN ---
Subjective Progress Note Date: 08/11/21 Principal diagnosis: A 85 yr old female with a history of severe and chronic low back pain secondary to lumbar degenerative disc diseases and lumbar spondylosis with facet arthropathy presents today for medication refills. Pain level is currently at 8 out of 10, constant, dull, achy in the lower aspects of her lumbar spine with occasional radiation of sharp pain down the right lower extremity. Pain is provoked by sitting for periods of 1 hour or more, standing for 30 minutes or walking for 15 minutes. Pain is alleviated with medications, physical therapy which she is currently an, home stretching regimen, use of a wheelchair for ambulation, use of a cane for ambulation, repositioning and rest. Patient is currently on Paterson 7.5-325mg #45 from this clinic. Patient denies any side effects of the medication(s), denies excessive drowsiness or sleepiness, denies suicidal ideation and reports that the current pain medication is helping to control the pain and improve activities of daily living. Patient denies any motor or sensory deficits. Patient denies any fever or night sweats, denies any change in the bowel movements or urination. Physical Examination: -Constitutional: Cooperative. Not in acute distress . -HEENT: Neck is supple. No lymphadenopathy. No thyromegaly. Normal thyroid size. Eyes: No ptosis , no icterus, no photophobia. ENT: No auditory deficits. Normal oropharynx. No Thrush. - Respiratory: Chest clear to auscultations bilaterally. No wheezing. No rhonchi. - Cardiovascular: Regular rate and rhythm. S1 / S2 , no S3 , no S4. - Gastrointestinal: Abdomen soft no tenderness. Bowel sounds positive in all four quadrants. No organomegaly. - Genitourinary: Deferred. - Neurologic: Cranial nerve II to XII intact. No focal neurological deficits. - Psychatric: Alert & oriented x 3. Matching mood & appropriate affect. Judgment and insight intact. - Lymphatic: No Lymphadenopathy. - Musculoskeletal: Cervical spine: Muscle bulk/ tone/ strength in the bilateral upper extremities normal. Facet loading test cervical area positive. Lumbar spine: Motor bulk/ tone/ strength lower extremities , thigh and legs : age appropriate Deep tendon reflexes : Normal Knee Jerk. Normal Ankle Jerk . Vertebral body tenderness to palpation over L3, L4, L5 Lumbar Facet Loading Test positive Straight Leg Raise: positive at 30 degrees right side/ left side Gaenslen's Test positive Sacral spine : Severe tenderness over the Sacroiliac joint: right side / left side Range of motion: Flexion of the lumbar spine <60 degrees Range of motion: Extension of the lumbar spine <20 degrees Gaenslen's Test positive Paresh test: positive right side / left side Assessment and plan: Chronic low back pain secondary to lumbar degenerative disc disease , lumbar spondylosis with facet arthropathy without myelopathy Chronic and current use of high-risk medication (Opioids). The patient was counseled about risk of opioid use, psychological risk associated with opioids and was orally counseled to not overuse , divert or sell medications. Pt is to store medication in a safe location. The patient is counseled against driving while using narcotic medications and also not to use alcohol or any illicit recreational drugs. Patient verbalized understanding that the lack of compliance will result in failure to renew narcotic prescription(s) as well as possible discharge from the clinic Diagnoses, prognosis and treatment options including but not limited to physical therapy, surgical interventions, interventional therapies and medication management including narcotics and adjuvant medication were discussed. All patient questions answered MAPS reviewed and it was appropriate. UDS reviewed from 05/2021 and was consistent. Prescription refill for Paterson 7.5/325mg #45 with 1 refill. I have spent 31 minutes on patient care today. Dr Petersen was available by phone for the evaluation of this patient. The time was used to review the medical records including relevant urine studies and Prescription history (MAPs), review of the available imaging, evaluation and examination of the patient, coordination of care with the medical staff and if applicable referring physicians, as well as creation of the medical record Objective - Vital Signs Vital signs: Intake & Output 08/10/21 08/11/21 08/11/21 18:59 06:59 18:59 Weight 81.647 kg PQRS Measure Charge Sheet Mode of Arrival: Wheelchair - Pain Location Right Leg Non-Pharmacological Interventions: Exercise, Home Exercise, Inactivity, Physical Therapy, Stretching Pharmacological Interventions: PRN Medication PQRS Narrative: Smoking Status Current every day smoker Narcotic Agreement Date Signed 06/18/21 Blood Pressure 135/64 Pain Intensity [Right Leg] 8 Scale Used Numeric (1 - 10) Hx Alcohol Use (MH) Yes: rare Home Medications: Ambulatory Orders Levothyroxine Sodium [Synthroid] 50 mcg PO DAILY 11/07/14 Rosuvastatin [Crestor] 20 mg PO HS 10/09/16 Clopidogrel [Plavix] 75 tab PO DAILY 04/27/18 Metoprolol Succinate (ER) [Toprol XL] 50 mg PO BID 05/17/18 Famotidine [Pepcid] 20 mg PO DAILY 03/06/19 Potassium Chloride ER [K-Dur 20] 20 meq PO DAILY 03/06/19 Cholecalciferol [Vitamin D3 (25 Mcg = 1000 Iu)] 50 mcg PO DAILY 07/23/21 Cyanocobalamin [Vitamin B-12] 500 mcg PO DAILY 07/23/21 Rivaroxaban [Xarelto] 15 mg PO HS 07/23/21 Cephalexin [Keflex] 500 mg PO Q8HR 10 Days #30 cap 07/28/21 Torsemide [Demadex] 20 mg PO DAILY tab 07/28/21 HYDROcodone/APAP 7.5-325MG [Paterson 7.5-325] 1 tab PO Q8H PRN 30 Days #45 tab 08/11/21 HYDROcodone/APAP 7.5-325MG [Paterson 7.5-325] 1 tab PO Q8HR PRN 30 Days #45 tab 08/11/21
[2021-08-11 14:02] VITALS: BP 135/64; PULSE 48; RESP 16; TEMP 98.2
== END ==
LOC: PNWHC3 13:10
PROVIDERS: ATTEND Physician Assistant Medical
DX: M51.36 Other intervertebral disc degeneration, lumbar region (principal); M47.816 Spondylosis without myelopathy or radiculopathy, lumbar region; G89.29 Other chronic pain; Z79.891 Long term (current) use of opiate analgesic; F17.200 Nicotine dependence, unspecified, uncomplicated; Z88.5 Allergy status to narcotic agent; Z88.8 Allergy status to other drugs, medicaments and biological substances
CPT/HCPCS: 99211

== ENCOUNTER → 2022-03-23 | Outpatient (CLI) | payer MEDICARE, MEDICAID ==
[2022-03-23 18:22] LABS: % Iron Saturation 18.5 (12.00-45.00); African American GFR (CKD) 32.2 (60.0-200.0); BUN/Creat Ratio 11.27 Ratio (12.00-20.00); Blood Urea Nitrogen 18.7 mg/dL (9.0-27.0); Calcium 9.2 mg/dL (8.7-10.3); Carbon Dioxide 31.2 mmol/L (20.0-27.5); Non-African American GFR(CKD) 27.8 (60.0-200.0); Phosphorus 2.8 mg/dL (2.4-5.1); Potassium 3.2 mmol/L (3.5-5.5)
[2022-03-23 19:11] LABS: Basophils # (A) 0.03 X 10*3/uL (0.00-0.10); Basophils % (A) 0.5 %; Eosinophils # (A) 0.19 X 10*3/uL (0.04-0.35); Eosinophils % (A) 3.3 %; HCT 40.1 % (37.2-46.3); HGB 12.7 g/dL (12.0-15.0); Immature Grans, Automated 0.3 %; Lymphocytes # (A) 2.09 X 10*3/uL (0.90-5.00); Lymphocytes % (A) 36.2 %; MCH 29.9 pg (27.0-32.0); MCHC 31.7 g/dL (32.0-37.0); MCV 94.4 fL (80.0-97.0); Mean Platelet Volume 10.3 fL (9.5-12.2); Monocytes # (A) 0.81 X 10*3/uL (0.20-1.00); NRBC Per 100 WBC 0 /100 WBCS (0.0-0.0); Neutrophils # (A) 2.63 X 10*3/uL (1.80-7.70); Neutrophils % (A) 45.7 %; Platelet Count 199 X 10*3/uL (140-440); RBC 4.25 X 10*6/uL (4.10-5.20); RDW 14.8 % (11.5-14.5); WBC 5.77 X 10*3/uL (4.50-10.00)
[2022-03-23 20:08] LABS: DNA Double-Stranded NEGATIVE (NEGATIVE)
[2022-03-24 13:58] LABS: C-ANCA <1:20 Titer (<1:20)
[2022-03-25 09:14] LABS: Free Lambda Lt Chain Qnt, Seru 6.36 mg/dL (0.57-2.63)
[2022-03-25 09:29] LABS: Free Kappa Lt Chain Qnt, Serum 12.51 mg/dL (0.33-1.94)
== END | disposition home or self-care (01) ==
LOC: LABWHC1 11:13
PROVIDERS: ATTEND Nurse Practitioner Family
DX: N18.4 Chronic kidney disease, stage 4 (severe) (principal); R80.9 Proteinuria, unspecified
CPT/HCPCS: 36415; 80048; 82306; 82728; 83516; 83540; 83550; 83735; 83883; 83970; 84100; 84550; 85025; 86038; 86160; 86162; 86225; 86255; 86334

== ENCOUNTER → 2023-04-05 | Outpatient (CLI) | payer MEDICARE, MEDICAID | END | disposition home or self-care (01) | LOC: RADNMMAIN 11:12 | PROVIDERS: ATTEND Internal Medicine Nephrology | DX: Z53.9 Procedure and treatment not carried out, unspecified reason (principal) ==

== ENCOUNTER 2023-05-04 10:46 | Inpatient (IN) | payer MEDICARE, MEDICAID ==
--- NOTE | 2023-05-04 11:24 | ED ---
General Adult HPI - General Chief complaint: GI Bleed Stated complaint: Weakness Time Seen by Provider: 05/04/23 10:50 Source: patient, RN notes reviewed, old records reviewed Mode of arrival: ambulatory Limitations: no limitations - History of Present Illness Initial comments: 87 yo female with progressive weakness over the past 2 weeks. Patient had noted black stool which she informed her daughter up today. She is on Xarelto with history of atrial fibrillation. She reports generalized pain complaints without focality. No central chest pain. No history of vomiting or diarrhea. - Related Data Home Medications Medication Instructions Recorded Confirmed Levothyroxine Sodium [Synthroid] 50 mcg PO DAILY 11/07/14 08/11/21 Rosuvastatin [Crestor] 20 mg PO HS 10/09/16 08/11/21 Clopidogrel [Plavix] 75 tab PO DAILY 04/27/18 08/11/21 Metoprolol Succinate (ER) [Toprol 50 mg PO BID 05/17/18 08/11/21 XL] Famotidine [Pepcid] 20 mg PO DAILY 03/06/19 08/11/21 Potassium Chloride ER [K-Dur 20] 20 meq PO DAILY 03/06/19 08/11/21 Cholecalciferol [Vitamin D3 (25 50 mcg PO DAILY 07/23/21 08/11/21 Mcg = 1000 Iu)] Cyanocobalamin [Vitamin B-12] 500 mcg PO DAILY 07/23/21 08/11/21 Rivaroxaban [Xarelto] 15 mg PO HS 07/23/21 08/11/21 Previous Rx's Medication Instructions Recorded Cephalexin [Keflex] 500 mg PO Q8HR 10 Days #30 cap 07/28/21 Torsemide [Demadex] 20 mg PO DAILY tab 07/28/21 HYDROcodone/APAP 7.5-325MG [[place] 1 tab PO Q8H PRN 30 Days #45 tab 08/11/21 7.5-325] HYDROcodone/APAP 7.5-325MG [[place] 1 tab PO Q8HR PRN 30 Days #45 tab 08/11/21 7.5-325] Allergies Allergy/AdvReac Type Severity Reaction Status Date / Time hydromorphone [From Dilaudid] AdvReac Nausea & Verified 05/04/23 10:52 Vomiting lorazepam [From Ativan] AdvReac Hallucinati Verified 05/04/23 10:52 ons Review of Systems ROS Statement: Those systems with pertinent positive or pertinent negative responses have been documented in the HPI. ROS Other: All systems not noted in ROS Statement are negative. Past Medical History Past Medical History: Atrial Fibrillation, Atrial Flutter, Coronary Artery Disease (CAD), Cancer, Heart Failure, COPD, Hyperlipidemia, Hypertension, Liver Disease, Thyroid Disorder, Vascular Disorder Additional Past Medical History / Comment(s): hx Kidney Stones, Chronic N/T BILAT LEGS, WITH BLE EDEMA, states has had lymphedema with weeping valeria lower legs, degenerative arthritis, hx hepatitis C, hx cervical cancer, PVD Last Myocardial Infarction Date:: 2009 History of Any Multi-Drug Resistant Organisms: VRE Date of last positivie culture/infection: 01/14/21 MDRO Source:: VRE URINE Past Surgical History: Appendectomy, Cholecystectomy, Heart Catheterization With Stent, Hysterectomy, Joint Replacement, Pacemaker Additional Past Surgical History / Comment(s): valeria lower ext vascular repairs,2--17 abd. aortogram, ERCP, 4 cardiac stents, left hip replacement Past Anesthesia/Blood Transfusion Reactions: Family History of Problems w/ Anesthesia Additional Past Anesthesia/Blood Transfusion Reaction / Comment(s): sister-long time to come out Date of Last Stent Placement:: 2010? Type of Cardiac Device: Permanent Pacemaker Device Placement Date:: 2014 Past Psychological History: No Psychological Hx Reported Smoking Status: Former smoker Past Alcohol Use History: None Reported Past Drug Use History: None Reported - Past Family History Son(s) Family Medical History: Cancer Additional Family Medical History / Comment(s): Patient has 3 sons and one has been diagnosed with bladder cancer. Brother(s) Family Medical History: Cancer Additional Family Medical History / Comment(s): Patient has 2 brothers and one was diagnosed with esophageal cancer with metastatic disease. Daughter(s) Family Medical History: Cancer (patient has 3 daughters one of them was diagnosed with leukemia.) Additional Family Medical History / Comment(s): Patient has 3 daughters and one diagnosed with leukemia. General Exam Limitations: no limitations General appearance: alert, in no apparent distress Head exam: Present: atraumatic, normocephalic ENT exam: Present: normal exam Neck exam: Present: normal inspection. Absent: tenderness, meningismus Respiratory exam: Present: normal lung sounds bilaterally. Absent: respiratory distress, wheezes Cardiovascular Exam: Present: regular rate, normal rhythm GI/Abdominal exam: Present: soft. Absent: distended, tenderness Rectal exam: Present: black stool Extremities exam: Present: normal inspection, normal capillary refill Neurological exam: Present: alert. Absent: motor sensory deficit Skin exam: Present: pallor Course Vital Signs 05/04/23 10:49 Pulse Rate 60 Respiratory 18 Rate Blood Pressure 103/46 O2 Sat by Pulse 98 Oximetry Medical Decision Making - Medical Decision Making Was pt. sent in by a medical professional or institution (, PA, [employer], urgent care, hospital, or fci...) When possible be specific @ -No Did you speak to anyone other than the patient for history (EMS, parent, family, police, friend...)? What history was obtained from this source @ -[Patient's daughter Did you review nursing and triage notes (agree or disagree)? Why? @ -I reviewed and agree with nursing and triage notes Were old charts reviewed (outside hosp., previous admission, EMS record, old EKG, old radiological studies, urgent care reports/EKG's, fci records)? Report findings @ -No old charts were reviewed Differential Diagnosis (chest pain, altered mental status, abdominal pain women, abdominal pain men, vaginal bleeding, weakness, fever, dyspnea, syncope, headache, dizziness, GI bleed, back pain, seizure, CVA, palpatations, mental h ealth, musculoskeletal)? @ -[Differential GI Bleed: Esophageal varices, aortoenteric fistula, Key-Landeros, gastritis, peptic ulcer disease, diverticulosis, inflammatory bowel disease, hemorrhoids, fissure, colitis, malignancy, Meckels diverticulum, this is not meant to be an all- inclusive list. EKG interpreted by me (3pts min.). @ -Paced rhythm rate of 60, IN interval 239, QRS duration 94, QTC [address] segment changes. X-rays interpreted by me (1pt min.). @ -None done CT interpreted by me (1pt min.). @ -None done U/S interpreted by me (1pt. min.). @ -None done What testing was considered but not performed or refused? (CT, X-rays, U/S, labs)? Why? @ -None What meds were considered but not given or refused? Why? @ -None Did you discuss the management of the patient with other professionals (professionals i.e. DrOlga, PA, [employer], lab, RT, psych nurse, school social worker, manager field service, teacher, botanical technical officer, telehealth case manager)? Give summary @ -[Dr. Ford Was smoking cessation discussed for >3mins.? @ -No Was critical care preformed (if so, how long)? @ -No Were there social determinants of health that impacted care today? How? (Homelessness, low income, unemployed, alcoholism, drug addiction, transportation, low edu. Level, literacy, decrease access to med. care, long-term, rehab)? @ -No Was there de-escalation of care discussed even if they declined (Discuss DNR or withdrawal of care, Hospice)? DNR status @ -[Discussion with the patient and patient's daughter, patient is a DO NOT RESUSCITATE What co-morbidities impacted this encounter? (DM, HTN, Smoking, COPD, CAD, Cancer, CVA, ARF, Chemo, Hep., AIDS, mental health diagnosis, sleep apnea, morbid obesity)? @ -[Atrial fibrillation on Xarelto Was patient admitted / discharged? Hospital course, mention meds given and route, prescriptions, significant lab abnormalities, going to OR and other pertinent info. @ -87 yo female presenting for evaluation of weakness, dark stool. Patient does have acute anemia with a hemoglobin 6.6. She is transfused one unit in the emergency department and started on Protonix. She has heme occult positive melanotic stool. Additionally the patient has signs of urinary tract infection she is covered with ceftriaxone. She will be admitted for evaluation of GI bleed with gastric neurology on consult. Case discussed with son physician group Undiagnosed new problem with uncertain prognosis? @ -No Drug Therapy requiring intensive monitoring for toxicity (Heparin, Nitro, Insulin, Cardizem)? @ -No Were any procedures done? @ -No Diagnosis/symptom? @ -[GI bleed, UTI Acute, or Chronic, or Acute on Chronic? @ -[acute Uncomplicated (without systemic symptoms) or Complicated (systemic symptoms)? @ -default Side effects of treatment? @ -No Exacerbation, Progression, or Severe Exacerbation? @ -No Poses a threat to life or bodily function? How? (Chest pain, USA, SD, pneumonia, PE, COPD, DKA, ARF, appy, cholecystitis, CVA, Diverticulitis, Homicidal, Suicidal, threat to staff... and all critical care pts) @ -[Yes, GI bleed - Lab Data Result diagrams: 05/04/23 11:11 05/04/23 11:11 Lab Results 05/04/23 05/04/23 05/04/23 Range/Units 11:11 11:11 11:11 WBC 4.5 (3.8-10.6) k/uL RBC 2.24 L (3.80-5.40) m/uL Hgb 6.6 L* (11.4-16.0) gm/dL Hct 21.9 L (34.0-46.0) % MCV 98.1 (80.0-100.0) fL MCH 29.3 (25.0-35.0) pg MCHC 29.9 L (31.0-37.0) g/dL RDW 17.7 H (11.5-15.5) % Plt Count 154 (150-450) k/uL MPV 9.2 Neutrophils % Not Reportable Neutrophils % (Manual) 54 % Lymphocytes % Not Reportable Lymphocytes % (Manual) 39 % Monocytes % Not Reportable Monocytes % (Manual) 6 % Eosinophils % Not Reportable Eosinophils % (Manual) 1 % Basophils % Not Reportable Neutrophils # Not Reportable Neutrophils # (Manual) 2.43 (1.3-7.7) k/uL Lymphocytes # Not Reportable Lymphocytes # (Manual) 1.76 (1.0-4.8) k/uL Monocytes # Not Reportable Monocytes # (Manual) 0.27 (0-1.0) k/uL Eosinophils # Not Reportable Eosinophils # (Manual) 0.05 (0-0.7) k/uL Basophils # Not Reportable Nucleated RBCs 0 (0-0) /100 WBC Manual Slide Review Performed Hypochromasia Marked Poikilocytosis Moderate Anisocytosis Slight Macrocytosis Slight PT 15.5 H (10.0-12.5) sec INR 1.5 H (<1.2) APTT 30.3 H (22.0-30.0) sec Sodium (137-145) mmol/L Potassium (3.5-5.1) mmol/L Chloride (98-107) mmol/L Carbon Dioxide (22-30) mmol/L Anion Gap mmol/L BUN (7-17) mg/dL Creatinine (0.52-1.04) mg/dL Est GFR (CKD-EPI)AfAm (>60 ml/min/1.73 sqM) Est GFR (CKD-EPI)NonAf (>60 ml/min/1.73 sqM) Glucose (74-99) mg/dL Plasma Lactic Acid Tyler (0.7-2.0) mmol/L Calcium (8.4-10.2) mg/dL Magnesium (1.6-2.3) mg/dL Total Bilirubin (0.2-1.3) mg/dL AST (14-36) U/L ALT (4-34) U/L Alkaline Phosphatase (38-126) U/L Troponin I (0.000-0.034) ng/mL Total Protein (6.3-8.2) g/dL Albumin (3.5-5.0) g/dL Urine Color Urine Appearance (Clear) Urine pH (5.0-8.0) Ur Specific [place] (1.001-1.035) Urine Protein (Negative) Urine Glucose (UA) (Negative) Urine Ketones (Negative) Urine Blood (Negative) Urine Nitrite (Negative) Urine Bilirubin (Negative) Urine Urobilinogen (<2.0) mg/dL Ur Leukocyte Esterase (Negative) Urine RBC (0-5) /hpf Urine WBC (0-5) /hpf Urine WBC Clumps (None) /hpf Ur Squamous Epith Cells (0-4) /hpf Urine Bacteria (None) /hpf Urine Mucus (None) /hpf Urine Yeast (Budding) (None) /hpf Stool Occult Blood Positive H (Negative) Influenza Type A (PCR) (Not Detectd) Influenza Type B (PCR) (Not Detectd) RSV (PCR) (Not Detectd) SARS-CoV-2 (PCR) (Not Detectd) 05/04/23 05/04/23 05/04/23 Range/Units 11:11 11:11 11:11 WBC (3.8-10.6) k/uL RBC (3.80-5.40) m/uL Hgb (11.4-16.0) gm/dL Hct (34.0-46.0) % MCV (80.0-100.0) fL MCH (25.0-35.0) pg MCHC (31.0-37.0) g/dL RDW (11.5-15.5) % Plt Count (150-450) k/uL MPV Neutrophils % Neutrophils % (Manual) % Lymphocytes % Lymphocytes % (Manual) % Monocytes % Monocytes % (Manual) % Eosinophils % Eosinophils % (Manual) % Basophils % Neutrophils # Neutrophils # (Manual) (1.3-7.7) k/uL Lymphocytes # Lymphocytes # (Manual) (1.0-4.8) k/uL Monocytes # Monocytes # (Manual) (0-1.0) k/uL Eosinophils # Eosinophils # (Manual) (0-0.7) k/uL Basophils # Nucleated RBCs (0-0) /100 WBC Manual Slide Review Hypochromasia Poikilocytosis Anisocytosis Macrocytosis PT (10.0-12.5) sec INR (<1.2) APTT (22.0-30.0) sec Sodium 141 (137-145) mmol/L Potassium 4.3 (3.5-5.1) mmol/L Chloride 106 (98-107) mmol/L Carbon Dioxide 24 (22-30) mmol/L Anion Gap 11 mmol/L BUN 49 H (7-17) mg/dL Creatinine 1.77 H (0.52-1.04) mg/dL Est GFR (CKD-EPI)AfAm 30 (>60 ml/min/1.73 sqM) Est GFR (CKD-EPI)NonAf 26 (>60 ml/min/1.73 sqM) Glucose 144 H (74-99) mg/dL Plasma Lactic Acid Tyler 2.1 H* (0.7-2.0) mmol/L Calcium 9.2 (8.4-10.2) mg/dL Magnesium 2.3 (1.6-2.3) mg/dL Total Bilirubin 0.7 (0.2-1.3) mg/dL AST 34 (14-36) U/L ALT 19 (4-34) U/L Alkaline Phosphatase 112 (38-126) U/L Troponin I 0.015 (0.000-0.034) ng/mL Total Protein 6.4 (6.3-8.2) g/dL Albumin 3.1 L (3.5-5.0) g/dL Urine Color Urine Appearance (Clear) Urine pH (5.0-8.0) Ur Specific [place] (1.001-1.035) Urine Protein (Negative) Urine Glucose (UA) (Negative) Urine Ketones (Negative) Urine Blood (Negative) Urine Nitrite (Negative) Urine Bilirubin (Negative) Urine Urobilinogen (<2.0) mg/dL Ur Leukocyte Esterase (Negative) Urine RBC (0-5) /hpf Urine WBC (0-5) /hpf Urine WBC Clumps (None) /hpf Ur Squamous Epith Cells (0-4) /hpf Urine Bacteria (None) /hpf Urine Mucus (None) /hpf Urine Yeast (Budding) (None) /hpf Stool Occult Blood (Negative) Influenza Type A (PCR) (Not Detectd) Influenza Type B (PCR) (Not Detectd) RSV (PCR) (Not Detectd) SARS-CoV-2 (PCR) (Not Detectd) 05/04/23 05/04/23 Range/Units 11:11 11:15 WBC (3.8-10.6) k/uL RBC (3.80-5.40) m/uL Hgb (11.4-16.0) gm/dL Hct (34.0-46.0) % MCV (80.0-100.0) fL MCH (25.0-35.0) pg MCHC (31.0-37.0) g/dL RDW (11.5-15.5) % Plt Count (150-450) k/uL MPV Neutrophils % Neutrophils % (Manual) % Lymphocytes % Lymphocytes % (Manual) % Monocytes % Monocytes % (Manual) % Eosinophils % Eosinophils % (Manual) % Basophils % Neutrophils # Neutrophils # (Manual) (1.3-7.7) k/uL Lymphocytes # Lymphocytes # (Manual) (1.0-4.8) k/uL Monocytes # Monocytes # (Manual) (0-1.0) k/uL Eosinophils # Eosinophils # (Manual) (0-0.7) k/uL Basophils # Nucleated RBCs (0-0) /100 WBC Manual Slide Review Hypochromasia Poikilocytosis Anisocytosis Macrocytosis PT (10.0-12.5) sec INR (<1.2) APTT (22.0-30.0) sec Sodium (137-145) mmol/L Potassium (3.5-5.1) mmol/L Chloride (98-107) mmol/L Carbon Dioxide (22-30) mmol/L Anion Gap mmol/L BUN (7-17) mg/dL Creatinine (0.52-1.04) mg/dL Est GFR (CKD-EPI)AfAm (>60 ml/min/1.73 sqM) Est GFR (CKD-EPI)NonAf (>60 ml/min/1.73 sqM) Glucose (74-99) mg/dL Plasma Lactic Acid Tyler (0.7-2.0) mmol/L Calcium (8.4-10.2) mg/dL Magnesium (1.6-2.3) mg/dL Total Bilirubin (0.2-1.3) mg/dL AST (14-36) U/L ALT (4-34) U/L Alkaline Phosphatase (38-126) U/L Troponin I (0.000-0.034) ng/mL Total Protein (6.3-8.2) g/dL Albumin (3.5-5.0) g/dL Urine Color Yellow Urine Appearance Slightly Cloudy H (Clear) Urine pH 6.0 (5.0-8.0) Ur Specific [place] 1.020 (1.001-1.035) Urine Protein 1+ H (Negative) Urine Glucose (UA) Negative (Negative) Urine Ketones Negative (Negative) Urine Blood Small (Negative) Urine Nitrite Negative (Negative) Urine Bilirubin Negative (Negative) Urine Urobilinogen <2.0 (<2.0) mg/dL Ur Leukocyte Esterase Large (Negative) Urine RBC 1 (0-5) /hpf Urine WBC >182 H (0-5) /hpf Urine WBC Clumps Many H (None) /hpf Ur Squamous Epith Cells 1 (0-4) /hpf Urine Bacteria Many H (None) /hpf Urine Mucus Rare H (None) /hpf Urine Yeast (Budding) Moderate H (None) /hpf Stool Occult Blood (Negative) Influenza Type A (PCR) Not Detected (Not Detectd) Influenza Type B (PCR) Not Detected (Not Detectd) RSV (PCR) Not Detected (Not Detectd) SARS-CoV-2 (PCR) Not Detected (Not Detectd) Disposition Clinical Impression: Melena, Weakness Disposition: ADMITTED IP TO THIS HOSP Condition: Stable Is patient prescribed a controlled substance at d/c from ED?: No Referrals: Nonstaff,Physician [REFERRING] - 1-2 days Time of Disposition: 12:58
[2023-05-04 11:44] LABS: INR 1.5 (<1.2); Partial Thromboplastin Time 30.3 sec (22.0-30.0); Prothrombin Time 15.5 sec (10.0-12.5)
[2023-05-04 11:44] LABS: Appearance,Urine Slightly Cloudy (Clear); Bilirubin,Urine Negative (Negative); Blood,Urine Small (Negative); Color,Urine Yellow; Glucose,Urine (UA) Negative (Negative); Ketones,Urine Negative (Negative); Protein,Urine 1+ (Negative)
[2023-05-04 11:45] LABS: Leukocyte Esterase,Urine Large (Negative); Nitrite,Urine Negative (Negative); Urobilinogen,Urine <2.0 mg/dL (<2.0)
[2023-05-04 11:47] LABS: Bacteria,Urine Many /hpf; Budding Yeast,Urine Moderate /hpf; Mucus,Urine Rare /hpf; RBC,Urine 1 /hpf (0-5); Squamous Epithelial Cell,Urine 1 /hpf (0-4); WBC,Urine >182 /hpf (0-5)
[2023-05-04 11:47] LABS: ALT 19 U/L (4-34); AST 34 U/L (14-36); African American GFR (CKD) 30 (>60 ml/min/1.73 sqM); Albumin 3.1 g/dL (3.5-5.0); Alkaline Phosphatase 112 U/L (38-126); Anion Gap 11 mmol/L; Blood Urea Nitrogen 49 mg/dL (7-17); Calcium 9.2 mg/dL (8.4-10.2); Carbon Dioxide 24 mmol/L (22-30); Chloride 106 mmol/L (98-107); Glucose 144 mg/dL (74-99); Magnesium 2.3 mg/dL (1.6-2.3); Non-African American GFR(CKD) 26 (>60 ml/min/1.73 sqM); Potassium 4.3 mmol/L (3.5-5.1); Sodium 141 mmol/L (137-145); Total Bilirubin 0.7 mg/dL (0.2-1.3); Total Protein 6.4 g/dL (6.3-8.2)
[2023-05-04 12:03] LABS: Anisocytosis Slight; HCT 21.9 % (34.0-46.0); Hypochromasia Marked; MCH 29.3 pg (25.0-35.0); MCHC 29.9 g/dL (31.0-37.0); MCV 98.1 fL (80.0-100.0); Macrocytosis Slight; Mean Platelet Volume 9.2; Platelet Count 154 k/uL (150-450); Poikilocytosis Moderate; RBC 2.24 m/uL (3.80-5.40); RDW 17.7 % (11.5-15.5); WBC 4.5 k/uL (3.8-10.6)
[2023-05-04 12:11] LABS: HGB 6.6 gm/dL (11.4-16.0)
[2023-05-04] MEDS ORDERED: PANTOPRAZOLE 40 MG/10 ML VIAL IVP STA (12:19)
[2023-05-04] MEDS ORDERED: cefTRIAXone IN SWFI 1,000 MG/10 ML SYRINGE IVP STA (12:20)
[2023-05-04 12:50] LABS: Eosinophils # (M) 0.05 k/uL (0-0.7); Lymphocytes # (M) 1.76 k/uL (1.0-4.8); Monocytes # (M) 0.27 k/uL (0-1.0); Neutrophils # (M) 2.43 k/uL (1.3-7.7); Neutrophils % (M) 54 %; Nucleated Red Blood Cells 0 /100 WBC (0-0); Total Cells Counted 100
[2023-05-04] MEDS ORDERED: NALOXONE 0.4 MG/ML 1 ML VIAL IV PRN (12:54)
[2023-05-04] MEDS: SODIUM CHLORIDE 0.9% 1,000 ML IV SCH (13:11)
--- NOTE | 2023-05-04 15:53 | P.HPIM ---
History of Present Illness H&P Date: 05/04/23 Patient is a 87-year-old female with history of atrial fibrillation on Xarelto, hypothyroidism, dyslipidemia, diastolic CHF, hypertension, CAD status post stent, arrhythmia status post pacemaker presenting with weakness and fatigue. Patient is a poor historian. She claims that spent going on for couple of days. She is also noticed some melenic stools. She denies any chest pain, shortness of breath, abdominal pain, nausea, vomiting, urinary complaints. In the ED, temperature was 92.7, pulse 60, respiratory rate 18, blood pressure 103/46, saturating at 98% on room air. Hemoglobin 6.6, WBC 4.5, platelet 154, INR 1.5, APTT 30.3, creatinine at baseline 1.77, lactate 2.1, urinalysis shows large leukocyte esterase and negative nitrates. Troponin negative. Patient being admitted for acute GI bleed, GI consulted. Pertinent positives and negatives as discussed in HPI, a complete review of systems was performed and all other systems are negative. Patient seen and examined at bedside. Vital signs reviewed General: nontoxic, no distress, appears at stated age, chronically ill-appearing Derm: warm, dry, pale Head: atraumatic, normocephalic, symmetric Eyes: EOMI, no lid lag, anicteric sclera, pupils equal round reactive to light ENT: Nose and ears atraumatic Neck: No thyromegaly, supple Mouth: no lip lesion, mucus membranes moist Cardiovascular: S1S2 reg, no murmur, no edema Lungs: clear to auscultation bilateral, no rhonchi, no rales, no wheeze, no accessory muscle use Abdominal: soft, nontender to palpation, no guarding, no appreciable organomegaly Ext: no gross muscle atrophy, muscle strength muscle strength 5 out of 5 in all 4 extremities, no contractures Neuro: CN II-XII grossly intact Psych: Tired appearing, oriented, appropriate affect Assessment/Plan: Active: Acute blood loss anemia Acute upper GI bleed Atrial fibrillation on anticoagulation Hypothermia Lactic acidosis -Being transfused 1 unit of PRBCs -CBC every 12 hours -40 mg IV pantoprazole twice a day -Hold anticoagulation -GI consulted -Keep nothing by mouth -Continue IV fluids at 75 mL an hour -Hold antihypertensives, diuretics, continue metoprolol -passive rewarming Chronic: Chronic kidney disease, stage III Diastolic CHF, exacerbation Hypertension CAD status post stent Arrhythmia status post pacemaker Hypothyroidism The patient is admitted with an anticipated greater than 2 midnight stay as inpatient status for evaluation of acute GI bleed . Surrogate decision-maker: Daughter CODE STATUS: No code DVT prophylaxis: SCDs Anticipated discharge date: Pending clinical course Anticipated discharge place: Pending clinical course A total of 66 minutes was spent on the care of this complex patient more than 50% of the time was spent in counseling and care coordination. Past Medical History Past Medical History: Atrial Fibrillation, Atrial Flutter, Coronary Artery Disease (CAD), Cancer, Heart Failure, COPD, Hyperlipidemia, Hypertension, Liver Disease, Thyroid Disorder, Vascular Disorder Additional Past Medical History / Comment(s): hx Kidney Stones, Chronic N/T BILAT LEGS, WITH BLE EDEMA, states has had lymphedema with weeping valeria lower legs, degenerative arthritis, hx hepatitis C, hx cervical cancer, PVD Last Myocardial Infarction Date:: 2009 History of Any Multi-Drug Resistant Organisms: VRE Date of last positivie culture/infection: 01/14/21 MDRO Source:: VRE URINE Past Surgical History: Appendectomy, Cholecystectomy, Heart Catheterization With Stent, Hysterectomy, Joint Replacement, Pacemaker Additional Past Surgical History / Comment(s): valeria lower ext vascular repairs,2-6-17 abd. aortogram, ERCP, 4 cardiac stents, left hip replacement Past Anesthesia/Blood Transfusion Reactions: Family History of Problems w/ Anesthesia Additional Past Anesthesia/Blood Transfusion Reaction / Comment(s): sister-long time to come out Date of Last Stent Placement:: 2010? Type of Cardiac Device: Permanent Pacemaker Device Placement Date:: 2014 Past Psychological History: No Psychological Hx Reported Smoking Status: Former smoker Past Alcohol Use History: None Reported Past Drug Use History: None Reported - Past Family History Son(s) Family Medical History: Cancer Additional Family Medical History / Comment(s): Patient has 3 sons and one has been diagnosed with bladder cancer. Brother(s) Family Medical History: Cancer Additional Family Medical History / Comment(s): Patient has 2 brothers and one was diagnosed with esophageal cancer with metastatic disease. Daughter(s) Family Medical History: Cancer (patient has 3 daughters one of them was diagnosed with leukemia.) Additional Family Medical History / Comment(s): Patient has 3 daughters and one diagnosed with leukemia. Medications and Allergies Home Medications Medication Instructions Recorded Confirmed Type Levothyroxine Sodium [Synthroid] 50 mcg PO DAILY 11/07/14 05/04/23 History Rosuvastatin [Crestor] 20 mg PO HS 10/09/16 05/04/23 History Famotidine [Pepcid] 20 mg PO DAILY 03/06/19 05/04/23 History Potassium Chloride ER [K-Dur 20] 20 meq PO BID 03/06/19 05/04/23 History Rivaroxaban [Xarelto] 15 mg PO W/SUPPER 07/23/21 05/04/23 History Metoprolol Succinate (ER) [Toprol 100 mg PO BID 05/04/23 05/04/23 History Xl] SILVER sulfADIAZINE Cream 1 applic TOPICAL BID PRN 05/04/23 05/04/23 History [Silvadene 1% Cream] Torsemide [Demadex] 20 mg PO SUTUTHSA 05/04/23 05/04/23 History Torsemide [Demadex] 40 mg PO MOWEFR 05/04/23 05/04/23 History allopurinoL [Zyloprim] 100 mg PO DAILY 05/04/23 05/04/23 History Allergies Allergy/AdvReac Type Severity Reaction Status Date / Time hydromorphone [From Dilaudid] AdvReac Nausea & Verified 05/04/23 13:07 Vomiting lorazepam [From Ativan] AdvReac Hallucinati Verified 05/04/23 13:07 ons Physical Exam Vitals: Vital Signs Temp Pulse Resp BP Pulse Ox 05/04/23 15:07 93.0 F L 62 18 89/49 05/04/23 14:47 92.8 F L 60 16 105/55 97 05/04/23 14:38 92.7 F L 60 18 96/68 96 05/04/23 12:54 61 18 107/56 100 05/04/23 10:49 60 18 103/46 98 Intake and Output 05/04/23 05/04/23 05/04/23 06:59 14:59 22:59 Intake Total 0 Balance 0 Intake: Blood Product 0 Rc Pheresis 2 As3 Unit 0 [id number] Other: Weight 79.379 kg Results CBC & Chem 7: 05/04/23 11:11 05/04/23 11:11 Labs: Abnormal Lab Results - Last 24 Hours (Table) 05/04/23 05/04/23 05/04/23 Range/Units 11:11 11:11 11:11 RBC 2.24 L (3.80-5.40) m/uL Hgb 6.6 L* (11.4-16.0) gm/dL Hct 21.9 L (34.0-46.0) % MCHC 29.9 L (31.0-37.0) g/dL RDW 17.7 H (11.5-15.5) % PT 15.5 H (10.0-12.5) sec INR 1.5 H (<1.2) APTT 30.3 H (22.0-30.0) sec BUN (7-17) mg/dL Creatinine (0.52-1.04) mg/dL Glucose (74-99) mg/dL Plasma Lactic Acid Tyler (0.7-2.0) mmol/L Albumin (3.5-5.0) g/dL Urine Appearance (Clear) Urine Protein (Negative) Urine WBC (0-5) /hpf Urine WBC Clumps (None) /hpf Urine Bacteria (None) /hpf Urine Mucus (None) /hpf Urine Yeast (Budding) (None) /hpf Stool Occult Blood Positive H (Negative) Crossmatch 05/04/23 05/04/23 05/04/23 Range/Units 11:11 11:11 11:11 RBC (3.80-5.40) m/uL Hgb (11.4-16.0) gm/dL Hct (34.0-46.0) % MCHC (31.0-37.0) g/dL RDW (11.5-15.5) % PT (10.0-12.5) sec INR (<1.2) APTT (22.0-30.0) sec BUN 49 H (7-17) mg/dL Creatinine 1.77 H (0.52-1.04) mg/dL Glucose 144 H (74-99) mg/dL Plasma Lactic Acid Tyler 2.1 H* (0.7-2.0) mmol/L Albumin 3.1 L (3.5-5.0) g/dL Urine Appearance (Clear) Urine Protein (Negative) Urine WBC (0-5) /hpf Urine WBC Clumps (None) /hpf Urine Bacteria (None) /hpf Urine Mucus (None) /hpf Urine Yeast (Budding) (None) /hpf Stool Occult Blood (Negative) Crossmatch See Detail 05/04/23 Range/Units 11:15 RBC (3.80-5.40) m/uL Hgb (11.4-16.0) gm/dL Hct (34.0-46.0) % MCHC (31.0-37.0) g/dL RDW (11.5-15.5) % PT (10.0-12.5) sec INR (<1.2) APTT (22.0-30.0) sec BUN (7-17) mg/dL Creatinine (0.52-1.04) mg/dL Glucose (74-99) mg/dL Plasma Lactic Acid Tyler (0.7-2.0) mmol/L Albumin (3.5-5.0) g/dL Urine Appearance Slightly Cloudy H (Clear) Urine Protein 1+ H (Negative) Urine WBC >182 H (0-5) /hpf Urine WBC Clumps Many H (None) /hpf Urine Bacteria Many H (None) /hpf Urine Mucus Rare H (None) /hpf Urine Yeast (Budding) Moderate H (None) /hpf Stool Occult Blood (Negative) Crossmatch
[2023-05-04] MEDS: ACETAMINOPHEN TAB 325 MG TAB PO PRN (18:28)
[2023-05-04 20:30] LABS: Anisocytosis Slight; HCT 22.8 % (34.0-46.0); HGB 7.2 gm/dL (11.4-16.0); Hypochromasia Marked; MCH 30.4 pg (25.0-35.0); MCHC 31.7 g/dL (31.0-37.0); Macrocytosis Slight; Platelet Count 146 k/uL (150-450); Poikilocytosis Moderate; RBC 2.37 m/uL (3.80-5.40); RDW 17.3 % (11.5-15.5); WBC 5.4 k/uL (3.8-10.6)
[2023-05-04] MEDS ORDERED: HYDROcodone/APAP 5-325MG 1 EACH TAB PO STA (20:46)
[2023-05-04] MEDS: PANTOPRAZOLE 40 MG/10 ML VIAL IVP SCH (21:08)
[2023-05-04] MEDS: ATORVASTATIN 40 MG TAB PO SCH (21:09)
[2023-05-04] MEDS: METOPROLOL SUCCINATE (ER) 100 MG TAB.ER.24H PO SCH (22:51)
[2023-05-05] MEDS: SODIUM CHLORIDE 0.9% 1,000 ML IV SCH (04:32)
[2023-05-05] MEDS: LEVOTHYROXINE 50 MCG TAB PO SCH (06:26)
[2023-05-05] MEDS: PANTOPRAZOLE 40 MG/10 ML VIAL IVP SCH ×2 (10:53→20:38)
[2023-05-05 10:59] LABS: Anisocytosis Slight; HCT 23.9 % (34.0-46.0); HGB 7.2 gm/dL (11.4-16.0); Hypochromasia Marked; MCH 29.8 pg (25.0-35.0); MCHC 30.3 g/dL (31.0-37.0); MCV 98.1 fL (80.0-100.0); Macrocytosis Slight; Mean Platelet Volume 8.6; Platelet Count 140 k/uL (150-450); Poikilocytosis Moderate; RBC 2.43 m/uL (3.80-5.40); RDW 17.4 % (11.5-15.5); WBC 3.4 k/uL (3.8-10.6)
[2023-05-05 11:19] LABS: African American GFR (CKD) 28 (>60 ml/min/1.73 sqM); Anion Gap 7 mmol/L; Blood Urea Nitrogen 42 mg/dL (7-17); Calcium 8.6 mg/dL (8.4-10.2); Carbon Dioxide 24 mmol/L (22-30); Chloride 112 mmol/L (98-107); Glucose 75 mg/dL (74-99); Non-African American GFR(CKD) 25 (>60 ml/min/1.73 sqM); Potassium 4.3 mmol/L (3.5-5.1); Sodium 143 mmol/L (137-145)
--- NOTE | 2023-05-05 11:31 | P.PN ---
Subjective Progress Note Date: 05/05/23 Hospital Course: 87-year-old female with history of atrial fibrillation on Xarelto, hyp othyroidism, dyslipidemia, diastolic CHF, hypertension, CAD status post stent, arrhythmia status post pacemaker presenting with weakness and fatigue. In the ED, temperature was 92.7, pulse 60, respiratory rate 18, blood pressure 103/46, saturating at 98% on room air. Hemoglobin 6.6, WBC 4.5, platelet 154, INR 1.5, APTT 30.3, creatinine at baseline 1.77, lactate 2.1, urinalysis shows large leukocyte esterase and negative nitrates. Troponin negative. Patient admitted for acute GI bleed, GI consulted. She is status post 1 PRBCs. Hemoglobin currently stable. Subjective: Patient seen and examined at bedside. No acute events overnight. Denies any significant pain. Still a little fatigued. Myrick catheter in place. Pertinent positives and negatives as discussed above, a complete review of systems was performed and all other systems are negative. Vitals Signs Reviewed. General: nontoxic, no distress, appears at stated age Derm: warm, dry Head: atraumatic, normocephalic, symmetric Eyes: EOMI, no lid lag, anicteric sclera Mouth: no lip lesion, mucus membranes moist Cardiovascular: S1S2 reg, no murmur Lungs: CTA bilateral, no rhonchi, no rales , no accessory muscle use Abdominal: soft, nontender to palpation, no guarding, no appreciable organomegaly Ext: no gross muscle atrophy, no edema, no contractures Neuro: CN II-XI grossly intact, no focal neuro deficits Psych: Alert, oriented, appropriate affect Data Reviewed Today: Pertinent Labs: Hemoglobin 7.2, platelet 140, creatinine 1.83 Imaging: No new imaging Assessment and Plan: Patient is critically ill, prognosis guarded. Active: Acute blood loss anemia, status post 1 unit of PRBCs Acute upper GI bleed Atrial fibrillation on anticoagulation -Hemoglobin stable -CBC every 12 hours -40 mg IV pantoprazole twice a day -Hold anticoagulation -GI consulted, pending recommendations -Started on diet per GI -Discontinue IV fluids as patient has history of CHF -Hold antihypertensives, diuretics, continue metoprolol Resolved: Hypothermia Lactic acidosis Chronic: Chronic kidney disease, stage III Diastolic CHF, not in exacerbation Hypertension CAD status post stent Arrhythmia status post pacemaker Hypothyroidism DVT ppx: SCDs Code status: DNR/DNI Anticipated discharge place: Pending clinical course Anticipated discharge time: Pending clinical course Objective - Vital Signs Vital signs: Vital Signs Temp 97.4 F L 05/05/23 06:17 Pulse 60 05/05/23 08:00 Resp 17 05/05/23 08:00 BP 116/59 05/05/23 08:00 Pulse Ox 98 05/05/23 09:05 FiO2 Intake & Output 05/04/23 05/05/23 05/05/23 18:59 06:59 18:59 Intake Total 275 675 Output Total 725 Balance 275 -50 Weight 79.379 kg 79.379 kg Intake: Intake, IV Titration 675 Amount Sodium Chloride 0.9% 1, 675 000 ml @ 75 mls/hr IV . [id number] [facility] Rx#:[id number] Blood Product 275 Rc Pheresis 2 As3 Unit 275 [id number] Output: Urine 725 Other: Voiding Method Indwelling Catheter - Labs CBC & Chem 7: 05/05/23 10:18 05/05/23 10:18 Labs: Abnormal Lab Results - Last 24 Hours (Table) 05/04/23 05/04/23 05/04/23 Range/Units 11:11 11:11 11:11 WBC (3.8-10.6) k/uL RBC 2.24 L (3.80-5.40) m/uL Hgb 6.6 L* (11.4-16.0) gm/dL Hct 21.9 L (34.0-46.0) % MCHC 29.9 L (31.0-37.0) g/dL RDW 17.7 H (11.5-15.5) % Plt Count (150-450) k/uL PT 15.5 H (10.0-12.5) sec INR 1.5 H (<1.2) APTT 30.3 H (22.0-30.0) sec Chloride (98-107) mmol/L BUN 49 H (7-17) mg/dL Creatinine 1.77 H (0.52-1.04) mg/dL Glucose 144 H (74-99) mg/dL Plasma Lactic Acid Tyler (0.7-2.0) mmol/L Albumin 3.1 L (3.5-5.0) g/dL Urine Appearance (Clear) Urine Protein (Negative) Urine WBC (0-5) /hpf Urine WBC Clumps (None) /hpf Urine Bacteria (None) /hpf Urine Mucus (None) /hpf Urine Yeast (Budding) (None) /hpf Crossmatch 05/04/23 05/04/23 05/04/23 Range/Units 11:11 11:11 11:15 WBC (3.8-10.6) k/uL RBC (3.80-5.40) m/uL Hgb (11.4-16.0) gm/dL Hct (34.0-46.0) % MCHC (31.0-37.0) g/dL RDW (11.5-15.5) % Plt Count (150-450) k/uL PT (10.0-12.5) sec INR (<1.2) APTT (22.0-30.0) sec Chloride (98-107) mmol/L BUN (7-17) mg/dL Creatinine (0.52-1.04) mg/dL Glucose (74-99) mg/dL Plasma Lactic Acid Tyler 2.1 H* (0.7-2.0) mmol/L Albumin (3.5-5.0) g/dL Urine Appearance Slightly Cloudy H (Clear) Urine Protein 1+ H (Negative) Urine WBC >182 H (0-5) /hpf Urine WBC Clumps Many H (None) /hpf Urine Bacteria Many H (None) /hpf Urine Mucus Rare H (None) /hpf Urine Yeast (Budding) Moderate H (None) /hpf Crossmatch See Detail 05/04/23 05/05/23 05/05/23 Range/Units 20:01 10:18 10:18 WBC 3.4 L (3.8-10.6) k/uL RBC 2.37 L 2.43 L (3.80-5.40) m/uL Hgb 7.2 L 7.2 L (11.4-16.0) gm/dL Hct 22.8 L 23.9 L (34.0-46.0) % MCHC 30.3 L (31.0-37.0) g/dL RDW 17.3 H 17.4 H (11.5-15.5) % Plt Count 146 L 140 L (150-450) k/uL PT (10.0-12.5) sec INR (<1.2) APTT (22.0-30.0) sec Chloride 112 H (98-107) mmol/L BUN 42 H (7-17) mg/dL Creatinine 1.83 H (0.52-1.04) mg/dL Glucose (74-99) mg/dL Plasma Lactic Acid Tyler (0.7-2.0) mmol/L Albumin (3.5-5.0) g/dL Urine Appearance (Clear) Urine Protein (Negative) Urine WBC (0-5) /hpf Urine WBC Clumps (None) /hpf Urine Bacteria (None) /hpf Urine Mucus (None) /hpf Urine Yeast (Budding) (None) /hpf Crossmatch
--- NOTE | 2023-05-05 12:51 | P.CONS ---
History of Present Illness - Reason for Consult Consult date: 05/05/23 Anemia, GI bleed Requesting physician: Fazal Whitaker - Chief Complaint Weakness, melena - History of Present Illness This is a pleasant 87-year-old female who was brought into the emergency department for increased weakness, fatigue and melena. Patient has been having dark stools she states her last 2 weeks duration. She has been feeling extremely weak and tired. She has a history of atrial fibrillation on Xarelto last dose taken on Wednesday. Past medical history also includes coronary artery disease status post stent and pacemaker, heart failure, COPD, hyperlipidemia, hypertension, thyroid disorder, vascular disorder, history of hepatitis C treated and history of cervical cancer. Patient denies any NSAID use. Last endoscopy was done 12/06/[address] Whatley for screening colonoscopy with findings of colon polyps status post polypectomy and extensive left-sided diverticulosis. Patient denies any previous EGD. She was admitted with a hemoglobin of 6.6 and received 1 unit of blood with a repeat hemoglobin of 7.2. She states her last bowel movement was yesterday. She also states that she does not want to undergo a colonoscopy. She denies any abdominal pain, no nausea or vomiting. Labs WBC 3.4 hemoglobin 7.2 hematocrit 23.9 platelet count 140,000 sodium 143 potassium 4.3 BUN 42 creatinine 1.83 total bilirubin 0.7 AST 34 ALT 19 alkaline phosphatase 112 Review of Systems REVIEW OF SYSTEMS: CARDIOPULMONARY: No chest pain or shortness of breath. Gastrointestinal: No abdominal pain. No nausea or vomiting. No hematemesis, coffee-ground emesis. Melena for the last 2 weeks duration. GENITOURINARY: No dysuria or hematuria. MUSCULOSKELETAL: Reports normal range of motion., Joint pain. SKIN: No rashes. No jaundice. ENDOCRINE: No chills, fevers. No excessive weight gain or loss. No polydipsia or polyuria. PSYCHIATRIC: Unremarkable. NEUROLOGY: No change in mental status. Denies dizziness, headache. ENT: Vision unremarkable. CONSTITUTIONAL: No recent weight loss. No fever, chills, night sweats increased weakness, fatigue. 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 aortogram, ERCP, 4 cardiac stents, left hip replacement Past Anesthesia/Blood Transfusion Reactions: Family History of Problems w/ Anesthesia Additional Past Anesthesia/Blood Transfusion Reaction / Comm: sister-long time to come out Date of Last Stent Placement:: 2010? Type of Cardiac Device: Permanent Pacemaker Device Placement Date:: 2014 Smoking Status: Former smoker - Past Family History Son(s) Family Medical History: Cancer Additional Family Medical History / Comment(s): Patient has 3 sons and one has been diagnosed with bladder cancer. Brother(s) Family Medical History: Cancer Additional Family Medical History / Comment(s): Patient has 2 brothers and one was diagnosed with esophageal cancer with metastatic disease. Daughter(s) Family Medical History: Cancer (patient has 3 daughters one of them was diagnosed with leukemia.) Additional Family Medical History / Comment(s): Patient has 3 daughters and one diagnosed with leukemia. Medications and Allergies Home Medications Medication Instructions Recorded Confirmed Type Levothyroxine Sodium [Synthroid] 50 mcg PO DAILY 11/07/14 05/04/23 History Rosuvastatin [Crestor] 20 mg PO HS 10/09/16 05/04/23 History Famotidine [Pepcid] 20 mg PO DAILY 03/06/19 05/04/23 History Potassium Chloride ER [K-Dur 20] 20 meq PO BID 03/06/19 05/04/23 History Rivaroxaban [Xarelto] 15 mg PO W/SUPPER 07/23/21 05/04/23 History Metoprolol Succinate (ER) [Toprol 100 mg PO BID 05/04/23 05/04/23 History Xl] SILVER sulfADIAZINE Cream 1 applic TOPICAL BID PRN 05/04/23 05/04/23 History [Silvadene 1% Cream] Torsemide [Demadex] 20 mg PO SUTUTHSA 05/04/23 05/04/23 History Torsemide [Demadex] 40 mg PO MOWEFR 05/04/23 05/04/23 History allopurinoL [Zyloprim] 100 mg PO DAILY 05/04/23 05/04/23 History Allergies Allergy/AdvReac Type Severity Reaction Status Date / Time hydromorphone [From Dilaudid] AdvReac Nausea & Verified 05/04/23 13:07 Vomiting lorazepam [From Ativan] AdvReac Hallucinati Verified 05/04/23 13:07 ons Physical Exam Vitals: Vital Signs Temp Pulse Pulse Resp BP BP Pulse Ox 05/05/23 09:05 98 05/05/23 08:00 60 17 116/59 99 05/05/23 06:17 97.4 F L 05/05/23 05:56 102/68 05/05/23 04:00 95.7 F L 62 18 108/70 98 05/05/23 00:00 97.4 F L 60 15 92/55 98 05/04/23 22:41 97.6 F 60 18 89/60 97 05/04/23 21:21 35.8 F L 64 18 111/43 98 05/04/23 21:00 97.0 F L 60 18 111/43 99 05/04/23 20:00 62 18 97/53 98 05/04/23 18:25 97.0 F L 65 18 98/50 98 05/04/23 17:37 96.4 F L 60 18 99/40 98 05/04/23 16:36 94.8 F L 60 16 99/56 99 05/04/23 16:00 93.9 F L 60 16 90/59 98 05/04/23 15:07 93.0 F L 62 18 89/49 05/04/23 14:47 92.8 F L 60 16 105/55 97 05/04/23 14:38 92.7 F L 60 18 96/68 96 05/04/23 12:54 61 18 107/56 100 05/04/23 10:49 60 18 103/46 98 Intake and Output 05/04/23 05/05/23 05/05/23 22:59 06:59 14:59 Intake Total 275 675 Output Total 400 325 Balance -125 350 Intake: Intake, IV Titration 675 Amount Sodium Chloride 0.9% 1, 675 000 ml @ 75 mls/hr IV . [id number] [facility] Rx#:[id number] Blood Product 275 Rc Pheresis 2 As3 Unit 275 [id number] Output: Urine 400 325 Other: Voiding Method Indwelling Catheter Weight 79.379 kg General appearance: The patient is alert, oriented, appears in no acute distress. HET: Head is normocephalic and atraumatic. Conjunctiva pink. Sclera anicteric. Neck: Supple without lymphadenopathy. Trachea midline. Heart: Regular. Lungs: Equal expansion, normal respiratory effort. Abdomen: Soft, nontender, nondistended with bowel sounds. No guarding or rigidity. Skin: No rashes. No jaundice. Extremities: Normal skin color and turgor. No pedal edema. Neurological: No focal deficits. Alert and oriented x3. Results CBC & Chem 7: 05/05/23 10:18 05/05/23 10:18 Labs: Abnormal Lab Results - Last 24 Hours (Table) 05/04/23 05/04/23 05/04/23 Range/Units 11:11 11:11 11:11 RBC 2.24 L (3.80-5.40) m/uL Hgb 6.6 L* (11.4-16.0) gm/dL Hct 21.9 L (34.0-46.0) % MCHC 29.9 L (31.0-37.0) g/dL RDW 17.7 H (11.5-15.5) % Plt Count (150-450) k/uL PT 15.5 H (10.0-12.5) sec INR 1.5 H (<1.2) APTT 30.3 H (22.0-30.0) sec BUN (7-17) mg/dL Creatinine (0.52-1.04) mg/dL Glucose (74-99) mg/dL Plasma Lactic Acid Tyler (0.7-2.0) mmol/L Albumin (3.5-5.0) g/dL Urine Appearance (Clear) Urine Protein (Negative) Urine WBC (0-5) /hpf Urine WBC Clumps (None) /hpf Urine Bacteria (None) /hpf Urine Mucus (None) /hpf Urine Yeast (Budding) (None) /hpf Stool Occult Blood Positive H (Negative) Crossmatch 05/04/23 05/04/23 05/04/23 Range/Units 11:11 11:11 11:11 RBC (3.80-5.40) m/uL Hgb (11.4-16.0) gm/dL Hct (34.0-46.0) % MCHC (31.0-37.0) g/dL RDW (11.5-15.5) % Plt Count (150-450) k/uL PT (10.0-12.5) sec INR (<1.2) APTT (22.0-30.0) sec BUN 49 H (7-17) mg/dL Creatinine 1.77 H (0.52-1.04) mg/dL Glucose 144 H (74-99) mg/dL Plasma Lactic Acid Tyler 2.1 H* (0.7-2.0) mmol/L Albumin 3.1 L (3.5-5.0) g/dL Urine Appearance (Clear) Urine Protein (Negative) Urine WBC (0-5) /hpf Urine WBC Clumps (None) /hpf Urine Bacteria (None) /hpf Urine Mucus (None) /hpf Urine Yeast (Budding) (None) /hpf Stool Occult Blood (Negative) Crossmatch See Detail 05/04/23 05/04/23 Range/Units 11:15 20:01 RBC 2.37 L (3.80-5.40) m/uL Hgb 7.2 L (11.4-16.0) gm/dL Hct 22.8 L (34.0-46.0) % MCHC (31.0-37.0) g/dL RDW 17.3 H (11.5-15.5) % Plt Count 146 L (150-450) k/uL PT (10.0-12.5) sec INR (<1.2) APTT (22.0-30.0) sec BUN (7-17) mg/dL Creatinine (0.52-1.04) mg/dL Glucose (74-99) mg/dL Plasma Lactic Acid Tyler (0.7-2.0) mmol/L Albumin (3.5-5.0) g/dL Urine Appearance Slightly Cloudy H (Clear) Urine Protein 1+ H (Negative) Urine WBC >182 H (0-5) /hpf Urine WBC Clumps Many H (None) /hpf Urine Bacteria Many H (None) /hpf Urine Mucus Rare H (None) /hpf Urine Yeast (Budding) Moderate H (None) /hpf Stool Occult Blood (Negative) Crossmatch Assessment and Plan (1) Melena Narrative/Plan: 87-year-old female brought in for weakness found to be anemic with a hemoglobin of 6.6 and reported black stools over last 2 weeks duration. Patient denies any previous history of GI bleed. She is on Cymbalta for atrial fibrillation but reportedly hasn't taken any since 05/02/2023. No previous EGD and screening colonoscopy done in November 2015 with findings of colon polyps status post polypectomy and extensive left-sided diverticulosis. Patient was given a unit of blood with a repeat hemoglobin of 7.2. No further reported bleeding at this time. Patient does voice that she would consider EGD however would like to give it another day to watch for any bleeding and states that she will not have a colonoscopy. This is likely related to an upper GI bleed with dark stool, possible etiologies include peptic ulcer disease, gastritis, esophagitis, AVM or other possible etiologies. Will continue to monitor for now consider possible EGD if patient continues to have black stools or drop in hemoglobin. Current Visit: Yes Status: Acute Code(s): K92.1 - MELENA SNOMED Code(s): 9262765 (2) Coronary artery disease Current Visit: Yes Status: Acute Code(s): I25.10 - ATHSCL HEART DISEASE OF [place] CORONARY ARTERY W/O ANG PCTRS SNOMED Code(s): 17415508 (3) A-fib Current Visit: No Status: Acute Code(s): I48.91 - UNSPECIFIED ATRIAL FIBRILLATION SNOMED Code(s): 63372856 (4) Acute renal failure Current Visit: No Status: Acute Code(s): N17.9 - ACUTE KIDNEY FAILURE, UNSPECIFIED SNOMED Code(s): 23237624 (5) COPD (chronic obstructive pulmonary disease) Current Visit: No Status: Acute Code(s): J44.9 - CHRONIC OBSTRUCTIVE PULMONARY DISEASE, UNSPECIFIED SNOMED Code(s): 91694409 (6) Anemia Current Visit: Yes Status: Acute Code(s): D64.9 - ANEMIA, UNSPECIFIED SNOMED Code(s): 317005633 Plan: 1. Continue symptomatic and supportive care 2. Daily CBC, transfuse for hemoglobin less than 7 3. Protonix 40 mg daily 4. Hold anticoagulation 5. Avoid NSAIDs 6. Patient may have a heart healthy diet 7. Nothing by mouth after midnight 8. Continue to monitor for signs of GI bleed. Possible EGD tomorrow or Wednesday. Thank you for this consultation, we will continue to follow. Dr. Talib Whatley I agree with the dictator's note, documented as a scribe by Lisa Lopez.
[2023-05-05] MEDS: METOPROLOL SUCCINATE (ER) 100 MG TAB.ER.24H PO SCH ×2 (14:17→20:37)
[2023-05-05] MEDS: allopurinoL 100 MG TAB PO SCH (16:51)
[2023-05-05] MEDS: ATORVASTATIN 40 MG TAB PO SCH (20:38)
[2023-05-05] MEDS: ACETAMINOPHEN TAB 325 MG TAB PO PRN (21:58)
[2023-05-05 22:03] LABS: Anisocytosis Slight; HGB 7.1 gm/dL (11.4-16.0); Hypochromasia Marked; MCH 29.9 pg (25.0-35.0); MCHC 30.8 g/dL (31.0-37.0); MCV 97.1 fL (80.0-100.0); Macrocytosis Slight; Mean Platelet Volume 8.9; Platelet Count 125 k/uL (150-450); Poikilocytosis Marked; RBC 2.37 m/uL (3.80-5.40); RDW 17.5 % (11.5-15.5); WBC 3.8 k/uL (3.8-10.6)
[2023-05-06] MEDS: LEVOTHYROXINE 50 MCG TAB PO SCH (06:19)
[2023-05-06] MEDS: PANTOPRAZOLE 40 MG/10 ML VIAL IVP SCH ×2 (09:45→20:13)
[2023-05-06] MEDS: allopurinoL 100 MG TAB PO SCH (09:45)
[2023-05-06] MEDS: METOPROLOL SUCCINATE (ER) 100 MG TAB.ER.24H PO SCH (09:52)
[2023-05-06 10:23] LABS: Anisocytosis Slight; HCT 23.5 % (34.0-46.0); HGB 7.1 gm/dL (11.4-16.0); Hypochromasia Marked; MCH 29.5 pg (25.0-35.0); MCHC 30.1 g/dL (31.0-37.0); MCV 98.1 fL (80.0-100.0); Macrocytosis Slight; Mean Platelet Volume 9.4; Platelet Count 132 k/uL (150-450); Poikilocytosis Marked; RBC 2.39 m/uL (3.80-5.40); RDW 17.6 % (11.5-15.5); WBC 5.6 k/uL (3.8-10.6)
[2023-05-06 10:25] LABS: African American GFR (CKD) 28 (>60 ml/min/1.73 sqM); Anion Gap 5 mmol/L; Blood Urea Nitrogen 37 mg/dL (7-17); Calcium 8.8 mg/dL (8.4-10.2); Carbon Dioxide 23 mmol/L (22-30); Chloride 109 mmol/L (98-107); Glucose 78 mg/dL (74-99); Non-African American GFR(CKD) 24 (>60 ml/min/1.73 sqM); Potassium 4.4 mmol/L (3.5-5.1); Sodium 137 mmol/L (137-145)
--- NOTE | 2023-05-06 12:21 | P.PN ---
Subjective Progress Note Date: 05/06/23 Hospital Course: 87-year-old female with history of atrial fibrillation on Xarelto, hypothyroid ism, dyslipidemia, diastolic CHF, hypertension, CAD status post stent, arrhythmia status post pacemaker presenting with weakness and fatigue. In the ED, temperature was 92.7, pulse 60, respiratory rate 18, blood pressure 103/46, saturating at 98% on room air. Hemoglobin 6.6, WBC 4.5, platelet 154, INR 1.5, APTT 30.3, creatinine at baseline 1.77, lactate 2.1, urinalysis shows large leukocyte esterase and negative nitrates. Troponin negative. Patient admitted for acute GI bleed, GI consulted. She is status post 1 PRBCs. Hemoglobin currently stable. Pending EGD Subjective: Patient seen and examined at bedside. No acute events overnight. Denies any significant pain. Has some lightheadedness yesterday. Myrick catheter in place. Has not gotten out of bed. Pertinent positives and negatives as discussed above, a complete review of systems was performed and all other systems are negative. Vitals Signs Reviewed. General: nontoxic, no distress, appears at stated age, weak appearing Derm: warm, dry Head: atraumatic, normocephalic, symmetric Eyes: EOMI, no lid lag, anicteric sclera Mouth: no lip lesion, mucus membranes moist Cardiovascular: S1S2 reg, no murmur Lungs: CTA bilateral, no rhonchi, no rales , no accessory muscle use Abdominal: soft, nontender to palpation, no guarding, no appreciable organomegaly Ext: no gross muscle atrophy, no edema, no contractures Neuro: CN II-XI grossly intact, no focal neuro deficits Psych: Alert, oriented, appropriate affect Data Reviewed Today: Pertinent Labs: Hemoglobin 7.1, platelet 132, creatinine 1.7, TSH 2.240 Imaging: No new imaging Assessment and Plan: Patient is critically ill, prognosis guarded. Active: Acute blood loss anemia, status post 1 unit of PRBCs Acute upper GI bleed Atrial fibrillation on anticoagulation Hypotension -Hemoglobin stable -CBC every 12 hours -40 mg IV pantoprazole twice a day -Hold anticoagulation -Discussed management with GI, pending EGD today -Currently nothing by mouth -Discontinue IV fluids as patient has history of CHF -Hold antihypertensives, diuretics, metoprolol dose decreased to 25 twice a day Resolved: Hypothermia Lactic acidosis Chronic: Chronic kidney disease, stage III Diastolic CHF, not in exacerbation Hypertension CAD status post stent Arrhythmia status post pacemaker Hypothyroidism DVT ppx: SCDs Code status: DNR/DNI Anticipated discharge place: Pending clinical course Anticipated discharge time: Pending clinical course Objective - Vital Signs Vital signs: Vital Signs Temp 97.5 F L 05/06/23 08:10 Pulse 60 05/06/23 08:10 Resp 17 05/06/23 08:10 BP 109/73 05/06/23 08:10 Pulse Ox 97 05/06/23 08:27 FiO2 Intake & Output 05/05/23 05/06/23 05/06/23 18:59 06:59 18:59 Intake Total 118 0 Output Total 650 200 Balance 118 -650 -200 Intake: Oral 118 0 Output: Urine 650 200 Other: Voiding Method Indwelling Catheter Indwelling Catheter Indwelling Catheter - Labs CBC & Chem 7: 05/06/23 09:05 05/06/23 09:05 Labs: Abnormal Lab Results - Last 24 Hours (Table) 05/05/23 05/06/23 05/06/23 Range/Units 21:05 09:05 09:05 RBC 2.37 L 2.39 L (3.80-5.40) m/uL Hgb 7.1 L 7.1 L (11.4-16.0) gm/dL Hct 23.0 L 23.5 L (34.0-46.0) % MCHC 30.8 L 30.1 L (31.0-37.0) g/dL RDW 17.5 H 17.6 H (11.5-15.5) % Plt Count 125 L 132 L (150-450) k/uL Chloride 109 H (98-107) mmol/L BUN 37 H (7-17) mg/dL Creatinine 1.87 H (0.52-1.04) mg/dL Microbiology - Last 24 Hours (Table) 05/04/23 11:15 Urine Culture - Preliminary Urine,Voided Gram Neg Bacilli 05/04/23 13:05 Blood Culture - Preliminary Blood 05/04/23 12:50 Blood Culture - Preliminary Blood
[2023-05-06] MEDS ORDERED: PROPOFOL 10 MG/ML 20 ML VIAL IV ONE (14:01)
[2023-05-06] MEDS ORDERED: LIDOCAINE 1% INJ 10MG/ML (20 ML MDV) ONE (14:01)
[2023-05-06] MEDS ORDERED: IV FLUID CONTINUATION 1,000 ML IV ONE (14:09)
--- NOTE | 2023-05-06 14:11 | P.PCN ---
Date of Procedure: 05/06/23 Procedure(s) Performed: BRIEF HISTORY: Patient is a 87-year-old, pleasant, white female admitted hospital with black tarry stools of 3 years duration and hemoglobin of 6.6 g/dL requiring PRBC transition. She is scheduled for an upper endoscopy to evaluate for upper GI source of bleeding.. PROCEDURE PERFORMED: Esophagogastroduodenoscopy with biopsy . PREOPERATIVE DIAGNOSIS: severe anemia and black tarry stools of 3 days' duration. IV sedation per anesthesia. PROCEDURE: After informed consent was obtained, the patient was brought into the endoscopy unit. IV sedation was administered by Anesthesia under continuous monitoring. Initially the Olympus GIF-140 video endoscope was inserted into the mouth. Esophagus intubated without any difficulty. It was gradually advanced into the stomach and duodenum and carefully examined. The bulb and the second part of the duodenum appeared normal. The scope at this time was withdrawn to the stomach, adequately insufflated with air, and upon careful examination, mucosa of the antrum, 5 mm superficial antral ulcer with no active bleeding status post biopsy. Rest of the body, cardia and the fundus appeared normal. The scope was then withdrawn into the esophagus. sliding type hiatal hernia noted. The GE junction was located at 39 cm from the incisors. The esophagus appeared normal. There were no erosions or ulcerations seen and the patient tolerated the procedure well. IMPRESSION: 1. Small hiatal hernia. 2. 5 mm antral ulcer with no active bleeding. RECOMMENDATIONS: The findings of this examination were discussed with the patient . With the biopsy results. She will continue with Protonix 40 mg daily. Diet will be advanced as tolerated. Resume Xarelto tomorrow..
[2023-05-06] MEDS: ATORVASTATIN 40 MG TAB PO SCH (20:13)
[2023-05-06] MEDS: ACETAMINOPHEN TAB 325 MG TAB PO PRN (20:13)
[2023-05-06] MEDS: METOPROLOL SUCCINATE (ER) 25 MG TAB.ER.24H PO SCH (20:13)
[2023-05-06 21:20] LABS: Anisocytosis Slight; HCT 23.4 % (34.0-46.0); HGB 7.1 gm/dL (11.4-16.0); Hypochromasia Marked; MCH 29.6 pg (25.0-35.0); MCHC 30.2 g/dL (31.0-37.0); MCV 98.2 fL (80.0-100.0); Macrocytosis Slight; Mean Platelet Volume 9.5; Platelet Count 117 k/uL (150-450); Poikilocytosis Moderate; RBC 2.38 m/uL (3.80-5.40); RDW 17.2 % (11.5-15.5); WBC 4.9 k/uL (3.8-10.6)
[2023-05-07] MEDS: LEVOTHYROXINE 50 MCG TAB PO SCH (06:11)
[2023-05-07 08:58] LABS: Anisocytosis Slight; HCT 24.2 % (34.0-46.0); HGB 7.2 gm/dL (11.4-16.0); Hypochromasia Marked; MCH 29.4 pg (25.0-35.0); MCHC 29.7 g/dL (31.0-37.0); MCV 99.2 fL (80.0-100.0); Macrocytosis Slight; Mean Platelet Volume 10.8; Platelet Count 100 k/uL (150-450); Poikilocytosis Moderate; RBC 2.44 m/uL (3.80-5.40); RDW 17.4 % (11.5-15.5)
[2023-05-07] MEDS: PANTOPRAZOLE 40 MG/10 ML VIAL IVP SCH ×2 (09:12→20:37)
[2023-05-07] MEDS: METOPROLOL SUCCINATE (ER) 25 MG TAB.ER.24H PO SCH ×2 (09:12→20:37)
[2023-05-07] MEDS: allopurinoL 100 MG TAB PO SCH (09:12)
[2023-05-07] MEDS ORDERED: TORSEMIDE 20 MG TAB PO SCH (11:30)
--- NOTE | 2023-05-07 11:31 | P.PN ---
Subjective Progress Note Date: 05/07/23 Hospital Course: 87-year-old female with history of atrial fibrillation on Xarelto, hypothyroid ism, dyslipidemia, diastolic CHF, hypertension, CAD status post stent, arrhythmia status post pacemaker presenting with weakness and fatigue. In the ED, temperature was 92.7, pulse 60, respiratory rate 18, blood pressure 103/46, saturating at 98% on room air. Hemoglobin 6.6, WBC 4.5, platelet 154, INR 1.5, APTT 30.3, creatinine at baseline 1.77, lactate 2.1, urinalysis shows large leukocyte esterase and negative nitrates. Troponin negative. Patient admitted for acute GI bleed, GI consulted. She is status post 1 PRBCs. Hemoglobin currently stable. EGD showed small hiatal hernia and 5 mm antral ulcer with no active bleeding, biopsies pending, restarted on anti-coagulation. Patient pend ing discharge to subacute rehab. Subjective: Patient seen and examined at bedside. No acute events overnight. Extremely weak, just, at the bed into the chair. Has a Myrick catheter in place. Pertinent positives and negatives as discussed above, a complete review of systems was performed and all other systems are negative. Vitals Signs Reviewed. General: nontoxic, no distress, appears at stated age, weak appearing Derm: warm, dry Head: atraumatic, normocephalic, symmetric Eyes: EOMI, no lid lag, anicteric sclera Mouth: no lip lesion, mucus membranes moist Cardiovascular: S1S2 reg, no murmur Lungs: CTA bilateral, no rhonchi, no rales , no accessory muscle use Abdominal: soft, nontender to palpation, no guarding, no appreciable organomegaly Ext: no gross muscle atrophy, no edema, no contractures Neuro: CN II-XI grossly intact, no focal neuro deficits Psych: Alert, oriented, appropriate affect Data Reviewed Today: Pertinent Labs: Hemoglobin 7.2, platelet 100 Imaging: Procedure note reviewed Assessment and Plan: Patient at high risk for decompensation, Xarelto restarted today after recent GI bleed Active: Acute blood loss anemia, status post 1 unit of PRBCs Acute upper GI bleed 5 mm antral ulcer Atrial fibrillation on anticoagulation -Hemoglobin stable -Repeat CBC tomorrow -40 mg IV pantoprazole twice a day -Restarted Xarelto, closely monitor for repeat bleeding -Discussed management with GI, stable for discharge -Tolerating regular diet -Restarted diuretics, metoprolol dose decreased to 25 twice a day Resolved: Hypothermia Lactic acidosis Hypotension Chronic: Chronic kidney disease, stage III Diastolic CHF, not in exacerbation Hypertension CAD status post stent Arrhythmia status post pacemaker Hypothyroidism DVT ppx: xarelto Code status: DNR/DNI Anticipated discharge [facility]: [facility] Anticipated discharge time: Pending clinical course Objective - Vital Signs Vital signs: Vital Signs Temp 96.6 F L 05/07/23 11:02 Pulse 74 05/07/23 11:02 Resp 18 05/07/23 11:02 BP 112/68 05/07/23 11:02 Pulse Ox 98 05/07/23 11:02 FiO2 Intake & Output 05/06/23 05/07/23 05/07/23 18:59 06:59 18:59 Intake Total 170 235 Output Total 500 425 Balance -330 -425 235 Intake: IV 50 10 Invasive Line 2 10 Oral 120 225 Output: Urine 500 425 Other: Voiding Method Indwelling Catheter Indwelling Catheter Indwelling Catheter - Labs CBC & Chem 7: 05/07/23 08:22 05/06/23 09:05 Labs: Abnormal Lab Results - Last 24 Hours (Table) 05/06/23 05/07/23 Range/Units 20:27 08:22 RBC 2.38 L 2.44 L (3.80-5.40) m/uL Hgb 7.1 L 7.2 L (11.4-16.0) gm/dL Hct 23.4 L 24.2 L (34.0-46.0) % MCHC 30.2 L 29.7 L (31.0-37.0) g/dL RDW 17.2 H 17.4 H (11.5-15.5) % Plt Count 117 L 100 L (150-450) k/uL Microbiology - Last 24 Hours (Table) 05/04/23 11:15 Urine Culture - Final Urine,Voided Escherichia coli 05/04/23 13:05 Blood Culture - Preliminary Blood 05/04/23 12:50 Blood Culture - Preliminary Blood
--- NOTE | 2023-05-07 12:54 | P.PN ---
Subjective Progress Note Date: 05/07/23 Principal diagnosis: Anemia, melena This is a pleasant 87-year-old female who was brought into the emergency department for increased weakness, fatigue and melena. Patient has been having dark stools she states her last 2 weeks duration. She has been feeling extremely weak and tired. She has a history of atrial fibrillation on Xarelto last dose taken on Wednesday. Past medical history also includes coronary artery disease status post stent and pacemaker, heart failure, COPD, hyperlipidemia, hypertension, thyroid disorder, vascular disorder, history of hepatitis C treated and history of cervical cancer. Patient denies any NSAID use. Last endoscopy was done 12/06/[address] Whatley for screening colonoscopy with findings of colon polyps status post polypectomy and extensive left-sided diverticulosis. Patient denies any previous EGD. She was admitted with a hemoglobin of 6.6 and received 1 unit of blood with a repeat hemoglobin of 7.2. She states her last bowel movement was yesterday. She also states that she does not want to undergo a colonoscopy. She denies any abdominal pain, no nausea or vomiting. Labs WBC 3.4 hemoglobin 7.2 hematocrit 23.9 platelet count 140,000 sodium 143 potassium 4.3 BUN 42 creatinine 1.83 total bilirubin 0.7 AST 34 ALT 19 alkaline phosphatase 112 05/07/2023 patient was seen and examined today as a follow-up. She is sitting up in the patient recliner eating breakfast. Yesterday she underwent EGD with findings of small hiatal hernia and 5 mm antral ulcer with no active bleeding. Hemoglobin stable at 7.2. No reported further black stools. She denies any abdominal pain, nausea or vomiting. Patient is awaiting placement for ECF. Objective - Vital Signs Vital signs: Vital Signs Temp 96.8 F L 05/07/23 09:06 Pulse 82 05/07/23 09:06 Resp 18 05/07/23 09:06 BP 129/69 05/07/23 09:06 Pulse Ox 98 05/07/23 09:06 FiO2 Intake & Output 05/06/23 05/07/23 05/07/23 18:59 06:59 18:59 Intake Total 170 10 Output Total 500 425 Balance -330 -425 10 Intake: IV 50 10 Invasive Line 2 10 Oral 120 Output: Urine 500 425 Other: Voiding Method Indwelling Catheter Indwelling Catheter Indwelling Catheter - Exam General appearance: The patient is alert, oriented, appears in no acute distress. HET: Head is normocephalic and atraumatic. Conjunctiva pink. Sclera anicteric. Neck: Supple without lymphadenopathy. Abdomen: Soft, nontender, nondistended with bowel sounds. No guarding or rigidity. Extremities: Normal skin color and turgor. No pedal edema Skin: No rashes, no jaundice Neurological: No focal deficits. Alert and oriented. - Labs CBC & Chem 7: 05/07/23 08:22 05/06/23 09:05 Labs: Abnormal Lab Results - Last 24 Hours (Table) 05/06/23 05/06/23 05/06/23 Range/Units 09:05 09:05 20:27 RBC 2.39 L 2.38 L (3.80-5.40) m/uL Hgb 7.1 L 7.1 L (11.4-16.0) gm/dL Hct 23.5 L 23.4 L (34.0-46.0) % MCHC 30.1 L 30.2 L (31.0-37.0) g/dL RDW 17.6 H 17.2 H (11.5-15.5) % Plt Count 132 L 117 L (150-450) k/uL Chloride 109 H (98-107) mmol/L BUN 37 H (7-17) mg/dL Creatinine 1.87 H (0.52-1.04) mg/dL 05/07/23 Range/Units 08:22 RBC 2.44 L (3.80-5.40) m/uL Hgb 7.2 L (11.4-16.0) gm/dL Hct 24.2 L (34.0-46.0) % MCHC 29.7 L (31.0-37.0) g/dL RDW 17.4 H (11.5-15.5) % Plt Count 100 L (150-450) k/uL Chloride (98-107) mmol/L BUN (7-17) mg/dL Creatinine (0.52-1.04) mg/dL Microbiology - Last 24 Hours (Table) 05/04/23 11:15 Urine Culture - Final Urine,Voided Escherichia coli 05/04/23 13:05 Blood Culture - Preliminary Blood 05/04/23 12:50 Blood Culture - Preliminary Blood Assessment and Plan (1) Melena Narrative/Plan: 87-year-old female brought in for weakness found to be anemic with a hemoglobin of 6.6 and reported black stools over last 2 weeks duration. Patient denies any previous history of GI bleed. She is on Cymbalta for atrial fibrillation but reportedly hasn't taken any since 05/02/2023. No previous EGD and screening colonoscopy done in November 2015 with findings of colon polyps status post polypectomy and extensive left-sided diverticulosis. Patient was given a unit of blood with a repeat hemoglobin of 7.2. No further reported bleeding at this time. Patient does voice that she would consider EGD however would like to give it another day to watch for any bleeding and states that she will not have a colonoscopy. This is likely related to an upper GI bleed with dark stool, possible etiologies include peptic ulcer disease, gastritis, esophagitis, AVM or other possible etiologies. Will continue to monitor for now consider possible EGD if patient continues to have black stools or drop in hemoglobin. 05/07/2023 Patient is status post EGD with finding a small hiatal hernia and small nonbleeding antral ulcer. Recommend continuing Protonix 40 mg daily. patient may resume Xarelto today Current Visit: Yes Status: Acute Code(s): K92.1 - MELENA SNOMED Code(s): 9705834 (2) Coronary artery disease Current Visit: Yes Status: Acute Code(s): I25.10 - ATHSCL HEART DISEASE OF [place] CORONARY ARTERY W/O ANG PCTRS SNOMED Code(s): 47079097 (3) A-fib Current Visit: No Status: Acute Code(s): I48.91 - UNSPECIFIED ATRIAL FIBRILLATION SNOMED Code(s): 85341932 (4) Acute renal failure Current Visit: No Status: Acute Code(s): N17.9 - ACUTE KIDNEY FAILURE, UNSPECIFIED SNOMED Code(s): 93348432 (5) COPD (chronic obstructive pulmonary disease) Current Visit: No Status: Acute Code(s): J44.9 - CHRONIC OBSTRUCTIVE PULMONARY DISEASE, UNSPECIFIED SNOMED Code(s): 52845640 (6) Anemia Current Visit: Yes Status: Acute Code(s): D64.9 - ANEMIA, UNSPECIFIED SNOMED Code(s): 426695646 Plan: 1. Continue symptomatic and supportive care 2. May resume Xarelto 3. Protonix 40 mg daily 4. Avoid NSAIDs 5. Patient may have a heart healthy diet 6. She is status post EGD with no active bleeding noted . Thank you for this consultation, patient is cleared from gastroenterology for discharge. We will sign off at this time. Dr. Talib Whatley I agree with the dictator's note, documented as a scribe by Lisa Lopez.
[2023-05-07] MEDS: ACETAMINOPHEN TAB 325 MG TAB PO PRN (14:04)
[2023-05-07] MEDS: RIVAROXABAN 15 MG TAB PO SCH (16:57)
[2023-05-07] MEDS: ATORVASTATIN 40 MG TAB PO SCH (20:37)
[2023-05-08] MEDS: ACETAMINOPHEN TAB 325 MG TAB PO PRN ×2 (03:15→11:24)
[2023-05-08 06:15] LABS: Glucose,Whole Blood 105 mg/dL (70-110)
[2023-05-08] MEDS: LEVOTHYROXINE 50 MCG TAB PO SCH (06:25)
[2023-05-08] MEDS: PANTOPRAZOLE 40 MG/10 ML VIAL IVP SCH (08:07)
[2023-05-08] MEDS: allopurinoL 100 MG TAB PO SCH (08:07)
[2023-05-08] MEDS: METOPROLOL SUCCINATE (ER) 25 MG TAB.ER.24H PO SCH (08:07)
[2023-05-08 08:19] VITALS: RESP 18
[2023-05-08 08:44] LABS: Anisocytosis Slight; HCT 23.7 % (34.0-46.0); HGB 7.3 gm/dL (11.4-16.0); Hypochromasia Marked; MCH 29.6 pg (25.0-35.0); MCHC 30.6 g/dL (31.0-37.0); MCV 96.8 fL (80.0-100.0); Macrocytosis Slight; Mean Platelet Volume 9.5; Platelet Count 112 k/uL (150-450); Poikilocytosis Moderate; RBC 2.45 m/uL (3.80-5.40); WBC 5.5 k/uL (3.8-10.6)
[2023-05-08] MEDS ORDERED: TORSEMIDE 20 MG TAB PO SCH (09:00)
[2023-05-08 10:01] LABS: Basophils # (M) 0.06 k/uL (0-0.2); Eosinophils # (M) 0.22 k/uL (0-0.7); Monocytes # (M) 0.55 k/uL (0-1.0); Neutrophils # (M) 3.08 k/uL (1.3-7.7); Neutrophils % (M) 56 %; Nucleated Red Blood Cells 0 /100 WBC (0-0); Total Cells Counted 100
[2023-05-08 11:42] VITALS: BP 91/55; TEMP 97.4
--- NOTE | 2023-05-08 12:05 | P.DS ---
Providers Date of admission: 05/04/23 12:55 Expected date of discharge: 05/08/23 Attending physician: Mikey Ford MD Consults: 05/04/23 12:54 Consult Physician Routine Consulting Provider: Claudia Whatley Consult Reason/Comments: ANEMIA, GI BLEED Do you want consulting provider notified?: Yes Primary care physician: Parminder Powers MD Hospital Course: Discharge Diagnosis: Acute blood loss anemia, status post 1 unit of PRBCs Acute upper GI bleed 5 mm antral ulcer Atrial fibrillation on anticoagulation Hypothermia Lactic acidosis Hypotension Chronic kidney disease, stage III Diastolic CHF, not in exacerbation Hypertension CAD status post stent Arrhythmia status post pacemaker Hypothyroidism Hospital Course: 87-year-old female with history of atrial fibrillation on Xarelto, hypothyroidism, dyslipidemia, diastolic CHF, hypertension, CAD status post stent, arrhythmia status post pacemaker presenting with weakness and fatigue. In the ED, temperature was 92.7, pulse 60, respiratory rate 18, blood pressure 103/46, saturating at 98% on room air. Hemoglobin 6.6, WBC 4.5, platelet 154, INR 1.5, APTT 30.3, creatinine at baseline 1.77, lactate 2.1, urinalysis shows large leukocyte esterase and negative nitrates. Troponin negative. Patient admitted for acute GI bleed, GI consulted. She is status post 1 PRBCs. EGD showed small hiatal hernia and 5 mm antral ulcer with no active bleeding, biopsies pending, restarted on anti-coagulation. Hemoglobin has been stable. No more melenic stools. Patient being discharged to rehab facility. Patient seen and examined at bedside. Vital signs reviewed and stable. General: nontoxic, no distress, appears at stated age, weak appearing Derm: warm, dry Head: atraumatic, normocephalic, symmetric Eyes: EOMI, no lid lag, anicteric sclera Mouth: no lip lesion, mucus membranes moist Cardiovascular: S1S2 reg, no murmur Lungs: CTA bilateral, no rhonchi, no rales , no accessory muscle use Abdominal: soft, nontender to palpation, no guarding, no appreciable organomegaly Ext: no gross muscle atrophy, no edema, no contractures Neuro: CN II-XI grossly intact, no focal neuro deficits Psych: Alert, oriented, appropriate affect A total of 33 minutes of time were spent preparing this complex discharge summary. Patient was discharged on 05/08/23 at 1202. Patient Condition at Discharge: Stable Plan - Discharge Summary Discharge Rx Participant: No New Discharge Prescriptions: New Pantoprazole [Protonix] 40 mg PO BID #10 tab Continue Levothyroxine Sodium [Synthroid] 50 mcg PO DAILY Rosuvastatin [Crestor] 20 mg PO HS Potassium Chloride ER [K-Dur 20] 20 meq PO BID Torsemide [Demadex] 20 mg PO SUTUTHSA Metoprolol Succinate (ER) [Toprol XL] 100 mg PO BID Rivaroxaban [Xarelto] 15 mg PO W/SUPPER Torsemide [Demadex] 40 mg PO MOWEFR SILVER sulfADIAZINE Cream [Silvadene 1% Cream] 1 applic TOPICAL BID PRN PRN Reason: LEGS allopurinoL [Zyloprim] 100 mg PO DAILY Discontinued Famotidine [Pepcid] 20 mg PO DAILY Discharge Medication List Levothyroxine Sodium [Synthroid] 50 mcg PO DAILY 11/07/14 [History] Rosuvastatin [Crestor] 20 mg PO HS 10/09/16 [History] Potassium Chloride ER [K-Dur 20] 20 meq PO BID 03/06/19 [History] Rivaroxaban [Xarelto] 15 mg PO W/SUPPER 07/23/21 [History] Metoprolol Succinate (ER) [Toprol XL] 100 mg PO BID 05/04/23 [History] SILVER sulfADIAZINE Cream [Silvadene 1% Cream] 1 applic TOPICAL BID PRN 05/04/23 [History] Torsemide [Demadex] 20 mg PO SUTUTHSA 05/04/23 [History] Torsemide [Demadex] 40 mg PO MOWEFR 05/04/23 [History] allopurinoL [Zyloprim] 100 mg PO DAILY 05/04/23 [History] Pantoprazole [Protonix] 40 mg PO BID #10 tab 05/08/23 [Rx] Follow up Appointment(s)/Referral(s): Claudia Whatley MD [STAFF PHYSICIAN] - 1 Week Nonstaff,Physician [REFERRING] - 1-2 days Patient Instructions/Handouts: Peptic Ulcer (DC), Gastrointestinal Bleeding (DC) Activity/Diet/Wound Care/Special Instructions: Please see your PCP and GI. Discharge Disposition: TRANSFER TO SNF/F
[2023-05-08 13:34] VITALS: PULSE 84
[2023-05-08] MEDS: RIVAROXABAN 15 MG TAB PO SCH (15:25)
== END 2023-05-08 15:25 | DRG 378 ==
LOC: EEVIPCON 10:46 → EC 10:46 → 1SOBS 12:55 → 3SCARD 14:10
PROVIDERS: ADMIT Student in an Organized Health Care Education/Training Program; ATTEND Student in an Organized Health Care Education/Training Program
PROC: 0DB78ZX Excision of Stomach, Pylorus, Via Natural or Artificial Opening Endoscopic, Diagnostic (ICD-10-PCS; principal; 2023-05-04)
PROC: 30233N1 Transfusion of Nonautologous Red Blood Cells into Peripheral Vein, Percutaneous Approach (ICD-10-PCS; 2023-05-04)
DX: K25.4 Chronic or unspecified gastric ulcer with hemorrhage (principal); D62 Acute posthemorrhagic anemia; I13.0 Hypertensive heart and chronic kidney disease with heart failure and stage 1 through stage 4 chronic kidney disease, or unspecified chronic kidney disease; E87.20 Acidosis, unspecified; I50.32 Chronic diastolic (congestive) heart failure; I48.92 Unspecified atrial flutter; N17.9 Acute kidney failure, unspecified; T68.XXXA Hypothermia, initial encounter; K57.91 Diverticulosis of intestine, part unspecified, without perforation or abscess with bleeding; I95.9 Hypotension, unspecified; N18.30 Chronic kidney disease, stage 3 unspecified; J44.9 Chronic obstructive pulmonary disease, unspecified; I48.91 Unspecified atrial fibrillation; Z66 Do not resuscitate; K44.9 Diaphragmatic hernia without obstruction or gangrene; E03.9 Hypothyroidism, unspecified; E78.5 Hyperlipidemia, unspecified; I25.10 Atherosclerotic heart disease of native coronary artery without angina pectoris; I25.2 Old myocardial infarction; I89.0 Lymphedema, not elsewhere classified; M19.90 Unspecified osteoarthritis, unspecified site; Z79.01 Long term (current) use of anticoagulants; Z79.890 Hormone replacement therapy; Z79.899 Other long term (current) drug therapy; Z87.891 Personal history of nicotine dependence; Z95.5 Presence of coronary angioplasty implant and graft; Z96.642 Presence of left artificial hip joint; Z95.0 Presence of cardiac pacemaker; Z87.442 Personal history of urinary calculi; Z85.41 Personal history of malignant neoplasm of cervix uteri; Z86.19 Personal history of other infectious and parasitic diseases; Z88.5 Allergy status to narcotic agent; Z88.8 Allergy status to other drugs, medicaments and biological substances
CPT/HCPCS: 36415; 43239; 80048; 80053; 81001; 82272; 83605; 83735; 84443; 84484; 85025; 85027; 85610; 85730; 86850; 86900; 86901; 86920; 87040; 87077; 87086; 87186; 87636; 88305; 93005; 94760; 96361; 96374; 96375; 96376; 99285

== ENCOUNTER 2023-05-10 13:31 | Inpatient (IN) | payer MEDICARE, MEDICAID ==
[2023-05-10] MEDS ORDERED: SODIUM CHLORIDE 0.9% 1,000 ML IV STA (14:19)
--- NOTE | 2023-05-10 14:33 | ED ---
General Adult HPI - General Chief complaint: Weakness Stated complaint: Weakness Time Seen by Provider: 05/10/23 13:42 Source: patient, EMS, RN notes reviewed Mode of arrival: EMS Limitations: no limitations - History of Present Illness Initial comments: Patient is a pleasant 87 old female presenting to the emergency department with concern for drowsiness. Onset of symptoms was today. Patient believes she has been eating well. Patient admits to feeling tired. No confusion. Patient was in the hospital a week or so ago for GI bleed and went to rehab. Patient is unable to ambulate today. - Related Data Home Medications Medication Instructions Recorded Confirmed Levothyroxine Sodium [Synthroid] 50 mcg PO DAILY@0600 11/07/14 05/10/23 Potassium Chloride ER [K-Dur 20] 20 meq PO BID 03/06/19 05/10/23 Rivaroxaban [Xarelto] 15 mg PO DAILY@1800 07/23/21 05/10/23 Metoprolol Succinate (ER) [Toprol 100 mg PO BID 05/04/23 05/10/23 XL] SILVER sulfADIAZINE Cream 1 applic TOPICAL BID PRN 05/04/23 05/10/23 [Silvadene 1% Cream] Torsemide [Demadex] 20 mg PO SUTUTHSA 05/04/23 05/10/23 Torsemide [Demadex] 40 mg PO MOWEFR 05/04/23 05/10/23 allopurinoL [Zyloprim] 100 mg PO DAILY 05/04/23 05/10/23 Acetaminophen [Tylenol] 650 mg PO BID PRN 05/10/23 05/10/23 Atorvastatin [Lipitor] 40 mg PO HS 05/10/23 05/10/23 traMADol HCL 50 mg PO Q6H PRN 05/10/23 05/10/23 Previous Rx's Medication Instructions Recorded Pantoprazole [Protonix] 40 mg PO BID #10 tab 05/08/23 Allergies Allergy/AdvReac Type Severity Reaction Status Date / Time hydromorphone [From Dilaudid] AdvReac Nausea & Verified 05/10/23 15:06 Vomiting lorazepam [From Ativan] AdvReac Hallucinati Verified 05/10/23 15:06 ons Review of Systems ROS Statement: Those systems with pertinent positive or pertinent negative responses have been documented in the HPI. ROS Other: All systems not noted in ROS Statement are negative. Constitutional: Denies: fever Eyes: Denies: eye pain ENT: Denies: ear pain Respiratory: Denies: cough, dyspnea Cardiovascular: Denies: chest pain Endocrine: Reports: as per HPI, fatigue Gastrointestinal: Denies: abdominal pain Genitourinary: Denies: dysuria Neurological: Reports: as per HPI, weakness. Denies: headache, confusion Past Medical History Past Medical History: Atrial Fibrillation, Atrial Flutter, Coronary Artery Disease (CAD), Cancer, Heart Failure, COPD, Hyperlipidemia, Hypertension, Liver Disease, Thyroid Disorder, Vascular Disorder Additional Past Medical History / Comment(s): hx Kidney Stones, Chronic N/T BILAT LEGS, WITH BLE EDEMA, states has had lymphedema with weeping valeria lower legs, degenerative arthritis, hx hepatitis C, hx cervical cancer, PVD Last Myocardial Infarction Date:: 2009 History of Any Multi-Drug Resistant Organisms: VRE Date of last positivie culture/infection: 01/14/21 MDRO Source:: VRE URINE Past Surgical History: Appendectomy, Cholecystectomy, Heart Catheterization With Stent, Hysterectomy, Joint Replacement, Pacemaker Additional Past Surgical History / Comment(s): valeria lower ext vascular repairs,2-6-17 abd. aortogram, ERCP, 4 cardiac stents, left hip replacement Past Anesthesia/Blood Transfusion Reactions: Family History of Problems w/ Anesthesia Additional Past Anesthesia/Blood Transfusion Reaction / Comment(s): sister-long time to come out Date of Last Stent Placement:: 2010? Type of Cardiac Device: Permanent Pacemaker Device Placement Date:: 2014 Past Psychological History: No Psychological Hx Reported Smoking Status: Former smoker - Past Family History Son(s) Family Medical History: Cancer Additional Family Medical History / Comment(s): Patient has 3 sons and one has been diagnosed with bladder cancer. Brother(s) Family Medical History: Cancer Additional Family Medical History / Comment(s): Patient has 2 brothers and one was diagnosed with esophageal cancer with metastatic disease. Daughter(s) Family Medical History: Cancer (patient has 3 daughters one of them was diagnosed with leukemia.) Additional Family Medical History / Comment(s): Patient has 3 daughters and one diagnosed with leukemia. General Exam Limitations: no limitations General appearance: alert, in no apparent distress Head exam: Present: atraumatic Eye exam: Present: normal appearance, PERRL, EOMI ENT exam: Present: mucous membranes dry Neck exam: Present: normal inspection Respiratory exam: Present: normal lung sounds bilaterally Cardiovascular Exam: Present: regular rate, normal rhythm GI/Abdominal exam: Present: soft. Absent: tenderness Extremities exam: Present: normal inspection Neurological exam: Present: alert, oriented X3 Expanded Neurological exam: Present: protecting the airway Motor strength exam: RUE: 5, LUE: 5, RLE: 2/1, LLE: 3 Eye Response: (4) open spontaneously Motor Response: (6) obeys commands Verbal Response: (5) oriented Psychiatric exam: Present: normal affect, normal mood Skin exam: Present: normal color Course Vital Signs 05/10/23 05/10/23 05/10/23 13:34 15:31 17:29 Temperature 96.8 F L Pulse Rate 59 L 60 68 Respiratory 18 16 16 Rate Blood Pressure 92/59 106/45 132/69 O2 Sat by Pulse 100 96 97 Oximetry EKG Findings - EKG Results: EKG: interpreted by ERMD (Paced rhythm with a rate of 60. For screening AV block with VA of 243.), normal axis, normal QRS, normal ST/T Medical Decision Making - Medical Decision Making Was pt. sent in by a medical professional or institution (, PA, SUPERVISOR [employer]ING, urgent care, hospital, or detention...) When possible be specific @ -Patient is sent in by detention Did you speak to anyone other than the patient for history (EMS, parent, family, police, friend...)? What history was obtained from this source @ -Family helps provide history as patient is a poor historian Did you review nursing and triage notes (agree or disagree)? Why? @ -I reviewed and agree with nursing and triage notes Were old charts reviewed (outside hosp., previous admission, EMS record, old EKG, old radiological studies, urgent care reports/EKG's, detention records)? Report findings @ -Previous labs reviewed. Differential Diagnosis (chest pain, altered mental status, abdominal pain women, abdominal pain men, vaginal bleeding, weakness, fever, dyspnea, syncope, headache, dizziness, GI bleed, back pain, seizure, CVA, palpatations, mental health, musculoskeletal)? @ -Differential Weakness: Hypoglycemia, shock, sepsis, hyponatremia, anemia, infection, RI, ETOH, adverse medicine reaction, overdose, stroke, this is not meant to be an all-inclusive list. EKG interpreted by me (3pts min.). @ -As above X-rays interpreted by me (1pt min.). @ -Chest x-ray shows right-sided effusion. CT interpreted by me (1pt min.). @ -CT brain without obvious acute abnormality. U/S interpreted by me (1pt. min.). @ -None done What testing was considered but not performed or refused? (CT, X-rays, U/S, labs)? Why? @ -None What meds were considered but not given or refused? Why? @ -None Did you discuss the management of the patient with other professionals (p chrisfessionals i.e. , PA, SUPERVISOR [employer], lab, RT, psych nurse, social media assistant, chain person, teacher, executive vice president and chief financial officer, shoe parts caser)? Give summary @ -Case was discussed with Dr. Garcia who will admit covering Dr. Blackwood Was smoking cessation discussed for >3mins.? @ -No Was critical care preformed (if so, how long)? @ -No Were there social determinants of health that impacted care today? How? (Homelessness, low income, unemployed, alcoholism, drug addiction, transportation, low edu. Level, literacy, decrease access to med. care, penitentiary, rehab)? @ -No Was there de-escalation of care discussed even if they declined (Discuss DNR or withdrawal of care, Hospice)? DNR status @ -No What co-morbidities impacted this encounter? (DM, HTN, Smoking, COPD, CAD, Cancer, CVA, ARF, Chemo, Hep., AIDS, mental health diagnosis, sleep apnea, morbid obesity)? @ -None Was patient admitted / discharged? Hospital course, mention meds given and route, prescriptions, significant lab abnormalities, going to OR and other pertinent info. @ -Patient reevaluated. Patient and family updated. Patient will be admitted and cardiac enzymes will be rechecked. Undiagnosed new problem with uncertain prognosis? @ -No Drug Therapy requiring intensive monitoring for toxicity (Heparin, Nitro, Insulin, Cardizem)? @ -No Were any procedures done? @ -No Diagnosis/symptom? @ -Weakness Acute, or Chronic, or Acute on Chronic? @ -Acute Uncomplicated (without systemic symptoms) or Complicated (systemic symptoms)? @ -default Side effects of treatment? @ -No Exacerbation, Progression, or Severe Exacerbation? @ -No Poses a threat to life or bodily function? How? (Chest pain, USA, RI, pneumonia, PE, COPD, DKA, ARF, appy, cholecystitis, CVA, Diverticulitis, Homicidal, Suicida l, threat to staff... and all critical care pts) @ -No - Lab Data Result diagrams: 05/10/23 14:44 05/10/23 14:44 Lab Results 05/10/23 05/10/23 05/10/23 Range/Units 14:44 14:44 14:44 WBC 4.3 (3.8-10.6) k/uL RBC 2.57 L (3.80-5.40) m/uL Hgb 7.6 L (11.4-16.0) gm/dL Hct 24.9 L (34.0-46.0) % MCV 97.1 (80.0-100.0) fL MCH 29.8 (25.0-35.0) pg MCHC 30.7 L (31.0-37.0) g/dL RDW 17.5 H (11.5-15.5) % Plt Count 135 L (150-450) k/uL MPV 9.3 Neutrophils % (Manual) 68 % Lymphocytes % (Manual) 22 % Monocytes % (Manual) 9 % Eosinophils % (Manual) 1 % Neutrophils # (Manual) 2.92 (1.3-7.7) k/uL Lymphocytes # (Manual) 0.95 L (1.0-4.8) k/uL Monocytes # (Manual) 0.39 (0-1.0) k/uL Eosinophils # (Manual) 0.04 (0-0.7) k/uL Nucleated RBCs 0 (0-0) /100 WBC Manual Slide Review Performed Polychromasia Present Hypochromasia Marked Poikilocytosis Moderate Anisocytosis Slight Macrocytosis Slight PT 11.9 (10.0-12.5) sec INR 1.1 (<1.2) APTT 25.2 (22.0-30.0) sec Sodium 141 (137-145) mmol/L Potassium 4.1 (3.5-5.1) mmol/L Chloride 107 (98-107) mmol/L Carbon Dioxide 25 (22-30) mmol/L Anion Gap 9 mmol/L BUN 42 H (7-17) mg/dL Creatinine 1.71 H (0.52-1.04) mg/dL Est GFR (CKD-EPI)AfAm 31 (>60 ml/min/1.73 sqM) Est GFR (CKD-EPI)NonAf 27 (>60 ml/min/1.73 sqM) Glucose 119 H (74-99) mg/dL Plasma Lactic Acid Tyler (0.7-2.0) mmol/L Calcium 8.9 (8.4-10.2) mg/dL Magnesium 2.1 (1.6-2.3) mg/dL Total Bilirubin 0.4 (0.2-1.3) mg/dL AST 31 (14-36) U/L ALT 19 (4-34) U/L Alkaline Phosphatase 117 (38-126) U/L Troponin I (0.000-0.034) ng/mL Total Protein 6.2 L (6.3-8.2) g/dL Albumin 2.9 L (3.5-5.0) g/dL TSH 3.980 (0.465-4.680) mIU/L Free T4 1.63 (0.78-2.19) ng/dL Free T3 pg/mL 3.3 (2.8-5.3) pg/ml 05/10/23 05/10/23 Range/Units 14:44 14:44 WBC (3.8-10.6) k/uL RBC (3.80-5.40) m/uL Hgb (11.4-16.0) gm/dL Hct (34.0-46.0) % MCV (80.0-100.0) fL MCH (25.0-35.0) pg MCHC (31.0-37.0) g/dL RDW (11.5-15.5) % Plt Count (150-450) k/uL MPV Neutrophils % (Manual) % Lymphocytes % (Manual) % Monocytes % (Manual) % Eosinophils % (Manual) % Neutrophils # (Manual) (1.3-7.7) k/uL Lymphocytes # (Manual) (1.0-4.8) k/uL Monocytes # (Manual) (0-1.0) k/uL Eosinophils # (Manual) (0-0.7) k/uL Nucleated RBCs (0-0) /100 WBC Manual Slide Review Polychromasia Hypochromasia Poikilocytosis Anisocytosis Macrocytosis PT (10.0-12.5) sec INR (<1.2) APTT (22.0-30.0) sec Sodium (137-145) mmol/L Potassium (3.5-5.1) mmol/L Chloride (98-107) mmol/L Carbon Dioxide (22-30) mmol/L Anion Gap mmol/L BUN (7-17) mg/dL Creatinine (0.52-1.04) mg/dL Est GFR (CKD-EPI)AfAm (>60 ml/min/1.73 sqM) Est GFR (CKD-EPI)NonAf (>60 ml/min/1.73 sqM) Glucose (74-99) mg/dL Plasma Lactic Acid Tyler 1.4 (0.7-2.0) mmol/L Calcium (8.4-10.2) mg/dL Magnesium (1.6-2.3) mg/dL Total Bilirubin (0.2-1.3) mg/dL AST (14-36) U/L ALT (4-34) U/L Alkaline Phosphatase (38-126) U/L Troponin I 0.067 H* (0.000-0.034) ng/mL Total Protein (6.3-8.2) g/dL Albumin (3.5-5.0) g/dL TSH (0.465-4.680) mIU/L Free T4 (0.78-2.19) ng/dL Free T3 pg/mL (2.8-5.3) pg/ml Disposition Clinical Impression: Weakness Disposition: ADMITTED IP TO THIS [facility] Is patient prescribed a controlled substance at d/c from ED?: No Referrals: Parminder Powers MD [Primary Care Provider] - 1-2 days Time of Disposition: 17:40
--- NOTE | 2023-05-10 15:20 | CT ---
EXAMINATION TYPE: CT brain wo con DATE OF EXAM: 05/10/2023 COMPARISON: 01/13/2021 INDICATION: ams DLP: 1095.4 mGycm, Automated exposure control for dose reduction was used. CONTRAST: None CT of the brain is performed utilizing 3 mm thick sections through the posterior fossa and 3 mm thick sections through the remaining calvarium. Study is performed within 24 hours of arrival to the hosp ital. No abnormal hyperdensity is present to suggest an acute intracranial hemorrhage. No mass lesion is evident. No acute infarcts are evident. There is some mild periventricular white matter hypodensity, likely on the basis of chronic white matter ischemic changes. Ventricles and sulci are mildly prominent for the patient age. Paranasal sinuses and mastoid air cells within the snxfe-hi-wail are clear. IMPRESSION: 1. Mild atrophy with minimal chronic appearing periventricular white matter ischemic type changes.
[2023-05-10 15:27] LABS: Anisocytosis Slight; HCT 24.9 % (34.0-46.0); HGB 7.6 gm/dL (11.4-16.0); Hypochromasia Marked; MCH 29.8 pg (25.0-35.0); MCHC 30.7 g/dL (31.0-37.0); MCV 97.1 fL (80.0-100.0); Macrocytosis Slight; Mean Platelet Volume 9.3; Platelet Count 135 k/uL (150-450); Poikilocytosis Moderate; RBC 2.57 m/uL (3.80-5.40); RDW 17.5 % (11.5-15.5); WBC 4.3 k/uL (3.8-10.6)
[2023-05-10 15:43] LABS: INR 1.1 (<1.2); Partial Thromboplastin Time 25.2 sec (22.0-30.0); Prothrombin Time 11.9 sec (10.0-12.5)
[2023-05-10 15:44] LABS: ALT 19 U/L (4-34); AST 31 U/L (14-36); African American GFR (CKD) 31 (>60 ml/min/1.73 sqM); Albumin 2.9 g/dL (3.5-5.0); Alkaline Phosphatase 117 U/L (38-126); Anion Gap 9 mmol/L; Blood Urea Nitrogen 42 mg/dL (7-17); Calcium 8.9 mg/dL (8.4-10.2); Carbon Dioxide 25 mmol/L (22-30); Chloride 107 mmol/L (98-107); Glucose 119 mg/dL (74-99); Magnesium 2.1 mg/dL (1.6-2.3); Non-African American GFR(CKD) 27 (>60 ml/min/1.73 sqM); Potassium 4.1 mmol/L (3.5-5.1); Sodium 141 mmol/L (137-145); Total Bilirubin 0.4 mg/dL (0.2-1.3); Total Protein 6.2 g/dL (6.3-8.2)
[2023-05-10 16:01] LABS: T4, Free (Free Thyroxine) 1.63 ng/dL (0.78-2.19)
[2023-05-10 16:33] LABS: Polychromasia Present
[2023-05-10 16:34] LABS: Eosinophils # (M) 0.04 k/uL (0-0.7); Lymphocytes # (M) 0.95 k/uL (1.0-4.8); Monocytes # (M) 0.39 k/uL (0-1.0); Neutrophils # (M) 2.92 k/uL (1.3-7.7); Neutrophils % (M) 68 %; Nucleated Red Blood Cells 0 /100 WBC (0-0); Total Cells Counted 100
--- NOTE | 2023-05-10 16:51 | XR ---
EXAMINATION TYPE: XR chest 2V DATE OF EXAM: 05/10/2023 COMPARISON: 07/23/2021 INDICATION: Weakness lethargic TECHNIQUE: Frontal and lateral views of the chest are obtained. FINDINGS: The heart size is normal. The pulmonary vasculature is normal. Mild infiltrates at the right base. Moderate-sized posterior pleural effusions also present. [place] r overlies left chest. IMPRESSION: 1. Moderate right pleural effusion with mild adjacent atelectasis
[2023-05-10] MEDS ORDERED: NALOXONE 0.4 MG/ML 1 ML VIAL IV PRN (17:40)
[2023-05-10] MEDS ORDERED: TORSEMIDE 20 MG TAB PO SCH (18:00)
[2023-05-10] MEDS ORDERED: PANTOPRAZOLE 40 MG TABLET PO SCH (18:15)
[2023-05-10 18:21] LABS: Bacteria,Urine Moderate /hpf; RBC,Urine 1 /hpf (0-5); Squamous Epithelial Cell,Urine 1 /hpf (0-4); WBC,Urine 2 /hpf (0-5)
[2023-05-10 18:22] LABS: Appearance,Urine Clear (Clear); Bilirubin,Urine Negative (Negative); Blood,Urine Negative (Negative); Color,Urine Yellow; Glucose,Urine (UA) Negative (Negative); Ketones,Urine Negative (Negative); Leukocyte Esterase,Urine Small (Negative); Nitrite,Urine Negative (Negative); Protein,Urine Trace (Negative); Specific Gravity,Urine 1.015 (1.001-1.035); Urobilinogen,Urine <2.0 mg/dL (<2.0)
[2023-05-10] MEDS: SODIUM CHLORIDE 0.9% 1,000 ML IV SCH (18:30)
[2023-05-10] MEDS ORDERED: HYDROcodone/APAP 5-325MG 1 EACH TAB PO STA (18:42)
[2023-05-10] MEDS ORDERED: DOCUSATE 100 MG CAP PO PRN (18:45)
[2023-05-10] MEDS ORDERED: ONDANSETRON 4 MG/2 ML VIAL IVP PRN (18:45)
[2023-05-10] MEDS ORDERED: MAG HYDROX/AL HYDROX/SIMETH 30 ML CUP PO PRN (18:45)
[2023-05-10] MEDS ORDERED: ACETAMINOPHEN TAB 325 MG TAB PO PRN (18:45)
--- NOTE | 2023-05-10 18:48 | P.HPIM ---
History of Present Illness H&P Date: 05/10/23 87 year old F with PMH atrial fibrillation on Xarelto, hypothyroidism, dyslipidemia, diastolic CHF, hypertension, CAD status post stent, arrhythmia status post pacemaker presenting with drowsiness. Recently admitted from 05/04-05/08 for concerns of GI bleed. EGD showed antral ulcer. Discharged to SNF. Family reports patient is too weak and lethargic to participate in rehab. Daughter reports patient appears for short of breath while on the phone. Daughter reports confusion but she was at times confused prior to her initial hospitalization. Patient reports dysuria. No bowel movement since her discharge. Denies chest pain. In the ED she underwent extensive evaluation. CBC Hg 7.6 Hct 24.9 Plt 135. CMP BUN 42 Cr 1.71 glu 119. TSH/FT4 within normal limits. Troponin 0.067. EKG atrial pacemaker. CXR moderate right pleural effusion. CT brain no acute pathology. Pertinent positives and negatives as discussed in HPI, a complete review of systems was performed and all other systems are negative. General: non toxic, no distress, appears at stated age Derm: warm, dry, pale Head: atraumatic, normocephalic, symmetric Eyes: EOMI, no lid lag, anicteric sclera Cardiovascular: S1S2 reg, no murmur Lungs: Decreased BS bilateral, no rhonchi, no rales , no accessory muscle use Abdominal: soft, suprapubic tenderness, no guarding, no appreciable organomegaly Ext: no gross muscle atrophy, no edema, no contractures Neuro: no focal neuro deficits Psych: Alert, oriented, appropriate affect Based on my assessment of this patient, this patient meets a high complexity level of care. Patient has an acute diagnosis of troponin elevation that poses a threat to life or bodily function. Acute hypoxic respiratory failure: Likely due to right pleural effusion. Supplemental O2 to maintain O2 saturation > 92%. Right pleural effusion: Most recent Echo shows preserved EF with diastolic dysfunction. Does not appears volume overloaded. Continue Torsemide. Consult Pulmonology. Troponin elevation: Likely poor clearance from CKD. Trend Trop/EKG. Echocardiogram ordered. Cardiology consult. Normocytic anemia with recent GI bleed: Hg stable but borderline low. Hold Xarelto for now. Trend CBC. Stool for occult blood. May need C-scope. Generalized weakness: Likely related to all of the above. UA with reflex to UCx due to dysuria. PT and OT consult. Fall precautions. Chronic conditions: Atrial fibrillation, hypothyroidism, dyslipidemia, hypertension, CAD, diastolic CHF, chronic kidney disease CODE STATUS: NO CODE DVT Prophylaxis: SCDs GI Prophylaxis: Protonix IV Designated medical POA if patient is not able to make medical decisions for themselves: Daughter who is the guardian. I have reviewed the following configuration management consultant notes: I have reviewed the results of the following tests: As above. I have ordered the following tests: As above. I have discussed the care of this patient with the following independent historian: Multiple family members including the daughter and guardian. I have independently interpreted the following test below: EKG as above. I have discussed the management of this patient with the following physician: Past Medical History Past Medical History: Atrial Fibrillation, Atrial Flutter, Coronary Artery Disease (CAD), Cancer, Heart Failure, COPD, Hyperlipidemia, Hypertension, Liver Disease, Thyroid Disorder, Vascular Disorder Additional Past Medical History / Comment(s): hx Kidney Stones, Chronic N/T BILAT LEGS, WITH BLE EDEMA, states has had lymphedema with weeping valeria lower legs, degenerative arthritis, hx hepatitis C, hx cervical cancer, PVD Last Myocardial Infarction Date:: 2009 History of Any Multi-Drug Resistant Organisms: VRE Date of last positivie culture/infection: 01/14/21 MDRO Source:: VRE URINE Past Surgical History: Appendectomy, Cholecystectomy, Heart Catheterization With Stent, Hysterectomy, Joint Replacement, Pacemaker Additional Past Surgical History / Comment(s): valeria lower ext vascular repairs,2-6-17 abd. aortogram, ERCP, 4 cardiac stents, left hip replacement Past Anesthesia/Blood Transfusion Reactions: Family History of Problems w/ Anesthesia Additional Past Anesthesia/Blood Transfusion Reaction / Comment(s): sister-long time to come out Date of Last Stent Placement:: 2010? Type of Cardiac Device: Permanent Pacemaker Device Placement Date:: 2014 Past Psychological History: No Psychological Hx Reported Smoking Status: Former smoker - Past Family History Son(s) Family Medical History: Cancer Additional Family Medical History / Comment(s): Patient has 3 sons and one has been diagnosed with bladder cancer. Brother(s) Family Medical History: Cancer Additional Family Medical History / Comment(s): Patient has 2 brothers and one was diagnosed with esophageal cancer with metastatic disease. Daughter(s) Family Medical History: Cancer (patient has 3 daughters one of them was diagnosed with leukemia.) Additional Family Medical History / Comment(s): Patient has 3 daughters and one diagnosed with leukemia. Medications and Allergies Home Medications Medication Instructions Recorded Confirmed Type Levothyroxine Sodium [Synthroid] 50 mcg PO DAILY@0600 11/07/14 05/10/23 History Potassium Chloride ER [K-Dur 20] 20 meq PO BID 03/06/19 05/10/23 History Rivaroxaban [Xarelto] 15 mg PO DAILY@1800 07/23/21 05/10/23 History Metoprolol Succinate (ER) [Toprol 100 mg PO BID 05/04/23 05/10/23 History XL] SILVER sulfADIAZINE Cream 1 applic TOPICAL BID PRN 05/04/23 05/10/23 History [Silvadene 1% Cream] Torsemide [Demadex] 20 mg PO SUTUTHSA 05/04/23 05/10/23 History Torsemide [Demadex] 40 mg PO MOWEFR 05/04/23 05/10/23 History allopurinoL [Zyloprim] 100 mg PO DAILY 05/04/23 05/10/23 History Pantoprazole [Protonix] 40 mg PO BID #10 tab 05/08/23 05/10/23 Rx Acetaminophen [Tylenol] 650 mg PO BID PRN 05/10/23 05/10/23 History Atorvastatin [Lipitor] 40 mg PO HS 05/10/23 05/10/23 History traMADol HCL 50 mg PO Q6H PRN 05/10/23 05/10/23 History Allergies Allergy/AdvReac Type Severity Reaction Status Date / Time hydromorphone [From Dilaudid] AdvReac Nausea & Verified 05/10/23 15:06 Vomiting lorazepam [From Ativan] AdvReac Hallucinati Verified 05/10/23 15:06 ons Physical Exam Vitals: Vital Signs Temp Pulse Resp BP Pulse Ox 05/10/23 17:29 68 16 132/69 97 05/10/23 15:31 60 16 106/45 96 05/10/23 13:34 96.8 F L 59 L 18 92/59 100 Intake and Output 05/10/23 05/10/23 05/10/23 06:59 14:59 22:59 Other: Weight 83.461 kg Results CBC & Chem 7: 05/10/23 14:44 05/10/23 14:44 Labs: Abnormal Lab Results - Last 24 Hours (Table) 05/10/23 05/10/23 05/10/23 Range/Units 14:44 14:44 14:44 RBC 2.57 L (3.80-5.40) m/uL Hgb 7.6 L (11.4-16.0) gm/dL Hct 24.9 L (34.0-46.0) % MCHC 30.7 L (31.0-37.0) g/dL RDW 17.5 H (11.5-15.5) % Plt Count 135 L (150-450) k/uL Lymphocytes # (Manual) 0.95 L (1.0-4.8) k/uL BUN 42 H (7-17) mg/dL Creatinine 1.71 H (0.52-1.04) mg/dL Glucose 119 H (74-99) mg/dL Troponin I 0.067 H* (0.000-0.034) ng/mL Total Protein 6.2 L (6.3-8.2) g/dL Albumin 2.9 L (3.5-5.0) g/dL Urine Protein (Negative) Ur Leukocyte Esterase (Negative) Urine WBC Clumps (None) /hpf Urine Bacteria (None) /hpf 05/10/23 Range/Units 17:58 RBC (3.80-5.40) m/uL Hgb (11.4-16.0) gm/dL Hct (34.0-46.0) % MCHC (31.0-37.0) g/dL RDW (11.5-15.5) % Plt Count (150-450) k/uL Lymphocytes # (Manual) (1.0-4.8) k/uL BUN (7-17) mg/dL Creatinine (0.52-1.04) mg/dL Glucose (74-99) mg/dL Troponin I (0.000-0.034) ng/mL Total Protein (6.3-8.2) g/dL Albumin (3.5-5.0) g/dL Urine Protein Trace H (Negative) Ur Leukocyte Esterase Small H (Negative) Urine WBC Clumps Rare H (None) /hpf Urine Bacteria Moderate H (None) /hpf
[2023-05-10] MEDS: ATORVASTATIN 40 MG TAB PO SCH (20:23)
[2023-05-10] MEDS: METOPROLOL SUCCINATE (ER) 100 MG TAB.ER.24H PO SCH (20:30)
[2023-05-10 23:23] LABS: Bacteria,Urine Rare /hpf; RBC,Urine <1 /hpf (0-5); WBC,Urine 1 /hpf (0-5)
[2023-05-10 23:25] LABS: Appearance,Urine Clear (Clear); Bilirubin,Urine Negative (Negative); Blood,Urine Negative (Negative); Color,Urine Light Yellow; Glucose,Urine (UA) Negative (Negative); Ketones,Urine Negative (Negative); Leukocyte Esterase,Urine Small (Negative); Nitrite,Urine Negative (Negative); Protein,Urine Negative (Negative); Specific Gravity,Urine 1.015 (1.001-1.035); Urobilinogen,Urine <2.0 mg/dL (<2.0)
[2023-05-11] MEDS: HYDROcodone/APAP 5-325MG 1 EACH TAB PO PRN ×2 (01:31→07:52)
[2023-05-11] MEDS ORDERED: MELATONIN 5 MG TABLET PO ONE (01:57)
--- NOTE | 2023-05-11 04:30 | P.CNPUL ---
History of Present Illness Consult date: 05/11/23 Requesting physician: Alfred Salgado Reason for consult: pleural effusion Chief complaint: Generalized weakness and fatigue History of present illness: I am seeing this patient in new consultation today 05/11/2023 in the ER, room 20, after she was sent in from [facility] with generalized weakness/fatigue and unable to participate in rehab. Patient is a 87-year-old female with past medical history significant for atrial fibrillation normally anticoagulated on Xarelto, coronary artery disease with previous PCI/stenting, permanent pacemaker, heart failure, hyperlipidemia, hypertension, hypothyroidism, among other things. She was just recently admitted earlier this month for acute GI bleed. She did undergo EGD at that time which showed a 5 mm antral ulcer with no active bleeding and a small hiatal hernia. Patient also reports worsening shortness breath over the last 2 weeks. Especially worse on exertion. She is anemic, hemoglobin is stable at 7.6 gm/dl. No further reports of bleeding or melanotic stools. No nausea or vomiting, abdominal pain, constipation, diarrhea. Denies any chest pain, palpitations, or worsening lower extremity edema. She does have chronic lower extremity swelling, however, not worse than normal. She takes Demadex outpatient. Denies fever. Does have an occasional intermittent nonproductive cough. Denies any history of pulmonary disease such as asthma or COPD. She is currently lying in bed, on 2 L per minute nasal cannula, in no acute distress. It appears that she has pulled out her IV. Chest x-ray on arrival demonstrated a moderate right pleural effusion with adjacent atelectasis and trace left pleural effusion. WBC on arrival shows a WBC count of 4.3, hemoglobin 7.6, hematocrit 24.9, platelets 135. BMP on arrival shows sodium of 141, potassium 4.1, chloride 107, serum bicarb 25, BUN 42, creatinine 1.71, glucose 119. She does have a component of chronic kidney disease. Initial urinalysis was likely contaminated, repeat no evidence of UTI. Patient denies any urinary complaints. Troponins mildly elevated at 0.067, 0.06, and 0.061 re spectively. Not consistent with ACS. ECG shows an atrial paced rhythm at 60 bpm. No evidence of acute ischemia. Afebrile. Vital signs are stable. Review of Systems REVIEW OF SYSTEMS: CONSTITUTIONAL: Denies any recent significant weight loss or weight gain. EYES: Denies change in vision. EARS, NOSE, MOUTH, THROAT: Denies headaches, denies sore throat. CARDIOVASCULAR: Denies chest pain, palpitations or syncopal episodes. RESPIRATORY: See HPI GASTROINTESTINAL: Denies change in appetite, abdominal pain, nausea and vomiting, or diarrhea GENITOURINARY: Denies hematuria, denies infections. MUSKULOSKELETAL: Admits chronic bilateral lower extremity swelling and pain. INTEGUMENTARY: Denies rash, denies eczema. NEUROLOGICAL: Denies recent memory loss, no recent seizure activity. PSYCHIATRIC: Denies anxiety, denies depression. HEMATOLOGIC/LYMPHATIC: Denies anemia, denies enlarged lymph node Past Medical History Past Medical History: Atrial Fibrillation, Atrial Flutter, Coronary Artery Disease (CAD), Cancer, Heart Failure, COPD, Hyperlipidemia, Hypertension, Liver Disease, Thyroid Disorder, Vascular Disorder Additional Past Medical History / Comment(s): hx Kidney Stones, Chronic N/T BILAT LEGS, WITH BLE EDEMA, states has had lymphedema with weeping valeria lower legs, degenerative arthritis, hx hepatitis C, hx cervical cancer, PVD Last Myocardial Infarction Date:: 2009 History of Any Multi-Drug Resistant Organisms: VRE Date of last positivie culture/infection: 01/14/21 MDRO Source:: VRE URINE Past Surgical History: Appendectomy, Cholecystectomy, Heart Catheterization With Stent, Hysterectomy, Joint Replacement, Pacemaker Additional Past Surgical History / Comment(s): valeria lower ext vascular repairs,2-6-17 abd. aortogram, ERCP, 4 cardiac stents, left hip replacement Past Anesthesia/Blood Transfusion Reactions: Family History of Problems w/ Anesthesia Additional Past Anesthesia/Blood Transfusion Reaction / Comment(s): sister-long time to come out Date of Last Stent Placement:: 2010? Type of Cardiac Device: Permanent Pacemaker Device Placement Date:: 2014 Past Psychological History: No Psychological Hx Reported Smoking Status: Former smoker - Past Family History Son(s) Family Medical History: Cancer Additional Family Medical History / Comment(s): Patient has 3 sons and one has been diagnosed with bladder cancer. Brother(s) Family Medical History: Cancer Additional Family Medical History / Comment(s): Patient has 2 brothers and one was diagnosed with esophageal cancer with metastatic disease. Daughter(s) Family Medical History: Cancer (patient has 3 daughters one of them was diagnosed with leukemia.) Additional Family Medical History / Comment(s): Patient has 3 daughters and one diagnosed with leukemia. Medications and Allergies Home Medications Medication Instructions Recorded Confirmed Type Levothyroxine Sodium [Synthroid] 50 mcg PO DAILY@0600 11/07/14 05/10/23 History Potassium Chloride ER [K-Dur 20] 20 meq PO BID 03/06/19 05/10/23 History Rivaroxaban [Xarelto] 15 mg PO DAILY@1800 07/23/21 05/10/23 History Metoprolol Succinate (ER) [Toprol 100 mg PO BID 05/04/23 05/10/23 History XL] SILVER sulfADIAZINE Cream 1 applic TOPICAL BID PRN 05/04/23 05/10/23 History [Silvadene 1% Cream] Torsemide [Demadex] 20 mg PO SUTUTHSA 05/04/23 05/10/23 History Torsemide [Demadex] 40 mg PO MOWEFR 05/04/23 05/10/23 History allopurinoL [Zyloprim] 100 mg PO DAILY 05/04/23 05/10/23 History Pantoprazole [Protonix] 40 mg PO BID #10 tab 05/08/23 05/10/23 Rx Acetaminophen [Tylenol] 650 mg PO BID PRN 05/10/23 05/10/23 History Atorvastatin [Lipitor] 40 mg PO HS 05/10/23 05/10/23 History traMADol HCL 50 mg PO Q6H PRN 05/10/23 05/10/23 History Allergies Allergy/AdvReac Type Severity Reaction Status Date / Time hydromorphone [From Dilaudid] AdvReac Nausea & Verified 05/10/23 15:06 Vomiting lorazepam [From Ativan] AdvReac Hallucinati Verified 05/10/23 15:06 ons Physical Exam Vitals: Vital Signs Temp Pulse Pulse Resp BP BP Pulse Ox 05/11/23 03:24 60 16 100/49 96 05/11/23 02:30 60 16 97/66 96 05/11/23 02:00 61 18 122/61 96 05/11/23 01:33 60 16 134/56 96 05/11/23 00:30 98.1 F 73 18 135/61 96 05/11/23 00:00 60 17 112/62 97 05/10/23 22:00 60 16 108/59 95 05/10/23 20:00 60 16 132/58 96 05/10/23 19:00 68 14 142/62 100 05/10/23 18:00 65 17 109/99 98 05/10/23 17:29 68 16 132/69 97 05/10/23 15:31 60 16 106/45 96 05/10/23 13:34 96.8 F L 59 L 18 92/59 100 Intake and Output 05/10/23 05/10/23 05/11/23 14:59 22:59 06:59 Other: Weight 83.461 kg GENERAL EXAM: Alert, 87-year-old white female, obese, disheveled and fatigue, fairly comfortable in no apparent distress. HEAD: Normocephalic and atraumatic EYES: Normal reaction of pupils, equal size. NOSE: Clear with pink turbinates. THROAT: No erythema or exudates. NECK: No masses, no JVD. CHEST: No chest wall deformity. LUNGS: Equal air entry with diminished bibasilar lung sounds and bibasilar inspiratory crackles. No wheezes, rhonchi. On 2 L/m nasal cannula. No conversational dyspnea or accessory muscle use.. CVS: S1 and S2 normal with no audible murmur, regular rhythm. No extra heart sounds ABDOMEN: No hepatosplenomegaly, active bowel sounds, no guarding or rigidity. SPINE: No scoliosis or deformity SKIN: Generalized pallor CENTRAL NERVOUS SYSTEM: No focal deficits, tone is normal in all 4 extremities. EXTREMITIES: There is no peripheral edema, clubbing, or cyanosis. Peripheral pulses are intact. Results - Laboratory Findings CBC and BMP: 05/10/23 14:44 05/10/23 14:44 PT/INR, D-dimer PT 11.9 sec (10.0-12.5) 05/10/23 14:44 INR 1.1 (<1.2) 05/10/23 14:44 Abnormal lab findings: Abnormal Labs 05/10/23 05/10/23 05/10/23 14:44 14:44 14:44 RBC 2.57 L Hgb 7.6 L Hct 24.9 L MCHC 30.7 L RDW 17.5 H Plt Count 135 L Lymphocytes # (Manual) 0.95 L BUN 42 H Creatinine 1.71 H Glucose 119 H Troponin I 0.067 H* Total Protein 6.2 L Albumin 2.9 L Urine Protein Ur Leukocyte Esterase Urine WBC Clumps Urine Bacteria 05/10/23 05/10/23 05/10/23 17:58 19:12 21:15 RBC Hgb Hct MCHC RDW Plt Count Lymphocytes # (Manual) BUN Creatinine Glucose Troponin I 0.060 H* 0.061 H* Total Protein Albumin Urine Protein Trace H Ur Leukocyte Esterase Small H Urine WBC Clumps Rare H Urine Bacteria Moderate H 05/10/23 22:45 RBC Hgb Hct MCHC RDW Plt Count Lymphocytes # (Manual) BUN Creatinine Glucose Troponin I Total Protein Albumin Urine Protein Ur Leukocyte Esterase Urine WBC Clumps Urine Bacteria Rare H - Diagnostic Findings Chest x-ray: image reviewed Assessment and Plan Assessment: Acute hypoxemic respiratory failure, likely secondary to right-sided pleural effusion Normocytic normochromic anemia, recent GI bleed status post EGD Generalized fatigue, secondary to above Elevated troponins, flat and not reflective of ACS Chronic kidney disease, stage IV History of permanent pacemaker, currently atrial paced History of paroxysmal atrial fibrillation, normally anticoagulated on Xarelto History of coronary artery disease with previous PCI/stenting History peripheral vascular disease History of nonischemic cardiomyopathy Hyperlipidemia Hypertension Hypothyroidism History of cervical cancer History of hepatitis C Obesity, with a BMI of 33.7 kg/m Former smoker Plan: Patient's medications, labs, chest x-ray reviewed Continue supplemental oxygen and wean as tolerated Patient appears to have a moderate sized right-sided pleural effusion, obtain chest ultrasound with markings. Possible thoracentesis. Xarelto is currently on hold. Demadex has been restarted. Echocardiogram pending No further bleeding reported. Hemoglobin appears stable from hospital discharge. We will continue to follow, and further recommendations are forthcoming Time with Patient: Greater than 30
[2023-05-11 05:06] LABS: Anisocytosis Slight; Basophils % (A) 0 %; Eosinophils # (A) 0.1 k/uL (0-0.7); Eosinophils % (A) 2 %; HGB 7.4 gm/dL (11.4-16.0); Hypochromasia Marked; Lymphocytes # (A) 1.2 k/uL (1.0-4.8); Lymphocytes % (A) 21 %; MCH 30.1 pg (25.0-35.0); MCHC 31.1 g/dL (31.0-37.0); MCV 96.9 fL (80.0-100.0); Macrocytosis Slight; Mean Platelet Volume 9.4; Monocytes # (A) 0.3 k/uL (0-1.0); Monocytes % (A) 6 %; Neutrophils # (A) 3.8 k/uL (1.3-7.7); Neutrophils % (A) 68 %; Platelet Count 127 k/uL (150-450); Poikilocytosis Moderate; RBC 2.47 m/uL (3.80-5.40); RDW 17.3 % (11.5-15.5); WBC 5.6 k/uL (3.8-10.6)
[2023-05-11 05:14] LABS: ALT 18 U/L (4-34); AST 27 U/L (14-36); African American GFR (CKD) 33 (>60 ml/min/1.73 sqM); Albumin 2.8 g/dL (3.5-5.0); Alkaline Phosphatase 132 U/L (38-126); Anion Gap 6 mmol/L; Blood Urea Nitrogen 35 mg/dL (7-17); Calcium 8.8 mg/dL (8.4-10.2); Carbon Dioxide 31 mmol/L (22-30); Chloride 103 mmol/L (98-107); Glucose 86 mg/dL (74-99); Non-African American GFR(CKD) 28 (>60 ml/min/1.73 sqM); Potassium 3.6 mmol/L (3.5-5.1); Sodium 140 mmol/L (137-145); Total Bilirubin 0.6 mg/dL (0.2-1.3)
[2023-05-11 05:23] LABS: NT-Pro-B-Type Natriuretic Pept 2810 pg/mL
[2023-05-11] MEDS: LEVOTHYROXINE 50 MCG TAB PO SCH (06:56)
[2023-05-11] MEDS: TORSEMIDE 20 MG TAB PO SCH (07:53)
[2023-05-11] MEDS: METOPROLOL SUCCINATE (ER) 100 MG TAB.ER.24H PO SCH (07:53)
[2023-05-11] MEDS: allopurinoL 100 MG TAB PO SCH (07:53)
--- NOTE | 2023-05-11 08:36 | US ---
EXAMINATION TYPE: US chest DATE OF EXAM: 05/11/2023 COMPARISON: Radiograph 05/10/2023 CLINICAL INDICATION: Female, 87 years old with history of bilateral pleural effusions; TECHNIQUE: Targeted ultrasound of the posterior lower bilateral hemithoraces EXAM MEASUREMENTS: Right Pleural Effusion pocket size: 5.4 cm Right skin surface to fluid distance: 3.4 cm Left Pleural Effusion pocket size: 0 cm Right side marked for possible thoracentesis outside the dept. Left side not marked for possible thoracentesis outside the dept. Exam done with patient laying on her side Pulmonologists are able to review the images in the patient?s EMR. IMPRESSIONS: [id number] right pleural effusion with marking performed.
[2023-05-11] MEDS ORDERED: PANTOPRAZOLE 40 MG/10 ML VIAL IV SCH (09:00)
--- NOTE | 2023-05-11 11:00 | P.CRDCN ---
History of Present Illness History of present illness: HISTORY OF PRESENT ILLNESS: This is a 87-year-old female with a past medical history significant for atrial fibrillation, coronary artery disease with previous stenting of the mid RCA in 2012, peripheral vascular disease with previous stenting, hypertension, hyperli pidemia, and sick sinus syndrome with pacemaker implantation. Patient follows in the office with Dr. Teague. We have been asked to see the patient in consultation for elevated troponins. Patient examined at the bedside in the emergency room. Patient currently denies chest pain or pressure. She denies shortness of breath. She reports generalized discomfort. She states she is scared about being in the hospital and does not want any procedures performed. * EKG reveals atrial paced rhythm * Chest xray moderate right pleural effusion with mild adjacent atelectasis * Laboratory data: BUN 35. Creatinine 1.63. ProBNP 2810. Troponin 0.067. 0.060. 0.061. * Current home cardiac medications include Lipitor 40 mg at night, Demadex 20 mg Wednesday, metoprolol succinate 100 mg twice a day, Xarelto 15 mg daily and Demadex 40 mg Wednesday * Most recent echocardiogram obtained in July 2021 revealed ejection fraction 55-60%, mild MR, [id number] TR, and mild to moderate pulmonary hypertension * Patient underwent Lexiscan stress test in January 2020 which was negative for ischemia * Cardiac catheterization history: Unknown REVIEW OF SYSTEMS: At the time of my exam: CONSTITUTIONAL: Denies fever or chills. HEENT: Denies blurred vision, vision changes, or eye pain. Denies hemoptysis CARDIOVASCULAR: Denies chest pain. Denies orthopnea. Denies PND. Denies palpitations RESPIRATORY: Denies shortness of breath. GASTROINTESTINAL: Denies abdominal pain. Denies nausea or vomiting. HEMATOLOGIC: Denies bleeding disorders. GENITOURINARY: Denies any blood in urine. SKIN: Denies pruitis. Denies rash. PHYSICAL EXAM: VITAL SIGNS: Reviewed. GENERAL: Well-developed in no acute distress. HEENT: Head is normocephalic. Pupils are equal, round. Sclerae anicteric. Mucous membranes of the mouth are moist. Neck supple. No JVD or thyromegaly LUNGS: Respirations even and unlabored. Lungs essentially clear to auscultation bilaterally. HEART: Regular rate and rhythm. S1 and S2 heard. ABDOMEN: Soft. Nondistended. Nontender. EXTREMITIES: Normal range of motion. No clubbing or cyanosis. Peripheral pu lses intact. Trace bilateral lower extremity edema with dry flaky skin NEUROLOGIC: Awake and alert. Oriented x 2. ASSESSMENT: Generalized weakness Acute hypoxic respiratory failure Moderate sized right pleural effusion Chronic kidney disease Abnormal troponins, flat, not suggestive of acute coronary syndrome Coronary artery disease with previous stenting Paroxysmal atrial fibrillation, on Xarelto outpatient History of anemia with recent admission for GI bleed status post endoscopy Sick sinus syndrome with previous pacemaker implantation Peripheral vascular disease with previous stenting Hypertension Hyperlipidemia PLAN: An acute coronary event has been ruled out Obtain 2-D echo to assess cardiac structure and function Pulmonary following. Possible thoracentesis. Xarelto has been placed on hold Resume home cardiac medications Further recommendations pending patient's course Nurse practitioner note has been reviewed by physician. Signing provider agrees with the documented findings, assessment, and plan of care. Past Medical History Past Medical History: Atrial Fibrillation, Atrial Flutter, Coronary Artery Disease (CAD), Cancer, Heart Failure, COPD, Hyperlipidemia, Hypertension, Liver Disease, Thyroid Disorder, Vascular Disorder Additional Past Medical History / Comment(s): hx Kidney Stones, Chronic N/T BILAT LEGS, WITH BLE EDEMA, states has had lymphedema with weeping valeria lower legs, degenerative arthritis, hx hepatitis C, hx cervical cancer, PVD Last Myocardial Infarction Date:: 2009 History of Any Multi-Drug Resistant Organisms: VRE Date of last positivie culture/infection: 01/14/21 MDRO Source:: VRE URINE Past Surgical History: Appendectomy, Cholecystectomy, Heart Catheterization With Stent, Hysterectomy, Joint Replacement, Pacemaker Additional Past Surgical History / Comment(s): valeria lower ext vascular repairs,2-6-17 abd. aortogram, ERCP, 4 cardiac stents, left hip replacement Past Anesthesia/Blood Transfusion Reactions: Family History of Problems w/ Anesthesia Additional Past Anesthesia/Blood Transfusion Reaction / Comment(s): sister-long time to come out Date of Last Stent Placement:: 2010? Type of Cardiac Device: Permanent Pacemaker Device Placement Date:: 2014 Past Psychological History: No Psychological Hx Reported Smoking Status: Former smoker - Past Family History Son(s) Family Medical History: Cancer Additional Family Medical History / Comment(s): Patient has 3 sons and one has been diagnosed with bladder cancer. Brother(s) Family Medical History: Cancer Additional Family Medical History / Comment(s): Patient has 2 brothers and one was diagnosed with esophageal cancer with metastatic disease. Daughter(s) Family Medical History: Cancer (patient has 3 daughters one of them was diagnosed with leukemia.) Additional Family Medical History / Comment(s): Patient has 3 daughters and one diagnosed with leukemia. Medications and Allergies Home Medications Medication Instructions Recorded Confirmed Type Levothyroxine Sodium [Synthroid] 50 mcg PO DAILY@0600 11/07/14 05/10/23 History Potassium Chloride ER [K-Dur 20] 20 meq PO BID 03/06/19 05/10/23 History Rivaroxaban [Xarelto] 15 mg PO DAILY@1800 07/23/21 05/10/23 History Metoprolol Succinate (ER) [Toprol 100 mg PO BID 05/04/23 05/10/23 History XL] SILVER sulfADIAZINE Cream 1 applic TOPICAL BID PRN 05/04/23 05/10/23 History [Silvadene 1% Cream] Torsemide [Demadex] 20 mg PO SUTUTHSA 05/04/23 05/10/23 History Torsemide [Demadex] 40 mg PO MOWEFR 05/04/23 05/10/23 History allopurinoL [Zyloprim] 100 mg PO DAILY 05/04/23 05/10/23 History Pantoprazole [Protonix] 40 mg PO BID #10 tab 05/08/23 05/10/23 Rx Acetaminophen [Tylenol] 650 mg PO BID PRN 05/10/23 05/10/23 History Atorvastatin [Lipitor] 40 mg PO HS 05/10/23 05/10/23 History traMADol HCL 50 mg PO Q6H PRN 05/10/23 05/10/23 History Allergies Allergy/AdvReac Type Severity Reaction Status Date / Time hydromorphone [From Dilaudid] AdvReac Nausea & Verified 05/10/23 15:06 Vomiting lorazepam [From Ativan] AdvReac Hallucinati Verified 05/10/23 15:06 ons Physical Exam Vitals: Vital Signs Temp Pulse Pulse Resp BP BP Pulse Ox 05/11/23 07:47 97.4 F L 60 18 119/64 96 05/11/23 06:51 61 18 116/60 93 L 05/11/23 03:24 60 16 100/49 96 05/11/23 02:30 60 16 97/66 96 05/11/23 02:00 61 18 122/61 96 05/11/23 01:33 60 16 134/56 96 05/11/23 00:30 98.1 F 73 18 135/61 96 05/11/23 00:00 60 17 112/62 97 05/10/23 22:00 60 16 108/59 95 05/10/23 20:00 60 16 132/58 96 05/10/23 19:00 68 14 142/62 100 05/10/23 18:00 65 17 109/99 98 05/10/23 17:29 68 16 132/69 97 05/10/23 15:31 60 16 106/45 96 05/10/23 13:34 96.8 F L 59 L 18 92/59 100 Intake and Output 05/10/23 05/11/23 05/11/23 22:59 06:59 14:59 Other: Voiding Method Diaper Results 05/11/23 04:39 05/11/23 04:39 Cardiac Enzymes 05/10/23 05/10/23 05/10/23 Range/Units 14:44 14:44 19:12 AST 31 (14-36) U/L Troponin I 0.067 H* 0.060 H* (0.000-0.034) ng/mL 05/10/23 05/11/23 Range/Units 21:15 04:39 AST 27 (14-36) U/L Troponin I 0.061 H* (0.000-0.034) ng/mL Coagulation 05/10/23 Range/Units 14:44 PT 11.9 (10.0-12.5) sec APTT 25.2 (22.0-30.0) sec CBC 05/10/23 05/11/23 Range/Units 14:44 04:39 WBC 4.3 5.6 (3.8-10.6) k/uL RBC 2.57 L 2.47 L (3.80-5.40) m/uL Hgb 7.6 L 7.4 L (11.4-16.0) gm/dL Hct 24.9 L 24.0 L (34.0-46.0) % Plt Count 135 L 127 L (150-450) k/uL Comprehensive Metabolic Panel 05/10/23 05/11/23 Range/Units 14:44 04:39 Sodium 141 140 (137-145) mmol/L Potassium 4.1 3.6 (3.5-5.1) mmol/L Chloride 107 103 (98-107) mmol/L Carbon Dioxide 25 31 H (22-30) mmol/L BUN 42 H 35 H (7-17) mg/dL Creatinine 1.71 H 1.63 H (0.52-1.04) mg/dL Glucose 119 H 86 (74-99) mg/dL Calcium 8.9 8.8 (8.4-10.2) mg/dL AST 31 27 (14-36) U/L ALT 19 18 (4-34) U/L Alkaline Phosphatase 117 132 H (38-126) U/L Total Protein 6.2 L 6.0 L (6.3-8.2) g/dL Albumin 2.9 L 2.8 L (3.5-5.0) g/dL Current Medications Generic Name Dose Route Start Last Admin Trade Name Freq PRN Reason Stop Dose Admin Acetaminophen 650 mg 05/10/23 18:45 Acetaminophen Tab 325 Mg Tab PO Q6HR PRN Mild Pain or Fever > 100.5 Hydrocodone Bitart/Acetaminophen 1 each 05/10/23 18:42 05/11/23 01:31 Hydrocodone/Apap 5-325mg 1 Each Tab PO 1 each Q6HR PRN Administration Pain Al Hydroxide/Mg Hydroxide 15 ml 05/10/23 18:45 Mag Hydrox/Al Hydrox/Simeth 30 Ml Cup PO Q6HR PRN Indigestion Allopurinol 100 mg 05/11/23 09:00 Allopurinol 100 Mg Tab PO DAILY SERGIO Atorvastatin Calcium 40 mg 05/10/23 21:00 05/10/23 20:23 Atorvastatin 40 Mg Tab PO 40 mg HS SERGIO Administration Docusate Sodium 100 mg 05/10/23 18:45 Docusate 100 Mg Cap PO BID PRN Constipation Sodium Chloride 1,000 mls @ 75 mls/hr 05/10/23 17:45 05/10/23 18:30 Saline 0.9% IV Not Given .[id number] SERGIO Levothyroxine Sodium 50 mcg 05/11/23 06:00 05/11/23 06:56 Levothyroxine 50 Mcg Tab PO 50 mcg DAILY@0600 SERGIO Administration Metoprolol Succinate 100 mg 05/10/23 21:00 05/10/23 20:30 Metoprolol Succinate (Er) 100 Mg Tab.Er.24h PO 100 mg BID SERGIO Administration Naloxone HCl 0.2 mg 05/10/23 17:40 Naloxone 0.4 Mg/Ml 1 Ml Vial IV Q2M PRN Opioid Reversal Ondansetron HCl 4 mg 05/10/23 18:45 Ondansetron 4 Mg/2 Ml Vial IVP Q8HR PRN Nausea And Vomiting Torsemide 20 mg 05/11/23 09:00 Torsemide 20 Mg Tab PO SUTUTHSA SERGIO Torsemide 40 mg 05/12/23 09:00 Torsemide 20 Mg Tab PO MOWEFR [facility] Intake and Output 05/10/23 05/11/23 05/11/23 22:59 06:59 14:59 Other: Voiding Method Diaper 05/11/23 04:39 05/11/23 04:39
--- NOTE | 2023-05-11 13:05 | P.PN ---
Subjective Progress Note Date: 05/11/23 87 year old F with PMH atrial fibrillation on Xarelto, hypothyroidism, dyslipidemia, diastolic CHF, hypertension, CAD status post stent, arrhythmia status post pacemaker presenting with drowsiness. Recently admitted from 05/04-05/08 for concerns of GI bleed. EGD showed antral ulcer. Discharged to SNF. Family reports patient is too weak and lethargic to participate in rehab. Daughter reports patient appears for short of breath while on the phone. Daughter reports confusion but she was at times confused prior to her initial hospitalization. Patient reports dysuria. No bowel movement since her discharge. Denies chest pain. In the ED she underwent extensive evaluation. CBC Hg 7.6 Hct 24.9 Plt 135. CMP BUN 42 Cr 1.71 glu 119. TSH/FT4 within normal limits. Troponin 0.067. EKG atrial pacemaker. CXR moderate right pleural effusion. CT brain no acute pathology. 05/11 Patient was seen and examined. Tlow 94.5F rectally. BP low 86/51. CBC Hg 7.4 Plt 127. BMP bicarb 31, BUN 35, Cr 1.63, alk phos 132, alb 2.8. TSH 3.98 FT4 1.63. UA negative for LE or nitrite. BNP 2810. Troponins flat at 0.067, 0.06, 0 .061. Chest US shows mild-moderate pleural effusion. General: non toxic, no distress, appears at stated age Derm: warm, dry, pale Head: atraumatic, normocephalic, symmetric Eyes: EOMI, no lid lag, anicteric sclera Cardiovascular: S1S2 reg, no murmur Lungs: Decreased BS bilateral, no rhonchi, no rales , no accessory muscle use Abdominal: soft, suprapubic tenderness, no guarding, no appreciable or ganomegaly Ext: no gross muscle atrophy, no edema, no contractures Neuro: no focal neuro deficits Psych: Alert, oriented, appropriate affect Based on my assessment of this patient, this patient meets a high complexity level of care. Patient has an acute diagnosis of troponin elevation that poses a threat to life or bodily function. Acute hypoxic respiratory failure: Likely due to right pleural effusion. Supplemental O2 to maintain O2 saturation > 92%. Right pleural effusion: Most recent Echo shows preserved EF with diastolic dysfunction. Does not appears volume overloaded. Continue Torsemide. Consult Pulmonology. Hypothermia: Rectal temp of 94.5F. Thyroid panel within normal limits. No obvious source of infection. UA negative. Obtain pro-broderick and blood cultures. Obtain cortisol level. Hypotension: Discontinue Metoprolol. Telemetry monitoring. Q2H BP monitoring. Troponin elevation: Likely poor clearance from CKD. Troponin flat, ACS ruled out. Echocardiogram ordered. Cardiology consult. Normocytic anemia with recent GI bleed: Hg stable but borderline low. Hold Xarelto for now. Trend CBC. Stool for occult blood. May need C-scope. Generalized weakness: Likely related to all of the above. PT and OT consult. Fall precautions. Chronic conditions: Atrial fibrillation, hypothyroidism, dyslipidemia, hypertension, CAD, diastolic CHF, chronic kidney disease CODE STATUS: NO CODE DVT Prophylaxis: SCDs GI Prophylaxis: Protonix IV Designated medical POA if patient is not able to make medical decisions for themselves: Daughter who is the guardian. I have reviewed the following cognos consultant notes: Pulm, Cardio note. I have reviewed the results of the following tests: CBC, BMP. TSH/FT4. UA. BNP. Troponin. Chest US. I have ordered the following tests: Cortisol. Procal. BCx. Pending: Echo, stool occult blood. I have discussed the care of this patient with the following independent historian: I have independently interpreted the following test below: I have discussed the management of this patient with the following physician: Objective - Vital Signs Vital signs: Vital Signs Temp 94.5 F L 05/11/23 09:00 Pulse 60 05/11/23 09:00 Resp 18 05/11/23 09:00 BP 86/51 05/11/23 09:00 Pulse Ox 96 05/11/23 09:00 FiO2 Intake & Output 05/10/23 05/11/23 05/11/23 18:59 06:59 18:59 Weight 83.461 kg Other: Voiding Method Diaper - Labs CBC & Chem 7: 05/11/23 04:39 05/11/23 04:39 Labs: Abnormal Lab Results - Last 24 Hours (Table) 05/10/23 05/10/23 05/10/23 Range/Units 14:44 14:44 14:44 RBC 2.57 L (3.80-5.40) m/uL Hgb 7.6 L (11.4-16.0) gm/dL Hct 24.9 L (34.0-46.0) % MCHC 30.7 L (31.0-37.0) g/dL RDW 17.5 H (11.5-15.5) % Plt Count 135 L (150-450) k/uL Lymphocytes # (Manual) 0.95 L (1.0-4.8) k/uL Carbon Dioxide (22-30) mmol/L BUN 42 H (7-17) mg/dL Creatinine 1.71 H (0.52-1.04) mg/dL Glucose 119 H (74-99) mg/dL Alkaline Phosphatase (38-126) U/L Troponin I 0.067 H* (0.000-0.034) ng/mL Total Protein 6.2 L (6.3-8.2) g/dL Albumin 2.9 L (3.5-5.0) g/dL Urine Protein (Negative) Ur Leukocyte Esterase (Negative) Urine WBC Clumps (None) /hpf Urine Bacteria (None) /hpf 05/10/23 05/10/23 05/10/23 Range/Units 17:58 19:12 21:15 RBC (3.80-5.40) m/uL Hgb (11.4-16.0) gm/dL Hct (34.0-46.0) % MCHC (31.0-37.0) g/dL RDW (11.5-15.5) % Plt Count (150-450) k/uL Lymphocytes # (Manual) (1.0-4.8) k/uL Carbon Dioxide (22-30) mmol/L BUN (7-17) mg/dL Creatinine (0.52-1.04) mg/dL Glucose (74-99) mg/dL Alkaline Phosphatase (38-126) U/L Troponin I 0.060 H* 0.061 H* (0.000-0.034) ng/mL Total Protein (6.3-8.2) g/dL Albumin (3.5-5.0) g/dL Urine Protein Trace H (Negative) Ur Leukocyte Esterase Small H (Negative) Urine WBC Clumps Rare H (None) /hpf Urine Bacteria Moderate H (None) /hpf 12/11/23 12/12/23 12/12/23 Range/Units 22:45 04:39 04:39 RBC 2.47 L (3.80-5.40) m/uL Hgb 7.4 L (11.4-16.0) gm/dL Hct 24.0 L (34.0-46.0) % MCHC (31.0-37.0) g/dL RDW 17.3 H (11.5-15.5) % Plt Count 127 L (150-450) k/uL Lymphocytes # (Manual) (1.0-4.8) k/uL Carbon Dioxide 31 H (22-30) mmol/L BUN 35 H (7-17) mg/dL Creatinine 1.63 H (0.52-1.04) mg/dL Glucose (74-99) mg/dL Alkaline Phosphatase 132 H (38-126) U/L Troponin I (0.000-0.034) ng/mL Total Protein 6.0 L (6.3-8.2) g/dL Albumin 2.8 L (3.5-5.0) g/dL Urine Protein (Negative) Ur Leukocyte Esterase (Negative) Urine WBC Clumps (None) /hpf Urine Bacteria Rare H (None) /hpf
[2023-05-11] MEDS: SODIUM CHLORIDE 0.9% 1,000 ML IV SCH (18:05)
[2023-05-11] MEDS: ATORVASTATIN 40 MG TAB PO SCH (20:10)
[2023-05-12] MEDS: LEVOTHYROXINE 50 MCG TAB PO SCH (06:03)
[2023-05-12] MEDS: TORSEMIDE 20 MG TAB PO SCH (09:00)
[2023-05-12] MEDS: allopurinoL 100 MG TAB PO SCH (09:00)
[2023-05-12 09:29] LABS: African American GFR (CKD) 40 (>60 ml/min/1.73 sqM); Anion Gap 10 mmol/L; Blood Urea Nitrogen 34 mg/dL (7-17); Calcium 8.9 mg/dL (8.4-10.2); Carbon Dioxide 29 mmol/L (22-30); Chloride 100 mmol/L (98-107); Glucose 116 mg/dL (74-99); Non-African American GFR(CKD) 34 (>60 ml/min/1.73 sqM); Potassium 3.3 mmol/L (3.5-5.1); Sodium 139 mmol/L (137-145)
[2023-05-12 09:40] LABS: Anisocytosis Slight; HCT 23.6 % (34.0-46.0); HGB 7.4 gm/dL (11.4-16.0); Hypochromasia Marked; MCH 29.7 pg (25.0-35.0); MCHC 31.2 g/dL (31.0-37.0); MCV 95.4 fL (80.0-100.0); Macrocytosis Slight; Mean Platelet Volume 8.5; Platelet Count 140 k/uL (150-450); Poikilocytosis Moderate; RBC 2.48 m/uL (3.80-5.40); RDW 17.2 % (11.5-15.5)
[2023-05-12] MEDS ORDERED: POTASSIUM CHLORIDE ER 20 MEQ TAB.ER PO STA (10:50)
--- NOTE | 2023-05-12 10:52 | P.PN ---
Subjective Progress Note Date: 05/12/23 87 year old F with PMH atrial fibrillation on Xarelto, hypothyroidism, dyslipidemia, diastolic CHF, hypertension, CAD status post stent, arrhythmia status post pacemaker presenting with drowsiness. Recently admitted from 05/04-05/08 for concerns of GI bleed. EGD showed antral ulcer. Discharged to SNF. Family reports patient is too weak and lethargic to participate in rehab. Daughter reports patient appears for short of breath while on the phone. Daughter reports confusion but she was at times confused prior to her initial hospitalization. Patient reports dysuria. No bowel movement since her discharge. Denies chest pain. In the ED she underwent extensive evaluation. CBC Hg 7.6 Hct 24.9 Plt 135. CMP BUN 42 Cr 1.71 glu 119. TSH/FT4 within normal limits. Troponin 0.067. EKG atrial pacemaker. CXR moderate right pleural effusion. CT brain no acute pathology. 05/11 Patient was seen and examined. Complaining about the purewik and urinary discomfort. Tlow 94.5F rectally. BP low 86/51. CBC Hg 7.4 Plt 127. BMP bicarb 31, BUN 35, Cr 1.63, alk phos 132, alb 2.8. TSH 3.98 FT4 1.63. UA negative for LE or nitrite. BNP 2810. Troponins flat at 0.067, 0.06, 0.061. Chest US shows mild-moderate pleural effusion. 05/12 Patient was seen and examined. Much more comfortable after purewik was discontinued. T ranging from 94.5-97.5F since yesterday. Started on bear hugger yesterday. BP is improved SBP in the 100s since yesterday. Procal 0.08. Cortisol 12. CBC Hg 7.4 Hct 23.6 Plt 140. BMP K 3.3, BUN 34, Cr 1.39, glu 116. General: non toxic, no distress, appears at stated age Derm: warm, dry, pale Head: atraumatic, normocephalic, symmetric Eyes: EOMI, no lid lag, anicteric sclera Cardiovascular: S1S2 reg, no murmur Lungs: Decreased BS bilateral, no rhonchi, no rales , no accessory muscle use Abdominal: soft, suprapubic tenderness, no guarding, no appreciable organomegaly Ext: no gross muscle atrophy, no edema, no contractures Neuro: no focal neuro deficits Psych: Alert, oriented, appropriate affect Based on my assessment of this patient, this patient meets a moderate complexity level of care. Patient has an acute diagnosis of troponin elevation that poses a threat to life or bodily function. Acute hypoxic respiratory failure: Likely due to right pleural effusion. Supplemental O2 to maintain O2 saturation > 92%. Right pleural effusion: Most recent Echo shows preserved EF with diastolic dysfunction. Does not appears volume overloaded. Continue Torsemide. Pulmonology on board. Hypothermia: Rectal temp of 94.5F. Thyroid panel within normal limits. No obvious source of infection. UA negative. Obtain pro-broderick and blood cultures. Obtain cortisol level. Hypotension: Discontinue Metoprolol. Telemetry monitoring. Q2H BP monitoring. Hypokalemia: KCl 40 meq PO x 1 ordered today. Troponin elevation: Likely poor clearance from CKD. Troponin flat, ACS ruled out. Echocardiogram ordered. Cardiology consult. Normocytic anemia with recent GI bleed: Hg stable but borderline low. Hold Xarel to for now. Trend CBC. Stool for occult blood. May need C-scope. Generalized weakness: Likely related to all of the above. PT and OT consult. Fall precautions. Chronic conditions: Atrial fibrillation, hypothyroidism, dyslipidemia, hypertension, CAD, diastolic CHF, chronic kidney disease CODE STATUS: NO CODE DVT Prophylaxis: SCDs GI Prophylaxis: Protonix IV Designated medical POA if patient is not able to make medical decisions for themselves: Daughter who is the guardian. I have reviewed the following bridal sales consultant notes: Pulm, Cardio note. I have reviewed the results of the following tests: Cortisol. Procal. CBC, BMP. I have ordered the following tests: Pending: Echo, stool occult blood, BCx I have discussed the care of this patient with the following independent historian: I have independently interpreted the following test below: I have discussed the management of this patient with the following physician: Objective - Vital Signs Vital signs: Vital Signs Temp 97.4 F L 05/12/23 02:59 Pulse 66 05/12/23 02:59 Resp 20 05/12/23 02:59 BP 101/62 05/12/23 02:59 Pulse Ox 99 05/12/23 02:59 FiO2 Intake & Output 05/11/23 05/12/23 05/12/23 18:59 06:59 18:59 Intake Total 0 Output Total 1000 Balance -1000 Weight 83.461 kg Intake: Oral 0 Output: Urine 1000 Other: Voiding Method Diaper Indwelling Catheter # Voids 1 - Labs CBC & Chem 7: 05/12/23 09:02 05/12/23 09:02
--- NOTE | 2023-05-12 13:42 | P.PN ---
Subjective HISTORY OF PRESENT ILLNESS: This is a 87-year-old female with a past medical history significant for atrial fibrillation, coronary artery disease with previous stenting of the mid RCA in 2012, peripheral vascular disease with previous stenting, hypertension, hyperlipidemia, and sick sinus syndrome with pacemaker implantation. Patient follows in the office with Dr. Teague. We have been asked to see the patient in consultation for elevated troponins. Patient examined at the bedside in the emergency room. Patient currently denies chest pain or pressure. She denies shortness of breath. She reports generalized discomfort. She states she is scared about being in the hospital and does not want any procedures performed. * EKG reveals atrial paced rhythm * Chest xray moderate right pleural effusion with mild adjacent atelectasis * Laboratory data: BUN 35. Creatinine 1.63. ProBNP 2810. Troponin 0.067. 0.060. 0.061. * Current home cardiac medications include Lipitor 40 mg at night, Demadex 20 mg Wednesday, metoprolol succinate 100 mg twice a day, Xarelto 15 mg daily and Demadex 40 mg Wednesday * Most recent echocardiogram obtained in July 2021 revealed ejection fraction 55-60%, mild MR, [id number] TR, and mild to moderate pulmonary hypertension * Patient underwent Lexiscan stress test in January 2020 which was negative for ischemia * Cardiac catheterization history: Unknown 05/12/2023 Patient examined this morning. She is sitting up in the chair. Patient denies chest pain or pressure. Denies SOB. Reports feeling tired today. Blood pressures are running on the lower side. PHYSICAL EXAM: VITAL SIGNS: Reviewed. GENERAL: Well-developed in no acute distress. HEENT: Head is normocephalic. Pupils are equal, round. Sclerae anicteric. Mucous membranes of the mouth are moist. Neck supple. No JVD or thyromegaly LUNGS: Respirations even and unlabored. Lungs essentially clear to auscultation bilaterally. HEART: Regular rate and rhythm. S1 and S2 heard. ABDOMEN: Soft. Nondistended. Nontender. EXTREMITIES: Normal range of motion. No clubbing or cyanosis. Peripheral pulses intact. Trace bilateral lower extremity edema with dry flaky skin NEUROLOGIC: Awake and alert. Oriented x 2. ASSESSMENT: Generalized weakness Acute hypoxic respiratory failure Moderate sized right pleural effusion Chronic kidney disease Abnormal troponins, flat, not suggestive of acute coronary syndrome Coronary artery disease with previous stenting Paroxysmal atrial fibrillation, on Xarelto outpatient History of anemia with recent admission for GI bleed status post endoscopy Sick sinus syndrome with previous pacemaker implantation Peripheral vascular disease with previous stenting Hypertension Hyperlipidemia PLAN: No plans for thoracentesis per pulmonary. Patient has been resumed on Xarelto Continue additional cardiac medications No further inpatient recommendations from a cardiac standpoint We will sign off. Please reconsult if needed. Nurse practitioner note has been reviewed by physician. Signing provider agrees with the documented findings, assessment, and plan of care. Objective - Vital Signs Vital signs: Vital Signs Temp 97.4 F L 05/12/23 02:59 Pulse 70 05/12/23 08:00 Resp 16 05/12/23 08:00 BP 88/46 05/12/23 08:00 Pulse Ox 99 05/12/23 08:17 FiO2 Intake & Output 05/11/23 05/12/23 05/12/23 18:59 06:59 18:59 Intake Total 0 118 Output Total 1000 Balance -1000 118 Weight 83.461 kg Intake: Oral 0 118 Output: Urine 1000 Other: Voiding Method Diaper Indwelling Catheter # Voids 1 - Labs CBC & Chem 7: 05/12/23 09:02 05/12/23 09:02 Labs: Abnormal Lab Results - Last 24 Hours (Table) 05/12/23 05/12/23 Range/Units 09:02 09:02 RBC 2.48 L (3.80-5.40) m/uL Hgb 7.4 L (11.4-16.0) gm/dL Hct 23.6 L (34.0-46.0) % RDW 17.2 H (11.5-15.5) % Plt Count 140 L (150-450) k/uL Potassium 3.3 L (3.5-5.1) mmol/L BUN 34 H (7-17) mg/dL Creatinine 1.39 H (0.52-1.04) mg/dL Glucose 116 H (74-99) mg/dL
--- NOTE | 2023-05-12 14:33 | P.PN ---
Subjective Progress Note Date: 05/12/23 Principal diagnosis: Acute hypoxic respiratory failure secondary to acute systolic congestive heart failure am seeing this patient in new consultation today 05/11/2023 in the ER, room 20, after she was sent in from [facility] with generalized weakness/fatigue and unable to participate in rehab. Patient is a 87-year-old female with past medical history significant for atrial fibrillation normally anticoagulated on Xarelto, coronary artery disease with previous PCI/stenting, permanent pacemaker, heart failure, hyperlipidemia, hypertension, hypothyroidism, among other things. She was just recently admitted earlier this month for acute GI bleed. She did undergo EGD at that time which showed a 5 mm antral ulcer with no active bleeding and a small hiatal hernia. Patient also reports worsening shortness breath over the last 2 weeks. Especially worse on exertion. She is anemic, hemoglobin is stable at 7.6 gm/dl. No further reports of bleeding or melanotic stools. No nausea or vomiting, abdominal pain, constipation, diarrhea. Denies any chest pain, palpitations, or worsening lower extremity edema. She does have chronic lower extremity swelling, however, not worse than normal. She takes Demadex outpatient. Denies fever. Does have an occasional intermittent nonprod uctive cough. Denies any history of pulmonary disease such as asthma or COPD. She is currently lying in bed, on 2 L per minute nasal cannula, in no acute distress. It appears that she has pulled out her IV. Chest x-ray on arrival demonstrated a moderate right pleural effusion with adjacent atelectasis and trace left pleural effusion. WBC on arrival shows a WBC count of 4.3, hemoglobin 7.6, hematocrit 24.9, platelets 135. BMP on arrival shows sodium of 141, potassium 4.1, chloride 107, serum bicarb 25, BUN 42, creatinine 1.71, glucose 119. She does have a component of chronic kidney disease. Initial urinalysis was likely contaminated, repeat no evidence of UTI. Patient denies any urinary complaints. Troponins mildly elevated at 0.067, 0.06, and 0.061 respectively. Not consistent with ACS. ECG shows an atrial paced rhythm at 60 bpm. No evidence of acute ischemia. Afebrile. Vital signs are stable. Patient was reevaluated today on 05/12/2023, feeling much per her today, breathing a lot easier, she is on 2 L nasal cannula and her O2 saturations 99% patient has been receiving diuretics, I reviewed the results of her ultrasound of the chest, and recommended no need for thoracentesis patient is not symptomatic, she is oxygenating well, and obvious she is improving clinically an d responding to diuretics hence I see no need for thoracentesis at this point. WBC count is 6 hemoglobin is 7.4, basic metabolic profile is normal BUN is 34 creatinine is down to 1.39 from 1.63 yesterday in spite of diuresis. Pro- calcitonin level is 0.08, Objective - Vital Signs Vital signs: Vital Signs Temp 97.4 F L 05/12/23 08:00 Pulse 65 05/12/23 12:00 Resp 16 05/12/23 12:00 BP 111/64 05/12/23 12:00 Pulse Ox 98 05/12/23 12:00 FiO2 Intake & Output 05/11/23 05/12/23 05/12/23 18:59 06:59 18:59 Intake Total 0 598 Output Total 1000 450 Balance -1000 148 Weight 83.461 kg Intake: Oral 0 598 Output: Urine 1000 450 Other: Voiding Method Diaper Indwelling Catheter Indwelling Catheter # Voids 1 - Exam Physical Exam: Revealed 87-year-old female in no distress Head: Atraumatic, normocephalic HEENT:[Neck is supple.] [No neck masses.] [No thyromegaly.] [No JVD.] Chest: [Likely diminished breath sounds at the right base, left side is clear. Cardiac Exam: [Normal S1 and S2, no S3 gallop, no murmur.] Abdomen: [Soft, nontender, no megaly, no rebound, no guarding, normal bowel sounds.] Extremities: [No clubbing, no edema, no cyanosis.] Neurological Exam: [No focal neurologic deficit.] Alert and oriented 3 Psychiatric: Normal mood affect and normal mental status examination. Skin: No rashes - Labs CBC & Chem 7: 05/12/23 09:02 05/12/23 09:02 Labs: Abnormal Lab Results - Last 24 Hours (Table) 05/12/23 05/12/23 Range/Units 09:02 09:02 RBC 2.48 L (3.80-5.40) m/uL Hgb 7.4 L (11.4-16.0) gm/dL Hct 23.6 L (34.0-46.0) % RDW 17.2 H (11.5-15.5) % Plt Count 140 L (150-450) k/uL Potassium 3.3 L (3.5-5.1) mmol/L BUN 34 H (7-17) mg/dL Creatinine 1.39 H (0.52-1.04) mg/dL Glucose 116 H (74-99) mg/dL Assessment and Plan Assessment: Impression: Acute systolic congestive heart failure Acute hypoxemic respiratory failure, likely secondary to right-sided pleural effusion Normocytic normochromic anemia, recent GI bleed status post EGD Generalized fatigue, secondary to above Elevated troponins, flat and not reflective of ACS Chronic kidney disease, stage IV History of permanent pacemaker, currently atrial paced History of paroxysmal atrial fibrillation, normally anticoagulated on Xarelto History of coronary artery disease with previous PCI/stenting History peripheral vascular disease History of nonischemic cardiomyopathy Hyperlipidemia Hypertension Hypothyroidism History of cervical cancer History of hepatitis C Obesity, with a BMI of 33.7 kg/m Former smoker Recommendation: Continue Demadex Continue Xarelto Resume home meds No plans for thoracentesis Consider discharge planning once cleared by cardiology Time with Patient: Less than 30
[2023-05-12] MEDS: RIVAROXABAN 15 MG TAB PO SCH (16:43)
[2023-05-12] MEDS: ATORVASTATIN 40 MG TAB PO SCH (19:57)
[2023-05-13] MEDS: LEVOTHYROXINE 50 MCG TAB PO SCH (06:40)
[2023-05-13 08:22] LABS: Anisocytosis Slight; HGB 7.1 gm/dL (11.4-16.0); Hypochromasia Marked; MCH 28.6 pg (25.0-35.0); MCHC 29.6 g/dL (31.0-37.0); MCV 96.5 fL (80.0-100.0); Macrocytosis Slight; Mean Platelet Volume 9.6; Platelet Count 137 k/uL (150-450); Poikilocytosis Moderate; RBC 2.49 m/uL (3.80-5.40); RDW 17.2 % (11.5-15.5); WBC 5.5 k/uL (3.8-10.6)
[2023-05-13 08:37] LABS: African American GFR (CKD) 35 (>60 ml/min/1.73 sqM); Anion Gap 4 mmol/L; Blood Urea Nitrogen 32 mg/dL (7-17); Calcium 8.7 mg/dL (8.4-10.2); Carbon Dioxide 37 mmol/L (22-30); Chloride 99 mmol/L (98-107); Glucose 81 mg/dL (74-99); Non-African American GFR(CKD) 31 (>60 ml/min/1.73 sqM); Potassium 3.5 mmol/L (3.5-5.1); Sodium 140 mmol/L (137-145)
[2023-05-13] MEDS: allopurinoL 100 MG TAB PO SCH (08:43)
[2023-05-13] MEDS: TORSEMIDE 20 MG TAB PO SCH (08:43)
--- NOTE | 2023-05-13 10:00 | CA ---
Transthoracic Echo Report Name: Rohini Hansen Age: 87 Gender: F : 1935 Exam Date: 05/12/2023 14:46 Exam Location: [facility] Ht (in): 62 Wt (lb): 184 Ordering Physician: Alfred Salgado MD Attending/Referring Phys: Kelp Gatherer Fredy Santo Procedure CPT: Indications: troponin Cardiac Hx: Technical Quality: Contrast 1: Total Dose (mL): Contrast 2: Total Dose (mL): MEASUREMENTS (Male / Female) Normal Values 2D ECHO LV Diastolic Diameter PLAX 3.3 cm 4.2 - 5.9 / 3.9 - 5.3 cm LV Systolic Diameter PLAX 2.7 cm IVS Diastolic Thickness 0.8 cm 0.6 - 1.0 / 0.6 - 0.9 cm LVPW Diastolic Thickness 0.7 cm 0.6 - 1.0 / 0.6 - 0.9 cm LV Relative Wall Thickness 0.4 RV Internal Dim ED PLAX 2.3 cm LVOT Diameter 1.9 cm Aortic Root Diameter 2.6 cm LA Systolic Diameter LX 2.0 cm 3.0 - 4.0 / 2.7 - 3.8 cm LV Diastolic Volume MOD BP 37.2 cm??? 67 - 155 / 56 - 104 cm??? LV Systolic Volume MOD BP 11.8 cm??? 22 - 58 / 19 - 49 cm??? LV Ejection Fraction MOD BP 68.2 % >= 55 % LV Cardiac Index MOD BP 886.9 cm???/min???m??? LV Diastolic Volume MOD 4C 24.0 cm??? LV Systolic Volume MOD 4C 10.6 cm??? LV Ejection Fraction MOD 4C 55.7 % LV Cardiac Index MOD 4C 468.2 cm???/min???m??? LV Diastolic Length 4C 5.8 cm LV Systolic Length 4C 5.5 cm LV Diastolic Volume MOD 2C 48.9 cm??? LV Systolic Volume MOD 2C 13.4 cm??? LV Ejection Fraction MOD 2C 72.7 % LV Cardiac Index MOD 2C 1240.9 cm???/min???m??? LV Diastolic Length 2C 7.0 cm LV Systolic Length 2C 5.6 cm LA Volume 23.5 cm??? 18 - 58 / 22 - 52 cm??? LA Volume Index 12.1 cm???/m??? 16 - 28 cm???/m??? DOPPLER AV Peak Velocity 122.9 cm/s AV Peak Gradient 6.0 mmHg LVOT Peak Velocity 70.5 cm/s LVOT Peak Gradient 2.0 mmHg LVOT Velocity Time Integral 19.7 cm LVOT Stroke Volume 56.9 cm??? LVOT Stroke Volume Index 30.8 ml/m??? LVOT Cardiac Index 1987.5 cm???/min???m??? AV Area Cont Eq pk 1.7 cm??? MV Peak Velocity 112.8 cm/s MV Peak Gradient 5.1 mmHg MV Mean Velocity 55.3 cm/s MV Mean Gradient 1.6 mmHg MV Velocity Time Integral 34.2 cm MR Peak Velocity 276.0 cm/s MR Peak Gradient 30.5 mmHg Mitral E Point Velocity 99.9 cm/s Mitral A Point Velocity 84.2 cm/s Mitral E to A Ratio 1.2 MV Deceleration Time 191.2 ms MV E' Velocity 6.9 cm/s Mitral E to MV E' Ratio 14.4 TR Peak Velocity 305.6 cm/s TR Peak Gradient 37.3 mmHg Right Ventricular Systolic Press 47.4 mmHg PV Peak Velocity 84.4 cm/s PV Peak Gradient 2.8 mmHg FINDINGS Left Ventricle Normal LV size and wall thickness. Left ventricular ejection fraction is estimated at 55-60 %. No obvious regional wall motion abnormality Right Ventricle Normal right ventricular size. RVSP= 51mmHg. Right Atrium Normal right atrial size. Left Atrium Normal left atrial size. Mitral Valve Structurally normal mitral valve. Mild to moderate MR. Aortic Valve Trileaflet aortic valve. Mild AV calcification/sclerosis. No aortic stenosis. No aortic regurgitation. Tricuspid Valve Tricuspid valve not well visualized. Moderate TR. Pulmonic Valve Pulmonic valve not well visualized. No pulmonic regurgitation. Pericardium Not well visualized. Aorta Normal size aortic root. CONCLUSIONS LVEF estimated at 55% No obvious regional wall motion abnormality Mild to moderate MR. Moderate TR. Aortic sclerosis with no stenosis. Pulmonary hypertension with RVSP estimated at 50 mmHg Dilated IVC with no respiratory collapsed Previewed by: Dr Zack Graham (Electronically Signed) Final Date: 13 May 2023 09:59
--- NOTE | 2023-05-13 12:42 | CDI ---
Documentation Clarification Form Date: 05/13/2023 12:08:13 PM From: Willa Pisano RN CCDS Phone: [phone] Admit Date: 05/11/2023 12:59:00 PM Patient Name: Rohini Hansen Visit Number: [id number] Discharge Date: ATTENTION: The Clinical Documentation Specialists (CDI) and [facility] Coding Staff appreciate your assistance in clarifying documentation. Please respond to the clarification below the line at the bottom and electronically sign. The CDI & [facility] Coding staff will review the response and follow-up if needed. Please note: Queries are made part of the Legal Health Record. If you have any questions, please contact the author of this message via ITS. Dr. Alfred Salgado Conflicting documentation has been found in the medical record. As attending physician, please provide clarification. Diastolic Heart Failure, Medicine note, 05/12 Acute systolic Heart Failure, Pulmonology note, 05/12 History/Risk Factors: 87 year old female presents with being to weak and lethargic to participate in rehab. Recent admission for GI Bleed with antral ulcer. Medical History: Atrial Fibrillation, Hypothyroidism, HTN, CAD, Diastolic CHF and CKD. H&P, 05/10. Clinical Indicators: CXR, 05/10: Moderate right pleural effusion with mild adjacent atelectasis BNP, 05/11: 2810 ECHO, LVEF estimated at 55%, mild to moderate MR, moderate TR, Aortic sclerosis, Pulmonary HTN Treatment: 05/10 05/11 Toprol XL 100mg PO BID, 05/11 Demadex 20mg PO SUTUTHSA SERGIO, 05/12 Demadex 40mg PO MOWEFR SERGIO Please clarify which diagnosis is most appropriate: [ ] Acute Diastolic Heart Failure [ ] Acute Systolic Heart Failure [ x ] Chronic Diastolic Heart Failure [ ] Other (please specify) [ ] Unable to determine (Template Last Revised: July 2020) MTDD
--- NOTE | 2023-05-13 12:57 | XR ---
EXAMINATION TYPE: XR chest 1V portable DATE OF EXAM: 05/13/2023 11:35 AM CLINICAL INDICATION:Female, 87 years old with history of Effusions; [facility] COMPARISON: Chest radiographs from 05/10/2023 TECHNIQUE: XR chest 1V portable Frontal view of the chest. FINDINGS: Lungs/Pleura: No evidence of focal consolidation or pneumothorax. Blunting of the costophrenic angles is present. Pulmonary vascularity: Pulmonary vascular congestion. Heart/mediastinum: Cardiomediastinal silhouette is enlarged and stable. Two lead cardiac conduction d evice overlying the left hemithorax with lead tips projecting over the right ventricle and right atri um. Musculoskeletal: No acute osseous pathology. Other findings: None IMPRESSION: Cardiomegaly, pulmonary vascular congestion and bilateral pleural effusions. Correlate with BNP for c ongestive heart failure.
--- NOTE | 2023-05-13 13:58 | P.PN ---
Subjective Progress Note Date: 05/13/23 Principal diagnosis: Acute hypoxic respiratory failure secondary to acute systolic congestive heart failure am seeing this patient in new consultation today 05/11/2023 in the ER, room 20, after she was sent in from [facility] with generalized weakness/fatigue and unable to participate in rehab. Patient is a 87-year-old female with past medical history significant for atrial fibrillation normally anticoagulated on Xarelto, coronary artery disease with previous PCI/stenting, permanent pacemaker, heart failure, hyperlipidemia, hypertension, hypothyroidism, among other things. She was just recently admitted earlier this month for acute GI bleed. She did undergo EGD at that time which showed a 5 mm antral ulcer with no active bleeding and a small hiatal hernia. Patient also reports worsening shortness breath over the last 2 weeks. Especially worse on exertion. She is anemic, hemoglobin is stable at 7.6 gm/dl. No further reports of bleeding or melanotic stools. No nausea or vomiting, abdominal pain, constipation, diarrhea. Denies any chest pain, palpitations, or worsening lower extremity edema. She does have chronic lower extremity swelling, however, not worse than normal. She takes Demadex outpatient. Denies fever. Does have an occasional intermittent nonprod uctive cough. Denies any history of pulmonary disease such as asthma or COPD. She is currently lying in bed, on 2 L per minute nasal cannula, in no acute distress. It appears that she has pulled out her IV. Chest x-ray on arrival demonstrated a moderate right pleural effusion with adjacent atelectasis and trace left pleural effusion. WBC on arrival shows a WBC count of 4.3, hemoglobin 7.6, hematocrit 24.9, platelets 135. BMP on arrival shows sodium of 141, potassium 4.1, chloride 107, serum bicarb 25, BUN 42, creatinine 1.71, glucose 119. She does have a component of chronic kidney disease. Initial urinalysis was likely contaminated, repeat no evidence of UTI. Patient denies any urinary complaints. Troponins mildly elevated at 0.067, 0.06, and 0.061 respectively. Not consistent with ACS. ECG shows an atrial paced rhythm at 60 bpm. No evidence of acute ischemia. Afebrile. Vital signs are stable. Patient was reevaluated today on 05/12/2023, feeling much per her today, breathing a lot easier, she is on 2 L nasal cannula and her O2 saturations 99% patient has been receiving diuretics, I reviewed the results of her ultrasound of the chest, and recommended no need for thoracentesis patient is not symptomatic, she is oxygenating well, and obvious she is improving clinically an d responding to diuretics hence I see no need for thoracentesis at this point. WBC count is 6 hemoglobin is 7.4, basic metabolic profile is normal BUN is 34 creatinine is down to 1.39 from 1.63 yesterday in spite of diuresis. Pro- calcitonin level is 0.08, Patient was reevaluated today on 05/13/2023, patient is doing well, I saw this patient for right-sided pleural effusion which was felt to be cardiogenic in nature/secondary to congestive heart failure unless proven otherwise. Did not feel that the patient is a candidate for thoracentesis, mostly because of the fluid is small and the fluid seems to be cardiogenic in nature echocardiogram on this patient showed good LV function, however the patient has moderate mitral regurgitation. Clinically the patient improved with diuretics, and now she is back on Demadex every other day. Patient denies any shortness of breath cough or wheezing, and she definitely does not want thoracentesis even if recommended. Follow-up chest x-ray today showed near complete resolution of her pleural effusion. I reviewed the chest x-ray myself, and again there is definite significant improvement and I disagree with the reading by radiology. He believes he Is 5.5 Hemoglobin Is 7.1 Basic Metabolic Profile Is Normal Creatinine Is 1.53, Baseline Creatinine Is 1.63 on Admission Objective - Vital Signs Vital signs: Vital Signs Temp 97.6 F 05/13/23 08:49 Pulse 78 05/13/23 11:54 Resp 16 05/13/23 11:54 BP 102/59 05/13/23 11:54 Pulse Ox 91 L 05/13/23 11:54 FiO2 Intake & Output 05/12/23 05/13/23 05/13/23 18:59 06:59 18:59 Intake Total 598 100 Output Total 1050 450 200 Balance -452 -350 -200 Intake: Oral 598 100 Output: Urine 1050 450 200 Other: Voiding Method Indwelling Catheter Indwelling Catheter Indwelling Catheter - Exam Physical Exam: Revealed 87-year-old female in no distress, on room air, O2 saturation between 91-95% Head: Atraumatic, normocephalic HEENT:[Neck is supple.] [No neck masses.] [No thyromegaly.] [No JVD.] Chest: [Clear bilaterally no crackles or rhonchi or wheezes Cardiac Exam: [Normal S1 and S2, no S3 gallop, no murmur.] Abdomen: [Soft, nontender, no megaly, no rebound, no guarding, normal bowel sounds.] Extremities: [No clubbing, no edema, no cyanosis.] Neurological Exam: [No focal neurologic deficit.] Alert and oriented 3 Psychiatric: Normal mood affect and normal mental status examination. Skin: No rashes - Labs CBC & Chem 7: 05/13/23 07:51 05/13/23 07:51 Labs: Abnormal Lab Results - Last 24 Hours (Table) 05/13/23 05/13/23 Range/Units 07:51 07:51 RBC 2.49 L (3.80-5.40) m/uL Hgb 7.1 L (11.4-16.0) gm/dL Hct 24.0 L (34.0-46.0) % MCHC 29.6 L (31.0-37.0) g/dL RDW 17.2 H (11.5-15.5) % Plt Count 137 L (150-450) k/uL Carbon Dioxide 37 H (22-30) mmol/L BUN 32 H (7-17) mg/dL Creatinine 1.53 H (0.52-1.04) mg/dL Microbiology - Last 24 Hours (Table) 05/11/23 10:12 Blood Culture - Preliminary Blood Assessment and Plan Assessment: Impression: Acute diastolic congestive heart failure with preserved LV function as noted on this echocardiogram this admission. Acute hypoxemic respiratory failure, likely secondary to right-sided pleural effusion Normocytic normochromic anemia, recent GI bleed status post EGD Generalized fatigue, secondary to above Elevated troponins, flat and not reflective of ACS Chronic kidney disease, stage IV History of permanent pacemaker, currently atrial paced History of paroxysmal atrial fibrillation, normally anticoagulated on Xarelto History of coronary artery disease with previous PCI/stenting History peripheral vascular disease History of nonischemic cardiomyopathy Hyperlipidemia Hypertension Hypothyroidism History of cervical cancer History of hepatitis C Obesity, with a BMI of 33.7 kg/m Former smoker Recommendation: Chest x-ray today is reassuring and significant improvement is noted in her congestive heart failure Continue Demadex Continue Xarelto Resume home meds Again definitely the patient does not need thoracentesis Will clear the patient for discharge if cleared by other consultants We will continue to follow Time with Patient: Less than 30
--- NOTE | 2023-05-13 15:03 | P.PN ---
Subjective Progress Note Date: 05/13/23 87 year old F with PMH atrial fibrillation on Xarelto, hypothyroidism, dyslipidemia, diastolic CHF, hypertension, CAD status post stent, arrhythmia status post pacemaker presenting with drowsiness. Recently admitted from 05/04-05/08 for concerns of GI bleed. EGD showed antral ulcer. Discharged to SNF. Family reports patient is too weak and lethargic to participate in rehab. Daughter reports patient appears for short of breath while on the phone. Daughter reports confusion but she was at times confused prior to her initial hospitalization. Patient reports dysuria. No bowel movement since her discharge. Denies chest pain. In the ED she underwent extensive evaluation. CBC Hg 7.6 Hct 24.9 Plt 135. CMP BUN 42 Cr 1.71 glu 119. TSH/FT4 within normal limits. Troponin 0.067. EKG atrial pacemaker. CXR moderate right pleural effusion. CT brain no acute pathology. 05/11 Patient was seen and examined. Complaining about the purewik and urinary discomfort. Tlow 94.5F rectally. BP low 86/51. CBC Hg 7.4 Plt 127. BMP bicarb 31, BUN 35, Cr 1.63, alk phos 132, alb 2.8. TSH 3.98 FT4 1.63. UA negative for LE or nitrite. BNP 2810. Troponins flat at 0.067, 0.06, 0.061. Chest US shows mild-moderate pleural effusion. 05/12 Patient was seen and examined. Much more comfortable after purewik was discontinued. T ranging from 94.5-97.5F since yesterday. Started on bear hugger yesterday. BP is improved SBP in the 100s since yesterday. Procal 0.08. Cortisol 12. CBC Hg 7.4 Hct 23.6 Plt 140. BMP K 3.3, BUN 34, Cr 1.39, glu 116. 05/13 Patient was seen and examined. She reports no complaints today. Tlow 97.4F over the past 24H. CXR done today shows improvement in her pleural effusion. There is no plans to do thoracentesis during this admission. CBC Hg 7.1 Hct 24 Plt 137. BMP bicarb 37, BUN 32, Cr 1.53. Pro broderick is negative. Blood culture negative so far. Echo shows EF 55%, mild-mod MR, mod TR. General: non toxic, no distress, appears at stated age Derm: warm, dry, pale Head: atraumatic, normocephalic, symmetric Eyes: EOMI, no lid lag, anicteric sclera Cardiovascular: S1S2 reg, no murmur Lungs: Decreased BS bilateral, no rhonchi, no rales , no accessory muscle use Abdominal: soft, suprapubic tenderness, no guarding, no appreciable organomegaly Ext: no gross muscle atrophy, no edema, no contractures Neuro: no focal neuro deficits Psych: Alert, oriented, appropriate affect Based on my assessment of this patient, this patient meets a moderate complexity level of care. Patient has an acute diagnosis of troponin elevation that poses a threat to life or bodily function. Acute hypoxic respiratory failure: Likely due to right pleural effusion. Supplemental O2 to maintain O2 saturation > 92%. Right pleural effusion: Most recent Echo shows preserved EF with diastolic dysfunction. Does not appears volume overloaded. Continue Torsemide. Pulmonology on board. Hypothermia: Rectal temp of 94.5F. Thyroid panel within normal limits. No obvious source of infection. UA negative. Pro-broderick and blood cultures negative. Cortisol level within normal limits. Hypotension: Discontinue Metoprolol. Telemetry monitoring. Q2H BP monitoring. Troponin elevation: Likely poor clearance from CKD. Troponin flat, ACS ruled out. Echocardiogram ordered. Cardiology consult. Normocytic anemia with recent GI bleed: Hg stable but borderline low. Hold Xarelto for now. Trend CBC. Stool for occult blood. May need C-scope. Generalized weakness: Likely related to all of the above. PT and OT consult. Fall precautions. Chronic conditions: Atrial fibrillation, hypothyroidism, dyslipidemia, hypertension, CAD, diastolic CHF, chronic kidney disease Plans to monitor the patient overnight due to borderline low Hg. She still appears tired and lethargic. She may need blood transfusion. Check iron studies. Anticipate discharge home tomorrow. CODE STATUS: NO CODE DVT Prophylaxis: SCDs GI Prophylaxis: Protonix IV Designated medical POA if patient is not able to make medical decisions for themselves: Daughter who is the guardian. I have reviewed the following golf tournament consultant notes: Pulm note. I have reviewed the results of the following tests: CBC, BMP, procal, BCx. I have ordered the following tests: Pending: stool occult blood, BCx final. I have discussed the care of this patient with the following independent historian: I have independently interpreted the following test below: I have discussed the management of this patient with the following physician: Objective - Vital Signs Vital signs: Vital Signs Temp 97.6 F 05/13/23 08:49 Pulse 78 05/13/23 11:54 Resp 16 05/13/23 11:54 BP 102/59 05/13/23 11:54 Pulse Ox 91 L 05/13/23 11:54 FiO2 Intake & Output 05/12/23 05/13/23 05/13/23 18:59 06:59 18:59 Intake Total 598 100 Output Total 1050 450 200 Balance -452 -350 -200 Intake: Oral 598 100 Output: Urine 1050 450 200 Other: Voiding Method Indwelling Catheter Indwelling Catheter Indwelling Catheter - Labs CBC & Chem 7: 05/13/23 07:51 05/13/23 07:51 Labs: Abnormal Lab Results - Last 24 Hours (Table) 05/13/23 05/13/23 Range/Units 07:51 07:51 RBC 2.49 L (3.80-5.40) m/uL Hgb 7.1 L (11.4-16.0) gm/dL Hct 24.0 L (34.0-46.0) % MCHC 29.6 L (31.0-37.0) g/dL RDW 17.2 H (11.5-15.5) % Plt Count 137 L (150-450) k/uL Carbon Dioxide 37 H (22-30) mmol/L BUN 32 H (7-17) mg/dL Creatinine 1.53 H (0.52-1.04) mg/dL Microbiology - Last 24 Hours (Table) 05/11/23 10:12 Blood Culture - Preliminary Blood
[2023-05-13 15:48] LABS: % Iron Saturation 2.58 (12.00-45.00); Ferritin 33.9 ng/mL (10.0-291.0)
[2023-05-13] MEDS: RIVAROXABAN 15 MG TAB PO SCH (18:14)
[2023-05-13] MEDS: ATORVASTATIN 40 MG TAB PO SCH (20:25)
[2023-05-14] MEDS: LEVOTHYROXINE 50 MCG TAB PO SCH (05:22)
[2023-05-14 07:32] LABS: Anisocytosis Slight; HCT 24.4 % (34.0-46.0); HGB 7.2 gm/dL (11.4-16.0); Hypochromasia Marked; MCH 28.4 pg (25.0-35.0); MCHC 29.5 g/dL (31.0-37.0); MCV 96.3 fL (80.0-100.0); Macrocytosis Slight; Mean Platelet Volume 9.6; Platelet Count 130 k/uL (150-450); Poikilocytosis Moderate; RBC 2.53 m/uL (3.80-5.40); WBC 5.7 k/uL (3.8-10.6)
[2023-05-14 07:59] LABS: African American GFR (CKD) 46 (>60 ml/min/1.73 sqM); Anion Gap 6 mmol/L; Blood Urea Nitrogen 29 mg/dL (7-17); Calcium 8.5 mg/dL (8.4-10.2); Carbon Dioxide 38 mmol/L (22-30); Chloride 95 mmol/L (98-107); Glucose 81 mg/dL (74-99); Non-African American GFR(CKD) 40 (>60 ml/min/1.73 sqM); Potassium 3.2 mmol/L (3.5-5.1); Sodium 139 mmol/L (137-145)
[2023-05-14] MEDS: allopurinoL 100 MG TAB PO SCH (08:21)
[2023-05-14] MEDS: TORSEMIDE 20 MG TAB PO SCH (08:22)
[2023-05-14] MEDS: HYDROcodone/APAP 5-325MG 1 EACH TAB PO PRN (08:23)
[2023-05-14] MEDS ORDERED: POTASSIUM CHLORIDE ER 20 MEQ TAB.ER PO STA (09:35)
[2023-05-14] MEDS ORDERED: SODIUM FERRIC GLUCONAT-SUCROSE 125 MG in SODIUM CHLORIDE 0.9% 100 ML IVPB ONE (09:35)
[2023-05-14 12:45] VITALS: RESP 17; TEMP 97.6
--- NOTE | 2023-05-14 13:18 | P.DS ---
Providers Date of admission: 05/11/23 12:59 Expected date of discharge: 05/14/23 Attending physician: Shelia López DO Consults: 05/10/23 18:37 Consult Physician Stat Consulting Provider: Adalberto Sandoval Reason/Comments: pleural effusion Do you want consulting provider notified?: Yes Primary care physician: Parminder Powers MD Hospital Course: 87 year old F with PMH atrial fibrillation on Xarelto, hypothyroidism, dyslipidemia, diastolic CHF, hypertension, CAD status post stent, arrhythmia status post pacemaker presenting with drowsiness. Recently admitted from 05/04-05/08 for concerns of GI bleed. EGD showed antral ulcer. Discharged to SNF. Family reports patient is too weak and lethargic to participate in rehab. Daughter reports patient appears for short of breath while on the phone. Daughter reports confusion but she was at times confused prior to her initial hospitalization. Patient reports dysuria. No bowel movement since her discharge. Denies chest pain. In the ED she underwent extensive evaluation. CBC Hg 7.6 Hct 24.9 Plt 135. CMP BUN 42 Cr 1.71 glu 119. TSH/FT4 within normal limits. Troponin 0.067. EKG atrial pacemaker. CXR moderate right pleural effusion. CT brain no acute pathology. 05/11 Tlow 94.5F rectally. BP low 86/51. CBC Hg 7.4 Plt 127. BMP bicarb 31, BUN 35, Cr 1.63, alk phos 132, alb 2.8. TSH 3.98 FT4 1.63. UA negative for LE or n itrite. BNP 2810. Troponins flat at 0.067, 0.06, 0.061. Chest US shows mild- moderate pleural effusion. 05/12 T ranging from 94.5-97.5F since yesterday. Started on bear hugger yesterday. BP is improved SBP in the 100s since yesterday. Procal 0.08. Cortisol 12. CBC Hg 7.4 Hct 23.6 Plt 140. 05/13 Tlow 97.4F over the past 24H. CXR done today shows improvement in her pleural effusion. There is no plans to do thoracentesis during this admission. CBC Hg 7.1 Hct 24 Plt 137. Pro broderick is negative. Blood culture negative so far. Echo shows EF 55%, mild-mod MR, mod TR. 05/14 Patient was seen and examined. Tlow 97.5F. Her hypothermia is likely related to decreased homeostatic capacity from ageing. No signs of active infection, no signs of thyroid or addrenal insufficiency. Her Hg is borderline low. Her iron studies shows low iron of 12. She will be given an iron infusion today and started on PO supplements. She will need regular monitoring of her hemoglobin after discharge. Plans to repeat CBC within 3 days. She was previously on Metoprolol 100 mg PO BID which will be decreased to 12.5 mg PO QD. She is advised to stay in warm environments with adequate clothing. Plans for discharge to SNF today. Pertient studies as above. General: non toxic, no distress, appears at stated age Derm: warm, dry, pale Head: atraumatic, normocephalic, symmetric Eyes: EOMI, no lid lag, anicteric sclera Cardiovascular: S1S2 reg, no murmur Lungs: Decreased BS bilateral, no rhonchi, no rales , no accessory muscle use Abdominal: soft, suprapubic tenderness, no guarding, no appreciable organomegaly Ext: no gross muscle atrophy, no edema, no contractures Neuro: no focal neuro deficits Psych: Alert, oriented, appropriate affect Discharge Diagnosis: Acute hypoxic respiratory failure Right pleural effusion Hypothermia Hypotension Troponin elevation Normocytic anemia with recent GI bleed Generalized weakness Chronic conditions: Atrial fibrillation, hypothyroidism, dyslipidemia, hypertension, CAD, diastolic CHF, chronic kidney disease This complex discharge took 35 minutes to complete. Patient Condition at Discharge: Stable Plan - Discharge Summary Discharge Rx Participant: No New Discharge Prescriptions: New Ferrous Sulfate [Iron (65 MG Elemental)] 325 mg PO BID-W/MEALS tab Docusate [Colace] 100 mg PO BID PRN cap PRN Reason: Constipation Metoprolol Succinate (ER) [Toprol XL] 12.5 mg PO DAILY tab Continue Levothyroxine Sodium [Synthroid] 50 mcg PO DAILY@0600 Potassium Chloride ER [K-Dur 20] 20 meq PO BID Torsemide [Demadex] 20 mg PO SUTUTHSA Rivaroxaban [Xarelto] 15 mg PO DAILY@1800 Torsemide [Demadex] 40 mg PO MOWEFR SILVER sulfADIAZINE Cream [Silvadene 1% Cream] 1 applic TOPICAL BID PRN PRN Reason: LEGS allopurinoL [Zyloprim] 100 mg PO DAILY Pantoprazole [Protonix] 40 mg PO BID #10 tab Acetaminophen [Tylenol] 650 mg PO BID PRN PRN Reason: Pain traMADol HCL 50 mg PO Q6H PRN PRN Reason: Pain Atorvastatin [Lipitor] 40 mg PO HS Discontinued Metoprolol Succinate (ER) [Toprol XL] 100 mg PO BID Discharge Medication List Levothyroxine Sodium [Synthroid] 50 mcg PO DAILY@0600 11/07/14 [History] Potassium Chloride ER [K-Dur 20] 20 meq PO BID 03/06/19 [History] Rivaroxaban [Xarelto] 15 mg PO DAILY@1800 07/23/21 [History] SILVER sulfADIAZINE Cream [Silvadene 1% Cream] 1 applic TOPICAL BID PRN 05/04/23 [History] Torsemide [Demadex] 20 mg PO SUTUTHSA 05/04/23 [History] Torsemide [Demadex] 40 mg PO MOWEFR 05/04/23 [History] allopurinoL [Zyloprim] 100 mg PO DAILY 05/04/23 [History] Pantoprazole [Protonix] 40 mg PO BID #10 tab 05/08/23 [Rx] Acetaminophen [Tylenol] 650 mg PO BID PRN 05/10/23 [History] Atorvastatin [Lipitor] 40 mg PO HS 05/10/23 [History] traMADol HCL 50 mg PO Q6H PRN 05/10/23 [History] Docusate [Colace] 100 mg PO BID PRN cap 05/14/23 [Rx] Ferrous Sulfate [Iron (65 MG Elemental)] 325 mg PO BID-W/MEALS tab 05/14/23 [Rx] Metoprolol Succinate (ER) [Toprol XL] 12.5 mg PO DAILY tab 05/14/23 [Rx] Follow up Appointment(s)/Referral(s): Parminder Powers MD [Primary Care Provider] - 1-2 days Ambulatory/Diagnostic Orders: Basic Metabolic Panel [LAB.AMB] Time Frame: 3 Days, Location: None Selected Complete Blood Count w/diff [LAB.AMB] Time Frame: 3 Days, Location: None Selected Activity/Diet/Wound Care/Special Instructions: Diet: Low salt. Fluid restriction 1.5L. Repeat CBC and BMP within 3 days, follow up results with PCP. Monitor for borderline low hemoglobin. May need blood transfusion in the future. Discharge Disposition: HOME SELF-CARE
--- NOTE | 2023-05-14 14:34 | P.PN ---
Subjective Progress Note Date: 05/14/23 am seeing this patient in new consultation today 05/11/2023 in the ER, room 20, after she was sent in from [facility] with generalized weakness/fatigue and unable to participate in rehab. Patient is a 87-year-old female with past medical history significant for atrial fibrillation normally anticoagulated on Xarelto, coronary artery disease with previous PCI/stenting, permanent pacemaker, heart failure, hyperlipidemia, hypertension, hypothyroidism, among other things. She was just recently admitted earlier this month for acute GI bleed. She did undergo EGD at that time which showed a 5 mm antral ulcer with no active bleeding and a small hiatal hernia. Patient also reports worsening shortness breath over the last 2 weeks. Especially worse on exertion. She is anemic, hemoglobin is stable at 7.6 gm/dl. No further reports of bleeding or melanotic stools. No nausea or vomiting, abdominal pain, constipation, diarrhea. Denies any chest pain, palpitations, or worsening lower extremity edema. She does have chronic lower extremity swelling, however, not worse than normal. She takes Demadex outpatient. Denies fever. Does have an occasional intermittent nonproductive cough. Denies any history of pulmonary disease such as asthma or COPD. She is currently lying in bed, on 2 L per minute nasal cannula, in no acute distress. It appears that she has pulled out her IV. Chest x-ray on arrival demonstrated a moderate right pleural effusion with adjacent atelectasis and trace left pleural effusion. WBC on arrival shows a WBC count of 4.3, hemoglobin 7.6, hematocrit 24.9, platelets 135. BMP on arrival shows sodium of 141, potassium 4.1, chloride 107, serum bicarb 25, BUN 42, creatinine 1.71, glucose 119. She does have a component of chronic kidney disease. Initial urinalysis was likely contaminated, repeat no evidence of UTI. Patient denies any urinary complaints. Troponins mildly elevated at 0.067, 0.06, and 0.061 respectively. Not consistent with ACS. ECG shows an atrial paced rhythm at 60 bpm. No evidence of acute ischemia. Afebrile. Vital signs are stable. Patient was reevaluated today on 05/12/2023, feeling much per her today, breathing a lot easier, she is on 2 L nasal cannula and her O2 saturations 99% patient has been receiving diuretics, I reviewed the results of her ultrasound of the chest, and recommended no need for thoracentesis patient is not symptomatic, she is oxygenating well, and obvious she is improving clinically and responding to diuretics hence I see no need for thoracentesis at this point. WBC count is 6 hemoglobin is 7.4, basic metabolic profile is normal BUN is 34 creatinine is down to 1.39 from 1.63 yesterday in spite of diuresis. Pro-broderick citonin level is 0.08, Patient was reevaluated today on 05/13/2023, patient is doing well, I saw this patient for right-sided pleural effusion which was felt to be cardiogenic in nature/secondary to congestive heart failure unless proven otherwise. Did not feel that the patient is a candidate for thoracentesis, mostly because of the fluid is small and the fluid seems to be cardiogenic in nature echocardiogram on this patient showed good LV function, however the patient has moderate mitral regurgitation. Clinically the patient improved with diuretics, and now she is back on Demadex every other day. Patient denies any shortness of breath cough or wheezing, and she definitely does not want thoracentesis even if recommended. Follow-up chest x-ray today showed near complete resolution of her pleural effusion. I reviewed the chest x-ray myself, and again there is definite significant improvement and I disagree with the reading by radiology. He believes he Is 5.5 Hemoglobin Is 7.1 Basic Metabolic Profile Is Normal Creatinine Is 1.53, Baseline Creatinine Is 1.63 on Admission The patient is seen today 05/14/2023 in follow-up on the selective care unit. She is currently sitting up in bed. Awake and alert in no acute distress. Maintaining O2 saturations in the mid to upper 90s on 1 L/m per nasal cannula. Blood cultures reveal no growth. White count 5.7. Hemoglobin 7.2. Platelets 1:30. Sodium 139. Potassium 3.2. Bicarb 30. BUN 29. Creatinine 1.23. She is continued on oral diuretics. Currently in a -2 L balance. Anticoagulated with Xarelto. Objective - Vital Signs Vital signs: Vital Signs Temp 97.6 F 05/14/23 11:00 Pulse 99 05/14/23 11:00 Resp 17 05/14/23 11:00 BP 108/58 05/14/23 11:00 Pulse Ox 97 05/14/23 11:00 FiO2 Intake & Output 12/14/23 12/15/23 12/15/23 18:59 06:59 18:59 Output Total 200 1875 200 Balance -200 -1875 -200 Output: Urine 200 1875 200 Other: Voiding Method Indwelling Catheter Indwelling Catheter Indwelling Catheter - Exam GENERAL EXAM: Alert, pleasant 87-year-old female, on 1 L nasal cannula, comfortable in no apparent distress. HEAD: Normocephalic. EYES: Normal reaction of pupils, equal size. NOSE: Clear with pink turbinates. THROAT: No erythema or exudates. NECK: No masses, no JVD. CHEST: No chest wall deformity. LUNGS: Equal air entry with faint bibasilar crackles. CVS: S1 and S2 normal with no audible murmur, regular rhythm. ABDOMEN: No hepatosplenomegaly, normal bowel sounds, no guarding or rigidity. SPINE: No scoliosis or deformity SKIN: No rashes CENTRAL NERVOUS SYSTEM: No focal deficits, tone is normal in all 4 extremities. EXTREMITIES: There is no peripheral edema. No clubbing, no cyanosis. Peripheral pulses are intact. - Labs CBC & Chem 7: 05/14/23 07:08 05/14/23 07:08 Labs: Abnormal Lab Results - Last 24 Hours (Table) 05/13/23 05/14/23 05/14/23 Range/Units 07:51 07:08 07:08 RBC 2.53 L (3.80-5.40) m/uL Hgb 7.2 L (11.4-16.0) gm/dL Hct 24.4 L (34.0-46.0) % MCHC 29.5 L (31.0-37.0) g/dL RDW 17.0 H (11.5-15.5) % Plt Count 130 L (150-450) k/uL Potassium 3.2 L (3.5-5.1) mmol/L Chloride 95 L (98-107) mmol/L Carbon Dioxide 38 H (22-30) mmol/L BUN 29 H (7-17) mg/dL Creatinine 1.23 H (0.52-1.04) mg/dL Iron 12 L (50-170) UG/DL TIBC 466 H (228-460) UG/DL % Saturation 2.58 L (12.00-45.00) Microbiology - Last 24 Hours (Table) 05/11/23 10:12 Blood Culture - Preliminary Blood Assessment and Plan Assessment: Acute hypoxemic respiratory failure, likely secondary to right-sided pleural effusion Normocytic normochromic anemia, recent GI bleed status post EGD Generalized fatigue, secondary to above Elevated troponins, flat and not reflective of ACS Chronic kidney disease, stage IV History of permanent pacemaker, currently atrial paced History of paroxysmal atrial fibrillation, normally anticoagulated on Xarelto History of coronary artery disease with previous PCI/stenting History peripheral vascular disease History of nonischemic cardiomyopathy Hyperlipidemia Hypertension Hypothyroidism History of cervical cancer History of hepatitis C Obesity, with a BMI of 33.7 kg/m Former smoker Plan: The patient was seen and evaluated Medications and labs reviewed A stable and on 1 L of oxygen Continue diuretics Cleared for discharge to ECF from the pulmonary standpoint I have personally seen and examined the patient, performed the documentation and the assessment and plan as written. Number of minutes spent on the visit: 10.
[2023-05-14 15:38] VITALS: BP 145/63; PULSE 80
[2023-05-14] MEDS: RIVAROXABAN 15 MG TAB PO SCH (16:48)
[2023-05-14] MEDS ORDERED: FERROUS SULFATE 325 MG TAB PO SCH (17:30)
[2023-05-14] MEDS ORDERED: METOPROLOL TARTRATE 12.5 MG TAB PO SCH (21:00)
[2023-05-15] MEDS ORDERED: METOPROLOL SUCCINATE (ER) 25 MG TAB.ER.24H PO SCH (09:00)
--- NOTE | 2023-05-18 12:59 | CDI ---
Documentation Clarification Form Date: 05/18/2023 12:43:45 PM From: Marci Jorge RN, CCDS Email: [email or web address] Admit Date: 05/11/2023 12:59:00 PM Patient Name: Rohini Hansen Visit Number: [id number] Discharge Date: 05/14/2023 05:00:00 PM ATTENTION: The Clinical Documentation Specialists (CDI) and [facility] Coding Staff appreciate your assistance in clarifying documentation. Please respond to the clarification below the line at the bottom and electronically sign. The CDI & [facility] Coding staff will review the response and follow-up if needed. Please note: Queries are made part of the Legal Health Record. If you have any questions, please contact the author of this message via ITS. Dr. Alfred Salgado Unspecified normocytic anemia is documented in the progress notes. Additional specificity regarding the type of anemia is requested. History/Risk Factors: sent in from [facility] with generalized weakness/fatigue and unable to participate in rehab. History of atrial fibrillation normally anticoagulated on Xarelto, CAD with previous PCI/stenting, permanent pacemaker, heart failure, hyperlipidemia, hypertension and hypothyroidism. She was just recently admitted earlier this month for acute GI bleed. EGD showed a 5 mm antral ulcer with no active bleeding and a small hiatal hernia. Patient also reports worsening shortness breath over the last 2 weeks. She is anemic, hemoglobin is stable at 7.6 gm/dl. Clinical indicators: H&P: "Normocytic anemia with recent GI bleed: Hg stable but borderline low." 05/14 Discharge summary: "Her iron studies shows low iron of 12.She will be given an iron infusion today and started on PO supplements." 05/10-05/14 Hemoglobin: 7.6-7.4-7.1-7.2 05/10-05/14 Hematocrit: 24.9-24.0-23.6 05/13 Iron level: 12 Treatment: IV Ferric gluconate 125mg x1 on 05/14; Ferrous sulfate 325mg po BID with meals 05/14 and at discharge Please clarify the type of anemia: [ x ] Chronic blood loss anemia [x ] Iron deficiency anemia [ ] Unable to determine [ ] Other, please specify MTDD
== END 2023-05-14 17:00 | DRG 811 ==
LOC: EC 13:31 → 3SCARD 16:40 → OBSVTOIN 05-11 12:59 → 3SCARD 05-11 13:30
PROVIDERS: ADMIT Internal Medicine; ATTEND Internal Medicine
PROC: 3E0F7SF Introduction of Other Gas into Respiratory Tract, Via Natural or Artificial Opening (ICD-10-PCS; principal; 2023-05-11)
DX: D50.0 Iron deficiency anemia secondary to blood loss (chronic) (principal); J96.01 Acute respiratory failure with hypoxia; K25.4 Chronic or unspecified gastric ulcer with hemorrhage; I13.0 Hypertensive heart and chronic kidney disease with heart failure and stage 1 through stage 4 chronic kidney disease, or unspecified chronic kidney disease; N18.4 Chronic kidney disease, stage 4 (severe); I50.32 Chronic diastolic (congestive) heart failure; I42.8 Other cardiomyopathies; E11.22 Type 2 diabetes mellitus with diabetic chronic kidney disease; E11.51 Type 2 diabetes mellitus with diabetic peripheral angiopathy without gangrene; I48.0 Paroxysmal atrial fibrillation; Z79.01 Long term (current) use of anticoagulants; Z95.0 Presence of cardiac pacemaker; I49.5 Sick sinus syndrome; Z68.33 Body mass index [BMI] 33.0-33.9, adult; E66.9 Obesity, unspecified; B19.20 Unspecified viral hepatitis C without hepatic coma; I25.10 Atherosclerotic heart disease of native coronary artery without angina pectoris; Z95.5 Presence of coronary angioplasty implant and graft; E78.5 Hyperlipidemia, unspecified; I08.1 Rheumatic disorders of both mitral and tricuspid valves; I27.20 Pulmonary hypertension, unspecified; E03.9 Hypothyroidism, unspecified; Z87.891 Personal history of nicotine dependence; I25.2 Old myocardial infarction; Z79.899 Other long term (current) drug therapy; Z79.890 Hormone replacement therapy; Z90.710 Acquired absence of both cervix and uterus; Z85.41 Personal history of malignant neoplasm of cervix uteri; Z96.642 Presence of left artificial hip joint; Z90.49 Acquired absence of other specified parts of digestive tract; Z88.8 Allergy status to other drugs, medicaments and biological substances
CPT/HCPCS: 36415; 51702; 70450; 71045; 71046; 76604; 80048; 80053; 81001; 82533; 82728; 83540; 83550; 83605; 83735; 83880; 84145; 84439; 84443; 84481; 84484; 85025; 85027; 85610; 85730; 87040; 93005; 93306; 94760; 96360; 96361; 99285

== ENCOUNTER 2023-07-20 08:32 | Day surgery (SDC) | payer MEDICARE, MEDICAID ==
[2023-07-15 14:32] VITALS: BMI 32.9
[2023-07-20] MEDS: SODIUM CHLORIDE 0.9% 1,000 ML IV SCH (09:30)
[2023-07-20] MEDS: VANCOMYCIN 1,000 MG VIAL IVPB ONE (10:45)
[2023-07-20] MEDS ORDERED: fentaNYL (PF) 50 MCG/ML 2 ML AMP ONE (10:52)
[2023-07-20] MEDS ORDERED: PHENYLEPHRINE 10 MG/ML VIAL ONE (10:52)
[2023-07-20] MEDS ORDERED: MIDAZOLAM 2 MG/2 ML VIAL ONE (10:52)
[2023-07-20] MEDS ORDERED: LIDOCAINE 1% INJ 10MG/ML (20 ML MDV) ONE (11:12)
[2023-07-20] MEDS: ROPIVACAINE 5 MG/ML 30 ML VIAL MISCELLANE ONE (11:43)
[2023-07-20] MEDS: LIDOCAINE 1% INJ 10MG/ML (20 ML MDV) SQ ONE (11:43)
[2023-07-20] MEDS: ceFAZolin 1 GM in SODIUM CHLORIDE 0.9% IRRIG BTL 250 ML IRRIGATION PRN (12:00)
--- NOTE | 2023-07-20 12:38 | P.EPPROC ---
- EP Procedure Note Electrophysiology Procedure Note: Diagnosis Symptomatic bradycardia status post dual-chamber pacemaker Dual-chamber pacemaker generator at [facility], normal battery depletion Procedure Dual-chamber pacemaker generator change Details Patient was brought to the EP lab in a fasting state. Written informed consent was obtained prior to the procedure. Conscious sedation provided. IV antibiotics administered. Local anesthesia administered. A 4 cm incision made in the pectoral area. Subfascial pocket made. Partial capsulectomy performed Atrial lead chronically positioned the right atrial appendage. P waves 3.1 mV, pacing impedance 460 ohms RV lead chronic position in the RV apex. Pacing threshold 1.25 V at point 5 ms, R waves 8 mV impedance impedance 490 ohms Device project coordinator rn: [employer] model #[id number] pacemaker Dual-chamber pacemaker device connected to the leads and placed in the subfascial pocket Antibiotic pouch placed Patient tolerated the procedure well without acute complications Pacemaker programming DDDR 60-130, MVP on
[2023-07-20] MEDS ORDERED: ACETAMINOPHEN TAB 325 MG TAB PO PRN (12:39)
[2023-07-20] MEDS: VANCOMYCIN 1,250 MG in SODIUM CHLORIDE 0.9% 250 ML IVPB ONE (12:54)
[2023-07-20] MEDS: ACETAMINOPHEN IV (For NPO) 1,000 MG in EMPTY BAG 1 BAG IVPB ONE (13:02)
[2023-07-20 15:53] LABS: Anisocytosis Slight; HCT 34.2 % (34.0-46.0); HGB 10.2 gm/dL (11.4-16.0); Hypochromasia Marked; MCH 28.8 pg (25.0-35.0); MCHC 29.8 g/dL (31.0-37.0); MCV 96.7 fL (80.0-100.0); Macrocytosis Slight; Mean Platelet Volume 8.6; Platelet Count 186 k/uL (150-450); RBC 3.54 m/uL (3.80-5.40); RDW 17.9 % (11.5-15.5); WBC 4.9 k/uL (3.8-10.6)
[2023-07-20 16:16] LABS: African American GFR (CKD) 35 (>60 ml/min/1.73 sqM); Anion Gap 3 mmol/L; Blood Urea Nitrogen 27 mg/dL (7-17); Carbon Dioxide 31 mmol/L (22-30); Chloride 104 mmol/L (98-107); Glucose 160 mg/dL (74-99); Non-African American GFR(CKD) 31 (>60 ml/min/1.73 sqM); Potassium 3.2 mmol/L (3.5-5.1); Sodium 138 mmol/L (137-145)
[2023-07-20] MEDS: LACTATED RINGERS 1,000 ML IV SCH (17:32)
[2023-07-20] MEDS: POTASSIUM CHLORIDE ER 20 MEQ TAB.ER PO SCH (20:08)
[2023-07-20] MEDS: ATORVASTATIN 40 MG TAB PO SCH (20:08)
[2023-07-20] MEDS: METOPROLOL SUCCINATE (ER) 25 MG TAB.ER.24H PO SCH (22:35)
[2023-07-21 02:30] VITALS: RESP 16
[2023-07-21] MEDS: PANTOPRAZOLE 40 MG TABLET PO SCH (05:57)
[2023-07-21] MEDS: LEVOTHYROXINE 50 MCG TAB PO SCH (05:57)
[2023-07-21] MEDS: FERROUS SULFATE 325 MG TAB PO SCH (08:34)
[2023-07-21] MEDS: allopurinoL 100 MG TAB PO SCH (08:34)
[2023-07-21] MEDS: AMIODARONE 200 MG TAB PO SCH (08:34)
[2023-07-21] MEDS: TORSEMIDE 20 MG TAB PO SCH (08:34)
[2023-07-21 08:55] VITALS: BP 119/68; PULSE 61; TEMP 97.5
--- NOTE | 2023-07-21 09:22 | P.DS ---
Providers Date of admission: 07/20/23 Attending physician: Emir Teague Primary care physician: Stated None Hospital Course: The patient is an 87-year-old female who is currently admitted after undergoing his maker generator change. Patient tolerated procedure well with no complications. Patient was interviewed and examined resting comfortably in bed. She states she does have some mild discomfort at her device site. No significant drainage on surgical dressing. GENERAL: Well-appearing, well-nourished and in no acute distress. NECK: Supple without JVD or thyromegaly. LUNGS: Breath sounds clear to auscultation bilaterally. Respiration equal and unlabored. No wheezes, rales or rhonchi. HEART: Regular rate and rhythm without murmurs, rubs or gallops. S1 and S2 heard. EXTREMITIES: Normal range of motion, no edema. No clubbing or cyanosis. Peripheral pulses intact and strong. IMPRESSION: Symptomatic bradycardia, status post permanent pacemaker Status post pacemaker generator change PLAN: Continue home medication regimen Patient may be discharged for outpatient follow-up I am dictating on behalf of Dr Emir Teague's history/physical and assessment/plan. Plan - Discharge Summary Discharge Rx Participant: No New Discharge Prescriptions: Continue Levothyroxine Sodium [Synthroid] 50 mcg PO QAM Potassium Chloride ER [K-Dur 20] 20 meq PO BID Pantoprazole [Protonix] 40 mg PO QAM Torsemide (Unknown Dose) 2 tab PO QAM Ferrous Sulfate [Iron (65 MG Elemental)] 325 mg PO QAM Amiodarone [Cordarone] 200 mg PO QAM Rivaroxaban [Xarelto] 15 mg PO QAM allopurinoL [Zyloprim] 100 mg PO QAM Atorvastatin [Lipitor] 40 mg PO HS Metoprolol Succinate (ER) [Toprol XL] 25 mg PO BID Discharge Medication List Levothyroxine Sodium [Synthroid] 50 mcg PO QAM 11/07/14 [History] Potassium Chloride ER [K-Dur 20] 20 meq PO BID 03/06/19 [History] Rivaroxaban [Xarelto] 15 mg PO QAM 07/23/21 [History] allopurinoL [Zyloprim] 100 mg PO QAM 05/04/23 [History] Atorvastatin [Lipitor] 40 mg PO HS 05/10/23 [History] Amiodarone [Cordarone] 200 mg PO QAM 07/16/23 [History] Ferrous Sulfate [Iron (65 MG Elemental)] 325 mg PO QAM 07/16/23 [History] Metoprolol Succinate (ER) [Toprol XL] 25 mg PO BID 07/16/23 [History] Pantoprazole [Protonix] 40 mg PO QAM 07/16/23 [History] Torsemide (Unknown Dose) 2 tab PO QAM 07/16/23 [History] Follow up Appointment(s)/Referral(s): Emir Teague MD [STAFF PHYSICIAN] - 1 Week (APPOINTMENT MADE ON July @ 4:00PM FOR YOUR DEVICE CHECK Discharge tomorrow by 11 AM Patient should be downstairs in the waiting area at 11 AM There will be a bus schedule to pick her up from the waiting area) Activity/Diet/Wound Care/Special Instructions: PATIENT EDUCATION MATERIAL Instructions following a heart rhythm device implant. 1. Keep dressing DRY for 7 DAYS. You may cover the area with Saran or Cling Wrap, prior to a shower. 2. The dressing will be removed in the Device Clinic at [facility]. Absorbable sutures were used to close the wound. 3. Avoid raising the left arm above the shoulder level. 4 week restriction 4. Avoid arm movements, like backscratching, rubbing the head, or pulling on a cord. 4 weeks restriction 5. Gentle range of motion movements of the shoulder, closest to the incision should be performed to avoid a frozen shoulder. (Pendulum exercises of the shoulder) 6. The opposite arm may be used freely. 7. Avoid driving for 7 days. 8. Avoid activities such as golfing, swimming, weed whacking, lifting more than 10 pounds weight, bowling, gymnastics and weight training/lifting. (6 weeks restriction) 9. Activities such as wood chopping with an axe, pull-ups in the gymnasium, power lifting, arc-welding, being close to home induction cooktops will always be a problem. 10. Arm sling is only a reminder not to raise the arm above the head. You do not need to keep the arm completely immobilized. Your free to move the arm and use it and for normal activities. In case of any problems, please call [facility] [place], @ [phone], Attention: Device Clinic Device clinic follow-up in 7 days Follow-up with primary rotary shear operator in 2-3 months Discharge Disposition: HOME SELF-CARE
== END 2023-07-21 11:15 | disposition home or self-care (01) ==
LOC: CATHEP 08:32 → 6NMEDSUR 12:10 → CATHEP 07-21 11:15
PROVIDERS: ATTEND Internal Medicine Clinical Cardiac Electrophysiology
DX: Z95.0 Presence of cardiac pacemaker (principal); I25.10 Atherosclerotic heart disease of native coronary artery without angina pectoris; I48.0 Paroxysmal atrial fibrillation; I49.5 Sick sinus syndrome; I48.3 Typical atrial flutter; I35.9 Nonrheumatic aortic valve disorder, unspecified; I13.0 Hypertensive heart and chronic kidney disease with heart failure and stage 1 through stage 4 chronic kidney disease, or unspecified chronic kidney disease; N18.9 Chronic kidney disease, unspecified; Z79.01 Long term (current) use of anticoagulants; Z79.899 Other long term (current) drug therapy
CPT/HCPCS: 33228; 80048; 85027; C1785; J2250; J3370; J0690; J2001; J3010; J2795; J0131; J2371

== ENCOUNTER → 2023-07-21 | Outpatient (CLI) | payer MEDICARE, MEDICAID ==
[2023-07-21 16:29] LABS: % Iron Saturation 18.37 (12.00-45.00)
[2023-07-21 16:43] LABS: Basophils # (A) 0.02 X 10*3/uL (0.00-0.10); Basophils % (A) 0.4 %; Eosinophils # (A) 0.16 X 10*3/uL (0.04-0.35); Eosinophils % (A) 2.9 %; HCT 37.9 % (37.2-46.3); Lymphocytes # (A) 1.27 X 10*3/uL (0.90-5.00); MCH 28.7 pg (27.0-32.0); Mean Platelet Volume 10.9 FL (9.5-12.2); Monocytes # (A) 0.42 X 10*3/uL (0.20-1.00); Monocytes % (A) 7.6 %; NRBC Per 100 WBC 0 X 10*3/uL (0.00-0.01); Neutrophils # (A) 3.62 X 10*3/uL (1.80-7.70); Neutrophils % (A) 65.7 %; Platelet Count 200 X 10*3/uL (140-440); RBC 3.83 X 10*6/uL (4.10-5.20); RDW 18.4 % (11.5-14.5); WBC 5.51 X 10*3/uL (4.50-10.00)
== END | disposition home or self-care (01) ==
LOC: LABWHC1 11:22
PROVIDERS: ATTEND Internal Medicine Gastroenterology
DX: D62 Acute posthemorrhagic anemia (principal)
CPT/HCPCS: 36415; 82728; 83540; 83550; 85025

== ENCOUNTER 2023-07-31 09:03 | Inpatient (IN) | payer MEDICARE, MEDICAID ==
--- NOTE | 2023-07-31 09:22 | ED ---
General Adult HPI - General Chief complaint: Skin/Abscess/Foreign Body Stated complaint: cellulitis Time Seen by Provider: 07/31/23 09:06 Source: patient, EMS, RN notes reviewed, old records reviewed Mode of arrival: EMS Limitations: no limitations - History of Present Illness Initial comments: Patient is a pleasant 87-year-old female presenting to the emergency department with concerns for her legs. Patient states she has had swelling previously how ever that has increased. Patient now has redness and some discomfort. Patient states now they are open and weeping. Patient did have pacemaker placed a week ago without any complications. Leg problems started worsening the past several days. - Related Data Home Medications Medication Instructions Recorded Confirmed Levothyroxine Sodium [Synthroid] 50 mcg PO QAM 11/07/14 07/20/23 Potassium Chloride ER [K-Dur 20] 20 meq PO BID 03/06/19 07/20/23 Rivaroxaban [Xarelto] 15 mg PO QAM 07/23/21 07/20/23 allopurinoL [Zyloprim] 100 mg PO QAM 05/04/23 07/20/23 Atorvastatin [Lipitor] 40 mg PO HS 05/10/23 07/16/23 Amiodarone [Cordarone] 200 mg PO QAM 07/16/23 07/16/23 Ferrous Sulfate [Iron (65 MG 325 mg PO QAM 07/16/23 07/20/23 Elemental)] Metoprolol Succinate (ER) [Toprol 25 mg PO BID 07/16/23 07/20/23 XL] Pantoprazole [Protonix] 40 mg PO QAM 07/16/23 07/20/23 Torsemide (Unknown Dose) 2 tab PO QAM 07/16/23 07/20/23 Allergies Allergy/AdvReac Type Severity Reaction Status Date / Time doxycycline AdvReac Nausea & Verified 07/31/23 09:18 Vomiting & Diarrhea hydromorphone [From Dilaudid] AdvReac Nausea & Verified 07/31/23 09:18 Vomiting lorazepam [From Ativan] AdvReac Hallucinati Verified 07/31/23 09:18 ons Review of Systems ROS Statement: Those systems with pertinent positive or pertinent negative responses have been documented in the HPI. ROS Other: All systems not noted in ROS Statement are negative. Constitutional: Denies: fever Eyes: Denies: eye pain Respiratory: Denies: cough, dyspnea Skin: Reports: as per HPI, rash Past Medical History Past Medical History: Atrial Fibrillation, Atrial Flutter, Coronary Artery Disease (CAD), Cancer, Heart Failure, COPD, Hyperlipidemia, Hypertension, Liver Disease, Thyroid Disorder, Vascular Disorder Additional Past Medical History / Comment(s): hx Kidney Stones, Chronic N/T BILAT LEGS, WITH BLE EDEMA, states has had lymphedema with weeping valeria lower legs, degenerative arthritis, hx hepatitis C, hx cervical cancer, PVD Last Myocardial Infarction Date:: 2009 History of Any Multi-Drug Resistant Organisms: VRE Date of last positivie culture/infection: 01/14/21 MDRO Source:: VRE URINE Past Surgical History: Appendectomy, Cholecystectomy, Heart Catheterization With Stent, Hysterectomy, Joint Replacement, Pacemaker Additional Past Surgical History / Comment(s): valeria lower ext vascular repairs,2--17 abd. aortogram, ERCP, 4 cardiac stents, left hip replacement Past Anesthesia/Blood Transfusion Reactions: Family History of Problems w/ Anesthesia Additional Past Anesthesia/Blood Transfusion Reaction / Comment(s): sister-long time to come out Date of Last Stent Placement:: 2010? Type of Cardiac Device: Permanent Pacemaker Device Placement Date:: 2014 Past Psychological History: No Psychological Hx Reported Smoking Status: Former smoker Past Alcohol Use History: None Reported Past Drug Use History: None Reported - Past Family History Son(s) Family Medical History: Cancer Additional Family Medical History / Comment(s): Patient has 3 sons and one has been diagnosed with bladder cancer. Brother(s) Family Medical History: Cancer Additional Family Medical History / Comment(s): Patient has 2 brothers and one was diagnosed with esophageal cancer with metastatic disease. Daughter(s) Family Medical History: Cancer, Deep Vein Thrombosis (DVT) Additional Family Medical History / Comment(s): One daughter had Leukemia, another daughter had DVT's, had 4 joint replacements. General Exam Limitations: no limitations General appearance: alert, in no apparent distress Head exam: Present: normocephalic Eye exam: Present: normal appearance Neck exam: Present: normal inspection Respiratory exam: Present: normal lung sounds bilaterally Cardiovascular Exam: Present: regular rate, normal rhythm GI/Abdominal exam: Present: soft. Absent: tenderness Extremities exam: Present: pedal edema, other (Bilateral legs with +4 edema with bullous formation and weeping. There is erythema extending to the mid thigh bilaterally.) Neurological exam: Present: alert Psychiatric exam: Present: normal affect, normal mood Skin exam: Present: erythema Course Vital Signs 07/31/23 07/31/23 09:09 11:38 Temperature 97.2 F L Pulse Rate 60 60 Respiratory 18 20 Rate Blood Pressure 117/56 107/50 O2 Sat by Pulse 93 L 96 Oximetry EKG Findings - EKG Results: EKG: interpreted by SHERIFD (Paced rhythm with a rate of 60.), normal axis, normal QRS, normal ST/T Medical Decision Making - Medical Decision Making Was pt. sent in by a medical professional or institution (, PA, BED MAKER, urgent care, hospital, or halfway...) When possible be specific @ -No Did you speak to anyone other than the patient for history (EMS, parent, family, police, friend...)? What history was obtained from this source @ -No Did you review nursing and triage notes (agree or disagree)? Why? @ -I reviewed and agree with nursing and triage notes Were old charts reviewed (outside hosp., previous admission, EMS record, old EKG, old radiological studies, urgent care reports/EKG's, halfway records)? Report findings @ -No old charts were reviewed Differential Diagnosis (chest pain, altered mental status, abdominal pain women, abdominal pain men, vaginal bleeding, weakness, fever, dyspnea, syncope, headache, dizziness, GI bleed, back pain, seizure, CVA, palpatations, mental health, musculoskeletal)? @ -Differential Fever: Pneumonia, viral URI, endocarditis, myocarditis, pericarditis, otitis, sinusitis, peritonsillar Abscess, retropharyngeal Abscess, epiglottitis, peritonitis, appendicitis, Aminta cystitis, diverticulitis, hepatitis, colitis, UTI, PID, TOA, pyelonephritis, prostatitis, epididymitis, meningitis, encephalitis, pulmonary embolism, CVA, thyroid storm, pancreatitis, adrenal crisis, cavernous sinus thrombosis, this is not meant to be an all-inclusive list. EKG interpreted by me (3pts min.). @ -As above X-rays interpreted by me (1pt min.). @ -Chest x-ray does show some mild CHF CT interpreted by me (1pt min.). @ -None done U/S interpreted by me (1pt. min.). @ -None done What testing was considered but not performed or refused? (CT, X-rays, U/S, labs)? Why? @ -None What meds were considered but not given or refused? Why? @ -None Did you discuss the management of the patient with other professionals (prof mcdaniels i.e. , PA, BED MAKER, lab, RT, psych nurse, social work instructor, vocational rehabilitation specialist, teacher, executive officer, case finishing machine adjuster)? Give summary @ -Case was discussed with Dr. Araiza, who will admit covering hospital Was smoking cessation discussed for >3mins.? @ -No Was critical care preformed (if so, how long)? @ -No Were there social determinants of health that impacted care today? How? (Homelessness, low income, unemployed, alcoholism, drug addiction, transportation, low edu. Level, literacy, decrease access to med. care, penitentiary, rehab)? @ -No Was there de-escalation of care discussed even if they declined (Discuss DNR or withdrawal of care, Hospice)? DNR status @ -No What co-morbidities impacted this encounter? (DM, HTN, Smoking, COPD, CAD, Cancer, CVA, ARF, Chemo, Hep., AIDS, mental health diagnosis, sleep apnea, morbid obesity)? @ -None Was patient admitted / discharged? Hospital course, mention meds given and route, prescriptions, significant lab abnormalities, going to OR and other pertinent info. @ -Patient presents with leg edema with some cellulitic changes. Patient has some concern for CHF on chest x-ray. Patient will be admitted for diuresis and antibiotics. Admission orders written. Undiagnosed new problem with uncertain prognosis? @ -No Drug Therapy requiring intensive monitoring for toxicity (Heparin, Nitro, Insulin, Cardizem)? @ -No Were any procedures done? @ -No Diagnosis/symptom? @ -Bilateral leg cellulitis, CHF Acute, or Chronic, or Acute on Chronic? @ -Acute, acute Uncomplicated (without systemic symptoms) or Complicated (systemic symptoms)? @ -Default Side effects of treatment? @ -No Exacerbation, Progression, or Severe Exacerbation? @ -No Poses a threat to life or bodily function? How? (Chest pain, USA, OR, pneumonia, PE, COPD, DKA, ARF, appy, cholecystitis, CVA, Diverticulitis, Homicidal, Suicidal, threat to staff... and all critical care pts) @ -No - Lab Data Result diagrams: 07/31/23 09:35 07/31/23 09:35 Lab Results 07/31/23 07/31/23 07/31/23 Range/Units 09:35 09:35 09:35 WBC 5.1 (3.8-10.6) k/uL RBC 3.82 (3.80-5.40) m/uL Hgb 11.7 (11.4-16.0) gm/dL Hct 36.7 (34.0-46.0) % MCV 96.0 (80.0-100.0) fL MCH 30.6 (25.0-35.0) pg MCHC 31.8 (31.0-37.0) g/dL RDW 17.9 H (11.5-15.5) % Plt Count 213 (150-450) k/uL MPV 8.7 Neutrophils % (Manual) 52 % Lymphocytes % (Manual) 32 % Monocytes % (Manual) 10 % Eosinophils % (Manual) 6 % Neutrophils # (Manual) 2.65 (1.3-7.7) k/uL Lymphocytes # (Manual) 1.63 (1.0-4.8) k/uL Monocytes # (Manual) 0.51 (0-1.0) k/uL Eosinophils # (Manual) 0.31 (0-0.7) k/uL Nucleated RBCs 0 (0-0) /100 WBC Manual Slide Review Performed Hypochromasia Marked Hypochromasia (manual) Present Anisocytosis Slight Macrocytosis Slight Sodium 138 (137-145) mmol/L Potassium 4.6 (3.5-5.1) mmol/L Chloride 104 (98-107) mmol/L Carbon Dioxide 29 (22-30) mmol/L Anion Gap 5 mmol/L BUN 27 H (7-17) mg/dL Creatinine 1.31 H (0.52-1.04) mg/dL Est GFR (CKD-EPI)AfAm 43 (>60 ml/min/1.73 sqM) Est GFR (CKD-EPI)NonAf 37 (>60 ml/min/1.73 sqM) Glucose 90 (74-99) mg/dL Plasma Lactic Acid Tyler 1.2 (0.7-2.0) mmol/L Calcium 9.2 (8.4-10.2) mg/dL Total Bilirubin 0.9 (0.2-1.3) mg/dL AST 32 (14-36) U/L ALT 13 (4-34) U/L Alkaline Phosphatase 126 (38-126) U/L NT-Pro-B Natriuret Pep 1420 pg/mL Total Protein 7.0 (6.3-8.2) g/dL Albumin 3.3 L (3.5-5.0) g/dL Disposition Clinical Impression: Bilateral lower leg cellulitis, CHF (congestive heart failure) Disposition: ADMITTED IP TO THIS HOSP Is patient prescribed a controlled substance at d/c from ED?: No Referrals: Nonstaff,Physician [Primary Care Provider] - 1-2 days Time of Disposition: 12:27
[2023-07-31 10:02] LABS: Anisocytosis Slight; HCT 36.7 % (34.0-46.0); HGB 11.7 gm/dL (11.4-16.0); Hypochromasia Marked; MCH 30.6 pg (25.0-35.0); MCHC 31.8 g/dL (31.0-37.0); Macrocytosis Slight; Mean Platelet Volume 8.7; Platelet Count 213 k/uL (150-450); RBC 3.82 m/uL (3.80-5.40); RDW 17.9 % (11.5-15.5); WBC 5.1 k/uL (3.8-10.6)
[2023-07-31 10:04] LABS: ALT 13 U/L (4-34); AST 32 U/L (14-36); African American GFR (CKD) 43 (>60 ml/min/1.73 sqM); Albumin 3.3 g/dL (3.5-5.0); Alkaline Phosphatase 126 U/L (38-126); Anion Gap 5 mmol/L; Blood Urea Nitrogen 27 mg/dL (7-17); Calcium 9.2 mg/dL (8.4-10.2); Carbon Dioxide 29 mmol/L (22-30); Chloride 104 mmol/L (98-107); Glucose 90 mg/dL (74-99); Non-African American GFR(CKD) 37 (>60 ml/min/1.73 sqM); Potassium 4.6 mmol/L (3.5-5.1); Sodium 138 mmol/L (137-145); Total Bilirubin 0.9 mg/dL (0.2-1.3)
[2023-07-31 10:14] LABS: NT-Pro-B-Type Natriuretic Pept 1420 pg/mL
--- NOTE | 2023-07-31 10:14 | XR ---
EXAMINATION TYPE: XR chest 2V DATE OF EXAM: 07/31/2023 COMPARISON: Chest x-ray May 13, 2023 HISTORY: Bilateral leg edema TECHNIQUE: Frontal and lateral views of the chest are obtained. FINDINGS: There is suspicious new focal air space opacity, pleural effusion, or pneumothorax seen. C ardiomegaly with dual lead pacemaker and atherosclerotic thoracic aorta is redemonstrated. Mild centr al vascular congestion again seen. Osseous structures are intact. IMPRESSION: Cardiomegaly with mild central vascular congestion consistent with CHF exacerbation/flui d overload state. Correlate clinically.
[2023-07-31 10:32] LABS: Eosinophils # (M) 0.31 k/uL (0-0.7); Lymphocytes # (M) 1.63 k/uL (1.0-4.8); Monocytes # (M) 0.51 k/uL (0-1.0); Neutrophils # (M) 2.65 k/uL (1.3-7.7); Neutrophils % (M) 52 %; Nucleated Red Blood Cells 0 /100 WBC (0-0); Total Cells Counted 100
[2023-07-31 10:33] LABS: Hypochromasia (M) Present
[2023-07-31] MEDS: ceFAZolin 1 GM in DEXTROSE/WATER 1 50ML.BAG IVPB STA (11:24)
[2023-07-31] MEDS: BACITRACIN OINT 1 EACH PACKET TOPICAL ONE (11:24)
--- NOTE | 2023-07-31 13:39 | P.HPIM ---
History of Present Illness This is a pleasant 87 years old female with past medical history of chronic kidney disease stage III, pulmonary hypertension, valvular heart disease. She went to see her burner tender Dr. Boss who changed her pacemaker last Wednesday. Same day she started having bilateral leg swelling and tenderness which got worse and yesterday she has some blisters ruptured so she decided to come to emergency room She complaining from exertional dyspnea but no chest pain. No coughing. No change in urine or bowel habits. She walks little bit using her walker but she denies weakness numbness headache or dizziness. She denies using new medication She denies smoking alcohol or illicit drugs She is mildly tachypneic but rest of vitals are stable and she is afebrile WBC is normal as well as the rest of CBC. WBC is 5.1 BMP is unremarkable. Creatinine 1.3 which is at baseline. Baseline creatinine 1.3-1.728. Liver function enzymes not elevated EKG showing atrial paced rhythm Chest x-ray showing cardiomegaly with mild vascular pulmonary congestion suspicious for CHF Her ejection fraction from 05/10/2023 showing 55 to 60% and also she has some moderate mitral regurgitation and tricuspid regurgitation and pulmonary hypertension Review of Systems Review of systems CONSTITUTIONAL: No fever, no malaise, no fatigue. HEENT: No recent visual problems or hearing problems. Denied any sore throat. CARDIOVASCULAR: No orthopnea, PND, no palpitations, no syncope. PULMONARY: No chest wall tenderness, no hemoptysis. GASTROINTESTINAL: No diarrhea, no nausea, no vomiting, no abdominal pain. Normoactive bowel sounds. NEUROLOGICAL: No headaches, no weakness, no numbness. HEMATOLOGICAL: Denies any bleeding or petechiae. GENITOURINARY: Denies any burning micturition, frequency, or urgency. MUSCULOSKELETAL/RHEUMATOLOGICAL: Denies any joint pain, swelling, or any muscle pain. ENDOCRINE: Denies any polyuria or polydipsia. Past Medical History Past Medical History: Atrial Fibrillation, Atrial Flutter, Coronary Artery Disease (CAD), Cancer, Heart Failure, COPD, Hyperlipidemia, Hypertension, Liver Disease, Thyroid Disorder, Vascular Disorder Additional Past Medical History / Comment(s): hx Kidney Stones, Chronic N/T BILAT LEGS, WITH BLE EDEMA, states has had lymphedema with weeping valeria lower legs, degenerative arthritis, hx hepatitis C, hx cervical cancer, PVD Last Myocardial Infarction Date:: 2009 History of Any Multi-Drug Resistant Organisms: VRE Date of last positivie culture/infection: 01/14/21 MDRO Source:: VRE URINE Past Surgical History: Appendectomy, Cholecystectomy, Heart Catheterization With Stent, Hysterectomy, Joint Replacement, Pacemaker Additional Past Surgical History / Comment(s): valeria lower ext vascular repairs,2-6-17 abd. aortogram, ERCP, 4 cardiac stents, left hip replacement Past Anesthesia/Blood Transfusion Reactions: Family History of Problems w/ Anesthesia Additional Past Anesthesia/Blood Transfusion Reaction / Comment(s): sister-long time to come out Date of Last Stent Placement:: 2010? Type of Cardiac Device: Permanent Pacemaker Device Placement Date:: 2014 Past Psychological History: No Psychological Hx Reported Smoking Status: Former smoker Past Alcohol Use History: None Reported Past Drug Use History: None Reported - Past Family History Son(s) Family Medical History: Cancer Additional Family Medical History / Comment(s): Patient has 3 sons and one has been diagnosed with bladder cancer. Brother(s) Family Medical History: Cancer Additional Family Medical History / Comment(s): Patient has 2 brothers and one was diagnosed with esophageal cancer with metastatic disease. Daughter(s) Family Medical History: Cancer, Deep Vein Thrombosis (DVT) Additional Family Medical History / Comment(s): One daughter had Leukemia, another daughter had DVT's, had 4 joint replacements. Medications and Allergies Home Medications Medication Instructions Recorded Confirmed Type Levothyroxine Sodium [Synthroid] 50 mcg PO QAM 11/07/14 07/20/23 History Potassium Chloride ER [K-Dur 20] 20 meq PO BID 03/06/19 07/20/23 History Rivaroxaban [Xarelto] 15 mg PO QAM 07/23/21 07/20/23 History allopurinoL [Zyloprim] 100 mg PO QAM 05/04/23 07/20/23 History Atorvastatin [Lipitor] 40 mg PO HS 05/10/23 07/16/23 History Amiodarone [Cordarone] 200 mg PO QAM 07/16/23 07/16/23 History Ferrous Sulfate [Iron (65 MG 325 mg PO QAM 07/16/23 07/20/23 History Elemental)] Metoprolol Succinate (ER) [Toprol 25 mg PO BID 07/16/23 07/20/23 History XL] Pantoprazole [Protonix] 40 mg PO QAM 07/16/23 07/20/23 History Torsemide (Unknown Dose) 2 tab PO QAM 07/16/23 07/20/23 History Allergies Allergy/AdvReac Type Severity Reaction Status Date / Time doxycycline AdvReac Nausea & Verified 07/31/23 09:18 Vomiting & Diarrhea hydromorphone [From Dilaudid] AdvReac Nausea & Verified 07/31/23 09:18 Vomiting lorazepam [From Ativan] AdvReac Hallucinati Verified 07/31/23 09:18 ons Physical Exam Vitals: Vital Signs Temp Pulse Resp BP Pulse Ox 07/31/23 11:38 60 20 107/50 96 07/31/23 09:09 97.2 F L 60 18 117/56 93 L Intake and Output 07/30/23 07/31/23 07/31/23 22:59 06:59 14:59 Other: Weight 81.647 kg GENERAL: The patient is alert and oriented x3, not in any acute distress. Well developed, well nourished. HEENT: Pupils are round and equally reacting to light. EOMI. No scleral icterus. No conjunctival pallor. Normocephalic, atraumatic. No pharyngeal erythema. No thyromegaly. CARDIOVASCULAR: S1 and S2 present. No murmurs, rubs, or gallops. PULMONARY: Chest is clear to auscultation, no wheezing , no crackles. ABDOMEN: Soft, nontender, nondistended, normoactive bowel sounds. No palpable organomegaly. MUSCULOSKELETAL: No joint swelling or deformity. -EXTREMITIES: No cyanosis, clubbing, bilateral leg swelling 3+ and bilateral erythema which looks symmetry, and satellite erythema above the knee. She has some superficial ruptured blisters with no significant wheezing. They are tender NEUROLOGICAL: Gross neurological examination did not reveal any focal deficits. SKIN: No rashes. no petechiae. Results CBC & Chem 7: 07/31/23 09:35 07/31/23 09:35 Labs: Abnormal Lab Results - Last 24 Hours (Table) 07/31/23 07/31/23 Range/Units 09:35 09:35 RDW 17.9 H (11.5-15.5) % BUN 27 H (7-17) mg/dL Creatinine 1.31 H (0.52-1.04) mg/dL Albumin 3.3 L (3.5-5.0) g/dL Assessment and Plan Assessment: Bilateral acute cellulitis Bilateral pitting leg edema and basilar palpitations suspicious for acute on chronic diastolic CHF, ejection fraction 55 to 60% Mild to moderate mitral regurgitation and moderate tricuspid regurgitation Chronic kidney disease stage III Pulmonary hypertension Plan: Continue with cefazolin Continue with IV Lasix 40 mg every 8 hours Counseled about fluid restriction Labs and medication were reviewed.. Continue same treatment. Continue with symptomatic treatment. Resume home medication. Monitor labs and vitals. DVT and GI prophylaxis. Further recommendations as per clinical course of the p atient DVT prophylaxis: Subcutaneous heparin GI Prophylaxis: Pepcid PT/OT: Pending Prognosis is guarded
[2023-07-31] MEDS: FUROSEMIDE 10 MG/ML 4 ML VIAL IV SCH (13:57)
[2023-07-31] MEDS: ASPIRIN 325 MG TAB PO STA (13:57)
[2023-07-31] MEDS: NITROGLYCERIN OINT 1 INCH/GM PACKET TOPICAL SCH (14:03)
--- NOTE | 2023-07-31 15:16 | US ---
EXAMINATION TYPE: US venous doppler duplex LE BI DATE OF EXAM: 07/31/2023 1:41 PM COMPARISON: 07/27/2021 CLINICAL INDICATION: Female, 87 years old with history of leg swelling; Bilateral cellulitis, on bloo d thinners. Legs are very tender. SIDE PERFORMED: Bilateral TECHNIQUE: The lower extremity deep venous system is examined utilizing real time linear array sonog jaqui with graded compression, doppler sonography and color-flow sonography. VESSELS IMAGED: Common Femoral Vein Deep Femoral Vein Greater Saphenous Vein * Femoral Vein Popliteal Vein Small Saphenous Vein * Proximal Calf Veins (* superficial vessels) Suboptimal due to patient discomfort Right Leg: Negative for DVT Left Leg: Negative for DVT IMPRESSION: Grayscale, color doppler, spectral doppler imaging performed of the deep veins of the lo wer extremities. There is normal flow, compressibility, vascular waveforms.
[2023-07-31] MEDS: ceFAZolin 1 GM in DEXTROSE/WATER 1 50ML.BAG IVPB SCH (15:33)
[2023-07-31 18:24] LABS: INR 1.2 (<1.2); Prothrombin Time 12.8 sec (10.0-12.5)
[2023-07-31] MEDS: HEPARIN SODIUM,PORCINE 5,000 UNIT/ML 1 ML VIAL SQ SCH (20:35)
[2023-07-31] MEDS: FAMOTIDINE 20 MG/2 ML VIAL IV SCH (20:35)
[2023-07-31] MEDS: ACETAMINOPHEN TAB 325 MG TAB PO PRN (20:36)
[2023-08-01 08:22] LABS: Anisocytosis Slight; Basophils % (A) 0 %; Eosinophils # (A) 0.2 k/uL (0-0.7); Eosinophils % (A) 4 %; HCT 34.8 % (34.0-46.0); HGB 10.9 gm/dL (11.4-16.0); Hypochromasia Marked; Lymphocytes # (A) 1.4 k/uL (1.0-4.8); Lymphocytes % (A) 24 %; MCH 29.9 pg (25.0-35.0); MCHC 31.3 g/dL (31.0-37.0); MCV 95.6 fL (80.0-100.0); Macrocytosis Slight; Mean Platelet Volume 8.8; Monocytes # (A) 0.4 k/uL (0-1.0); Monocytes % (A) 7 %; Neutrophils # (A) 3.4 k/uL (1.3-7.7); Neutrophils % (A) 61 %; Platelet Count 205 k/uL (150-450); RBC 3.64 m/uL (3.80-5.40); RDW 18.1 % (11.5-15.5); WBC 5.5 k/uL (3.8-10.6)
[2023-08-01 08:26] LABS: African American GFR (CKD) 37 (>60 ml/min/1.73 sqM); Anion Gap 4 mmol/L; Blood Urea Nitrogen 25 mg/dL (7-17); Calcium 8.4 mg/dL (8.4-10.2); Carbon Dioxide 32 mmol/L (22-30); Chloride 103 mmol/L (98-107); Glucose 113 mg/dL (74-99); Non-African American GFR(CKD) 32 (>60 ml/min/1.73 sqM); Potassium 3.4 mmol/L (3.5-5.1); Sodium 139 mmol/L (137-145)
[2023-08-01] MEDS ORDERED: Potassium Replacement Protocol 1 EACH MISC MISCELLANE PRN (12:01)
[2023-08-01] MEDS: POTASSIUM CHLORIDE ER 20 MEQ TAB.ER PO SCH (13:30)
--- NOTE | 2023-08-01 14:14 | P.CRDCN ---
History of Present Illness Consult date: 08/01/23 Chief complaint: Shortness of breath and bilateral lower extremities edema History of present illness: This is a very pleasant 87-year-old female patient who is known to our service from before with a past medical history significant for heart failure with preserved ejection fraction and paroxysmal atrial fibrillation and hypertension and dyslipidemia and permanent pacemaker and valvular heart disease and pulmonary hypertension. The [facility]. She was brought to the hospital by her family with increasing shortness of breath started about a week ago after she underwent generator change for her pacemaker. Beside that she was experiencing progressive bilateral lower extremities edema. No pain in the chest. No dizziness or lightheadedness and no feeling of heart racing or fluttering and no presyncope or syncope. Clearly she was hypoxic when she was brought to the hospital on room air. She was also found to have severe bilateral lower extremity cellulitis. The patient was on oral diuretics as an outpatient. She was seen by our service back in April 2023 where she underwent an echo which revealed normal LV systolic function with moderate mitral regurgitation and moderate pul monary hypertension and moderate tricuspid regurgitation. On examination she has severe bilateral lower extremities edema and skin changes consistent with cellulitis. Venous duplex study shows no evidence of deep venous thrombosis. NT proBNP is slightly elevated. Kidney function is abnormal and consistent with her chronic kidney disease. The EKG showed atrial paced rhythm with no significant changes. The rest of the blood work overall came in to be unremarkable with the patient was started on Lasix IV which I would agree on. Assessment Heart failure with evidence of right and left failure Lower extremity cellulitis Permanent pacemaker implantation and status post generator change Paroxysmal atrial fibrillation Valvular heart disease Multiple comorbid conditions Plan Agree about the current dose of Lasix IV Monitor the kidney function and electrolytes No need to repeat the echocardiogram at this point in the light of recent echo from April 2023 Follow-up with the patient Continue oral anticoagulation Past Medical History Past Medical History: Atrial Fibrillation, Atrial Flutter, Coronary Artery Disease (CAD), Cancer, Heart Failure, COPD, Hyperlipidemia, Hypertension, Liver Disease, Thyroid Disorder, Vascular Disorder Additional Past Medical History / Comment(s): hx Kidney Stones, Chronic N/T BILAT LEGS, WITH BLE EDEMA, states has had lymphedema with weeping valeria lower legs, degenerative arthritis, hx hepatitis C, hx cervical cancer, PVD Last Myocardial Infarction Date:: 2009 History of Any Multi-Drug Resistant Organisms: VRE Date of last positivie culture/infection: 01/14/21 MDRO Source:: VRE URINE Past Surgical History: Appendectomy, Cholecystectomy, Heart Catheterization With Stent, Hysterectomy, Joint Replacement, Pacemaker Additional Past Surgical History / Comment(s): valeria lower ext vascular repairs,2-6-17 abd. aortogram, ERCP, 4 cardiac stents, left hip replacement Past Anesthesia/Blood Transfusion Reactions: Family History of Problems w/ Anesthesia Additional Past Anesthesia/Blood Transfusion Reaction / Comment(s): sister-long time to come out Date of Last Stent Placement:: 2010? Type of Cardiac Device: Permanent Pacemaker Device Placement Date:: 2014, 2023 replaced Past Psychological History: No Psychological Hx Reported Smoking Status: Former smoker Past Alcohol Use History: None Reported Additional Past Alcohol Use History / Comment(s): Patient quit smoking in 2018. She smoked one pack per day for 70 years Past Drug Use History: None Reported - Past Family History Son(s) Family Medical History: Cancer Additional Family Medical History / Comment(s): Patient has 3 sons and one has been diagnosed with bladder cancer. Brother(s) Family Medical History: Cancer Additional Family Medical History / Comment(s): Patient has 2 brothers and one was diagnosed with esophageal cancer with metastatic disease. Daughter(s) Family Medical History: Cancer, Deep Vein Thrombosis (DVT) Additional Family Medical History / Comment(s): One daughter had Leukemia, another daughter had DVT's, had 4 joint replacements. Medications and Allergies Home Medications Medication Instructions Recorded Confirmed Type Levothyroxine Sodium [Synthroid] 50 mcg PO DAILY 11/07/14 07/31/23 History Potassium Chloride ER [K-Dur 20] 20 meq PO BID 03/06/19 07/31/23 History Rivaroxaban [Xarelto] 15 mg PO DAILY 07/23/21 07/31/23 History allopurinoL [Zyloprim] 100 mg PO DAILY 05/04/23 07/31/23 History Atorvastatin [Lipitor] 40 mg PO HS 05/10/23 07/31/23 History Amiodarone [Cordarone] 200 mg PO DAILY 07/16/23 07/31/23 History Ferrous Sulfate [Iron (65 MG 325 mg PO DAILY 07/16/23 07/31/23 History Elemental)] Pantoprazole [Protonix] 40 mg PO DAILY 07/16/23 07/31/23 History Metoprolol Succinate (ER) [Toprol 50 mg PO BID 07/31/23 07/31/23 History Xl] SILVER sulfADIAZINE CREAM 1 applic TOPICAL BID 07/31/23 07/31/23 History [Silvadene Cream] Torsemide [Demadex] 40 mg PO DAILY 07/31/23 07/31/23 History Allergies Allergy/AdvReac Type Severity Reaction Status Date / Time doxycycline AdvReac Nausea & Verified 07/31/23 20:03 Vomiting & Diarrhea hydromorphone [From Dilaudid] AdvReac Nausea & Verified 07/31/23 20:03 Vomiting lorazepam [From Ativan] AdvReac Hallucinati Verified 07/31/23 20:03 ons Physical Exam Vitals: Vital Signs Temp Pulse Pulse Resp BP BP Pulse Ox 08/01/23 12:30 97.7 F 70 14 121/65 08/01/23 08:00 97.4 F L 68 20 119/72 95 08/01/23 06:29 107/66 08/01/23 02:00 97.2 F L 68 16 116/67 96 07/31/23 20:00 97.3 F L 60 16 143/55 97 07/31/23 17:42 97.3 F L 65 18 121/57 94 L 07/31/23 15:29 60 18 91/74 Intake and Output 07/31/23 08/01/23 08/01/23 22:59 06:59 14:59 Intake Total 50 100 Output Total 700 Balance 50 -600 Intake: Intake, IV Titration 50 Amount ceFAZolin 1 gm In 50 Dextrose/Water 1 50ml.bag @ 100 mls/hr IVPB Q8HR [facility] Rx#:[id number] Oral 100 Output: Urine 700 Other: Voiding Method External Catheter # Bowel Movements 1 Weight 81.647 kg Results 08/01/23 08:00 08/01/23 08:00 Coagulation 07/31/23 Range/Units 17:38 PT 12.8 H (10.0-12.5) sec APTT 29.0 (22.0-30.0) sec CBC 08/01/23 Range/Units 08:00 WBC 5.5 (3.8-10.6) k/uL RBC 3.64 L (3.80-5.40) m/uL Hgb 10.9 L (11.4-16.0) gm/dL Hct 34.8 (34.0-46.0) % Plt Count 205 (150-450) k/uL Comprehensive Metabolic Panel 08/01/23 Range/Units 08:00 Sodium 139 (137-145) mmol/L Potassium 3.4 L (3.5-5.1) mmol/L Chloride 103 (98-107) mmol/L Carbon Dioxide 32 H (22-30) mmol/L BUN 25 H (7-17) mg/dL Creatinine 1.48 H (0.52-1.04) mg/dL Glucose 113 H (74-99) mg/dL Calcium 8.4 (8.4-10.2) mg/dL Current Medications Generic Name Dose Route Start Last Admin Trade Name Freq PRN Reason Stop Dose Admin Acetaminophen 325 mg 07/31/23 13:40 07/31/23 20:36 Acetaminophen Tab 325 Mg Tab PO 325 mg Q6HR PRN Administration Fever and/ or Pain Aspirin 325 mg 08/01/23 09:00 Aspirin 325 Mg Tab PO DAILY SERGIO Famotidine 20 mg 07/31/23 21:00 07/31/23 20:35 Famotidine 20 Mg/2 Ml Vial IV 20 mg HS SERGIO Administration Furosemide 40 mg 07/31/23 12:30 08/01/23 13:30 Furosemide 10 Mg/Ml 4 Ml Vial IV 40 mg Q8H SERGIO Administration Heparin Sodium (Porcine) 5,000 unit 07/31/23 21:00 08/01/23 08:41 Heparin Sodium,Porcine 5,000 Unit/Ml 1 Ml Vial SQ 5,000 unit Q12HR SERGIO Administration Cefazolin Sodium/Dextrose 1 gm 50 mls @ 100 mls/hr 07/31/23 16:00 08/01/23 0 9:00 / IV Solution IVPB 100 mls/hr Q8HR SERGIO Administration Miscellaneous Information 1 each 08/01/23 12:01 Potassium Replacement Protocol 1 Each Misc MISCELLANE DAILY PRN Per Protocol Protocol Intake and Output 07/31/23 08/01/23 08/01/23 22:59 06:59 14:59 Intake Total 50 100 Output Total 700 Balance 50 -600 Intake: Intake, IV Titration 50 Amount ceFAZolin 1 gm In 50 Dextrose/Water 1 50ml.bag @ 100 mls/hr IVPB Q8HR [facility] Rx#:[id number] Oral 100 Output: Urine 700 Other: Voiding Method External Catheter # Bowel Movements 1 Weight 81.647 kg 08/01/23 08:00 08/01/23 08:00
[2023-08-01] MEDS: ASPIRIN 325 MG TAB PO SCH (19:44)
--- NOTE | 2023-08-01 19:59 | CA ---
Transthoracic Echo Report Name: Rohini Hansen Age: 87 Gender: F : 1935 Exam Date: 07/31/2023 14:14 Exam Location: [facility] Ht (in): 61 Wt (lb): 180 Ordering Physician: Jose Washington DO Attending/Referring Phys: Cut Off Machine Helper Chas Cheng RDCS Procedure CPT: Indications: Heart failure Cardiac Hx: Technical Quality: Contrast 1: Total Dose (mL): Contrast 2: Total Dose (mL): MEASUREMENTS (Male / Female) Normal Values 2D ECHO LV Diastolic Diameter PLAX 3.1 cm 4.2 - 5.9 / 3.9 - 5.3 cm LV Systolic Diameter PLAX 2.3 cm IVS Diastolic Thickness 1.2 cm 0.6 - 1.0 / 0.6 - 0.9 cm LVPW Diastolic Thickness 0.8 cm 0.6 - 1.0 / 0.6 - 0.9 cm LV Relative Wall Thickness 0.7 LVOT Diameter 1.9 cm Aortic Root Diameter 2.8 cm LA Systolic Diameter LX 2.7 cm 3.0 - 4.0 / 2.7 - 3.8 cm DOPPLER AV Peak Velocity 141.0 cm/s AV Peak Gradient 8.0 mmHg AV Mean Velocity 88.7 cm/s AV Mean Gradient 3.4 mmHg AV Velocity Time Integral 33.5 cm LVOT Peak Velocity 74.0 cm/s LVOT Peak Gradient 2.2 mmHg LVOT Velocity Time Integral 16.6 cm LVOT Stroke Volume 46.1 cm??? LVOT Stroke Volume Index 25.5 ml/m??? LVOT Cardiac Index 1445.9 cm???/min???m??? AV Area Cont Eq vti 1.4 cm??? AV Area Cont Eq pk 1.5 cm??? Mitral E Point Velocity 102.0 cm/s Mitral A Point Velocity 70.7 cm/s Mitral E to A Ratio 1.4 MV Deceleration Time 263.2 ms TR Peak Velocity 281.3 cm/s TR Peak Gradient 31.6 mmHg PV Peak Velocity 59.2 cm/s PV Peak Gradient 1.4 mmHg FINDINGS Left Ventricle Mildly increased septal wall thickness. Left ventricular ejection fraction is estimated at 55-60 %. Left ventricular hypertrophy. Right Ventricle Pacemaker wire in the right ventricular cavity. Normal right ventricular size. Right Atrium Normal right atrial size. Left Atrium Normal left atrial size. Mitral Valve [id number] mitral regurgitation. Aortic Valve Trileaflet aortic valve. Tricuspid Valve Moderate tricuspid regurgitation. Pulmonic Valve Trace pulmonic regurgitation. Pericardium No pericardial effusion. Aorta Normal size aortic root. CONCLUSIONS Previous echo recorded on 05/12/2023. Technically difficult study for interpretation Normal LV systolic function Mild to moderate mitral regurgitation Previewed by: Dr. Salvador Cotton MD (Electronically Signed) Final Date: 01 August 2023 19:58
[2023-08-01] MEDS: METOPROLOL SUCCINATE (ER) 50 MG TAB.ER.24H PO SCH (20:20)
[2023-08-01] MEDS: ATORVASTATIN 40 MG TAB PO SCH (20:20)
--- NOTE | 2023-08-01 21:49 | P.CONS ---
History of Present Illness - Reason for Consult Consult date: 08/01/23 Cellulitis Requesting physician: Jaskaran E Sheet - Chief Complaint Increasing swelling redness to bilateral leg x days - History of Present Illness Patient is a 87-year-old female with a past medical history significant for hypertension hyperlipidemia COPD heart failure with atrial fibrillation presenting to the hospital for evaluation of increasing swelling to bilateral lower extremity with associated redness and some itching patient also complaining of pain to bilateral extremity more of a dull aching to sharp moderate intensity without any radiation patient currently do not have any blisters or open wound or any drainage and also complaining of increasing shortness of breath but no chest pain or cough no nausea vomiting no abdominal pain no diarrhea patient on presentation to the hospital was afebrile and no fever have been recorded subsequently patient was not tachycardic or hypotensive the patient was mildly hypoxic currently on 2 L nasal cannula oxygen patient did have a white count of 5.5 BUN/creatinine has been mildly elevated liver enzymes are normal blood cultures obtained which are currently pending patient did have a chest x-ray cardiomegaly with mild central vascular congestion consistent with a CHF patient did have a lower extremity Doppler that has been negative for DVT patient was started on cefazolin infectious disease was consulted for further management of antibiotic therapy Review of Systems Positive point and negatives has been mentioned in the HPI, complete review of systems was performed and all other systems are negative Past Medical History Past Medical History: Atrial Fibrillation, Atrial Flutter, Coronary Artery Disease (CAD), Cancer, Heart Failure, COPD, Hyperlipidemia, Hypertension, Liver Disease, Thyroid Disorder, Vascular Disorder Additional Past Medical History / Comment(s): hx Kidney Stones, Chronic N/T BI LAT LEGS, WITH BLE EDEMA, states has had lymphedema with weeping valeria lower legs, degenerative arthritis, hx hepatitis C, hx cervical cancer, PVD Last Myocardial Infarction Date:: 2009 History of Any Multi-Drug Resistant Organisms: VRE Year Discovered:: 01/14/21 MDRO Source:: VRE URINE Past Surgical History: Appendectomy, Cholecystectomy, Heart Catheterization With Stent, Hysterectomy, Joint Replacement, Pacemaker Additional Past Surgical History / Comment(s): valeria lower ext vascular repairs,2-6-17 abd. aortogram, ERCP, 4 cardiac stents, left hip replacement Past Anesthesia/Blood Transfusion Reactions: Family History of Problems w/ Anesthesia Additional Past Anesthesia/Blood Transfusion Reaction / Comm: sister-long time to come out Date of Last Stent Placement:: 2010? Type of Cardiac Device: Permanent Pacemaker Device Placement Date:: 2023 replaced Past Psychological History: No Psychological Hx Reported Smoking Status: Former smoker Past Alcohol Use History: None Reported Additional Past Alcohol Use History / Comment(s): Patient quit smoking in 2018. She smoked one pack per day for 70 years Past Drug Use History: None Reported - Past Family History Son(s) Family Medical History: Cancer Additional Family Medical History / Comment(s): Patient has 3 sons and one has been diagnosed with bladder cancer. Brother(s) Family Medical History: Cancer Additional Family Medical History / Comment(s): Patient has 2 brothers and one was diagnosed with esophageal cancer with metastatic disease. Daughter(s) Family Medical History: Cancer, Deep Vein Thrombosis (DVT) Additional Family Medical History / Comment(s): One daughter had Leukemia, another daughter had DVT's, had 4 joint replacements. Medications and Allergies Home Medications Medication Instructions Recorded Confirmed Type Levothyroxine Sodium [Synthroid] 50 mcg PO DAILY 11/07/14 07/31/23 History Potassium Chloride ER [K-Dur 20] 20 meq PO BID 03/06/19 07/31/23 History Rivaroxaban [Xarelto] 15 mg PO DAILY 07/23/21 07/31/23 History allopurinoL [Zyloprim] 100 mg PO DAILY 05/04/23 07/31/23 History Atorvastatin [Lipitor] 40 mg PO HS 05/10/23 07/31/23 History Amiodarone [Cordarone] 200 mg PO DAILY 07/16/23 07/31/23 History Ferrous Sulfate [Iron (65 MG 325 mg PO DAILY 07/16/23 07/31/23 History Elemental)] Pantoprazole [Protonix] 40 mg PO DAILY 07/16/23 07/31/23 History Metoprolol Succinate (ER) [Toprol 50 mg PO BID 07/31/23 07/31/23 History XL] SILVER sulfADIAZINE CREAM 1 applic TOPICAL BID 07/31/23 07/31/23 History [Silvadene Cream] Torsemide [Demadex] 40 mg PO DAILY 07/31/23 07/31/23 History Cephalexin [Keflex] 500 mg PO Q8HR 7 Days #21 cap 08/05/23 Rx Furosemide [Lasix] 40 mg PO BID #60 tablet 08/05/23 Rx traMADol HCl [Ultram] 25 mg PO QID PRN 3 Days #15 tab 08/05/23 Rx Allergies Allergy/AdvReac Type Severity Reaction Status Date / Time doxycycline AdvReac Nausea & Verified 07/31/23 20:03 Vomiting & Diarrhea hydromorphone [From Dilaudid] AdvReac Nausea & Verified 07/31/23 20:03 Vomiting lorazepam [From Ativan] AdvReac Hallucinati Verified 07/31/23 20:03 ons Physical Exam Vitals: Vital Signs Temp Pulse Pulse Resp BP BP Pulse Ox 08/01/23 08:00 97.4 F L 68 20 119/72 95 08/01/23 06:29 107/66 08/01/23 02:00 97.2 F L 68 16 116/67 96 07/31/23 20:00 97.3 F L 60 16 143/55 97 07/31/23 17:42 97.3 F L 65 18 121/57 94 L 07/31/23 15:29 60 18 91/74 Intake and Output 07/31/23 08/01/23 08/01/23 22:59 06:59 14:59 Intake Total 50 100 Output Total 700 Balance 50 -600 Intake: Intake, IV Titration 50 Amount ceFAZolin 1 gm In 50 Dextrose/Water 1 50ml.bag @ 100 mls/hr IVPB Q8HR [facility] Rx#:[id number] Oral 100 Output: Urine 700 Other: Voiding Method External Catheter # Bowel Movements 1 Weight 81.647 kg GENERAL DESCRIPTION: Elderly female lying in bed, no distress. No tachypnea or accessory muscle of respiration use. HEENT: Shows Pallor , no scleral icterus. Oral mucous membrane is dry. No pharyngeal erythema or thrush NECK: Trachea central, no thyromegaly. LUNGS: Unlabored breathing. Clear to auscultation anteriorly. No wheeze or crackle. HEART: S1, S2, regular rate and rhythm. No loud murmur ABDOMEN: Soft, no tenderness , guarding or rigidity, no organomegaly EXTREMITIES: Bilateral lower extremity with swelling and redness she did have a wound to the left lateral leg but no slough tissue or any foul-smelling drainage SKIN: No rash, no masses palpable. NEUROLOGICAL: The patient is awake, alert, oriented x3, mood and affect normal. Results CBC & Chem 7: 08/03/23 10:39 08/05/23 07:10 Labs: Abnormal Lab Results - Last 24 Hours (Table) 07/31/23 08/01/23 08/01/23 Range/Units 17:38 08:00 08:00 RBC 3.64 L (3.80-5.40) m/uL Hgb 10.9 L (11.4-16.0) gm/dL RDW 18.1 H (11.5-15.5) % PT 12.8 H (10.0-12.5) sec INR 1.2 H (<1.2) Potassium 3.4 L (3.5-5.1) mmol/L Carbon Dioxide 32 H (22-30) mmol/L BUN 25 H (7-17) mg/dL Creatinine 1.48 H (0.52-1.04) mg/dL Glucose 113 H (74-99) mg/dL Assessment and Plan (1) Bilateral lower leg cellulitis Current Visit: Yes Status: Acute Code(s): L03.116 - CELLULITIS OF LEFT LOWER LIMB; L03.115 - CELLULITIS OF RIGHT LOWER LIMB SNOMED Code(s): 921158198 Plan: 1patient presented to hospital with increasing bilateral lower extremity swelling also with increasing shortness of breath in this patient who did have evidence of fluid overload and a component of bilateral lower extremity cellulitis likely from gram-positive skin michael 2-patient with a mild renal insufficiency 3-marked the area of the redness and apply Erasto wrap from just above the toe to below the knee change daily discussed with the nursing staff 4-cefazolin 1 g every 8 hours to continue to dose adjust to the kidney function We will follow on clinical condition and cultures to further adjust medication if needed Thank you for this consultation we will follow the patient along with you Dictation was produced using [employer] dictation software. please excuse any grammatical, word or spelling errors. Time with Patient: Greater than 30
[2023-08-02] MEDS: LEVOTHYROXINE 50 MCG TAB PO SCH (05:58)
--- NOTE | 2023-08-02 06:13 | P.PN ---
Subjective this note belongs to date of service on This is a pleasant 87 years old female with past medical history of chronic kidney disease stage III, pulmonary hypertension, valvular heart disease. She went to see her automatic pilot mechanic Dr. Boss who changed her pacemaker last Wednesday. Same day she started having bilateral leg swelling and tenderness which got worse and yesterday she has some blisters ruptured so she decided to come to emergency room She complaining from exertional dyspnea but no chest pain. No coughing. No change in urine or bowel habits. She walks little bit using her walker but she denies weakness numbness headache or dizziness. She denies using new medication She denies smoking alcohol or illicit drugs She is mildly tachypneic but rest of vitals are stable and she is afebrile WBC is normal as well as the rest of CBC. WBC is 5.1 BMP is unremarkable. Creatinine 1.3 which is at baseline. Baseline creatinine 1.3-1.728. Liver function enzymes not elevated EKG showing atrial paced rhythm Chest x-ray showing cardiomegaly with mild vascular pulmonary congestion suspicious for CHF Her ejection fraction from 05/10/2023 showing 55 to 60% and also she has some moderate mitral regurgitation and tricuspid regurgitation and pulmonary hypertension 08/01/2023 Patient awake alert Lying in bed not in distress Her both legs are still swollen with slightly better than yesterday and the redness also shown some improvement while she is on cefazolin Potassium 3.4 and replacement protocol order placed Also I consulted infectious disease team for further care and management. Repeat labs in the morning Objective - Vital Signs Vital signs: Vital Signs Temp 98.1 F 08/02/23 02:00 Pulse 60 08/02/23 02:00 Resp 16 08/02/23 02:00 BP 119/58 08/02/23 02:00 Pulse Ox 93 L 08/02/23 02:00 FiO2 Intake & Output 08/01/23 08/01/23 08/02/23 06:59 18:59 06:59 Intake Total 150 500 Output Total 700 1100 Balance -550 -600 Weight 81.647 kg Intake: Intake, IV Titration 50 Amount ceFAZolin 1 gm In 50 Dextrose/Water 1 50ml.bag @ 100 mls/hr IVPB Q8HR [facility] Rx#:[id number] Oral 100 500 Output: Urine 700 1100 Other: Voiding Method External Catheter # Voids 1 # Bowel Movements 1 - Exam GENERAL: The patient is alert and oriented x3, not in any acute distress. Well developed, well nourished. HEENT: Pupils are round and equally reacting to light. EOMI. No scleral icterus. No conjunctival pallor. Normocephalic, atraumatic. No pharyngeal erythema. No thyromegaly. CARDIOVASCULAR: S1 and S2 present. No murmurs, rubs, or gallops. PULMONARY: Chest is clear to auscultation, no wheezing , no crackles. ABDOMEN: Soft, nontender, nondistended, normoactive bowel sounds. No palpable organomegaly. MUSCULOSKELETAL: No joint swelling or deformity. EXTREMITIES: No cyanosis, clubbing, bilateral leg swelling 3+ and bilateral erythema which looks symmetry, and satellite erythema above the knee. She has some superficial ruptured blisters with no significant wheezing. They are tender NEUROLOGICAL: Gross neurological examination did not reveal any focal deficits. SKIN: No rashes. no petechiae. - Labs CBC & Chem 7: 08/01/23 08:00 08/01/23 08:00 Labs: Abnormal Lab Results - Last 24 Hours (Table) 08/01/23 08/01/23 Range/Units 08:00 08:00 RBC 3.64 L (3.80-5.40) m/uL Hgb 10.9 L (11.4-16.0) gm/dL RDW 18.1 H (11.5-15.5) % Potassium 3.4 L (3.5-5.1) mmol/L Carbon Dioxide 32 H (22-30) mmol/L BUN 25 H (7-17) mg/dL Creatinine 1.48 H (0.52-1.04) mg/dL Glucose 113 H (74-99) mg/dL Microbiology - Last 24 Hours (Table) 07/31/23 09:37 Blood Culture - Preliminary Blood 07/31/23 09:42 Blood Culture - Preliminary Blood Assessment and Plan Assessment: Bilateral acute cellulitis Bilateral pitting leg edema and basilar palpitations suspicious for acute on chronic diastolic CHF, ejection fraction 55 to 60% Mild to moderate mitral regurgitation and moderate tricuspid regurgitation Chronic kidney disease stage III Pulmonary hypertension Plan: Continue with cefazolin Continue with IV Lasix 40 mg every 8 hours Monitor potassium and magnesium and replace accordingly Infectious disease consult Cardiology consult Counseled about fluid restriction Labs and medication were reviewed.. Continue same treatment. Continue with symptomatic treatment. Resume home medication. Monitor labs and vitals. DVT and GI prophylaxis. Further recommendations as per clinical course of the patient DVT prophylaxis: Subcutaneous heparin GI Prophylaxis: Pepcid PT/OT: Pending Prognosis is guarded
[2023-08-02] MEDS: FERROUS SULFATE 325 MG TAB PO SCH (08:53)
[2023-08-02] MEDS: AMIODARONE 200 MG TAB PO SCH (08:53)
[2023-08-02] MEDS: PANTOPRAZOLE 40 MG TABLET PO SCH (08:53)
[2023-08-02] MEDS: RIVAROXABAN 15 MG TAB PO SCH (08:53)
[2023-08-02 09:28] LABS: African American GFR (CKD) 47 (>60 ml/min/1.73 sqM); Anion Gap 5 mmol/L; Blood Urea Nitrogen 21 mg/dL (7-17); Calcium 8.7 mg/dL (8.4-10.2); Carbon Dioxide 35 mmol/L (22-30); Chloride 103 mmol/L (98-107); Glucose 119 mg/dL (74-99); Magnesium 1.6 mg/dL (1.6-2.3); Non-African American GFR(CKD) 41 (>60 ml/min/1.73 sqM); Sodium 143 mmol/L (137-145)
--- NOTE | 2023-08-02 10:29 | P.PN ---
Subjective This is a pleasant 87 years old female with past medical history of chronic kidney disease stage III, pulmonary hypertension, valvular heart disease. She went to see her patent chemist Dr. Boss who changed her pacemaker last Wednesday. Same day she started having bilateral leg swelling and tenderness which got worse and yesterday she has some blisters ruptured so she decided to come to emergency room She complaining from exertional dyspnea but no chest pain. No coughing. No change in urine or bowel habits. She walks little bit using her walker but she denies weakness numbness headache or dizziness. She denies using new medication She denies smoking alcohol or illicit drugs She is mildly tachypneic but rest of vitals are stable and she is afebrile WBC is normal as well as the rest of CBC. WBC is 5.1 BMP is unremarkable. Creatinine 1.3 which is at baseline. Baseline creatinine 1.3-1.728. Liver function enzymes not elevated EKG showing atrial paced rhythm Chest x-ray showing cardiomegaly with mild vascular pulmonary congestion susp icious for CHF Her ejection fraction from 05/10/2023 showing 55 to 60% and also she has some moderate mitral regurgitation and tricuspid regurgitation and pulmonary hypertension 08/01/2023 Patient awake alert Lying in bed not in distress Her both legs are still swollen with slightly better than yesterday and the redness also shown some improvement while she is on cefazolin Potassium 3.4 and replacement protocol order placed Also I consulted infectious disease team for further care and management. Repeat labs in the morning 08/02/2023 Patient improving and doing well Breathing stable and is improving Leg cellulitis is improving as well, legs are wrapped With Erasto bandage Possible discharge in 24 to 48 hours if she gets improvement however patient needs to be evaluated for possible rehab given her old age and being on Xarelto as well while having this significant cellulitis and heart problem Objective - Vital Signs Vital signs: Vital Signs Temp 97.5 F L 08/02/23 07:35 Pulse 63 08/02/23 07:35 Resp 15 08/02/23 07:35 BP 109/67 08/02/23 07:35 Pulse Ox 93 L 08/02/23 07:35 FiO2 Intake & Output 08/01/23 08/02/23 08/02/23 18:59 06:59 18:59 Intake Total 500 118 Output Total 1100 Balance -600 118 Intake: Oral 500 118 Output: Urine 1100 Other: # Voids 1 - Exam GENERAL: The patient is alert and oriented x3, not in any acute distress. Well developed, well nourished. HEENT: Pupils are round and equally reacting to light. EOMI. No scleral icterus. No conjunctival pallor. Normocephalic, atraumatic. No pharyngeal erythema. No thyromegaly. CARDIOVASCULAR: S1 and S2 present. No murmurs, rubs, or gallops. PULMONARY: Chest is clear to auscultation, no wheezing , no crackles. ABDOMEN: Soft, nontender, nondistended, normoactive bowel sounds. No palpable organomegaly. MUSCULOSKELETAL: No joint swelling or deformity. EXTREMITIES: No cyanosis, clubbing, bilateral leg swelling 3+ and bilateral erythema which looks symmetry, and satellite erythema above the knee. She has some superficial ruptured blisters with no significant wheezing. They are tender NEUROLOGICAL: Gross neurological examination did not reveal any focal deficits. SKIN: No rashes. no petechiae. - Labs CBC & Chem 7: 08/01/23 08:00 08/02/23 08:16 Labs: Abnormal Lab Results - Last 24 Hours (Table) 08/02/23 Range/Units 08:16 Carbon Dioxide 35 H (22-30) mmol/L BUN 21 H (7-17) mg/dL Creatinine 1.20 H (0.52-1.04) mg/dL Glucose 119 H (74-99) mg/dL Microbiology - Last 24 Hours (Table) 07/31/23 09:37 Blood Culture - Preliminary Blood 07/31/23 09:42 Blood Culture - Preliminary Blood Assessment and Plan Assessment: Bilateral acute cellulitis Bilateral pitting leg edema and basilar palpitations suspicious for acute on chronic diastolic CHF, ejection fraction 55 to 60% Mild to moderate mitral regurgitation and moderate tricuspid regurgitation Chronic kidney disease stage III Pulmonary hypertension Plan: Continue with cefazolin Continue with IV Lasix 40 mg every 8 hours Monitor potassium and magnesium and replace accordingly Infectious disease consult Cardiology consult Counseled about fluid restriction Labs and medication were reviewed.. Continue same treatment. Continue with symptomatic treatment. Resume home medication. Monitor labs and vitals. DVT and GI prophylaxis. Further recommendations as per clinical course of the patient DVT prophylaxis: Subcutaneous heparin GI Prophylaxis: Pepcid PT/OT: Pending Prognosis is guarded
[2023-08-02] MEDS ORDERED: ZINC OXIDE PASTE (Z-GUARD) 1 APPLIC TOPICAL PRN (10:35)
--- NOTE | 2023-08-02 14:41 | P.PN ---
Subjective Progress Note Date: 08/02/23 Chief complaint: Shortness of breath and bilateral lower extremities edema History of present illness: This is a very pleasant 87-year-old female patient who is known to our service from before with a past medical history significant for heart failure with preserved ejection fraction and paroxysmal atrial fibrillation and hypertension and dyslipidemia and permanent pacemaker and valvular heart disease and pulmonary hypertension. The patient currently is residing at [facility]. She was brought to the hospital by her family with increasing shortness of breath started about a week ago after she underwent generator change for her pacemaker. Beside that she was experiencing progressive bilateral lower extremities edema. No pain in the chest. No dizziness or lightheadedness and no feeling of heart racing or fluttering and no presyncope or syncope. Clearly she was hypoxic when she was brought to the hospital on room air. She was also found to have severe bilateral lower extremity cellulitis. The patient was on oral diuretics as an outpatient. She was seen by our service back in April 2023 where she underwent an echo which revealed normal LV systolic function with moderate mitral regurgitation and moderate pulmonary hypertension and moderate tricuspid regurgitation. On examination she has severe bilateral lower extremities edema and skin changes consistent with cellulitis. Venous duplex study shows no evidence of deep venous thrombosis. NT proBNP is slightly elevated. Kidney function is abnormal and consistent with her chronic kidney disease. The EKG showed atrial paced rhythm with no significant changes. The rest of the blood work overall came in to be unremarkable with the patient was started on Lasix IV which I would agree on. 3/ Patient states that she is breathing better today not improved enough to go home. She continues to have bilateral lower extremity edema. This morning she was off oxygen and pulse ox was 84% on room air and then placed on 3 L nasal cannula with pulse ox of 93%. Patient does not have home oxygen therapy. She has been maintained on IV Lasix 40 mg every 8 hours. She has a negative fluid balance of 600 mL this morning. No weights available. Repeat blood work re veals BUN 21 creatinine 1.2. Sodium 143, potassium 4. Physical Examination Gen: This is a 87-year-old female in no acute distress HEENT: Head is atraumatic, normocephalic. Pupils equal, round. Sclerae is anicteric. LUNGS: Clear to auscultation. No wheezes or rhonchi. No intercostal retractions. HEART: Regular rate and rhythm. EXTREMITIES: Bilateral lower extremity edema. No calf tenderness. Assessment Heart failure with evidence of right and left failure Lower extremity cellulitis Permanent pacemaker implantation and status post generator change Paroxysmal atrial fibrillation Valvular heart disease Multiple comorbid conditions Plan Continue IV Lasix 40 mg every 8 hours Monitor the kidney function and electrolytes No need to repeat the echocardiogram at this point in the light of recent echo from April 2023 Follow-up with the patient Continue oral anticoagulation Nurse practitioner note has been reviewed, I agree with documented findings and plan of care. Patient was seen and examined. Objective - Vital Signs Vital signs: Vital Signs Temp 98.1 F 08/02/23 02:00 Pulse 60 08/02/23 02:00 Resp 16 08/02/23 02:00 BP 119/58 08/02/23 02:00 Pulse Ox 93 L 08/02/23 02:00 FiO2 Intake & Output 08/01/23 08/02/23 08/02/23 18:59 06:59 18:59 Intake Total 500 Output Total 1100 Balance -600 Intake: Oral 500 Output: Urine 1100 Other: # Voids 1 - Labs CBC & Chem 7: 08/01/23 08:00 08/02/23 08:16 Labs: Microbiology - Last 24 Hours (Table) 07/31/23 09:37 Blood Culture - Preliminary Blood 07/31/23 09:42 Blood Culture - Preliminary Blood
[2023-08-02] MEDS: NYSTATIN 100,000 UNIT/GM POWD 15 GM TOPICAL SCH (14:45)
[2023-08-02] MEDS ORDERED: CEFAZOLIN IVPB SCH (16:00)
[2023-08-02] MEDS ORDERED: DEXTROSE IVPB SCH (16:00)
[2023-08-02] MEDS ORDERED: WATER IVPB SCH (16:00)
[2023-08-02] MEDS: traMADol 50 MG TAB PO PRN (16:56)
[2023-08-03] MEDS: CALAMINE/ZINC OXIDE LOTION 177 ML BTL TOPICAL PRN (10:03)
[2023-08-03 11:18] LABS: Anisocytosis Slight; Basophils % (A) 0 %; Eosinophils # (A) 0.3 k/uL (0-0.7); Eosinophils % (A) 6 %; HGB 10.8 gm/dL (11.4-16.0); Hypochromasia Marked; Lymphocytes # (A) 1.2 k/uL (1.0-4.8); Lymphocytes % (A) 27 %; MCH 29.5 pg (25.0-35.0); MCV 98.2 fL (80.0-100.0); Macrocytosis Slight; Mean Platelet Volume 8.1; Monocytes # (A) 0.4 k/uL (0-1.0); Monocytes % (A) 9 %; Neutrophils # (A) 2.5 k/uL (1.3-7.7); Neutrophils % (A) 54 %; Platelet Count 188 k/uL (150-450); RBC 3.67 m/uL (3.80-5.40); RDW 17.9 % (11.5-15.5); WBC 4.6 k/uL (3.8-10.6)
--- NOTE | 2023-08-03 12:00 | P.PN ---
Subjective Progress Note Date: 08/03/23 Chief complaint: Shortness of breath and bilateral lower extremities edema History of present illness: This is a very pleasant 87-year-old female patient who is known to our service from before with a past medical history significant for heart failure with preserved ejection fraction and paroxysmal atrial fibrillation and hypertension and dyslipidemia and permanent pacemaker and valvular heart disease and pulmonary hypertension. The patient currently is residing at [facility]. She was brought to the hospital by her family with increasing shortness of breath started about a week ago after she underwent generator change for her pacemaker. Beside that she was experiencing progressive bilateral lower extremities edema. No pain in the chest. No dizziness or lightheadedness and no feeling of heart racing or fluttering and no presyncope or syncope. Clearly she was hypoxic when she was brought to the hospital on room air. She was also found to have severe bilateral lower extremity cellulitis. The patient was on oral diuretics as an outpatient. She was seen by our service back in April 2023 where she underwent an echo which revealed normal LV systolic function with moderate mitral regurgitation and moderate pulmonary hypertension and moderate tricuspid regurgitation. On examination she has severe bilateral lower extremities edema and skin changes consistent with cellulitis. Venous duplex study shows no evidence of deep venous thrombosis. NT proBNP is slightly elevated. Kidney function is abnormal and consistent with her chronic kidney disease. The EKG showed atrial paced rhythm with no significant changes. The rest of the blood work overall came in to be unremarkable with the patient was started on Lasix IV which I would agree on. 08/01 Patient states that she is breathing better today not improved enough to go home. She continues to have bilateral lower extremity edema. This morning she was off oxygen and pulse ox was 84% on room air and then placed on 3 L nasal cannula with pulse ox of 93%. Patient does not have home oxygen therapy. She has been maintained on IV Lasix 40 mg every 8 hours. She has a negative fluid balance of 600 mL this morning. No weights available. Repeat blood work rev eals BUN 21 creatinine 1.2. Sodium 143, potassium 4. 08/02 Patient has been maintained on IV Lasix 40 mg every 8 hours. Heart rate is in the 60s, blood pressure 116/63, pulse ox 96% on 3 L nasal cannula and dropped down to 84% on room air. No repeat blood work available at the time of this dictation. Patient feels lower extremity edema is improving. Physical Examination Gen: This is a 87-year-old female in no acute distress HEENT: Head is atraumatic, normocephalic. Pupils equal, round. Sclerae is anicteric. LUNGS: Clear to auscultation. No wheezes or rhonchi. No intercostal retractions. HEART: Regular rate and rhythm. EXTREMITIES: Bilateral lower extremity edema with Erasto wraps. No calf tenderness. Assessment Heart failure with evidence of right and left failure Lower extremity cellulitis Permanent pacemaker implantation and status post generator change Paroxysmal atrial fibrillation Valvular heart disease Multiple comorbid conditions Plan Continue IV Lasix 40 mg but decrease frequency to every 12 hours Monitor the kidney function and electrolytes No need to repeat the echocardiogram at this point in the light of recent echo from April 2023 Follow-up with the patient Continue oral anticoagulation with Xarelto Nurse practitioner note has been reviewed, I agree with documented findings and plan of care. Patient was seen and examined. Objective - Vital Signs Vital signs: Vital Signs Temp 97.4 F L 08/03/23 07:00 Pulse 62 08/03/23 07:00 Resp 16 08/03/23 07:00 BP 116/63 08/03/23 07:00 Pulse Ox 84 L 08/03/23 08:02 FiO2 Intake & Output 08/02/23 08/03/23 08/03/23 18:59 06:59 18:59 Intake Total 236 200 Output Total 650 Balance 236 -650 200 Weight 81.647 kg Intake: Oral 236 200 Output: Urine 650 Other: Voiding Method Bedside Commode Bedside Commode Incontinent Incontinent External Catheter External Catheter # Voids 1 - Labs CBC & Chem 7: 08/03/23 10:39 08/02/23 08:16 Labs: Microbiology - Last 24 Hours (Table) 07/31/23 09:37 Blood Culture - Preliminary Blood 07/31/23 09:42 Blood Culture - Preliminary Blood
--- NOTE | 2023-08-03 12:22 | P.PN ---
Subjective Progress Note Date: 08/02/23 Principal diagnosis: Reason for follow-up is bilateral lower extremity cellulitis Patient is a 87-year-old female with a past medical history significant for hypertension hyperlipidemia COPD heart failure with atrial fibrillation presenting to the hospital for evaluation of increasing swelling to bilateral lower extremity with associated redness and some itching, patient has been diagnosed with bilateral lower extremity cellulitis and admitted to the hospital. On today's visit that is 08/02/2023, Patient is afebrile patient is currently on 3 L nasal cannula oxygen and is breathing more comfortably, the patient denies any chest pain or cough, the patient denies any nausea vomiting did not have any abdominal pain and no diarrhea, the patient still complaining of itching to bilateral lower extremity. Patient did have white count of 5.5 as of yesterday no CBC was done today creatinine is 1.20 Objective - Vital Signs Vital signs: Vital Signs Temp 97.5 F L 08/02/23 07:35 Pulse 63 08/02/23 07:35 Resp 15 08/02/23 07:35 BP 109/67 08/02/23 07:35 Pulse Ox 93 L 08/02/23 07:35 FiO2 Intake & Output 08/01/23 08/02/23 08/02/23 18:59 06:59 18:59 Intake Total 500 118 Output Total 1100 Balance -600 118 Intake: Oral 500 118 Output: Urine 1100 Other: # Voids 1 - Exam GENERAL DESCRIPTION: An elderly female lying in bed in no distress RESPIRATORY SYSTEM: Unlabored breathing , decreased breath sounds at bases HEART: S1 S2 regular rate and rhythm , ABDOMEN: Soft , no tenderness EXTREMITIES: Bilateral legs are currently wrapped in Erasto wrap - Labs CBC & Chem 7: 08/03/23 10:39 08/02/23 08:16 Labs: Abnormal Lab Results - Last 24 Hours (Table) 08/02/23 Range/Units 08:16 Carbon Dioxide 35 H (22-30) mmol/L BUN 21 H (7-17) mg/dL Creatinine 1.20 H (0.52-1.04) mg/dL Glucose 119 H (74-99) mg/dL Microbiology - Last 24 Hours (Table) 07/31/23 09:37 Blood Culture - Preliminary Blood 07/31/23 09:42 Blood Culture - Preliminary Blood Assessment and Plan (1) Bilateral lower leg cellulitis Current Visit: Yes Status: Acute Code(s): L03.116 - CELLULITIS OF LEFT LOWER LIMB; L03.115 - CELLULITIS OF RIGHT LOWER LIMB SNOMED Code(s): 533557529 Plan: 1patient presented to hospital with increasing bilateral lower extremity swelling also with increasing shortness of breath in this patient who did have evidence of fluid overload and a component of bilateral lower extremity cellulitis likely from gram-positive skin michael 2-patient with a mild renal insufficiency 3-patient to continue with cefazolin, we will apply calamine lotion to the itching rash for comfort and monitor clinical course closely Dictation was produced using [employer] dictation software. please excuse any grammatical, word or spelling errors. Time with Patient: Less than 30
--- NOTE | 2023-08-03 12:23 | P.PN ---
Subjective Progress Note Date: 08/03/23 Principal diagnosis: Reason for follow-up is bilateral lower extremity cellulitis Patient is a 87-year-old female with a past medical history significant for hypertension hyperlipidemia COPD heart failure with atrial fibrillation presenting to the hospital for evaluation of increasing swelling to bilateral lower extremity with associated redness and some itching, patient has been diagnosed with bilateral lower extremity cellulitis and admitted to the hospital. On today's visit that is 08/03/2023,the patient denies any fever or any chills, patient is breathing comfortably on 3 L nasal cannula oxygen, the patient denies chest pain or significant cough, patient denies abdominal pain, no nausea vomiting or diarrhea, lower extremity discomfort itching has decreased in intensity Patient had white count of 4.6, creatinine was 1.2 yesterday blood culture so far negative Objective - Vital Signs Vital signs: Vital Signs Temp 97.4 F L 08/03/23 07:00 Pulse 62 08/03/23 07:00 Resp 16 08/03/23 07:00 BP 116/63 08/03/23 07:00 Pulse Ox 94 L 08/03/23 10:42 FiO2 Intake & Output 08/02/23 08/03/23 08/03/23 18:59 06:59 18:59 Intake Total 236 200 Output Total 650 Balance 236 -650 200 Weight 81.647 kg 82.4 kg Intake: Oral 236 200 Output: Urine 650 Other: Voiding Method Bedside Commode Bedside Commode Incontinent Incontinent External Catheter External Catheter # Voids 1 - Exam GENERAL DESCRIPTION: An elderly female lying in bed in no distress RESPIRATORY SYSTEM: Unlabored breathing , decreased breath sounds at bases HEART: S1 S2 regular rate and rhythm , ABDOMEN: Soft , no tenderness EXTREMITIES: Bilateral legs are currently wrapped in Erasto wrap - Labs CBC & Chem 7: 08/03/23 10:39 08/02/23 08:16 Labs: Abnormal Lab Results - Last 24 Hours (Table) 08/03/23 Range/Units 10:39 RBC 3.67 L (3.80-5.40) m/uL Hgb 10.8 L (11.4-16.0) gm/dL MCHC 30.0 L (31.0-37.0) g/dL RDW 17.9 H (11.5-15.5) % Microbiology - Last 24 Hours (Table) 07/31/23 09:37 Blood Culture - Preliminary Blood 07/31/23 09:42 Blood Culture - Preliminary Blood Assessment and Plan (1) Bilateral lower leg cellulitis Current Visit: Yes Status: Acute Code(s): L03.116 - CELLULITIS OF LEFT LOWER LIMB; L03.115 - CELLULITIS OF RIGHT LOWER LIMB SNOMED Code(s): 649451823 Plan: 1patient presented to hospital with increasing bilateral lower extremity swelling also with increasing shortness of breath in this patient who did have evidence of fluid overload and a component of bilateral lower extremity cell ulitis likely from gram-positive skin michael 2-patient seem to have some clinical improvement and will continue with cefazolin, calamine lotion to the itching rash along with Erasto wrap for compression and monitor clinical course closely Dictation was produced using [employer] dictation software. please excuse any grammatical, word or spelling errors. Time with Patient: Less than 30
--- NOTE | 2023-08-03 14:08 | P.PN ---
Subjective This is a pleasant 87 years old female with past medical history of chronic kidney disease stage III, pulmonary hypertension, valvular heart disease. She went to see her steeping press tender Dr. Boss who changed her pacemaker last Wednesday. Same day she started having bilateral leg swelling and tenderness which got worse and yesterday she has some blisters ruptured so she decided to come to emergency room She complaining from exertional dyspnea but no chest pain. No coughing. No change in urine or bowel habits. She walks little bit using her walker but she denies weakness numbness headache or dizziness. She denies using new medication She denies smoking alcohol or illicit drugs She is mildly tachypneic but rest of vitals are stable and she is afebrile WBC is normal as well as the rest of CBC. WBC is 5.1 BMP is unremarkable. Creatinine 1.3 which is at baseline. Baseline creatinine 1.3-1.728. Liver function enzymes not elevated EKG showing atrial paced rhythm Chest x-ray showing cardiomegaly with mild vascular pulmonary congestion susp icious for CHF Her ejection fraction from 05/10/2023 showing 55 to 60% and also she has some moderate mitral regurgitation and tricuspid regurgitation and pulmonary hypertension 08/01/2023 Patient awake alert Lying in bed not in distress Her both legs are still swollen with slightly better than yesterday and the redness also shown some improvement while she is on cefazolin Potassium 3.4 and replacement protocol order placed Also I consulted infectious disease team for further care and management. Repeat labs in the morning 08/02/2023 Patient improving and doing well Breathing stable and is improving Leg cellulitis is improving as well, legs are wrapped With Erasto bandage Possible discharge in 24 to 48 hours if she gets improvement however patient needs to be evaluated for possible rehab given her old age and being on Xarelto as well while having this significant cellulitis and heart problem 08/03/2023 Patient feels much improved, she is awake and alert She denies any specific complaint Bilateral leg cellulitis improvement. Patient still needs IV Lasix and IV antibiotics at least another 24 hours PT/OT recommended subacute rehab, social sciences instructor consulted Possible discharge in 24 to 48 hours to rehab at [facility] Objective - Vital Signs Vital signs: Vital Signs Temp 97.4 F L 08/03/23 13:55 Pulse 60 08/03/23 13:55 Resp 17 08/03/23 13:55 BP 106/67 08/03/23 13:55 Pulse Ox 95 08/03/23 13:55 FiO2 Intake & Output 08/02/23 08/03/23 08/03/23 18:59 06:59 18:59 Intake Total 236 320 Output Total 650 Balance 236 -650 320 Weight 81.647 kg 82.4 kg Intake: Oral 236 320 Output: Urine 650 Other: Voiding Method Bedside Commode Bedside Commode Incontinent Incontinent External Catheter External Catheter # Voids 1 - Exam GENERAL: The patient is alert and oriented x3, not in any acute distress. Well developed, well nourished. HEENT: Pupils are round and equally reacting to light. EOMI. No scleral icterus. No conjunctival pallor. Normocephalic, atraumatic. No pharyngeal erythema. No thyromegaly. CARDIOVASCULAR: S1 and S2 present. No murmurs, rubs, or gallops. PULMONARY: Chest is clear to auscultation, no wheezing , no crackles. ABDOMEN: Soft, nontender, nondistended, normoactive bowel sounds. No palpable organomegaly. MUSCULOSKELETAL: No joint swelling or deformity. EXTREMITIES: No cyanosis, clubbing, bilateral leg swelling 3+ and bilateral erythema which looks symmetry, and satellite erythema above the knee. She has some superficial ruptured blisters with no significant wheezing. They are tender NEUROLOGICAL: Gross neurological examination did not reveal any focal deficits. SKIN: No rashes. no petechiae. - Labs CBC & Chem 7: 08/03/23 10:39 08/02/23 08:16 Labs: Abnormal Lab Results - Last 24 Hours (Table) 08/03/23 Range/Units 10:39 RBC 3.67 L (3.80-5.40) m/uL Hgb 10.8 L (11.4-16.0) gm/dL MCHC 30.0 L (31.0-37.0) g/dL RDW 17.9 H (11.5-15.5) % Microbiology - Last 24 Hours (Table) 07/31/23 09:37 Blood Culture - Preliminary Blood 07/31/23 09:42 Blood Culture - Preliminary Blood Assessment and Plan Assessment: Bilateral acute cellulitis Bilateral pitting leg edema and basilar palpitations suspicious for acute on chronic diastolic CHF, ejection fraction 55 to 60% Mild to moderate mitral regurgitation and moderate tricuspid regurgitation Chronic kidney disease stage III Pulmonary hypertension Plan: Continue with cefazolin Continue with IV Lasix 40 mg every 8 hours Monitor potassium and magnesium and replace accordingly Infectious disease consult Cardiology consult Counseled about fluid restriction Labs and medication were reviewed.. Continue same treatment. Continue with symptomatic treatment. Resume home medication. Monitor labs and vitals. DVT and GI prophylaxis. Further recommendations as per clinical course of the patient DVT prophylaxis: Subcutaneous heparin GI Prophylaxis: Pepcid PT/OT: Pending Prognosis is guarded
[2023-08-03 14:27] VITALS: BMI 34.3
[2023-08-03] MEDS: FUROSEMIDE 10 MG/ML 4 ML VIAL IV SCH (20:28)
--- NOTE | 2023-08-04 13:17 | P.PN ---
Subjective Progress Note Date: 08/04/23 Chief complaint: Shortness of breath and bilateral lower extremities edema History of present illness: This is a very pleasant 87-year-old female patient who is known to our service from before with a past medical history significant for heart failure with preserved ejection fraction and paroxysmal atrial fibrillation and hypertension and dyslipidemia and permanent pacemaker and valvular heart disease and pulmonary hypertension. The patient currently is residing at [facility]. She was brought to the hospital by her family with increasing shortness of breath started about a week ago after she underwent generator change for her pacemaker. Beside that she was experiencing progressive bilateral lower extremities edema. No pain in the chest. No dizziness or lightheadedness and no feeling of heart racing or fluttering and no presyncope or syncope. Clearly she was hypoxic when she was brought to the hospital on room air. She was also found to have severe bilateral lower extremity cellulitis. The patient was on oral diuretics as an outpatient. She was seen by our service back in April 2023 where she underwent an echo which revealed normal LV systolic function with moderate mitral regurgitation and moderate pulmonary hypertension and moderate tricuspid regurgitation. On examination she has severe bilateral lower extremities edema and skin changes consistent with cellulitis. Venous duplex study shows no evidence of deep venous thrombosis. NT proBNP is slightly elevated. Kidney function is abnormal and consistent with her chronic kidney disease. The EKG showed atrial paced rhythm with no significant changes. The rest of the blood work overall came in to be unremarkable with the patient was started on Lasix IV which I would agree on. 08/01 Patient states that she is breathing better today not improved enough to go home. She continues to have bilateral lower extremity edema. This morning she was off oxygen and pulse ox was 84% on room air and then placed on 3 L nasal cannula with pulse ox of 93%. Patient does not have home oxygen therapy. She has been maintained on IV Lasix 40 mg every 8 hours. She has a negative fluid balance of 600 mL this morning. No weights available. Repeat blood work rev eals BUN 21 creatinine 1.2. Sodium 143, potassium 4. 08/02 Patient has been maintained on IV Lasix 40 mg every 8 hours. Heart rate is in the 60s, blood pressure 116/63, pulse ox 96% on 3 L nasal cannula and dropped down to 84% on room air. No repeat blood work available at the time of this dictation. Patient feels lower extremity edema is improving. 08/03 Patient is maintained on IV Lasix 40 mg every 12 hours. JAMEL and daily weights do not appear to be accurate. No repeat lab work available this morning. Telemetry is atrial pacing. Patient continues to have shortness of breath with minimal exertion, cough with nonproductive. Physical Examination Gen: This is a 87-year-old female in no acute distress HEENT: Head is atraumatic, normocephalic. Pupils equal, round. Sclerae is anicteric. LUNGS: Clear to auscultation. No wheezes or rhonchi. No intercostal retractions. HEART: Regular rate and rhythm. EXTREMITIES: Bilateral lower extremity edema with Erasto wraps. No calf tenderness. Assessment Acute on chronic heart failure with evidence of right and left failure Lower extremity cellulitis Permanent pacemaker implantation and status post generator change Paroxysmal atrial fibrillation Valvular heart disease Multiple comorbid conditions Plan Continue IV Lasix 40 mg every 12 hours Monitor the kidney function and electrolytes No need to repeat the echocardiogram at this point in the light of recent echo from April 2023 Follow-up with the patient Continue oral anticoagulation with Xarelto Nurse practitioner note has been reviewed, I agree with documented findings and plan of care. Patient was seen and examined. Objective - Vital Signs Vital signs: Vital Signs Temp 98.1 F 08/04/23 07:00 Pulse 60 08/04/23 07:00 Resp 17 08/04/23 07:00 BP 118/65 08/04/23 07:00 Pulse Ox 98 08/04/23 07:50 FiO2 Intake & Output 08/03/23 08/04/23 08/04/23 18:59 06:59 18:59 Intake Total 760 240 Output Total 350 350 Balance 410 -350 240 Weight 82.4 kg 84.1 kg Intake: Oral 760 240 Output: Urine 350 350 Other: Voiding Method Bedside Commode Bedside Commode Bedside Commode Incontinent Incontinent Incontinent External Catheter External Catheter External Catheter - Labs CBC & Chem 7: 08/03/23 10:39 08/02/23 08:16 Labs: Microbiology - Last 24 Hours (Table) 07/31/23 09:37 Blood Culture - Preliminary Blood 07/31/23 09:42 Blood Culture - Preliminary Blood
[2023-08-04 15:39] VITALS: RESP 18
--- NOTE | 2023-08-04 19:19 | P.PN ---
Subjective This is a pleasant 87 years old female with past medical history of chronic kidney disease stage III, pulmonary hypertension, valvular heart disease. She went to see her reinforcing steel erector Dr. Boss who changed her pacemaker last Wednesday. Same day she started having bilateral leg swelling and tenderness which got worse and yesterday she has some blisters ruptured so she decided to come to emergency room She complaining from exertional dyspnea but no chest pain. No coughing. No change in urine or bowel habits. She walks little bit using her walker but she denies weakness numbness headache or dizziness. She denies using new medication She denies smoking alcohol or illicit drugs She is mildly tachypneic but rest of vitals are stable and she is afebrile WBC is normal as well as the rest of CBC. WBC is 5.1 BMP is unremarkable. Creatinine 1.3 which is at baseline. Baseline creatinine 1.3-1.728. Liver function enzymes not elevated EKG showing atrial paced rhythm Chest x-ray showing cardiomegaly with mild vascular pulmonary congestion susp icious for CHF Her ejection fraction from 05/10/2023 showing 55 to 60% and also she has some moderate mitral regurgitation and tricuspid regurgitation and pulmonary hypertension 08/01/2023 Patient awake alert Lying in bed not in distress Her both legs are still swollen with slightly better than yesterday and the redness also shown some improvement while she is on cefazolin Potassium 3.4 and replacement protocol order placed Also I consulted infectious disease team for further care and management. Repeat labs in the morning 08/02/2023 Patient improving and doing well Breathing stable and is improving Leg cellulitis is improving as well, legs are wrapped With Erasto bandage Possible discharge in 24 to 48 hours if she gets improvement however patient needs to be evaluated for possible rehab given her old age and being on Xarelto as well while having this significant cellulitis and heart problem 08/03/2023 Patient feels much improved, she is awake and alert She denies any specific complaint Bilateral leg cellulitis improvement. Patient still needs IV Lasix and IV antibiotics at least another 24 hours PT/OT recommended subacute rehab, social insurance analyst consulted Possible discharge in 24 to 48 hours to rehab at [facility] 08/04/2023 . Patient up in bed asymptomatic no chest pain or dyspnea Bilateral leg cellulitis and swelling improving slowly and gradually She continued on IV Lasix but lower frequency down to 12-hour. Continue with cefazolin PT recommends subacute rehab, social insurance analyst consulted. Objective - Vital Signs Vital signs: Vital Signs Temp 98.1 F 08/04/23 07:00 Pulse 60 08/04/23 07:00 Resp 17 08/04/23 07:00 BP 118/65 08/04/23 07:00 Pulse Ox 98 08/04/23 07:50 FiO2 Intake & Output 08/03/23 08/04/23 08/04/23 18:59 06:59 18:59 Intake Total 760 358 Output Total 350 350 Balance 410 -350 358 Weight 82.4 kg 84.1 kg Intake: Oral 760 358 Output: Urine 350 350 Other: Voiding Method Bedside Commode Bedside Commode Bedside Commode Incontinent Incontinent Incontinent External Catheter External Catheter External Catheter - Exam GENERAL: The patient is alert and oriented x3, not in any acute distress. Well developed, well nourished. HEENT: Pupils are round and equally reacting to light. EOMI. No scleral icterus. No conjunctival pallor. Normocephalic, atraumatic. No pharyngeal erythema. No thyromegaly. CARDIOVASCULAR: S1 and S2 present. No murmurs, rubs, or gallops. PULMONARY: Chest is clear to auscultation, no wheezing , no crackles. ABDOMEN: Soft, nontender, nondistended, normoactive bowel sounds. No palpable organomegaly. MUSCULOSKELETAL: No joint swelling or deformity. EXTREMITIES: No cyanosis, clubbing, bilateral leg swelling 3+ and bilateral erythema which looks symmetry, and satellite erythema above the knee. She has some superficial ruptured blisters with no significant wheezing. They are tender NEUROLOGICAL: Gross neurological examination did not reveal any focal deficits. SKIN: No rashes. no petechiae. - Labs CBC & Chem 7: 08/03/23 10:39 08/02/23 08:16 Labs: Microbiology - Last 24 Hours (Table) 07/31/23 09:37 Blood Culture - Preliminary Blood 07/31/23 09:42 Blood Culture - Preliminary Blood Assessment and Plan Assessment: Bilateral acute cellulitis Bilateral pitting leg edema and basilar palpitations suspicious for acute on chronic diastolic CHF, ejection fraction 55 to 60% Mild to moderate mitral regurgitation and moderate tricuspid regurgitation Chronic kidney disease stage III Pulmonary hypertension Plan: Continue with cefazolin Continue with IV Lasix 40 mg every 12 hours Monitor potassium and magnesium and replace accordingly Infectious disease consult Cardiology consult Counseled about fluid restriction Labs and medication were reviewed.. Continue same treatment. Continue with symptomatic treatment. Resume home medication. Monitor labs and vitals. DVT and GI prophylaxis. Further recommendations as per clinical course of the patient DVT prophylaxis: Subcutaneous heparin GI Prophylaxis: Pepcid PT/OT: Pending Prognosis is guarded
[2023-08-04 21:58] VITALS: PULSE 60
[2023-08-05 07:49] LABS: African American GFR (CKD) 45 (>60 ml/min/1.73 sqM); Anion Gap 2 mmol/L; Blood Urea Nitrogen 19 mg/dL (7-17); Calcium 8.7 mg/dL (8.4-10.2); Carbon Dioxide 39 mmol/L (22-30); Chloride 99 mmol/L (98-107); Glucose 84 mg/dL (74-99); Non-African American GFR(CKD) 39 (>60 ml/min/1.73 sqM); Potassium 3.6 mmol/L (3.5-5.1); Sodium 140 mmol/L (137-145)
--- NOTE | 2023-08-05 09:31 | P.DS ---
Providers Date of admission: 08/01/23 14:55 Attending physician: Jaskaran Nolen MD Consults: 08/01/23 07:46 Consult Physician Routine Consulting Provider: Salvador Cotton Consult Reason/Comments: chf Do you want consulting provider notified?: Yes 08/01/23 12:06 Consult Physician Routine Consulting Provider: Soheila Calvert Consult Reason/Comments: cellulitis Do you want consulting provider notified?: Yes Primary care physician: Physician Nonstaff Hospital Course: Diagnoses: Bilateral acute cellulitis, improving Bilateral pitting leg edema and basilar palpitations suspicious for acute on chronic diastolic CHF, ejection fraction 55 to 60% Mild to moderate mitral regurgitation and moderate tricuspid regurgitation Chronic kidney disease stage III Pulmonary hypertension Hospital course: This is a pleasant 87 years old female with past medical history of chronic kidney disease stage III, pulmonary hypertension, valvular heart disease. She went to see her occupational therapy assistant Dr. Boss who changed her pacemaker last Wednesday. Same day she started having bilateral leg swelling and tenderness which got worse and yesterday she has some blisters ruptured so she decided to come to emergency room Patient was found to have bilateral lower extremity cellulitis and acute CHF exacerbation with preserved ejection fraction He was treated with cefazolin and IV Lasix 40 mg every 8 hours then every 12 hours. Patient showed interval improvement in her leg swelling and redness and cellulitis improving Patient denies any other new complaints Patient will require rehab upon discharge and she is agreeable Patient was cleared for discharge by both infectious disease and occupational therapy assistant. Patient will be discharged on oral diuretics and short course of oral antibiotics Problems and management plan were discussed with the patient and he verbalized understanding and acceptance Patient was found stable and can be discharged home in guarded prognosis however he needs follow-up as an outpatient. Patient was instructed to follow up with PCP within one week and patient agrees Patient was directed to follow-up with occupational therapy assistant Dr. Graham in 2 weeks and she agrees Physical exam Gen: patient is a AAOx3, no distress CVS: S1-S2, RRR, no murmur Lungs: B/L CTA, no wheezing Abdomen: soft, no distention, no tenderness, positive bowel sounds -Extremity: no leg induration. Bilateral leg swelling and cellulitis improving Time spent more than 35 minutes Plan - Discharge Summary Discharge Rx Participant: No New Discharge Prescriptions: No Action Levothyroxine Sodium [Synthroid] 50 mcg PO DAILY Potassium Chloride ER [K-Dur 20] 20 meq PO BID Pantoprazole [Protonix] 40 mg PO DAILY Ferrous Sulfate [Iron (65 MG Elemental)] 325 mg PO DAILY Amiodarone [Cordarone] 200 mg PO DAILY SILVER sulfADIAZINE CREAM [Silvadene Cream] 1 applic TOPICAL BID Metoprolol Succinate (ER) [Toprol Xl] 50 mg PO BID Rivaroxaban [Xarelto] 15 mg PO DAILY allopurinoL [Zyloprim] 100 mg PO DAILY Atorvastatin [Lipitor] 40 mg PO HS Torsemide [Demadex] 40 mg PO DAILY Discharge Medication List Levothyroxine Sodium [Synthroid] 50 mcg PO DAILY 11/07/14 [History] Potassium Chloride ER [K-Dur 20] 20 meq PO BID 03/06/19 [History] Rivaroxaban [Xarelto] 15 mg PO DAILY 07/23/21 [History] allopurinoL [Zyloprim] 100 mg PO DAILY 05/04/23 [History] Atorvastatin [Lipitor] 40 mg PO HS 05/10/23 [History] Amiodarone [Cordarone] 200 mg PO DAILY 07/16/23 [History] Ferrous Sulfate [Iron (65 MG Elemental)] 325 mg PO DAILY 07/16/23 [History] Pantoprazole [Protonix] 40 mg PO DAILY 07/16/23 [History] Metoprolol Succinate (ER) [Toprol Xl] 50 mg PO BID 07/31/23 [History] SILVER sulfADIAZINE CREAM [Silvadene Cream] 1 applic TOPICAL BID 07/31/23 [History] Torsemide [Demadex] 40 mg PO DAILY 07/31/23 [History] Follow up Appointment(s)/Referral(s): Nonstaff,Physician [Primary Care Provider] - 1-2 days
[2023-08-05 09:39] VITALS: TEMP 97.6
--- NOTE | 2023-08-05 11:25 | P.PN ---
Subjective Progress Note Date: 08/05/23 Chief complaint: Shortness of breath and bilateral lower extremities edema History of present illness: This is a very pleasant 87-year-old female patient who is known to our service from before with a past medical history significant for heart failure with preserved ejection fraction and paroxysmal atrial fibrillation and hypertension and dyslipidemia and permanent pacemaker and valvular heart disease and pulmonary hypertension. The patient currently is residing at [facility]. She was brought to the hospital by her family with increasing shortness of breath started about a week ago after she underwent generator change for her pacemaker. Beside that she was experiencing progressive bilateral lower extremities edema. No pain in the chest. No dizziness or lightheadedness and no feeling of heart racing or fluttering and no presyncope or syncope. Clearly she was hypoxic when she was brought to the hospital on room air. She was also found to have severe bilateral lower extremity cellulitis. The patient was on oral diuretics as an outpatient. She was seen by our service back in April 2023 where she underwent an echo which revealed normal LV systolic function with moderate mitral regurgitation and moderate pulmonary hypertension and moderate tricuspid regurgitation. On examination she has severe bilateral lower extremities edema and skin changes consistent with cellulitis. Venous duplex study shows no evidence of deep venous thrombosis. NT proBNP is slightly elevated. Kidney function is abnormal and consistent with her chronic kidney disease. The EKG showed atrial paced rhythm with no significant changes. The rest of the blood work overall came in to be unremarkable with the patient was started on Lasix IV which I would agree on. 08/01 Patient states that she is breathing better today not improved enough to go home. She continues to have bilateral lower extremity edema. This morning she was off oxygen and pulse ox was 84% on room air and then placed on 3 L nasal cannula with pulse ox of 93%. Patient does not have home oxygen therapy. She has been maintained on IV Lasix 40 mg every 8 hours. She has a negative fluid balance of 600 mL this morning. No weights available. Repeat blood work rev eals BUN 21 creatinine 1.2. Sodium 143, potassium 4. 08/02 Patient has been maintained on IV Lasix 40 mg every 8 hours. Heart rate is in the 60s, blood pressure 116/63, pulse ox 96% on 3 L nasal cannula and dropped down to 84% on room air. No repeat blood work available at the time of this dictation. Patient feels lower extremity edema is improving. 08/03 Patient is maintained on IV Lasix 40 mg every 12 hours. JAMEL and daily weights do not appear to be accurate. No repeat lab work available this morning. Telemetry is atrial pacing. Patient continues to have shortness of breath with minimal exertion, cough with nonproductive. 08/04 Patient is scheduled for discharge to [facility] today. She has remained on IV Lasix 40 mg every 12 hours. Blood pressure 101/52, heart rate 60, pulse ox 96% on 3 L nasal cannula. Patient is normally on home O2 at 2 L. Repeat blood work reveals sodium 140, potassium 3.6, BUN 19 and creatinine 1.25. Physical Examination Gen: This is a 87-year-old female in no acute distress HEENT: Head is atraumatic, normocephalic. Pupils equal, round. Sclerae is anict reinaldo. LUNGS: Clear to auscultation. No wheezes or rhonchi. No intercostal retractions. HEART: Regular rate and rhythm. EXTREMITIES: Bilateral lower extremity edema with Erasto wraps. No calf tenderne ss. Assessment Acute on chronic heart failure with evidence of right and left failure Lower extremity cellulitis Permanent pacemaker implantation and status post generator change Paroxysmal atrial fibrillation Valvular heart disease Multiple comorbid conditions Plan Transition IV Lasix to oral 40 mg twice daily Monitor the kidney function and electrolytes No need to repeat the echocardiogram at this point in the light of recent echo from April 2023 Continue oral anticoagulation with Xarelto Patient is cleared for discharge from cardiology and may follow-up in the office in 1 to 2 weeks. Nurse practitioner note has been reviewed, I agree with documented findings and plan of care. Patient was seen and examined. Objective - Vital Signs Vital signs: Vital Signs Temp 97.6 F 08/05/23 07:00 Pulse 60 08/05/23 07:00 Resp 18 08/04/23 15:00 BP 101/52 08/05/23 07:00 Pulse Ox 96 08/05/23 07:52 FiO2 Intake & Output 08/04/23 08/05/23 08/05/23 18:59 06:59 18:59 Intake Total 576 118 Output Total 350 Balance 576 -350 118 Weight 85.5 kg Intake: Oral 576 118 Output: Urine 350 Other: Voiding Method Bedside Commode Incontinent Incontinent Incontinent External Catheter External Catheter External Catheter # Voids 1 # Bowel Movements 1 - Labs CBC & Chem 7: 08/03/23 10:39 08/05/23 07:10 Labs: Abnormal Lab Results - Last 24 Hours (Table) 08/05/23 Range/Units 07:10 Carbon Dioxide 39 H (22-30) mmol/L BUN 19 H (7-17) mg/dL Creatinine 1.25 H (0.52-1.04) mg/dL
--- NOTE | 2023-08-05 11:59 | P.PN ---
Subjective Progress Note Date: 08/04/23 Principal diagnosis: Reason for follow-up is bilateral lower extremity cellulitis Patient is a 87-year-old female with a past medical history significant for hypertension hyperlipidemia COPD heart failure with atrial fibrillation presenting to the hospital for evaluation of increasing swelling to bilateral lower extremity with associated redness and some itching, patient has been diagnosed with bilateral lower extremity cellulitis and admitted to the hospital. On today's visit that is 08/04/2023,the patient remains to be afebrile, patient is on 3 L nasal cannula supplemental oxygen and denies any shortness of breath no chest pain or cough.Patient denies having any nausea or vomiting, no abdominal pain and no diarrhea has been reported, pain in addition to lower extremity has decreased in intensity Patient did have a white count of 4.6 creatinine was 1.20 yesterday Objective - Vital Signs Vital signs: Vital Signs Temp 98.1 F 08/04/23 07:00 Pulse 60 08/04/23 07:00 Resp 17 08/04/23 07:00 BP 118/65 08/04/23 07:00 Pulse Ox 98 08/04/23 07:50 FiO2 Intake & Output 08/03/23 08/04/23 08/04/23 18:59 06:59 18:59 Intake Total 760 240 Output Total 350 350 Balance 410 -350 240 Weight 82.4 kg 84.1 kg Intake: Oral 760 240 Output: Urine 350 350 Other: Voiding Method Bedside Commode Bedside Commode Bedside Commode Incontinent Incontinent Incontinent External Catheter External Catheter External Catheter - Exam GENERAL DESCRIPTION: An elderly female lying in bed in no distress RESPIRATORY SYSTEM: Unlabored breathing , decreased breath sounds at bases HEART: S1 S2 regular rate and rhythm , ABDOMEN: Soft , no tenderness EXTREMITIES: Bilateral legs are currently wrapped in Erasto wrap - Labs CBC & Chem 7: 08/03/23 10:39 08/05/23 07:10 Labs: Microbiology - Last 24 Hours (Table) 07/31/23 09:37 Blood Culture - Preliminary Blood 07/31/23 09:42 Blood Culture - Preliminary Blood Assessment and Plan (1) Bilateral lower leg cellulitis Current Visit: Yes Status: Acute Code(s): L03.116 - CELLULITIS OF LEFT LOWER LIMB; L03.115 - CELLULITIS OF RIGHT LOWER LIMB SNOMED Code(s): 220002812 Plan: 1patient presented to hospital with increasing bilateral lower extremity swelling also with increasing shortness of breath in this patient who did have evidence of fluid overload and a component of bilateral lower extremity cellulitis likely from gram-positive skin michael 2-patient slowly clinically improving as far as bilateral lower extremity cellulitis is concerned and will continue with cefazolin along with calamine lotion to the itching rash plus Erasto wrap for compression and monitor clinical course closely Dictation was produced using [email or web address] dictation software. please excuse any grammatical, word or spelling errors. Time with Patient: Less than 30
--- NOTE | 2023-08-05 12:00 | P.PN ---
Subjective Progress Note Date: 08/05/23 Principal diagnosis: Reason for follow-up is bilateral lower extremity cellulitis Patient is a 87-year-old female with a past medical history significant for hypertension hyperlipidemia COPD heart failure with atrial fibrillation presenting to the hospital for evaluation of increasing swelling to bilateral lower extremity with associated redness and some itching, patient has been diagnosed with bilateral lower extremity cellulitis and admitted to the hospital. On today's visit that is 08/05/2023, the patient continues to be afebrile, the patient is on 3 L nasal cannula oxygen and breathing comfortably, the Pt denies having any chest pain or cough, the patient denies having any abdominal pain no vomiting or any diarrhea has been reported by the nursing staff, patient mention pain and itching to the bilateral leg as well as swelling has decreased. No CBC was done today creatinine is 1.25 Objective - Vital Signs Vital signs: Vital Signs Temp 97.6 F 08/05/23 07:00 Pulse 60 08/05/23 07:00 Resp 18 08/04/23 15:00 BP 101/52 08/05/23 07:00 Pulse Ox 96 08/05/23 07:52 FiO2 Intake & Output 08/04/23 08/05/23 08/05/23 18:59 06:59 18:59 Intake Total 576 118 Output Total 350 Balance 576 -350 118 Weight 85.5 kg Intake: Oral 576 118 Output: Urine 350 Other: Voiding Method Bedside Commode Incontinent Incontinent Incontinent External Catheter External Catheter External Catheter # Voids 1 # Bowel Movements 1 - Exam GENERAL DESCRIPTION: An elderly female lying in bed in no distress RESPIRATORY SYSTEM: Unlabored breathing , decreased breath sounds at bases HEART: S1 S2 regular rate and rhythm , ABDOMEN: Soft , no tenderness EXTREMITIES: Lower extremity swelling or redness has decreased wound to the left lateral leg, no slough tissue - Labs CBC & Chem 7: 08/03/23 10:39 08/05/23 07:10 Labs: Abnormal Lab Results - Last 24 Hours (Table) 08/05/23 Range/Units 07:10 Carbon Dioxide 39 H (22-30) mmol/L BUN 19 H (7-17) mg/dL Creatinine 1.25 H (0.52-1.04) mg/dL Assessment and Plan (1) Bilateral lower leg cellulitis Current Visit: Yes Status: Acute Code(s): L03.116 - CELLULITIS OF LEFT LOWER LIMB; L03.115 - CELLULITIS OF RIGHT LOWER LIMB SNOMED Code(s): 591608548 Plan: 1patient presented to hospital with increasing bilateral lower extremity swelling also with increasing shortness of breath in this patient who did have evidence of fluid overload and a component of bilateral lower extremity indira lulitis likely from gram-positive skin michael 2-patient has shown clinical improvement as far as bilateral lower extremity cellulitis she will finish therapy with oral Keflex x 7 days continue local wo und care to the leg as ordered Dictation was produced using [employer] dictation software. please excuse any grammatical, word or spelling errors. Time with Patient: Less than 30
[2023-08-05 12:53] VITALS: BP 127/79
[2023-08-05] MEDS ORDERED: FUROSEMIDE 40 MG TAB PO SCH (16:00)
== END 2023-08-05 13:42 | DRG 602 ==
LOC: EC 09:03 → 6NMEDSUR 12:28 → 1SOBS 08-01 13:31 → OBSVTOIN 08-01 14:55
PROVIDERS: ADMIT Internal Medicine; ATTEND Internal Medicine
DX: L03.116 Cellulitis of left lower limb (principal); I50.33 Acute on chronic diastolic (congestive) heart failure; I13.0 Hypertensive heart and chronic kidney disease with heart failure and stage 1 through stage 4 chronic kidney disease, or unspecified chronic kidney disease; I27.20 Pulmonary hypertension, unspecified; I73.9 Peripheral vascular disease, unspecified; N18.30 Chronic kidney disease, stage 3 unspecified; J44.9 Chronic obstructive pulmonary disease, unspecified; I48.0 Paroxysmal atrial fibrillation; I08.1 Rheumatic disorders of both mitral and tricuspid valves; L03.115 Cellulitis of right lower limb; E78.5 Hyperlipidemia, unspecified; R09.02 Hypoxemia; L29.9 Pruritus, unspecified; I25.10 Atherosclerotic heart disease of native coronary artery without angina pectoris; Z96.642 Presence of left artificial hip joint; Z85.41 Personal history of malignant neoplasm of cervix uteri; Z87.442 Personal history of urinary calculi; I25.2 Old myocardial infarction; Z95.5 Presence of coronary angioplasty implant and graft; Z87.891 Personal history of nicotine dependence; Z79.890 Hormone replacement therapy; Z79.01 Long term (current) use of anticoagulants; Z79.899 Other long term (current) drug therapy; Z88.1 Allergy status to other antibiotic agents; Z88.5 Allergy status to narcotic agent; Z88.8 Allergy status to other drugs, medicaments and biological substances
CPT/HCPCS: 36415; 71046; 80048; 80053; 83605; 83735; 83880; 85025; 85610; 85730; 87040; 93005; 93306; 93970; 94760; 96365; 96366; 96372; 96375; 96376; 99285

== ENCOUNTER → 2023-08-20 | Outpatient (CLI) | payer MEDICARE, MEDICAID ==
[2023-08-20 17:05] LABS: Basophils # (A) 0.02 X 10*3/uL (0.00-0.10); Basophils % (A) 0.3 %; Eosinophils # (A) 0.35 X 10*3/uL (0.04-0.35); Eosinophils % (A) 5.7 %; HCT 40.1 % (37.2-46.3); HGB 11.6 g/dL (12.0-15.0); Lymphocytes # (A) 1.66 X 10*3/uL (0.90-5.00); Lymphocytes % (A) 26.9 %; MCH 28.9 pg (27.0-32.0); MCHC 28.9 g/dL (32.0-37.0); Mean Platelet Volume 10.5 FL (9.5-12.2); Monocytes # (A) 0.79 X 10*3/uL (0.20-1.00); Monocytes % (A) 12.8 %; NRBC Per 100 WBC 0 X 10*3/uL (0.00-0.01); Neutrophils # (A) 3.34 X 10*3/uL (1.80-7.70); Platelet Count 242 X 10*3/uL (140-440); RBC 4.01 X 10*6/uL (4.10-5.20); RDW 18.5 % (11.5-14.5); WBC 6.18 X 10*3/uL (4.50-10.00)
[2023-08-20 17:39] LABS: % Iron Saturation 7.14 (12.00-45.00); Ferritin 78.1 ng/mL (10.0-291.0)
== END | disposition home or self-care (01) ==
LOC: LABWHC1 11:35
PROVIDERS: ATTEND Internal Medicine Gastroenterology
DX: D62 Acute posthemorrhagic anemia (principal)
CPT/HCPCS: 36415; 82728; 83540; 83550; 85025

== ENCOUNTER 2023-08-31 09:23 | Inpatient (IN) | payer MEDICARE, MEDICAID ==
--- NOTE | 2023-08-31 10:29 | XR ---
EXAMINATION TYPE: XR knee complete RT DATE OF EXAM: 08/31/2023 COMPARISON: None HISTORY: Fall, pain TECHNIQUE: Three-view right knee FINDINGS: There is loss of joint space of the medial lateral compartments. Medial and lateral tibial plateau and femoral condylar spurring is present. Some calcification may be within the medial meniscu s. No joint effusion is evident. There is a oblique fracture of the distal diaphyseal femur. This has mild diastases IMPRESSION: 1. Distal femoral diaphyseal oblique fracture with mild diastases. 2. Moderately advanced degenerative changes right knee
--- NOTE | 2023-08-31 10:30 | XR ---
EXAMINATION TYPE: XR Hip RT and AP Pelvis DATE OF EXAM: 08/31/2023 COMPARISON: None HISTORY: Pain TECHNIQUE: 2 view right hip supplemented with AP pelvis FINDINGS: There is loss of joint space. There is erosion and some mild deformity of the femoral head and acetabulum on the right compatible with advanced degenerative changes. No acute fractures evident. There is a left hip prosthesis. Vascular calcification is present. IMPRESSION: 1. Advanced degenerative changes right hip
[2023-08-31] MEDS ORDERED: ONDANSETRON 4 MG/2 ML VIAL IVP PRN (11:21)
--- NOTE | 2023-08-31 11:21 | ED ---
Lower Extremity Injury HPI - General Chief Complaint: Extremity Injury, Lower Stated Complaint: Right hip pain Time Seen by Provider: 08/31/23 09:24 Source: patient, EMS, RN notes reviewed Mode of arrival: EMS Limitations: no limitations - History of Present Illness Initial Comments: 87 year old female presents emergency department chief complaint of right leg pain. Patient states she lost her balance falling. Patient states she has pain by her right hip and right knee. Patient states that she has severe pain unable to move her leg. Denies any head injury no loss conscious denies blood thinners. - Related Data Home Medications Medication Instructions Recorded Confirmed Levothyroxine Sodium [Synthroid] 50 mcg PO DAILY@0600 11/07/14 08/31/23 Potassium Chloride ER [K-Dur 20] 20 meq PO BID@0900,1700 03/06/19 08/31/23 Rivaroxaban [Xarelto] 15 mg PO DAILY@1700 07/23/21 08/31/23 allopurinoL [Zyloprim] 100 mg PO DAILY 05/04/23 08/31/23 Atorvastatin [Lipitor] 40 mg PO HS 05/10/23 08/31/23 Amiodarone [Cordarone] 200 mg PO DAILY 07/16/23 08/31/23 Ferrous Sulfate [Iron (65 MG 325 mg PO DAILY 07/16/23 08/31/23 Elemental)] Pantoprazole [Protonix] 40 mg PO DAILY 07/16/23 08/31/23 SILVER sulfADIAZINE CREAM 1 applic TOPICAL BID 07/31/23 08/31/23 [Silvadene Cream] Torsemide [Demadex] 40 mg PO DAILY@0600 07/31/23 08/31/23 Ammonium Lactate Lotion 1 applic TOPICAL BID@0900,1400 08/31/23 08/31/23 [Lac-Hydrin 12% Lotion] Ipratropium-Albuterol Nebulize 3 ml INHALATION RT-Q6H PRN 08/31/23 08/31/23 [Duoneb 0.5 mg-3 mg/3 ml Soln] Loratadine 10 mg PO Q8H PRN 08/31/23 08/31/23 Menthol-Zinc Oxide Oint 1 applic TOPICAL BID@0900,1700 08/31/23 08/31/23 [Calmoseptine Ointment] Metoprolol Succinate (ER) [Toprol 50 mg PO BID 08/31/23 08/31/23 Xl] Torsemide [Soaanz] 20 mg PO DAILY@1400 08/31/23 08/31/23 traMADol HCl [Ultram] 25 mg PO Q6H PRN 08/31/23 08/31/23 Allergies Allergy/AdvReac Type Severity Reaction Status Date / Time doxycycline AdvReac Nausea & Verified 08/31/23 11:19 Vomiting & Diarrhea hydromorphone [From Dilaudid] AdvReac Nausea & Verified 08/31/23 11:19 Vomiting lorazepam [From Ativan] AdvReac Hallucinati Verified 08/31/23 11:19 ons Review of Systems ROS Statement: Those systems with pertinent positive or pertinent negative responses have been documented in the HPI. ROS Other: All systems not noted in ROS Statement are negative. Past Medical History Past Medical History: Atrial Fibrillation, Atrial Flutter, Coronary Artery Disease (CAD), Cancer, Heart Failure, COPD, Hyperlipidemia, Hypertension, Liver Disease, Thyroid Disorder, Vascular Disorder Additional Past Medical History / Comment(s): hx Kidney Stones, Chronic N/T BILAT LEGS, WITH BLE EDEMA, states has had lymphedema with weeping valeria lower legs, degenerative arthritis, hx hepatitis C, hx cervical cancer, PVD Last Myocardial Infarction Date:: 2009 History of Any Multi-Drug Resistant Organisms: VRE Date of last positivie culture/infection: 01/14/21 MDRO Source:: VRE URINE Past Surgical History: Appendectomy, Cholecystectomy, Heart Catheterization With Stent, Hysterectomy, Joint Replacement, Pacemaker Additional Past Surgical History / Comment(s): valeria lower ext vascular repairs,2--17 abd. aortogram, ERCP, 4 cardiac stents, left hip replacement Past Anesthesia/Blood Transfusion Reactions: Family History of Problems w/ Anesthesia Additional Past Anesthesia/Blood Transfusion Reaction / Comment(s): sister-long time to come out Date of Last Stent Placement:: 2010? Type of Cardiac Device: Permanent Pacemaker Device Placement Date:: 2023 replaced Past Psychological History: No Psychological Hx Reported Smoking Status: Former smoker Past Alcohol Use History: None Reported Past Drug Use History: None Reported - Past Family History Son(s) Family Medical History: Cancer Additional Family Medical History / Comment(s): Patient has 3 sons and one has been diagnosed with bladder cancer. Brother(s) Family Medical History: Cancer Additional Family Medical History / Comment(s): Patient has 2 brothers and one was diagnosed with esophageal cancer with metastatic disease. Daughter(s) Family Medical History: Cancer, Deep Vein Thrombosis (DVT) Additional Family Medical History / Comment(s): One daughter had Leukemia, another daughter had DVT's, had 4 joint replacements. General Exam Limitations: no limitations General appearance: alert, in no apparent distress Head exam: Present: atraumatic, normocephalic, normal inspection Respiratory exam: Present: normal lung sounds bilaterally. Absent: respiratory distress, wheezes, rales, rhonchi, stridor Cardiovascular Exam: Present: regular rate, normal rhythm, normal heart sounds. Absent: systolic murmur, diastolic murmur, rubs, gallop, clicks GI/Abdominal exam: Present: soft, normal bowel sounds. Absent: distended, tenderness, guarding, rebound, rigid Extremities exam: Present: other (Tenderness for the right hip, mid to distal femur neurovascular intact) Course Vital Signs 08/31/23 09:45 Pulse Rate 87 Respiratory 18 Rate Blood Pressure 153/76 O2 Sat by Pulse 92 L Oximetry Medical Decision Making - Medical Decision Making Was pt. sent in by a medical professional or institution (, PA, COVER INSPECTOR, urgent care, hospital, or senior living...) When possible be specific @ -No Did you speak to anyone other than the patient for history (EMS, parent, family, police, friend...)? What history was obtained from this source @ -No Did you review nursing and triage notes (agree or disagree)? Why? @ -I reviewed and agree with nursing and triage notes Were old charts reviewed (outside hosp., previous admission, EMS record, old EKG, old radiological studies, urgent care reports/EKG's, senior living records)? Report findings @ -No old charts were reviewed Differential Diagnosis (chest pain, altered mental status, abdominal pain women, abdominal pain men, vaginal bleeding, weakness, fever, dyspnea, syncope, headache, dizziness, GI bleed, back pain, seizure, CVA, palpatations, mental health, musculoskeletal)? @ -Fall, hip fracture, leg fracture EKG interpreted by me (3pts min.). @ -As above X-rays interpreted by me (1pt min.). @ -X RA right hip AP pelvis no acute fracture X-ray right knee showing distal femur fracture mild displacement X-ray chest 1 view no acute process CT interpreted by me (1pt min.). @ -None done U/S interpreted by me (1pt. min.). @ -None done What testing was considered but not performed or refused? (CT, X-rays, U/S, labs)? Why? @ -None What meds were considered but not given or refused? Why? @ -None Did you discuss the management of the patient with other professionals (professionals i.e. , PA, COVER INSPECTOR, lab, RT, psych nurse, social science professor, jack spinner, teacher, workplace rehabilitation officer, heel caser)? Give summary @ -The case with Jonathan on-call for orthopedics accepts admission for Dr. Horner will have medicine and cardiology consult Was smoking cessation discussed for >3mins.? @ -No Was critical care preformed (if so, how long)? @ -No Were there social determinants of health that impacted care today? How? (H omelessness, low income, unemployed, alcoholism, drug addiction, transportation, low edu. Level, literacy, decrease access to med. care, longterm, rehab)? @ -No Was there de-escalation of care discussed even if they declined (Discuss DNR or withdrawal of care, Hospice)? DNR status @ -No What co-morbidities impacted this encounter? (DM, HTN, Smoking, COPD, CAD, Cancer, CVA, ARF, Chemo, Hep., AIDS, mental health diagnosis, sleep apnea, morbid obesity)? @ -CAD, CHF Was patient admitted / discharged? Hospital course, mention meds given and route, prescriptions, significant lab abnormalities, going to OR and other pertinent info. @ -Admitted patient has a right distal femur fracture patient requires surgical clearance by cardiology and hospitalist. Patient provided oral analgesics that she did not want IV analgesics. Patient did have labs, EKG and x-rays ordered. Undiagnosed new problem with uncertain prognosis? @ -No Drug Therapy requiring intensive monitoring for toxicity (Heparin, Nitro, I nsulin, Cardizem)? @ -No Were any procedures done? @ -No Diagnosis/symptom? @ -Right distal femur fracture Acute, or Chronic, or Acute on Chronic? @ -Acute Uncomplicated (without systemic symptoms) or Complicated (systemic symptoms)? @ -Complicated Side effects of treatment? @ -No Exacerbation, Progression, or Severe Exacerbation? @ -No Poses a threat to life or bodily function? How? (Chest pain, [place], [place], pneumonia, PE, COPD, DKA, ARF, appy, cholecystitis, CVA, Diverticulitis, Homicidal, Suicida l, threat to staff... and all critical care pts) @ -Yes surgical risk - Lab Data Result diagrams: 08/31/23 11:13 08/31/23 11:13 Lab Results 08/31/23 08/31/23 08/31/23 Range/Units 11:13 11:13 11:13 WBC 11.5 H (3.8-10.6) k/uL RBC 4.34 (3.80-5.40) m/uL Hgb 12.8 (11.4-16.0) gm/dL Hct 42.0 (34.0-46.0) % MCV 96.7 (80.0-100.0) fL MCH 29.4 (25.0-35.0) pg MCHC 30.4 L (31.0-37.0) g/dL RDW 17.8 H (11.5-15.5) % Plt Count 251 (150-450) k/uL MPV 8.3 Neutrophils % 83 % Lymphocytes % 9 % Monocytes % 5 % Eosinophils % 1 % Basophils % 0 % Neutrophils # 9.5 H (1.3-7.7) k/uL Lymphocytes # 1.0 (1.0-4.8) k/uL Monocytes # 0.5 (0-1.0) k/uL Eosinophils # 0.1 (0-0.7) k/uL Basophils # 0.0 (0-0.2) k/uL Hypochromasia Marked Anisocytosis Slight Macrocytosis Slight PT 15.7 H (10.0-12.5) sec INR 1.5 H (<1.2) APTT 32.0 H (22.0-30.0) sec Sodium 136 L (137-145) mmol/L Potassium 4.8 (3.5-5.1) mmol/L Chloride 96 L (98-107) mmol/L Carbon Dioxide 33 H (22-30) mmol/L Anion Gap 7 mmol/L BUN 27 H (7-17) mg/dL Creatinine 1.59 H (0.52-1.04) mg/dL Est GFR (CKD-EPI)AfAm 34 (>60 ml/min/1.73 sqM) Est GFR (CKD-EPI)NonAf 29 (>60 ml/min/1.73 sqM) Glucose 113 H (74-99) mg/dL Calcium 8.6 (8.4-10.2) mg/dL Total Bilirubin 2.0 H (0.2-1.3) mg/dL AST 37 H (14-36) U/L ALT 19 (4-34) U/L Alkaline Phosphatase 134 H (38-126) U/L Total Protein 7.4 (6.3-8.2) g/dL Albumin 3.0 L (3.5-5.0) g/dL - EKG Data -: EKG Interpreted by Sc EKG Comments: EKG performed at 11: 55 sinus rhythm rate of 65 AK 189 QRS 91 QT/QTc 339/350 Disposition Clinical Impression: Closed fracture of right distal femur Disposition: ADMITTED IP TO THIS HOSP Condition: Fair Time of Disposition: 11:21
--- NOTE | 2023-08-31 11:24 | XR ---
EXAMINATION TYPE: XR chest 1V DATE OF EXAM: 08/31/2023 COMPARISON: Pain presurgical INDICATION: Presurgical clearance TECHNIQUE: Single frontal view of the chest is obtained. FINDINGS: The heart size is enlarged. Pacemaker overlies left chest The pulmonary vasculature is normal. The lungs are clear. IMPRESSION: 1. Cardiomegaly. 2. No acute pulmonary process.
[2023-08-31 11:33] LABS: Anisocytosis Slight; Basophils % (A) 0 %; Eosinophils # (A) 0.1 k/uL (0-0.7); Eosinophils % (A) 1 %; HGB 12.8 gm/dL (11.4-16.0); Hypochromasia Marked; Lymphocytes % (A) 9 %; MCH 29.4 pg (25.0-35.0); MCHC 30.4 g/dL (31.0-37.0); MCV 96.7 fL (80.0-100.0); Macrocytosis Slight; Mean Platelet Volume 8.3; Monocytes # (A) 0.5 k/uL (0-1.0); Monocytes % (A) 5 %; Neutrophils # (A) 9.5 k/uL (1.3-7.7); Neutrophils % (A) 83 %; Platelet Count 251 k/uL (150-450); RBC 4.34 m/uL (3.80-5.40); RDW 17.8 % (11.5-15.5); WBC 11.5 k/uL (3.8-10.6)
[2023-08-31 11:38] LABS: INR 1.5 (<1.2); Prothrombin Time 15.7 sec (10.0-12.5)
[2023-08-31] MEDS: HYDROcodone/APAP 5-325MG 1 EACH TAB PO STA (11:55)
[2023-08-31 11:56] LABS: ALT 19 U/L (4-34); AST 37 U/L (14-36); African American GFR (CKD) 34 (>60 ml/min/1.73 sqM); Alkaline Phosphatase 134 U/L (38-126); Anion Gap 7 mmol/L; Blood Urea Nitrogen 27 mg/dL (7-17); Calcium 8.6 mg/dL (8.4-10.2); Carbon Dioxide 33 mmol/L (22-30); Chloride 96 mmol/L (98-107); Glucose 113 mg/dL (74-99); Non-African American GFR(CKD) 29 (>60 ml/min/1.73 sqM); Sodium 136 mmol/L (137-145); Total Protein 7.4 g/dL (6.3-8.2)
[2023-08-31 12:03] LABS: Potassium 4.8 mmol/L (3.5-5.1)
[2023-08-31] MEDS: MORPHINE SULFATE 2 MG/ML SYRINGE IVP ONE (13:33)
[2023-08-31] MEDS: ONDANSETRON 4 MG/2 ML VIAL IVP STA (13:35)
--- NOTE | 2023-08-31 14:45 | P.CRDCN ---
History of Present Illness Consult date: 08/31/23 Reason for Consult (text): Cardiac clearance, surgical clearance History of present illness: HISTORY OF PRESENT ILLNESS: This is a 87-year-old female patient of Dr. Teague with a past medical history significant for persistent atrial fibrillation, chronic diastolic heart failure, coronary artery disease with previous stenting of the mid RCA in 2011, peripheral vascular disease with previous stenting, hypertension, hyperlipidemia, and sick sinus syndrome with pacemaker implantation. We have been asked to evaluate the patient for preop clearance. Patient gives history that she was at home and turned around, knee gave out on her and she had a fall. Patient has been found to have a right distal femur fracture. Patient is seen today in the ER hallway she is waiting for bed on the [facility] floor. Patient denies any loss of consciousness. No chest pain or pressure. She states she has been taking all of her medications as directed. Her last Xarelto was taken on 08/29. Patient had a recent hospitalization in July at which time she was seen by cardiology for acute on chronic heart failure as well as lower extremity cellulitis. Patient was discharged to [facility] and has subsequently been discharged home. EKG reveals sinus rhythm left axis deviation Chest xray: Cardiomegaly. No acute pulmonary process. WBC 11.5, hemoglobin 12.8. INR 1.5. Sodium 136, potassium 4.8, CO2 33, BUN 27 creatinine 1.59. Blood sugar 113. AST 37, ALT 19, alkaline phosphatase 134. Total bilirubin 2. Current home cardiac medications: Amiodarone 200 mg daily, atorvastatin 40 mg at bedtime, metoprolol succinate 50 mg twice daily, potassium chloride 20 mill equivalents twice daily, Xarelto 15 mg daily, torsemide 40 mg in the morning and 20 mg in the afternoon. Most recent echocardiogram obtained in 07/31/2023 reveals ejection fraction 55-6 0%, technically difficult study. Normal LV systolic function. Mild to moderate mitral regurgitation. Patient underwent Lexiscan stress test in January 2020 which was negative for ischemia REVIEW OF SYSTEMS: At the time of my exam: CONSTITUTIONAL: Denies fever or chills. HEENT: Denies blurred vision, vision changes, or eye pain. Denies hemoptysis CARDIOVASCULAR: Denies chest pain. Denies orthopnea. Denies PND. Denies palpitations RESPIRATORY: Denies shortness of breath. GASTROINTESTINAL: Denies abdominal pain. Denies nausea or vomiting. HEMATOLOGIC: Denies bleeding disorders. GENITOURINARY: Denies any blood in urine. SKIN: Denies pruitis. Denies rash. PHYSICAL EXAM: VITAL SIGNS: Reviewed. Blood pressure 153/76, heart rate 87, pulse ox 92% on 2 L nasal cannula. GENERAL: Well-developed in no acute distress. HEENT: Head is normocephalic. Pupils are equal, round. Sclerae anicteric. Mucous membranes of the mouth are moist. Neck supple. No JVD or thyromegaly LUNGS: Respirations even and unlabored. Lungs essentially clear to auscultation bilaterally. HEART: Irregular rate and rhythm. S1 and S2 heard. ABDOMEN: Soft. Nondistended. Nontender. EXTREMITIES: Normal range of motion. No clubbing or cyanosis. Peripheral pulses intact. Trace bilateral lower extremity edema with dry flaky skin NEUROLOGIC: Awake and alert. Oriented x 2. ASSESSMENT: Right distal femur fracture, patient is scheduled for retrograde IM nail right distal femur fracture on 08/31 Paroxysmal atrial fibrillation currently in a sinus rhythm Chronic diastolic heart failure stable Sick sinus syndrome with previous pacemaker implantation Peripheral vascular disease with previous stenting Hypertension Hyperlipidemia Chronic kidney disease PLAN: Resume patient's home cardiac medications Patient is at high risk for complications during surgery due to multiple comorbidities including atrial fibrillation and CHF. However, benefits outweigh risk and is nothing prohibiting surgical intervention. No need to repeat echocardiogram Xarelto has been placed on hold Further recommendations pending patient's course Nurse practitioner note has been reviewed by physician. Signing provider agrees with the documented findings, assessment, and plan of care. Past Medical History Past Medical History: Atrial Fibrillation, Atrial Flutter, Coronary Artery Disease (CAD), Cancer, Heart Failure, COPD, Hyperlipidemia, Hypertension, Liver Disease, Thyroid Disorder, Vascular Disorder Additional Past Medical History / Comment(s): hx Kidney Stones, Chronic N/T BILAT LEGS, WITH BLE EDEMA, states has had lymphedema with weeping valeria lower legs, degenerative arthritis, hx hepatitis C, hx cervical cancer, PVD Last Myocardial Infarction Date:: 2009 History of Any Multi-Drug Resistant Organisms: VRE Date of last positivie culture/infection: 01/14/21 MDRO Source:: VRE URINE Past Surgical History: Appendectomy, Cholecystectomy, Heart Catheterization With Stent, Hysterectomy, Joint Replacement, Pacemaker Additional Past Surgical History / Comment(s): valeria lower ext vascular repairs,2-6-17 abd. aortogram, ERCP, 4 cardiac stents, left hip replacement Past Anesthesia/Blood Transfusion Reactions: Family History of Problems w/ Anesthesia Additional Past Anesthesia/Blood Transfusion Reaction / Comment(s): sister-long time to come out Date of Last Stent Placement:: 2010? Type of Cardiac Device: Permanent Pacemaker Device Placement Date:: 2023 replaced Past Psychological History: No Psychological Hx Reported Smoking Status: Former smoker Past Alcohol Use History: None Reported Past Drug Use History: None Reported - Past Family History Son(s) Family Medical History: Cancer Additional Family Medical History / Comment(s): Patient has 3 sons and one has been diagnosed with bladder cancer. Brother(s) Family Medical History: Cancer Additional Family Medical History / Comment(s): Patient has 2 brothers and one was diagnosed with esophageal cancer with metastatic disease. Daughter(s) Family Medical History: Cancer, Deep Vein Thrombosis (DVT) Additional Family Medical History / Comment(s): One daughter had Leukemia, another daughter had DVT's, had 4 joint replacements. Medications and Allergies Home Medications Medication Instructions Recorded Confirmed Type Levothyroxine Sodium [Synthroid] 50 mcg PO DAILY@0600 11/07/14 08/31/23 History Potassium Chloride ER [K-Dur 20] 20 meq PO BID@0900,1700 03/06/19 08/31/23 History Rivaroxaban [Xarelto] 15 mg PO DAILY@1700 07/23/21 08/31/23 History allopurinoL [Zyloprim] 100 mg PO DAILY 05/04/23 08/31/23 History Atorvastatin [Lipitor] 40 mg PO HS 05/10/23 08/31/23 History Amiodarone [Cordarone] 200 mg PO DAILY 07/16/23 08/31/23 History Ferrous Sulfate [Iron (65 MG 325 mg PO DAILY 07/16/23 08/31/23 History Elemental)] Pantoprazole [Protonix] 40 mg PO DAILY 07/16/23 08/31/23 History SILVER sulfADIAZINE CREAM 1 applic TOPICAL BID 07/31/23 08/31/23 History [Silvadene Cream] Torsemide [Demadex] 40 mg PO DAILY@0600 07/31/23 08/31/23 History Ammonium Lactate Lotion 1 applic TOPICAL BID@0900,1400 08/31/23 08/31/23 History [Lac-Hydrin 12% Lotion] Ipratropium-Albuterol Nebulize 3 ml INHALATION RT-Q6H PRN 08/31/23 08/31/23 History [Duoneb 0.5 mg-3 mg/3 ml Soln] Loratadine 10 mg PO Q8H PRN 08/31/23 08/31/23 History Menthol-Zinc Oxide Oint 1 applic TOPICAL BID@0900,1700 08/31/23 08/31/23 History [Calmoseptine Ointment] Metoprolol Succinate (ER) [Toprol 50 mg PO BID 08/31/23 08/31/23 History Xl] Torsemide [Soaanz] 20 mg PO DAILY@1400 08/31/23 08/31/23 History traMADol HCl [Ultram] 25 mg PO Q6H PRN 08/31/23 08/31/23 History Allergies Allergy/AdvReac Type Severity Reaction Status Date / Time doxycycline AdvReac Nausea & Verified 08/31/23 11:19 Vomiting & Diarrhea hydromorphone [From Dilaudid] AdvReac Nausea & Verified 08/31/23 11:19 Vomiting lorazepam [From Ativan] AdvReac Hallucinati Verified 08/31/23 11:19 ons Physical Exam Vitals: Vital Signs Pulse Resp BP Pulse Ox 08/31/23 09:45 87 18 153/76 92 L Intake and Output 08/30/23 08/31/23 08/31/23 22:59 06:59 14:59 Other: Weight 58.967 kg Results 08/31/23 11:13 08/31/23 11:13 Cardiac Enzymes 08/31/23 Range/Units 11:13 AST 37 H (14-36) U/L Coagulation 08/31/23 Range/Units 11:13 PT 15.7 H (10.0-12.5) sec APTT 32.0 H (22.0-30.0) sec CBC 08/31/23 Range/Units 11:13 WBC 11.5 H (3.8-10.6) k/uL RBC 4.34 (3.80-5.40) m/uL Hgb 12.8 (11.4-16.0) gm/dL Hct 42.0 (34.0-46.0) % Plt Count 251 (150-450) k/uL Comprehensive Metabolic Panel 08/31/23 Range/Units 11:13 Sodium 136 L (137-145) mmol/L Potassium 4.8 (3.5-5.1) mmol/L Chloride 96 L (98-107) mmol/L Carbon Dioxide 33 H (22-30) mmol/L BUN 27 H (7-17) mg/dL Creatinine 1.59 H (0.52-1.04) mg/dL Glucose 113 H (74-99) mg/dL Calcium 8.6 (8.4-10.2) mg/dL AST 37 H (14-36) U/L ALT 19 (4-34) U/L Alkaline Phosphatase 134 H (38-126) U/L Total Protein 7.4 (6.3-8.2) g/dL Albumin 3.0 L (3.5-5.0) g/dL Current Medications Generic Name Dose Route Start Last Admin Trade Name Freq PRN Reason Stop Dose Admin Hydrocodone Bitart/Acetaminophen 1 each 08/31/23 11:22 Hydrocodone/Apap 5-325mg 1 Each Tab PO Q4HR PRN Pain Naloxone HCl 0.2 mg 08/31/23 11:21 Naloxone 0.4 Mg/Ml 1 Ml Vial IV Q2M PRN Opioid Reversal Ondansetron HCl 4 mg 08/31/23 11:21 Ondansetron 4 Mg/2 Ml Vial IVP Q8HR PRN Nausea And Vomiting Intake and Output 08/30/23 08/31/23 08/31/23 22:59 06:59 14:59 Other: Weight 58.967 kg Patient Weight 09/01/23 06:59 Weight 58.967 kg 08/31/23 11:13 08/31/23 11:13
[2023-08-31] MEDS ORDERED: HYDROmorphone 0.5 MG/0.5 ML SYRINGE IVP PRN (15:00)
[2023-08-31] MEDS ORDERED: MAGNESIUM HYDROXIDE 2,400 MG/30 ML CUP PO PRN (15:01)
[2023-08-31] MEDS: AMIODARONE 200 MG TAB PO SCH (15:13)
[2023-08-31] MEDS: METOPROLOL SUCCINATE (ER) 50 MG TAB.ER.24H PO SCH (15:13)
[2023-08-31] MEDS: MORPHINE SULFATE 4 MG/ML SYRINGE IVP STA (15:29)
[2023-08-31] MEDS: TORSEMIDE 20 MG TAB PO SCH (15:30)
[2023-08-31] MEDS: NALOXONE 0.4 MG/ML 1 ML VIAL IV PRN (16:45)
[2023-08-31] MEDS ORDERED: IPRATROPIUM-ALBUTEROL 3 ML NEB INHALATION PRN (17:49)
[2023-08-31] MEDS ORDERED: LIDOCAINE 1% (10MG/ML) FOR IV START INTRADERMA PRN (18:45)
--- NOTE | 2023-08-31 20:52 | P.HPOR ---
History of Present Illness H&P Date: 08/31/23 Chief Complaint: Right distal femur fracture Patient is an 87-year-old female who presented to [facility] on 08/31/2023 after being brought in by EMS. Patient resides at [facility], apparently she had an unwitnessed fall. After the fall, she noted extreme pain to the right lower extremity and was unable to weight-bear. After arrival to [facility], multiple imaging and lab test were done. Images demonstrated a displaced right distal femur fracture. Our orthopedic team was contacted regarding this patient. Patient was evaluated today in the emergency room, she did have family present. Patient was noted to be in quite a bit of pain. Patient was a rather poor historian when it came to her medical health. I was able to discuss this today with the family. Her general medical health is at the greatest, she has known congestive heart failure, she does take Xarelto for this. She has other medical comorbidities. Patient does not ambulate very often, she does utilize a walker when she does this. Notable peripheral vascular disease in the bilateral lower extremities. Patient was admitted under orthopedic care with plan for likely surgical intervention. Multiple consults have been placed for management and clearances for surgery. Review of Systems Constitutional: Reports as per HPI Past Medical History Past Medical History: Atrial Fibrillation, Atrial Flutter, Coronary Artery Disease (CAD), Cancer, Heart Failure, COPD, Hyperlipidemia, Hypertension, Liver Disease, Thyroid Disorder, Vascular Disorder Additional Past Medical History / Comment(s): hx Kidney Stones, Chronic N/T BILAT LEGS, WITH BLE EDEMA, states has had lymphedema with weeping valeria lower legs, degenerative arthritis, hx hepatitis C, hx cervical cancer, PVD Last Myocardial Infarction Date:: 2009 History of Any Multi-Drug Resistant Organisms: VRE Date of last positivie culture/infection: 01/14/21 MDRO Source:: VRE URINE Past Surgical History: Appendectomy, Cholecystectomy, Heart Catheterization With Stent, Hysterectomy, Joint Replacement, Pacemaker Additional Past Surgical History / Comment(s): valeria lower ext vascular repairs,2--17 abd. aortogram, ERCP, 4 cardiac stents, left hip replacement Past Anesthesia/Blood Transfusion Reactions: Family History of Problems w/ Anesthesia Additional Past Anesthesia/Blood Transfusion Reaction / Comment(s): sister-long time to come out Date of Last Stent Placement:: 2010? Type of Cardiac Device: Permanent Pacemaker Device Placement Date:: 2023 replaced Past Psychological History: No Psychological Hx Reported Smoking Status: Former smoker Past Alcohol Use History: None Reported Additional Past Alcohol Use History / Comment(s): Patient quit smoking in 2019. She smoked one pack per day for 70 years Past Drug Use History: None Reported - Past Family History Son(s) Family Medical History: Cancer Additional Family Medical History / Comment(s): Patient has 3 sons and one has been diagnosed with bladder cancer. Brother(s) Family Medical History: Cancer Additional Family Medical History / Comment(s): Patient has 2 brothers and one was diagnosed with esophageal cancer with metastatic disease. Daughter(s) Family Medical History: Cancer, Deep Vein Thrombosis (DVT) Additional Family Medical History / Comment(s): One daughter had Leukemia, another daughter had DVT's, had 4 joint replacements. Medications and Allergies Home Medications Medication Instructions Recorded Confirmed Type Levothyroxine Sodium [Synthroid] 50 mcg PO DAILY@0600 11/07/14 08/31/23 History Potassium Chloride ER [K-Dur 20] 20 meq PO BID@0900,1700 03/06/19 08/31/23 History Rivaroxaban [Xarelto] 15 mg PO DAILY@1700 07/23/21 08/31/23 History allopurinoL [Zyloprim] 100 mg PO DAILY 05/04/23 08/31/23 History Atorvastatin [Lipitor] 40 mg PO HS 05/10/23 08/31/23 History Amiodarone [Cordarone] 200 mg PO DAILY 07/16/23 08/31/23 History Ferrous Sulfate [Iron (65 MG 325 mg PO DAILY 07/16/23 08/31/23 History Elemental)] Pantoprazole [Protonix] 40 mg PO DAILY 07/16/23 08/31/23 History SILVER sulfADIAZINE CREAM 1 applic TOPICAL BID 07/31/23 08/31/23 History [Silvadene Cream] Torsemide [Demadex] 40 mg PO DAILY@0600 07/31/23 08/31/23 History Ammonium Lactate Lotion 1 applic TOPICAL BID@0900,1400 08/31/23 08/31/23 History [Lac-Hydrin 12% Lotion] Ipratropium-Albuterol Nebulize 3 ml INHALATION RT-Q6H PRN 08/31/23 08/31/23 History [Duoneb 0.5 mg-3 mg/3 ml Soln] Loratadine 10 mg PO Q8H PRN 08/31/23 08/31/23 History Menthol-Zinc Oxide Oint 1 applic TOPICAL BID@0900,1700 08/31/23 08/31/23 History [Calmoseptine Ointment] Metoprolol Succinate (ER) [Toprol 50 mg PO BID 08/31/23 08/31/23 History Xl] Torsemide [Soaanz] 20 mg PO DAILY@1400 08/31/23 08/31/23 History traMADol HCl [Ultram] 25 mg PO Q6H PRN 08/31/23 08/31/23 History Allergies Allergy/AdvReac Type Severity Reaction Status Date / Time doxycycline AdvReac Nausea & Verified 08/31/23 11:19 Vomiting & Diarrhea hydromorphone [From Dilaudid] AdvReac Nausea & Verified 08/31/23 11:19 Vomiting lorazepam [From Ativan] AdvReac Hallucinati Verified 08/31/23 11:19 ons Physical Examination Right lower extremity: There are no open lesions or sores visualized surrounding the knee. Soft tissue swelling and ecchymosis is present. Erasto bandages present from the rueda past the foot for peripheral vascular disease. Obvious tenderness with palpation to the distal femur and surrounding knee. No notable effusion in the knee at this time. Range of motion at the knee and hip was very limited due to pain. Plantarflexion, dorsiflexion, EHL, FHL are intact. Skin is warm to touch throughout the extremity, she is able to wiggle the toes with no difficulty. Calf is soft, no tenderness with palpation. Results - Labs Labs: Abnormal Lab Results - Last 24 Hours (Table) 08/31/23 08/31/23 08/31/23 Range/Units 11:13 11:13 11:13 WBC 11.5 H (3.8-10.6) k/uL MCHC 30.4 L (31.0-37.0) g/dL RDW 17.8 H (11.5-15.5) % Neutrophils # 9.5 H (1.3-7.7) k/uL PT 15.7 H (10.0-12.5) sec INR 1.5 H (<1.2) APTT 32.0 H (22.0-30.0) sec Sodium 136 L (137-145) mmol/L Chloride 96 L (98-107) mmol/L Carbon Dioxide 33 H (22-30) mmol/L BUN 27 H (7-17) mg/dL Creatinine 1.59 H (0.52-1.04) mg/dL Glucose 113 H (74-99) mg/dL Total Bilirubin 2.0 H (0.2-1.3) mg/dL AST 37 H (14-36) U/L Alkaline Phosphatase 134 H (38-126) U/L Albumin 3.0 L (3.5-5.0) g/dL H & H 08/31/23 Range/Units 11:13 Hgb 12.8 (11.4-16.0) gm/dL Hct 42.0 (34.0-46.0) % Coagulation 08/31/23 Range/Units 11:13 INR 1.5 H (<1.2) Result Diagrams: 08/31/23 11:13 08/31/23 11:13 - Diagnostic results Hip x-ray: report reviewed, image reviewed (AP pelvis along with right hip x- rays were reviewed. Images demonstrate severe degenerative changes of the right hip, there is a left total hip prosthesis present, hip joint is intact. Components appear stable with no obvious lucencies) Knee x-ray: report reviewed, image reviewed (Images and reports of the right knee were reviewed, these do demonstrate a displaced distal third oblique femur fracture. Severe arthritic changes also noted throughout the right knee.) Assessment and Plan Assessment: Right oblique distal third femur fracture Status post fall from standing Severe right knee osteoarthritis Severe right hip osteoarthritis Previous left total hip arthroplasty Multiple medical comorbidities Plan: I was able to discuss this case, this to include both physical exam findings and imaging studies my attending Dr. Horner. Patient was admitted under our orthopedic care with plan for surgical intervention. Discussed treatment options with both the patient and family member that was present today at bedside. We are recommending a retrograde intramedullary nail to fixate the right distal femur fracture. We would like to proceed with surgery on 09/01/2023. Risk and benefits of the procedure were discussed with the patient, this to include but not exclude blood loss, infection, development of blood clot, and adequate healing of bone, pain and stiffness, need for further surgery. Patient is in good understanding and would like to proceed. Pain control, both IV and oral medications as needed N.p.o. after midnight Nonweightbearing right lower extremity, utilize knee immobilizer Urinary catheter recommended DVT prophylaxis, hold Xarelto at this time, plan to restart after surgery Medical and cardiac recommendations appreciated PT/OT evaluation after surgery Further recommendations to follow after surgery Time with Patient: Less than 30
[2023-08-31] MEDS: ATORVASTATIN 40 MG TAB PO SCH (20:58)
[2023-08-31] MEDS: POTASSIUM CHLORIDE ER 20 MEQ TAB.ER PO SCH (20:58)
[2023-08-31] MEDS: HYDROcodone/APAP 5-325MG 1 EACH TAB PO PRN (21:32)
--- NOTE | 2023-08-31 21:37 | P.CONS ---
History of Present Illness - Reason for Consult Consult date: 08/31/23 Medical management Requesting physician: Duc Horner - Chief Complaint Right hip pain - History of Present Illness This is a pleasant 87-year-old patient, follows with Dr. Powers. Chronic stable medical conditions include atrial fibrillation, CAD, CHF, COPD, hypertension hyperlipidemia, chronic lymphedema, DJD prior history of CAD with stent. At baseline does use a walker. No chest pain or short of breath. Patient took a fall with pain in the right leg. X-ray confirmed right distal femur fracture with slight displacement. Brace was placed in the ER. Pain in the operative site. No nausea vomiting. Review of systems: GEN.: Tired EYES: None HEENT: None NECK: None RESPIRATORY: None CARDIOVASCULAR: None GASTROINTESTINAL: None GENITOURINARY: Urine incontinence e MUSCULOSKELETAL: Joint pains LYMPHATICS: None HEMATOLOGICAL: None PSYCHIATRY: A bit forgetful e NEUROLOGICAL: None Social history: Lives at [facility]. Uses a walker. Patient smoked a pack a day for about 70 years. Stopped in 2018. No alcohol intake. Physical examination: VITAL SIGNS: 62, 14, 102 x 65, 92% on 4 L GENERAL: BMI 23, reclining bed tired. EYES: Pupils equal. Conjunctiva tony l. HEENT: External appearance of nose and ears normal, oral cavity grossly normal. NECK: JVD not raised; masses not palpable. HEART: First and second heart sounds are normal; no edema. LUNGS: Respiratory rate normal; decreased breath sound. ABDOMEN: Soft, nontender, liver spleen not palpable, no masses palpable. PSYCH: Sleepy, but able to answer questions a l. MUSCULOSKELETAL:No Clubbing/cyanosis;muscles-grossly intact. OA in several joints. Light lower leg in a brace. Edema in both lower extremity. Some skin discoloration distally NEUROLOGICAL: Cranial nerves grossly intact; no facial asymmetry, power and sensation grossly intact. LYMPHATICS: No lymph nodes palpable in the axilla and neck INVESTIGATIONS, reviewed in the clinical context: August 31, 2023: White count 11.5 hemoglobin 12.8 platelets 251 sodium 136 potassium 4.8 BUN 33 creatinine 27 creatinine 1.59 AST 37 ALT 19 EKG tracing personally reviewed by me-sinus rhythm. Nonspecific T wave Changes Chest x-ray film personally reviewed by me-cardiomegaly. Some venous prominence. X-ray of the right knee and hip: Distal femoral diaphyseal oblique fracture with mild diastases. Advanced DJD of the right knee. Left hip prosthesis. Assessment plan: -Acute right distal femoral diaphyseal oblique fracture with mild diastasis. Secondary to fall. Right leg/knee in a brace. For surgical intervention per orthopedics. -CAD with a prior history of stent Patient not on aspirin per home medications. But is on Xarelto. Latter which is held. -Paroxysmal atrial fibrillation currently in sinus rhythm Toprol-XL 50 mg twice daily. Xarelto held for now. -GERD Protonix 40 mg a day -Hypothyroid Synthroid 50 mcg a day -Hyperlipidemia Lipitor 40 mg nightly -Primary osteoarthritis Pain medication as needed -Chronic congestive heart failure from diastolic dysfunction EF 55 to 60% [July 2023]: Stable Continue with home dose of diuretic -COPD and ex-smoker DuoNeb 4 times daily to optimize pulmonary function perioperatively. -Chronic gait dysfunction, uses a walker at baseline -DNR. -Perioperative cardiovascular risk: Patient has advanced age and multiple medical problems. Decreased exercise tolerance does use a walker at baseline. Also has CAD with stent. Patient is a moderate risk from a cardiovascular standpoint with no absolute contraindications. For the course of the procedure patient CODE STATUS will be changed to full code No family at the bedside. Patient n.p.o. after midnight except medications. Xarelto has been held for now. Thank you Dr. 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 aortogram, ERCP, 4 cardiac stents, left hip replacement Past Anesthesia/Blood Transfusion Reactions: Family History of Problems w/ Anesthesia Additional Past Anesthesia/Blood Transfusion Reaction / Comm: sister-long time to come out Date of Last Stent Placement:: 2010? Type of Cardiac Device: Permanent Pacemaker Device Placement Date:: 2023 replaced Past Psychological History: No Psychological Hx Reported Smoking Status: Former smoker Past Alcohol Use History: None Reported Additional Past Alcohol Use History / Comment(s): Patient quit smoking in 2019. She smoked one pack per day for 70 years Past Drug Use History: None Reported - Past Family History Son(s) Family Medical History: Cancer Additional Family Medical History / Comment(s): Patient has 3 sons and one has been diagnosed with bladder cancer. Brother(s) Family Medical History: Cancer Additional Family Medical History / Comment(s): Patient has 2 brothers and one was diagnosed with esophageal cancer with metastatic disease. Daughter(s) Family Medical History: Cancer, Deep Vein Thrombosis (DVT) Additional Family Medical History / Comment(s): One daughter had Leukemia, another daughter had DVT's, had 4 joint replacements. Medications and Allergies Home Medications Medication Instructions Recorded Confirmed Type Levothyroxine Sodium [Synthroid] 50 mcg PO DAILY@0600 11/07/14 08/31/23 History Potassium Chloride ER [K-Dur 20] 20 meq PO BID@0900,1700 03/06/19 08/31/23 History Rivaroxaban [Xarelto] 15 mg PO DAILY@1700 07/23/21 08/31/23 History allopurinoL [Zyloprim] 100 mg PO DAILY 05/04/23 08/31/23 History Atorvastatin [Lipitor] 40 mg PO HS 05/10/23 08/31/23 History Amiodarone [Cordarone] 200 mg PO DAILY 07/16/23 08/31/23 History Ferrous Sulfate [Iron (65 MG 325 mg PO DAILY 07/16/23 08/31/23 History Elemental)] Pantoprazole [Protonix] 40 mg PO DAILY 07/16/23 08/31/23 History SILVER sulfADIAZINE CREAM 1 applic TOPICAL BID 07/31/23 08/31/23 History [Silvadene Cream] Torsemide [Demadex] 40 mg PO DAILY@0600 07/31/23 08/31/23 History Ammonium Lactate Lotion 1 applic TOPICAL BID@0900,1400 08/31/23 08/31/23 History [Lac-Hydrin 12% Lotion] Ipratropium-Albuterol Nebulize 3 ml INHALATION RT-Q6H PRN 08/31/23 08/31/23 History [Duoneb 0.5 mg-3 mg/3 ml Soln] Loratadine 10 mg PO Q8H PRN 08/31/23 08/31/23 History Menthol-Zinc Oxide Oint 1 applic TOPICAL BID@0900,1700 08/31/23 08/31/23 History [Calmoseptine Ointment] Metoprolol Succinate (ER) [Toprol 50 mg PO BID 08/31/23 08/31/23 History Xl] Torsemide [Soaanz] 20 mg PO DAILY@1400 08/31/23 08/31/23 History traMADol HCl [Ultram] 25 mg PO Q6H PRN 08/31/23 08/31/23 History Allergies Allergy/AdvReac Type Severity Reaction Status Date / Time doxycycline AdvReac Nausea & Verified 08/31/23 11:19 Vomiting & Diarrhea hydromorphone [From Dilaudid] AdvReac Nausea & Verified 08/31/23 11:19 Vomiting lorazepam [From Ativan] AdvReac Hallucinati Verified 08/31/23 11:19 ons Physical Exam Vitals: Vital Signs Pulse Pulse Resp BP BP Pulse Ox 08/31/23 20:41 90 L 08/31/23 20:36 62 102/65 08/31/23 19:22 55 L 14 110/65 92 L 08/31/23 16:57 70 92 L 08/31/23 16:45 12 08/31/23 16:40 71 12 108/67 82 L 08/31/23 09:45 87 18 153/76 92 L Intake and Output 08/31/23 08/31/23 08/31/23 06:59 14:59 22:59 Other: Weight 58.967 kg 58.967 kg Results CBC & Chem 7: 08/31/23 11:13 08/31/23 11:13 Labs: Abnormal Lab Results - Last 24 Hours (Table) 08/31/23 08/31/23 08/31/23 Range/Units 11:13 11:13 11:13 WBC 11.5 H (3.8-10.6) k/uL MCHC 30.4 L (31.0-37.0) g/dL RDW 17.8 H (11.5-15.5) % Neutrophils # 9.5 H (1.3-7.7) k/uL PT 15.7 H (10.0-12.5) sec INR 1.5 H (<1.2) APTT 32.0 H (22.0-30.0) sec Sodium 136 L (137-145) mmol/L Chloride 96 L (98-107) mmol/L Carbon Dioxide 33 H (22-30) mmol/L BUN 27 H (7-17) mg/dL Creatinine 1.59 H (0.52-1.04) mg/dL Glucose 113 H (74-99) mg/dL Total Bilirubin 2.0 H (0.2-1.3) mg/dL AST 37 H (14-36) U/L Alkaline Phosphatase 134 H (38-126) U/L Albumin 3.0 L (3.5-5.0) g/dL
[2023-09-01] MEDS: LACTATED RINGERS 1,000 ML IV SCH (02:22)
[2023-09-01 03:29] LABS: Appearance,Urine Cloudy (Clear); Bacteria,Urine Many /hpf; Bilirubin,Urine Negative (Negative); Blood,Urine Small (Negative); Color,Urine Colorless; Glucose,Urine (UA) Negative (Negative); Hyaline Casts,Urine 10 /lpf (0-2); Ketones,Urine Negative (Negative); Leukocyte Esterase,Urine Large (Negative); Mucus,Urine Rare /hpf; Nitrite,Urine Negative (Negative); Protein,Urine Trace (Negative); RBC,Urine 5 /hpf (0-5); Specific Gravity,Urine 1.009 (1.001-1.035); Squamous Epithelial Cell,Urine <1 /hpf (0-4); Urobilinogen,Urine <2.0 mg/dL (<2.0); WBC,Urine >182 /hpf (0-5)
[2023-09-01] MEDS: LEVOTHYROXINE 50 MCG TAB PO SCH (05:21)
[2023-09-01] MEDS: PANTOPRAZOLE 40 MG TABLET PO SCH (05:21)
[2023-09-01] MEDS: TORSEMIDE 20 MG TAB PO SCH (05:23)
[2023-09-01] MEDS ORDERED: HYDROmorphone 0.5 MG/0.5 ML SYRINGE IVP PRN (07:00)
[2023-09-01] MEDS: allopurinoL 100 MG TAB PO SCH (08:10)
[2023-09-01] MEDS: SENNOSIDES-DOCUSATE SODIUM 1 EACH TAB PO SCH (08:10)
[2023-09-01] MEDS: AMMONIUM LACTATE 12% LOTION 225 GM BTL TOPICAL SCH (08:34)
--- NOTE | 2023-09-01 09:45 | P.PN ---
Subjective Progress Note Date: 09/01/23 Reason for Consult (text): Cardiac clearance, surgical clearance History of present illness: HISTORY OF PRESENT ILLNESS: This is a 87-year-old female patient of Dr. Teague with a past medical history significant for persistent atrial fibrillation, chronic diastolic heart failure, coronary artery disease with previous stenting of the mid RCA in 2011, peripheral vascular disease with previous stenting, hypertension, hyperlipidemia, and sick sinus syndrome with pacemaker implantation. We have been asked to evaluate the patient for preop clearance. Patient gives history that she was at home and turned around, knee gave out on her and she had a fall. Patient has been found to have a right distal femur fracture. Patient is seen today in the ER hallway she is waiting for bed on the [facility] floor. Patient denies any loss of consciousness. No chest pain or pressure. She states she has been taking all of her medications as directed. Her last Xarelto was taken on 08/29. Patient had a recent hospitalization in July at which time she was seen by cardiology for acute on chronic heart failure as well as lower extremity cellulitis. Patient was discharged to [facility] and has subsequently been discharged home. EKG reveals sinus rhythm left axis deviation Chest xray: Cardiomegaly. No acute pulmonary process. WBC 11.5, hemoglobin 12.8. INR 1.5. Sodium 136, potassium 4.8, CO2 33, BUN 27 creatinine 1.59. Blood sugar 113. AST 37, ALT 19, alkaline phosphatase 134. Total bilirubin 2. Current home cardiac medications: Amiodarone 200 mg daily, atorvastatin 40 mg at bedtime, metoprolol succinate 50 mg twice daily, potassium chloride 20 mill equivalents twice daily, Xarelto 15 mg daily, torsemide 40 mg in the morning and 20 mg in the afternoon. Most recent echocardiogram obtained in 07/31/2023 reveals ejection fraction 55- 60%, technically difficult study. Normal LV systolic function. Mild to moderate mitral regurgitation. Patient underwent Lexiscan stress test in January 2020 which was negative for ischemia 08/31 Patient is scheduled for IM nail of the right distal femur fracture. She complains of pain to the right leg. No complaints of chest pain or shortness of breath. Blood pressure 94/54, heart rate 58, pulse ox 99% on 2 L nasal cannula. PHYSICAL EXAM: VITAL SIGNS: Reviewed. GENERAL: Well-developed in no acute distress. HEENT: Head is normocephalic. Pupils are equal, round. Sclerae anicteric. Mucous membranes of the mouth are moist. Neck supple. No JVD or thyromegaly LUNGS: Respirations even and unlabored. Lungs essentially clear to auscultation bilaterally. HEART: Irregular rate and rhythm. S1 and S2 heard. ABDOMEN: Soft. Nondistended. Nontender. EXTREMITIES: Normal range of motion. No clubbing or cyanosis. Peripheral pulses intact. Trace bilateral lower extremity edema with dry flaky skin NEUROLOGIC: Awake and alert. Oriented x 2. ASSESSMENT: Right distal femur fracture, patient is scheduled for retrograde IM nail right distal femur fracture on 08/31 Paroxysmal atrial fibrillation currently in a sinus rhythm Chronic diastolic heart failure stable Sick sinus syndrome with previous pacemaker implantation Peripheral vascular disease with previous stenting Hypertension Hyperlipidemia Chronic kidney disease PLAN: Continue patient's home cardiac medications Patient is at high risk for complications during surgery due to multiple comorbidities including atrial fibrillation and CHF. However, benefits outweigh risk and is nothing prohibiting surgical intervention. No need to repeat echocardiogram Xarelto has been placed on hold Further recommendations pending patient's course Nurse practitioner note has been reviewed by physician. Signing provider agrees with the documented findings, assessment, and plan of care. Objective - Vital Signs Vital signs: Vital Signs Temp 97.7 F 09/01/23 01:42 Pulse 58 L 09/01/23 01:42 Resp 17 09/01/23 01:42 BP 94/54 09/01/23 05:23 Pulse Ox 99 09/01/23 05:27 FiO2 Intake & Output 08/31/23 09/01/23 09/01/23 18:59 06:59 18:59 Output Total 1300 Balance -1300 Weight 58.967 kg 58.967 kg Output: Urine 650 Uretheral (Myrick) 650 Post Void Residual 650 Other: Voiding Method External Catheter # Voids 1 - Labs CBC & Chem 7: 08/31/23 11:13 08/31/23 11:13 Labs: Abnormal Lab Results - Last 24 Hours (Table) 08/01/23 08/31/23 08/31/23 Range/Units 01:45 11:13 11:13 WBC 11.5 H (3.8-10.6) k/uL MCHC 30.4 L (31.0-37.0) g/dL RDW 17.8 H (11.5-15.5) % Neutrophils # 9.5 H (1.3-7.7) k/uL PT 15.7 H (10.0-12.5) sec INR 1.5 H (<1.2) APTT 32.0 H (22.0-30.0) sec Sodium (137-145) mmol/L Chloride (98-107) mmol/L Carbon Dioxide (22-30) mmol/L BUN (7-17) mg/dL Creatinine (0.52-1.04) mg/dL Glucose (74-99) mg/dL Total Bilirubin (0.2-1.3) mg/dL AST (14-36) U/L Alkaline Phosphatase (38-126) U/L Albumin (3.5-5.0) g/dL Urine Appearance Cloudy H (Clear) Urine Protein Trace H (Negative) Urine Blood Small H (Negative) Ur Leukocyte Esterase Large H (Negative) Urine WBC >182 H (0-5) /hpf Urine WBC Clumps Many H (None) /hpf Urine Bacteria Many H (None) /hpf Hyaline Casts 10 H (0-2) /lpf Urine Mucus Rare H (None) /hpf 08/31/23 Range/Units 11:13 WBC (3.8-10.6) k/uL MCHC (31.0-37.0) g/dL RDW (11.5-15.5) % Neutrophils # (1.3-7.7) k/uL PT (10.0-12.5) sec INR (<1.2) APTT (22.0-30.0) sec Sodium 136 L (137-145) mmol/L Chloride 96 L (98-107) mmol/L Carbon Dioxide 33 H (22-30) mmol/L BUN 27 H (7-17) mg/dL Creatinine 1.59 H (0.52-1.04) mg/dL Glucose 113 H (74-99) mg/dL Total Bilirubin 2.0 H (0.2-1.3) mg/dL AST 37 H (14-36) U/L Alkaline Phosphatase 134 H (38-126) U/L Albumin 3.0 L (3.5-5.0) g/dL Urine Appearance (Clear) Urine Protein (Negative) Urine Blood (Negative) Ur Leukocyte Esterase (Negative) Urine WBC (0-5) /hpf Urine WBC Clumps (None) /hpf Urine Bacteria (None) /hpf Hyaline Casts (0-2) /lpf Urine Mucus (None) /hpf
--- NOTE | 2023-09-01 11:53 | P.PN ---
Subjective Progress Note Date: 09/01/23 Principal diagnosis: Right distal femur fracture Patient is examined today, she is resting in her hospital bed. She is utilizing the immobilizer. She notes most discomfort when she moves the leg. She has been evaluated by both cardiology and internal medicine who cleared her for surgery. Continue n.p.o. diet at this time. Objective - Vital Signs Vital signs: Vital Signs Temp 97.7 F 09/01/23 01:42 Pulse 58 L 09/01/23 01:42 Resp 17 09/01/23 01:42 BP 94/54 09/01/23 05:23 Pulse Ox 99 09/01/23 05:27 FiO2 Intake & Output 08/31/23 09/01/23 09/01/23 18:59 06:59 18:59 Output Total 1300 Balance -1300 Weight 58.967 kg 58.967 kg Output: Urine 650 Uretheral (Myrick) 650 Post Void Residual 650 Other: Voiding Method External Catheter External Catheter # Voids 1 - Exam Right lower extremity: There are no open lesions or sores visualized surrounding the knee. Soft tissue swelling and ecchymosis is present. Erasto bandages present from the rueda past the foot for peripheral vascular disease. Obvious tenderness with palpation to the distal femur and surrounding knee. No notable effusion in the knee at this time. Range of motion at the knee and hip was very limited due to pain. Plantarflexion, dorsiflexion, EHL, FHL are intact. Skin is warm to touch throughout the extremity, she is able to wiggle the toes with no difficulty. Calf is soft, no tenderness with palpation. - Labs CBC & Chem 7: 08/31/23 11:13 08/31/23 11:13 Labs: Abnormal Lab Results - Last 24 Hours (Table) 08/01/23 08/31/23 Range/Units 01:45 11:13 Sodium 136 L (137-145) mmol/L Chloride 96 L (98-107) mmol/L Carbon Dioxide 33 H (22-30) mmol/L BUN 27 H (7-17) mg/dL Creatinine 1.59 H (0.52-1.04) mg/dL Glucose 113 H (74-99) mg/dL Total Bilirubin 2.0 H (0.2-1.3) mg/dL AST 37 H (14-36) U/L Alkaline Phosphatase 134 H (38-126) U/L Albumin 3.0 L (3.5-5.0) g/dL Urine Appearance Cloudy H (Clear) Urine Protein Trace H (Negative) Urine Blood Small H (Negative) Ur Leukocyte Esterase Large H (Negative) Urine WBC >182 H (0-5) /hpf Urine WBC Clumps Many H (None) /hpf Urine Bacteria Many H (None) /hpf Hyaline Casts 10 H (0-2) /lpf Urine Mucus Rare H (None) /hpf Assessment and Plan Assessment: Right oblique distal third femur fracture Status post fall from standing Severe right knee osteoarthritis Severe right hip osteoarthritis Previous left total hip arthroplasty Multiple medical comorbidities Plan: Pain control, both IV and oral medications as needed Continue n.p.o. diet Nonweightbearing right lower extremity, utilize knee immobilizer Urinary catheter recommended DVT prophylaxis, hold Xarelto at this time, plan to restart after surgery Medical and cardiac recommendations appreciated PT/OT evaluation after surgery Surgery scheduled for 09/01/2023 Time with Patient: Less than 30
--- NOTE | 2023-09-01 15:45 | P.PN ---
Progress Note - Text Progress Note Date: 09/01/23 - Chief Complaint Right hip pain - History of Present Illness This is a pleasant 87-year-old patient, follows with Dr. Powers. Chronic stable medical conditions include atrial fibrillation, CAD, CHF, COPD, hypertension hyperlipidemia, chronic lymphedema, DJD prior history of CAD with stent. At baseline does use a walker. No chest pain or short of breath. Patient took a fall with pain in the right leg. X-ray confirmed right distal femur fracture with slight displacement. Brace was placed in the ER. Pain in the operative site. No nausea vomiting. August 31: Laying in bed. Tired. Jacki mobilizer on the right leg. Being sched uled for surgery. No chest pain. Breathing stable. Active Medications Hydrocodone Bitart/Acetaminophen (Hydrocodone/Apap 5-325mg 1 Each Tab) 1 each PO Q4HR PRN PRN Reason: Pain Last Admin: 09/01/23 11:30 Dose: 1 each Albuterol/Ipratropium (Ipratropium-Albuterol 3 Ml Neb) 3 ml INHALATION RT-Q6H PRN PRN Reason: Shortness Of Breath Allopurinol (Allopurinol 100 Mg Tab) 100 mg PO DAILY [facility] Last Admin: 09/01/23 08:10 Dose: Not Given Amiodarone HCl (Amiodarone 200 Mg Tab) 200 mg PO DAILY [facility] Last Admin: 09/01/23 08:34 Dose: 200 mg Atorvastatin Calcium (Atorvastatin 40 Mg Tab) 40 mg PO HS [facility] Last Admin: 08/31/23 20:58 Dose: 40 mg Hydromorphone HCl (Hydromorphone 0.5 Mg/0.5 Ml Syringe) 0.5 mg IVP Q3HR PRN PRN Reason: Pain Scale 9 To 10 Hydromorphone HCl (Hydromorphone 0.5 Mg/0.5 Ml Syringe) 0.5 mg IVP Q5M PRN PRN Reason: Phase 1 or 2 - Pain Control Stop: 09/01/23 23:00 Lactated Ringer's (Lactated Ringers) 1,000 mls @ 20 mls/hr IV .Q24H [facility] Last Admin: 09/01/23 02:22 Dose: 20 mls/hr Lactic Acid (Ammonium Lactate 12% Lotion 225 Gm Btl) 1 applic TOPICAL BID@0900,1400 [facility]; Protocol Last Admin: 09/01/23 15:03 Dose: Not Given Levothyroxine Sodium (Levothyroxine 50 Mcg Tab) 50 mcg PO DAILY@0600 [facility] Last Admin: 09/01/23 05:21 Dose: 50 mcg Lidocaine HCl (Lidocaine 1% (10mg/Ml) For Iv Start) 0.1 ml INTRADERMA PER PROTOCOL PRN PRN Reason: IV Start Magnesium Hydroxide (Magnesium Hydroxide 2,400 Mg/30 Ml Cup) 2,400 mg PO DAILY PRN PRN Reason: Constipation Metoprolol Succinate (Metoprolol Succinate (Er) 50 Mg Tab.Er.24h) 50 mg PO BID [facility] Last Admin: 09/01/23 08:34 Dose: 50 mg Naloxone HCl (Naloxone 0.4 Mg/Ml 1 Ml Vial) 0.2 mg IV Q2M PRN PRN Reason: Opioid Reversal Last Admin: 08/31/23 16:45 Dose: 0.2 mg Ondansetron HCl (Ondansetron 4 Mg/2 Ml Vial) 4 mg IVP Q8HR PRN PRN Reason: Nausea And Vomiting Pantoprazole Sodium (Pantoprazole 40 Mg Tablet) 40 mg PO 0730 [facility] Last Admin: 09/01/23 05:21 Dose: 40 mg Potassium Chloride (Potassium Chloride Er 20 Meq Tab.Er) 20 meq PO BID@0900,1700 [facility] Last Admin: 09/01/23 08:10 Dose: Not Given Senna/Docusate Sodium (Sennosides-Docusate Sodium 1 Each Tab) 1 each PO DAILY [facility] Last Admin: 09/01/23 08:10 Dose: Not Given Silver Sulfadiazine (Silver Sulfadiazine 1% Cream 25 Gm Tube) 1 applic TOPICAL BID [facility]; Protocol Last Admin: 09/01/23 08:34 Dose: Not Given Torsemide (Torsemide 20 Mg Tab) 40 mg PO DAILY@0600 [facility] Last Admin: 09/01/23 05:23 Dose: Not Given Torsemide (Torsemide 20 Mg Tab) 20 mg PO DAILY@1400 [facility] Last Admin: 09/01/23 15:04 Dose: Not Given Social history: Lives at [facility]. Uses a walker. Patient smoked a pack a day for about 70 years. Stopped in 2019. No alcohol intake. Physical examination: VITAL SIGNS: 97.6, 60, 17, 109 x 69, 92% room air GENERAL: Resting bed, tired, sleepy. EYES: Pupils equal. Conjunctiva tony l. HEENT: External appearance of nose and ears normal, oral cavity grossly normal. NECK: JVD not raised; masses not palpable. HEART: First and second heart sounds are normal; no edema. LUNGS: Respiratory rate normal; decreased breath sound. ABDOMEN: Soft, nontender, liver spleen not palpable, no masses palpable. PSYCH: Sleepy, but able to answer q simple questions MUSCULOSKELETAL:No Clubbing/cyanosis;muscles-grossly intact. OA in several joints. Right knee in immobilizer brace. Edema in both lower extremity. Some skin discoloration distally INVESTIGATIONS, reviewed in the clinical context: August 31, 2023: White count 11.5 hemoglobin 12.8 platelets 251 sodium 136 potassium 4.8 BUN 33 creatinine 27 creatinine 1.59 AST 37 ALT 19 EKG tracing personally reviewed by me-sinus rhythm. Nonspecific T wave Changes Chest x-ray film personally reviewed by me-cardiomegaly. Some venous prominence. X-ray of the right knee and hip: Distal femoral diaphyseal oblique fracture with mild diastases. Advanced DJD of the right knee. Left hip prosthesis. Assessment plan: -Acute right distal femoral diaphyseal oblique fracture with mild diastasis. Secondary to fall. Right leg/knee in a brace. For surgical intervention per orthopedics. -CAD with a prior history of stent Patient not on aspirin per home medications. But is on Xarelto. Latter which is held. -Paroxysmal atrial fibrillation currently in sinus rhythm Toprol-XL 50 mg twice daily. Xarelto held for now. -GERD Protonix 40 mg a day -Hypothyroid Synthroid 50 mcg a day -Hyperlipidemia Lipitor 40 mg nightly -Primary osteoarthritis Pain medication as needed -Chronic congestive heart failure from diastolic dysfunction EF 55 to 60% [July 2023]: Stable Continue with home dose of diuretic -COPD and ex-smoker DuoNeb 4 times daily to optimize pulmonary function perioperatively. -Chronic gait dysfunction, uses a walker at baseline -DNR. -Perioperative cardiovascular risk: Patient has advanced age and multiple medical problems. Decreased exercise tolerance does use a walker at baseline. Also has CAD with stent. Patient is a moderate risk from a cardiovascular standpoint with no absolute contraindications. For the course of the procedure patient CODE STATUS will be changed to full code No family at the bedside. Patient n.p.o. after midnight except medications. Xarelto has been held for now. Pending surgery. Being followed by cardiology. Thank you Dr. 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 aortogram, ERCP, 4 cardiac stents, left hip replacement Past Anesthesia/Blood Transfusion Reactions: Family History of Problems w/ Anesthesia Additional Past Anesthesia/Blood Transfusion Reaction / Comm: sister-long time to come out Date of Last Stent Placement:: 2010? Type of Cardiac Device: Permanent Pacemaker Device Placement Date:: 2023 replaced Past Psychological History: No Psychological Hx Reported Smoking Status: Former smoker Past Alcohol Use History: None Reported Additional Past Alcohol Use History / Comment(s): Patient quit smoking in 2019. She smoked one pack per day for 70 years Past Drug Use History: None Reported
[2023-09-01] MEDS: LACTATED RINGERS 1,000 ML IV ONE ×2 (16:26→19:44)
[2023-09-01] MEDS: DEXAMETHASONE SOD PHOSPHATE 4 MG/ML 1 ML VIAL IVP ONE (16:47)
[2023-09-01] MEDS: ONDANSETRON 4 MG/2 ML VIAL IVP ONE (16:47)
[2023-09-01] MEDS ORDERED: KETAMINE HCL IN 0.9 % NACL 50 MG/5 ML SYRINGE ONE (17:08)
[2023-09-01] MEDS ORDERED: GLYCOPYRROLATE 0.2 MG/ML 2 ML VIAL ONE (17:08)
[2023-09-01] MEDS ORDERED: SUCCINYLCHOLINE CHLORIDE 200 MG/10 ML VIAL IV ONE (17:08)
[2023-09-01] MEDS ORDERED: PROPOFOL 10 MG/ML 20 ML VIAL IV ONE (17:08)
[2023-09-01] MEDS ORDERED: NEOSTIGMINE 1 MG/ML 10 ML VIAL ONE (17:08)
[2023-09-01] MEDS ORDERED: fentaNYL (PF) 50 MCG/ML 2 ML AMP ONE (17:08)
[2023-09-01] MEDS ORDERED: SUGAMMADEX SODIUM 200 MG/2 ML SDV IV ONE (17:08)
[2023-09-01] MEDS ORDERED: ePHEDrine 50 MG/ML 1 ML VIAL ONE (17:08)
[2023-09-01] MEDS ORDERED: ROCURONIUM 10 MG/ML (5 ML VIAL) IV ONE (17:08)
[2023-09-01] MEDS ORDERED: LIDOCAINE 1% INJ 10MG/ML (20 ML MDV) ONE (17:08)
[2023-09-01] MEDS ORDERED: ceFAZolin 1 GM/50 ML BAG (PMX) ONE (17:08)
[2023-09-01] MEDS: SODIUM CHLORIDE 0.9% 50 ML with ceFAZolin 2,000 MG IV ONE (17:12)
--- NOTE | 2023-09-01 18:45 | P.OP ---
Date of Procedure: 09/01/23 Preoperative Diagnosis: Comminuted displaced right distal femur fracture Postoperative Diagnosis: Comminuted displaced right distal femur fracture Procedure(s) Performed: Retrograde intramedullary nailing right femur Implants: 1. Synthes retrograde femoral nail 12 mm x 300 mm with a 5 degree bend 2. Synthes distal locking screws- 5 mm / 95 mm, 5 mm / 70 mm, 5 mm / 84 mm, 5 mm / 34 mm Anesthesia: MACI Surgeon: Duc Horner Postal Delivery Officer #1: Sudhakar Wood Estimated Blood Loss (ml): 25 Pathology: none sent Condition: stable Disposition: PACU Indications for Procedure: 87-year-old patient seen with a displaced comminuted right distal femur fracture. After having treatment options discussed, she elected to proceed with retrograde intramedullary nailing. Operative Findings: See description of procedure Description of Procedure: The patient was taken to the operative suite. She underwent a general anesthetic by the department of anesthesia. Patient was transferred to the operative table. She received preoperative IV antibiotics. The right lower extremity was prepped and draped in normal sterile orthopedic fashion. The C- arm was brought into the operative field. The leg was paced on a radiopaque triangle. We noted a comminuted distal femur fracture with displacement. I was able to reduce it on the operative table with the assistance of Jonathan BRIZUELA. I now made an incision along the midportion of the patellar tendon beginning at the patella all the way down to the tibial tubercle sharply through skin. I dissected down to the patellar tendon. I made incision through the patellar tendon. I placed a wheat [place] in the to retract the wound. We dissected down to the notch. I used a sleeve protector and introduced the guidewire into the center portion of the notch. I confirmed adequate positioning on AP and lateral intraoperative imaging. I now used an entry reamer. I then read used a guidewire and passed it through our proximal femoral canal confirming that an AP and lateral intraoperative imaging. We then checked the length of the guidewire at 300 mm. We then began serial reaming all the way to a 13. We now introduced a 12 mm x 300 mm Synthes retrograde femoral nail over the guidewire and slid into the proximal femoral canal. I confirmed this under intraoperative fluoroscopic imaging. We then placed allograft placed. We then introduced 2 distal locking screws and 1 oblique screw with reasonable purchase noted. This is all done under fluoroscopy. The outrigger was removed. We had good fixation and placement of the hardware distally. The fracture. Well reduced. We now took our radiopaque triangle lock. We now straighten out the leg and brought the C arm proximally to lock our nail proximally. I made an incision along the anterior aspect of the proximal femur/thigh. I dissected down to the bone. I drilled our proximal locking screw hole and noticed appropriate length screw with good purchase noted. The entire construct were now visualized under fluoroscopic imaging we noted adequate reduction of the fracture with good placement of hardware. Spot films were obtained to document that. The C-arm was pulled back. All wounds irrigated with saline solution. The patellar tendon was repaired with #1 Vicryl. All subcutaneous soft tissues repaired with 2-0 Vicryl. All skin incisions were repaired with gibran. Sterile dressings were applied. The patient was placed into a knee immobilizer awakened and transferred to bed and recovery in stable condition. Jonathan BRIZUELA assisted in all aspects of this procedure.
[2023-09-01] MEDS: fentaNYL (PF) 50 MCG/1 ML VIAL IVP ONE ×2 (19:26→19:30)
--- NOTE | 2023-09-01 19:43 | FL ---
EXAMINATION TYPE: FL guidance operating room, XR femur RT Intraoperative/procedural fluoroscopic serv ices were provided. Total fluoroscopy time is 1.44 minutes with a total of 3 submitted images to PACS . Please see the operative/procedural note for further details. DAP: 5.4953 Gycm2
[2023-09-01] MEDS: traMADol 50 MG TAB PO PRN (22:38)
[2023-09-02] MEDS: HYDROcodone/APAP 7.5-325MG 1 EACH TAB PO PRN (06:23)
[2023-09-02 08:14] LABS: Anisocytosis Slight; Basophils % (A) 0 %; Eosinophils % (A) 0 %; HCT 35.1 % (34.0-46.0); HGB 10.2 gm/dL (11.4-16.0); Hypochromasia Marked; Lymphocytes # (A) 0.6 k/uL (1.0-4.8); Lymphocytes % (A) 7 %; MCH 29.1 pg (25.0-35.0); MCHC 29.2 g/dL (31.0-37.0); MCV 99.9 fL (80.0-100.0); Macrocytosis Slight; Mean Platelet Volume 8.4; Monocytes # (A) 0.6 k/uL (0-1.0); Monocytes % (A) 7 %; Neutrophils # (A) 7.5 k/uL (1.3-7.7); Neutrophils % (A) 85 %; Platelet Count 211 k/uL (150-450); RBC 3.51 m/uL (3.80-5.40); WBC 8.8 k/uL (3.8-10.6)
[2023-09-02 08:26] LABS: African American GFR (CKD) 24 (>60 ml/min/1.73 sqM); Anion Gap 6 mmol/L; Blood Urea Nitrogen 37 mg/dL (7-17); Calcium 8.3 mg/dL (8.4-10.2); Carbon Dioxide 32 mmol/L (22-30); Chloride 97 mmol/L (98-107); Glucose 144 mg/dL (74-99); Non-African American GFR(CKD) 21 (>60 ml/min/1.73 sqM); Potassium 5.3 mmol/L (3.5-5.1); Sodium 135 mmol/L (137-145)
[2023-09-02] MEDS: MAGNESIUM HYDROXIDE 2,400 MG/30 ML CUP PO SCH (09:27)
[2023-09-02] MEDS: SENNOSIDES-DOCUSATE SODIUM 1 EACH TAB PO SCH (09:28)
[2023-09-02] MEDS: SODIUM CHLORIDE 0.9% 500 ML 500 ML IV ONE (11:24)
--- NOTE | 2023-09-02 11:27 | P.PN ---
Subjective Progress Note Date: 09/02/23 Principal diagnosis: Right distal femur fracture, status post retrograde intramedullary nail Patient was evaluated at bedside today, she is actually up in her hospital chair. The urinary catheter remains in place. The postop dressing and Erasto bandage along with knee immobilizer in place. Patient states most pain is noticed when she tries to ambulate. She was able to rest the foot on the ground, she did require multiple assistance when transferring. Objective - Vital Signs Vital signs: Vital Signs Temp 97.5 F L 09/02/23 07:04 Pulse 62 09/02/23 07:04 Resp 18 09/02/23 07:04 BP 90/56 09/02/23 07:04 Pulse Ox 96 09/02/23 07:04 FiO2 Intake & Output 09/01/23 09/02/23 09/02/23 18:59 06:59 18:59 Intake Total 750 300 Output Total 125 600 Balance 625 -300 Intake: IV 750 300 Output: Urine 100 600 Estimated Blood Loss 25 Other: Voiding Method External Catheter Indwelling Catheter Indwelling Catheter - Exam Right lower extremity: Erasto bandages in good position and condition, knee immobilizer is in adequate position Skin is warm to touch throughout the extremity, she is able to wiggle the toes with no difficulty. Calf is soft, no tenderness with palpation. - Labs CBC & Chem 7: 09/02/23 07:34 09/02/23 07:34 Labs: Abnormal Lab Results - Last 24 Hours (Table) 09/02/23 09/02/23 Range/Units 07:34 07:34 RBC 3.51 L (3.80-5.40) m/uL Hgb 10.2 L (11.4-16.0) gm/dL MCHC 29.2 L (31.0-37.0) g/dL RDW 18.0 H (11.5-15.5) % Lymphocytes # 0.6 L (1.0-4.8) k/uL Sodium 135 L (137-145) mmol/L Potassium 5.3 H (3.5-5.1) mmol/L Chloride 97 L (98-107) mmol/L Carbon Dioxide 32 H (22-30) mmol/L BUN 37 H (7-17) mg/dL Creatinine 2.09 H (0.52-1.04) mg/dL Glucose 144 H (74-99) mg/dL Calcium 8.3 L (8.4-10.2) mg/dL Assessment and Plan Assessment: Right oblique distal third femur fracture, status post closed reduction with retrograde intramedullary nail Status post fall from standing Severe right knee osteoarthritis Severe right hip osteoarthritis Previous left total hip arthroplasty Multiple medical comorbidities Plan: Pain control, both IV and oral medications as needed Regular diet Courage incentive spirometer Toe-touch weightbearing right lower extremity, recommend utilizing knee immobilizer when transferring, okay to remove while stationary DVT prophylaxis, okay to restart normal anticoagulant Medical and cardiac recommendations appreciated PT/OT evaluation Discharge planning: Patient will require subacute rehab, anticipate discharge in the next 24-48 hours Time with Patient: Less than 30
--- NOTE | 2023-09-02 12:06 | P.PN ---
Subjective Progress Note Date: 09/02/23 Reason for Consult (text): Cardiac clearance, surgical clearance History of present illness: HISTORY OF PRESENT ILLNESS: This is a 87-year-old female patient of Dr. Teague with a past medical history significant for persistent atrial fibrillation, chronic diastolic heart failure, coronary artery disease with previous stenting of the mid RCA in 2011, peripheral vascular disease with previous stenting, hypertension, hyperlipidemia, and sick sinus syndrome with pacemaker implantation. We have been asked to evaluate the patient for preop clearance. Patient gives history that she was at home and turned around, knee gave out on her and she had a fall. Patient has been found to have a right distal femur fracture. Patient is seen today in the ER hallway she is waiting for bed on the [facility] floor. Patient denies any loss of consciousness. No chest pain or pressure. She states she has been taking all of her medications as directed. Her last Xarelto was taken on 08/29. Patient had a recent hospitalization in July at which time she was seen by cardiology for acute on chronic heart failure as well as lower extremity cellulitis. Patient was discharged to [facility] and has subsequently been discharged home. EKG reveals sinus rhythm left axis deviation Chest xray: Cardiomegaly. No acute pulmonary process. WBC 11.5, hemoglobin 12.8. INR 1.5. Sodium 136, potassium 4.8, CO2 33, BUN 27 creatinine 1.59. Blood sugar 113. AST 37, ALT 19, alkaline phosphatase 134. Total bilirubin 2. Current home cardiac medications: Amiodarone 200 mg daily, atorvastatin 40 mg at bedtime, metoprolol succinate 50 mg twice daily, potassium chloride 20 mill equivalents twice daily, Xarelto 15 mg daily, torsemide 40 mg in the morning and 20 mg in the afternoon. Most recent echocardiogram obtained in 07/31/2023 reveals ejection fraction 55- 60%, technically difficult study. Normal LV systolic function. Mild to moderate mitral regurgitation. Patient underwent Lexiscan stress test in January 2020 which was negative for ischemia 08/31 Patient is scheduled for IM nail of the right distal femur fracture. She complains of pain to the right leg. No complaints of chest pain or shortness of breath. Blood pressure 94/54, heart rate 58, pulse ox 99% on 2 L nasal cannula. 09/01 Patient underwent IM nailing yesterday. Blood pressures soft at 90/56, heart rate 62, she has been afebrile, pulse ox 96% on 2 L nasal cannula. Patient states that she has not been eating or drinking very much. Torsemide dose last evening and this morning have been held. Repeat lab work reveals WBC 8.8, hemoglobin 10.2. Sodium 135, potassium 5.3, chloride 97, CO2 32, BUN 37 creatinine 2.09. PHYSICAL EXAM: VITAL SIGNS: Reviewed. GENERAL: Well-developed in no acute distress. HEENT: Head is normocephalic. Pupils are equal, round. Sclerae anicteric. Mucous membranes of the mouth are moist. Neck supple. No JVD or thyromegaly LUNGS: Respirations even and unlabored. Lungs essentially clear to auscultation bilaterally. HEART: Irregular rate and rhythm. S1 and S2 heard. ABDOMEN: Soft. Nondistended. Nontender. EXTREMITIES: Normal range of motion. No clubbing or cyanosis. Peripheral pulses intact. Trace bilateral lower extremity edema with dry flaky skin NEUROLOGIC: Awake and alert. Oriented x 2. ASSESSMENT: Right distal femur fracture, status post retrograde IM nail right distal femur fracture on 08/31 Paroxysmal atrial fibrillation currently in a sinus rhythm Chronic diastolic heart failure stable Sick sinus syndrome with previous pacemaker implantation Peripheral vascular disease with previous stenting Hypertension Hyperlipidemia Chronic kidney disease Acute kidney injury Hyperkalemia Hypotension PLAN: Continue patient's home cardiac medications Orthopedic surgery has cleared patient to resume Xarelto Hold torsemide and potassium due to acute kidney injury and hyperkalemia IV fluid bolus 500 mL x 1 Further recommendations pending patient's course Nurse practitioner note has been reviewed by physician. Signing provider agrees with the documented findings, assessment, and plan of care. Objective - Vital Signs Vital signs: Vital Signs Temp 97.5 F L 09/02/23 07:04 Pulse 62 09/02/23 07:04 Resp 18 09/02/23 07:04 BP 90/56 09/02/23 07:04 Pulse Ox 96 09/02/23 07:04 FiO2 Intake & Output 09/01/23 09/02/23 09/02/23 18:59 06:59 18:59 Intake Total 750 300 Output Total 125 600 Balance 625 -300 Intake: IV 750 300 Output: Urine 100 600 Estimated Blood Loss 25 Other: Voiding Method External Catheter Indwelling Catheter - Labs CBC & Chem 7: 09/02/23 07:34 09/02/23 07:34 Labs: Abnormal Lab Results - Last 24 Hours (Table) 09/02/23 09/02/23 Range/Units 07:34 07:34 RBC 3.51 L (3.80-5.40) m/uL Hgb 10.2 L (11.4-16.0) gm/dL MCHC 29.2 L (31.0-37.0) g/dL RDW 18.0 H (11.5-15.5) % Lymphocytes # 0.6 L (1.0-4.8) k/uL Sodium 135 L (137-145) mmol/L Potassium 5.3 H (3.5-5.1) mmol/L Chloride 97 L (98-107) mmol/L Carbon Dioxide 32 H (22-30) mmol/L BUN 37 H (7-17) mg/dL Creatinine 2.09 H (0.52-1.04) mg/dL Glucose 144 H (74-99) mg/dL Calcium 8.3 L (8.4-10.2) mg/dL
--- NOTE | 2023-09-02 16:26 | P.PN ---
Progress Note - Text Progress Note Date: 09/02/23 - Chief Complaint Right hip pain - History of Present Illness This is a pleasant 87-year-old patient, follows with Dr. Powers. Chronic stable medical conditions include atrial fibrillation, CAD, CHF, COPD, hypertension hyperlipidemia, chronic lymphedema, DJD prior history of CAD with stent. At baseline does use a walker. No chest pain or short of breath. Patient took a fall with pain in the right leg. X-ray confirmed right distal femur fracture with slight displacement. Brace was placed in the ER. Pain in the operative site. No nausea vomiting. August 31: Laying in bed. Tired. Jacki mobilizer on the right leg. Being sched uled for surgery. No chest pain. Breathing stable. September 01: Yesterday patient underwent IM nailing of the right femur. Up in a recliner. Immobilizer in place. Pain present. Ate some breakfast and lunch. Looking at rehab inpatient. Active Medications Hydrocodone Bitart/Acetaminophen (Hydrocodone/Apap 7.5-325mg 1 Each Tab) 1 each PO Q4HR PRN PRN Reason: Pain Last Admin: 09/02/23 15:44 Dose: 1 each Albuterol/Ipratropium (Ipratropium-Albuterol 3 Ml Neb) 3 ml INHALATION RT-Q6H PRN PRN Reason: Shortness Of Breath Allopurinol (Allopurinol 100 Mg Tab) 100 mg PO DAILY [facility] Last Admin: 09/02/23 09:28 Dose: 100 mg Amiodarone HCl (Amiodarone 200 Mg Tab) 200 mg PO DAILY [facility] Last Admin: 09/02/23 09:32 Dose: Not Given Atorvastatin Calcium (Atorvastatin 40 Mg Tab) 40 mg PO HS [facility] Last Admin: 09/01/23 20:32 Dose: 40 mg Lactated Ringer's (Lactated Ringers) 1,000 mls @ 20 mls/hr IV .Q24H [facility] Last Admin: 09/01/23 20:19 Dose: Not Given Lactic Acid (Ammonium Lactate 12% Lotion 225 Gm Btl) 1 applic TOPICAL BID@0900,1400 [facility]; Protocol Last Admin: 09/02/23 13:51 Dose: 1 applic Levothyroxine Sodium (Levothyroxine 50 Mcg Tab) 50 mcg PO DAILY@0600 [facility] Last Admin: 09/02/23 06:23 Dose: 50 mcg Lidocaine HCl (Lidocaine 1% (10mg/Ml) For Iv Start) 0.1 ml INTRADERMA PER PROTOCOL PRN PRN Reason: IV Start Magnesium Hydroxide (Magnesium Hydroxide 2,400 Mg/30 Ml Cup) 2,400 mg PO DAILY [facility] Last Admin: 09/02/23 09:27 Dose: 2,400 mg Metoprolol Succinate (Metoprolol Succinate (Er) 25 Mg Tab.Er.24h) 25 mg PO BID [facility] Naloxone HCl (Naloxone 0.4 Mg/Ml 1 Ml Vial) 0.2 mg IV Q2M PRN PRN Reason: Opioid Reversal Last Admin: 08/31/23 16:45 Dose: 0.2 mg Ondansetron HCl (Ondansetron 4 Mg/2 Ml Vial) 4 mg IVP Q8HR PRN PRN Reason: Nausea And Vomiting Pantoprazole Sodium (Pantoprazole 40 Mg Tablet) 40 mg PO 0730 [facility] Last Admin: 09/02/23 06:23 Dose: 40 mg Rivaroxaban (Rivaroxaban 15 Mg Tab) 15 mg PO DAILY@1700 [facility]; Protocol Senna/Docusate Sodium (Sennosides-Docusate Sodium 1 Each Tab) 2 each PO DAILY [facility] Last Admin: 09/02/23 09:28 Dose: 2 each Silver Sulfadiazine (Silver Sulfadiazine 1% Cream 25 Gm Tube) 1 applic TOPICAL BID [facility]; Protocol Last Admin: 09/02/23 13:48 Dose: 1 applic Tramadol HCl (Tramadol 50 Mg Tab) 50 mg PO QID PRN PRN Reason: Breakthrough Pain Last Admin: 09/02/23 09:07 Dose: 50 mg Social history: Lives at [facility]. Uses a walker. Patient smoked a pack a day for about 70 years. Stopped in 2018. No alcohol intake. Physical examination: VITAL SIGNS: 97.3, 60, 18, 136 x 74, 97% on 2 L GENERAL: Up in a recliner, awake EYES: Pupils equal. Conjunctiva tony l. HEENT: External appearance of nose and ears normal, oral cavity grossly normal. NECK: JVD not raised; masses not palpable. HEART: First and second heart sounds are normal; no edema. LUNGS: Respiratory rate normal; decreased breath sound. ABDOMEN: Soft, nontender, liver spleen not palpable, no masses palpable. PSYCH: Sleepy, but able to answer q simple questions MUSCULOSKELETAL:No Clubbing/cyanosis;muscles-grossly intact. OA in several joints. Right knee in immobilizer brace. Edema in both lower extremity. Some skin discoloration distally INVESTIGATIONS, reviewed in the clinical context: September 01: White count 8.8 hemoglobin 10.2 platelets 211 potassium 5.3 BUN 37 creatinine 2.09 August 31, 2023: White count 11.5 hemoglobin 12.8 platelets 251 sodium 136 potassium 4.8 BUN 33 creatinine 27 creatinine 1.59 AST 37 ALT 19 EKG tracing personally reviewed by me-sinus rhythm. Nonspecific T wave Changes Chest x-ray film personally reviewed by me-cardiomegaly. Some venous prominence. X-ray of the right knee and hip: Distal femoral diaphyseal oblique fracture with mild diastases. Advanced DJD of the right knee. Left hip prosthesis. Previous labs: Creatinine 1.8 on July 2021 Assessment plan: -Acute right distal femoral diaphyseal oblique fracture with mild diastasis. Secondary to fall. Right intramedullary nail by Dr. Samuels on August 31. Immobilizer in place. -CAD with a prior history of stent Patient not on aspirin per home medications. Xarelto resumed. -Paroxysmal atrial fibrillation currently in sinus rhythm Toprol-XL 50 mg twice daily. 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 -Hyperlipidemia Lipitor 40 mg nightly -Primary osteoarthritis Pain medication as needed -Chronic congestive heart failure from diastolic dysfunction EF 55 to 60% [July 2023]: Stable Diuretic held for now -COPD and ex-smoker DuoNeb 4 times daily to optimize pulmonary function perioperatively. -Chronic gait dysfunction, uses a walker at baseline -DNR. -Perioperative cardiovascular risk: Patient has advanced age and multiple medical problems. Decreased exercise tolerance does use a walker at baseline. Also has CAD with stent. Patient is a moderate risk from a cardiovascular standpoint with no absolute contraindications. For the course of the procedure patient CODE STATUS will be changed to full code Continue current medications. Some worsening of creatinine. Some gentle hydration overnight. Decreased oral intake. Repeat labs in the morning. IV Ferrlecit. Thank you Dr. 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 aortogram, ERCP, 4 cardiac stents, left hip replacement Past Anesthesia/Blood Transfusion Reactions: Family History of Problems w/ Anesthesia Additional Past Anesthesia/Blood Transfusion Reaction / Comm: sister-long time to come out Date of Last Stent Placement:: 2010? Type of Cardiac Device: Permanent Pacemaker Device Placement Date:: 2023 replaced Past Psychological History: No Psychological Hx Reported Smoking Status: Former smoker Past Alcohol Use History: None Reported Additional Past Alcohol Use History / Comment(s): Patient quit smoking in 2019. She smoked one pack per day for 70 years Past Drug Use History: None Reported
[2023-09-02] MEDS: SODIUM FERRIC GLUCONAT-SUCROSE 125 MG in SODIUM CHLORIDE 0.9% 100 ML IVPB SCH (17:25)
[2023-09-02] MEDS: RIVAROXABAN 15 MG TAB PO SCH (17:25)
[2023-09-02] MEDS: SODIUM CHLORIDE 0.45% 1,000 ML IV SCH (17:27)
[2023-09-02] MEDS: METOPROLOL SUCCINATE (ER) 25 MG TAB.ER.24H PO SCH (21:50)
[2023-09-03 08:21] LABS: African American GFR (CKD) 26 (>60 ml/min/1.73 sqM); Anion Gap 5 mmol/L; Blood Urea Nitrogen 41 mg/dL (7-17); Calcium 8.6 mg/dL (8.4-10.2); Carbon Dioxide 30 mmol/L (22-30); Chloride 98 mmol/L (98-107); Glucose 141 mg/dL (74-99); Non-African American GFR(CKD) 22 (>60 ml/min/1.73 sqM); Potassium 5.2 mmol/L (3.5-5.1); Sodium 133 mmol/L (137-145)
--- NOTE | 2023-09-03 10:39 | P.PN ---
Subjective Progress Note Date: 09/03/23 Principal diagnosis: Right distal femur fracture, status post retrograde intramedullary nail Patient was evaluated at bedside today, is resting in her hospital bed. Patient appears rather comfortable. She states that the pain seems to be controlled with current medications. The knee immobilizer and postop dressing are in good position. Urinary catheter remains in place at this time. Patient has been doing fairly well with transfers from the bed to the chair. She denies any headaches, lightheadedness, chest pain or shortness of breath Objective - Vital Signs Vital signs: Vital Signs Temp 97.5 F L 09/03/23 07:12 Pulse 64 09/03/23 07:12 Resp 20 09/03/23 10:06 BP 113/62 09/03/23 07:12 Pulse Ox 91 L 09/03/23 07:12 FiO2 Intake & Output 09/02/23 09/03/23 09/03/23 18:59 06:59 18:59 Output Total 450 200 Balance -450 -200 Output: Urine 450 200 Other: Voiding Method Indwelling Catheter Indwelling Catheter Indwelling Catheter - Exam Right lower extremity: Erasto bandages in good position and condition, knee immobilizer is in adequate position Skin is warm to touch throughout the extremity, she is able to wiggle the toes with no difficulty. Calf is soft, no tenderness with palpation. - Labs CBC & Chem 7: 09/02/23 07:34 09/03/23 07:23 Labs: Abnormal Lab Results - Last 24 Hours (Table) 09/03/23 Range/Units 07:23 Sodium 133 L (137-145) mmol/L Potassium 5.2 H (3.5-5.1) mmol/L BUN 41 H (7-17) mg/dL Creatinine 1.98 H (0.52-1.04) mg/dL Glucose 141 H (74-99) mg/dL Assessment and Plan Assessment: Postoperative day #2 status post retrograde intramedullary nail for right distal femur fracture Severe right knee osteoarthritis Severe right hip osteoarthritis Previous left total hip arthroplasty Multiple medical comorbidities Plan: Pain control, both IV and oral medications as needed Dressing change to be done by myself on 09/03/2023 Regular diet Courage incentive spirometer Toe-touch weightbearing right lower extremity, recommend utilizing knee immobilizer when transferring, okay to remove while stationary DVT prophylaxis, okay to restart normal anticoagulant Medical recommendations with regards to urinary catheter management Medical and cardiac recommendations appreciated PT/OT evaluation Discharge planning: will discuss with case management options for discharge, orthopedically she is stable for discharge to subacute rehab Time with Patient: Less than 30
--- NOTE | 2023-09-03 12:39 | P.PN ---
Subjective Progress Note Date: 09/03/23 Reason for Consult (text): Cardiac clearance, surgical clearance History of present illness: This is a 87-year-old female patient of Dr. Teague with a past medical history significant for persistent atrial fibrillation, chronic diastolic heart failure, coronary artery disease with previous stenting of the mid RCA in 2011, peripheral vascular disease with previous stenting, hypertension, hyperlipidemia, and sick sinus syndrome with pacemaker implantation. We have been asked to evaluate the patient for preop clearance. Patient gives history that she was at home and turned around, knee gave out on her and she had a fall. Patient has been found to have a right distal femur fracture. Patient is seen today in the ER hallway she is waiting for bed on the [facility] floor. Patient denies any loss of consciousness. No chest pain or pressure. She states she has been taking all of her medications as directed. Her last Xarelto was taken on 08/29. Patient had a recent hospitalization in July at which time she was seen by cardiology for acute on chronic heart failure as well as lower extremity cellulitis. Patient was discharged to [facility] and has subsequently been discharged home. EKG reveals sinus rhythm left axis deviation Chest xray: Cardiomegaly. No acute pulmonary process. WBC 11.5, hemoglobin 12.8. INR 1.5. Sodium 136, potassium 4.8, CO2 33, BUN 27 creatinine 1.59. Blood sugar 113. AST 37, ALT 19, alkaline phosphatase 134. T otal bilirubin 2. Current home cardiac medications: Amiodarone 200 mg daily, atorvastatin 40 mg at bedtime, metoprolol succinate 50 mg twice daily, potassium chloride 20 mill equivalents twice daily, Xarelto 15 mg daily, torsemide 40 mg in the morning and 20 mg in the afternoon. Most recent echocardiogram obtained in 07/31/2023 reveals ejection fraction 55- 60%, technically difficult study. Normal LV systolic function. Mild to moderate mitral regurgitation. Patient underwent Lexiscan stress test in January 2020 which was negative for ischemia 08/31 Patient is scheduled for IM nail of the right distal femur fracture. She complains of pain to the right leg. No complaints of chest pain or shortness of breath. Blood pressure 94/54, heart rate 58, pulse ox 99% on 2 L nasal cannula. 09/01 Patient underwent IM nailing yesterday. Blood pressures soft at 90/56, heart rate 62, she has been afebrile, pulse ox 96% on 2 L nasal cannula. Patient states that she has not been eating or drinking very much. Torsemide dose last evening and this morning have been held. Repeat lab work reveals WBC 8.8, hemoglobin 10.2. Sodium 135, potassium 5.3, chloride 97, CO2 32, BUN 37 creatinine 2.09. 09/02 Patient denies having any chest pain or shortness of breath. Patient is complaining of leg pain. Yesterday we ordered IV fluid bolus of 500 due to worsening renal function and hypotension. Today, blood pressure is improved at 113/62, heart rate 64, pulse ox 91% on 2 L nasal cannula. Repeat blood work reveals sodium 133, potassium 5.2, BUN 41 creatinine 1.98. PHYSICAL EXAM: VITAL SIGNS: Reviewed. GENERAL: Well-developed in no acute distress. HEENT: Head is normocephalic. Pupils are equal, round. Sclerae anicteric. Mucous membranes of the mouth are moist. Neck supple. No JVD or thyromegaly LUNGS: Respirations even and unlabored. Lungs essentially clear to auscultation bilaterally. HEART: Irregular rate and rhythm. S1 and S2 heard. ABDOMEN: Soft. Nondistended. Nontender. EXTREMITIES: Normal range of motion. No clubbing or cyanosis. Peripheral pulses intact. Trace bilateral lower extremity edema with dry flaky skin NEUROLOGIC: Awake and alert. Oriented x 2. ASSESSMENT: Right distal femur fracture, status post retrograde IM nail right distal femur fracture on 08/31 Paroxysmal atrial fibrillation currently in a sinus rhythm Chronic diastolic heart failure stable Sick sinus syndrome with previous pacemaker implantation Peripheral vascular disease with previous stenting Hypertension Hyperlipidemia Chronic kidney disease Acute kidney injury Hyperkalemia Hypotension PLAN: Continue patient's home cardiac medications Patient has been resumed on Xarelto Torsemide and potassium are on hold due to acute kidney injury and hyperkalemia, resume when appropriate Recommend discontinuing IV fluids to avoid fluid overload Cardiology will sign off this case and follow on an as-needed basis. Please reconsult for any new concerns. Patient may follow-up in the office in one to 2 weeks. Nurse practitioner note has been reviewed by physician. Signing provider agrees with the documented findings, assessment, and plan of care. Objective - Vital Signs Vital signs: Vital Signs Temp 97.5 F L 04/05/24 07:12 Pulse 64 09/03/23 07:12 Resp 20 09/03/23 10:06 BP 113/62 09/03/23 07:12 Pulse Ox 91 L 09/03/23 07:12 FiO2 Intake & Output 09/02/23 09/03/23 09/03/23 18:59 06:59 18:59 Output Total 450 200 Balance -450 -200 Output: Urine 450 200 Other: Voiding Method Indwelling Catheter Indwelling Catheter Indwelling Catheter - Labs CBC & Chem 7: 09/02/23 07:34 09/03/23 07:23 Labs: Abnormal Lab Results - Last 24 Hours (Table) 09/03/23 Range/Units 07:23 Sodium 133 L (137-145) mmol/L Potassium 5.2 H (3.5-5.1) mmol/L BUN 41 H (7-17) mg/dL Creatinine 1.98 H (0.52-1.04) mg/dL Glucose 141 H (74-99) mg/dL
--- NOTE | 2023-09-03 15:21 | P.PN ---
Progress Note - Text Progress Note Date: 09/03/23 - Chief Complaint Right hip pain - History of Present Illness This is a pleasant 87-year-old patient, follows with Dr. Powers. Chronic stable medical conditions include atrial fibrillation, CAD, CHF, COPD, hypertension hyperlipidemia, chronic lymphedema, DJD prior history of CAD with stent. At baseline does use a walker. No chest pain or short of breath. Patient took a fall with pain in the right leg. X-ray confirmed right distal femur fracture with slight displacement. Brace was placed in the ER. Pain in the operative site. No nausea vomiting. August 31: Laying in bed. Tired. Jacki mobilizer on the right leg. Being sched uled for surgery. No chest pain. Breathing stable. September 01: Yesterday patient underwent IM nailing of the right femur. Up in a recliner. Immobilizer in place. Pain present. Ate some breakfast and lunch. Looking at rehab inpatient. September 02: Having pain at the operative site. Up in a recliner. Eating about 25 to 50%. Later this afternoon nurse called that patient's oxygenation is decreased. Chest x-ray ordered. Pulmonary consulted. Active Medications Hydrocodone Bitart/Acetaminophen (Hydrocodone/Apap 7.5-325mg 1 Each Tab) 1 each PO Q4HR PRN PRN Reason: Pain Last Admin: 09/03/23 10:26 Dose: 1 each Albuterol/Ipratropium (Ipratropium-Albuterol 3 Ml Neb) 3 ml INHALATION RT-Q6H PRN PRN Reason: Shortness Of Breath Allopurinol (Allopurinol 100 Mg Tab) 100 mg PO DAILY [facility] Last Admin: 09/03/23 08:02 Dose: 100 mg Amiodarone HCl (Amiodarone 200 Mg Tab) 200 mg PO DAILY [facility] Last Admin: 09/03/23 08:03 Dose: 200 mg Atorvastatin Calcium (Atorvastatin 40 Mg Tab) 40 mg PO HS [facility] Last Admin: 09/02/23 21:53 Dose: 40 mg Lactic Acid (Ammonium Lactate 12% Lotion 225 Gm Btl) 1 applic TOPICAL BID@0900,1400 [facility]; Protocol Last Admin: 09/03/23 08:03 Dose: 1 applic Levothyroxine Sodium (Levothyroxine 50 Mcg Tab) 50 mcg PO DAILY@0600 [facility] Last Admin: 09/03/23 06:52 Dose: 50 mcg Lidocaine HCl (Lidocaine 1% (10mg/Ml) For Iv Start) 0.1 ml INTRADERMA PER PROTOCOL PRN PRN Reason: IV Start Magnesium Hydroxide (Magnesium Hydroxide 2,400 Mg/30 Ml Cup) 2,400 mg PO DAILY [facility] Last Admin: 09/03/23 08:03 Dose: 2,400 mg Metoprolol Succinate (Metoprolol Succinate (Er) 25 Mg Tab.Er.24h) 25 mg PO BID [facility] Last Admin: 09/03/23 08:03 Dose: 25 mg Naloxone HCl (Naloxone 0.4 Mg/Ml 1 Ml Vial) 0.2 mg IV Q2M PRN PRN Reason: Opioid Reversal Last Admin: 08/31/23 16:45 Dose: 0.2 mg Ondansetron HCl (Ondansetron 4 Mg/2 Ml Vial) 4 mg IVP Q8HR PRN PRN Reason: Nausea And Vomiting Pantoprazole Sodium (Pantoprazole 40 Mg Tablet) 40 mg PO 0730 [facility] Last Admin: 09/03/23 06:52 Dose: 40 mg Rivaroxaban (Rivaroxaban 15 Mg Tab) 15 mg PO DAILY@1700 [facility]; Protocol Last Admin: 09/02/23 17:25 Dose: 15 mg Senna/Docusate Sodium (Sennosides-Docusate Sodium 1 Each Tab) 2 each PO DAILY [facility] Last Admin: 09/03/23 08:03 Dose: 2 each Silver Sulfadiazine (Silver Sulfadiazine 1% Cream 25 Gm Tube) 1 applic TOPICAL BID [facility]; Protocol Last Admin: 09/03/23 08:04 Dose: 1 applic Tramadol HCl (Tramadol 50 Mg Tab) 50 mg PO QID PRN PRN Reason: Breakthrough Pain Last Admin: 09/02/23 17:25 Dose: 50 mg Social history: Lives at [facility]. Uses a walker. Patient smoked a pack a day for about 70 years. Stopped in 2019. No alcohol intake. Physical examination: VITAL SIGNS: 97.5, 64, 19, 1 one 3 x 62, 91% on 2 L GENERAL: Up in a recliner, tired EYES: Pupils equal. Conjunctiva tony l. HEENT: External appearance of nose and ears normal, oral cavity grossly normal. NECK: JVD not raised; masses not palpable. HEART: First and second heart sounds are normal; no edema. LUNGS: Respiratory rate normal; decreased breath sound. ABDOMEN: Soft, nontender, liver spleen not palpable, no masses palpable. PSYCH: Able to answer simple questions. MUSCULOSKELETAL:No Clubbing/cyanosis;muscles-grossly intact. OA in several joints. Right knee in immobilizer brace. Edema in both lower extremity. Some skin discoloration distally INVESTIGATIONS, reviewed in the clinical context: September 02: Sodium 133 potassium 5.2 creatinine 1.98 September 01: White count 8.8 hemoglobin 10.2 platelets 211 potassium 5.3 BUN 37 creatinine 2.09 August 31, 2023: White count 11.5 hemoglobin 12.8 platelets 251 sodium 136 potassium 4.8 BUN 33 creatinine 27 creatinine 1.59 AST 37 ALT 19 EKG tracing personally reviewed by me-sinus rhythm. Nonspecific T wave Changes Chest x-ray film personally reviewed by me-cardiomegaly. Some venous prominence. X-ray of the right knee and hip: Distal femoral diaphyseal oblique fracture with mild diastases. Advanced DJD of the right knee. Left hip prosthesis. Previous labs: Creatinine 1.8 on July 2021 Assessment plan: -Acute right distal femoral diaphyseal oblique fracture with mild diastasis. Secondary to fall. Right intramedullary nail by Dr. Samuels on August 31. Immobilizer in place. -CAD with a prior history of stent Patient not on aspirin per home medications. Xarelto resumed. -Paroxysmal atrial fibrillation currently in sinus rhythm Toprol-XL 50 mg twice daily. 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 -Hyperlipidemia Lipitor 40 mg nightly -Primary osteoarthritis Pain medication as needed -Chronic congestive heart failure from diastolic dysfunction EF 55 to 60% [July 2023]: Stable Diuretic held for now -COPD and ex-smoker DuoNeb 4 times daily to optimize pulmonary function perioperatively. -Chronic gait dysfunction, uses a walker at baseline -DNR. -Perioperative cardiovascular risk: Patient has advanced age and multiple medical problems. Decreased exercise tolerance does use a walker at baseline. Also has CAD with stent. Patient is a moderate risk from a cardiovascular standpoint with no absolute contraindications. For the course of the procedure patient CODE STATUS will be changed to full code Later this afternoon nurse called that patient's pulse ox will drop. Chest x- ray ordered. Pulmonary consult ordered. Other medications to continue. Thank you Dr. 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 aortogram, ERCP, 4 cardiac stents, left hip replacement Past Anesthesia/Blood Transfusion Reactions: Family History of Problems w/ Anesthesia Additional Past Anesthesia/Blood Transfusion Reaction / Comm: sister-long time to come out Date of Last Stent Placement:: 2010? Type of Cardiac Device: Permanent Pacemaker Device Placement Date:: 2023 replaced Past Psychological History: No Psychological Hx Reported Smoking Status: Former smoker Past Alcohol Use History: None Reported Additional Past Alcohol Use History / Comment(s): Patient quit smoking in 2019. She smoked one pack per day for 70 years Past Drug Use History: None Reported
--- NOTE | 2023-09-03 15:54 | XR ---
EXAMINATION TYPE: XR chest 2V DATE OF EXAM: 09/03/2023 COMPARISON: 09-21 INDICATION: Possible aspiration TECHNIQUE: Frontal and lateral views of the chest are obtained. FINDINGS: The heart size is normal. Pacemaker overlies the left chest The pulmonary vasculature is normal. The lungs are clear. IMPRESSION: 1. No acute pulmonary process.
--- NOTE | 2023-09-04 12:50 | P.CNPUL ---
History of Present Illness Consult date: 09/04/23 Requesting physician: Tommy Adrian Reason for consult: dyspnea, hypoxemia Chief complaint: Status post fall, right leg pain History of present illness: This is an 87-year-old female patient with a known history of hypothyroidism, hyperlipidemia, atrial fibrillation anticoagulated with Xarelto, congestive heart failure, coronary artery disease with stent placement, pacemaker. Presented here to the emergency room on August 31, 2023 after sustaining a fall and with significant right leg pain. Was found to have a comminuted displaced right distal femur fracture. She had undergone retrograde intra medullary nailing on 09/01/2023. Yesterday the patient had an episode of choking on her food and difficulty swallowing and concern with possible aspiration. We are consulted today for the same. Chest x-ray shows no acute pulmonary process. White count 8.8. Hemoglobin 10.2. Platelets 211. Sodium 133. Potassium 5.2. Bicarb 30. BUN 41. Creatinine 1.98. Glucose 141. She is currently on bronchodilators as needed. Anticoagulated with Xarelto. She is currently resting in bed. Awake and alert in no acute distress. She is having an occasional cough and shortness of breath. Review of Systems REVIEW OF SYSTEMS: CONSTITUTIONAL: Denies any recent significant weight loss or weight gain. EYES: Denies change in vision. EARS, NOSE, MOUTH, THROAT: Denies headaches, denies sore throat. CARDIOVASCULAR: Denies chest pain, palpitations or syncopal episodes. RESPIRATORY: Positive for shortness of breath, cough, congestion no hemoptysis. GASTROINTESTINAL: Positive for choking on food. Denies change in appetite, denies abdominal pain GENITOURINARY: Denies hematuria, denies infections. MUSKULOSKELETAL: Positive for right hip pain. INTEGUMENTARY: Denies rash, denies eczema. NEUROLOGICAL: Denies recent memory loss, no recent seizure activity. PSYCHIATRIC: Denies anxiety, denies depression. HEMATOLOGIC/LYMPHATIC: Denies anemia, denies enlarged lymph nodes. Past Medical History Past Medical History: Atrial Fibrillation, Atrial Flutter, Coronary Artery Disease (CAD), Cancer, Heart Failure, COPD, Hyperlipidemia, Hypertension, Liver Disease, Thyroid Disorder, Vascular Disorder Additional Past Medical History / Comment(s): hx Kidney Stones, Chronic N/T BILAT LEGS, WITH BLE EDEMA, states has had lymphedema with weeping valeria lower legs, degenerative arthritis, hx hepatitis C, hx cervical cancer, PVD Last Myocardial Infarction Date:: 2009 History of Any Multi-Drug Resistant Organisms: VRE Date of last positivie culture/infection: 01/14/21 MDRO Source:: VRE URINE Past Surgical History: Appendectomy, Cholecystectomy, Heart Catheterization With Stent, Hysterectomy, Joint Replacement, Pacemaker Additional Past Surgical History / Comment(s): valeria lower ext vascular repairs,2-6-17 abd. aortogram, ERCP, 4 cardiac stents, left hip replacement Past Anesthesia/Blood Transfusion Reactions: Family History of Problems w/ Anesthesia Additional Past Anesthesia/Blood Transfusion Reaction / Comment(s): sister-long time to come out Date of Last Stent Placement:: 2010? Type of Cardiac Device: Permanent Pacemaker Device Placement Date:: 2023 replaced Past Psychological History: No Psychological Hx Reported Smoking Status: Former smoker Past Alcohol Use History: None Reported Additional Past Alcohol Use History / Comment(s): Patient quit smoking in 2019. She smoked one pack per day for 70 years Past Drug Use History: None Reported - Past Family History Son(s) Family Medical History: Cancer Additional Family Medical History / Comment(s): Patient has 3 sons and one has been diagnosed with bladder cancer. Brother(s) Family Medical History: Cancer Additional Family Medical History / Comment(s): Patient has 2 brothers and one was diagnosed with esophageal cancer with metastatic disease. Daughter(s) Family Medical History: Cancer, Deep Vein Thrombosis (DVT) Additional Family Medical History / Comment(s): One daughter had Leukemia, another daughter had DVT's, had 4 joint replacements. Medications and Allergies Home Medications Medication Instructions Recorded Confirmed Type Levothyroxine Sodium [Synthroid] 50 mcg PO DAILY@0600 11/07/14 08/31/23 History Potassium Chloride ER [K-Dur 20] 20 meq PO BID@0900,1700 03/06/19 08/31/23 His tory Rivaroxaban [Xarelto] 15 mg PO DAILY@1700 07/23/21 08/31/23 History allopurinoL [Zyloprim] 100 mg PO DAILY 05/04/23 08/31/23 History Atorvastatin [Lipitor] 40 mg PO HS 05/10/23 08/31/23 History Amiodarone [Cordarone] 200 mg PO DAILY 07/16/23 08/31/23 History Ferrous Sulfate [Iron (65 MG 325 mg PO DAILY 07/16/23 08/31/23 History Elemental)] Pantoprazole [Protonix] 40 mg PO DAILY 07/16/23 08/31/23 History SILVER sulfADIAZINE CREAM 1 applic TOPICAL BID 07/31/23 08/31/23 History [Silvadene Cream] Torsemide [Demadex] 40 mg PO DAILY@0600 07/31/23 08/31/23 History Ammonium Lactate Lotion 1 applic TOPICAL BID@0900,1400 08/31/23 08/31/23 History [Lac-Hydrin 12% Lotion] Ipratropium-Albuterol Nebulize 3 ml INHALATION RT-Q6H PRN 08/31/23 08/31/23 History [Duoneb 0.5 mg-3 mg/3 ml Soln] Loratadine 10 mg PO Q8H PRN 08/31/23 08/31/23 History Menthol-Zinc Oxide Oint 1 applic TOPICAL BID@0900,1700 08/31/23 08/31/23 History [Calmoseptine Ointment] Metoprolol Succinate (ER) [Toprol 50 mg PO BID 08/31/23 08/31/23 History Xl] Torsemide [Soaanz] 20 mg PO DAILY@1400 08/31/23 08/31/23 History traMADol HCl [Ultram] 25 mg PO Q6H PRN 08/31/23 08/31/23 History Allergies Allergy/AdvReac Type Severity Reaction Status Date / Time doxycycline AdvReac Nausea & Verified 08/31/23 11:19 Vomiting & Diarrhea hydromorphone [From Dilaudid] AdvReac Nausea & Verified 08/31/23 11:19 Vomiting lorazepam [From Ativan] AdvReac Hallucinati Verified 08/31/23 11:19 ons Physical Exam Vitals: Vital Signs Temp Pulse Resp BP Pulse Ox 09/04/23 07:18 98.7 F 66 17 115/69 91 L 09/04/23 03:00 97.5 F L 67 20 102/54 91 L 09/03/23 19:18 60 09/03/23 19:11 97.6 F 60 16 102/63 96 09/03/23 16:28 97.3 F L 60 17 117/54 93 L 09/03/23 15:26 94 L 09/03/23 14:57 22 80 L 09/03/23 13:13 97.2 F L 60 19 100/63 83 L Intake and Output 09/03/23 09/04/23 09/04/23 22:59 06:59 14:59 Intake Total 180 480 Output Total 400 300 Balance -220 180 Intake: Oral 180 480 Output: Urine 400 300 Other: Voiding Method Indwelling Catheter Indwelling Catheter # Voids 2 GENERAL EXAM: Alert, 87-year-old female, on 3 L nasal cannula, comfortable in no apparent distress. HEAD: Normocephalic. EYES: Normal reaction of pupils, equal size. NOSE: Clear with pink turbinates. THROAT: No erythema or exudates. NECK: No masses, no JVD. CHEST: No chest wall deformity. LUNGS: Equal air entry with few scattered rhonchi. CVS: S1 and S2 normal with no audible murmur, regular rhythm. ABDOMEN: No hepatosplenomegaly, normal bowel sounds, no guarding or rigidity. SPINE: No scoliosis or deformity SKIN: No rashes CENTRAL NERVOUS SYSTEM: No focal deficits, tone is normal in all 4 extremities. EXTREMITIES: Right hip surgical incision dry and intact there is no peripheral edema. No clubbing, no cyanosis. Peripheral pulses are intact. Results - Laboratory Findings CBC and BMP: 09/02/23 07:34 09/03/23 07:23 PT/INR, D-dimer PT 15.7 sec (10.0-12.5) H 08/31/23 11:13 INR 1.5 (<1.2) H 08/31/23 11:13 Abnormal lab findings: Abnormal Labs 08/01/23 08/31/23 08/31/23 01:45 11:13 11:13 WBC 11.5 H RBC Hgb MCHC 30.4 L RDW 17.8 H Neutrophils # 9.5 H Lymphocytes # PT 15.7 H INR 1.5 H APTT 32.0 H Sodium Potassium Chloride Carbon Dioxide BUN Creatinine Glucose Calcium Total Bilirubin AST Alkaline Phosphatase Albumin Urine Appearance Cloudy H Urine Protein Trace H Urine Blood Small H Ur Leukocyte Esterase Large H Urine WBC >182 H Urine WBC Clumps Many H Urine Bacteria Many H Hyaline Casts 10 H Urine Mucus Rare H 08/31/23 09/02/23 09/02/23 11:13 07:34 07:34 WBC RBC 3.51 L Hgb 10.2 L MCHC 29.2 L RDW 18.0 H Neutrophils # Lymphocytes # 0.6 L PT INR APTT Sodium 136 L 135 L Potassium 5.3 H Chloride 96 L 97 L Carbon Dioxide 33 H 32 H BUN 27 H 37 H Creatinine 1.59 H 2.09 H Glucose 113 H 144 H Calcium 8.3 L Total Bilirubin 2.0 H AST 37 H Alkaline Phosphatase 134 H Albumin 3.0 L Urine Appearance Urine Protein Urine Blood Ur Leukocyte Esterase Urine WBC Urine WBC Clumps Urine Bacteria Hyaline Casts Urine Mucus 09/03/23 07:23 WBC RBC Hgb MCHC RDW Neutrophils # Lymphocytes # PT INR APTT Sodium 133 L Potassium 5.2 H Chloride Carbon Dioxide BUN 41 H Creatinine 1.98 H Glucose 141 H Calcium Total Bilirubin AST Alkaline Phosphatase Albumin Urine Appearance Urine Protein Urine Blood Ur Leukocyte Esterase Urine WBC Urine WBC Clumps Urine Bacteria Hyaline Casts Urine Mucus - Diagnostic Findings Chest x-ray: image reviewed Assessment and Plan Assessment: Acute hypoxemic respiratory failure secondary to possible aspiration secondary to choking on food. Chest x-ray shows no acute pulmonary process Recent fall and right hip fracture status post intramedullary nailing on 09/01/2023 Acute kidney injury Hyperkalemia secondary to above History of atrial fibrillation, anticoagulated with Xarelto. Pacemaker in place Coronary disease with previous stent placement Hypertension Hyperlipidemia Hypothyroidism History of congestive heart failure Plan: The patient was seen and evaluated Chest x-ray, labs and medications reviewed Add incentive spirometer Continue bronchodilators Check a procalcitonin Titrate down the FiO2 as tolerated Speech therapy consult for swallow evaluation We will continue to follow and make further recommendations based on her clinical status I have personally seen and examined the patient, performed the documentation and the assessment and plan as written. Number of minutes spent on the visit: 20.
[2023-09-04] MEDS: SODIUM CHLORIDE 0.45% 1,000 ML IV ONE (14:05)
--- NOTE | 2023-09-04 14:53 | P.PN ---
Progress Note - Text Progress Note Date: 09/04/23 - Chief Complaint Right hip pain - History of Present Illness This is a pleasant 87-year-old patient, follows with Dr. Powers. Chronic stable medical conditions include atrial fibrillation, CAD, CHF, COPD, hypertension hyperlipidemia, chronic lymphedema, DJD prior history of CAD with stent. At baseline does use a walker. No chest pain or short of breath. Patient took a fall with pain in the right leg. X-ray confirmed right distal femur fracture with slight displacement. Brace was placed in the ER. Pain in the operative site. No nausea vomiting. August 31: Laying in bed. Tired. Jacki mobilizer on the right leg. Being sched uled for surgery. No chest pain. Breathing stable. September 01: Yesterday patient underwent IM nailing of the right femur. Up in a recliner. Immobilizer in place. Pain present. Ate some breakfast and lunch. Looking at rehab inpatient. September 02: Having pain at the operative site. Up in a recliner. Eating about 25 to 50%. Later this afternoon nurse called that patient's oxygenation is decreased. Chest x-ray ordered. Pulmonary consulted. September 03: Patient was seen by pulmonary. Chest x-ray unremarkable. But sleepy. Not eating much also getting pain medications. Has complaining of pain in the right knee. Continue IV fluids 75 cc an hour. Because of decreased oral intake. Active Medications Hydrocodone Bitart/Acetaminophen (Hydrocodone/Apap 7.5-325mg 1 Each Tab) 1 each PO Q4HR PRN PRN Reason: Pain Last Admin: 09/04/23 12:56 Dose: 1 each Albuterol/Ipratropium (Ipratropium-Albuterol 3 Ml Neb) 3 ml INHALATION RT-QID [facility] Allopurinol (Allopurinol 100 Mg Tab) 100 mg PO DAILY [facility] Last Admin: 09/04/23 08:04 Dose: 100 mg Amiodarone HCl (Amiodarone 200 Mg Tab) 200 mg PO DAILY [facility] Last Admin: 09/04/23 08:04 Dose: 200 mg Atorvastatin Calcium (Atorvastatin 40 Mg Tab) 40 mg PO HS [facility] Last Admin: 09/03/23 20:25 Dose: Not Given Sodium Chloride (Saline 0.45%) 1,000 mls @ 50 mls/hr IV .Q20H ONE Stop: 09/05/23 09:56 Last Admin: 09/04/23 14:05 Dose: 50 mls/hr Lactic Acid (Ammonium Lactate 12% Lotion 225 Gm Btl) 1 applic TOPICAL BID@0900,1400 [facility]; Protocol Last Admin: 09/04/23 14:04 Dose: Not Given Levothyroxine Sodium (Levothyroxine 50 Mcg Tab) 50 mcg PO DAILY@0600 [facility] Last Admin: 09/04/23 07:00 Dose: 50 mcg Lidocaine HCl (Lidocaine 1% (10mg/Ml) For Iv Start) 0.1 ml INTRADERMA PER PROTOCOL PRN PRN Reason: IV Start Magnesium Hydroxide (Magnesium Hydroxide 2,400 Mg/30 Ml Cup) 2,400 mg PO DAILY [facility] Last Admin: 09/04/23 08:04 Dose: 2,400 mg Metoprolol Succinate (Metoprolol Succinate (Er) 25 Mg Tab.Er.24h) 25 mg PO BID [facility] Last Admin: 09/04/23 08:04 Dose: 25 mg Naloxone HCl (Naloxone 0.4 Mg/Ml 1 Ml Vial) 0.2 mg IV Q2M PRN PRN Reason: Opioid Reversal Last Admin: 08/31/23 16:45 Dose: 0.2 mg Ondansetron HCl (Ondansetron 4 Mg/2 Ml Vial) 4 mg IVP Q8HR PRN PRN Reason: Nausea And Vomiting Pantoprazole Sodium (Pantoprazole 40 Mg Tablet) 40 mg PO 0730 [facility] Last Admin: 09/04/23 08:04 Dose: 40 mg Rivaroxaban (Rivaroxaban 15 Mg Tab) 15 mg PO DAILY@1700 [facility]; Protocol Last Admin: 09/03/23 17:37 Dose: 15 mg Senna/Docusate Sodium (Sennosides-Docusate Sodium 1 Each Tab) 2 each PO DAILY [facility] Last Admin: 09/04/23 08:04 Dose: 2 each Silver Sulfadiazine (Silver Sulfadiazine 1% Cream 25 Gm Tube) 1 applic TOPICAL BID [facility]; Protocol Last Admin: 09/04/23 12:56 Dose: 1 applic Tramadol HCl (Tramadol 50 Mg Tab) 50 mg PO QID PRN PRN Reason: Breakthrough Pain Last Admin: 09/04/23 09:52 Dose: 50 mg Social history: Lives at [facility]. Uses a walker. Patient smoked a pack a day for about 70 years. Stopped in 2019. No alcohol intake. Physical examination: VITAL SIGNS: 98.1, 63, 17, 129 x 78, 92% on 3 L GENERAL: In bed tired sleepy EYES: Pupils equal. Conjunctiva tony l. HEENT: External appearance of nose and ears normal, oral cavity grossly normal. NECK: JVD not raised; masses not palpable. HEART: First and second heart sounds are normal; no edema. LUNGS: Respiratory rate normal; decreased breath sound. ABDOMEN: Soft, nontender, liver spleen not palpable, no masses palpable. PSYCH: Able to answer simple questions. MUSCULOSKELETAL:No Clubbing/cyanosis;muscles-grossly intact. OA in several joints. Right knee in immobilizer brace. Edema in both lower extremity. Some skin discoloration distally INVESTIGATIONS, reviewed in the clinical context: September 02: Sodium 133 potassium 5.2 creatinine 1.98 September 01: White count 8.8 hemoglobin 10.2 platelets 211 potassium 5.3 BUN 37 creatinine 2.09 August 31, 2023: White count 11.5 hemoglobin 12.8 platelets 251 sodium 136 potassium 4.8 BUN 33 creatinine 27 creatinine 1.59 AST 37 ALT 19 EKG tracing personally reviewed by me-sinus rhythm. Nonspecific T wave Changes Chest x-ray film personally reviewed by me-cardiomegaly. Some venous prominence. X-ray of the right knee and hip: Distal femoral diaphyseal oblique fracture with mild diastases. Advanced DJD of the right knee. Left hip prosthesis. Previous labs: Creatinine 1.8 on July 2021 Assessment plan: -Acute right distal femoral diaphyseal oblique fracture with mild diastasis. Secondary to fall. Right intramedullary nail by Dr. Samuels on August 31. Immobilizer in place. -CAD with a prior history of stent Patient not on aspirin per home medications. Xarelto resumed. -Paroxysmal atrial fibrillation currently in sinus rhythm Toprol-XL 50 mg twice daily. 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 -Hyperlipidemia Lipitor 40 mg nightly -Primary osteoarthritis Pain medication as needed -Chronic congestive heart failure from diastolic dysfunction EF 55 to 60% [July 2023]: Stable Diuretic held for now -COPD and ex-smoker DuoNeb 4 times daily to optimize pulmonary function perioperatively. -Chronic gait dysfunction, uses a walker at baseline -DNR. -Perioperative cardiovascular risk: Patient has advanced age and multiple medical problems. Decreased exercise tolerance does use a walker at baseline. Also has CAD with stent. Patient is a moderate risk from a cardiovascular standpoint with no absolute contraindications. For the course of the procedure patient CODE STATUS will be changed to full code Seen by Dr. aCraballo from pulmonary. No further intervention. Will see if orthopedics can cut back on the pain medications. Start IV fluids 75 cc an hour. Thank you Dr. 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 aortogram, ERCP, 4 cardiac stents, left hip replacement Past Anesthesia/Blood Transfusion Reactions: Family History of Problems w/ Anesthesia Additional Past Anesthesia/Blood Transfusion Reaction / Comm: sister-long time to come out Date of Last Stent Placement:: 2010? Type of Cardiac Device: Permanent Pacemaker Device Placement Date:: 2023 replaced Past Psychological History: No Psychological Hx Reported Smoking Status: Former smoker Past Alcohol Use History: None Reported Additional Past Alcohol Use History / Comment(s): Patient quit smoking in 2019. She smoked one pack per day for 70 years Past Drug Use History: None Reported
[2023-09-04] MEDS: IPRATROPIUM-ALBUTEROL 3 ML NEB INHALATION SCH (15:11)
[2023-09-04] MEDS: SODIUM CHLORIDE 0.45% 1,000 ML IV SCH (17:44)
--- NOTE | 2023-09-04 19:28 | P.PN ---
Subjective Progress Note Date: 09/04/23 Principal diagnosis: Right distal femur fracture, status post retrograde intramedullary nail Patient was evaluated at bedside today, is resting in her hospital bed. Patient appears rather comfortable. She states that the pain seems to be controlled with current medications. The knee immobilizer and postop dressing are in good position. She denies any headaches, lightheadedness, chest pain or shortness of breath Objective - Vital Signs Vital signs: Vital Signs Temp 98.1 F 09/04/23 14:00 Pulse 64 09/04/23 15:22 Resp 17 09/04/23 14:07 BP 129/78 09/04/23 14:00 Pulse Ox 92 L 09/04/23 14:00 FiO2 Intake & Output 09/04/23 09/04/23 09/05/23 06:59 18:59 06:59 Intake Total 480 Output Total 300 600 Balance 180 -600 Intake: Oral 480 Output: Urine 300 600 Other: Voiding Method Indwelling Catheter Indwelling Catheter - Exam Right lower extremity: Bandages are all in good position condition, no obvious spotting noted Skin is warm to touch throughout the extremity, she is able to wiggle the toes with no difficulty. Calf is soft, no tenderness with palpation. - Labs CBC & Chem 7: 09/02/23 07:34 09/03/23 07:23 Assessment and Plan Assessment: Postoperative day #3 status post retrograde intramedullary nail for right distal femur fracture Severe right knee osteoarthritis Severe right hip osteoarthritis Previous left total hip arthroplasty Multiple medical comorbidities Plan: Pain control, both IV and oral medications as needed Monitor surgical dressing Regular diet Courage incentive spirometer Toe-touch weightbearing right lower extremity, recommend utilizing knee immobilizer when transferring, okay to remove while stationary DVT prophylaxis, okay to restart normal anticoagulant Medical recommendations with regards to urinary catheter management Medical and cardiac recommendations appreciated PT/OT evaluation Discharge planning: orthopedically patient remains stable for discharge, awaiting placement Time with Patient: Less than 30
[2023-09-05 06:44] LABS: African American GFR (CKD) 40 (>60 ml/min/1.73 sqM); Anion Gap 6 mmol/L; Blood Urea Nitrogen 39 mg/dL (7-17); Calcium 8.6 mg/dL (8.4-10.2); Carbon Dioxide 29 mmol/L (22-30); Chloride 101 mmol/L (98-107); Glucose 99 mg/dL (74-99); Non-African American GFR(CKD) 35 (>60 ml/min/1.73 sqM); Potassium 5.5 mmol/L (3.5-5.1); Sodium 136 mmol/L (137-145)
--- NOTE | 2023-09-05 11:37 | P.PN ---
Subjective Progress Note Date: 09/05/23 This is an 87-year-old female patient with a known history of hypothyroidism, hyperlipidemia, atrial fibrillation anticoagulated with Xarelto, congestive heart failure, coronary artery disease with stent placement, pacemaker. Presented here to the emergency room on August 31, 2023 after sustaining a fall a nd with significant right leg pain. Was found to have a comminuted displaced right distal femur fracture. She had undergone retrograde intra medullary nailing on 09/01/2023. Yesterday the patient had an episode of choking on her food and difficulty swallowing and concern with possible aspiration. We are consulted today for the same. Chest x-ray shows no acute pulmonary process. White count 8.8. Hemoglobin 10.2. Platelets 211. Sodium 133. Potassium 5.2. Bicarb 30. BUN 41. Creatinine 1.98. Glucose 141. She is currently on bronchodilators as needed. Anticoagulated with Xarelto. She is currently resting in bed. Awake and alert in no acute distress. She is having an occasional cough and shortness of breath. The patient is seen today September 05, 2023 in follow-up on the regular medical floor. She is currently resting comfortably in bed. Awake and alert in no acute distress. Maintaining good O2 saturations in the 90s on 3 L/min per nasal cannula. She has 0.5% normal saline at 75 MLS per hour. Sodium 136. Potassium 5.5. Bicarb 29. BUN 39. Creatinine 1.38. Procalcitonin 0.18. She remains on bronchodilators. Anticoagulated with Xarelto. Currently on a regular diet. Objective - Vital Signs Vital signs: Vital Signs Temp 98.4 F 09/05/23 07:35 Pulse 72 09/05/23 09:26 Resp 19 09/05/23 07:35 BP 123/77 09/05/23 07:35 Pulse Ox 96 09/05/23 09:20 FiO2 Intake & Output 09/04/23 09/05/23 09/05/23 18:59 06:59 18:59 Output Total 600 1300 Balance -600 -1300 Output: Urine 600 1300 Other: Voiding Method Indwelling Catheter - Exam GENERAL EXAM: Alert, pleasant 87-year-old female, resting in bed, on 3 L nasal cannula, comfortable in no apparent distress. HEAD: Normocephalic. EYES: Normal reaction of pupils, equal size. NOSE: Clear with pink turbinates. THROAT: No erythema or exudates. NECK: No masses, no JVD. CHEST: No chest wall deformity. LUNGS: Equal air entry with few scattered rhonchi. CVS: S1 and S2 normal with no audible murmur, regular rhythm. ABDOMEN: No hepatosplenomegaly, normal bowel sounds, no guarding or rigidity. SPINE: No scoliosis or deformity SKIN: No rashes CENTRAL NERVOUS SYSTEM: No focal deficits, tone is normal in all 4 extremities. EXTREMITIES: Right hip surgical dressing dry and intact, there is no peripheral edema. No clubbing, no cyanosis. Peripheral pulses are intact. - Labs CBC & Chem 7: 09/02/23 07:34 09/05/23 05:35 Labs: Abnormal Lab Results - Last 24 Hours (Table) 09/04/23 09/05/23 Range/Units 10:51 05:35 Sodium 136 L (137-145) mmol/L Potassium 5.5 H (3.5-5.1) mmol/L BUN 39 H (7-17) mg/dL Creatinine 1.38 H (0.52-1.04) mg/dL Procalcitonin 0.18 H (0.02-0.09) ng/mL Assessment and Plan Assessment: Acute hypoxemic respiratory failure secondary to possible aspiration secondary to choking on food. Chest x-ray shows no acute pulmonary process. Procalcitonin 0.18 Recent fall and right hip fracture status post intramedullary nailing on 09/01/2023 Acute kidney injury Hyperkalemia secondary to above History of atrial fibrillation, anticoagulated with Xarelto. Pacemaker in place Coronary disease with previous stent placement Hypertension Hyperlipidemia Hypothyroidism History of congestive heart failure Plan: The patient was seen and evaluated Labs and medications reviewed Continue incentive spirometer Continue bronchodilators Titrate down the FiO2 as tolerated Speech therapy for swallow evaluation We will continue to follow I have personally seen and examined the patient, performed the documentation and the assessment and plan as written. Number of minutes spent on the visit: 10.
--- NOTE | 2023-09-05 12:09 | P.PN ---
Progress Note - Text Progress Note Date: 09/05/23 - Chief Complaint Right hip pain - History of Present Illness This is a pleasant 87-year-old patient, follows with Dr. Powers. Chronic stable medical conditions include atrial fibrillation, CAD, CHF, COPD, hypertension hyperlipidemia, chronic lymphedema, DJD prior history of CAD with stent. At baseline does use a walker. No chest pain or short of breath. Patient took a fall with pain in the right leg. X-ray confirmed right distal femur fracture with slight displacement. Brace was placed in the ER. Pain in the operative site. No nausea vomiting. August 31: Laying in bed. Tired. Jacki mobilizer on the right leg. Being sched uled for surgery. No chest pain. Breathing stable. September 01: Yesterday patient underwent IM nailing of the right femur. Up in a recliner. Immobilizer in place. Pain present. Ate some breakfast and lunch. Looking at rehab inpatient. September 02: Having pain at the operative site. Up in a recliner. Eating about 25 to 50%. Later this afternoon nurse called that patient's oxygenation is decreased. Chest x-ray ordered. Pulmonary consulted. September 03: Patient was seen by pulmonary. Chest x-ray unremarkable. But sleepy. Not eating much also getting pain medications. Has complaining of pain in the right knee. Continue IV fluids 75 cc an hour. Because of decreased oral intake. September 04: Patient is somewhat delirious. Decreased oral intake. Will DC Centrahoma. Use Ultram as needed. Also add Seroquel at night. 1 dose of Kayexalate for hyperkalemia. Active Medications Albuterol/Ipratropium (Ipratropium-Albuterol 3 Ml Neb) 3 ml INHALATION RT-QID [facility] Last Admin: 09/05/23 09:17 Dose: 3 ml Allopurinol (Allopurinol 100 Mg Tab) 100 mg PO DAILY [facility] Last Admin: 09/05/23 08:10 Dose: 100 mg Amiodarone HCl (Amiodarone 200 Mg Tab) 200 mg PO DAILY [facility] Last Admin: 09/05/23 08:11 Dose: 200 mg Atorvastatin Calcium (Atorvastatin 40 Mg Tab) 40 mg PO HS [facility] Last Admin: 09/04/23 22:22 Dose: 40 mg Sodium Chloride (Saline 0.45%) 1,000 mls @ 75 mls/hr IV .[id number] [facility] Last Admin: 09/05/23 08:11 Dose: 75 mls/hr Lactic Acid (Ammonium Lactate 12% Lotion 225 Gm Btl) 1 applic TOPICAL BID@0900,1400 [facility]; Protocol Last Admin: 09/05/23 08:11 Dose: 1 applic Levothyroxine Sodium (Levothyroxine 50 Mcg Tab) 50 mcg PO DAILY@0600 [facility] Last Admin: 09/05/23 06:00 Dose: 50 mcg Lidocaine HCl (Lidocaine 1% (10mg/Ml) For Iv Start) 0.1 ml INTRADERMA PER [place] OTOCOL PRN PRN Reason: IV Start Magnesium Hydroxide (Magnesium Hydroxide 2,400 Mg/30 Ml Cup) 2,400 mg PO DAILY [facility] Last Admin: 09/05/23 08:11 Dose: Not Given Metoprolol Succinate (Metoprolol Succinate (Er) 25 Mg Tab.Er.24h) 25 mg PO BID [facility] Last Admin: 09/05/23 08:11 Dose: 25 mg Naloxone HCl (Naloxone 0.4 Mg/Ml 1 Ml Vial) 0.2 mg IV Q2M PRN PRN Reason: Opioid Reversal Last Admin: 08/31/23 16:45 Dose: 0.2 mg Ondansetron HCl (Ondansetron 4 Mg/2 Ml Vial) 4 mg IVP Q8HR PRN PRN Reason: Nausea And Vomiting Pantoprazole Sodium (Pantoprazole 40 Mg Tablet) 40 mg PO 0730 [facility] Last Admin: 09/05/23 08:10 Dose: 40 mg Quetiapine Fumarate (Quetiapine 25 Mg Tab) 12.5 mg PO HS [facility] Rivaroxaban (Rivaroxaban 15 Mg Tab) 15 mg PO DAILY@1700 [facility]; Protocol Last Admin: 09/04/23 17:53 Dose: 15 mg Senna/Docusate Sodium (Sennosides-Docusate Sodium 1 Each Tab) 2 each PO DAILY [facility] Last Admin: 09/05/23 08:10 Dose: 2 each Silver Sulfadiazine (Silver Sulfadiazine 1% Cream 25 Gm Tube) 1 applic TOPICAL BID [facility]; Protocol Last Admin: 09/05/23 08:12 Dose: 1 applic Tramadol HCl (Tramadol 50 Mg Tab) 50 mg PO QID PRN PRN Reason: Breakthrough Pain Last Admin: 09/05/23 06:01 Dose: 50 mg Social history: Lives at [facility]. Uses a walker. Patient smoked a pack a day for about 70 years. Stopped in 2018. No alcohol intake. Physical examination: VITAL SIGNS: 98.4, 60, 19, 123 x 77, 94% on 3 L GENERAL: Sleeping a bit tired EYES: Pupils equal. Conjunctiva tony l. HEENT: External appearance of nose and ears normal, oral cavity grossly normal. NECK: JVD not raised; masses not palpable. HEART: First and second heart sounds are normal; no edema. LUNGS: Respiratory rate normal; decreased breath sound. ABDOMEN: Soft, nontender, liver spleen not palpable, no masses palpable. PSYCH: Answer occasional question MUSCULOSKELETAL:No Clubbing/cyanosis;muscles-grossly intact. OA in several joints. Right knee in immobilizer brace. Edema in both lower extremity. Some skin discoloration distally INVESTIGATIONS, reviewed in the clinical context: September 04: Sodium 136 potassium 5.5 BUN 39 creatinine 1.38 September 02: Sodium 133 potassium 5.2 creatinine 1.98 September 01: White count 8.8 hemoglobin 10.2 platelets 211 potassium 5.3 BUN 37 creatinine 2.09 August 31, 2023: White count 11.5 hemoglobin 12.8 platelets 251 sodium 136 potassium 4.8 BUN 33 creatinine 27 creatinine 1.59 AST 37 ALT 19 EKG tracing personally reviewed by me-sinus rhythm. Nonspecific T wave Changes Chest x-ray film personally reviewed by me-cardiomegaly. Some venous prominence. X-ray of the right knee and hip: Distal femoral diaphyseal oblique fracture with mild diastases. Advanced DJD of the right knee. Left hip prosthesis. Previous labs: Creatinine 1.8 on July 2021 Assessment plan: -Acute right distal femoral diaphyseal oblique fracture with mild diastasis. Secondary to fall. Right intramedullary nail by Dr. Samuels on August 31. Immobilizer in place. -Acute delirium, multifactorial. Will stop Centrahoma. -CAD with a prior history of stent Patient not on aspirin per home medications. Xarelto -Paroxysmal atrial fibrillation currently in sinus rhythm Toprol-XL 50 mg twice daily. 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 -Hyperlipidemia Lipitor 40 mg nightly -Primary osteoarthritis Pain medication as needed -Chronic congestive heart failure from diastolic dysfunction EF 55 to 60% [July 2023]: Stable Diuretic held for now -COPD and ex-smoker DuoNeb 4 times daily to optimize pulmonary function perioperatively. -Chronic gait dysfunction, uses a walker at baseline -DNR. -Perioperative cardiovascular risk: Patient has advanced age and multiple medical problems. Decreased exercise tolerance does use a walker at baseline. Also has CAD with stent. Patient is a moderate risk from a cardiovascular standpoint with no absolute contraindications. For the course of the procedure patient CODE STATUS will be changed to full code Continue IV fluids. Stop Centrahoma. Ultram as needed for pain. Start Seroquel at night. Thank you Dr. 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 aortogram, ERCP, 4 cardiac stents, left hip replacement Past Anesthesia/Blood Transfusion Reactions: Family History of Problems w/ Anesthesia Additional Past Anesthesia/Blood Transfusion Reaction / Comm: sister-long time to come out Date of Last Stent Placement:: 2010? Type of Cardiac Device: Permanent Pacemaker Device Placement Date:: 2023 replaced Past Psychological History: No Psychological Hx Reported Smoking Status: Former smoker Past Alcohol Use History: None Reported Additional Past Alcohol Use History / Comment(s): Patient quit smoking in 2019. She smoked one pack per day for 70 years Past Drug Use History: None Reported
[2023-09-05] MEDS: SODIUM POLYSTYRENE SULFONATE 15 GM/60 ML BOTTLE PO STA (12:45)
[2023-09-05] MEDS: QUEtiapine 25 MG TAB PO SCH (20:02)
[2023-09-05] MEDS ORDERED: QUEtiapine 25 MG TAB PO SCH (21:00)
[2023-09-06 07:06] LABS: African American GFR (CKD) 51 (>60 ml/min/1.73 sqM); Anion Gap 3 mmol/L; Blood Urea Nitrogen 36 mg/dL (7-17); Calcium 8.5 mg/dL (8.4-10.2); Carbon Dioxide 30 mmol/L (22-30); Chloride 102 mmol/L (98-107); Glucose 86 mg/dL (74-99); Non-African American GFR(CKD) 44 (>60 ml/min/1.73 sqM); Potassium 4.7 mmol/L (3.5-5.1); Sodium 135 mmol/L (137-145)
[2023-09-06 09:35] LABS: Glucose,Whole Blood 82 mg/dL (70-110)
--- NOTE | 2023-09-06 10:06 | CT ---
EXAMINATION TYPE: CT brain wo con DATE OF EXAM: 09/06/2023 COMPARISON: 05/10/2023 INDICATION: Decreased level of consciousness DLP: 1153.4 mGycm, Automated exposure control for dose reduction was used. CONTRAST: None CT of the brain is performed utilizing 3 mm thick sections through the posterior fossa and 3 mm thick sections through the remaining calvarium. Study is performed within 24 hours of arrival to the hosp [facility]. No abnormal hyperdensity is present to suggest an acute intracranial hemorrhage. No mass lesion is evident. No acute infarcts are evident. Mild periventricular white matter hypodensity is present, likely on th e basis of chronic white matter ischemic changes. Finding appears stable. Ventricles and sulci are prominent for the patient age. Paranasal sinuses and mastoid air cells within the [id number] are clear. IMPRESSION: 1. Atrophy with chronic appearing periventricular white matter ischemic changes. 2. No acute intracranial process. Follow-up MRI can be performed as clinically indicated.
[2023-09-06] MEDS: ACETAMINOPHEN IV (For NPO) 1,000 MG in EMPTY BAG 1 BAG IVPB SCH (11:33)
[2023-09-06 11:49] LABS: Anisocytosis Slight; Basophils % (A) 0 %; Eosinophils # (A) 0.2 k/uL (0-0.7); Eosinophils % (A) 2 %; HCT 31.3 % (34.0-46.0); HGB 9.3 gm/dL (11.4-16.0); Hypochromasia Marked; Lymphocytes # (A) 1.1 k/uL (1.0-4.8); Lymphocytes % (A) 13 %; MCH 30.5 pg (25.0-35.0); MCHC 29.9 g/dL (31.0-37.0); MCV 102.1 fL (80.0-100.0); Macrocytosis Moderate; Mean Platelet Volume 10.4; Monocytes # (A) 0.7 k/uL (0-1.0); Monocytes % (A) 8 %; Neutrophils % (A) 74 %; Platelet Count 188 k/uL (150-450); RBC 3.07 m/uL (3.80-5.40); RDW 19.2 % (11.5-15.5); WBC 8.1 k/uL (3.8-10.6)
[2023-09-06 12:40] LABS: ALT 21 U/L (4-34); AST 42 U/L (14-36); Albumin 2.4 g/dL (3.5-5.0); Albumin/Globulin Ratio 0.8; Alkaline Phosphatase 99 U/L (38-126); Globulin 3.1 g/dL; Total Protein 5.5 g/dL (6.3-8.2)
[2023-09-06] MEDS: SODIUM CHLORIDE 0.9% 500 ML 500 ML IV ONE (12:57)
--- NOTE | 2023-09-06 13:12 | XR ---
EXAMINATION TYPE: XR chest 1V portable DATE OF EXAM: 09/06/2023 COMPARISON: 09/03/2023 INDICATION: Low oxygenation TECHNIQUE: Single frontal view of the chest is obtained. FINDINGS: The heart size is mildly prominent. Pacemaker overlies the left chest The pulmonary vasculature is prominent. Diffuse increased central lung markings are present bilaterally. Correlate for volume overload. IMPRESSION: 1. Clinical correlation recommended for congestive heart failure or early volume overload.
[2023-09-06] MEDS: SODIUM CHLORIDE 0.9% 1,000 ML IV ONE (13:21)
[2023-09-06 14:28] VITALS: BMI 23.0
[2023-09-06] MEDS: PIPERACILLIN-TAZOBACTAM 3.375 GM in SODIUM CHLORIDE 0.9% 100 ML IVPB SCH (16:53)
--- NOTE | 2023-09-06 18:54 | P.PN ---
Subjective Progress Note Date: 09/06/23 This is an 87-year-old female patient with a known history of hypothyroidism, hyperlipidemia, atrial fibrillation anticoagulated with Xarelto, congestive heart failure, coronary artery disease with stent placement, pacemaker. Presented here to the emergency room on August 31, 2023 after sustaining a fall and with significant right leg pain. Was found to have a comminuted displaced right distal femur fracture. She had undergone retrograde intra medullary nailing on 09/01/2023. Yesterday the patient had an episode of choking on her food and difficulty swallowing and concern with possible aspiration. We are consulted today for the same. Chest x-ray shows no acute pulmonary process. White count 8.8. Hemoglobin 10.2. Platelets 211. Sodium 133. Potassium 5.2. Bicarb 30. BUN 41. Creatinine 1.98. Glucose 141. She is currently on bronchodilators as needed. Anticoagulated with Xarelto. She is currently resting in bed. Awake and alert in no acute distress. She is having an occasional cough and shortness of breath. The patient is seen today September 05, 2023 in follow-up on the regular medical floor. She is currently resting comfortably in bed. Awake and alert in no acute distress. Maintaining good O2 saturations in the 90s on 3 L/min per nasal cannula. She has 0.5% normal saline at 75 MLS per hour. Sodium 136. Potassium 5.5. Bicarb 29. BUN 39. Creatinine 1.38. Procalcitonin 0.18. She remains on bronchodilators. Anticoagulated with Xarelto. Currently on a regular diet. On today's evaluation of 09/06/2023, I am seeing the patient for a follow-up. The patient is having episodes of hypotension. The patient also is having episodes of diminished level of consciousness. Based on that, a CAT scan of the brain was done today that showed atrophy and chronic periventricular white matter changes. No acute process was identified. Chest x-ray showed some signs of ear ly volume overload. No consolidation or airspace disease. The patient's white cell count of 8.1 with a hemoglobin 9.3, BUN is at 36 with a creatinine of 1.1 and sodium levels at 135. Repeat procalcitonin level was at 0.17. The patient was given a bolus of 1 L of normal saline and she responded to that and the blood pressure is currently up to 94/50. No significant tachycardia. The patient is afebrile and she is on 3 L of oxygen by nasal cannula with a pulse ox of 98%. She remains lethargic and encephalopathic. She remains on anticoagulation with Xarelto regarding her chronic A-fib. The patient will be also started on broad-spectrum antibiotics pending further cultures. She is a DNR/DNI CODE STATUS. Objective - Vital Signs Vital signs: Vital Signs Temp 98.6 F 09/06/23 07:10 Pulse 64 09/06/23 12:32 Resp 16 09/06/23 07:10 BP 97/58 09/06/23 12:32 Pulse Ox 98 09/06/23 10:11 FiO2 Intake & Output 09/05/23 09/06/23 09/06/23 18:59 06:59 18:59 Intake Total 120 Output Total 500 Balance -500 120 Intake: Oral 120 Output: Urine 500 Other: Voiding Method Indwelling Catheter Indwelling Catheter Indwelling Catheter - Exam GENERAL EXAM: Alert, pleasant 87-year-old female, resting in bed, on 3 L nasal cannula, comfortable in no apparent distress. The patient is encephalopathic, altered and confused. HEAD: Normocephalic. EYES: Normal reaction of pupils, equal size. NOSE: Clear with pink turbinates. THROAT: No erythema or exudates. NECK: No masses, no JVD. CHEST: No chest wall deformity. LUNGS: Equal air entry with few scattered rhonchi. CVS: S1 and S2 normal with no audible murmur, regular rhythm. ABDOMEN: No hepatosplenomegaly, normal bowel sounds, no guarding or rigidity. SPINE: No scoliosis or deformity SKIN: No rashes CENTRAL NERVOUS SYSTEM: No focal deficits, tone is normal in all 4 extremities. The patient is confused and encephalopathic. Pupils are equal reactive to light at around 4 mm in size. She is moaning. Unable to hold a conversation at this point in time. Family is at the bedside. EXTREMITIES: Right hip surgical dressing dry and intact, there is no peripheral edema. No clubbing, no cyanosis. Peripheral pulses are intact. - Labs CBC & Chem 7: 09/06/23 06:20 09/06/23 06:20 Labs: Abnormal Lab Results - Last 24 Hours (Table) 04/08/24 04/08/24 Range/Units 06:20 06:20 RBC 3.07 L (3.80-5.40) m/uL Hgb 9.3 L (11.4-16.0) gm/dL Hct 31.3 L (34.0-46.0) % MCV 102.1 H (80.0-100.0) fL MCHC 29.9 L (31.0-37.0) g/dL RDW 19.2 H (11.5-15.5) % Sodium 135 L (137-145) mmol/L BUN 36 H (7-17) mg/dL Creatinine 1.13 H (0.52-1.04) mg/dL AST 42 H (14-36) U/L Total Protein 5.5 L (6.3-8.2) g/dL Albumin 2.4 L (3.5-5.0) g/dL Assessment and Plan Plan: Acute hypoxemic respiratory failure secondary to possible aspiration secondary to choking on food. Chest x-ray shows no acute pulmonary process. Repeat chest x-ray from today shows some early volume overload and the patient is currently on 3 L of oxygen by nasal cannula. Encephalopathy, rule out underlying sepsis. Rule out metabolic encephalopathy. CAT scan of the brain was negative. Acute CVA cannot be completely ruled out as the patient has chronic atrial fibrillation nevertheless the patient has been maintained on anticoagulation with Xarelto. No focal neurological deficit at this point in time. Rule out delirium. Recent fall and right hip fracture status post intramedullary nailing on 09/01/2023 Acute kidney injury, creatinine stable for now and is improved to 1.1 Acute hypotension, rule out underlying sepsis. The patient will be given IV fluids and started on broad-spectrum antibiotics. Procalcitonin level is mildly elevated. Hyperkalemia secondary to above, recovered History of atrial fibrillation, anticoagulated with Xarelto. Pacemaker in place Coronary disease with previous stent placement Hypertension Hyperlipidemia Hypothyroidism History of congestive heart failure Plan: Continue monitoring the mental status. Consult neurology. The patient bolus of 1 L Send blood cultures Chest x-ray was noted Send urine cultures Start the patient empirically on IV Zosyn Procalcitonin level is mildly elevated CAT scan of the brain is not showing any acute process Continue anticoagulation with Xarelto Continue incentive spirometer Continue bronchodilators Titrate down the FiO2 as tolerated DNR/DNI CODE STATUS with a poor baseline performance and functional status. We will continue to follow
--- NOTE | 2023-09-06 19:28 | P.PN ---
Progress Note - Text Progress Note Date: 09/06/23 - Chief Complaint Right hip pain - History of Present Illness This is a pleasant 87-year-old patient, follows with Dr. Powers. Chronic stable medical conditions include atrial fibrillation, CAD, CHF, COPD, hypertension hyperlipidemia, chronic lymphedema, DJD prior history of CAD with stent. At baseline does use a walker. No chest pain or short of breath. Patient took a fall with pain in the right leg. X-ray confirmed right distal femur fracture with slight displacement. Brace was placed in the ER. Pain in the operative site. No nausea vomiting. August 31: Laying in bed. Tired. Jacki mobilizer on the right leg. Being sched uled for surgery. No chest pain. Breathing stable. September 01: Yesterday patient underwent IM nailing of the right femur. Up in a recliner. Immobilizer in place. Pain present. Ate some breakfast and lunch. Looking at rehab inpatient. September 02: Having pain at the operative site. Up in a recliner. Eating about 25 to 50%. Later this afternoon nurse called that patient's oxygenation is decreased. Chest x-ray ordered. Pulmonary consulted. September 03: Patient was seen by pulmonary. Chest x-ray unremarkable. But sleepy. Not eating much also getting pain medications. Has complaining of pain in the right knee. Continue IV fluids 75 cc an hour. Because of decreased oral intake. September 04: Patient is somewhat delirious. Decreased oral intake. Will DC [place]. Use Ultram as needed. Also add Seroquel at night. 1 dose of Kayexalate for hyperkalemia. September 05: Patient rather sleepy this morning. Blood pressure was low. Given fluid bolus. Patient's daughter who is the POA was at the bedside. Family members present. I did explain that patient prognosis guarded. Due to multiple problems prognosis and options are limited. X-ray did show some pleural fluid. But because of low blood pressure again options limited.. Urgent CT scan this morning showed chronic changes. Hospice consulted for informational visit. Zosyn was added for possible aspiration pneumonia Active Medications Albuterol/Ipratropium (Ipratropium-Albuterol 3 Ml Neb) 3 ml INHALATION RT-QID [facility] Last Admin: 09/06/23 16:34 Dose: 3 ml Allopurinol (Allopurinol 100 Mg Tab) 100 mg PO DAILY [facility] Last Admin: 09/06/23 10:53 Dose: Not Given Amiodarone HCl (Amiodarone 200 Mg Tab) 200 mg PO DAILY [facility] Last Admin: 09/06/23 10:53 Dose: Not Given Atorvastatin Calcium (Atorvastatin 40 Mg Tab) 40 mg PO HS [facility] Last Admin: 09/05/23 20:02 Dose: 40 mg Sodium Chloride (Saline 0.45%) 1,000 mls @ 75 mls/hr IV .[id number] [facility] Last Admin: 09/06/23 15:41 Dose: 75 mls/hr Acetaminophen 1,000 mg/ IV (Solution) 100 mls @ 400 mls/hr IVPB Q6HR [facility] Stop: 09/07/23 06:01 Last Admin: 09/06/23 18:02 Dose: 400 mls/hr Piperacillin Sod/Tazobactam (Sod 3.375 gm/ Sodium Chloride) 100 mls @ 25 mls/hr IVPB Q8HR [facility]; Protocol Last Admin: 09/06/23 16:53 Dose: 25 mls/hr Lactic Acid (Ammonium Lactate 12% Lotion 225 Gm Btl) 1 applic TOPICAL BID@0900,1400 [facility]; Protocol Last Admin: 09/06/23 13:19 Dose: Not Given Levothyroxine Sodium (Levothyroxine 50 Mcg Tab) 50 mcg PO DAILY@0600 [facility] Last Admin: 09/06/23 06:37 Dose: 50 mcg Lidocaine HCl (Lidocaine 1% (10mg/Ml) For Iv Start) 0.1 ml INTRADERMA PER PROTOCOL PRN PRN Reason: IV Start Magnesium Hydroxide (Magnesium Hydroxide 2,400 Mg/30 Ml Cup) 2,400 mg PO DAILY [facility] Last Admin: 09/06/23 10:54 Dose: Not Given Metoprolol Succinate (Metoprolol Succinate (Er) 25 Mg Tab.Er.24h) 25 mg PO BID [facility] Last Admin: 09/06/23 10:54 Dose: Not Given Naloxone HCl (Naloxone 0.4 Mg/Ml 1 Ml Vial) 0.2 mg IV Q2M PRN PRN Reason: Opioid Reversal Last Admin: 08/31/23 16:45 Dose: 0.2 mg Ondansetron HCl (Ondansetron 4 Mg/2 Ml Vial) 4 mg IVP Q8HR PRN PRN Reason: Nausea And Vomiting Pantoprazole Sodium (Pantoprazole 40 Mg Tablet) 40 mg PO 0730 [facility] Last Admin: 09/06/23 06:37 Dose: 40 mg Quetiapine Fumarate (Quetiapine 25 Mg Tab) 12.5 mg PO HS [facility] Rivaroxaban (Rivaroxaban 15 Mg Tab) 15 mg PO DAILY@1700 [facility]; Protocol Last Admin: 09/06/23 18:02 Dose: Not Given Senna/Docusate Sodium (Sennosides-Docusate Sodium 1 Each Tab) 2 each PO DAILY [facility] Last Admin: 09/06/23 10:54 Dose: Not Given Silver Sulfadiazine (Silver Sulfadiazine 1% Cream 25 Gm Tube) 1 applic TOPICAL BID [facility]; Protocol Last Admin: 09/06/23 11:39 Dose: 1 applic Tramadol HCl (Tramadol 50 Mg Tab) 50 mg PO QID PRN PRN Reason: Breakthrough Pain Last Admin: 09/06/23 00:19 Dose: 50 mg Social history: Lives at [facility]. Uses a walker. Patient smoked a pack a day for about 70 years. Stopped in 2018. No alcohol intake. Physical examination: VITAL SIGNS: 97.6, 60, 15, 92 x 45, 92% on 3 L GENERAL: Lethargic, does arouse with calling out EYES: Pupils equal. Conjunctiva tony l. HEENT: External appearance of nose and ears normal, oral cavity grossly normal. NECK: JVD not raised; masses not palpable. HEART: First and second heart sounds are normal; no edema. LUNGS: Respiratory rate increased, some basal crackles. ABDOMEN: Soft, nontender, liver spleen not palpable, no masses palpable. PSYCH: Lethargic MUSCULOSKELETAL:No Clubbing/cyanosis;muscles-grossly intact. OA in several joints. Right knee in immobilizer brace. Edema in both lower extremity. Some skin discoloration distally INVESTIGATIONS, reviewed in the clinical context: Chest x-ray [September 05] fluid overload CT brain [September 05] chronic changes September 05: White count 8.1 hemoglobin 9.3 potassium 4.7 BUN 36 creatinine 1.13. Procalcitonin 0.17 September 04: Sodium 136 potassium 5.5 BUN 39 creatinine 1.38 September 02: Sodium 133 potassium 5.2 creatinine 1.98 September 01: White count 8.8 hemoglobin 10.2 platelets 211 potassium 5.3 BUN 37 creatinine 2.09 August 31, 2023: White count 11.5 hemoglobin 12.8 platelets 251 sodium 136 potassium 4.8 BUN 33 creatinine 27 creatinine 1.59 AST 37 ALT 19 EKG tracing personally reviewed by me-sinus rhythm. Nonspecific T wave Changes Chest x-ray film personally reviewed by me-cardiomegaly. Some venous prominenc e. X-ray of the right knee and hip: Distal femoral diaphyseal oblique fracture with mild diastases. Advanced DJD of the right knee. Left hip prosthesis. Previous labs: Creatinine 1.8 on July 2021 Assessment plan: -Acute right distal femoral diaphyseal oblique fracture with mild diastasis. Secondary to fall. Right intramedullary nail by Dr. Samuels on August 31. Immobilizer in place. -Possible aspiration pneumonia IV Zosyn -Acute delirium with metabolic encephalopathy, multifactorial.: Worsening Limited pain medications -CAD with a prior history of stent Patient not on aspirin per home medications. Xarelto -Paroxysmal atrial fibrillation currently in sinus rhythm Toprol-XL 50 mg twice daily. 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 -Hyperlipidemia Lipitor 40 mg nightly -Primary osteoarthritis Pain medication as needed -Chronic congestive heart failure from diastolic dysfunction EF 55 to 60% [July 2023]: Stable Diuretic held for now -COPD and ex-smoker DuoNeb 4 times daily to optimize pulmonary function perioperatively. -Chronic gait dysfunction, uses a walker at baseline -DNR. Patient doing poorly. Blood pressure low. Given IV fluids. IV Zosyn added for possible aspiration pneumonia. Not able to take oral medications Advance care planning [September 05: This was discussed with the patient at the bedside. Other family members are present. Daughter is the POA. She understands patient follow-up close is guarded. Given advanced age and multiple comorbidities. At this point decided to proceed with informational visit with hospice. Will continue with supportive care. Depending on clinical course will decide about disposition tomorrow. 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 aortogram, ERCP, 4 cardiac stents, left hip replacement Past Anesthesia/Blood Transfusion Reactions: Family History of Problems w/ Anesthesia Additional Past Anesthesia/Blood Transfusion Reaction / Comm: sister-long time to come out Date of Last Stent Placement:: 2010? Type of Cardiac Device: Permanent Pacemaker Device Placement Date:: 2023 replaced Past Psychological History: No Psychological Hx Reported Smoking Status: Former smoker Past Alcohol Use History: None Reported Additional Past Alcohol Use History / Comment(s): Patient quit smoking in 2019. She smoked one pack per day for 70 years Past Drug Use History: None Reported
[2023-09-06] MEDS: QUEtiapine 25 MG TAB PO SCH (22:21)
[2023-09-07 02:40] VITALS: TEMP 98
[2023-09-07 07:43] VITALS: BP 78/56
[2023-09-07] MEDS ORDERED: ONDANSETRON 4 MG/2 ML VIAL IVP PRN (13:03)
[2023-09-07] MEDS ORDERED: METOCLOPRAMIDE 5 MG/ML 2 ML VIAL IVP PRN (13:03)
[2023-09-07] MEDS ORDERED: ATROPINE OPHTH SOLN 1% 5ML BTL SUBLINGUAL PRN (13:03)
[2023-09-07] MEDS: MORPHINE SULFATE 2 MG/ML SYRINGE IV PRN (13:57)
[2023-09-07] MEDS: SCOPOLAMINE 1 MG/72 HR PATCH TRANSDERM SCH (13:57)
--- NOTE | 2023-09-07 14:30 | P.PN ---
Subjective Progress Note Date: 09/07/23 This is an 87-year-old female patient with a known history of hypothyroidism, hyperlipidemia, atrial fibrillation anticoagulated with Xarelto, congestive heart failure, coronary artery disease with stent placement, pacemaker. Presented here to the emergency room on August 31, 2023 after sustaining a fall and with significant right leg pain. Was found to have a comminuted displaced right distal femur fracture. She had undergone retrograde intra medullary nailing on 09/01/2023. Yesterday the patient had an episode of choking on her food and difficulty swallowing and concern with possible aspiration. We are consulted today for the same. Chest x-ray shows no acute pulmonary process. White count 8.8. Hemoglobin 10.2. Platelets 211. Sodium 133. Potassium 5.2. Bicarb 30. BUN 41. Creatinine 1.98. Glucose 141. She is currently on bronchodilators as needed. Anticoagulated with Xarelto. She is currently resting in bed. Awake and alert in no acute distress. She is having an occasional cough and shortness of breath. The patient is seen today September 05, 2023 in follow-up on the regular medical floor. She is currently resting comfortably in bed. Awake and alert in no acute distress. Maintaining good O2 saturations in the 90s on 3 L/min per nasal cannula. She has 0.5% normal saline at 75 MLS per hour. Sodium 136. Potassium 5.5. Bicarb 29. BUN 39. Creatinine 1.38. Procalcitonin 0.18. She remains on bronchodilators. Anticoagulated with Xarelto. Currently on a regular diet. On today's evaluation of 09/06/2023, I am seeing the patient for a follow-up. The patient is having episodes of hypotension. The patient also is having episodes of diminished level of consciousness. Based on that, a CAT scan of the brain was done today that showed atrophy and chronic periventricular white matter changes. No acute process was identified. Chest x-ray showed some signs of ear ly volume overload. No consolidation or airspace disease. The patient's white cell count of 8.1 with a hemoglobin 9.3, BUN is at 36 with a creatinine of 1.1 and sodium levels at 135. Repeat procalcitonin level was at 0.17. The patient was given a bolus of 1 L of normal saline and she responded to that and the blood pressure is currently up to 94/50. No significant tachycardia. The patient is afebrile and she is on 3 L of oxygen by nasal cannula with a pulse ox of 98%. She remains lethargic and encephalopathic. She remains on anticoagulation with Xarelto regarding her chronic A-fib. The patient will be also started on broad-spectrum antibiotics pending further cultures. She is a DNR/DNI CODE STATUS. On today's evaluation of 09/07/2023, I am seeing the patient for a follow-up. The patient is feeling much better on today's evaluation. I felt that the patient was more alert compared to yesterday. However, further discussion with the family has resulted into end-of-life care on this patient. Hospice has been consulted. Objective - Vital Signs Vital signs: Vital Signs Temp 98.0 F 09/07/23 01:30 Pulse 60 09/07/23 14:09 Resp 12 09/07/23 14:09 BP 78/56 09/07/23 07:42 Pulse Ox 94 L 09/07/23 07:42 FiO2 Intake & Output 09/06/23 09/07/23 09/07/23 18:59 06:59 18:59 Output Total 560 450 Balance -560 -450 Weight 58.967 kg Output: Urine 560 450 Uretheral ([place]) 360 450 Other: Voiding Method Indwelling Catheter Indwelling Catheter - Exam GENERAL EXAM: Alert, pleasant 87-year-old female, resting in bed, on 3 L nasal cannula, comfortable in no apparent distress. The patient is encephalopathic, altered and confused. HEAD: Normocephalic. EYES: Normal reaction of pupils, equal size. NOSE: Clear with pink turbinates. THROAT: No erythema or exudates. NECK: No masses, no JVD. CHEST: No chest wall deformity. LUNGS: Equal air entry with few scattered rhonchi. CVS: S1 and S2 normal with no audible murmur, regular rhythm. ABDOMEN: No hepatosplenomegaly, normal bowel sounds, no guarding or rigidity. SPINE: No scoliosis or deformity SKIN: No rashes CENTRAL NERVOUS SYSTEM: No focal deficits, tone is normal in all 4 extremities. The patient is confused and encephalopathic. Pupils are equal reactive to light at around 4 mm in size. She is moaning. Unable to hold a conversation at this point in time. Family is at the bedside. EXTREMITIES: Right hip surgical dressing dry and intact, there is no peripheral edema. No clubbing, no cyanosis. Peripheral pulses are intact. - Labs CBC & Chem 7: 09/06/23 06:20 09/06/23 06:20 Labs: Abnormal Lab Results - Last 24 Hours (Table) 09/06/23 Range/Units 13:05 Procalcitonin 0.17 H (0.02-0.09) ng/mL Assessment and Plan Plan: Acute hypoxemic respiratory failure secondary to possible aspiration secondary to choking on food. Chest x-ray shows no acute pulmonary process. Repeat chest x-ray from today shows some early volume overload and the patient is currently on 3 L of oxygen by nasal cannula. Encephalopathy, rule out underlying sepsis. Rule out metabolic encephalopathy. CAT scan of the brain was negative. Acute CVA cannot be completely ruled out as the patient has chronic atrial fibrillation nevertheless the patient has been maintained on anticoagulation with Xarelto. No focal neurological deficit at this point in time. Rule out delirium. Recent fall and right hip fracture status post intramedullary nailing on 09/01/2023 Acute kidney injury, creatinine stable for now and is improved to 1.1 Acute hypotension, rule out underlying sepsis. The patient will be given IV fluids and started on broad-spectrum antibiotics. Procalcitonin level is mildly elevated. Hyperkalemia secondary to above, recovered History of atrial fibrillation, anticoagulated with Xarelto. Pacemaker in place Coronary disease with previous stent placement Hypertension Hyperlipidemia Hypothyroidism History of congestive heart failure Plan: Continue monitoring the mental status. Family has made a decision to proceed with end-of-life care/hospice care. Hospice has been consulted. Pulmonary and critical care services will sign off.
--- NOTE | 2023-09-07 16:29 | P.PN ---
Progress Note - Text Progress Note Date: 09/07/23 - Chief Complaint Right hip pain - History of Present Illness This is a pleasant 87-year-old patient, follows with Dr. Powers. Chronic stable medical conditions include atrial fibrillation, CAD, CHF, COPD, hypertension hyperlipidemia, chronic lymphedema, DJD prior history of CAD with stent. At baseline does use a walker. No chest pain or short of breath. Patient took a fall with pain in the right leg. X-ray confirmed right distal femur fracture with slight displacement. Brace was placed in the ER. Pain in the operative site. No nausea vomiting. August 31: Laying in bed. Tired. Jacki mobilizer on the right leg. Being sched uled for surgery. No chest pain. Breathing stable. September 01: Yesterday patient underwent IM nailing of the right femur. Up in a recliner. Immobilizer in place. Pain present. Ate some breakfast and lunch. Looking at rehab inpatient. September 02: Having pain at the operative site. Up in a recliner. Eating about 25 to 50%. Later this afternoon nurse called that patient's oxygenation is decreased. Chest x-ray ordered. Pulmonary consulted. September 03: Patient was seen by pulmonary. Chest x-ray unremarkable. But sleepy. Not eating much also getting pain medications. Has complaining of pain in the right knee. Continue IV fluids 75 cc an hour. Because of decreased oral intake. September 04: Patient is somewhat delirious. Decreased oral intake. Will DC [place]. Use Ultram as needed. Also add Seroquel at night. 1 dose of Kayexalate for hyperkalemia. September 05: Patient rather sleepy this morning. Blood pressure was low. Given fluid bolus. Patient's daughter who is the POA was at the bedside. Family members present. I did explain that patient prognosis guarded. Due to multiple problems prognosis and options are limited. X-ray did show some pleural fluid. But because of low blood pressure again options limited.. Urgent CT scan this morning showed chronic changes. Hospice consulted for informational visit. Zosyn was added for possible aspiration pneumonia September 06. t: Patient remains lethargic. Does mumble at times. Appears to be in pain. Not able to take anything by mouth. Lengthy discussion with patient's daughter/POA the bedside. Understands prognosis poor. Looking at hospice options. In the meantime patient be made comfort care. hotel manager also discussed with. They are looking at different options for hospice. Other medications will be discontinued. Active Medications Atropine Sulfate (Atropine Ophth Soln 1% 5ml Btl) 2 drops SUBLINGUAL Q4HR PRN PRN Reason: Excess Secretions Sodium Chloride (Saline 0.45%) 1,000 mls @ 75 mls/hr IV .[id number] [facility] Last Admin: 09/07/23 06:07 Dose: 75 mls/hr Metoclopramide HCl (Metoclopramide 5 Mg/Ml 2 Ml Vial) 10 mg IVP QID PRN PRN Reason: Nausea Morphine Sulfate (Morphine Sulfate 2 Mg/Ml Syringe) 2 mg IV Q15M PRN PRN Reason: Breakthrough Pain Last Admin: 09/07/23 13:57 Dose: 2 mg Ondansetron HCl (Ondansetron 4 Mg/2 Ml Vial) 4 mg IVP Q8HR PRN PRN Reason: Nausea/emesis Scopolamine (Scopolamine 1 Mg/72 Hr Patch) 1 patch TRANSDERM Q72H [facility] Last Admin: 09/07/23 13:57 Dose: 1 patch Social history: Lives at [facility]. Uses a walker. Patient smoked a pack a day for about 70 years. Stopped in 2018. No alcohol intake. Physical examination: VITAL SIGNS: 98, 61, 16, 78 x 56, 94% on 4 L GENERAL: Lethargic, does attempt to speak slowly. EYES: Pupils equal. Conjunctiva tony l. HEENT: External appearance of nose and ears normal, oral cavity grossly normal. NECK: JVD not raised; masses not palpable. HEART: First and second heart sounds are normal; no edema. LUNGS: Respiratory rate increased, some basal crackles. ABDOMEN: Soft, nontender, liver spleen not palpable, no masses palpable. PSYCH: Lethargic MUSCULOSKELETAL:No Clubbing/cyanosis;muscles-grossly intact. OA in several joints. Right knee in immobilizer brace. Edema in both lower extremity. Some skin discoloration distally INVESTIGATIONS, reviewed in the clinical context: Chest x-ray [September 05] fluid overload CT brain [September 05] chronic changes September 05: White count 8.1 hemoglobin 9.3 potassium 4.7 BUN 36 creatinine 1.13. Procalcitonin 0.17 September 04: Sodium 136 potassium 5.5 BUN 39 creatinine 1.38 September 02: Sodium 133 potassium 5.2 creatinine 1.98 September 01: White count 8.8 hemoglobin 10.2 platelets 211 potassium 5.3 BUN 37 creatinine 2.09 August 31, 2023: White count 11.5 hemoglobin 12.8 platelets 251 sodium 136 potassium 4.8 BUN 33 creatinine 27 creatinine 1.59 AST 37 ALT 19 EKG tracing personally reviewed by me-sinus rhythm. Nonspecific T wave Changes Chest x-ray film personally reviewed by me-cardiomegaly. Some venous prominence. X-ray of the right knee and hip: Distal femoral diaphyseal oblique fracture with mild diastases. Advanced DJD of the right knee. Left hip prosthesis. Previous labs: Creatinine 1.8 on July 2021 Assessment plan: -Acute right distal femoral diaphyseal oblique fracture with mild diastasis. Secondary to fall. Right intramedullary nail by Dr. Samuels on August 31. Immobilizer in place. -Possible aspiration pneumonia IV Zosyn -Acute delirium with metabolic encephalopathy, multifactorial.: Not improving Limited pain medications -CAD with a prior history of stent Patient not on aspirin per home medications. Xarelto -Paroxysmal atrial fibrillation currently in sinus rhythm Toprol-XL 50 mg twice daily. 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 -Hyperlipidemia Lipitor 40 mg nightly -Primary osteoarthritis Pain medication as needed -Chronic congestive heart failure from diastolic dysfunction EF 55 to 60% [July 2023]: Stable Diuretic held for now -COPD and ex-smoker DuoNeb 4 times daily to optimize pulmonary function perioperatively. -Chronic gait dysfunction, uses a walker at baseline -DNR./Comfort care Advance care planning [September 06] Lengthy discussion with daughter at the bedside. also present. hotel manager Efren also present. Overall prognosis poor. After lengthy discussion decided to proceed with comfort measures. Also hospice has been consulted to see if patient can be transferred to assisted living. [facility] was consulted. Discussed with them. Also discussed with the case worker and nurse. This point decided with the daughter to stop all medications. Only comfort measures medications. 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 aortogram, ERCP, 4 cardiac stents, left hip replacement Past Anesthesia/Blood Transfusion Reactions: Family History of Problems w/ Anesthesia Additional Past Anesthesia/Blood Transfusion Reaction / Comm: sister-long time to come out Date of Last Stent Placement:: 2010? Type of Cardiac Device: Permanent Pacemaker Device Placement Date:: 2023 replaced Past Psychological History: No Psychological Hx Reported Smoking Status: Former smoker Past Alcohol Use History: None Reported Additional Past Alcohol Use History / Comment(s): Patient quit smoking in 2019. She smoked one pack per day for 70 years Past Drug Use History: None Reported
[2023-09-08 13:07] VITALS: PULSE 72; RESP 8
--- NOTE | 2023-09-08 13:16 | P.DS ---
Providers Date of admission: 08/31/23 11:17 Expected date of discharge: 09/08/23 Attending physician: Tommy Adrian Consults: 08/31/23 11:13 Consult Physician Urgent Consulting Provider: Royal Murillo Consult Reason/Comments: Cardiac clearance, surgical clearance Do you want consulting provider notified?: Yes 08/31/23 11:36 Consult Physician Urgent Consulting Provider: Duc Horner Consult Reason/Comments: Medical management, surgical clearance Do you want consulting provider notified?: Yes 09/03/23 14:56 Consult Physician Routine Consulting Provider: Fazal Caraballo Consult Reason/Comments: Possible Aspiration, low SPO2 Do you want consulting provider notified?: Yes Primary care physician: Parminder Powers MD Hospital Course: - Chief Complaint Right hip pain - History of Present Illness This is a pleasant 87-year-old patient, follows with Dr. Powers. Chronic stable medical conditions include atrial fibrillation, CAD, CHF, COPD, hypertension hyperlipidemia, chronic lymphedema, DJD prior history of CAD with stent. At baseline does use a walker. No chest pain or short of breath. Patient took a fall with pain in the right leg. X-ray confirmed right distal femur fracture with slight displacement. Brace was placed in the ER. Pain in the operative site. No nausea vomiting. August 31: Laying in bed. Tired. Jacki mobilizer on the right leg. Being scheduled for surgery. No chest pain. Breathing stable. September 01: Yesterday patient underwent IM nailing of the right femur. Up in a recliner. Immobilizer in place. Pain present. Ate some breakfast and lunch. Looking at rehab inpatient. September 02: Having pain at the operative site. Up in a recliner. Eating about 25 to 50%. Later this afternoon nurse called that patient's oxygenation is decreased. Chest x-ray ordered. Pulmonary consulted. September 03: Patient was seen by pulmonary. Chest x-ray unremarkable. But sleepy. Not eating much also getting pain medications. Has complaining of pain in the right knee. Continue IV fluids 75 cc an hour. Because of decreased oral intake. September 04: Patient is somewhat delirious. Decreased oral intake. Will DC [place]. Use Ultram as needed. Also add Seroquel at night. 1 dose of Kayexalate for hyperkalemia. Lauren 8: Patient rather sleepy this morning. Blood pressure was low. Given fluid bolus. Patient's daughter who is the POA was at the bedside. Family members present. I did explain that patient prognosis guarded. Due to multiple problems prognosis and options are limited. X-ray did show some pleural fluid. But because of low blood pressure again options limited.. Urgent CT scan this morning showed chronic changes. Hospice consulted for informational visit. Zosyn was added for possible aspiration pneumonia September 06. t: Patient remains lethargic. Does mumble at times. Appears to be in pain. Not able to take anything by mouth. Lengthy discussion with patient's daughter/POA the bedside. Understands prognosis poor. Looking at hospice options. In the meantime patient be made comfort care. junior brand manager also discussed with. They are looking at different options for hospice. Other medications will be discontinued. September 07: Remains lethargic/encephalopathic. Not eating. Supplemental oxygen.. Patient being discharged to [facility] home today. With [facility]. Discussed with Raysa-classification case manager. Except for comfort medication other medications have been discontinued Discussion and discharge planning more than 35 minutes Social history: Lives at [facility]. Uses a walker. Patient smoked a pack a day for about 70 years. Stopped in 2018. No alcohol intake. Physical examination: VITAL SIGNS: A-fib plan, 16, 72, 94% on 4 L GENERAL: Lethargic, delayed that. EYES: Pupils equal. Conjunctiva tony l. HEENT: External appearance of nose and ears normal, oral cavity grossly normal. NECK: JVD not raised; masses not palpable. HEART: First and second heart sounds are normal; no edema. LUNGS: Respiratory rate increased, some basal crackles. ABDOMEN: Soft, nontender, liver spleen not palpable, no masses palpable. PSYCH: Lethargic MUSCULOSKELETAL:No Clubbing/cyanosis;muscles-grossly intact. OA in several joints. Right knee in immobilizer brace. Edema in both lower extremity. Some skin discoloration distally INVESTIGATIONS, reviewed in the clinical context: Chest x-ray [September 05] fluid overload CT brain [September 05] chronic changes September 05: White count 8.1 hemoglobin 9.3 potassium 4.7 BUN 36 creatinine 1.13. Procalcitonin 0.17 September 04: Sodium 136 potassium 5.5 BUN 39 creatinine 1.38 September 02: Sodium 133 potassium 5.2 creatinine 1.98 September 01: White count 8.8 hemoglobin 10.2 platelets 211 potassium 5.3 BUN 37 creatinine 2.09 August 31, 2023: White count 11.5 hemoglobin 12.8 platelets 251 sodium 136 potassium 4.8 BUN 33 creatinine 27 creatinine 1.59 AST 37 ALT 19 EKG tracing personally reviewed by me-sinus rhythm. Nonspecific T wave Changes Chest x-ray film personally reviewed by me-cardiomegaly. Some venous prominence. X-ray of the right knee and hip: Distal femoral diaphyseal oblique fracture with mild diastases. Advanced DJD of the right knee. Left hip prosthesis. Previous labs: Creatinine 1.8 on July 2021 Assessment plan: -Acute right distal femoral diaphyseal oblique fracture with mild diastasis. Secondary to fall. Right intramedullary nail by Dr. Samuels on August 31. Immobilizer in place. -Possible aspiration pneumonia IV Zosyn -Acute delirium with metabolic encephalopathy, multifactorial.: Not improving Limited pain medications -CAD with a prior history of stent Patient not on aspirin per home medications. Xarelto -Paroxysmal atrial fibrillation currently in sinus rhythm Toprol-XL 50 mg twice daily. 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 -Hyperlipidemia Lipitor 40 mg nightly -Primary osteoarthritis Pain medication as needed -Chronic congestive heart failure from diastolic dysfunction EF 55 to 60% [July 2023]: Diuretic held for now -COPD and ex-smoker DuoNeb 4 times daily to optimize pulmonary function perioperatively. -Chronic gait dysfunction, uses a walker at baseline -DNR./Comfort care Advance care planning [September 06] Lengthy discussion with daughter at the bedside. also present. junior brand manager Efren also present. Overall prognosis poor. After lengthy discussion decided to proceed with comfort measures. Also hospice has been consulted to see if patient can be transferred to assisted living. [facility] was consulted. Discussed with them. Also discussed with the classification case manager and nurse. This point decided with the daughter to stop all medications. Only comfort measures medications. 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 aortogram, ERCP, 4 cardiac stents, left hip replacement Past Anesthesia/Blood Transfusion Reactions: Family History of Problems w/ Anesthesia Additional Past Anesthesia/Blood Transfusion Reaction / Comm: sister-long time to come out Date of Last Stent Placement:: 2010? Type of Cardiac Device: Permanent Pacemaker Device Placement Date:: 2023 replaced Past Psychological History: No Psychological Hx Reported Smoking Status: Former smoker Past Alcohol Use History: None Reported Additional Past Alcohol Use History / Comment(s): Patient quit smoking in 2019. She smoked one pack per day for 70 years Past Drug Use History: None Reported Plan - Discharge Summary New Discharge Prescriptions: New Scopolamine 1 mg/72 Hr Patch [TransDerm Scop] 1 patch TRANSDERM Q72H patch Atropine Ophth Soln 1% 5Ml [Isopto Atropine 1% 5Ml] 2 drops SUBLINGUAL Q4HR PRN ml PRN Reason: Excess Secretions Continue Levothyroxine Sodium [Synthroid] 50 mcg PO DAILY@0600 Potassium Chloride ER [K-Dur 20] 20 meq PO BID@0900,1700 Pantoprazole [Protonix] 40 mg PO DAILY Ferrous Sulfate [Iron (65 MG Elemental)] 325 mg PO DAILY Amiodarone [Cordarone] 200 mg PO DAILY SILVER sulfADIAZINE CREAM [Silvadene Cream] 1 applic TOPICAL BID Ammonium Lactate Lotion [Lac-Hydrin 12% Lotion] 1 applic TOPICAL BID@0900,1400 traMADol HCl [Ultram] 25 mg PO Q6H PRN PRN Reason: Pain Metoprolol Succinate (ER) [Toprol XL] 50 mg PO BID Menthol-Zinc Oxide Oint [Calmoseptine Ointment] 1 applic TOPICAL BID@0900,1700 Rivaroxaban [Xarelto] 15 mg PO DAILY@1700 allopurinoL [Zyloprim] 100 mg PO DAILY Atorvastatin [Lipitor] 40 mg PO HS Torsemide [Demadex] 40 mg PO DAILY@0600 Ipratropium-Albuterol Nebulize [Duoneb 0.5 mg-3 mg/3 ml Soln] 3 ml INHALATION RT-Q6H PRN PRN Reason: Shortness Of Breath Loratadine 10 mg PO Q8H PRN PRN Reason: Allergy Symptoms Torsemide [Soaanz] 20 mg PO DAILY@1400 Discharge Medication List Levothyroxine Sodium [Synthroid] 50 mcg PO DAILY@0600 11/07/14 [History] Potassium Chloride ER [K-Dur 20] 20 meq PO BID@0900,1700 03/06/19 [History] Rivaroxaban [Xarelto] 15 mg PO DAILY@1700 07/23/21 [History] allopurinoL [Zyloprim] 100 mg PO DAILY 05/04/23 [History] Atorvastatin [Lipitor] 40 mg PO HS 05/10/23 [History] Amiodarone [Cordarone] 200 mg PO DAILY 07/16/23 [History] Ferrous Sulfate [Iron (65 MG Elemental)] 325 mg PO DAILY 07/16/23 [History] Pantoprazole [Protonix] 40 mg PO DAILY 07/16/23 [History] SILVER sulfADIAZINE CREAM [Silvadene Cream] 1 applic TOPICAL BID 07/31/23 [History] Torsemide [Demadex] 40 mg PO DAILY@0600 07/31/23 [History] Ammonium Lactate Lotion [Lac-Hydrin 12% Lotion] 1 applic TOPICAL BID@0900,1400 08/31/23 [History] Ipratropium-Albuterol Nebulize [Duoneb 0.5 mg-3 mg/3 ml Soln] 3 ml INHALATION RT-Q6H PRN 08/31/23 [History] Loratadine 10 mg PO Q8H PRN 08/31/23 [History] Menthol-Zinc Oxide Oint [Calmoseptine Ointment] 1 applic TOPICAL BID@0900,1700 08/31/23 [History] Metoprolol Succinate (ER) [Toprol XL] 50 mg PO BID 08/31/23 [History] Torsemide [Soaanz] 20 mg PO DAILY@1400 08/31/23 [History] traMADol HCl [Ultram] 25 mg PO Q6H PRN 08/31/23 [History] Atropine Ophth Soln 1% 5Ml [Isopto Atropine 1% 5Ml] 2 drops SUBLINGUAL Q4HR PRN ml 09/08/23 [Rx] Scopolamine 1 mg/72 Hr Patch [TransDerm Scop] 1 patch TRANSDERM Q72H patch 09/08/23 [Rx] Activity/Diet/Wound Care/Special Instructions: Orthopedic Discharge Instructions: 1. Resume home medications 2. Toe touch weightbearing right lower extremity 3. Recommend use of knee immobolizer when transferring/weightbearing 4. Ice and elevate 5. Local wound care 6. Stitches can be removed 09/15/2023 7. Follow up at [facility] in 2 weeks Discharge Disposition: HOME WITH HOSPICE
== END 2023-09-08 13:21 | disposition hospice, home (50) | DRG 480 ==
LOC: EC 09:23 → 4SSUR 11:17
PROVIDERS: ADMIT Hospitalist; ATTEND Hospitalist
PROC: 3E0T3BZ Introduction of Anesthetic Agent into Peripheral Nerves and Plexi, Percutaneous Approach (ICD-10-PCS; 2023-09-01)
PROC: 0QS606Z Reposition Right Upper Femur with Intramedullary Internal Fixation Device, Open Approach (ICD-10-PCS; principal; 2023-09-01 17:00)
PROC: 3E0F7SF Introduction of Other Gas into Respiratory Tract, Via Natural or Artificial Opening (ICD-10-PCS; 2023-09-04)
DX: S72.491A Other fracture of lower end of right femur, initial encounter for closed fracture (principal); J69.0 Pneumonitis due to inhalation of food and vomit; J96.01 Acute respiratory failure with hypoxia; I48.92 Unspecified atrial flutter; I13.0 Hypertensive heart and chronic kidney disease with heart failure and stage 1 through stage 4 chronic kidney disease, or unspecified chronic kidney disease; I50.32 Chronic diastolic (congestive) heart failure; I48.19 Other persistent atrial fibrillation; N17.9 Acute kidney failure, unspecified; F05 Delirium due to known physiological condition; G93.49 Other encephalopathy; E03.9 Hypothyroidism, unspecified; Z79.01 Long term (current) use of anticoagulants; Z79.890 Hormone replacement therapy; E87.5 Hyperkalemia; E78.5 Hyperlipidemia, unspecified; Z87.442 Personal history of urinary calculi; J44.9 Chronic obstructive pulmonary disease, unspecified; B19.20 Unspecified viral hepatitis C without hepatic coma; I25.10 Atherosclerotic heart disease of native coronary artery without angina pectoris; I25.2 Old myocardial infarction; I49.5 Sick sinus syndrome; M16.11 Unilateral primary osteoarthritis, right hip; M17.11 Unilateral primary osteoarthritis, right knee; N18.9 Chronic kidney disease, unspecified; R13.10 Dysphagia, unspecified; W01.0XXA Fall on same level from slipping, tripping and stumbling without subsequent striking against object, initial encounter; Z79.899 Other long term (current) drug therapy; Z85.41 Personal history of malignant neoplasm of cervix uteri; Z90.710 Acquired absence of both cervix and uterus; Z95.0 Presence of cardiac pacemaker; Z95.5 Presence of coronary angioplasty implant and graft; Z96.642 Presence of left artificial hip joint; Z66 Do not resuscitate; I95.9 Hypotension, unspecified; Z51.5 Encounter for palliative care; I48.0 Paroxysmal atrial fibrillation
CPT/HCPCS: 36415; 70450; 71045; 71046; 73502; 80048; 80053; 81001; 84145; 85025; 85610; 85730; 87040; 93005; 94640; 94760; 96374; 96375; 96376; 99285